=== PATIENT | female | born 1975 | race African-American/Black ===

== ENCOUNTER 2024-06-12 20:57 | Outpatient (OUT) | payer OTHER, SELFPAY | END 2024-06-12 20:58 | disposition home or self-care (01) | LOC: SLEEP 20:57 | PROVIDERS: PCP Family Medicine; Visit Provider Family Medicine | DX: G47.33 Obstructive sleep apnea (adult) (pediatric) (principal) | CPT/HCPCS: 95811 ==

== ENCOUNTER 2024-06-13 06:33 | Emergency (ER) | payer OTHER, SELFPAY ==
[2024-06-13 06:39] VITALS: BP 122/86; PULSE 74; TEMP 36.6; O2SAT 99; BMI 37.8
--- NOTE | 2024-06-13 06:49 | PC.NURSE ---
left side facial swelling that patient noticed when she woke up this morning. She had swelling of gums to left upper mouth yesterday, then had sleep study last night. She mentioned that she bumped her mouth and thinks that might be the cause. She states that she has also had some sinus issues and has been taking Sudafed. No other complaints, denies pain.
--- NOTE | 2024-06-13 07:26 | ED.DENTAL1 ---
HPI - Dental/Oral General Chief complaint: Dental/Oral Stated complaint: face swelling Time Seen by Provider: 06/13/24 07:04 Source: patient Mode of arrival: walk-in Limitations: no limitations History of Present Illness HPI Narrative: 48-year-old female presents to the emergency department for swelling to her left face. She notes that she has bad teeth in the left upper dentition and is overdue for having it looked at. She has not had difficulty breathing or swelling and has not had a fever. Symptoms present for a few days. Related Data Previous Rx's ?Medication ?Instructions ?Recorded fluconazole 150 mg tablet 150 mg PO ONCE #1 tab 06/13/24 penicillin V potassium 250 mg 250 mg PO QID 10 days #40 tabs 06/13/24 tablet Allergies Allergy/AdvReac Type Severity Reaction Status Date / Time metoclopramide (From Reglan) Allergy Severe Difficulty Verified 06/13/24 06:46 Breathing Sulfa (Sulfonamide Allergy Severe Difficulty Verified 06/13/24 06:46 Antibiotics) Breathing naproxen AdvReac Severe Unknown Verified 06/13/24 06:46 Review of Systems ROS Narrative A ten point review of systems is negative except as noted above. PFSH PFSH Social History Little interest or pleasure in doing things: not at all Feeling down, depressed, or hopeless: not at all Exam Narrative Exam Narrative: Nurses note and vital signs reviewed and patient is not hypoxic. General: The patient appears well and in no apparent distress. Patient is resting comfortably on cart. Skin: Warm, dry, no pallor noted. There is no rash noted. Head: Normocephalic, atraumatic Eye: Normal conjunctiva, no drainage Ears, Nose, Mouth, and Throat: oral mucosa is moist. Nares patent. Mild swelling present to the left side of her face near the left jaw. No swelling to the floor of her mouth and she is handling oral secretions well. Significant dental caries present in the left upper dentition with many teeth eroded down to the gumline. No bleeding or pus present. Cardiovascular: Regular Rate and Rhythm Respiratory: Patient is in no distress, no accessory muscle use, lungs are clear to auscultation, no wheezing, rales or rhonchi Back: non-tender GI: Soft and nontender Musculoskeletal: The patient has no evidence of calf tenderness, no pitting edema, symmetrical pulses noted bilaterally Neurological: A&O, normal speech Psychiatric: Cooperative Constitutional Vital Signs, click to edit/add: Last Vital Signs Temp 97.9 F 06/13/24 06:39 Pulse 74 06/13/24 06:39 Resp 16 06/13/24 06:39 BP 122/86 06/13/24 06:39 Pulse Ox 99 06/13/24 06:39 O2 Del Method Room Air 06/13/24 06:39 Course Vital Signs Vital signs: Vital Signs Temperature 97.9 F 06/13/24 06:39 Pulse Rate 74 06/13/24 06:39 Respiratory Rate 16 06/13/24 06:39 Blood Pressure 122/86 06/13/24 06:39 Pulse Oximetry 99 06/13/24 06:39 Oxygen Delivery Method Room Air 06/13/24 06:39 Temperature 97.9 F 06/13/24 06:39 Pulse Rate 74 06/13/24 06:39 Respiratory Rate 16 06/13/24 06:39 Blood Pressure 122/86 06/13/24 06:39 Pulse Oximetry 99 06/13/24 06:39 Oxygen Delivery Method Room Air 06/13/24 06:39 MDM - Dental/Oral MDM Narrative Medical decision making narrative: She is provided a prescription for penicillin and Diflucan. 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 She was also given dental referral list. Treatment diagnosis and follow-up were discussed with the patient. Differential Diagnosis Differential diagnosis: Likely gingival abscess, dental caries, toothache and dental abscess Discharge Plan Discharge Chief Complaint: Dental/Oral Clinical Impression: Dental caries Patient Disposition: Home, Self-Care Time of Disposition Decision: 07:24 Condition: Good Mode of Transportation: Private Vehicle Prescriptions / Home Meds: New penicillin V potassium 250 mg tablet 250 mg PO QID 10 Days Qty: 40 0RF fluconazole 150 mg tablet 150 mg PO ONCE Qty: 1 0RF Print Language: Maori Instructions: Toothache (ED) Additional Instructions: Follow-up with dentistry, list provided Referrals: Destin Simeon MD [Primary Care Provider] - 1 week
== END 2024-06-13 07:36 | disposition home or self-care (01) ==
PROVIDERS: Emergency Provider Emergency Medicine; PCP Family Medicine
DX: K02.9 Dental caries, unspecified (principal)
CPT/HCPCS: 99283

== ENCOUNTER 2024-09-05 19:46 | Outpatient (REF) | payer OTHER, SELFPAY ==
[2024-09-08 11:07] LABS: Age Gdln ACOG Testing Note (.); HPV Aptima Negative (Negative); IGP, Aptima HPV, rfx 16/18,45 Note (.)
== END 2024-09-05 19:47 | disposition home or self-care (01) ==
LOC: LAB 19:46
PROVIDERS: PCP Family Medicine; Visit Provider Obstetrics & Gynecology
DX: Z01.419 Encounter for gynecological examination (general) (routine) without abnormal findings (principal)
CPT/HCPCS: 87624; 88175

== ENCOUNTER 2025-01-22 01:16 | Emergency (ER) | payer OTHER, SELFPAY ==
--- OUTSIDE RECORDS SUMMARY | 2025-01-15 15:03 | XMS_ITS | Encounter Summary ---
Author Organization [facility] tem Address [id number] [address] [place] [address] Care Team Providers [employer] Name Role Phone Destin Hubbard MD Primary Care Provider [phone] Reason for Referral * Misc (Routine) - Pending Review Specialty Diagnoses / Procedures Referred By Contac t Referred To Contact Procedures Discharge Follow-Up Nikhil Woodall MD [address] [place] [address] Phone: tel: fax: Referral ID Status Reason Start Date Expiration Date V isits Requested Visits Authorized [id number] Pending Review 01/16/2025 01/16/2026 1 1 * Misc (Routine) - Pending Review Specialty Diagnoses / Procedures Referred By Jasbir keane Referred To Contact Diagnoses Weakness History of stroke 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 Procedures Follow-up with primary care provider Nikhil Woodall MD [address] [place] [address] Phone: tel: fax: Referral ID Status Reason Start Date Expiration Date V isits Requested Visits Authorized [id number] Pending Review 01/16/2025 01/16/2026 1 1 * Consultation (Routine) - Authorized Specialty Diagnoses / Procedures Referred By Jasbir keane Referred To Contact Rehabilitation Diagnoses Weakness History of stroke 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 Nikhil Woodall MD [address] [place] [address] Phone: tel: fax: [facility] [address] [place] [address] Phone: tel: fax: Referral ID Status Reason Start Date Expiration Date Visits Requested Visits Authorized [id number] Authorized Specialty Services Required 01/16/2025 07/19/2025 12 12 Reason for Visit * Reason Comments Stroke Alert * Auth/Cert (Routine) Specialty Diagnoses / Procedures Referred By Jasbir keane Referred To Contact Diagnoses Weakness Nikhil Woodall MD [address] [place] [address] Phone: tel: fax: Referral ID Status Reason Start Date Expiration Date Visits Re quested Visits Authorized [id number] 1 1 Encounter Details Date Type Department Care Team (Latest Contact Info) Description 01/15/2025 3:03 PM EDT - 01/16/2025 3:45 PM EDT Hospital Encounter [facility] [address] [place] [id number] Severiano Shah MD [address] [place] [address] Nikhil Woodall MD [address] [place], [place] [id number] 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 No 01/16/2025 AUDIT-C Answer Date Recorded Q1: How often do you have a drink containing alc ohol? 2-4 times a month 12/27/2024 Q2: How many drinks containi ng alcohol do you have on a typical day when you are drinking? 1 or 2 12/27/2024 Q3: How often do you have si x or more drinks on one occasion? Never 12/27/2024 PHQ-2 Answer Date Recorded Total Score 0 12/27/2024 PRAPARE - Transportation Answer Date Re corded In the past 12 months, has l ack of transportation kept you from medical appointments or from getting medications? No 12/29 In the past 12 months, has l ack of transportation kept you from meetings, work, or from getting things needed for daily living? No 01/16/2025 Housing Instability Answer Date Recorde d Are you worried or concerned that in the next two months you may not have stable housing that you own, rent or stay in as a part of a household? No 01/16/2025 Childcare Answer Date Recorded Childcare Unknown 02/08/2019 Employment Answer Date Recorded Employment Unknown 02/08/2019 Hunger Screening Answer Date Recorded Within the past 12 months we worried whether our food would run out before we got money to buy more. Never True 01/16/2025 Within the past 12 months th e food we bought just didn't last and we didn't have money to get more. Never True 01/16/2025 Purpose - Life Answer Date Recorded Purpose and direction in life Unknown Comments No Sex and Gender Information Value Date Recorded Sex Assigned at Not on file Legal Sex Female 11:27 AM EDT Gender Identity Not on file Sexual Orientation Not on file documented as of this encounter Last Filed Vital Signs Vital Sign Reading Time Taken Comments Blood Pressure 105/62 01/16/2025 12:13 PM EDT Pulse 75 01/16/2025 12:13 PM EDT Temperature 36.9 C (98.5 F) 01/16/2025 12:13 PM EDT Respiratory Rate 17 01/16/2025 12:13 PM EDT Oxygen Saturation 99% 01/16/2025 12:13 PM EDT Inhaled Oxygen Concentration - - Weight 104 kg (229 lb 4.8 oz) 01/15/2025 6:22 PM EDT Height 154.9 cm (5' 1 ) 01/15/2025 6:22 PM EDT Body Mass Index 43.33 01/15/2025 6:22 PM EDT documented in this encounter Functional Status * Question Answer Date of Assessment Author Functional Status Minimum assistance 01/15/2025 8:00 P M EDT Abdirashid Hernandez RN * Intimate Partner Violence Question Answer Date of Assessment Author Within the last year, have y ou been humiliated or emotionally abused in other ways by your partner or ex-partner? No 01/16/2025 12:00 AM Abdirashid Garcia RN Within the last year, have y ou been afraid of your partner or ex-partner? No 01/16/2025 12:00 AM ED T Abdirashid Hernandez RN Within the last year, have y ou been raped or forced to have any kind of sexual activity by your partner or ex-partner? No 01/16/2025 12:00 AM Abdirashid Garcia RN Within the last year, have y ou been kicked, hit, slapped, or otherwise physically hurt by your partner or ex-partner? No 01/16/2025 12:00 AM EDT Abdirashid Hernandez RN documented as of this encounter Mental Status * Question Answer Entry Date Author Overall Cognitive Status X 01/16/2025 2:08 PM EDT Fannie Nolasco CCC-MANAGER OF SOFTWARE documented in this encounter Discharge Summaries * Nikhil Woodall MD - 01/16/2025 2:30 PM EDT Images from the original note were not included. [facility] Medicine Discharge Summary Patient: Jamey Ceja Date of : 1975 Room: [facility] Encounter date: 01/16/25 DATE OF ADMISSION: 01/15/2025 DATE OF DISCHARGE:01/16/2025 DISCHARGE DIAGNOSES Principal Problem: Stroke-like symptoms Active Problems: TTP (thrombotic thrombocytopenic purpura) ([facility]) Weakness History of thrombectomy History of stroke Leukocytosis Hypomagnesemia Acute deep vein thrombosis (DVT) of femoral vein of right lower extremity ([facility]) CONSULTANTS Tele-Neurology PCP: DESTIN HUBBARD MD HOSPITAL COURSE SUMMARY Jamey Ceja is a 49 y.o. female who presents with complaints of left- sided facial droop and slurred speech last known well was 518 at 9:30 p.m. patient's family reports she had a recent stroke they are unsure if she is going to require more assistance at home or possible going to an assisted living at time of discharge due to requiring more help with her activities of daily living. Patient has been 100% compliant with medications including Eliquis. Last stroke was 12/26/2024 Is a known everyday smoker. Blood pressure normotensive in the ER NIH stroke score is a 6 secondaryto left arm falls right leg falls left leg falls articulation and mild dysarthria. Stroke alert wascontacted recommended admitting for MRI. Patient is not a TNK candidate secondary to being out of the time window. Results in the ER include white blood cell count 11.5 hemoglobin 10.4 hematocrit 32.1 platelets 218absolute neutrophils 9.3 INR normal PTT 25 electrolytes normal excluding 190 glucose calcium 8.3 GFR 85 phosphorus is 2.9 troponin initially done x1 negative TSH 0.[address] brain No acute intracranial abnormality, CT angiogram was completed with also no large vessel pathologies. MRI was completed, T1 phase could not be complete his secondary to claustrophobia howeverthere was no signs of ischemia or signs of CVA. Patient's neurological status returned to her baseline. Multiple family members are present in the room and did share concerns for mood and lack of motivation. Patient is insomnia, narcoleptic, unmotivated, bitter since her last CVA. Has lost some function since that time. She was evaluated by Physical therapy and MANAGER OF SOFTWARE without any significant concerns. Elected for outpatient physical therapy to be continued. No major cerebrovascular events was found. Most likely diagnosis during this admission was likely combination of depression with migraine headache with neuropathic symptoms. Code Status: Full Code Labs Recent Results (from the past 48 hours) Bedside Glucose *Place/Obtain serum glucose if >500 per glucometer. Collection Time: 01/15/25 3:06 PM Result Value Ref Range Bedside Glucose (POC) 174 (H) 65 - 99 mg/dL Troponin I, High Sensitivity Collection Time: 01/15/25 3:20 PM Narrative The following orders were created for panel order Troponin I, High Sensitivity. Procedure Abnormality Status --------- ------ Troponin I, High Sensiti...[[id number]] Normal Final result Troponin I, High Sensiti...[[id number]] Please view results for these tests on the individual orders. Basic Metabolic Panel Collection Time: 01/15/25 3:20 PM Result Value Ref Range SODIUM 135 134 - 146 mmol/L POTASSIUM 4.3 3.5 - 5.0 mmol/L CHLORIDE 101 98 - 109 mmol/L CARBON DIOXIDE 25 22 - 32 mmol/L ANION GAP 9 5 - 15 mmol/L BLOOD UREA NITROGEN 19 5 - 23 mg/dL CREATININE 0.85 0.40 - 1.00 mg/dL GLUCOSE 190 (H) 65 - 99 mg/dL CALCIUM 8.3 (L) 8.5 - 10.5 mg/dL EGFR Non-Race Dependent 85 >=60 ml/min/1.73sq.m Protime & INR Collection Time: 01/15/25 3:20 PM Result Value Ref Range PROTIME 12.2 9.8 - 13.2 sec INR 1.1 0.9 - 1.2 APTT Collection Time: 01/15/25 3:20 PM Result Value Ref Range APTT 25 (L) 26 - 37 sec CBC auto differential Collection Time: 01/15/25 3:20 PM Result Value Ref Range WBC 11.5 (H) 4 - 11 x10E9/L RBC Count 3.48 (L) 3.8 - 5.2 X10E12/L Hemoglobin 10.4 (L) 11.7 - 15.5 g/dL Hematocrit 32.1 (L) 35 - 47 % MCV 92 80 - 100 fL MCH 29.8 27 - 34 pg MCHC 32.3 32 - 36 g/dL RDW 20.0 (H) 11.5 - 15 % Platelet Count 218 150 - 450 X10E9/L MPV 7.4 7 - 12 fL Myelocyte 1 % % Bands Neutrophils 3 % Neutrophils Relatives 77 % Lymphocytes Relative 15 % Monocytes Relative 1 % Eosinophils Relative 1 % Atypical Lymphocytes Relative 2 % nRBC 1 Neutrophils Absolute (M) 9.3 (H) 1.5 - 6.6 10*3/uL Lymphocytes Absolute 1.9 1.0 - 3.5 10*3/uL Monocytes Absolute 0.1 0.0 - 0.9 10*3/uL Eosinophils Absolute 0.1 0.0 - 0.4 10*3/uL Hypochromia 1+ Polychromasia 1+ Dacryocytes 1+ Differential Type MANUAL DIFFERENTIAL Troponin I, High Sensitivity 0 Hour Collection Time: 01/15/25 3:20 PM Result Value Ref Range TROPONIN I, HIGH SENSITIVITY 9 <16 ng/L Thyroid profile includes TSH FT4 Collection Time: 01/15/25 3:20 PM Result Value Ref Range FREE T4 0.89 0.61 - 1.60 ng/dL TSH 0.46 (L) 0.49 - 4.67 uIU/mL Phosphorus Collection Time: 01/15/25 3:20 PM Result Value Ref Range PHOSPHORUS 2.9 2.4 - 4.9 mg/dL Bedside Glucose *Place/Obtain serum glucose if >500 per glucometer. Collection Time: 01/15/25 9:55 PM Result Value Ref Range Bedside Glucose (POC) 225 (H) 65 - 99 mg/dL Comprehensive metabolic panel Collection Time: 01/16/25 4:28 AM Result Value Ref Range SODIUM 137 134 - 146 mmol/L POTASSIUM 3.5 3.5 - 5.0 mmol/L CHLORIDE 102 98 - 109 mmol/L CARBON DIOXIDE 23 22 - 32 mmol/L ANION GAP 12 5 - 15 mmol/L BLOOD UREA NITROGEN 18 5 - 23 mg/dL CREATININE 0.93 0.40 - 1.00 mg/dL GLUCOSE 140 (H) 65 - 99 mg/dL CALCIUM 9.0 8.5 - 10.5 mg/dL TOTAL PROTEIN 5.7 (L) 6.0 - 8.0 g/dL ALBUMIN 3.2 3.2 - 5.3 g/dL ALKALINE PHOSPHATASE 65 39 - 130 U/L AST 17 <=41 U/L ALT 39 (H) <=31 U/L BILIRUBIN,TOTAL 0.6 0.3 - 1.2 mg/dL EGFR Non-Race Dependent 76 >=60 ml/min/1.73sq.m Magnesium Collection Time: 01/16/25 4:28 AM Result Value Ref Range MAGNESIUM 1.7 (L) 1.8 - 2.6 mg/dL CBC auto differential Collection Time: 01/16/25 4:28 AM Result Value Ref Range WBC 14.0 (H) 4 - 11 x10E9/L RBC Count 3.30 (L) 3.8 - 5.2 X10E12/L Hemoglobin 10.1 (L) 11.7 - 15.5 g/dL Hematocrit 30.8 (L) 35 - 47 % MCV 93 80 - 100 fL MCH 30.5 27 - 34 pg MCHC 32.7 32 - 36 g/dL RDW 20.2 (H) 11.5 - 15 % Platelet Count 204 150 - 450 X10E9/L MPV 7.9 7 - 12 fL Myelocyte 1 % % Bands Neutrophils 1 % Neutrophils Relatives 70 % Lymphocytes Relative 23 % Monocytes Relative 5 % nRBC 1 Neutrophils Absolute (M) 10.0 (H) 1.5 - 6.6 10*3/uL Lymphocytes Absolute 3.2 1.0 - 3.5 10*3/uL Monocytes Absolute 0.7 0.0 - 0.9 10*3/uL RBC Morphology Reviewed Differential Type MANUAL DIFFERENTIAL Lipid profile Collection Time: 01/16/25 4:28 AM Result Value Ref Range CHOLESTEROL 170 150 - 200 mg/dL TRIGLYCERIDE 97 27 - 150 mg/dL HDL CHOLESTEROL 71 >39 mg/dL LDL (CALC) 80 <130 mg/dL CHOLESTEROL:HDL 2.4 1.0 - 5.0 VERY LOW LIPOPROTEIN 19 0 - 30 mg/dL Hemoglobin A1c Collection Time: 01/16/25 4:28 AM Result Value Ref Range HEMOGLOBIN A1C 5.6 4.4 - 5.6 % EST. AVERAGE GLUCOSE 114 mg/dL Extra Tubes Collection Time: 01/16/25 4:28 AM Narrative The following orders were created for panel order Extra Tubes. Procedure Abnormality Status --------- ------ Light Blue Top[[id number]] Final result Please view results for these tests on the individual orders. Light Blue Top Collection Time: 01/16/25 4:28 AM Result Value Ref Range Extra Tube Auto Resulted Procalcitonin Collection Time: 01/16/25 4:28 AM Result Value Ref Range PROCALCITONIN 0.06 (H) <0.05 ng/mL Narrative <0.50 ng/mL - Low risk of severe sepsis and/or septic shock. <2.00 ng/mL - Recommend retesting within 6-24 hours. >2.00 ng/mL - High risk of sepsis and/or septic shock. Iron and TIBC Collection Time: 01/16/25 4:28 AM Result Value Ref Range IRON 84 50 - 170 ug/dL TRANSFERRIN 216 168 - 336 mg/dL IRON BINDING 302 250 - 425 ug/dL IRON SATURATION 28 15 - 50 % SATURATION Ferritin Collection Time: 01/16/25 4:28 AM Result Value Ref Range FERRITIN 90 11 - 307 ng/mL Urinalysis Collection Time: 01/16/25 11:35 AM Specimen: Urine Result Value Ref Range COLOR Yellow Yellow, Colorless TURBIDITY Clear Clear SPECIFIC GRAVITY 1.020 1.003 - 1.035 NITRITE Negative Negative PH,URINE 6.5 5.0 - 8.5 LEUKOCYTE ESTERASE Negative Negative PROTEIN Negative Negative KETONES (URINE) Negative Negative UROBILINOGEN 0.2 eu/dL 0.2 eu/dL, 1.0 eu/dL BILIRUBIN (URINE) Negative Negative BLOOD/HGB Negative Negative GLUCOSE (URINE) Negative Negative, 250 mg/dL, >1000 mg/dL Narrative Urine received without preservative. Delays in transport may affect results. Interpret with caution. A clinical correlation is recommended. , urine Collection Time: 01/16/25 11:35 AM Specimen: Urine Result Value Ref Range URINE Negative Negative Bedside Glucose *Place/Obtain serum glucose if >500 per glucometer. Collection Time: 01/16/25 12:19 PM Result Value Ref Range Bedside Glucose (POC) 155 (H) 65 - 99 mg/dL Radiology MR brain without contrast Result Date: 01/16/2025 Narrative: EXAM: MRI BRAIN WITHOUT CONTRAST CLINICAL HISTORY: CVA, rule out. TECHNIQUE: TECHNIQUE: Routine multiplanar multisequence MR imaging of the brain was performed without contrast. Please note, sagittal T1 postcontrast sequence was not obtained as the patient could not tolerate completion of the examination due to claustrophobia. COMPARISONS: MRI dated 12/27/2024 FINDINGS: There is no restricted diffusion. There are only a couple of faint tiny foci of FLAIR hyperintensity within the cerebral white matter, nonspecific though most commonly seen in the setting of chronic ischemic small vessel disease. The wilson- white matter differentiation is preserved. There is no intracranial mass effect. The ventricles are proportional to the overall brain volume without evidence for outflow obstruction. There is no shift of the midline structures and the basal cisterns are widely patent. There isno susceptibility to suggest the presence of intracranial blood degradation products. There is a small focus of nonaggressive polypoid mucosal thickening in a left ethmoid air cell. The paranasal sinuses are otherwise well aerated. The mastoids are clear. IMPRESSION: 1. Please note, a sagittal T1 postcontrast sequence was not obtained as the patient could not tolerate completion of the examination due to claustrophobia. 2. No evidence for acute intracranial abnormalities. 3. There are only a couple of tiny foci of FLAIR hyperintensity within the cerebral white matter. These are nonspecific, though most commonly seen in the setting of chronic ischemic small vessel disease. They can also be seen in the setting of chronic headaches. There is no evidence for an acute infarct or intracranial ma ss effect. Finalized by Leonard Quinn MD on 01/16/2025 10:[address] angiogram head Result Date: 01/15/2025 Narrative: EXAM:CT CTA HEAD INDICATION: Left-sided facial droop COMPARISON: 12/26/2024 TECHNIQUE/PROTOCOL: CT angiogram of the head was performed following intravenous administration of 100 cc Omnipaque 350 nonionic intravenous contrast. 3-D maximum intensity projection images generated and reviewedunder concurrent physician supervision. Automated exposure control was utilized. Arterial blood flow was measured to assist the stroke clinical team in the diagnosis of large vessel occlusion in patients undergoing screening for acute ischemic stroke using Rapid AI software when clinically indicated. FINDINGS: Intracranial Intracranial ICAs: Normal bilaterally. MCAs: Patent bilaterally with symmetric distal arborization. ACAs: Normal bilaterally. AComm: Normal P- Comms and deliverer food: deliverer food are patent bilaterally. Posterior communicating arteries are not well visualized. Vertebral arteries: Normal tothe confluence with the basilar artery. Basilar artery: Normal. IMPRESSION: No large vessel occlusion, critical stenosis, or sizable aneurysm. Finalized by Rad Morales on 01/15/2025 4:[address] angiogram carotid Result Date: 01/15/2025 Narrative: CT ANGIOGRAM OF THE NECK CLINICAL INFORMATION: stroke like symptoms. TECHNIQUE: CT angiogram performed following intravenous administration of nonionic intravenous contrast. Coronal and sagittal and 3-D volume rendered maximum intensity projection images generated and reviewed under concurrent physician supervision. Automated exposure control utilized. The [place] Symptomatic Carotid Endarterectomy Trial (NASCET) method for calculating the degree of stenosis was utilized for stenosis measurements. COMPARISON: 12/26/2024 FINDINGS: There is a standard aortic arch configuration.There is no significant stenosis at the arch origins of the vessels. The visualized portions of the subclavian arteries are unremarkable. The common carotid arteries are well opacified without evidence for significant stenosis. The right carotid bifurcation is unremarkable with a widely patent origin of the internal carotid artery. The left carotid bifurcation is unremarkable with a widely patentorigin of the internal carotid artery. The internal carotid arteries are symmetric and well opacified throughout their cervical courses. The vertebral arteries are symmetric. The vertebral arteries are well opacified throughout their cervical courses and join to form a normal diameter basilar artery. IMPRESSION: Stable normal CTA neck. There is no stenosis in the neck. All CT scans at this facility use dose modulation, iterative reconstruction, and/or weight based dosing when appropriate to reduce radiation dose to as low as reasonably achievable. Finalized by Leonard Quinn MD on 01/15/2025 4:[address] brain without contrast stroke alert Result Date: 01/15/2025 Narrative: STUDY: CT BRAIN WO CONT STROKE ALERT INDICATION: Stroke, follow up; assessment of stroke/hemorrhage:. TECHNIQUE: * CT head was performed without intravenous contrast using the standard protocol. Automated exposure control was utilized. * All CT scans at this facility use dose modulation,iterative reconstruction, and/or weight based dosing when appropriate to reduce radiation dose to as low as reasonably achievable. FINDINGS: No evidence of acute intracranial hemorrhage, territorial infarct, mass effect, midline shift, or extra-axial fluid collection. Ventricles, sulci and cistern are unremarkable. Brain volume is age appropriate. Partially empty sella. Orbits and globes appear unremarkable. Soft tissues are unremarkable. Opacification of the left anterior ethmoid air cell. Mastoid air cells are broadly clear. No evidence of aggressive osseous lesion. IMPRESSION: * No acute intracranial abnormality, by CT. MRI is more sensitive for evaluation of ischemia or subtle parenchymal abnormalities. * Partially empty sella. Finalized by Dillon Escobar on 01/15/2025 3:31 PM Vas venous duplex lwr single right Result Date: 01/04/2025 Narrative: Previous: Previous lower extremity venous duplex exam performed 12/29/2024: RIGHT: ACUTE femoral deep vein thrombosis (DVT). Right: Partially compressible common femoral with Isoechoic intraluminal content and spontaneous, phasic spectral Doppler signals. Remaining visualized deep venous segments are compressible with spontaneous phasic spectral Doppler waveforms. Superficial veins are compressible. Left: Common femoral vein is compressible with spontaneous phasic / spectral Doppler waveforms. Conclusions: RIGHT:Common femoral deep vein thrombosis (DVT), UNDETERMINED AGE.NO EVIDENCE of superficial vein thrombosis of the lower extremity.LEFT:NO EVIDENCE of deep vein thrombosis (DVT)of the common femoral vein. Comparison is made to previous lower extremity venous duplex examination dated December 29, 2024 (RIGHT: ACUTE femoral deep vein thrombosis (DVT)). The acute right common femoral DVT has evolved into a more chronic process. No new thrombotic material was identified. Recommendations: Any questions prior to finalization, please call the reading physician during normal businesshours at the phone number beside their name. Vas venous duplex lwr bilateral Result Date: 12/31/2024 Narrative: Right: Dilated, partially compressible common femoral with hypoechoic intraluminal content and spontaneous, phasic spectral Doppler signals. Remaining visualized deep venous segments are compressible with spontaneous phasic spectral Doppler waveforms. Superficial veins are compressible. Left: Lower extremity deep veins are compressible with spontaneous phasic spectral Doppler waveforms; superficial veins are compressible without intraluminal content. Conclusions: RIGHT:ACUTE femoral deep vein thrombosis (DVT). NO EVIDENCE of superficial vein thrombosis of the lower extremity. LEFT:NO EVIDENCE of deep or superficial vein thrombosis of the lower extremity. Recommendations: Any questions prior to finalization, please call the reading physician during normal business hours at the phone number beside their name. IR CICV non tunneled more than 5 years Result Date: 12/30/2024 Narrative: CENTRAL VENOUS CATHETER PLACEMENT WITH ULTRASOUND GUIDANCE DATE: 12/30/2024 2:36 PM INDICATION: Urgent plasmapheresis ATTENDING: Pedro Rivera MD SEDATION: 50 mcg of fentanyl was given for pain control. Lidocaine 1% was given for local anesthesia. RADIATION DOSE: Automatic radiation exposure lowering techniques were utilized. All elements of maximal sterile barrier techniques followed including: cap and mask and sterile gown and sterile gloves and a large sterile sheet and hand hygiene and 2% chlorhexidine for cutaneous antisepsis. The total fluoroscopic time used during the procedure was 0.4 min, a total of 1 fluoroscopic spot images were obtained and saved in PACS , and the r eference air kerma was 3.74 mGy. PROCEDURE: The procedure, risks, including technical failure, bleeding, infection, vessel injury, arrhythmia, loss of limb, and , and alternatives, were discussed with the patient and all questions were answered. Written informed consent obtained. Accompanying paperwork was verified for accuracy. Directed history and physical exam performed prior to the procedure. Medication reconciliation performed by nursing personnel. Procedure was performed using a cap,sterile gown, sterile gloves, a large sterile sheet, hand hygiene and 2% chlorhexidine for cutaneous antisepsis. The patient was positioned supine on the table and prepped and draped in usual sterilefashion. A critical pause was performed with assisting personnel just prior to the procedure with the patient's identity confirmed using 2 identifiers, confirming site and side. Ultrasound was used to demonstrate a patent right internal jugular vein and appropriate directional flow, with an image saved in the permanent medical record. 1% lidocaine with epinephrine was used for local anesthesia. Asmall skin incision was made with blunt dissection into the subcutaneous tissues. The vein was thenpunctured under real-time sonographic guidance. A wire was advanced in to the IVC. The tract was then upsized to accommodate a 15 cm trialysis catheter with tip terminating at the cavoatrial junction. Catheter was secured in place with suture. Catheter function was tested, and all lumens were foundto function well. Lumens of the catheter were flushed with anticoagulant. The patient tolerated theprocedure well with no immediate complication IMPRESSION: Successful image guided placement of a tri alysis catheter via the right internal jugular vein with the catheter tip terminating at the cavoatrial junction. The catheter is available for immediate use. Finalized by Pedro Rivera MD on 12/30/2024 2:37 PM Echo complete W/O contrast Result Date: 12/28/2024 Narrative: Left Ventricle: Left ventricle appears normal in size. Systolic function is normal with an ejection fraction of 55-60%. Left Atrium: Left atrium is normal in size. Agitated saline bubble study revealed no evidence of right to left interatrial shunting . Right Ventricle: Right ventricularsize appears normal. The right ventricular basal diameter is 31.0 mm. Systolic function is normal. Aortic Valve: The aortic valve is trileaflet. There is trace regurgitation. There is no evidence of aortic valve stenosis. Ultrasound abdomen limited Result Date: 12/28/2024 Narrative: US ABDOMEN LMTD HISTORY: Thrombocytopenia COMPARISON: None TECHNIQUE: Multiple real-timegrayscale images were obtained in transverse and sagittal projections. Color Doppler was used. FINDINGS: Diffusely increased hepatic echogenicity compatible with hepatocellular disease. Although nonspecific, this is most likely secondary to steatosis. Within these limits, no focal hepatic lesion demonstrated. No intrahepatic biliary dilatation. The common bile duct is not dilated and measures 0.5cm. Main portal vein is patent with appropriate direction of flow and peak velocity of 28.1 cm/s. The gallbladder is surgically absent. Visualized portions of the pancreatic head and body are unremarkable. Included images of the spleen demonstrate normal echotexture. The spleen is normal in size measuring 8.7 cm in length. IMPRESSION: * Hepatic steatosis. * Otherwise unremarkable limited abdominal ultrasound. Approved by Carlo Epps DO on 12/28/2024 7:32 AM Prince Mireles DO have personally reviewed the image(s) and agree with and/or edited the report Finalized by Prince Orozco DO on 12/28/2024 7:56 AM MR brain without contrast Result Date: 12/28/2024 Narrative: STUDY: MRI brain without contrast CLINICAL HISTORY: Stroke. Thrombectomy December 26, 2024 COMPARISON:May 21, 2013 Procedure: Multiplanar, multisequence imaging performed through the brain, without IV contrast. Findings: There are no intracranial masses, mass-effect, extra-axial fluidcollection, or hydrocephalus. Sensitivity for acute hemorrhage limited on MRI, but grossly no acutehemorrhage identified. Midline sagittal structures are negative including pituitary fossa, infundibulum, optic chiasm, corpus callosum, brainstem, fourth ventricle, cerebellum, and cranio-cervical junction. There are appropriate flow voids in large cerebral vessels on T2 weighted imaging. Punctate restricted diffusion within the right occipital lobe suggests a acute lacunar infarct axial image 31series 8. Similar lacunar infarct left insular cortex axial image 37 IMPRESSION: * Acute lacunar infarcts left insular cortex and right occipital lobe suggesting embolic phenomenon. No other acute findings. * Note is again made an empty sella morphology which can be physiologic but can also be seenwith idiopathic intracranial hypertension and best assessed in combination with other clinical dataWorkstation:[id number] Finalized by Juanpablo Scanlon MD on 12/28/2024 5:59 AM Neuro Invasiv Result Date: 12/27/2024 Narrative: Jamey Ceja is 49 y.o. who was transferred to [facility] with acute onsetleft hemispheric stroke symptoms. Noncontrast head CT scan was unrevealing for acute findings. On arrival NIH stroke scale score was 10. ASPECT score was 10. CT angiogram showed concern for distal left MCA M1 occlusion. Given the patient's profound symptoms and relative sparing of the cortical regions we felt that the patient may still benefit from mechanical thrombectomy. The risks, alternates and benefits of the procedure were discussed with the patient's family. Up to 5-8 percent risk of complication including but not limited to failure, arterial injury, stroke, intercerebral hemorrhage, co ntrast nephropathy, groin complication and/or was quoted. Consent was obtained. Procedure: Jamey Ceja was identified and brought to the neuro IR suite. Patient was placed supine on the angio table. Bilateral groins were shaved, prepped and the patient was draped in the usual sterile manner. Using modified Seldinger technique a 6 [place] sheath was advanced in the right common femoral artery. Through this sheath we now advanced a 5 [place] Seymour 2 catheter over an 035 wire into the left subclavian artery. Selective catheterization angiography of the left common carotid, left internal carotid and right common femoral arteries were performed. Angiographic runs from the left common carotid artery showed intracranial left MCA M1 occlusion in its distal course. At this stage, an exchange length wire was advanced in the left internal carotid artery. The diagnostic catheter andthe short groin sheath was exchanged for a 6 [place] 90 cm NeuronMax sheath which was advanced into the distal cervical segment of the left internal carotid artery. Through this sheath we now advanceda triaxial assembly of Dory 6 [place] mid size catheter over a velocity microcatheter and a microwire into the supraclinoid segment of the left internal carotid artery. While maintaining a broad J at the tip of the microwire, the microcatheter was advanced to the site of occlusion. At this stage the mid size catheter was advanced over the micro wire micro catheter into the distal leftMCA M1 segment at the site of occlusion. Microwire & microcatheter were retrieved. Pump aspiration was performed. Small clot was retrieved. Follow-up angiographic run from the guide sheath showedthat the guide now in the external carotid artery. At this point, NeuroMax was pulled down into theleft common carotid artery. Under roadmap, Dory 6 [place] was advanced over synchro microwire intothe distal cervical ICA. Follow-up angiographic run from the Madeline catheter showed recanalization of the left middle cerebral artery. With pump aspiration, the Madeline 6 [place] was retrieved and then we did angiographic mckinney from the guide sheath which showed severe vasospasm involving the mid cervical ICA and unfortunately we occlusion of the distal left MCA M1 segment. Now using same triaxial system composed of Dory 6 [place] mid size catheter over a velocity microcatheter and a syncro 014 microwire into the supraclinoid segment of the left internal carotid artery. While maintaining a broad J at the tip of the microwire, the microcatheter was advanced to the site of occlusion. Dory 6F catheter was advanced over the micro wire micro catheter into the distal left MCA M1 segment at the site of occlusion. Micro wire micro catheter were retrieved. Pump aspiration was performed. After the 2nd pass, angiographic runs now show complete recanalization of the left MCA and its distal branches. Recanalization is graded as TICI 3. Now Dory 6F was readvanced into the proximal cervical segment of the left ICA. 10 mg of verapamil was slowly infused. Follow-up angiographic run showed markedly improved flow through the left internal carotid artery. At this stage we decided to conclude the procedure. Sheath was removed. Groin was closed using Angio- Seal device. Findings: Left Common Carotid Artery Angiogram: The left common carotid artery angiogram shows normal opacification of the leftcommon carotid artery up to the level of its bifurcation. The left common carotid artery at its bifurcation shows mild atherosclerotic changes. The left external carotid artery is identified. The left external carotid artery fills well with normal supply to head and face. The left internal carotid artery fills well through its cervical, horizontal and ascending petrous, cavernous and supraclinoidsegments. In its supraclinoid course the left ophthalmic artery is identified. Abrupt truncation ofthe left MCA M1 segment in its distal segment noted. The left anterior cerebral artery and its distal branches fill well. In mid to late arterial phase terminal left DAVE division branches are fillingthe left MCA territory in a retrograde fashion. Left internal carotid artery angiogram prior to aspiration thrombectomy showed the above to better advantage. Left internal carotid artery angiogram post thrombectomy and intra-arterial verapamil infusion for ICA vasospasm now show that the left MCA M1 segment as completely recanalized. Distal left MCA division branches are filling well. No abrupt ve ssel cut off noted. No intracranial aneurysms noted. Additionally there is markedly improved flow through the left ICA. Right Common Femoral Artery Angiogram: The right common femoral artery angiogram shows normal opacification of the right common femoral artery and its branches with normal runoff to the distal extremity. Impression:Jamey Ceja underwent diagnostic cerebral angiography and aspiration thrombectomy for an acute left MCA M1 occlusion. At the end of the procedure successful TICI 3 recanalization was achieved. Of note, patient received 10 mg of intra-arterial verapamil for severe midcervical left ICA segment vasospasm. Groin puncture time was 1636. First pass was made at 1648 and recanalization was at 1705. Total number of passes were 2. SBP goal <[address] brain without contrast Result Date: 12/27/2024 Narrative: STUDY: CT HEAD WITHOUT CONTRAST CLINICAL HISTORY: Transient altered level of consciousness. COMPARISON: None. TECHNIQUE: CT head was performed without contrast utilizing axial reconstruction with images reviewed in bone and brain windows. Automated exposure control was utilized. FINDINGS: Large amount of motion artifact. No acute hemorrhage edema nor mass effect. Decreased attenuation in the left MCA distributions basal ganglia consistent with known areas of nonhemorrhagic ischemia. Ventricles and cisterns are stable. Chronic inflammation of the ethmoids. IMPRESSION: * Nonhemorrhagic ischemia left basal ganglia as best seen on recent CT perfusion. No significant mass effect or mid line shift at this point. All CT scans at this facility use dose modulation, iterative reconstruction, and/or weight based dosing when appropriate to reduce radiation dose to as low as reasonably achievable. Finalized by Mando Hicks MD on 12/27/2024 7:[address] brain without contrast Result Date: 12/26/2024 Narrative: CT BRAIN WO CONT CLINICAL HISTORY: Stroke COMPARISON: 12/26/2024 No contrast obtained. Contrast is present from recent contrast enhanced CTA's. FINDINGS: There may be some subtle decreased density identified primarily within the left basal ganglia with decreased differentiation of the lentiform nucleus. At this time the cortex is not affected and wilson-white differentiation of the cortexremains intact. No evidence of intracranial hemorrhage. The patient does have evidence of a large penumbra consistent with ischemia in the left MCA distribution on a recent perfusion scan. No mass effect or midline shift skull and paranasal sinuses unremarkable. IMPRESSION: * There may be some subtle decreased density identified primarily within the left basal ganglia with decreased differentiation of the lentiform nucleus. At this time the cortex is not affected and wilson-white differentiation of the cortex remains intact. * No evidence of intracranial hemorrhage. * The patient does have evidence of a large penumbra consistent with ischemia in the left MCA distribution on a recent perfusionscan * All CT scans at this facility use dose modulation, iterative reconstruction, and/or weight based dosing when appropriate to reduce radiation dose to as low as reasonably achievable Finalized by Hi Streeter MD on 12/26/2024 5:[address] cerebral perfusion analysis Result Date: 12/26/2024 Narrative: CT BRAIN PERFUSION IMAGING: HISTORY: strke TECHNIQUE: Axial CT brain perfusion was performed during intravenous administration of 40 mL Omnipaque 350. Postprocessing with RAPID and/or CallsFreeCallso Via software was used. Specifically, maps of cerebral blood flow, cerebral blood volume, mean transit time and Tmax were calculated by using the perfusion source data. COMPARISON: CT brain same date. Image quality: Sufficient Arterial input function GEMA selected: Proximal left MCA Venous outflow function GEMA: [place] of sinuses FINDINGS: CT Perfusion Characteristics: CBF<30% volume: 0 mL. Tmax>6.0s volume: 141 mL Mismatch volume: 141 mL Mismatch ratio: Infiltrate Tmax>4.0s volume: 185 Comment: Scattered foci of low density in the right frontal, left parietal and basal ganglia distribution. IMPRESSION: * Findings compatible with known left MCA disease with parameters suggesting large penumbra. Note: Perfusion-CT was required in this patient because it: - assesses brain perfusion, - allows to screen for brain ischemia even before morphological damage can be seen, - can confirm or rule out the presence of a large, hemispheric, ischemic stroke and/or look at the presence of at risk tissue. All CT scans at this facility use dose modulation, iterative reconstruction, and/or weight based dosing when appropriate to reduce radiation dose to as low as reasonably achievable. Work station:[id number] Finalized by Prince Orozco DO on 12/26/2024 4:42 PM X-ray chest 1 view stroke Result Date: 12/26/2024 Narrative: History: Mental status changes Procedure: Chest AP portable upright Comparison: 10/03/2013Findings: The heart and lungs show no acute findings, and the mediastinum and darin are grossly negative . No pneumothorax. Impression: No acute pulmonary process. Finalized by Esteban Schulz MD on 12/26/2024 2:[address] angiogram head Result Date: 12/26/2024 Narrative: CLINICAL INFORMATION: stroke alert TECHNIQUE: CT angiogram of the head was performed following intravenous administration of nonionic intravenous contrast. 3-D maximum intensity projectionimages generated and reviewed under concurrent physician supervision. Automated exposure control was utilized. Arterial blood flow was measured to assist the stroke clinical team in the diagnosis of large vessel occlusion in patients undergoing screening for acute ischemic stroke using Rapid AI software when clinically indicated. All CT scans at this facility use dose modulation, iterative reconstruction, and/or weight based dosing when appropriate to reduce radiation dose to as low as reasonably achievable. COMPARISON: No relevant prior studies available. FINDINGS: The internal carotid arteries are patent throughout their course in the carotid canal and cavernous segment. There is abrupt occlusion of the distal left M1 segment. The right middle cerebral artery is patent. The anterior cerebral arteries are patent bilaterally. The V4 segment of the vertebral arteries is patent, the posterior cerebral arteries are patent bilaterally without flow- limiting stenosis or occlusion. Dural venous sinuses are grossly patent. IMPRESSION: * Abrupt occlusion of the distal left M1 segment of the middle cerebral artery. The remainder of the major arterial vessels the head are patent. Neurointerventional consultation is recommended. The critical results of this examination were communicated directly with Dr. Celaya on 12/26/2024 at 2:47 PM Finalized by Pedro Rivera MD on 12/26/2024 2:[address] angiogram carotid Result Date: 12/26/2024 Narrative: CLINICAL INFORMATION: stroke alert TECHNIQUE: CT angiogram performed following intravenous administration of nonionic intravenous contrast. Coronal and sagittal and 3-D volume rendered maximum intensity projection images generated and reviewed under concurrent physician supervision. Automated exposure control utilized. The [place] Symptomatic Carotid Endarterectomy Trial (NASCET) method for calculating the degree of stenosis was utilized for stenosis measurements. All CT scansat this facility use dose modulation, iterative reconstruction, and/or weight based dosing when appropriate to reduce radiation dose to as low as reasonably achievable. COMPARISON: No relevant prior studies available. FINDINGS: Visualized lung apices are clear. The thyroid is unremarkable. The vessels are patent at their origins, the common carotid arteries are patent throughout their course in the neck, the carotid bulbs are patent bilaterally. The internal carotid arteries are patent throughout their course in the neck without flow-limiting stenosis or occlusion. The origin of the vertebralarteries is patent bilaterally, the vertebral arteries are patent throughout their course in the neck without flow-limiting stenosis or occlusion. Multiple nodules within the parotid glands bilaterally of undetermined clinical significance. IMPRESSION: * No major arterial flow-limiting stenosis or o cclusion within the neck. * Multiple nodules within the parotid glands bilaterally of undetermined clinical significance, findings can relate to intraparotid lymph nodes or other primary salivary gland tumors, recommend dedicated evaluation with ultrasound. Finalized by Franki Rivera MD on 12/26/2024 2:[address] brain without contrast stroke alert Result Date: 12/26/2024 Narrative: CT BRAIN WO CONT STROKE ALERT INDICATION: Stroke. TECHNIQUE: CT of the head without intravenous contrast. Reviewed in brain, bone, and soft tissue windows. COMPARISON: CT 07/03/2013. FINDINGS: No intracranial hemorrhage. No territorial loss of wilson-white differentiation. The ventricular system is normal in size and morphology. No extra-axial fluid collections or shift of midline structures. Patent basal cisterns. No depressed or displaced calvarial fracture. IMPRESSION: 1. No acute intracranial abnormality. 2. MRI would better assess for occult abnormalities such as acute ischemia. All CT scans at this facility use dose modulation, iterative reconstruction, and/or weight based dosing when appropriate to reduce radiation dose to as low as reasonably achievable. Finalized by Mike Cunningham MD on 12/26/2024 2:14 PM DISCHARGE INSTRUCTION Discharge disposition: Home with homecare Condition:Stable Activity: activity as tolerated Diet: Adult diet Regular Texture; Consistent Carb 255 grams (2000 kcal) OUTPATIENT FOLLOW UP: DESTIN HUBBARD MD within 7-14 days. Labs/Imaging/Pathology: OUTPATIENT PHYSICAL THERAPY Discharge Medications: Medication List START taking these medications Instructions Last Dose Given Next Dose Due buPROPion XL 150 mg 24 hr tablet Commonly known as: WELLBUTRIN XL Take 1 tablet (150 mg total) by mouth every morning. CONTINUE taking these medications Instructions Last Dose Given Next Dose Due * apixaban 5 mg tablet Commonly known as: ELIQUIS Take 1 tablet (5 mg total) by mouth in the morning and 1 tablet (5 mg total) before bedtime. * apixaban 5 mg tablet Commonly known as: ELIQUIS Take 1 tablet (5 mg total) by mouth in the morning and 1 tablet (5 mg total) before bedtime. aspirin 81 mg Take 1 tablet (81 mg total) by mouth in the morning. atorvastatin 40 mg tablet Commonly known as: LIPITOR Take 1 tablet (40 mg total) by mouth nightly. LORazepam 0.5 mg tablet Commonly known as: ATIVAN Take 1 tablet (0.5 mg total) by mouth in the morning and 1 tablet (0.5 mg total) before bedtime. nystatin powder Commonly known as: MYCOSTATIN Apply 1 Application topically in the morning and 1 Application before bedtime. omeprazole 40 mg capsule Commonly known as: PriLOSEC Take 1 capsule (40 mg total) by mouth in the morning. pantoprazole 20 mg EC tablet Commonly known as: PROTONIX Take 2 tablets (40 mg total) by mouth in the morning. predniSONE 20 mg tablet Commonly known as: DELTASONE Take 4 tablets (80 mg total) by mouth daily with breakfast. Continue taking prednisolone until you follow up with Hematology. Please follow up with them MARTINEZ to determine how long you should be prednisolone. This medication is not lifelong and should be tapered off. senna 8.6 mg tablet Commonly known as: SENOKOT Take 1 tablet (8.6 mg total) by mouth in the morning. vitamin B-12 1000 MCG tablet Generic drug: cyanocobalamin Take 1 tablet (1,000 mcg total) by mouth in the morning. * This list has 2 medication(s) that are the same as other medications prescribed for you. Read thedirections carefully, and ask your doctor or other care provider to review them with you. Where to Get Your Medications These medications were sent to [facility] [address] [place] [address] [address] [facility] [phone] [address] [facility] [address] buPROPion XL 150 mg 24 hr tablet >30 minutes were spent on discharging this patient. NIKHIL WOODALL MD 01/16/2025 2:48 PM [facility] 7[facility] (all facilities): Message rounding JERAMY in [place] or page through [facility]. 7PM-7AM ([facility], [facility]): Page Night JERAMY, [phone]. 7PM-7AM ([facility], [place], [place] and [facility] Rehab): Page on-call JERAMY, . documented in this encounter Discharge Instructions * Attachments The following attachments cannot be sent through Care Everywhere. * Weakness (Sinhala) * Stroke ??? Discharge instructions (Sinhala) * Bupropion, ADULT (Sinhala) documented in this encounter Medications at Time of Discharge apixaban (ELIQUIS) 5 mg tablet Take 1 tablet (5 mg total) by mouth in the morning and 1 tablet (5 mg total) before bedtime. 60 tablet 01/01/2025 apixaban (ELIQUIS) 5 mg tablet Take 1 tablet (5 mg total) by mouth in the morning and 1 tablet (5 mg total) before bedtime. 60 tablet 2 01/04/2025 aspirin 81 mg Take 1 tablet (81 mg total) by mouth in the morning. 90 tablet 6 01/05/2025 atorvastatin (LIPITOR) 40 mg tablet Take 1 tablet (40 mg total) by mouth nightly. 90 tablet 3 01/05/2025 buPROPion XL (WELLBUTRIN XL) 150 mg 24 hr tablet Take 1 tablet (150 mg total) by mouth every morning. 30 tablet 01/16/2025 cyanocobalamin (vitamin B-12) 1000 MCG tablet Take 1 tablet (1,000 mcg total) by mouth in the morning. LORazepam (ATIVAN) 0.5 mg tablet Take 1 tablet (0.5 mg total) by mouth in the morning and 1 tablet (0.5 mg total) before bedtime. nystatin (MYCOSTATIN) powder Apply 1 Application topically in the morning and 1 Application before bedtime. 12/25/2024 omeprazole (PriLOSEC) 40 mg capsule Take 1 capsule (40 mg total) by mouth in the morning. pantoprazole (PROTONIX) 20 mg EC tablet Take 2 tablets (40 mg total) by mouth in the morning. predniSONE (DELTASONE) 20 mg tabletIndication s:Thrombocytopen ia Take 4 tablets (80 mg total) by mouth daily with breakfast. Continue taking prednisolone until you follow up with Hematology. Please follow up with them MARTINEZ to determine how long you should be prednisolone. This medication is not lifelong and should be tapered off. 30 tablet 2 01/05/2025 senna (SENOKOT) 8.6 mg tablet Take 1 tablet (8.6 mg total) by mouth in the morning. documented as of this encounter H&P Notes * Nikhil Woodall MD - 01/16/2025 8:57 AM EDT Images from the original note were not included. [facility] INTERNAL MEDICINE [facility] - ACUTE [facility]ARE [address] [facility] [id number] Hospital Medicine History & Physical Patient: Jamey Ceja Date of : 1975 Room: [facility] PCP: DESTIN HUBBARD MD Admission date: 01/15/2025 3:03 PM Encounter date: 01/16/25 Hospital Day: 2 SUBJECTIVE Jamey Ceja is a 49 y.o. female who presents with complaints of left- sided facial droop and slurred speech last known well was 518 at 9:30 p.m. patient's family reports she had a recent stroke they are unsure if she is going to require more assistance at home or possible going to an assisted living at time of discharge due to requiring more help with her activities of daily living. Patient has been 100% compliant with medications including Eliquis. Last stroke was 12/26/2024 Is a known everyday smoker. Blood pressure normotensive in the ER NIH stroke score is a 6 secondaryto left arm falls right leg falls left leg falls articulation and mild dysarthria. Stroke alert wascontacted recommended admitting for MRI. Patient is not a TNK candidate secondary to being out of the time window. Results in the ER include white blood cell count 11.5 hemoglobin 10.4 hematocrit 32.1 platelets 218absolute neutrophils 9.3 INR normal PTT 25 electrolytes normal excluding 190 glucose calcium 8.3 GFR 85 phosphorus is 2.9 troponin initially done x1 negative TSH 0.[address] brain No acute intracranial abnormality, by CT. MRI is more sensitive for evaluation of ischemiaor subtle parenchymal abnormalities. Partially empty sella. CTA head No large vessel occlusion, critical stenosis, or sizable aneurysm. CTA neck Stable normal CTA neck. There is no stenosis in the neck. EKG sinus rhythm PVCs borderline short MS interval consider anterior infarct borderline T abnormalities in the inferior leads Patient to be admitted for stroke workup and possible placement Allergies: Metoclopramide hcl, Sulfa (sulfonamide antibiotics), and Naproxen Prior to Admission medications Medication Sig Start Date End Date Taking? Authorizing Provider apixaban (ELIQUIS) 5 mg tablet Take 1 tablet (5 mg total) by mouth in the morning and 1 tablet (5 mg total) before bedtime. 01/01/25 Yes Itiya Robbie, AGRICULTURAL RESEARCH ENGINEER-AMUSEMENT RIDE INSPECTOR apixaban (ELIQUIS) 5 mg tablet Take 1 tablet (5 mg total) by mouth in the morning and 1 tablet (5 mg total) before bedtime. 01/04/25 Yes Itiya Robbie, AGRICULTURAL RESEARCH ENGINEER-AMUSEMENT RIDE INSPECTOR aspirin 81 mg Take 1 tablet (81 mg total) by mouth in the morning. 01/05/25 Yes Pedro Blanchard MD atorvastatin (LIPITOR) 40 mg tablet Take 1 tablet (40 mg total) by mouth nightly. 01/05/25 Yes Pedro Blanchard MD cyanocobalamin (vitamin B-12) 1000 MCG tablet Take 1 tablet (1,000 mcg total) by mouth in the morning. Yes Not In System Ref Prov LORazepam (ATIVAN) 0.5 mg tablet Take 1 tablet (0.5 mg total) by mouth in the morning and 1 tablet (0.5 mg total) before bedtime. Yes Not In System Ref Prov nystatin (MYCOSTATIN) powder Apply 1 Application topically in the morning and 1 Application before bedtime. 12/25/24 Yes Not In System Ref Prov omeprazole (PriLOSEC) 40 mg capsule Take 1 capsule (40 mg total) by mouth in the morning. Yes Not In System Ref Prov pantoprazole (PROTONIX) 20 mg EC tablet Take 2 tablets (40 mg total) by mouth in the morning. Yes Not In System Ref Prov predniSONE (DELTASONE) 20 mg tablet Take 4 tablets (80 mg total) by mouth daily with breakfast. Continue taking prednisolone until you follow up with Hematology. Please follow up with them MARTINEZ to determine how long you should be prednisolone. This medication is not lifelong and should be tapered off. 01/05/25 Yes Pedro Blanchard MD senna (SENOKOT) 8.6 mg tablet Take 1 tablet (8.6 mg total) by mouth in the morning. 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 Past Surgical History: Patient has a past surgical history that includes Appendectomy; Cholecystectomy; Hysterectomy; section; Tonsillectomy; Oophorectomy; Colonoscopy (N/A, 03/13/2024); and Thrombectomy (N/A, 12/26/2024). Family History: Patient's family history includes Migraines in her mother; No Known Problems in her father. Social History: Patient reports that she has been smoking cigarettes. She has a 20 pack-year smoking history. She has never used smokeless tobacco. She reports current alcohol use. She reports that she does not use drugs. Review of Systems Review of Systems Constitutional: Negative for activity change, appetite change, chills, diaphoresis, fatigue and fever. HENT: Negative for tinnitus and trouble swallowing. Respiratory: Negative for cough, chest tightness, shortness of breath and wheezing. Cardiovascular: Negative for chest pain, palpitations and leg swelling. Gastrointestinal: Negative for abdominal pain, diarrhea, nausea and vomiting. Genitourinary: Negative for difficulty urinating. Musculoskeletal: Negative for gait problem. Skin: Negative for rash. Neurological: Positive for facial asymmetry, speech difficulty and weakness. Negative for dizziness, syncope, light-headedness, numbness and headaches. Psychiatric/Behavioral: Negative for sleep disturbance. OBJECTIVE BP 112/71 Pulse 80 Temp 36.9 ??C (98.4 ??F) (Oral) Resp 17 Ht 154.9 cm (5' 1 ) Wt 104 kg (229 lb 4.8 oz) SpO2 99% BMI 43.33 kg/m?? Temp: [36.6 ??C (97.8 ??F)-36.9 ??C (98.4 ??F)] 36.9 ??C (98.4 ??F) Pulse: [64-88] 80 Resp: [14-20] 17 BP: (112-137)/(71-95) 112/71 SpO2: [97 %-100 %] 99 % O2 Device: None (Room air) Intake/Output Summary (Last 24 hours) at 01/16/2025 1140 Last data filed at 01/16/2025 0917 Gross per 24 hour Intake 910 ml Output 350 ml Net 560 ml Physical Exam Physical Exam Vitals and nursing note reviewed. Constitutional: General: She is not in acute distress. HENT: Head: Normocephalic and atraumatic. Right Ear: External ear normal. Left Ear: External ear normal. Nose: Nose normal. Mouth/Throat: Mouth: Mucous membranes are moist. Pharynx: Oropharynx is clear. Eyes: Extraocular Movements: Extraocular movements intact. Conjunctiva/sclera: Conjunctivae normal. Pupils: Pupils are equal, round, and reactive to light. Neck: Vascular: No carotid bruit or JVD. Cardiovascular: Rate and Rhythm: Normal rate and regular rhythm. Pulses: Normal pulses. Pulmonary: Effort: Pulmonary effort is normal. Breath sounds: Normal breath sounds. Abdominal: General: Bowel sounds are normal. There is no distension. Palpations: Abdomen is soft. Tenderness: There is no abdominal tenderness. Musculoskeletal: Right lower leg: No edema. Left lower leg: No edema. Lymphadenopathy: Cervical: No cervical adenopathy. Skin: General: Skin is warm and dry. Capillary Refill: Capillary refill takes less than 2 seconds. Neurological: General: No focal deficit present. Mental Status: She is alert and oriented to person, place, and time. Motor: Weakness (Baseline generalized) present. Psychiatric: Mood and Affect: Mood normal. Behavior: Behavior normal. Thought Content: Thought content normal. Judgment: Judgment normal. Medications Scheduled: apixaban, 5 mg, oral, BID aspirin, 81 mg, oral, Daily atorvastatin, 40 mg, oral, Nightly famotidine, 20 mg, oral, Q12H insulin lispro, 2-8 Units, subcutaneous, Nightly Infusions: As Needed: acetaminophen alum-mag hydroxide-simeth dextrose dextrose 50 % in water (D50W) glucagon (human recombinant) magnesium sulfate magnesium sulfate ondansetron ODT potassium chloride OR potassium chloride OR potassium chloride IV (Adult) sennosides-docusate sodium sodium phosphate IV OR sodium phosphate IV - central line OR sod phos di, mono-K phos mono sodium chloride sodium chloride Allergies: Metoclopramide hcl, Sulfa (sulfonamide antibiotics), and Naproxen Labs Recent Results (from the past 24 hours) Bedside Glucose *Place/Obtain serum glucose if >500 per glucometer. Collection Time: 01/15/25 3:06 PM Result Value Ref Range Bedside Glucose (POC) 174 (H) 65 - 99 mg/dL Troponin I, High Sensitivity Collection Time: 01/15/25 3:20 PM Narrative The following orders were created for panel order Troponin I, High Sensitivity. Procedure Abnormality Status --------- ------ Troponin I, High Sensiti...[[id number]] Normal Final result Troponin I, High Sensiti...[[id number]] Please view results for these tests on the individual orders. Basic Metabolic Panel Collection Time: 01/15/25 3:20 PM Result Value Ref Range SODIUM 135 134 - 146 mmol/L POTASSIUM 4.3 3.5 - 5.0 mmol/L CHLORIDE 101 98 - 109 mmol/L CARBON DIOXIDE 25 22 - 32 mmol/L ANION GAP 9 5 - 15 mmol/L BLOOD UREA NITROGEN 19 5 - 23 mg/dL CREATININE 0.85 0.40 - 1.00 mg/dL GLUCOSE 190 (H) 65 - 99 mg/dL CALCIUM 8.3 (L) 8.5 - 10.5 mg/dL EGFR Non-Race Dependent 85 >=60 ml/min/1.73sq.m Protime & INR Collection Time: 01/15/25 3:20 PM Result Value Ref Range PROTIME 12.2 9.8 - 13.2 sec INR 1.1 0.9 - 1.2 APTT Collection Time: 01/15/25 3:20 PM Result Value Ref Range APTT 25 (L) 26 - 37 sec CBC auto differential Collection Time: 01/15/25 3:20 PM Result Value Ref Range WBC 11.5 (H) 4 - 11 x10E9/L RBC Count 3.48 (L) 3.8 - 5.2 X10E12/L Hemoglobin 10.4 (L) 11.7 - 15.5 g/dL Hematocrit 32.1 (L) 35 - 47 % MCV 92 80 - 100 fL MCH 29.8 27 - 34 pg MCHC 32.3 32 - 36 g/dL RDW 20.0 (H) 11.5 - 15 % Platelet Count 218 150 - 450 X10E9/L MPV 7.4 7 - 12 fL Myelocyte 1 % % Bands Neutrophils 3 % Neutrophils Relatives 77 % Lymphocytes Relative 15 % Monocytes Relative 1 % Eosinophils Relative 1 % Atypical Lymphocytes Relative 2 % nRBC 1 Neutrophils Absolute (M) 9.3 (H) 1.5 - 6.6 10*3/uL Lymphocytes Absolute 1.9 1.0 - 3.5 10*3/uL Monocytes Absolute 0.1 0.0 - 0.9 10*3/uL Eosinophils Absolute 0.1 0.0 - 0.4 10*3/uL Hypochromia 1+ Polychromasia 1+ Dacryocytes 1+ Differential Type MANUAL DIFFERENTIAL Troponin I, High Sensitivity 0 Hour Collection Time: 01/15/25 3:20 PM Result Value Ref Range TROPONIN I, HIGH SENSITIVITY 9 <16 ng/L Thyroid profile includes TSH FT4 Collection Time: 01/15/25 3:20 PM Result Value Ref Range FREE T4 0.89 0.61 - 1.60 ng/dL TSH 0.46 (L) 0.49 - 4.67 uIU/mL Phosphorus Collection Time: 01/15/25 3:20 PM Result Value Ref Range PHOSPHORUS 2.9 2.4 - 4.9 mg/dL Bedside Glucose *Place/Obtain serum glucose if >500 per glucometer. Collection Time: 01/15/25 9:55 PM Result Value Ref Range Bedside Glucose (POC) 225 (H) 65 - 99 mg/dL Comprehensive metabolic panel Collection Time: 01/16/25 4:28 AM Result Value Ref Range SODIUM 137 134 - 146 mmol/L POTASSIUM 3.5 3.5 - 5.0 mmol/L CHLORIDE 102 98 - 109 mmol/L CARBON DIOXIDE 23 22 - 32 mmol/L ANION GAP 12 5 - 15 mmol/L BLOOD UREA NITROGEN 18 5 - 23 mg/dL CREATININE 0.93 0.40 - 1.00 mg/dL GLUCOSE 140 (H) 65 - 99 mg/dL CALCIUM 9.0 8.5 - 10.5 mg/dL TOTAL PROTEIN 5.7 (L) 6.0 - 8.0 g/dL ALBUMIN 3.2 3.2 - 5.3 g/dL ALKALINE PHOSPHATASE 65 39 - 130 U/L AST 17 <=41 U/L ALT 39 (H) <=31 U/L BILIRUBIN,TOTAL 0.6 0.3 - 1.2 mg/dL EGFR Non-Race Dependent 76 >=60 ml/min/1.73sq.m Magnesium Collection Time: 01/16/25 4:28 AM Result Value Ref Range MAGNESIUM 1.7 (L) 1.8 - 2.6 mg/dL CBC auto differential Collection Time: 01/16/25 4:28 AM Result Value Ref Range WBC 14.0 (H) 4 - 11 x10E9/L RBC Count 3.30 (L) 3.8 - 5.2 X10E12/L Hemoglobin 10.1 (L) 11.7 - 15.5 g/dL Hematocrit 30.8 (L) 35 - 47 % MCV 93 80 - 100 fL MCH 30.5 27 - 34 pg MCHC 32.7 32 - 36 g/dL RDW 20.2 (H) 11.5 - 15 % Platelet Count 204 150 - 450 X10E9/L MPV 7.9 7 - 12 fL Myelocyte 1 % % Bands Neutrophils 1 % Neutrophils Relatives 70 % Lymphocytes Relative 23 % Monocytes Relative 5 % nRBC 1 Neutrophils Absolute (M) 10.0 (H) 1.5 - 6.6 10*3/uL Lymphocytes Absolute 3.2 1.0 - 3.5 10*3/uL Monocytes Absolute 0.7 0.0 - 0.9 10*3/uL RBC Morphology Reviewed Differential Type MANUAL DIFFERENTIAL Lipid profile Collection Time: 01/16/25 4:28 AM Result Value Ref Range CHOLESTEROL 170 150 - 200 mg/dL TRIGLYCERIDE 97 27 - 150 mg/dL HDL CHOLESTEROL 71 >39 mg/dL LDL (CALC) 80 <130 mg/dL CHOLESTEROL:HDL 2.4 1.0 - 5.0 VERY LOW LIPOPROTEIN 19 0 - 30 mg/dL Hemoglobin A1c Collection Time: 01/16/25 4:28 AM Result Value Ref Range HEMOGLOBIN A1C 5.6 4.4 - 5.6 % EST. AVERAGE GLUCOSE 114 mg/dL Extra Tubes Collection Time: 01/16/25 4:28 AM Narrative The following orders were created for panel order Extra Tubes. Procedure Abnormality Status --------- ------ Light Blue Top[[id number]] Final result Please view results for these tests on the individual orders. Light Blue Top Collection Time: 01/16/25 4:28 AM Result Value Ref Range Extra Tube Auto Resulted Procalcitonin Collection Time: 01/16/25 4:28 AM Result Value Ref Range PROCALCITONIN 0.06 (H) <0.05 ng/mL Narrative <0.50 ng/mL - Low risk of severe sepsis and/or septic shock. <2.00 ng/mL - Recommend retesting within 6-24 hours. >2.00 ng/mL - High risk of sepsis and/or septic shock. Radiology CT angiogram head Result Date: 01/15/2025 Narrative: EXAM:CT CTA HEAD INDICATION: Left-sided facial droop COMPARISON: 12/26/2024 TECHNIQUE/PROTOCOL: CT angiogram of the head was performed following intravenous administration of 100 cc Omnipaque 350 nonionic intravenous contrast. 3-D maximum intensity projection images generated and reviewedunder concurrent physician supervision. Automated exposure control was utilized. Arterial blood flow was measured to assist the stroke clinical team in the diagnosis of large vessel occlusion in patients undergoing screening for acute ischemic stroke using Rapid AI software when clinically indicated. FINDINGS: Intracranial Intracranial ICAs: Normal bilaterally. MCAs: Patent bilaterally with symmetric distal arborization. ACAs: Normal bilaterally. AComm: Normal P- Comms and deliverer food: deliverer food are patent bilaterally. Posterior communicating arteries are not well visualized. Vertebral arteries: Normal tothe confluence with the basilar artery. Basilar artery: Normal. IMPRESSION: No large vessel occlusion, critical stenosis, or sizable aneurysm. Finalized by Rad Morales on 01/15/2025 4:[address] angiogram carotid Result Date: 01/15/2025 Narrative: CT ANGIOGRAM OF THE NECK CLINICAL INFORMATION: stroke like symptoms. TECHNIQUE: CT angiogram performed following intravenous administration of nonionic intravenous contrast. Coronal and sagittal and 3-D volume rendered maximum intensity projection images generated and reviewed under concurrent physician supervision. Automated exposure control utilized. The [place] Symptomatic Carotid Endarterectomy Trial (NASCET) method for calculating the degree of stenosis was utilized for stenosis measurements. COMPARISON: 12/26/2024 FINDINGS: There is a standard aortic arch configuration.There is no significant stenosis at the arch origins of the vessels. The visualized portions of the subclavian arteries are unremarkable. The common carotid arteries are well opacified without evidence for significant stenosis. The right carotid bifurcation is unremarkable with a widely patent origin of the internal carotid artery. The left carotid bifurcation is unremarkable with a widely patentorigin of the internal carotid artery. The internal carotid arteries are symmetric and well opacified throughout their cervical courses. The vertebral arteries are symmetric. The vertebral arteries are well opacified throughout their cervical courses and join to form a normal diameter basilar artery. IMPRESSION: Stable normal CTA neck. There is no stenosis in the neck. All CT scans at this facility use dose modulation, iterative reconstruction, and/or weight based dosing when appropriate to reduce radiation dose to as low as reasonably achievable. Finalized by Leonard Quinn MD on 01/15/2025 4:[address] brain without contrast stroke alert Result Date: 01/15/2025 Narrative: STUDY: CT BRAIN WO CONT STROKE ALERT INDICATION: Stroke, follow up; assessment of stroke/hemorrhage:. TECHNIQUE: * CT head was performed without intravenous contrast using the standard protocol. Automated exposure control was utilized. * All CT scans at this facility use dose modulation,iterative reconstruction, and/or weight based dosing when appropriate to reduce radiation dose to as low as reasonably achievable. FINDINGS: No evidence of acute intracranial hemorrhage, territorial infarct, mass effect, midline shift, or extra-axial fluid collection. Ventricles, sulci and cistern are unremarkable. Brain volume is age appropriate. Partially empty sella. Orbits and globes appear unremarkable. Soft tissues are unremarkable. Opacification of the left anterior ethmoid air cell. Mastoid air cells are broadly clear. No evidence of aggressive osseous lesion. IMPRESSION: * No acute intracranial abnormality, by CT. MRI is more sensitive for evaluation of ischemia or subtle parenchymal abnormalities. * Partially empty sella. Finalized by Dillon Escobar on 01/15/2025 3:31 PM Vas venous duplex lwr single right Result Date: 01/04/2025 Narrative: Previous: Previous lower extremity venous duplex exam performed 12/29/2024: RIGHT: ACUTE femoral deep vein thrombosis (DVT). Right: Partially compressible common femoral with Isoechoic intraluminal content and spontaneous, phasic spectral Doppler signals. Remaining visualized deep venous segments are compressible with spontaneous phasic spectral Doppler waveforms. Superficial veins are compressible. Left: Common femoral vein is compressible with spontaneous phasic / spectral Doppler waveforms. Conclusions: RIGHT:Common femoral deep vein thrombosis (DVT), UNDETERMINED AGE.NO EVIDENCE of superficial vein thrombosis of the lower extremity.LEFT:NO EVIDENCE of deep vein thrombosis (DVT)of the common femoral vein. Comparison is made to previous lower extremity venous duplex examination dated December 29, 2024 (RIGHT: ACUTE femoral deep vein thrombosis (DVT)). The acute right common femoral DVT has evolved into a more chronic process. No new thrombotic material was identified. Recommendations: Any questions prior to finalization, please call the reading physician during normal businesshours at the phone number beside their name. Vas venous duplex lwr bilateral Result Date: 12/31/2024 Narrative: Right: Dilated, partially compressible common femoral with hypoechoic intraluminal content and spontaneous, phasic spectral Doppler signals. Remaining visualized deep venous segments are compressible with spontaneous phasic spectral Doppler waveforms. Superficial veins are compressible. Left: Lower extremity deep veins are compressible with spontaneous phasic spectral Doppler waveforms; superficial veins are compressible without intraluminal content. Conclusions: RIGHT:ACUTE femoral deep vein thrombosis (DVT). NO EVIDENCE of superficial vein thrombosis of the lower extremity. LEFT:NO EVIDENCE of deep or superficial vein thrombosis of the lower extremity. Recommendations: Any questions prior to finalization, please call the reading physician during normal business hours at the phone number beside their name. IR CICV non tunneled more than 5 years Result Date: 12/30/2024 Narrative: CENTRAL VENOUS CATHETER PLACEMENT WITH ULTRASOUND GUIDANCE DATE: 12/30/2024 2:36 PM INDICATION: Urgent plasmapheresis ATTENDING: Pedro Rivera MD SEDATION: 50 mcg of fentanyl was given for pain control. Lidocaine 1% was given for local anesthesia. RADIATION DOSE: Automatic radiation exposure lowering techniques were utilized. All elements of maximal sterile barrier techniques followed including: cap and mask and sterile gown and sterile gloves and a large sterile sheet and hand hygiene and 2% chlorhexidine for cutaneous antisepsis. The total fluoroscopic time used during the procedure was 0.4 min, a total of 1 fluoroscopic spot images were obtained and saved in PACS , and the r eference air kerma was 3.74 mGy. PROCEDURE: The procedure, risks, including technical failure, bleeding, infection, vessel injury, arrhythmia, loss of limb, and , and alternatives, were discussed with the patient and all questions were answered. Written informed consent obtained. Accompanying paperwork was verified for accuracy. Directed history and physical exam performed prior to the procedure. Medication reconciliation performed by nursing personnel. Procedure was performed using a cap,sterile gown, sterile gloves, a large sterile sheet, hand hygiene and 2% chlorhexidine for cutaneous antisepsis. The patient was positioned supine on the table and prepped and draped in usual sterilefashion. A critical pause was performed with assisting personnel just prior to the procedure with the patient's identity confirmed using 2 identifiers, confirming site and side. Ultrasound was used to demonstrate a patent right internal jugular vein and appropriate directional flow, with an image saved in the permanent medical record. 1% lidocaine with epinephrine was used for local anesthesia. Asmall skin incision was made with blunt dissection into the subcutaneous tissues. The vein was thenpunctured under real-time sonographic guidance. A wire was advanced in to the IVC. The tract was then upsized to accommodate a 15 cm trialysis catheter with tip terminating at the cavoatrial junction. Catheter was secured in place with suture. Catheter function was tested, and all lumens were foundto function well. Lumens of the catheter were flushed with anticoagulant. The patient tolerated theprocedure well with no immediate complication IMPRESSION: Successful image guided placement of a tri alysis catheter via the right internal jugular vein with the catheter tip terminating at the cavoatrial junction. The catheter is available for immediate use. Finalized by Pedro Rivera MD on 12/30/2024 2:37 PM Echo complete W/O contrast Result Date: 12/28/2024 Narrative: Left Ventricle: Left ventricle appears normal in size. Systolic function is normal with an ejection fraction of 55-60%. Left Atrium: Left atrium is normal in size. Agitated saline bubble study revealed no evidence of right to left interatrial shunting . Right Ventricle: Right ventricularsize appears normal. The right ventricular basal diameter is 31.0 mm. Systolic function is normal. Aortic Valve: The aortic valve is trileaflet. There is trace regurgitation. There is no evidence of aortic valve stenosis. Ultrasound abdomen limited Result Date: 12/28/2024 Narrative: US ABDOMEN LMTD HISTORY: Thrombocytopenia COMPARISON: None TECHNIQUE: Multiple real-timegrayscale images were obtained in transverse and sagittal projections. Color Doppler was used. FINDINGS: Diffusely increased hepatic echogenicity compatible with hepatocellular disease. Although nonspecific, this is most likely secondary to steatosis. Within these limits, no focal hepatic lesion demonstrated. No intrahepatic biliary dilatation. The common bile duct is not dilated and measures 0.5cm. Main portal vein is patent with appropriate direction of flow and peak velocity of 28.1 cm/s. The gallbladder is surgically absent. Visualized portions of the pancreatic head and body are unremarkable. Included images of the spleen demonstrate normal echotexture. The spleen is normal in size measuring 8.7 cm in length. IMPRESSION: * Hepatic steatosis. * Otherwise unremarkable limited abdominal ultrasound. Approved by Carlo Epps DO on 12/28/2024 7:32 AM Prince Mireles DO have personally reviewed the image(s) and agree with and/or edited the report Finalized by Prince Orozco DO on 12/28/2024 7:56 AM MR brain without contrast Result Date: 12/28/2024 Narrative: STUDY: MRI brain without contrast CLINICAL HISTORY: Stroke. Thrombectomy December 26, 2024 COMPARISON:May 21, 2013 Procedure: Multiplanar, multisequence imaging performed through the brain, without IV contrast. Findings: There are no intracranial masses, mass-effect, extra-axial fluidcollection, or hydrocephalus. Sensitivity for acute hemorrhage limited on MRI, but grossly no acutehemorrhage identified. Midline sagittal structures are negative including pituitary fossa, infundibulum, optic chiasm, corpus callosum, brainstem, fourth ventricle, cerebellum, and cranio-cervical junction. There are appropriate flow voids in large cerebral vessels on T2 weighted imaging. Punctate restricted diffusion within the right occipital lobe suggests a acute lacunar infarct axial image 31series 8. Similar lacunar infarct left insular cortex axial image 37 IMPRESSION: * Acute lacunar infarcts left insular cortex and right occipital lobe suggesting embolic phenomenon. No other acute findings. * Note is again made an empty sella morphology which can be physiologic but can also be seenwith idiopathic intracranial hypertension and best assessed in combination with other clinical dataWorkstation:[id number] Finalized by Juanpablo Scanlon MD on 12/28/2024 5:59 AM Neuro Invasiv Result Date: 12/27/2024 Narrative: Jamey Ceja is 49 y.o. who was transferred to [facility] with acute onsetleft hemispheric stroke symptoms. Noncontrast head CT scan was unrevealing for acute findings. On arrival NIH stroke scale score was 10. ASPECT score was 10. CT angiogram showed concern for distal left MCA M1 occlusion. Given the patient's profound symptoms and relative sparing of the cortical regions we felt that the patient may still benefit from mechanical thrombectomy. The risks, alternates and benefits of the procedure were discussed with the patient's family. Up to 5-8 percent risk of complication including but not limited to failure, arterial injury, stroke, intercerebral hemorrhage, co ntrast nephropathy, groin complication and/or was quoted. Consent was obtained. Procedure: Jamey Ceja was identified and brought to the neuro IR suite. Patient was placed supine on the angio table. Bilateral groins were shaved, prepped and the patient was draped in the usual sterile manner. Using modified Seldinger technique a 6 [place] sheath was advanced in the right common femoral artery. Through this sheath we now advanced a 5 [place] Seymour 2 catheter over an 035 wire into the left subclavian artery. Selective catheterization angiography of the left common carotid, left internal carotid and right common femoral arteries were performed. Angiographic runs from the left common carotid artery showed intracranial left MCA M1 occlusion in its distal course. At this stage, an exchange length wire was advanced in the left internal carotid artery. The diagnostic catheter andthe short groin sheath was exchanged for a 6 [place] 90 cm NeuronMax sheath which was advanced into the distal cervical segment of the left internal carotid artery. Through this sheath we now advanceda triaxial assembly of Dory 6 [place] mid size catheter over a velocity microcatheter and a microwire into the supraclinoid segment of the left internal carotid artery. While maintaining a broad J at the tip of the microwire, the microcatheter was advanced to the site of occlusion. At this stage the mid size catheter was advanced over the micro wire micro catheter into the distal leftMCA M1 segment at the site of occlusion. Microwire & microcatheter were retrieved. Pump aspiration was performed. Small clot was retrieved. Follow-up angiographic run from the guide sheath showedthat the guide now in the external carotid artery. At this point, NeuroMax was pulled down into theleft common carotid artery. Under roadmap, Dory 6 [place] was advanced over synchro microwire intothe distal cervical ICA. Follow-up angiographic run from the Madeline catheter showed recanalization of the left middle cerebral artery. With pump aspiration, the Madeline 6 [place] was retrieved and then we did angiographic mckinney from the guide sheath which showed severe vasospasm involving the mid cervical ICA and unfortunately we occlusion of the distal left MCA M1 segment. Now using same triaxial system composed of Dory 6 [place] mid size catheter over a velocity microcatheter and a syncro 014 microwire into the supraclinoid segment of the left internal carotid artery. While maintaining a broad J at the tip of the microwire, the microcatheter was advanced to the site of occlusion. Dory 6F catheter was advanced over the micro wire micro catheter into the distal left MCA M1 segment at the site of occlusion. Micro wire micro catheter were retrieved. Pump aspiration was performed. After the 2nd pass, angiographic runs now show complete recanalization of the left MCA and its distal branches. Recanalization is graded as TICI 3. Now Dory 6F was readvanced into the proximal cervical segment of the left ICA. 10 mg of verapamil was slowly infused. Follow-up angiographic run showed markedly improved flow through the left internal carotid artery. At this stage we decided to conclude the procedure. Sheath was removed. Groin was closed using Angio- Seal device. Findings: Left Common Carotid Artery Angiogram: The left common carotid artery angiogram shows normal opacification of the leftcommon carotid artery up to the level of its bifurcation. The left common carotid artery at its bifurcation shows mild atherosclerotic changes. The left external carotid artery is identified. The left external carotid artery fills well with normal supply to head and face. The left internal carotid artery fills well through its cervical, horizontal and ascending petrous, cavernous and supraclinoidsegments. In its supraclinoid course the left ophthalmic artery is identified. Abrupt truncation ofthe left MCA M1 segment in its distal segment noted. The left anterior cerebral artery and its distal branches fill well. In mid to late arterial phase terminal left DAVE division branches are fillingthe left MCA territory in a retrograde fashion. Left internal carotid artery angiogram prior to aspiration thrombectomy showed the above to better advantage. Left internal carotid artery angiogram post thrombectomy and intra-arterial verapamil infusion for ICA vasospasm now show that the left MCA M1 segment as completely recanalized. Distal left MCA division branches are filling well. No abrupt ve ssel cut off noted. No intracranial aneurysms noted. Additionally there is markedly improved flow through the left ICA. Right Common Femoral Artery Angiogram: The right common femoral artery angiogram shows normal opacification of the right common femoral artery and its branches with normal runoff to the distal extremity. Impression:Jamey Ceja underwent diagnostic cerebral angiography and aspiration thrombectomy for an acute left MCA M1 occlusion. At the end of the procedure successful TICI 3 recanalization was achieved. Of note, patient received 10 mg of intra-arterial verapamil for severe midcervical left ICA segment vasospasm. Groin puncture time was 1636. First pass was made at 1648 and recanalization was at 1705. Total number of passes were 2. SBP goal <[address] brain without contrast Result Date: 12/27/2024 Narrative: STUDY: CT HEAD WITHOUT CONTRAST CLINICAL HISTORY: Transient altered level of consciousness. COMPARISON: None. TECHNIQUE: CT head was performed without contrast utilizing axial reconstruction with images reviewed in bone and brain windows. Automated exposure control was utilized. FINDINGS: Large amount of motion artifact. No acute hemorrhage edema nor mass effect. Decreased attenuation in the left MCA distributions basal ganglia consistent with known areas of nonhemorrhagic ischemia. Ventricles and cisterns are stable. Chronic inflammation of the ethmoids. IMPRESSION: * Nonhemorrhagic ischemia left basal ganglia as best seen on recent CT perfusion. No significant mass effect or mid line shift at this point. All CT scans at this facility use dose modulation, iterative reconstruction, and/or weight based dosing when appropriate to reduce radiation dose to as low as reasonably achievable. Finalized by Mando Hicks MD on 12/27/2024 7:[address] brain without contrast Result Date: 12/26/2024 Narrative: CT BRAIN WO CONT CLINICAL HISTORY: Stroke COMPARISON: 12/26/2024 No contrast obtained. Contrast is present from recent contrast enhanced CTA's. FINDINGS: There may be some subtle decreased density identified primarily within the left basal ganglia with decreased differentiation of the lentiform nucleus. At this time the cortex is not affected and wilson-white differentiation of the cortexremains intact. No evidence of intracranial hemorrhage. The patient does have evidence of a large penumbra consistent with ischemia in the left MCA distribution on a recent perfusion scan. No mass effect or midline shift skull and paranasal sinuses unremarkable. IMPRESSION: * There may be some subtle decreased density identified primarily within the left basal ganglia with decreased differentiation of the lentiform nucleus. At this time the cortex is not affected and wilson-white differentiation of the cortex remains intact. * No evidence of intracranial hemorrhage. * The patient does have evidence of a large penumbra consistent with ischemia in the left MCA distribution on a recent perfusionscan * All CT scans at this facility use dose modulation, iterative reconstruction, and/or weight based dosing when appropriate to reduce radiation dose to as low as reasonably achievable Finalized by Hi Streeter MD on 12/26/2024 5:[address] cerebral perfusion analysis Result Date: 12/26/2024 Narrative: CT BRAIN PERFUSION IMAGING: HISTORY: strke TECHNIQUE: Axial CT brain perfusion was performed during intravenous administration of 40 mL Omnipaque 350. Postprocessing with RAPID and/or CallsFreeCallso Via software was used. Specifically, maps of cerebral blood flow, cerebral blood volume, mean transit time and Tmax were calculated by using the perfusion source data. COMPARISON: CT brain same date. Image quality: Sufficient Arterial input function GEMA selected: Proximal left MCA Venous outflow function GEMA: [place] of sinuses FINDINGS: CT Perfusion Characteristics: CBF<30% volume: 0 mL. Tmax>6.0s volume: 141 mL Mismatch volume: 141 mL Mismatch ratio: Infiltrate Tmax>4.0s volume: 185 Comment: Scattered foci of low density in the right frontal, left parietal and basal ganglia distribution. IMPRESSION: * Findings compatible with known left MCA disease with parameters suggesting large penumbra. Note: Perfusion-CT was required in this patient because it: - assesses brain perfusion, - allows to screen for brain ischemia even before morphological damage can be seen, - can confirm or rule out the presence of a large, hemispheric, ischemic stroke and/or look at the presence of at risk tissue. All CT scans at this facility use dose modulation, iterative reconstruction, and/or weight based dosing when appropriate to reduce radiation dose to as low as reasonably achievable. Work station:[id number] Finalized by Prince Orozco DO on 12/26/2024 4:42 PM X-ray chest 1 view stroke Result Date: 12/26/2024 Narrative: History: Mental status changes Procedure: Chest AP portable upright Comparison: 10/03/2013Findings: The heart and lungs show no acute findings, and the mediastinum and darin are grossly negative . No pneumothorax. Impression: No acute pulmonary process. Finalized by Esteban Schulz MD on 12/26/2024 2:[address] angiogram head Result Date: 12/26/2024 Narrative: CLINICAL INFORMATION: stroke alert TECHNIQUE: CT angiogram of the head was performed following intravenous administration of nonionic intravenous contrast. 3-D maximum intensity projectionimages generated and reviewed under concurrent physician supervision. Automated exposure control was utilized. Arterial blood flow was measured to assist the stroke clinical team in the diagnosis of large vessel occlusion in patients undergoing screening for acute ischemic stroke using Rapid AI software when clinically indicated. All CT scans at this facility use dose modulation, iterative reconstruction, and/or weight based dosing when appropriate to reduce radiation dose to as low as reasonably achievable. COMPARISON: No relevant prior studies available. FINDINGS: The internal carotid arteries are patent throughout their course in the carotid canal and cavernous segment. There is abrupt occlusion of the distal left M1 segment. The right middle cerebral artery is patent. The anterior cerebral arteries are patent bilaterally. The V4 segment of the vertebral arteries is patent, the posterior cerebral arteries are patent bilaterally without flow- limiting stenosis or occlusion. Dural venous sinuses are grossly patent. IMPRESSION: * Abrupt occlusion of the distal left M1 segment of the middle cerebral artery. The remainder of the major arterial vessels the head are patent. Neurointerventional consultation is recommended. The critical results of this examination were communicated directly with Dr. Celaya on 12/26/2024 at 2:47 PM Finalized by Pedro Rivera MD on 12/26/2024 2:[address] angiogram carotid Result Date: 12/26/2024 Narrative: CLINICAL INFORMATION: stroke alert TECHNIQUE: CT angiogram performed following intravenous administration of nonionic intravenous contrast. Coronal and sagittal and 3-D volume rendered maximum intensity projection images generated and reviewed under concurrent physician supervision. Automated exposure control utilized. The [place] Symptomatic Carotid Endarterectomy Trial (NASCET) method for calculating the degree of stenosis was utilized for stenosis measurements. All CT scansat this facility use dose modulation, iterative reconstruction, and/or weight based dosing when appropriate to reduce radiation dose to as low as reasonably achievable. COMPARISON: No relevant prior studies available. FINDINGS: Visualized lung apices are clear. The thyroid is unremarkable. The vessels are patent at their origins, the common carotid arteries are patent throughout their course in the neck, the carotid bulbs are patent bilaterally. The internal carotid arteries are patent throughout their course in the neck without flow-limiting stenosis or occlusion. The origin of the vertebralarteries is patent bilaterally, the vertebral arteries are patent throughout their course in the neck without flow-limiting stenosis or occlusion. Multiple nodules within the parotid glands bilaterally of undetermined clinical significance. IMPRESSION: * No major arterial flow-limiting stenosis or o cclusion within the neck. * Multiple nodules within the parotid glands bilaterally of undetermined clinical significance, findings can relate to intraparotid lymph nodes or other primary salivary gland tumors, recommend dedicated evaluation with ultrasound. Finalized by Franki Rivera MD on 12/26/2024 2:[address] brain without contrast stroke alert Result Date: 12/26/2024 Narrative: CT BRAIN WO CONT STROKE ALERT INDICATION: Stroke. TECHNIQUE: CT of the head without intravenous contrast. Reviewed in brain, bone, and soft tissue windows. COMPARISON: CT 07/03/2013. FINDINGS: No intracranial hemorrhage. No territorial loss of wilson-white differentiation. The ventricular system is normal in size and morphology. No extra-axial fluid collections or shift of midline structures. Patent basal cisterns. No depressed or displaced calvarial fracture. IMPRESSION: 1. No acute intracranial abnormality. 2. MRI would better assess for occult abnormalities such as acute ischemia. All CT scans at this facility use dose modulation, iterative reconstruction, and/or weight based dosing when appropriate to reduce radiation dose to as low as reasonably achievable. 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[facility]) Weakness History of thrombectomy History of stroke Leukocytosis Hypomagnesemia Acute deep vein thrombosis (DVT) of femoral vein of right lower extremity ([facility]) ASSESSMENT & PLAN Stroke-like symptoms left-sided facial droop and weakness History of recent stroke on December 26 for aphasia and right-sided weakness patient was given TNK at [facility] and was transferred to [facility] for mechanical thrombectomy -patient had thrombectomy Left MCA distal M1 occlusion s/p TNK and TICI3 recanalization (12/26/2024) -stroke team following. Okay for discharge as no new stroke. -MRI brain does not show any new acute stroke. -PT, OT, speech therapy to follow -had recent A1c 5.3 & lipids cholesterol 156 HDL 36 LDL 95 triglycerides 123 -had recent echo Left Ventricle: Left ventricle appears normal in size. Systolic function is normalwith an ejection fraction of 55-60%. Left Atrium: Left atrium is normal in size. Agitated saline bubble study revealed no evidence of right to left interatrial shunting . Right Ventricle: Right ventricular size appears normal. The right ventricular basal diameter is 31.0 mm. Systolic function is normal. Aortic Valve: The aortic valve is trileaflet. There is trace regurgitation. There is no evidence of aortic valve stenosis. -continue aspirin and statin Leukocytosis -check urinalysis and chest x-ray -add procalcitonin: Negative at 0.06 -white blood cell count trending up 14 today Hypomagnesemia -supplement and replace Femoral acute DVT (12/2024) -vascular seen on 01/01 discussed thrombectomy versus IVC filter -vascular recommend anticoagulation for 3-6 months for provoked DVT -venous duplex was to be repeated 01/04/2025 and follows with vascular Medicine outpatient -continue on Eliquis History of TTP (05/12) -seen Hematology while at [facility] -received plasmapheresis () for TTP while at [facility] in early December -+ last flare-up was 2013 where she was treated with 4 cycles of rituximab hematology seen while [facility] planning to start weekly rituximab x4 after plasmapheresis treatment was completed -hematology did clear patient to be on anticoagulation as long as platelet count is 40 and above -did not require an IVC filter placement at this time was on a heparin drip for a short time at [facility] until transitioned over to DOAC -add iron/tibc, ferritin -normal platelet count as of now Clinical concern for sepsis, no-not clinically evident at this time. Chart reviewed. Admission orders placed. Home medications reconciled. DVT/VTE prophylaxis: SCD and on DOAC. GI prophylaxis: continue home dose. PT/OT/ST to evaluate and treat. DC planning: Full code length of stay off MRI results as well as PT OT and speech therapy consults. This note is dictated with the use of M*Modal. Please note that this dictation was completed with computer voice recognition software. Quite often unanticipated grammatical, syntax, homophones, and other interpretive errors are inadvertently transcribed by the computer software. Please disregard these errors. Please excuse any errors that have escaped final proofreading. SMITHA Viramontes Physician Attestation: I have reviewed the above note authored by the Advance Practice Provider (JERAMY) including history, review of systems, physical examination, medical decision making and agree with the assessment & plan. I have personally performed a face to face diagnostic evaluation on this patient. I have reviewed all laboratory findings and imaging reports/films. I have independently evaluated the patient and repeated reina portions of the physical exam. I agree with the JERAMY plan as above, unless otherwise noted. NIKHIL WOODALL MD documented in this encounter ED Notes * Maria Luz Syed CNA - 01/15/2025 5:51 PM EDT Admit 214, up after 1810 * Wilfrid Carey RN - 01/15/2025 3:45 PM EDT Pt daughter requests to speak with RN regarding potential placement in assisted living or increase in assistance at home. Primary RN and provider informed of converstation. * Wilfrid Carey RN - 01/15/2025 3:13 PM EDT Pt family at report that pt woke up with left sided facial droop and slurred speech. Pt family reports that LKW was 01/14 at 2130 before going to bed. * Severiano Shah MD - 01/15/2025 3:05 PM EDTAssociated Order(s): ED NIHSS And Thrombolytic MD Screening Images from the original note were not included. [facility] - EMERGENCY Pt Name: Jamey Ceja Birthdate: 1975 Chief Complaint: Chief Complaint Patient presents with Stroke Alert History of Present Illness: Initial assessment performed by Dr. Wagner Shah at 3:02 PM. Patient presents to the ED today with complaints of stroke like symptoms. Pt's daughter states thatwhen she arrived home the pt woke up from sleep with left sided facial droop, speech difficulty, and bilateral leg weakness with a last known well of last night (01/14/2025) at 9:30 PM. Pt notes that they feel fuzzy. Pt notes that they have left arm weakness and bilateral leg weakness. Pt's daughter states that the pt had a stroke on 12/26/24 and are taking their prescribed Eliquis. Pt has various drug allergies. There are no other concerning symptoms at this time. 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 Past Surgical History: Past Surgical History: Procedure Laterality Date APPENDECTOMY SECTION x2 CHOLECYSTECTOMY COLONOSCOPY DIAGNOSTIC / SCREENING N/A 03/13/2024 Performed by Rad Mckeon DO at [facility] HYSTERECTOMY one ovary removed Neuro Invasive N/A 12/26/2024 Performed by Romero Daly MD at [facility]ATH [facility] OOPHORECTOMY 1 removed Stroke Thrombectomy N/A 12/26/2024 Performed by Romero Daly MD at [facility]ATH [facility]S TONSILLECTOMY Family History: Family History Problem Relation Age of Onset Migraines Mother No Known Problems Father Breast cancer Neg Hx Social History: Social History Socioeconomic History Marital status: Single Tobacco Use Smoking status: Every Day Current packs/day: 1.00 Average packs/day: 1 pack/day for 20.0 years (20.0 ttl pk-yrs) Types: Cigarettes Smokeless tobacco: Never Vaping Use Vaping status: Some Days Substances: Nicotine Substance and Sexual Activity Alcohol use: Yes Comment: occasional Drug use: Never Sexual activity: Defer Social Drivers of Health Financial Resource Strain: Low Risk (02/04/2024) Received from [facility] Overall Financial Resource Strain (CARDIA) Difficulty of Paying Living Expenses: Not very hard Food Insecurity: No Food Insecurity (01/16/2025) Hunger Screening Food Insecurity - Worry: Never True Food Insecurity - Inability: Never True Transportation Needs: No Transportation Needs (01/16/2025) PRAPARE - Transportation Lack of Transportation (Medical): No Lack of Transportation (Non-Medical): No Physical Activity: Insufficiently Active (02/04/2024) Received from [facility] Exercise Vital Sign Days of Exercise per Week: 3 days Minutes of Exercise per Session: 40 min Social Connections: Moderately Isolated (02/04/2024) Received from [facility] Social Connection and Isolation Panel [NHANES] Frequency of Communication with Friends and Family: More than three times a week Frequency of Social Gatherings with Friends and Family: Once a week Attends Jainism Services: More than 4 times per year Active Member of Clubs or Organizations: No Attends Club or Organization Meetings: Never Marital Status: Never Interpersonal Safety: Not At Risk (01/16/2025) Humiliation, Afraid, Rape, and Kick questionnaire Fear of Current or Ex-Partner: No Emotionally Abused: No Physically Abused: No Sexually Abused: No Housing Instability: Low Risk (01/16/2025) Housing Instability Housing Instability: No Review of Systems: Review of Systems Physical Exam: ED Triage Vitals [01/15/25 1503] Temp Heart Rate Resp BP SpO2 -- 67 20 126/86 100 % Temp src Heart Rate Source Patient Position BP Location FiO2 (%) -- Pulse Ox Sitting Left arm -- Vitals: 01/16/25 0045 01/16/25 0404 01/16/25 0747 01/16/25 1213 BP: 135/79 129/78 112/71 105/62 Temp: 36.7 ??C (98 ??F) 36.7 ??C (98 ??F) 36.9 ??C (98.4 ??F) 36.9 ??C (98.5 ??F) TempSrc: Oral Oral Oral Oral Pulse: 73 71 80 75 Resp: 16 18 17 17 SpO2: 99% 97% 99% 99% MAP (mmHg): 96 89 85 76 Height: Weight: 99 Physical Exam Vitals reviewed. Constitutional: Appearance: She is well-developed and well-groomed. HENT: Head: Normocephalic and atraumatic. Mouth/Throat: Lips: [place]. Eyes: Conjunctiva/sclera: Conjunctivae normal. Cardiovascular: Rate and Rhythm: Normal rate. Pulmonary: Effort: Pulmonary effort is normal. Breath sounds: Normal breath sounds. Abdominal: General: There is no distension. Palpations: Abdomen is soft. Musculoskeletal: General: No deformity. Cervical back: Normal range of motion and neck supple. Skin: General: Skin is warm and dry. Neurological: Mental Status: She is alert and oriented to person, place, and time. GCS: GCS eye subscore is 4. GCS verbal subscore is 5. GCS motor subscore is 6. Comments: Left arm drift, articulation mild dysarthria, bilateral leg drifting Procedure: ED NIHSS And Thrombolytic MD Screening Performed by: Severiano Shah MD Authorized by: Severiano Shah MD Time NIHSS was performed: 01/15/2025 3:02 PM LOC: 0 - Alert LOC Questions: 0 - Answers both correctly LOC Commands: 0 - Performs both tasks correctly Best Gaze: 0 - Normal horizontal movements Visual Jacobson: 0 - No visual field defect Facial Movements: 0 - Normal Motor Function Right Arm: 0 - No drift right arm holds for 10 seconds Motor Function Left Arm: 1 - Left arm falls before 10 seconds, does not touch bed Motor Function Right Le - Right leg falls to bed before 5 seconds Motor Function Left Le - Left leg falls to bed before 5 seconds Limb Ataxia: 0 - No limb ataxia Sensory: 0 - No sensory loss Language: 0 - Language normal Articulation: 1 - Articulation mild dysarthria Extinction or Inattention: 0 - Extinction or inattention absent Confirmed Time of Onset or Last Known Well: Date: 01/14/2025 Time: 21:30 EDT NIHSS stroke scale completed TOTAL NIHSS SCORE: 6 Do presenting disabilities interfere with lifestyle(i.e. work, hobbies, entertainment etc.?: Yes Stroke team initiated Absolute Contraindications: Onset greater than 4.5 hours - Patient not eligible for Thrombolytic. Decision for Thrombolytics: Thrombolytics will not be given based on the history and assessment of the patient. Re-evaluation: Nilam Mireles (scribe), documented on behalf and in the presence of Dr. Wagner Shah. 3:44 PM Nursing staff informed Dr. Shah that the pt's daughter had a conversation with her noting that the pt is not getting the 24/7 care she needs and they would be interested in assisted living. 4:35 PM Patient will be admitted. 4:[address] Lara updated patient. 5:11 PM Patient states that she is itchy from the contrast dye and needs benadryl. Medical Decision Making There is concern that the patient is having an acute ischemic stroke Last Known Well (LKW): 01/14/2025 at 9:30 PM NIH Score: 6 Case discussed with Neuro Interventionalist: Dr. Araujo Plan of Care: TNK given, admit to the hospital 4:36 PM Patient will be admitted Amount and/or Complexity of Data Reviewed Labs: ordered. Details: Labs notable for: aPTT 25 Glucose 190 Calcium 8.3 Bedside glucose 174 White Blood cells 11.5 RBC count 3.48 Hemoglobin 10.04 Hematocrit 32.1 RDW 20.0 Radiology: ordered and independent interpretation performed. Decision-making details documented in ED Course. Details: Imaging was independently viewed and is notable for no findings for acute intracranial abnormality,Stable normal CTA neck. No acute intracranial abnormality, by CT Imaging agreeable with official radiologist read. ECG/medicine tests: ordered and independent interpretation performed. Details: ECG notable for no ischemic changes. Discussion of management or test interpretation with external provider(s): 3:[address] Shah spoke with Dr. Araujo (Neuro Interventionalist) via phone regarding the plan of care for the pt. Dr. Araujo agrees that the pt is not a TNK candidate due to being out of the time window. Dr. Araujo recommends CTAs and will look at the images when they are back. 4:[address] Lara spoke with Deanne (hospitalist) and Dwayne via messaging about patient getting admitted. They accepted admission. Risk Prescription drug management. ED Course: Clinical Impressions as of 01/16/25 1226 Weakness . ED Disposition ED Disposition Observation Date/Time WedJanuary 15, 2025 4:40 PM Comment Diagnosis: Weakness [[id number]] Admitting Physician: NIKHIL WOODALL [[id number]] Attending Provider: NIKHIL WOODALL [[id number]] Medications Prescribed this Visit This print group is not available in inpatient encounters. Please contact a water reclamation systems operator. . Please note that portions of this note were completed with a voice recognition program. Efforts were made to edit the dictations but occasionally words are mis-transcribed. [facility] 01/15/25 1525 [facility] 01/15/25 1526 [facility] 01/15/25 1526 [facility] 01/15/25 1527 [facility] 01/15/25 1527 [facility] 01/15/25 1540 [facility] 01/15/25 1546 [facility] 01/15/25 1604 [facility] 01/15/25 1636 [facility] 01/15/25 1637 [facility] 01/15/25 1639 [facility] 01/15/25 1641 [facility] 01/15/25 1712 [facility] 01/15/25 1746 Severiano Shah MD 01/16/25 1226 documented in this encounter Miscellaneous Notes * PT/OT/MANAGER OF SOFTWARE - Fannie Nolasco [facility]-MANAGER OF SOFTWARE - 01/16/2025 2:08 PM EDT Speech Therapy Evaluation PHQ2 - Over the past 2 weeks, how often have you been bothered by the following problems? Little Interest or Pleasure in Doing Things: Nearly everyday Feeling Down, Depressed or Hopeless: More than half the days Score: 5 Score ranges from 0 to 6; patients with scores of 3 or more should be further evaluated. Pt with significant disinterest throughout session. Bedside Swallow/Feeding Evaluation Speech & Language Cognitive Evaluation Discharge Recommendations for Safe Patient Transition Home Recommendations: Home, 24 hour caregiver support for: Post Discharge Therapy Recommendations: Home Physical Therapy, Home Occupational Therapy, Outpatient Physical Therapy, Outpatient Occupational Therapy Recommendations Diet Level: Regular Liquid Level: Level 0 Thin Compensatory Strategies: Small sips/bites, One sip/bite at a time, Alternate liquids/solids Supervision/Positioning: Patient at 90 degress for all PO intake (including medication), Patient toremain upright 15 minutes after meals Medications: One at a time No Skilled ST: Swallow skills judged to be consistent with premorbid status Impressions Oral Dysphagia: Mild Pharyngeal Dysphagia Suspected: No Significant R sided weakness noted on evaluation. Plan No Need for skilled Speech Language Pathology Services to address deficits in feeding/swallowing due to a status decline resulting from weakness Prognosis IDischarge Recommendations for Safe Patient Transition Home Recommendations: Home, 24 hour caregiver support for: Post Discharge Therapy Recommendations: Home Physical Therapy, Home Occupational Therapy, Outpatient Physical Therapy, Outpatient Occupational Therapy Impressions Receptive Language: Within Functional Limits Expressive Language: Within Functional Limits Cognitive Linguistic: Mild-moderate, Consistent with premorbid status [facility] Mental Status Examination (UMS) is an assessment tool designed to be used for patients with mild cognitive impairment or dementia. It assesses skills such as orientation, memory, verbal reasoning, and problem solving. The SLUMS is scored out of 30 points, with normal range 27-30 for individuals with high school education or higher and 25-30 for individuals with less than high school education. Patient received a total score of 16/30, indicating neurocognitive deficit.Deficits noted in areas of memory. It was noted that pt was closing eyes during evaluation and required cues to participate in evaluation. Plan No Skilled ST: Consistent with premorbid status No Need for skilled Speech Language Pathology Services to address deficits in speech/language/cognition due to a status decline resulting from weakness Prognosis Prognosis/Potential: Fair Considerations: Carry over information, Cognition Assessment Bedside Swallow/Feeding Eval Speech & Language Cognitive Eval Baseline Assessment Prior BSSE/VFSS: Yes WFL Additional Testing Results: Computed Tomography, Magnetic resonance imaging Setting Prior to Admission: Home Associated Problems: Mental status changes Respiratory Status: Room Air History of Intubation: No Behavior/Cognition: Alert, Agitated, Uncooperative Dentition: Adequate Vision: Functional for self-feeding Patient Positioning: Upright in chair Baseline Vocal Quality: Normal Volitional Cough: Strong Volitional Swallow: Within Functional Limits Laryngectomy: No Ability to Control Secretions: Yes Room Service: Appropriate for room service Feeding Assistance: Able to feed self Current Diet Type: Level 0 Thin, Regular Appetite: Good Allergies Marked As Reviewed: Complete Oral/Motor Overall Oral/Motor Status: Exceptions to Within Functional Limits Labial Symmetry: Abnormal symmetry right Labial Strength: Reduced Labial Coordination: Reduced Lingual Symmetry: Abnormal symmetry right Lingual Strength: Reduced Lingual Coordination: Reduced Vocal Quality: Within Functional Limits Vocal Intensity: Within Functional Limits Apraxia: Oral Intelligibility: Intelligible Breath Support: Adequate for speech Dentition: Adequate Xerostomia: No Hearing: Within Functional Limits Consistencies Assessed: Yes Level 0 Thin Presentation: Spoon, Cup, Straw Oral: Within Functional Limits Pharyngeal: Within Functional Limits Level 4 Pureed Presentation: Spoon Oral: Within Functional Limits Pharyngeal: Within Functional Limits Level 6 Soft and Bite-Sized Presentation: Spoon Oral: Oral stasis/pocketing Pharyngeal: Within Functional Limits Regular Presentation: Spoon, Self feed Pharyngeal: Within Functional Limits Cranial Nerve Screening CN V (trigeminal): Within Functional Limits CN VII (facial): Weak lip closure CN X (vagus): Within Functional Limits CN XII (hypoglossal): Reduced tongue movements Pain Assessment Pain Assessment: No/denies pain Oral/Motor Overall Oral/Motor Status: Exceptions to Within Functional Limits Labial Symmetry: Abnormal symmetry right Labial Strength: Reduced Labial Coordination: Reduced Lingual Symmetry: Abnormal symmetry right Lingual Strength: Reduced Lingual Coordination: Reduced Vocal Quality: Within Functional Limits Vocal Intensity: Within Functional Limits Apraxia: Oral Intelligibility: Intelligible Breath Support: Adequate for speech Dentition: Adequate Xerostomia: No Hearing: Within Functional Limits Cranial Nerve Screening CN V (trigeminal): Within Functional Limits CN VII (facial): Weak lip closure CN X (vagus): Within Functional Limits CN XII (hypoglossal): Reduced tongue movements Auditory Comprehension Overall Auditory Comphension Status: Consistent with premorbid status Verbal Expression Overall Verbal Expression Status: Consistent with premorbid status High Level Language Overall High Level Language Status: Exceptions to Within Functional Limits Attention: Exceptions to WFL Sustained Attention: Moderate Memory: Exceptions to WFL Immediate Memory: Moderate Short-term Memory: Moderate Working Memory: Moderate Cognition Overall Cognitive Status: Exceptions to Within Functional Limits Arousal/Alertness: Delayed responses to stimuli Attention Span: Attends with cues to redirect Memory: Decreased immediate memory, Decreased short term memory Orientation Level: Oriented X4 Following Commands: Follows multistep commands with repetition Pain Assessment Pain Assessment: No/denies pain Plan Diagnosis Code Swallowing: R13.12 Dysphagia, oropharyngeal phase Cognition: R41.841 Cognitive communication deficit Speech Therapy Care Plan Speech Therapy Care Plan (Active) There are no active problems. Speech Therapy Care Plan (Resolved) There are no resolved problems. Principal Problem: Stroke-like symptoms Active Problems: TTP (thrombotic thrombocytopenic purpura) ([facility]) Weakness History of thrombectomy History of stroke Leukocytosis Hypomagnesemia Acute deep vein thrombosis (DVT) of femoral vein of right lower extremity ([facility]) Cosigned by Nikhil Woodall MD at 01/16/2025 2:52 PM EDT * PT/OT/MANAGER OF SOFTWARE - Nikhil Woodall MD - 01/16/2025 1:26 PM EDT Physical Therapy Evaluation Discharge Recommendations for Safe Patient Transition Home Recommendations: Home, 24 hour caregiver support for: (ADLs, IADLs, transportation) Post Discharge Therapy Recommendations: Home Physical Therapy, Home Occupational Therapy, Outpatient Physical Therapy, Outpatient Occupational Therapy (Patient preference, would help with depression to attend outpatient therapy.) Concrete Plant Laborer Support for-: Mobility Deficits, ADL Deficits 6 Clicks: Basic Mobility Turning from your back to your side while in a flat bed without using bed rails?: A little Moving from lying on your back to sitting on side of flat bed without using bed rails?: A little Moving to and from bed to a chair (including w/c)?: A little Standing up from a chair using your arms (e.g. w/c or bedside chair)?: A little To walk in hospital room?: A little Climbing 3-5 steps with a railing?: A lot Scoring 6 Clicks: Basic Mobility Raw Score: 17 [facility] G Code Modifier: CK Therapy Plan Need for skilled Physical Therapy to address deficits in functional mobility due to a status decline resulting from recent CVA with new onset stroke like symptoms. PT Treatment/Interventions: Functional transfer training, LE strengthening/ROM, Endurance training,Balance, Stair training, Gait training, Bed mobility, Functional activities, Neuromuscular reeducation PT Frequency: 4-5days/week PT Duration: 10 days Assessment Patient Assessment Therapy Problem List: Decreased ADL status, Decreased balance, Decreased endurance, Decreased high-level ADLs, Decreased mobility, Decreased LE strength, Abnormal posture Patient Response to Treatment: Tolerated evaluation without adverse reaction Mood/Affect: Flat (Depressed, angry, impulsive) Rehab Prognosis: Good, With continued PT status post acute discharge, With continued OT status postacute discharge, 24 hour supervision recommended Visit RN Communication: Yes Medical Record Reviewed: Yes PT Type of Visit: Evaluation Precautions Activity: early mobility pass; OK to eval per RN, Nan Equipment: RW, gait belt, BSC, telemetry Weight Bearing Status: FWB Telemetry/Business Trainer: Yes Oxygen Used: room air Other: Complaints of ill feelings with mobility. BP prior to mobility is 105/62 mmHg and post mobility is 131/98 mmHg. 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 Can you leave now? Pain Assessment Pain Assessment: No/denies pain (No complaints of pain initially. With attempts to reposition in bed complaints of sharp back pain but doesn't rate on VAS. No increased pain with mobility.) Home Living Type of Home: House Home Layout: Two level, Able to live on main level with bedroom/bathroom (BSC in upstairs bedroom; full bath on main floor only) Stairs to Enter: 5 Hand Rails: Left Stairs in Home: 12 Hand Rails in Home: Bilateral Bathroom Shower/Tub: Tub/shower unit Bathroom Toilet: Standard Bathroom Equipment: Shower chair, Hand-held shower, Commode, Grab bars around toilet Bathroom Accessibility: Accessible via walker Home Equipment: Rolling walker, 4 Wheeled walker Prior Function Lives With: (Daughter, Mom; Maybe 1 hour alone at a time.) Receives Help From: Family Level of Mobility: Needs assistance with ADLs or functional transfers or gait (Assist with all dressing and bathing. Ambulatory in home with RW. MIN A on stairs with use of rail. Mother assisting with all ADLs.) Homemaking Assistance: Needs assistance (Family does cooking, cleaning, laundry. Drove before stroke in November but not since. Mother provides transportation. Daughter gets the groceries.) ADL / IADL Hand Dominance: Right Other: Requires assist for upper body and lower body dressing and bathing. Family performing all IADLs and providing transportation. Hearing / Speech / Vision Hearing: Within Functional Limits Speech: Within Functional Limits Current Vision: No visual deficits Cognition Orientation Level: Oriented X4 Sensation Overall Sensation Status: (Intact to light pressure dermatomes L1-S1 bilaterally. Relates R. foot feels like it is asleep.) Bed Mobility Rolling: Stand by assist Supine to Sit: Stand by assist Sit to Supine: Stand by assist Other: Supine to sit and sit to supine from right side of bed, as well as supine to sit from left side of bed with use of hospital bed functions, SBA this date. Needs encouragement to mobilize. Transfers Sit to Stand: Contact guard assist Stand to Sit: Contact guard assist Bed to Chair: Contact guard assist Other: Transfers from bed to bedside commode as well as from bed to bedside chair with use of RW and CGA. Patient requires cues for safe hand placement and steadying assist but with poor safety awareness during transfer. Patient some what impulsive with flat affect. Gait Base of Support: Wide Pattern: Decreased migdalia, R Decreased foot clearance, L Decreased foot clearance Gait Assistance: Contact guard assist Assistive Device: Rolling walker Gait Distance: 16 Limiting Factors to Gait: Weakness Other: Patient ambulates 16ft with use of RW and CGA. Patient has slight trunk flexion posture, slow migdalia, decreased foot clearance bilaterally, all of which increases her risk for falls. Requiresassist to keep proximity to RW. Balance Sitting Balance: Static: Good Sitting Balance: Dynamic: Good Standing Balance: Static: Fair Standing Balance: Dynamic: Fair Posture Posture Evaluation: (Decreased lumbar lordosis, rounded shoulders.) RLE Assessment: (At least 3/5 myotomes L1-S1; poor ability to sustain resistance with MMT but functionally only requiring SBA/CGA.) LLE Assessment: (At least 3/5 myotomes L1-S1; poor ability to sustain resistance with MMT but functionally only requiring SBA/CGA.) Activity Tolerance Endurance: Tolerates <30 minutes activity with vital sign changes Plan Physical Therapy Care Plan Physical Therapy Care Plan (Active) Template: PT - Physical Therapy Problem: Activity Tolerance Dates: Start: 01/16/25 Disciplines: PT Goal: Tolerate 30 minutes of activity WITH rest breaks Dates: Start: 01/16/25 Expected End: 01/25/25 Description: Goal Description: to improve participation in ADLs and transfer training. Disciplines: PT Problem: Bed Mobility Dates: Start: 01/16/25 Disciplines: PT Goal: Patient will perform bed mobility with Supervision Dates: Start: 01/16/25 Expected End: 01/25/25 Description: Goal Description: SUP from HOB flat, no rail, as per home set-up. Disciplines: PT Problem: Gait Dates: Start: 01/16/25 Disciplines: PT Goal: Patient will perform gait with Stand By Assist Dates: Start: 01/16/25 Expected End: 01/25/25 Description: With__RW__,_60___feet Goal Description: to negotiate short functional distances within home set-up. Disciplines: PT Problem: Transfers Dates: Start: 01/16/25 Disciplines: PT Goal: Patient will perform transfers with Supervision Dates: Start: 01/16/25 Expected End: 01/25/25 Description: Goal Description: and use of RW do to improving LE strength for reduced caregiver burden at discharge. Disciplines: PT Physical Therapy Care Plan (Resolved) There are no resolved problems. Principal Problem: Stroke-like symptoms Active Problems: TTP (thrombotic thrombocytopenic purpura) ([facility]) Weakness History of thrombectomy History of stroke Leukocytosis Hypomagnesemia Acute deep vein thrombosis (DVT) of femoral vein of right lower extremity ([facility]) * Discharge Planning Note - Lauren Wilson RN - 01/16/2025 12:44 PM EDT Images from the original note were not included. Discharge Planning Assessment Jamey Ceja Admit Status: Observation Meet: Yes Readmission Risk: N/A. Date of Admission: 01/15/2025 GMLOS: Observation < 48 hours Target Discharge Date: 01/17/2025 Discharge Planning Assessment completed at bedside. Senior Architect/Design Manager identified self and role to the patient.Patient is agreeable to the assessment and discussion of a safe discharge plan. Initial Assessment Flowsheet Row Most Recent Value Patient Information Initial Pre-Hospitalization Assessment Completed? Completed Primary Caregiver Family [Family's mom states that patient is alone for part of the night time. Otherwise, it is she or her daughter that stay with her.] Discharge Planning Living Arrangements Alone [Mother and patient's daughter have been staying with her during waking hours.] Assistance Needed Pt is noted to have slight left sided residual weakness according to July Valverde RN.She is able to use walker and Nan states that patient is able to get up to BSC without assistance. Patient's mother states that patient has someone staying with her the majority of the time. Especially during waking hours. Her mother states that patient has had some personality change since the stroke and that she is mean at times and wants to sleep all the time. The patient stated that this is all depression to discuss her care. She staes she wants to go home, and then clarifies with to heaven . Patient has no identified plan to get to heaven or a time frame. July Valvered RN notified. Mother states patient has a walker, BSC, cane and all the equipment she needs at home. Mother transports patient to outpatient PT and OT at [facility] 2-3 x's per week. Mother states patient has no difficulty getting in and out of the car and she is able to navigate steps inside home. Primary care nurse states that herrera's daughter has expressed some frustration and feels her mother is exagerating some of her symptoms and is not wanting to do anything for herself, such as dressing herself. Senior Architect/Design Manager asked if she is cooking her own meals. Patient states that she is not because she may forget and leave the stove on. Senior Architect/Design Manager encouraged patient to atleast use microwave as she appears to not be forgetful that she is forgetful as above. Patient states that things will never be the same. She admits to some feelings of depression. Senior Architect/Design Manager explains that grief is normal after a stroke. However, she appears to be able to do more than she is completing for herself. She was encouraged to begin participating directly in her own self care. Senior Architect/Design Manager informs patient that we will notify Dr. Hubbard's office regarding her feelings that things will never be the same. At this time discharge is pending PT/OT recommendations. Mother and patient deny further equipment needs at home. Residence Accessibility Steps into home Number of Steps 3 Home Care Services No [Original plan in [place] was home with home health. It is unclear why the plan changed to Home with Outpatient therapy. Patient is uncertain why this discharge plan changed.] Community Agencies Currently Utilized Established Durable Medical Equipment Provider Established Durable Medical Equipment Provider Other Other Medical Services Company Type of Residence Private residence Who is the existing DME Provider? [employer] ([employer]) ([phone]) Established DME Comments Walker, bedside commode, shower chair Stressors Type of stressor Health issues Explain issues Health issues. Income Information Income Information Unemployed [Pt states she was employed prior to the stroke. Mother was informed that they may need to discuss patient's future financial plan with Department of Job and Family Services and/or Social Security.] IP Hunger/Food Insecurity Screening Within the past 12 months we worried whether our food would run out before we got money to buy more. Never True Within the past 12 months the food we bought just didn't last and we didn't have money to get more.Never True Hunger Screening Complete? Yes Pt. Eligible for Food / Voucher No If Eligible: Received Food Box Not Offered to Patient Warm Handoff Complete Caregiver/Family Member Caregiver/Family Member Mother was at bedside during assessment and she does provide participation in assessment. She and patient's daughter provide healthcare network consultant support on a daily basis with patient. Mostly during waking hours. However, patient is alert and oriented and is her own decision maker. Caregiver/Support System Limitations Caregiver/Support Systems Limitations (Check All That Apply) No Caregiver Needed Patient/Caregiver Goals Community Provider Referral Services Requested Patient expects to be discharged to: Home and resume OP therapy or Home Health Care verses SNF pendign PT/OT evaluation. Does the patient wish to have family/friend/caregiver involved in their discharge planning? No, thepatient does not wish to have family/friend/caregiver involved in their discharge planning Discharge Disposition Home with self care [Home and resume OP therapy or Home Health Care verses SNF pendign PT/OT evaluation.] Who is the existing DME Provider? [employer] ([employer]) ) Does the patient need discharge transportation arranged? No [Mother is able to drive patient to herappointments and home from hospital.] Patient choice offered Yes List Provided Yes CarePort List Provided Home Care Pharm[facility]: [facility] PCP: Dr. Destin Hubbard Consulting Providers this admission: Tele Stroke Patient will make her own follow up appointments: no Patient Goals: Goals Home and resume OP therapy or Home Health Care verses SNF pendign PT/OT evaluation. (pt-stated) Evaluation of progress towards goal: Patient states she prefers to return home. Tele Neuro cleared patient today and stated the patient is cleared for discharge. PT Recommends: Pending evaluation OT Recommends: Pending evaluation Home Health Care (HHC) [facility] to [facility] and filtered by insurance payor. Referrals to the following C was tasked to the Transition Center as requested by patient: [facility] Plan to prevent readmission: Supportive education provided to patient regarding participation in her self care and activities of daily living. Patient/Family do not endorse any questions at this time. Patient Discharge Plan: Home and resume OP therapy or Home Health Care (Pending acceptance) verses SNF pending PT/OT evaluation and recommendations. No equipment needs. Follow up appointments as below: Dr. Romero Daly (Stroke Clinic) scheduled for February 07, 2025 @ 133. Dr. Destin Hubbard (PCP-Senior Architect/Design Manager left message regarding concerns for patient post stroke depression/grief and to return call for follow up appointment). - Lauren Wilson RN 01/16/25 12:54 [address] Follow up with [address]. Hubbard confirmed as below. Patient Discharge Plan: Home and resume OP therapy or Home Health Care (Pending acceptance) verses SNF pending PT/OT evaluation and recommendations. No equipment needs. Follow up appointments as below: Dr. Romero Daly (Stroke Clinic) scheduled for February 07, 2025 @ 1330. Dr. Destin Hubbard (PCP-Senior Architect/Design Manager left message regarding concerns for patient post stroke depression/grief and to return call for follow up appointment). Appointment confirmed for February 02, 2025 @ 929. - Lauren Wilson RN 01/16/25 1:06 PM Patient only had 3 home health care companies on her CarePort list as below. Noted are the responses for acceptance. [facility] - Unable to accept as they do not accept insurance plan. [facility] - No unable to accept as patient is our of service area. [facility] - No response in CarePort. Patient will most likely be unable to have home health care r/t limited providers for payor source. Discharge Plan as below is reflective of limited home health care options. Patient Discharge Plan: Home and resume OP therapy verses SNF pending PT/OT evaluation and recommendations. No equipment needs. Home health care providers limited r/t patient payor source. Unable to get a company to accept. Follow up appointments as below: Dr. Romero Daly (Stroke Clinic) scheduled for February 07, 2025 @ [address]. Dr. Destin Hubbard (PCP-Senior Architect/Design Manager left message regarding concerns for patient post stroke depression/grief and to return call for follow up appointment). Appointment confirmed for February 02, 2025 @ 929. - Lauren Wilson RN 01/16/25 1:56 PM Patient was provided 2024 Stroke Support Group Calendar for possible post stroke depression. - Lauren Wilson RN 01/16/25 3:28 PM * Discharge Planning Note - Stephanie Espinal - 01/16/2025 12:20 PM EDT DISCHARGE PLANNING NOTE Referral sent to. [facility]- P# ; F# [facility] (P# ; F# ) [place] [address] * PT/OT/MANAGER OF SOFTWARE - SHIRLENE Ocampo - 01/16/2025 11:42 AM EDT Speech Therapy MANAGER OF SOFTWARE Type of Visit: Medical deferral Reasons for Medical Deferral: With other medical staff, Other (see comments) (With Televisit) First attempt 11:15, pt with Telehealth. Second attempt 11:42, pt still with telehealth at this time. Will attempt evaluation again as able. * PT/OT/MANAGER OF SOFTWARE - Casandra Shaver, PT - 01/16/2025 11:28 AM EDT Physical Therapy PT Type of Visit: (P) Medical deferral (Undergoing neuro televist. Not able to attempt at this time.) PT orders received. Chart reviewed. First attempt at 0940 and patient not appropriate do to lethargy and decreased responsiveness from ativan given for MRI. Second attempt patient undergoing teleneuro visit. Will re-attempt as appropriate. * PT/OT/MANAGER OF SOFTWARE - HERNAN Vásquez - 01/16/2025 11:10 AM EDT Occupational Therapy OT Type of Visit: Medical deferral (neuro televisit underway.) attempted to see patient times 2 trials, 1 time at 9:30- just returned from MRI was recently given Ativan and sleeping/difficult to arouse. 2nd attempt 11:04- tele visit underway. OT to continue to follow and complete as time permits. * Plan of Care - Kayce Valverde RN - 01/16/2025 8:02 AM EDT Problem: Knowledge Deficit Goal: Patient/patient health and safety representative demonstrates understanding of disease process, treatment plan,medications, and discharge instructions Description: INTERVENTIONS 1. Complete learning assessment and assess knowledge base 2. Provide teaching at level of understanding 3. Provide teaching via preferred learning method(s) Outcome: Progressing Note: Evaluation of progress towards goal: POC discussed with patient. Questions answered PRN. Problem: Discharge Planning Goal: Discharge to post-acute care, other facility, or home with appropriate resources Description: Patient's goal is: INTERVENTIONS 1. Conduct assessment to determine patient/family and health care team treatment goals, and need for post-acute services based on payer coverage, community resources, and patient preferences, and barriers to discharge 2. Coordinate with Social work, Care Navigation, and Utilization Review to arrange appropriate level of services according to patient's needs based on patient preference and payer coverage in collaboration with the physician and health care team 3. Address psychosocial, clinical, and financial barriers to discharge as identified in assessment in conjunction with the patient/family and health care team 4. Consult appropriate ancillary services (i.e.. PT/OT/ST, etc) as needed 5. Communicate with and update the patient/family, physician, and health care team regarding progress on the discharge plan 6. Identify discharge learning needs (meds, wound care, etc). 7. Arrange for needed discharge transportation as appropriate Outcome: Progressing Note: Evaluation of progress towards goal: Continue to assess for when appropriate. * Plan of Care - Abdirashid Hernandez RN - 01/16/2025 12:07 AM EDT Problem: Pain Goal: Patient goal is pain score less than 4, able to rest, and participant in treatment plan as appropriate Description: INTERVENTIONS: 1. Encourage patient or legal health and safety representative to report early pain and ask for pain medicine when needed 2. Assess pain using appropriate pain scale and include the scale used when documenting 3. Administer analgesics based on type and severity of pain and evaluate response within appropriate time frame 4. Implement non-pharmacological measures as appropriate and evaluate response 5. Consider cultural and social influences on pain and pain management 6. Notify LIP if interventions ineffective or patient reports new pain 7. Monitor vital signs including pulse ox, end-tidal CO2 based on pain intervention 8. Reassess pain per policy 9. Teach patient or legal health and safety representative interventions for comforting Outcome: Progressing Note: Evaluation of progress towards goal: Pt able to report pain according to 0/10 pain scale. Medicating patient for pain per orders. Problem: Safety Goal: Patient will be injury free during hospitalization Description: INTERVENTIONS: 1. Assess patient's risk for falls and implement fall prevention plan of care per policy 2. Provide and maintain a safe environment 3. Proper use of double Identifiers 4. Medication administration using the 5 rights 5. Hand hygiene 6. Specimens are labeled at the bedside 7. Instruct patient/ patient health and safety representative about use of safety devices 8. Include patient/ patient health and safety representative in decisions related to safety Outcome: Progressing Note: Evaluation of progress towards goal: Pt's risk for falls assessed and fall prevention implemented as needed, safe environment provided and maintained, hand hygiene completed. Problem: Infection Goal: Absence of infection during hospitalization Description: INTERVENTIONS 1. Assess and monitor for signs and symptoms of infection. 2. Monitor lab/diagnostic results. 3. Monitor all insertion sites i.e., indwelling lines, tubes and drains. 4. Monitor endotracheal (as able) and nasal secretions for changes in amount and color. 5. Administer medications as ordered. 6. Instruct and encourage patient and family to use good hand hygiene technique. 7. Identify and instruct patient/patient health and safety representative in use of appropriate isolation precautionsfor identified infection/symptoms. 8. Provide and discuss with patient/patient health and safety representative on educational MDRO sheet. 9. Encourage and monitor nutritional status daily and consult exchange mechanic if indicated. 10. Implement neutropenic guidelines as needed. Outcome: Progressing Note: Evaluation of progress towards goal: Patient VS WNL, remains afebrile for shift. Continue to monitor. Problem: Knowledge Deficit Goal: Patient/patient health and safety representative demonstrates understanding of disease process, treatment plan,medications, and discharge instructions Description: INTERVENTIONS 1. Complete learning assessment and assess knowledge base 2. Provide teaching at level of understanding 3. Provide teaching via preferred learning method(s) Outcome: Progressing Note: Evaluation of progress towards goal: POC discussed with patient. Questions answered PRN. Problem: Neurological Deficit Goal: Neurological status is stable or improving Description: Patient's goal is: INTERVENTIONS 1. Complete Neurological assessment as indicated/ordered 2. Initiate measures to prevent increased intracranial pressure 3. Monitor and assess patient's level of consciousness, motor function, sensory function, and levelof assistance needed for ADLs 4. Monitor and report changes from baseline 5. Maintain blood pressure and fluid volume within ordered parameters to optimize cerebral perfusion and minimize risk of hemorrhage 6. Monitor labs and diagnostic tests 7. Administer anti-seizure medications as ordered 8. Maintain airway, patient safety and administer oxygen as ordered 9. Monitor patient for seizure activity, document and report duration and description of seizure toLIP 10. If seizure occurs, turn patient to side and suction secretions as needed 11. Reorient patient post seizure 12. Seizure pads on all 4 side rails 13. Instruct patient/family to notify RN of any seizure activity 14. Instruct patient/family to call for assistance with activity based on assessment 15. Utilize bleeding precautions if thrombolytic given Outcome: Progressing Note: Evaluation of progress towards goal: Neuro status stable Problem: Potential for Compromised Skin Integrity Goal: Skin integrity is maintained or improved Description: Patient's goal is: INTERVENTIONS 1. Perform initial skin assessment on admission and as needed 2. Turn patient every 2 hours and PRN 3. Relieve pressure to bony prominences 4. Avoid shearing 5. Keep skin clean and dry 6. Alternate a full bath with partial baths for elderly 7. Apply lotion/moisturizer on skin 8. Monitor patient's hygiene practices 9. Float heels 10. Collaborate with interdisciplinary team and initiate plans and interventions as needed Outcome: Progressing Note: Evaluation of progress towards goal: Pt skin is clean and dry, skin assessed and monitored for new areas, shearing avoided. Goal: Patient's nutritional intake is adequate Description: Patient's goal is: INTERVENTIONS 1. Assess and monitor food intake and supplements, patient food preferences, nausea, vomiting, labs, oral cavity (gums, teeth, tongue, mucosa), proper denture fit, and cultural beliefs 2. Monitor for signs of hypoglycemia and hyperglycemia 3. Collaborate with interdisciplinary team and initiate plan and interventions as ordered 4. Monitor patient's weight 5. Assist patient with meals/food selection 6. Assist patient with eating 7. Allow adequate time for meals 8. Provide pleasant environment during mealtime 9. Increase social contact during mealtimes 10. Plan activities to conserve energy 11. Encourage/perform oral hygiene as appropriate 12. Encourage patient to take dietary supplement as ordered 13. Collaborate with clinical exchange mechanic 14. Include patient/ patient's health and safety representative in decisions related to nutrition Outcome: Progressing Note: Evaluation of progress towards goal: Patient understands the importance of proper nutrition to aid in healing. Problem: Moderate - High Risk Fall Score Description: Painting Fall Score of =/> 25 or indicated by [facility] Assessment Goal: Patient should be free from fall Description: Interventions: 1. [place] to environment 2. Hourly rounds addressing the 4 P's (Pain, Positioning, Possessions, Potty) 3. Clear area of hazards (spills, clutter, electrical cords, unnecessary equipment) 4. Place equipment (bed & TV controls, call light, phone, urinal) within reach 5. Encourage patient to wear glasses and hearing aides as appropriate 6. Maintain bed in lowest position 7. Lock wheels on bed/wheelchair 8. Provide adequate lighting, including night light 9. Assess need for additional bedding, food/fluids, pain med's prior to sleep/routinely 10. Provide gripper slippers or personal non-skid footwear 11. Teach patient and patient health and safety representative to maintain environment for safety and engage in all aspects of fall prevention program 12. Remind patient to call for help before getting out of bed 13. Initiate bed/chair/exit alarms supportive devices as appropriate, (chair wedge, no-skid floor mat, raised edge mattress, hip protectors) 14. Locate patient bed assignment for optimal visualization 15. Evaluate and identify Safe Patient Handling Equipment needs 16. Provide supervision when out of bed or chair 17. Utilize gait belt as needed to assist with ambulation 18. Place adaptive equipment (cane, walker) within reach 19. Request patient health and safety representative bring adaptive equipment/mobility aids from home or obtain and provide as needed 20. Consult pharmacy regarding effects of med's affecting mobility, cognition, and alternatives 21. Obtain physician order for PT if risk factors associated with mobility are present 22. Obtain physician order for OT as appropriate 23. Utilize diversional activities 24. Educate patient and patient health and safety representative how to maintain a safe environment during visitationtimes (notify nurse prior to leaving bedside) 25. Consider appropriateness of medical or non-coroner/medical examiner 26. Set up voiding schedule as appropriate (every 2 hours) Outcome: Progressing Note: Evaluation of progress towards goal: Pt remains free from falls or accidental injury during shift. Fall prevention measures in place. Hourly rounding per RN and maintained. documented in this encounter Plan of Treatment Upcoming Encounters Date Type Department Care Team (Late st Contact Info) Description 02/07/2025 1:30 PM EDT Office Visit [facility] Neurology, A Department of [facility] [address] [place] [phone] Romero Daly MD [address] [facility] [place] [phone] 02/12/2025 2:30 PM EDT Office Visit [facility] [place] [address] [place] [address] Marissa Daigle, DO [address] [facility] [address] [place] [phone] Scheduled Referrals Name Type Priority Associated Diagnoses Order Schedule [facility] - [place], [place] Outpatient Referral Routine Weakness History of stroke 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 Author Home and resume OP therapy or Home Health Care verses SNF pendign PT/OT evaluation. General Yes Lauren Wilson, FELICITAS Note: Evaluation of progress towards goal: Patient states she prefers to return home. Tele Neuro cleared patient today and stated the patient is cleared for discharge. documented as of this encounter Procedures Procedure Name Priority Date/Time Associated Diagnosis Comments BEDSIDE GLUCOSE Routine 01/16/2025 12:19 PM EDT , URINE Routine 01/16/2025 11:3 5 AM EDT URINALYSIS Routine 01/16/2025 11:35 AM EDT MR BRAIN WO CONT Routine 01/16/2025 9:38 AM EDT EXTRA TUBES BLUE TOP Routine 01/16/2025 4:28 AM EDT PROCALCITONIN Routine 01/16/2025 4:28 AM EDT EXTRA TUBES Routine 01/16/2025 4:28 AM EDT CBC WITH AUTO DIFFERENTIAL Routine 01/16/2025 4:28 AM EDT IRON AND TIBC Routine 01/16/2025 4:28 AM EDT MAGNESIUM Routine 01/16/2025 4:28 AM EDT HEMOGLOBIN A1C Routine 01/16/2025 4:28 AM EDT FERRITIN Routine 01/16/2025 4:28 AM EDT LIPID PROFILE Routine 01/16/2025 4:28 AM EDT COMPREHENSIVE METABOLIC PANEL Routine 01/16/2025 4:28 AM EDT BEDSIDE GLUCOSE Routine 01/15/2025 9:[address] CTA CAROTID STAT 01/15/2025 3:[address] CTA HEAD STAT 01/15/2025 3:35 PM EDT ECG 12-LEAD STAT 01/15/2025 3:[address] BRAIN WO CONT STROKE ALERT STAT 01/15/2025 3:21 PM EDT TROPONIN I, HIGH SENSITIVITY 0 HOUR STAT 01/15/2025 3:20 PM EDT TROPONIN I, HIGH SENSITIVITY 0 HOUR STAT 01/15/2025 3:20 PM EDT THYROID PROFILE INCLUDES TSH FT4 Routine 01/15/2025 3:20 PM EDT CBC WITH AUTO DIFFERENTIAL STAT 01/15/2025 3:20 PM EDT APTT STAT 01/15/2025 3:20 PM EDT PROTIME & INR STAT 01/15/2025 3:20 PM EDT PHOSPHORUS Routine 01/15/2025 3:20 PM EDT BASIC METABOLIC PANEL STAT 01/15/2025 3:20 PM EDT BEDSIDE GLUCOSE Routine 01/15/2025 3:06 PM EDT ED PHYSICIAN NIHSS AND THROMBOLYTIC DECISION Routine 01/15/2025 3:05 PM EDT documented in this encounter Results * (ABNORMAL) Bedside Glucose *Place/Obtain serum glucose if >500 per glucometer. (01/16/2025 12:19PM EDT) Bedside Glucose (POC) 155(H) 65 - 99 mg/dL 01/16/2025 12:22 PM EDT [facility] arterial/capilla ry 01/16/2025 12:19 PM EDT 01/16/2025 12:22 PM EDT us Nikhil Woodall MD POINT OF CARE TEST ORDERABLES Final Result Performing Organization Address City/[facility]/ZIP Co de Phone Number [facility] [address] [place] [address], [place] * , urine (01/16/2025 11:35 AM EDT) URINE Negative Negative 01/16/2025 12:30 PM EDT [facility] Urine 01/16/2025 11:3 5 AM EDT 01/16/2025 12:13 PM EDT us Deanne Valencia AGRICULTURAL RESEARCH ENGINEER-AMUSEMENT RIDE INSPECTOR URINE ORDERABLES Final Res ult Performing Organization Address City/[facility] Co de Phone Number [facility] [address] [place] [address], [place] * Urinalysis (01/16/2025 11:35 AM EDT) COLOR Yellow Yellow, Colorless 01/16/2025 12:25 PM EDT [facility] TURBIDITY Clear Clear 01/16/2025 12:25 PM EDT [facility] SPECIFIC GRAVITY 1.020 1.003 - 1.035 01/16 12:25 PM EDT [facility] NITRITE Negative Negative 01/16/2025 12:25 PM EDT [facility] PH,URINE 6.5 5.0 - 8.5 01/16/2025 12:25 PM EDT [facility] LEUKOCYTE ESTERASE Negative Negative 01/16/2025 12:25 PM EDT [facility] PROTEIN Negative Negative 01/16/2025 12:25 PM EDT [facility] KETONES (URINE) Negative Negative 12:25 PM EDT [facility] UROBILINOGEN 0.2 eu/dL 0.2 eu/dL, 1.0 eu/dL 01/16/2025 12:25 PM EDT [facility] BILIRUBIN (URINE) Negative Negative 01/16/2025 12:25 PM EDT [facility] BLOOD/HGB Negative Negative 01/16/2025 12:25 PM EDT [facility] GLUCOSE (URINE) Negative Negative, 250 mg/dL, >1000 mg/dL 01/16/2025 12:25 PM EDT [facility] Urine 01/16/2025 11:3 5 AM EDT 01/16/2025 12:13 PM EDT Narrative [facility] - 01/16/2025 12:25 PM EDT Urine received without preservative. Delays in transport may affect results. Interpret with caution. A clinical correlation is recommended. us Deanne Valencia AGRICULTURAL RESEARCH ENGINEER-AMUSEMENT RIDE INSPECTOR URINE ORDERABLES Final Res ult [facility] [address] [place] [address], [place] * MR brain without contrast (01/16/2025 9:38 AM EDT) Anatomical Region Laterality Modality Neuro, Head, Head and Neck, Neuro [place] N/A Magnetic Resonance 01/16/2025 10:3 5 AM EDT Narrative 01/16/2025 10:39 AM EDT EXAM: MRI BRAIN WITHOUT CONTRAST CLINICAL HISTORY: CVA, rule out. TECHNIQUE: TECHNIQUE: Routine multiplanar multisequence MR imaging of the brain was performed without contrast. Please note, sagittal T1 postcontrast sequence was not obtained as the patient could not tolerate completion of the examination due to claustrophobia. COMPARISONS: MRI dated 12/27/2024 FINDINGS: There is no restricted diffusion. There are only a couple of faint tiny foci of FLAIR hyperintensity within the cerebral white matter, nonspecific though most commonly seen in the setting of chronic ischemic small vessel disease. The wilson-white matter differentiation is preserved. There is no intracranial mass effect. The ventricles are proportional to the overall brain volume without evidence for outflow obstruction. There is no shift of the midline structures and the basal cisterns are widely patent. There is no susceptibility to suggest the presence of intracranial blood degradation products. There is a small focus of nonaggressive polypoid mucosal thickening in a left ethmoid air cell. The paranasal sinuses are otherwise well aerated. The mastoids are clear. IMPRESSION: 1. Please note, a sagittal T1 postcontrast sequence was not obtained as the patient could not tolerate completion of the examination due to claustrophobia. 2. No evidence for acute intracranial abnormalities. 3. There are only a couple of tiny foci of FLAIR hyperintensity within the cerebral white matter. These are nonspecific, though most commonly seen in the setting of chronic ischemic small vessel disease. They can also be seen in the setting of chronic headaches. There is no evidence for an acute infarct or intracranial mass effect. Finalized by Leonard Quinn MD on 01/16/2025 10:39 AM Procedure Note Leonard Quinn MD - 01/16/2025 EXAM: MRI BRAIN WITHOUT CONTRAST CLINICAL HISTORY: CVA, rule out. TECHNIQUE: TECHNIQUE: Routine multiplanar multisequence MR imaging of thebrain was performed without contrast. Please note, sagittal [id number] sequence was not obtained as the patient could not toleratecompletion of the examination due to claustrophobia. COMPARISONS: MRI dated 12/27/2024 FINDINGS: There is no restricted diffusion. There are only a couple of faint tinyfoci of FLAIR hyperintensity within the cerebral white matter, nonspecificthough most commonly seen in the setting of chronic ischemic small vesseldisease. The wilson-white matter differentiation is preserved. There is no intracranial mass effect. The ventricles are proportional to the overallbrain volume without evidence for outflow obstruction. There is no shiftof the midline structures and the basal cisterns are widely patent. Thereis no susceptibility to suggest the presence of intracranial blooddegradation products. There is a small focus of nonaggressive polypoid mucosalthickening in a left ethmoid air cell. The paranasal sinuses are otherwisewell aerated. The mastoids are clear. IMPRESSION: 1. Please note, a sagittal T1 postcontrast sequence was not obtained asthe patient could not tolerate completion of the examination due toclaustrophobia. 2. No evidence for acute intracranial abnormalities. 3. There are only a couple of tiny foci of FLAIR hyperintensity within thecerebral white matter. These are nonspecific, though most commonly seen inthe setting of chronic ischemic small vessel disease. They can also beseen in the setting of chronic headaches. There is no evidence for anacute infarct or intracranial mass effect. Finalized by Leonard Quinn MD on 01/16/2025 10:39 AM Nikhil Woodall MD IMG MRI ORDERABLES Final Resul t * Ferritin (01/16/2025 4:28 AM EDT) FERRITIN 90 11 - 307 ng/mL 01/16/2025 2:19 PM EDT [facility] Blood 01/16/2025 4:28 AM EDT 01/16/2025 5:01 AM EDT Deanne Valencia APRN-AMUSEMENT RIDE INSPECTOR LAB BLOOD ORDERABLES Final Result Performing Organization Address City/[facility]/ZIP Co de Phone Number [facility] [address] [place] [address], [place] [phone] * Iron and TIBC (01/16/2025 4:28 AM EDT) IRON 84 50 - 170 ug/dL 01/16/2025 2:07 PM EDT [facility] TRANSFERRIN 216 168 - 336 mg/dL 01/16/2025 2:07 PM EDT [facility] IRON BINDING 302 250 - 425 ug/dL 01/16/2025 2:07 PM EDT [facility] IRON SATURATION 28 15 - 50 % SATURATION 01/16/2025 2:07 PM EDT [facility] Blood 01/16/2025 4:28 AM EDT 01/16/2025 5:01 AM EDT Deanne Valencia APRN-AMUSEMENT RIDE INSPECTOR LAB BLOOD ORDERABLES Final Result [facility] [address] [place] [address], [place] [phone] * (ABNORMAL) Procalcitonin (01/16/2025 4:28 AM EDT) PROCALCITONIN 0.06(H) <0.05 ng/mL 01/16/2025 9:42 AM EDT [facility] Blood 01/16/2025 4:28 AM EDT 01/16/2025 5:01 AM EDT Narrative [facility] - 01/16/2025 9:42 AM EDT <0.50 ng/mL - Low risk of severe sepsis and/or septic shock. <2.00 ng/mL - Recommend retesting within 6-24 hours. >2.00 ng/mL - High risk of sepsis and/or septic shock. us Deanne Valencia APRN-AMUSEMENT RIDE INSPECTOR LAB BLOOD ORDERABLES Final Result Performing Organization Address [facility] Co de Phone Number [address] [place] [address], [place] * Light Blue Top (01/16/2025 4:28 AM EDT) Extra Tube Auto Resulted 01/16/2025 6:03 AM EDT [facility] Blood Venous blood / Unknown 01/16/2025 4:28 AM EDT 01/16/2025 5:05 AM EDT us Nikhil Woodall MD LAB BLOOD ORDERABLES Final Res ult Performing Organization Address City/[facility]/ZIP Co de Phone Number [address] [place] [address], [place] * (ABNORMAL) CBC auto differential (01/16/2025 4:28 AM EDT) WBC 14.0(H) 4 - 11 x10E9/L 01/16/2025 7:25 AM EDT [facility] RBC Count 3.30(L) 3.8 - 5.2 X10E12/L 01/16/2025 7:25 AM EDT [facility] Hemoglobin 10.1(L) 11.7 - 15.5 g/dL 01/16/2025 7:25 AM EDT [facility] Hematocrit 30.8(L) 35 - 47 % 01/16/2025 7:25 AM EDT [facility] MCV 93 80 - 100 fL 01/16/2025 7:25 AM EDT [facility] MCH 30.5 27 - 34 pg 01/16/2025 7:25 AM EDT [facility] MCHC 32.7 32 - 36 g/dL 01/16/2025 7:25 AM EDT [facility] RDW 20.2(H) 11.5 - 15 % 01/16/2025 7:25 AM EDT [facility] Platelet Count 204 150 - 450 X10E9/L 01/16/2025 7:25 AM EDT [facility] MPV 7.9 7 - 12 fL 01/16/2025 7:25 AM EDT [facility] Myelocyte 1 % 01/16/2025 7:25 AM EDT [facility] Comment:This is an appended report. These results have been appended to a previously preliminary verified report. % Bands Neutrophils 1 % 01/16/2025 7:25 AM EDT [facility] Comment:This is an appended report. These results have been appended to a previously preliminary verified report. Neutrophils Relatives 70 % 01/16/2025 7:25 AM EDT [facility] Comment:This is an appended report. These results have been appended to a previously preliminary verified report. Lymphocytes Relative 23 % 01/16/2025 7:25 AM EDT [facility] Comment:This is an appended report. These results have been appended to a previously preliminary verified report. Monocytes Relative 5 % 01/16/2025 7:25 AM EDT [facility] Comment:This is an appended report. These results have been appended to a previously preliminary verified report. nRBC 1 01/16/2025 7:25 AM EDT [facility] Comment:This is an appended report. These results have been appended to a previously preliminary verified report. Neutrophils Absolute (M) 10.0(H) 1.5 - 6.6 10*3/uL 01/16/2025 7:25 AM EDT [facility] Comment:This is an appended report. These results have been appended to a previously preliminary verified report. Lymphocytes Absolute 3.2 1.0 - 3.5 10*3/uL 01/16/2025 7:25 AM EDT [facility] Comment:This is an appended report. These results have been appended to a previously preliminary verified report. Monocytes Absolute 0.7 0.0 - 0.9 10*3/uL 01/16/2025 7:25 AM EDT [facility] Comment:This is an appended report. These results have been appended to a previously preliminary verified report. RBC Morphology Reviewed 01/16/2025 7:25 AM EDT [facility] Comment:This is an appended report. These results have been appended to a previously preliminary verified report. Differential Type MANUAL DIFFERENTIAL 01/16/2025 7:25 AM EDT [facility] Comment:This is an appended report. These results have been appended to a previously preliminary verified report. Blood 01/16/2025 4:28 AM EDT 01/16/2025 5:01 AM EDT us Nikhil Woodall MD LAB BLOOD ORDERABLES Final Res ult [facility] [address] [place] [address], * (ABNORMAL) Magnesium (01/16/2025 4:28 AM EDT) MAGNESIUM 1.7(L) 1.8 - 2.6 mg/dL 01/16/2025 5:25 AM EDT [facility] Blood 01/16/2025 4:28 AM EDT 01/16/2025 5:01 AM EDT us Nikhil Woodall MD LAB BLOOD ORDERABLES Final Res ult [facility] [address] [place] [address], [place] * (ABNORMAL) Comprehensive metabolic panel (01/16/2025 4:28 AM EDT) SODIUM 137 134 - 146 mmol/L 01/16/2025 5:25 AM EDT [facility] POTASSIUM 3.5 3.5 - 5.0 mmol/L 01/16/2025 5:25 AM EDT [facility] CHLORIDE 102 98 - 109 mmol/L 01/16/2025 5:25 AM EDT [facility] CARBON DIOXIDE 23 22 - 32 mmol/L 01/16/2025 5:25 AM EDT [facility] ANION GAP 12 5 - 15 mmol/L 01/16/2025 5:25 AM EDT [facility] BLOOD UREA NITROGEN 18 5 - 23 mg/dL 01/16/2025 5:25 AM EDT [facility] CREATININE 0.93 0.40 - 1.00 mg/dL 01/16/2025 5:25 AM EDT [facility] Comment:METHOD TRACEABLE TO IDMS STANDARD GLUCOSE 140(H) 65 - 99 mg/dL 01/16/2025 5:25 AM EDT [facility] CALCIUM 9.0 8.5 - 10.5 mg/dL 01/16/2025 5:25 AM EDT [facility] TOTAL PROTEIN 5.7(L) 6.0 - 8.0 g/dL 01/16/2025 5:25 AM EDT [facility] ALBUMIN 3.2 3.2 - 5.3 g/dL 01/16/2025 5:25 AM EDT [facility] ALKALINE PHOSPHATASE 65 39 - 130 U/L 01/16/2025 5:25 AM EDT [facility] AST 17 <=41 U/L 01/16/2025 5:25 AM EDT [facility] ALT 39(H) <=31 U/L 01/16/2025 5:25 AM EDT [facility] BILIRUBIN,TOTAL 0.6 0.3 - 1.2 mg/dL 01/16/2025 5:25 AM EDT [facility] EGFR Non-Race Dependent 76 >=60 ml/min/1.7 3sq.m 01/16/2025 5:25 AM EDT [facility] Comment: eGFR not reported due to non-numeric value for Creatinine. Reported eGFR is based on the CKD-EPI 2020 equation that does not use a race coefficient. Blood 01/16/2025 4:28 AM EDT 01/16/2025 5:01 AM EDT Nikhil Woodall MD LAB BLOOD ORDERABLES Final Res ult [facility] [address] [place] [address], * Hemoglobin A1c (01/16/2025 4:28 AM EDT) HEMOGLOBIN A1C 5.6 4.4 - 5.6 % 01/16/2025 11:25 AM EDT [facility] Comment: ADA Guidelines Result HgbA1c Normal : less than 5.7 % Prediabetes : 5.7 % to 6.4 % Diabetes : > 6.4 % Use with caution in patients with abnormal hemoglobin variants as the half-life of red blood cells and in vivo glycation rates are affected. EST. AVERAGE GLUCOSE 114 mg/dL 01/16/2025 11:25 AM EDT [facility] Blood Venous blood / Unknown 01/16/2025 4:28 AM EDT 01/16/2025 5:01 AM EDT Nikhil Woodall MD LAB BLOOD ORDERABLES Final Res ult Performing Organization Address City/[facility]/ZIP Co de Phone Number [facility] [address] [place] [address], * Lipid profile (01/16/2025 4:28 AM EDT) CHOLESTEROL 170 150 - 200 mg/dL 01/16/2025 10:47 AM EDT [facility] TRIGLYCERIDE 97 27 - 150 mg/dL 01/16/2025 10:47 AM EDT [facility] HDL CHOLESTEROL 71 >39 mg/dL 10:47 AM EDT [facility] Comment: HDL <40 mg/dL - High Risk HDL > or = 40mg/dL- Desirable HDL >60 mg/dL - Negative Risk LDL (CALC) 80 <130 mg/dL 01/16/2025 10:47 AM EDT [facility] Comment: LDL <100 mg/dL - Desirable LDL >160 mg/dL - High Risk CHOLESTEROL:HDL 2.4 1.0 - 5.0 10:47 AM EDT [facility] VERY LOW LIPOPROTEIN 19 0 - 30 mg/dL 01/16/2025 10:47 AM EDT [facility] Blood Venous blood / Unknown 01/16/2025 4:28 AM EDT 01/16/2025 5:01 AM EDT Nikhil Woodall MD LAB BLOOD ORDERABLES Final Res ult [facility] [address] [place] [address], * (ABNORMAL) Bedside Glucose *Place/Obtain serum glucose if >500 per glucometer. (01/15/2025 9:55 PM EDT) Bedside Glucose (POC) 225(H) 65 - 99 mg/dL 01/16/2025 8:30 AM EDT [facility] arterial/capilla ry 01/15/2025 9:55 PM EDT 01/16/2025 8:30 AM EDT us Nikhil Woodall MD POINT OF CARE TEST ORDERABLES Final Result [facility] [address] [place] [address], [place] * CT angiogram carotid (01/15/2025 3:35 PM EDT) Anatomical Region Laterality Modality Neuro, Neck, Vascular, Neuro Covera N/A Computed Tomography 01/15/2025 4:13 PM EDT Narrative 01/15/2025 4:[address] ANGIOGRAM OF THE NECK CLINICAL INFORMATION: stroke like symptoms. TECHNIQUE: CT angiogram performed following intravenous administration of nonionic intravenous contrast. Coronal and sagittal and 3-D volume rendered maximum intensity projection images generated and reviewed under concurrent physician supervision. Automated exposure control utilized. The [place] Symptomatic Carotid Endarterectomy Trial (NASCET) method for calculating the degree of stenosis was utilized for stenosis measurements. COMPARISON: 12/26/2024 FINDINGS: There is a standard aortic arch configuration. There is no significant stenosis at the arch origins of the vessels. The visualized portions of the subclavian arteries are unremarkable. The common carotid arteries are well opacified without evidence for significant stenosis. The right carotid bifurcation is unremarkable with a widely patent origin of the internal carotid artery. The left carotid bifurcation is unremarkable with a widely patent origin of the internal carotid artery. The internal carotid arteries are symmetric and well opacified throughout their cervical courses. The vertebral arteries are symmetric. The vertebral arteries are well opacified throughout their cervical courses and join to form a normal diameter basilar artery. IMPRESSION: Stable normal CTA neck. There is no stenosis in the neck. All CT scans at this facility use dose modulation, iterative reconstruction, and/or weight based dosing when appropriate to reduce radiation dose to as low as reasonably achievable. Finalized by Leonard Quinn MD on 01/15/2025 4:15 PM Procedure Note Leonard Quinn MD - 01/15/2025 CT ANGIOGRAM OF THE NECK CLINICAL INFORMATION: stroke like symptoms. TECHNIQUE: CT angiogram performed following intravenous administration ofnonionic intravenous contrast. Coronal and sagittal and 3-D volumerendered maximum intensity projection images generated and reviewed underconcurrent physician supervision. Automated exposure control utilized. The[place] Symptomatic Carotid Endarterectomy Trial (NASCET) method forcalculating the degree of stenosis was utilized for stenosismeasurements. COMPARISON: 12/26/2024 FINDINGS: There is a standard aortic arch configuration. There is no significantstenosis at the arch origins of the vessels. The visualized portions ofthe subclavian arteries are unremarkable. The common carotid arteries arewell opacified without evidence for significant stenosis. The rightcarotid bifurcation is unremarkable with a widely patent origin of the internalcarotid artery. The left carotid bifurcation is unremarkable with a widelypatent origin of the internal carotid artery. The internal carotidarteries are symmetric and well opacified throughout their cervicalcourses. The vertebral arteries are symmetric. The vertebral arteries are wellopacified throughout their cervical courses and join to form a normaldiameter basilar artery. IMPRESSION: Stable normal CTA neck. There is no stenosis in the neck. All CT scans at this facility use dose modulation, iterativereconstruction, and/or weight based dosing when appropriate to reduceradiation dose to as low as reasonably achievable. Finalized by Leonard Quinn MD on 01/15/2025 4:15 PM Severiano Shah MD IMG CT ORDERABLES Final Result * CT angiogram head (01/15/2025 3:35 PM EDT) Anatomical Region Laterality Modality Head, Neuro, Vascular, Head and Neck, Neuro Hayes ra N/A Computed Tomography 01/15/2025 4:12 PM EDT Narrative 01/15/2025 4:21 PM EDT EXAM:CT CTA HEAD INDICATION: Left-sided facial droop COMPARISON: 12/26/2024 TECHNIQUE/PROTOCOL: CT angiogram of the head was performed following intravenous administration of 100 cc Omnipaque 350 nonionic intravenous contrast. 3-D maximum intensity projection images generated and reviewed under concurrent physician supervision. Automated exposure control was utilized. Arterial blood flow was measured to assist the stroke clinical team in the diagnosis of large vessel occlusion in patients undergoing screening for acute ischemic stroke using Rapid AI software when clinically indicated. FINDINGS: Intracranial Intracranial ICAs: Normal bilaterally. MCAs: Patent bilaterally with symmetric distal arborization. ACAs: Normal bilaterally. AComm: Normal P-Comms and deliverer food: deliverer food are patent bilaterally. Posterior communicating arteries are not well visualized. Vertebral arteries: Normal to the confluence with the basilar artery. Basilar artery: Normal. IMPRESSION: No large vessel occlusion, critical stenosis, or sizable aneurysm. Finalized by Rad Morales on 01/15/2025 4:21 PM Procedure Note Rad Morales MD - 01/15/2025 EXAM:CT CTA HEAD INDICATION: Left-sided facial droop COMPARISON: 12/26/2024 TECHNIQUE/PROTOCOL: CT angiogram of the head was performed following intravenousadministration of 100 cc Omnipaque 350 nonionic intravenous contrast. 3-Dmaximum intensity projection images generated and reviewed underconcurrent physician supervision. Automated exposure control was utilized.Arterial blood flow was measured to assist the stroke clinical team in the diagnosis of largevessel occlusion in patients undergoing screening for acute ischemicstroke using Rapid AI software when clinically indicated. FINDINGS: Intracranial Intracranial ICAs: Normal bilaterally. MCAs: Patent bilaterally with symmetric distal arborization. ACAs: Normal bilaterally. AComm: Normal P-Comms and deliverer food: deliverer food are patent bilaterally. Posterior communicatingarteries are not well visualized. Vertebral arteries: Normal to the confluence with the basilar artery. Basilar artery: Normal. IMPRESSION: No large vessel occlusion, critical stenosis, or sizable aneurysm. Finalized by Rad Morales on 01/15/2025 4:21 PM us Severiano Shah MD IMG CT ORDERABLES Final Result * EKG 12 lead (01/15/2025 3:31 PM EDT) 01/15/2025 3:31 PM EDT us Severiano Shah MD ECG ORDERABLES Final Result TRACEMASTERVUE * CT brain without contrast stroke alert (01/15/2025 3:21 PM EDT) Anatomical Region Laterality Modality Neuro, Head, Head and Neck, Neuro Covera N/A Computed Tomography 01/15/2025 3:27 PM EDT Narrative 01/15/2025 3:31 PM EDT STUDY: CT BRAIN WO CONT STROKE ALERT INDICATION: Stroke, follow up; assessment of stroke/hemorrhage:. TECHNIQUE: * CT head was performed without intravenous contrast using the standard protocol. Automated exposure control was utilized. * All CT scans at this facility use dose modulation, iterative reconstruction, and/or weight based dosing when appropriate to reduce radiation dose to as low as reasonably achievable. FINDINGS: No evidence of acute intracranial hemorrhage, territorial infarct, mass effect, midline shift, or extra-axial fluid collection. Ventricles, sulci and cistern are unremarkable. Brain volume is age appropriate. Partially empty sella. Orbits and globes appear unremarkable. Soft tissues are unremarkable. Opacification of the left anterior ethmoid air cell. Mastoid air cells are broadly clear. No evidence of aggressive osseous lesion. IMPRESSION: * No acute intracranial abnormality, by CT. MRI is more sensitive for evaluation of ischemia or subtle parenchymal abnormalities. * Partially empty sella. Finalized by Dillon Escobar on 01/15/2025 3:31 PM Procedure Note Dillon Escobar MD - 01/15/2025 STUDY: CT BRAIN WO CONT STROKE ALERT INDICATION: Stroke, follow up; assessment of stroke/hemorrhage:. TECHNIQUE: * CT head was performed without intravenous contrast using the standardprotocol. Automated exposure control was utilized. * All CT scans at this facility use dose modulation, iterativereconstruction, and/or weight based dosing when appropriate to reduceradiation dose to as low as reasonably achievable. FINDINGS: No evidence of acute intracranial hemorrhage, territorial infarct, masseffect, midline shift, or extra-axial fluid collection. Ventricles, sulciand cistern are unremarkable. Brain volume is age appropriate. Partiallyempty sella. Orbits and globes appear unremarkable. Soft tissues are unremarkable. Opacification of the left anterior ethmoid air cell. Mastoid air cells arebroadly clear. No evidence of aggressive osseous lesion. IMPRESSION: * No acute intracranial abnormality, by CT. MRI is more sensitive forevaluation of ischemia or subtle parenchymal abnormalities. * Partially empty sella. Finalized by Dillon Escobar on 01/15/2025 3:31 PM Severiano Shah MD IMG CT ORDERABLES Final Result * Phosphorus (01/15/2025 3:20 PM EDT) PHOSPHORUS 2.9 2.4 - 4.9 mg/dL 01/15/2025 7:00 PM EDT [facility] Blood Venous blood / Unknown Venipuncture / Unknown 01/15/2025 3:20 PM EDT 01/15/2025 3:23 PM EDT Nikhil Woodall MD LAB BLOOD ORDERABLES Final Res ult Performing Organization Address City/[facility]/ZIP Co de Phone Number [address] [place] [address], [place] * (ABNORMAL) Thyroid profile includes TSH FT4 (01/15/2025 3:20 PM EDT) [facility] FREE T4 0.89 0.61 - 1.60 ng/dL 01/15/2025 7:18 PM EDT [facility] TSH 0.46(L) 0.49 - 4.67 uIU/mL 01/15/2025 7:18 PM EDT [facility] Blood Venous blood / Unknown Venipuncture / Unknown 01/15/2025 3:20 PM EDT 01/15/2025 3:23 PM EDT Nikhil Woodall MD LAB BLOOD ORDERABLES Final Res ult Performing Organization Address City/[facility]/ZIP Co de Phone Number [address] [place] [address], [place] * Troponin I, High Sensitivity 0 Hour (01/15/2025 3:20 PM EDT) Pathologist [facility] TROPONIN I, HIGH SENSITIVITY 9 <16 ng/L 01/15/2025 3:57 PM EDT [facility] Blood Venous blood / Unknown Venipuncture / Unknown 01/15/2025 3:20 PM EDT 01/15/2025 3:23 PM EDT us Severiano Shah MD LAB BLOOD ORDERABLES Final Res ult [facility] [address] [place] [address], [place] * (ABNORMAL) CBC auto differential (01/15/2025 3:20 PM EDT) [facility] WBC 11.5(H) 4 - 11 x10E9/L 01/15/2025 4:54 PM EDT [facility] RBC Count 3.48(L) 3.8 - 5.2 X10E12/L 01/15/2025 4:54 PM EDT [facility] Hemoglobin 10.4(L) 11.7 - 15.5 g/dL 01/15/2025 4:54 PM EDT [facility] Hematocrit 32.1(L) 35 - 47 % 01/15/2025 4:54 PM EDT [facility] MCV 92 80 - 100 fL 01/15/2025 4:54 PM EDT [facility] MCH 29.8 27 - 34 pg 01/15/2025 4:54 PM EDT [facility] MCHC 32.3 32 - 36 g/dL 01/15/2025 4:54 PM EDT [facility] RDW 20.0(H) 11.5 - 15 % 01/15/2025 4:54 PM EDT [facility] Platelet Count 218 150 - 450 X10E9/L 01/15/2025 4:54 PM EDT [facility] MPV 7.4 7 - 12 fL 01/15/2025 4:54 PM EDT [facility] Myelocyte 1 % 01/15/2025 4:54 PM EDT [facility] Comment:This is an appended report. These results have been appended to a previously preliminary verified report. % Bands Neutrophils 3 % 01/15/2025 4:54 PM EDT [facility] Comment:This is an appended report. These results have been appended to a previously preliminary verified report. Neutrophils Relatives 77 % 01/15/2025 4:54 PM EDT [facility] Comment:This is an appended report. These results have been appended to a previously preliminary verified report. Lymphocytes Relative 15 % 01/15/2025 4:54 PM EDT [facility] Comment:This is an appended report. These results have been appended to a previously preliminary verified report. Monocytes Relative 1 % 01/15/2025 4:54 PM EDT [facility] Comment:This is an appended report. These results have been appended to a previously preliminary verified report. Eosinophils Relative 1 % 01/15/2025 4:54 PM EDT [facility] Comment:This is an appended report. These results have been appended to a previously preliminary verified report. Atypical Lymphocytes Relative 2 % 01/15/2025 4:54 PM EDT [facility] Comment:This is an appended report. These results have been appended to a previously preliminary verified report. nRBC 1 01/15/2025 4:54 PM EDT [facility] Comment:This is an appended report. These results have been appended to a previously preliminary verified report. Neutrophils Absolute (M) 9.3(H) 1.5 - 6.6 10*3/uL 01/15/2025 4:54 PM EDT [facility] Comment:This is an appended report. These results have been appended to a previously preliminary verified report. Lymphocytes Absolute 1.9 1.0 - 3.5 10*3/uL 01/15/2025 4:54 PM EDT [facility] Comment:This is an appended report. These results have been appended to a previously preliminary verified report. Monocytes Absolute 0.1 0.0 - 0.9 10*3/uL 01/15/2025 4:54 PM EDT [facility] Comment:This is an appended report. These results have been appended to a previously preliminary verified report. Eosinophils Absolute 0.1 0.0 - 0.4 10*3/uL 01/15/2025 4:54 PM EDT [facility] Comment:This is an appended report. These results have been appended to a previously preliminary verified report. Hypochromia 1+ 01/15/2025 4:54 PM EDT [facility] Comment:This is an appended report. These results have been appended to a previously preliminary verified report. Polychromasia 1+ 01/15/2025 4:54 PM EDT [facility] Comment:This is an appended report. These results have been appended to a previously preliminary verified report. Dacryocytes 1+ 01/15/2025 4:54 PM EDT [facility] Comment:This is an appended report. These results have been appended to a previously preliminary verified report. Differential Type MANUAL DIFFERENTIAL 01/15/2025 4:54 PM EDT [facility] Comment:This is an appended report. These results have been appended to a previously preliminary verified report. Blood Venous blood / Unknown Venipuncture / Unknown 01/15/2025 3:20 PM EDT 01/15/2025 3:23 PM EDT us Severiano Shah MD LAB BLOOD ORDERABLES Final Res ult [facility] [address] [place] [address], [place] * (ABNORMAL) APTT (01/15/2025 3:20 PM EDT) APTT 25(L) 26 - 37 sec 01/15/2025 3:35 PM EDT [facility] Blood Venous blood / Unknown Venipuncture / Unknown 01/15/2025 3:20 PM EDT 01/15/2025 3:23 PM EDT us Severiano Shah MD LAB BLOOD ORDERABLES Final Res ult Performing Organization Address City/[facility]/ZIP Co de Phone Number [address] [place] [address], [place] * Protime & INR (01/15/2025 3:20 PM EDT) PROTIME 12.2 9.8 - 13.2 sec 01/15/2025 3:35 PM EDT [facility] INR 1.1 0.9 - 1.2 01/15/2025 3:35 PM EDT [facility] Blood Venous blood / Unknown Venipuncture / Unknown 01/15/2025 3:20 PM EDT 01/15/2025 3:23 PM EDT us Severiano Shah MD LAB BLOOD ORDERABLES Final Res ult Performing Organization Address [facility]/ZIP Co de Phone Number [address] [place] [address], [place] * (ABNORMAL) Basic Metabolic Panel (01/15/2025 3:20 PM EDT) SODIUM 135 134 - 146 mmol/L 01/15/2025 3:45 PM EDT [facility] POTASSIUM 4.3 3.5 - 5.0 mmol/L 01/15/2025 3:45 PM EDT [facility] CHLORIDE 101 98 - 109 mmol/L 01/15/2025 3:45 PM EDT [facility] CARBON DIOXIDE 25 22 - 32 mmol/L 01/15/2025 3:45 PM EDT [facility] ANION GAP 9 5 - 15 mmol/L 01/15/2025 3:45 PM EDT [facility] BLOOD UREA NITROGEN 19 5 - 23 mg/dL 01/15/2025 3:45 PM EDT [facility] CREATININE 0.85 0.40 - 1.00 mg/dL 01/15/2025 3:45 PM EDT [facility] Comment:METHOD TRACEABLE TO IDMS STANDARD GLUCOSE 190(H) 65 - 99 mg/dL 01/15/2025 3:45 PM EDT [facility] CALCIUM 8.3(L) 8.5 - 10.5 mg/dL 01/15/2025 3:45 PM EDT [facility] EGFR Non-Race Dependent 85 >=60 ml/min/1.7 3sq.m 01/15/2025 3:45 PM EDT [facility] Comment: eGFR not reported due to non-numeric value for Creatinine. Reported eGFR is based on the CKD-EPI 2020 equation that does not use a race coefficient. Blood Venous blood / Unknown Venipuncture / Unknown 01/15/2025 3:20 PM EDT 01/15/2025 3:23 PM EDT us Severiano Shah MD LAB BLOOD ORDERABLES Final Res ult [facility] [address] [place] [address] [place] [address], [place] * (ABNORMAL) Bedside Glucose *Place/Obtain serum glucose if >500 per glucometer. (01/15/2025 3:06 PM EDT) Bedside Glucose (POC) 174(H) 65 - 99 mg/dL 01/15/2025 3:07 PM EDT [facility] arterial/capilla ry 01/15/2025 3:06 PM EDT 01/15/2025 3:07 PM EDT us Severiano Shah MD POINT OF CARE TEST ORDERABLES Final Result [facility] [address] [place] [address] [place] [address], [place] * ED NIHSS And Thrombolytic MD Screening (01/15/2025 3:05 PM EDT) Severiano Lerner MD - 01/15/2025 3:05 PM EDT Severiano Shah MD 01/16/2025 12:26 PM ED NIHSS And Thrombolytic MD Screening Performed by: Severiano Shah MD Authorized by: Severiano Shah MD Time NIHSS was performed: 01/15/2025 3:02 PM LOC: 0 - Alert LOC Questions: 0 - Answers both correctly LOC Commands: 0 - Performs both tasks correctly Best Gaze: 0 - Normal horizontal movements Visual Jacobson: 0 - No visual field defect Facial Movements: 0 - Normal Motor Function Right Arm: 0 - No drift right arm holds for 10 seconds Motor Function Left Arm: 1 - Left arm falls before 10 seconds, does not touch bed Motor Function Right Le - Right leg falls to bed before 5 seconds Motor Function Left Le - Left leg falls to bed before 5 seconds Limb Ataxia: 0 - No limb ataxia Sensory: 0 - No sensory loss Language: 0 - Language normal Articulation: 1 - Articulation mild dysarthria Extinction or Inattention: 0 - Extinction or inattention absent Confirmed Time of Onset or Last Known Well: Date: 01/14/2025 Time: 21:30 EDT NIHSS stroke scale completed TOTAL NIHSS SCORE: 6 Do presenting disabilities interfere with lifestyle(i.e. work, hobbies, entertainment etc.?: Yes Stroke team initiated Absolute Contraindications: Onset greater than 4.5 hours - Patient not eligible for Thrombolytic. Decision for Thrombolytics: Thrombolytics will not be given based on the history and assessment of the patient. 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 History of thrombectomy History of stroke Transient ischemic attack (TIA), and cerebral infarction without residual deficits Leukocytosis Leukocytosis, unspecified Hypomagnesemia Disorders of magnesium metabolism Acute deep vein thrombosis (DVT) of femoral vein of right lower extremity (CMS-HCC) documented in this encounter Admitting Diagnoses Diagnosis Weakness Other malaise and fatigue documented in this encounter Administered Medications Inactive Administered Medications - up to 3 most recent administrations Medication Order MAR Action Action Date Dose Rate Site acetaminophen (TYLENOL) tablet 650 mg 650 mg, oral, Every 4 hours PRN, Temperature greater than 38.3 C, Starting on Wed01/15/25 at 1822, [Warning: Total Acetaminophen not to exceed more than 4 grams (4000 mg) in 24 hours] Given 01/16/2025 6:27 AM EDT 650 mg Given 01/16/2025 2:17 AM EDT 650 mg apixaban (ELIQUIS) tablet 5 mg 5 mg, oral, 2 times daily, First dose on Wed01/15/25 at 2100, Indication: Nonvalvular Atrial Fibrillation (NVAF) Given 01/16/2025 8:59 AM EDT 5 mg Given 01/15/2025 9:52 PM EDT 5 mg aspirin EC tablet 81 mg 81 mg, oral, Daily, First dose on Wed01/15/25 at 1830, Do not crush or chew. Given 01/16/2025 8:58 AM EDT 81 mg Given 01/15/2025 9:52 PM EDT 81 mg atorvastatin (LIPITOR) tablet 40 mg 40 mg, oral, Nightly, First dose on Wed01/15/25 at 2200, Look-alike/sound-alike medication - verify indication for use. Given 01/15/2025 9:52 PM EDT 40 m g diphenhydrAMINE (BENADRYL) injection 25 mg 25 mg, intravenous, Once, On Wed01/15/25 at 1715, For 1 dose, Look-alike/sound-alike medication - verify indication for use. Given 01/15/2025 5:15 PM EDT 25 m g famotidine (PEPCID) tablet 20 mg 20 mg, oral, Every 12 hours, First dose on Wed01/15/25 at 2100, Pharmacy to adjust dose per renal function Given 01/16/2025 8:59 AM EDT 20 mg Given 01/15/2025 9:52 PM EDT 20 mg ibuprofen (MOTRIN) tablet 600 mg 600 mg, oral, Once, On Wed01/15/25 at 1750, For 1 dose, Look-alike/sound-alike medication - verify indication for use. Take/Give with food or milk. Given 01/15/2025 5:52 PM EDT 600 mg insulin lispro (HumaLOG) injection 2-8 Units 2-8 Units, subcutaneous, Nightly, First dose on Wed01/15/25 at 2200, Bedtime hyperglycemia dosing. For blood glucose 201-250 mg/dL, give 2 units. For blood glucose 251-300 mg/dL, give 4 units. For blood glucose 301-350 mg/dL, give 6 units. For blood glucose 351-400 mg/dL, give 8 units. Give even if NPO or meals skipped. Do NOT give more often then every 4 hours when NPO. Notify prescriber if blood glucose greater than 400 mg/dL. Look-alike/sound-alike medication - verify indication for use. Prime with 2 units of insulin prior to administration. Prandial/supplemental Insulin. Pre-filled pens stable 28 days at room temperature. Insulin lispro should be administered within 15 minutes before or immediately after a meal. Given 01/15/2025 9:57 PM EDT 2 Units Right Arm iohexoL (OMNIPAQUE) 350 mg iodine/mL injection 100 mL 100 mL, intravenous, Once in imaging, contrast, Starting on Wed01/15/25 at 1522, For 1 dose, VESICANT (RED) Given 01/15/2025 3:26 PM EDT 100 mL LORazepam (ATIVAN) injection 1 mg 1 mg, intravenous, Once as needed, give prior to MRI, Starting on Wed01/16/25 at 0853, For 1 dose, Look-alike/sound-alike medication - verify indication for use;IV use requires increased monitoring of HR,BP,Respirations and Pulse Oximetry;For IV-dilute with equal volume PF sod chloride, Indication: Other, Indication: MRI Given 01/16/2025 8:58 AM EDT 1 mg magnesium sulfate IVPB 2000 mg/50 mL in iso-osmotic water (40 mg/mL premix) 2,000 mg, intravenous, at 25 mL/hr, Administer over 120 Minutes, As needed, Magnesium level 1.7 to 1.9 mg/dL, or Ionized Magnesium level 0.45 to 0.5 mmol/L., Starting on Wed01/15/25 at 1822, Recheck magnesium level 4 hours after infusion complete. With each magnesium result continue the replacement orders as needed. New Bag 01/16/2025 7:03 AM EDT 2,000 mg 25 mL/hr potassium chloride (K-TAB,KLOR-CON) CR tablet 30-50 mEq 30-50 mEq, oral, As needed, Potassium Supplementation, Starting on Wed01/15/25 at 1822, Progress to oral potassium replacement when patient tolerating oral intake. If dose administered, recheck potassium level 4 hours after last dose. For potassium level 3.4 to 3.8 mmol/L and GFR 30 mL/min or greater=30 mEq. For potassium level 3.1 to 3.3 mmol/L and GFR 30 mL/min or greater=40 mEq. For potassium level 3 mmol/L or less and GFR 30 mL/min or greater=50 mEq. Do not crush or chew. Given 01/16/2025 7:01 AM EDT 30 mEq potassium chloride (KAYCIEL) 20 mEq/15 mL solution 30-50 mEq 30-50 mEq, oral, As needed, Potassium Supplementation, Starting on Wed01/15/25 at 1822, Progress to oral potassium replacement when patient tolerating oral intake. If dose administered, recheck potassium level 4 hours after last dose. For potassium level 3.4 to 3.8 mmol/L and GFR 30 mL/min or greater=30 mEq. For potassium level 3.1 to 3.3 mmol/L and GFR 30 mL/min or greater=40 mEq. For potassium level 3 mmol/L or less and GFR 30 mL/min or greater=50 mEq. Must dilute before use - Mix in 3-8 ounces of water or juice before administration When administering in feeding tube, flush before and after per policy and monitor potassium levels potassium chloride IVPB 10 mEq/100 mL in water (0.1 mEq/mL premix) 10 mEq, intravenous, at 100 mL/hr, Administer over 60 Minutes, As needed, POTASSIUM REPLACEMENT, Starting on Wed01/15/25 at 1822, IV if unable to use oral/enteral with the current dosing strategies Potassium level 3 mmol/L or less administer Potassium Chloride 50 mEq Potassium level 3.1 to 3.3 mmol/L administer Potassium Chloride 40 mEq Potassium level 3.4 to 3.8 mmol/L administer Potassium Chloride 30 mEq Use central line when applicable. Recheck potassium level 1 hour after total IVPB infusion complete, With each potassium result continue the replacement orders as needed VESICANT (YELLOW) Infuse each 10 mEq over a minimum of 1 hour. sod phos di, mono-K phos mono (K-PHOS NEUTRAL) 250 mg tablet 2 tablet 2 tablet, oral, As needed, for phosphorus level 2.3 mg/dL or less., Starting on Wed01/15/25 at 1822, If dose administered, recheck phosphorus level 4 hours after last dose. Look-alike/sound-alike medication - verify indication for use. Give with a full glass of water. sodium chloride 0.9 % flush 10 mL 10 mL, intravenous, As needed, line care, Starting on Wed01/15/25 at 1522 Given 01/15/2025 6:31 PM EDT 10 mL Given 01/15/2025 3:27 PM EDT 10 mL sodium chloride 0.9 % infusion 25 mL/hr, intravenous, Continuous, Starting on Wed01/15/25 at 1510, For 1 day New Bag 01/15/2025 6:31 PM EDT 25 mL/hr 25 mL/hr sodium chloride 0.9 % radiology injection 80 mL, intravenous, Once in imaging, pre/post contrast, Starting on Wed01/15/25 at 1522, For 1 dose Given 01/15/2025 3:26 PM EDT 80 mL sodium phosphate 20 mmol in sodium chloride 0.9 % 100 mL IVPB 20 mmol, intravenous, at 26.7 mL/hr, Administer over 4 Hours, As needed, for phosphorus level 2.3 mg/dL or less., Starting on Wed01/15/25 at 1822, Administer over 4 hours via dedicated line (central line). If administered, recheck phosphorus level 4 hours after infusion complete. Infuse using central line access. sodium phosphate 20 mmol in sodium chloride 0.9 % 250 mL IVPB 20 mmol, intravenous, at 42.8 mL/hr, Administer over 6 Hours, As needed, for phosphorus level 2.3 mg/dL or less, Starting on Wed01/15/25 at 1822, Administer over 6 hours via dedicated line (peripheral line). If administered, recheck phosphorus level 4 hours after infusion complete. documented in this encounter Active and Recently Administered Medications Times are shown in EDT. Scheduled Medication Order 01/14/2025 01/15/2025 01/16/2025 apixaban (ELIQUIS) tablet 5 mg 5 mg, oral, 2 times daily, First dose on Wed01/15/25 at 2100, Indication: Nonvalvular Atrial Fibrillation (NVAF) 2151 (Given - Provider: Abdirashid Hernandez RN) 0859 (Given - Provider: Kayce Valverde, RN) aspirin EC tablet 81 mg 81 mg, oral, Daily, First dose on Wed01/15/25 at 1830, Do not crush or chew. 2151 (Given - Provider: Abdirashid Hernandez RN) 0858 (Given - Provider: Kayce Valverde, RN) atorvastatin (LIPITOR) tablet 40 mg 40 mg, oral, Nightly, First dose on Wed01/15/25 at 2200, Look-alike/sound-alike medication - verify indication for use. 2151 (Given - Provider: Abdirashid Hernandez RN) diphenhydrAMINE (BENADRYL) injection 25 mg (COMPLETED) 25 mg, intravenous, Once, On Wed01/15/25 at 1715, For 1 dose, Look-alike/sound-alike medication - verify indication for use. 1714 (Given - Provider: Ree Felipe) famotidine (PEPCID) tablet 20 mg 20 mg, oral, Every 12 hours, First dose on Wed01/15/25 at 2100, Pharmacy to adjust dose per renal function 2151 (Given - Provider: Abdirashid Hernandez RN) 0859 (Given - Provider: Kayce Valverde, FELICITAS) ibuprofen (MOTRIN) tablet 600 mg (COMPLETED) 600 mg, oral, Once, On Wed01/15/25 at 1750, For 1 dose, Look-alike/sound-alike medication - verify indication for use. Take/Give with food or milk. 1751 (Given - Provider: Ree Felipe) insulin lispro (HumaLOG) injection 2-8 Units 2-8 Units, subcutaneous, Nightly, First dose on Wed01/15/25 at 2200, Bedtime hyperglycemia dosing. For blood glucose 201-250 mg/dL, give 2 units. For blood glucose 251-300 mg/dL, give 4 units. For blood glucose 301-350 mg/dL, give 6 units. For blood glucose 351-400 mg/dL, give 8 units. Give even if NPO or meals skipped. Do NOT give more often then every 4 hours when NPO. Notify prescriber if blood glucose greater than 400 mg/dL. Look-alike/sound-alike medication - verify indication for use. Prime with 2 units of insulin prior to administration. Prandial/supplemental Insulin. Pre-filled pens stable 28 days at room temperature. Insulin lispro should be administered within 15 minutes before or immediately after a meal. 2157 (Given - Provider: Abdirashid Hernandez, FELICITAS) Continuous Medication Order 01/14/2025 01/15/2025 01/16/2025 sodium chloride 0.9 % infusion (CANCELED) 25 mL/hr, intravenous, Continuous, Starting on Wed01/15/25 at 1510, For 1 day 1831 (New Bag - Provider: Catrachita Diego RN) 0917 (Stop Bag - Provider: Kayce Valverde RN - Comment: [Order ends at this time. Document the following action when infusion is complete: Stop Bag]) PRN Medication Order 01/14/2025 01/15/2025 01/16/2025 acetaminophen (TYLENOL) tablet 650 mg 650 mg, oral, Every 4 hours PRN, Temperature greater than 38.3 C, Starting on Wed01/15/25 at 1822, [Warning: Total Acetaminophen not to exceed more than 4 grams (4000 mg) in 24 hours] 0217 (Given - Provid er: Abdirashid Hernandez RN)0627 (Given - Provider: Abdirashid Hernandez RN) alum-mag hydroxide-simeth (MAALOX) 200-200-20 mg/5 mL suspension 30 mL 30 mL, oral, 4 times daily after meals and at bedtime as needed, dyspepsia, Starting on Wed01/15/25 at 1822, Look-alike/sound-alike medication - verify indication for use. Shake well., Indications: dyspepsia dextrose (GLUTOSE) 40 % gel 15 g 15 g, oral, As needed, low blood sugar, blood glucose less than 70 mg/dL, Starting on Wed01/15/25 at 1822, If patient conscious and taking PO. If blood glucose is not greater than 70 mg/dL after initial treatment, repeat treatment. dextrose 50 % in water (D50W) 50% solution 25 mL 25 mL, intravenous, As needed, low blood sugar, blood glucose less than 70 mg/dL and unconscious or NPO with IV access, Starting on Wed01/15/25 at 1822, Push over 1-3 minutes STAT. If conscious and not NPO, immediately follow with meal tray or high protein (7 grams) snack if tray not available. If NPO, initiate 5% dextrose in water at 100 mL/hr and contact prescriber for additional orders. If blood glucose is not greater than 70 mg/dL after initial treatment, repeat treatment. VESICANT (RED) Warning: HYPERTONIC solution. glucagon HCL injection 1 mg 1 mg, intramuscular, As needed, low blood sugar, blood glucose less than 70 mg/dL and unconscious or NPO without IV access., Starting on Wed01/15/25 at 1822, If conscious and not NPO, immediately follow with meal tray or high protein (7Grams) snack if tray not available. If NPO, initiate IV 5% Dextrose/Water at 100 mL/hr and contact prescriber for additional orders. If blood glucose is not greater than 70 mg/dL after initial treatment, repeat treatment. iohexoL (OMNIPAQUE) 350 mg iodine/mL injection 100 mL (COMPLETED) 100 mL, intravenous, Once in imaging, contrast, Starting on Wed01/15/25 at 1522, For 1 dose, VESICANT (RED) 1526 (Given - Provider: Poonam Madrigal - Comment: [id number]) LORazepam (ATIVAN) injection 1 mg (COMPLETED) 1 mg, intravenous, Once as needed, give prior to MRI, Starting on Wed01/16/25 at 0853, For 1 dose, Look-alike/sound-alike medication - verify indication for use;IV use requires increased monitoring of HR,BP,Respirations and Pulse Oximetry;For IV-dilute with equal volume PF sod chloride, Indication: Other, Indication: MRI 0858 (Given - Provid er: Kayce Valverde RN) magnesium sulfate IVPB 2000 mg/50 mL in iso-osmotic water (40 mg/mL premix) 2,000 mg, intravenous, at 25 mL/hr, Administer over 120 Minutes, As needed, Magnesium level 1.7 to 1.9 mg/dL, or Ionized Magnesium level 0.45 to 0.5 mmol/L., Starting on Wed01/15/25 at 1822, Recheck magnesium level 4 hours after infusion complete. With each magnesium result continue the replacement orders as needed. 0703 (New Bag - Provider: Abdirashid Hernandez RN)0903 (Stop Bag - Provider: Kayce Valverde RN) magnesium sulfate IVPB 4000 mg/100 mL in iso-osmotic water (40 mg/mL premix) 4,000 mg, intravenous, at 25 mL/hr, Administer over 240 Minutes, As needed, Magnesium level 1.6 mg/dL or less, or Ionized Magnesium level 0.44 mmol/L or less, Starting on Wed01/15/25 at 1822, Recheck magnesium level 4 hours after infusion complete. With each magnesium result continue the replacement orders as needed. ondansetron ODT (ZOFRAN ODT) disintegrating tablet 4 mg 4 mg, buccal, Every 6 hours PRN, nausea, vomiting, Starting on Wed01/15/25 at 1822 potassium chloride (K-TAB,KLOR-CON) CR tablet 30-50 mEq(Linked Group 1) 30-50 mEq, oral, As needed, Potassium Supplementation, Starting on Wed01/15/25 at 1822, Progress to oral potassium replacement when patient tolerating oral intake. If dose administered, recheck potassium level 4 hours after last dose. For potassium level 3.4 to 3.8 mmol/L and GFR 30 mL/min or greater=30 mEq. For potassium level 3.1 to 3.3 mmol/L and GFR 30 mL/min or greater=40 mEq. For potassium level 3 mmol/L or less and GFR 30 mL/min or greater=50 mEq. Do not crush or chew. 0701 (Given - Provid er: Abdirashid Hernandez RN - Comment: K 3.5, 30mEq) potassium chloride (KAYCIEL) 20 mEq/15 mL solution 30-50 mEq(Linked Group 1) 30-50 mEq, oral, As needed, Potassium Supplementation, Starting on Wed01/15/25 at 1822, Progress to oral potassium replacement when patient tolerating oral intake. If dose administered, recheck potassium level 4 hours after last dose. For potassium level 3.4 to 3.8 mmol/L and GFR 30 mL/min or greater=30 mEq. For potassium level 3.1 to 3.3 mmol/L and GFR 30 mL/min or greater=40 mEq. For potassium level 3 mmol/L or less and GFR 30 mL/min or greater=50 mEq. Must dilute before use - Mix in 3-8 ounces of water or juice before administration When administering in feeding tube, flush before and after per policy and monitor potassium levels 0701 (See Alternativ e - Provider: Abdirashid Hernandez RN) potassium chloride IVPB 10 mEq/100 mL in water (0.1 mEq/mL premix)(Linked Group 1) 10 mEq, intravenous, at 100 mL/hr, Administer over 60 Minutes, As needed, POTASSIUM REPLACEMENT, Starting on Wed01/15/25 at 1822, IV if unable to use oral/enteral with the current dosing strategies Potassium level 3 mmol/L or less administer Potassium Chloride 50 mEq Potassium level 3.1 to 3.3 mmol/L administer Potassium Chloride 40 mEq Potassium level 3.4 to 3.8 mmol/L administer Potassium Chloride 30 mEq Use central line when applicable. Recheck potassium level 1 hour after total IVPB infusion complete, With each potassium result continue the replacement orders as needed VESICANT (YELLOW) Infuse each 10 mEq over a minimum of 1 hour. 0701 (See Alternativ e - Provider: Abdirashid Hernandez RN) sennosides-docusate sodium (SENOKOT-S) 8.6-50 mg 1 tablet 1 tablet, oral, Every 12 hours PRN, constipation, Starting on Wed01/15/25 at 1822 sod phos di, mono-K phos mono (K-PHOS NEUTRAL) 250 mg tablet 2 tablet(Linked Group 2) 2 tablet, oral, As needed, for phosphorus level 2.3 mg/dL or less., Starting on Wed01/15/25 at 1822, If dose administered, recheck phosphorus level 4 hours after last dose. Look-alike/sound-alike medication - verify indication for use. Give with a full glass of water. sodium chloride 0.9 % flush 10 mL 10 mL, intravenous, As needed, line care, Starting on Wed01/15/25 at 1522 1527 (Given - Provider: Poonam Novitski)1831 (Given - Provider: Catrachita Diego, FELICITAS) sodium chloride 0.9 % flush bag 25 mL, intravenous, at 100 mL/hr, Administer over 15 Minutes, As needed, line care, line care after IVPB administration, Starting on Wed01/15/25 at 1822 sodium chloride 0.9 % radiology injection (COMPLETED) 80 mL, intravenous, Once in imaging, pre/post contrast, Starting on Wed01/15/25 at 1522, For 1 dose 1526 (Given - Provider: Poonam Madrigal) sodium phosphate 20 mmol in sodium chloride 0.9 % 100 mL IVPB(Linked Group 2) 20 mmol, intravenous, at 26.7 mL/hr, Administer over 4 Hours, As needed, for phosphorus level 2.3 mg/dL or less., Starting on Wed01/15/25 at 1822, Administer over 4 hours via dedicated line (central line). If administered, recheck phosphorus level 4 hours after infusion complete. Infuse using central line access. sodium phosphate 20 mmol in sodium chloride 0.9 % 250 mL IVPB(Linked Group 2) 20 mmol, intravenous, at 42.8 mL/hr, Administer over 6 Hours, As needed, for phosphorus level 2.3 mg/dL or less, Starting on Wed01/15/25 at 1822, Administer over 6 hours via dedicated line (peripheral line). If administered, recheck phosphorus level 4 hours after infusion complete. Linked Groups Order Group 1: potassium chloride (K-TAB,KLOR-CON) CR tablet 30-50 mEqJump to med 30-50 mEq, oral, As needed, Potassium Supplementation, Starting on Wed01/15/25 at 1822, Progress to oral potassium replacement when patient tolerating oral intake. If dose administered, recheck potassium level 4 hours after last dose. For potassium level 3.4 to 3.8 mmol/L and GFR 30 mL/min or greater=30 mEq. For potassium level 3.1 to 3.3 mmol/L and GFR 30 mL/min or greater=40 mEq. For potassium level 3 mmol/L or less and GFR 30 mL/min or greater=50 mEq. Do not crush or chew. Or potassium chloride (KAYCIEL) 20 mEq/15 mL solution 30-50 mEqJump to med 30-50 mEq, oral, As needed, Potassium Supplementation, Starting on Wed01/15/25 at 1822, Progress to oral potassium replacement when patient tolerating oral intake. If dose administered, recheck potassium level 4 hours after last dose. For potassium level 3.4 to 3.8 mmol/L and GFR 30 mL/min or greater=30 mEq. For potassium level 3.1 to 3.3 mmol/L and GFR 30 mL/min or greater=40 mEq. For potassium level 3 mmol/L or less and GFR 30 mL/min or greater=50 mEq. Must dilute before use - Mix in 3-8 ounces of water or juice before administration When administering in feeding tube, flush before and after per policy and monitor potassium levels Or potassium chloride IVPB 10 mEq/100 mL in water (0.1 mEq/mL premix)Jump to med 10 mEq, intravenous, at 100 mL/hr, Administer over 60 Minutes, As needed, POTASSIUM REPLACEMENT, Starting on Wed01/15/25 at 1822, IV if unable to use oral/enteral with the current dosing strategies Potassium level 3 mmol/L or less administer Potassium Chloride 50 mEq Potassium level 3.1 to 3.3 mmol/L administer Potassium Chloride 40 mEq Potassium level 3.4 to 3.8 mmol/L administer Potassium Chloride 30 mEq Use central line when applicable. Recheck potassium level 1 hour after total IVPB infusion complete, With each potassium result continue the replacement orders as needed VESICANT (YELLOW) Infuse each 10 mEq over a minimum of 1 hour. Group 2: sodium phosphate 20 mmol in sodium chloride 0.9 % 250 mL IVPBJump to med 20 mmol, intravenous, at 42.8 mL/hr, Administer over 6 Hours, As needed, for phosphorus level 2.3 mg/dL or less, Starting on Wed01/15/25 at 1822, Administer over 6 hours via dedicated line (peripheral line). If administered, recheck phosphorus level 4 hours after infusion complete. Or sodium phosphate 20 mmol in sodium chloride 0.9 % 100 mL IVPBJump to med 20 mmol, intravenous, at 26.7 mL/hr, Administer over 4 Hours, As needed, for phosphorus level 2.3 mg/dL or less., Starting on Wed01/15/25 at 1822, Administer over 4 hours via dedicated line (central line). If administered, recheck phosphorus level 4 hours after infusion complete. Infuse using central line access. Or sod phos di, mono-K phos mono (K-PHOS NEUTRAL) 250 mg tablet 2 tabletJump to med 2 tablet, oral, As needed, for phosphorus level 2.3 mg/dL or less., Starting on Wed01/15/25 at 1822, If dose administered, recheck phosphorus level 4 hours after last dose. Look-alike/sound-alike medication - verify indication for use. Give with a full glass of water. documented in this encounter Additional Health Concerns Assessment Noted Time PHQ-9 Depression Total Score: 0 12/28/19 10:46 AM EDT documented as of this encounter Care Teams [employer] Relationship Specialty Start Date End Date Destin Hubbard MD [address] [place] [id number] PCP - General Family Medicine 12/26/24 documented as of this encounter
--- OUTSIDE RECORDS SUMMARY | 2025-01-15 15:03 | XMS_ITS ---
Author Organization [employer] Support Name Relationship Address Phone NATALYA, LINDEN NaturalSon Unknown Unavailable HOANG, LINDEN NaturalSon Unknown Unavailable HOANG, LINDEN NaturalSon Unknown Unavailable HOANG, SHABRIA NaturalDaughter Unknown Unavail able HOANG, LINDEN NaturalSon Unknown Unavailable HOANG, LINDEN NaturalSon Unknown Unavailable HOANG, SHABRIA NaturalDaughter Unknown + HOANG, SHABRIA NaturalDaughter Unknown + HOANG, SHABRIA NaturalDaughter Unknown + HOANG, LINDEN NaturalSon Unknown Unavailable HOANG, SHABRIA Unknown Unknown [place]availabl [place] [address] [phone] HOANG, SHABRIA NaturalDaughter Unknown + HOANG, LINDEN NaturalSon Unknown Unavailable HOANG, SHABRIA Unknown Unknown [place]availabl [place] [address] [phone] HOANG, LINDEN NaturalSon Unknown Unavailable HOANG, SHABRIA Unknown Unknown [place]availabl [place] [address] [phone] HOANG, LINDEN NaturalSon Unknown Unavailable HOANG, SHABRIA Unknown Unknown [place]availabl [place] [address] [phone] HOANG, LINDEN NaturalSon Unknown Unavailable HOANG, SHABRIA Unknown Unknown [place]availabl [place] [address] [phone] HOANG, LINDEN NaturalSon Unknown Unavailable HOANG, SHABRIA Unknown Unknown [place]availabl [place] [address] [phone] HOANG, SHABRIA NaturalDaughter Unknown + KEN HOANG NaturalDaughter Unknown + LINDEN HOANG NaturalSon Unknown Unavailable KEN HOANG Unknown Unknown [place]availabl [place] [address] [phone] NATALYA LINDEN NaturalSon Unknown Unavailable CELESTINE HOANGIA Unknown Unknown Unavailabl [place] [address] [phone] NATALYA LINDEN NaturalSon Unknown Unavailable CELESTINE HOANGIA Unknown Unknown Unavailabl [place] [address] [phone] NATALYA LINDEN NaturalSon Unknown Unavailable CELESTINE HOANGIA Unknown Unknown Unavailabl [place] [address] [phone] NATALYA LINDEN NaturalSon Unknown Unavailable CELESTINE HOANGIA Unknown Unknown [place]availabl [place] [address] [phone] LINDEN HOANG NaturalSon Unknown Unavailable KEN HOANG Unknown Unknown [place]availabl [place] [address] [phone] LINDEN HOANG NaturalSon Unknown Unavailable KEN HOANG Unknown Unknown [place]availabl [place] [address] [phone] KEN HOANG NaturalDaughter Unknown + Care Team Providers Care Child Development Instructor Name Role Phone MAURICIO HUBBARD Attending Unavailable MAURICIO HUBBARD Attending Unavailable MAURICIO HUBBARD Attending Unavailable MAURICIO HUBBARD Attending Unavailable MAURICIO HUBBARD Attending Unavailable MAURICIO HUBBARD Attending Unavailable THOMAS GOLDEN Attending Unavailable PATRICIA SARKAR Attending Unavailable MAURICIO HUBBARD Referring Unavailable MAURICIO HUBBARD Primary Care Unavailable MAURICIO HUBBARD Referring Unavailable MAURICIO HUBBARD Primary Care Unavailable MAURICIO HUBBARD Referring Unavailable MAURICIO HUBBARD Primary Care Unavailable GILBERTO PEOPLES Admitting Unavailable GILBERTO PEOPLES Attending Unavailable MAURICIO HUBBARD Primary Care Unavailable GILBERTO PEOPLES Attending Unavailable GILBERTO PEOPLES Referring Unavailable MAURICIO HUBBARD Primary Care Unavailable MELISSA GUPTA Attending Unavailable MAURICIO HUBBARD Primary Care Unavailable MELISSA GUPTA Attending Unavailable NADERER, MAURICIO Primary Care Unavailable NADERER, MAURICIO Referring Unavailable NADERER, MAURICIO Primary Care Unavailable NADERER, MAURICIO Referring Unavailable NADERER, MAURICIO Primary Care Unavailable NADERER, MAURICIO Referring Unavailable NADERER, MAURICIO Primary Care Unavailable NADERER, MAURICIO Referring Unavailable NADERER, MAURICIO Primary Care Unavailable NADERER, MAURICIO Referring Unavailable NADERER, MAURICIO Primary Care Unavailable NADERER, MAURICIO Primary Care Unavailable NADERER, MAURICIO Primary Care Unavailable ALONA JOSHUA Attending Unavailable PATO VILLATORO Admitting Unavailable PATO VILLATORO Attending Unavailable ALONA JOSHUA Referring Unavailable NADERER, MAURICIO Primary Care Unavailable OOSTRA, TU [place] Consulting Unavailable EDUARDO ALLAN Consulting Unavailable OOSTRARAFAELA Consulting Unavailable HEATHER MADERA Consulting Unavailable PEDRO KENDALL S Referring Unavailable NADERER, MAURICIO Primary Care Unavailable NADERER, MAURICIO Primary Care Unavailable NETWORK, [employer] Consulting Danielle WOODALLJENNACORRINE [place] Admitting Unavailable JOSE C JAYNAODALIS [place] Attending Unavailable PROVIDER, UNKNOWN Attending Unavailable PROVIDER, UNKNOWN Admitting Unavailable Purpose PROBLEMS DATE TYPE CONDITION / CODE ATTENDING STATUS [facility] 01/16/2025 Unknown Weakness / R53.1(ICD-10) JOSE CMORIS Reddy [facility] 01/16/2025 Unknown Personal history of transient ischemic attack (TIA), and cerebral infarction without residual deficits / Z86.73(ICD-10) [facility] 01/15/2025 Unknown Migraine with au ra, not intractable, without status migrainosus / G43.109(ICD-10) [facility] 01/15/2025 Unknown Migraine without aura, not intractable, without status migrainosus / G43.009(ICD-10) [facility] 01/01/2025 Unknown 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 / I63.312(ICD-10) PATO VILLATORO [facility] 12/26/2024 Unknown Thrombocytopenia , unspecified / D69.6(ICD-10) [facility] 12/26/2024 Unknown Unspecified abnormalities of gait and mobility / R26.9(ICD-10) ULIMSAyesha [facility] 12/26/2024 Unknown Cerebral infarct ion, unspecified / I63.9(ICD-10) ALONA JOSHUA [facility] 12/26/2024 Unknown Stroke Alert / FREETEXT(AOF) ALONA JOSHUA [facility] 08/15/2024 Unknown Pain in thoracic spine / M54.6(ICD-10) [facility] 08/15/2024 Unknown Back Pain / FREETEXT(AOF) [facility] 05/12/2024 Unknown Dorsalgia, unspe cified / M54.9(ICD-10) [facility] 05/12/2024 Unknown Other chronic pa in / G89.29(ICD-10) [facility] 05/12/2024 Unknown Cervicalgia / M54.2(ICD-10) [facility] 05/12/2024 Unknown Pleurodynia / R07.81(ICD-10) [facility] 05/12/2024 Unknown Pain in right sh oulder / M25.511(ICD-10) [facility] 03/13/2024 Unknown Encounter for sc reening for malignant neoplasm, site unspecified / Z12.9(ICD-10) GILBERTO PEOPLES [facility] 03/13/2024 Unknown screening / UNK(Unknown) JAIME PEOPLES [facility] 03/09/2024 Unknown Encounter for sc reening mammogram for malignant neoplasm of breast / Z12.31(ICD-10) [facility] 02/16/2024 Unknown Encounter for sc reening for malignant neoplasm of colon / Z12.11(ICD-10) PATRICIA SARKAR Active [facility] 02/16/2024 Unknown Colon Cancer Scr eening / FREETEXT(AOF) REAGAN SARKARSSFREDI Hodge Active [facility] PROCEDURES No Procedure Records Found VITAL SIGNS No Vital Signs Records Found RESULTS BEDSIDE GLUCOSE Collected: 01/16/2025 12:19 PM Status: COMPLETED Source: [facility] TYPE CODE TESTS RESULT OUT OF RANGE REFERENCE UNITS LAB BEDG BEDSIDE GLUCOSE ???BEDG 155 High 65-99 mg/dL Performed By: #### BEDG #### [facility] ([address] [address] VIR URINALYSIS Collected: 01/16/2025 11:35 AM Status: COMPLETED Source: [facility] Order Comment: Urine receive d without preservative. Delays in transport may affect results. Interpret with caution. A clinical correlation is recommended. TYPE CODE TESTS RESULT OUT OF RANGE REFERENCE UNITS LAB COLP COLOR Yellow Yellow, Colorless LAB TURB TURBIDITY Clear Clear LAB SPGR SPECIFIC GRAVITY 1.020 1.003-1.035 NA LAB NITR NITRITE Negative Negative LAB PHUR PH,URINE 6.5 5.0-8.5 NA LAB LEST LEUKOCYTE ESTERASE Negative Negative LAB PRU PROTEIN Negative Negative LAB KET KETONES (URINE) Negative Negative LAB UROB UROBILINOGEN 0.2 eu/dL 0.2 eu/ dL, 1.0 eu/dL LAB BILEU BILIRUBIN (URINE) Negative Negative LAB BLUR BLOOD/HGB Negative Negative LAB GLUR GLUCOSE (URINE) Negative Nega tive, 250 mg/dL, >1000 mg/dL Performed By: #### UA #### [facility] ([address] [address] VIR , URINE Collected: 11:35 AM Status: COMPLETED Source: [facility] TYPE CODE TESTS RESULT OUT OF RANGE REFERENCE UNITS LAB UPREG URINE Negative Negative Performed By: #### UPREG ### # [facility] ([address] [address] VIR MR BRAIN WO CONT Observed: 01/16/2025 9:14 AM Status: COMPLETED Source: [facility] MR BRAIN WO CONT EXAM: MRI BRAIN WITHOUT CONTRAST CLINICAL HISTORY: [...] Leonard Quinn MD on 01/16/2025 10:39 AM CBC WITH AUTO DIFFERENTIAL Collected: 0 01/16/2025 4:28 AM Status: COMPLETED Source: [facility] TYPE CODE TESTS RESULT OUT OF RANGE REFERENCE UNITS LAB WBC WBC 14.0 High 4-11 x10E9/L LAB RBC RBC COUNT 3.30 Low 3.8-5.2 X10E12/L LAB HGB HEMOGLOBIN 10.1 Low 11.7-15.5 g/dL LAB HCT HEMATOCRIT 30.8 Low 35-47 % LAB MCV MCV 93 80-100 fL LAB MCH MCH 30.5 27-34 pg LAB MCHC MCHC 32.7 32-36 g/dL LAB RDW RDW 20.2 High 11.5-15 % LAB PLTC PLATELET COUNT 204 150-450 X10E9/L LAB MPV MPV 7.9 7-12 fL LAB MYEL CELLAVISION MYELOCYTE RELATIVE PERCENT BY MANUAL COUNT 1 % Result Comment: This is an a ppended report. These results have been appended to a previously preliminary verified report. LAB BAND CELLAVISION % BAND NEUTROPHILS 1 % Result Comment: This is an a ppended report. These results have been appended to a previously preliminary verified report. LAB NEUTCV CELLAVISION NEUTROPHILS RELATIVE PERCENT BY MANUAL COUNT 70 % Result Comment: This is an a ppended report. These results have been appended to a previously preliminary verified report. LAB LYMPCV CELLAVISION LYMPHOCYTES RELATIVE PERCENT BY MANUAL COUNT 23 % Result Comment: This is an a ppended report. These results have been appended to a previously preliminary verified report. LAB MONOC CELLAVISION MONOCYTES RELATIVE PERCENT BY MANUAL COUNT 5 % Result Comment: This is an a ppended report. These results have been appended to a previously preliminary verified report. LAB NRBCV CELLAVISION NUCLEATED RED BLOOD CELLS IN BLOOD BY LIGHT MICROSCOPY 1 NA Result Comment: This is an a ppended report. These results have been appended to a previously preliminary verified report. LAB ANEUTCV CELLAVISION NEUTROPHILS ABSOLUTE COUNT BY MANUAL COUNT 10.0 High 1.5-6.6 10*3/uL Result Comment: This is an a ppended report. These results have been appended to a previously preliminary verified report. LAB ALYMPCV CELLAVISION LYMPHOCYTES ABSOLUTE COUNT (10*3/UL) BY MANUAL COUNT 3.2 1.0-3.5 10*3/uL Result Comment: This is an a ppended report. These results have been appended to a previously preliminary verified report. LAB AMONOC CELLAVISION MONOCYTES ABSOLUTE COUNT (10*3/UL) IN BLOOD BY MANUAL COUNT 0.7 0.0-0.9 10*3/uL Result Comment: This is an a ppended report. These results have been appended to a previously preliminary verified report. LAB RBCMOR CELLAVISION RBC MORPHOLOGY Reviewed Result Comment: This is an a ppended report. These results have been appended to a previously preliminary verified report. LAB DTYPE CELLAVISION DIFFERENTIAL TYPE MANUAL DIFFERENTIAL Result Comment: This is an a ppended report. These results have been appended to a previously preliminary verified report. Performed By: #### CBCA #### [address] [address] VIR MAGNESIUM Collected: 01/16/2025 4:28 AM S tatus: COMPLETED Source: [facility] TYPE CODE TESTS RESULT OUT OF RANGE REFERENCE UNITS LAB MG MAGNESIUM 1.7 Low 1.8-2.6 mg/dL Performed By: #### MG #### [address] [address] VIR COMPREHENSIVE METABOLIC PANEL Collected: 2024 4:28 AM Status: COMPLETED Source: [facility] TYPE CODE TESTS RESULT OUT OF RANGE REFERENCE UNITS LAB NA SODIUM 137 134-146 mmol/L LAB K POTASSIUM 3.5 3.5-5.0 mmol/L LAB CL CHLORIDE 102 98-109 mmol/L LAB CO2 CARBON DIOXIDE 23 22-32 mmol/L LAB AGAP ANION GAP 12 5-15 mmol/L LAB BUN BLOOD UREA NITROGEN 18 5-23 mg/dL LAB CRET CREATININE 0.93 0.40-1.00 mg/dL Result Comment: METHOD TRACE ABLE TO IDMS STANDARD LAB GLU GLUCOSE 140 High 65-99 mg/dL LAB CA CALCIUM 9.0 8.5-10.5 mg/dL LAB TP TOTAL PROTEIN 5.7 Low 6.0-8.0 g/dL LAB ALB ALBUMIN 3.2 3.2-5.3 g/dL LAB ALK ALKALINE PHOSPHATASE 65 39-130 U/L LAB AST AST 17 <=41 U/L LAB ALT ALT 39 High <=31 U/L LAB TBIL BILIRUBIN,TOTAL 0.6 0.3-1.2 mg/dL LAB EGFR EGFR (CKD-EPI) NON-RACE DEPENDENT 76 >=60 ml/min/1 .73sq.m Result Comment: eGFR not rep orted due to non-numeric value for Creatinine. Reported eGFR is based on the CKD-EPI 2020 equation that does not use a race coefficient. Performed By: #### CMP #### [facility] ([address] [address] VIR PROCALCITONIN Collected: 01/16/2025 4:28 AM Status: COMPLETED Source: [facility] Order Comment: <0.50 ng/mL - Low risk of severe sepsis and/or septic shock. <2.00 ng/mL - Recommend retesting within 6-24 hours. >2.00 ng/mL - High risk of sepsis and/or septic shock. TYPE CODE TESTS RESULT OUT OF RANGE REFERENCE UNITS LAB PCAL PROCALCITONIN 0.06 High <0.05 ng/mL Performed By: #### PCAL #### [facility] ([address] [address] VIR LIPID PROFILE Collected: 01/16/2025 4:28 AM Status: COMPLETED Source: [facility] TYPE CODE TESTS RESULT OUT OF RANGE REFERENCE UNITS LAB CHOL CHOLESTEROL 170 150-200 mg/dL LAB TRIG TRIGLYCERIDE 97 27-150 mg/dL LAB HDL HDL CHOLESTEROL 71 >39 mg/dL Result Comment: HDL <40 mg/d L - High Risk HDL > or = 40mg/dL- Desirable HDL >60 mg/dL - Negative Risk LAB LDL LDL (CALC) 80 <130 mg/dL Result Comment: LDL <100 mg/ dL - Desirable LDL >160 mg/dL - High Risk LAB CHDL CHOLESTEROL:HDL 2.4 1.0-5.0 NA LAB VLDL VERY LOW LIPOPROTEIN 19 0-30 mg/dL Performed By: #### LIPR #### [facility] ([facility]) [address] [place] [address] VIR HEMOGLOBIN A1C Collected: 01/16/2025 4:28 AM S tatus: COMPLETED Source: [facility] TYPE CODE TESTS RESULT OUT OF RANGE REFERENCE UNITS LAB HBA1C HEMOGLOBIN A1C 5.6 4.4-5.6 % Result Comment: ADA Guidelin es Result HgbA1c Normal : less than 5.7 % Prediabetes : 5.7 % to 6.4 % Diabetes : > 6.4 % Use with caution in patients with abnormal hemoglobin variants as the half-life of red blood cells and in vivo glycation rates are affected. LAB EAG EST. AVERAGE GLUCOSE 114 mg/dL Performed By: #### HA1C #### [facility] ([facility]) [address] [place] [address] VIR IRON AND TIBC Collected: 4:28 AM Status: COMPLETED Source: [facility] TYPE CODE TESTS RESULT OUT OF RANGE REFERENCE UNITS LAB FE IRON 84 50-170 ug/dL LAB TRF TRANSFERRIN 216 168-336 mg/dL LAB TIBC IRON BINDING 302 250-425 ug/dL LAB SAT IRON SATURATION 28 15-50 % SATURATION Performed By: #### FEPR #### [facility] ([facility]) [address] [place] [address] VIR FERRITIN Collected: 01/16/2025 4:28 AM S tatus: COMPLETED Source: [facility] TYPE CODE TESTS RESULT OUT OF RANGE REFERENCE UNITS LAB FERR FERRITIN 90 11-307 ng/mL Performed By: #### FERR #### [facility] ([facility]) [address] [place] [address] VIR BEDSIDE GLUCOSE Collected: 01/15/2025 9:55 PM Status: COMPLETED Source: [facility] TYPE CODE TESTS RESULT OUT OF RANGE REFERENCE UNITS LAB BEDG BEDSIDE GLUCOSE ???BEDG 225 High 65-99 mg/dL Performed By: #### BEDG #### [facility] ([address] [address] VIR CBC WITH AUTO DIFFERENTIAL Collected: 3:20 PM Status: COMPLETED Source: [facility] TYPE CODE TESTS RESULT OUT OF RANGE REFERENCE UNITS LAB WBC WBC 11.5 High 4-11 x10E9/L LAB RBC RBC COUNT 3.48 Low 3.8-5.2 X10E12/L LAB HGB HEMOGLOBIN 10.4 Low 11.7-15.5 g/dL LAB HCT HEMATOCRIT 32.1 Low 35-47 % LAB MCV MCV 92 80-100 fL LAB MCH MCH 29.8 27-34 pg LAB MCHC MCHC 32.3 32-36 g/dL LAB RDW RDW 20.0 High 11.5-15 % LAB PLTC PLATELET COUNT 218 150-450 X10E9/L LAB MPV MPV 7.4 7-12 fL LAB MYEL CELLAVISION MYELOCYTE RELATIVE PERCENT BY MANUAL COUNT 1 % Result Comment: This is an a ppended report. These results have been appended to a previously preliminary verified report. LAB BAND CELLAVISION % BAND NEUTROPHILS 3 % Result Comment: This is an a ppended report. These results have been appended to a previously preliminary verified report. LAB NEUTCV CELLAVISION NEUTROPHILS RELATIVE PERCENT BY MANUAL COUNT 77 % Result Comment: This is an a ppended report. These results have been appended to a previously preliminary verified report. LAB LYMPCV CELLAVISION LYMPHOCYTES RELATIVE PERCENT BY MANUAL COUNT 15 % Result Comment: This is an a ppended report. These results have been appended to a previously preliminary verified report. LAB MONOC CELLAVISION MONOCYTES RELATIVE PERCENT BY MANUAL COUNT 1 % Result Comment: This is an a ppended report. These results have been appended to a previously preliminary verified report. LAB EOSCV CELLAVISION EOSINOPHILS PERCENT BY MANUAL COUNT 1 % Result Comment: This is an a ppended report. These results have been appended to a previously preliminary verified report. LAB LREAC CELLAVISION ATYPICAL LYMPHOCYTES RELATIVE PERCENT BY MANUAL COUNT 2 % Result Comment: This is an a ppended report. These results have been appended to a previously preliminary verified report. LAB NRBCV CELLAVISION NUCLEATED RED BLOOD CELLS IN BLOOD BY LIGHT MICROSCOPY 1 NA Result Comment: This is an a ppended report. These results have been appended to a previously preliminary verified report. LAB ANEUTCV CELLAVISION NEUTROPHILS ABSOLUTE COUNT BY MANUAL COUNT 9.3 High 1.5-6.6 10*3/uL Result Comment: This is an a ppended report. These results have been appended to a previously preliminary verified report. LAB ALYMPCV CELLAVISION LYMPHOCYTES ABSOLUTE COUNT (10*3/UL) BY MANUAL COUNT 1.9 1.0-3.5 10*3/uL Result Comment: This is an a ppended report. These results have been appended to a previously preliminary verified report. LAB AMONOC CELLAVISION MONOCYTES ABSOLUTE COUNT (10*3/UL) IN BLOOD BY MANUAL COUNT 0.1 0.0-0.9 10*3/uL Result Comment: This is an a ppended report. These results have been appended to a previously preliminary verified report. LAB AEOSCV CELLAVISION EOSINOPHILS ABSOLUTE COUNT (10*3/UL) BY MANUAL COUNT 0.1 0.0-0.4 10*3/uL Result Comment: This is an a ppended report. These results have been appended to a previously preliminary verified report. LAB HYPO CELLAVISION HYPOCHROMIA IN BLOOD BY LIGHT MICROSCOPY 1+ Result Comment: This is an a ppended report. These results have been appended to a previously preliminary verified report. LAB POLY CELLAVISION POLYCHROMASIA IN BLOOD BY LIGHT MICROSCOPY 1+ Result Comment: This is an a ppended report. These results have been appended to a previously preliminary verified report. LAB TEAR CELLAVISION DACROCYTES IN BLOOD BY LIGHT MICROSCOPY 1+ Result Comment: This is an a ppended report. These results have been appended to a previously preliminary verified report. LAB DTYPE CELLAVISION DIFFERENTIAL TYPE MANUAL DIFFERENTIAL Result Comment: This is an a ppended report. These results have been appended to a previously preliminary verified report. Performed By: #### CBCA #### [place] [address] VIR PROTIME AND INR Collected: 01/15/2025 3:20 PM Status: COMPLETED Source: [facility] TYPE CODE TESTS RESULT OUT OF RANGE REFERENCE UNITS LAB PROX PROTIME 12.2 9.8-13.2 sec LAB INR INR 1.1 0.9-1.2 NA Performed By: #### PINR #### [address] [address] VIR APTT Collected: 01/15/2025 3:20 PM S tatus: COMPLETED Source: [facility] TYPE CODE TESTS RESULT OUT OF RANGE REFERENCE UNITS LAB PTT APTT 25 Low 26-37 sec Performed By: #### PTT #### [address] [address] VIR BASIC METABOLIC PANEL Collected: 01/15/2025 3:2 0 PM Status: COMPLETED Source: [facility] TYPE CODE TESTS RESULT OUT OF RANGE REFERENCE UNITS LAB NA SODIUM 135 134-146 mmol/L LAB K POTASSIUM 4.3 3.5-5.0 mmol/L LAB CL CHLORIDE 101 98-109 mmol/L LAB CO2 CARBON DIOXIDE 25 22-32 mmol/L LAB AGAP ANION GAP 9 5-15 mmol/L LAB BUN BLOOD UREA NITROGEN 19 5-23 mg/dL LAB CRET CREATININE 0.85 0.40-1.00 mg/dL Result Comment: METHOD TRACE ABLE TO IDMS STANDARD LAB GLU GLUCOSE 190 High 65-99 mg/dL LAB CA CALCIUM 8.3 Low 8.5-10.5 mg/dL LAB EGFR EGFR (CKD-EPI) NON-RACE DEPENDENT 85 >=60 ml/min/1. 73sq.m Result Comment: eGFR not rep orted due to non-numeric value for Creatinine. Reported eGFR is based on the CKD-EPI 2020 equation that does not use a race coefficient. Performed By: #### BMP #### [address] [address] VIR TROPONIN I, HIGH SENSITIVITY 0 HOUR Collected: 01/15/2025 3:20 PM Status: COMPLETED Source: [facility] TYPE CODE TESTS RESULT OUT OF RANGE REFERENCE UNITS LAB TNIHS TROPONIN I, HIGH SENSITIVITY 9 <16 ng/L Performed By: #### TNIHS0 ## ## [address] [address] VIR PHOSPHORUS Collected: 01/15/2025 3:20 PM S tatus: COMPLETED Source: [facility] TYPE CODE TESTS RESULT OUT OF RANGE REFERENCE UNITS LAB PHOS PHOSPHORUS 2.9 2.4-4.9 mg/dL Performed By: #### PHOS #### [address] [address] VIR THYROID PROFILE INCLUDES TSH FT4 Collected: 01/15/2025 3:20 PM Status: COMPLETED Source: [facility] TYPE CODE TESTS RESULT OUT OF RANGE REFERENCE UNITS LAB FT4 FREE T4 0.89 0.61-1.60 ng/dL LAB TSH TSH 0.46 Low 0.49-4.67 uIU/mL Performed By: #### THYR #### [facility] [address] [place] [address]A CAROTID Observed: 01/15/2025 3:13 PM Status: COMPLETED Source: [facility] CT CTA CAROTID CT ANGIOGRAM OF THE NECK CLINICAL INFORMATION: stroke like symptoms. TECHNIQUE: CT angiogram performed following intravenous administration of nonionic intravenous contrast. Coronal and sagittal and 3-D volume rendered maximum intensity projection images generated and reviewed under concurrent physician supervision. Automated exposure control utilized. The [place] Symptomatic Carotid Endarterectomy Trial (NASCET) method for [...] Quinn MD on 01/15/2025 4:[address]A HEAD Observed: 01/15/2025 3:13 PM Status: COMPLETED Source: [facility] CT CTA HEAD EXAM:CT CTA HEAD INDICATION: Left-sided facial droop [...] ACAs: Normal bilaterally. AComm: Normal P-Comms and integration software engineer: integration software engineer are patent bilaterally. Posterior communicating arteries are not well visualized. Vertebral arteries: Normal to the confluence with the basilar artery. Basilar artery: Normal. IMPRESSION: No large vessel occlusion, critical stenosis, or sizable aneurysm. Finalized by Gilberto Morales on 01/15/2025 4:[address] BRAIN WO CONT STROKE ALERT Observed: 01/15/2025 3:12 PM Status: COMPLETED Source: [facility] CT BRAIN WO CONT STROKE ALER T STUDY: CT BRAIN WO CONT STROKE ALERT [...] by Dillon Escobar on 01/15/2025 3:31 PM BEDSIDE GLUCOSE Collected: 01/15/2025 3:06 PM Status: COMPLETED Source: [facility] TYPE CODE TESTS RESULT OUT OF RANGE REFERENCE UNITS LAB BEDG BEDSIDE GLUCOSE ???BEDG 174 High 65-99 mg/dL Performed By: #### BEDG #### [facility] ([address] [place] [address] VIR FIBRINOGEN Collected: 01/05/2025 4:33 AM S tatus: COMPLETED Source: [facility] TYPE CODE TESTS RESULT OUT OF RANGE REFERENCE UNITS LAB FIBR FIBRINOGEN 194 190-480 mg/dL Performed By: #### FIBR #### [facility] (TT) [address] [place] [address] VIR CBC WITH AUTO DIFFERENTIAL Collected: 01/05/2025 4:33 AM Status: COMPLETED Source: [facility] TYPE CODE TESTS RESULT OUT OF RANGE REFERENCE UNITS LAB WBC WBC 14.6 High 4-11 x10E9/L LAB RBC RBC COUNT 3.16 Low 3.8-5.2 X10E12/ L LAB HGB HEMOGLOBIN 9.1 Low 11.7-15.5 g/dL LAB HCT HEMATOCRIT 27.9 Low 35-47 % LAB MCV MCV 88 80-100 fL LAB MCH MCH 28.7 27-34 pg LAB MCHC MCHC 32.5 32-36 g/dL LAB RDW RDW 16.6 High 11.5-15 % LAB PLTC PLATELET COUNT 177 150-450 X10E9/L LAB MPV MPV 8.0 7-12 fL LAB META CELLAVISION METAMYELOCYTES RELATIVE PERCENT BY MANUAL COUNT 1 % Result Comment: This is an a ppended report. These results have been appended to a previously preliminary verified report. LAB BAND CELLAVISION % BAND NEUTROPHILS 1 % Result Comment: This is an a ppended report. These results have been appended to a previously preliminary verified report. LAB NEUTCV CELLAVISION NEUTROPHILS RELATIVE PERCENT BY MANUAL COUNT 78 % Result Comment: This is an a ppended report. These results have been appended to a previously preliminary verified report. LAB LYMPCV CELLAVISION LYMPHOCYTES RELATIVE PERCENT BY MANUAL COUNT 15 % Result Comment: This is an a ppended report. These results have been appended to a previously preliminary verified report. LAB MONOC CELLAVISION MONOCYTES RELATIVE PERCENT BY MANUAL COUNT 6 % Result Comment: This is an a ppended report. These results have been appended to a previously preliminary verified report. LAB NRBCV CELLAVISION NUCLEATED RED BLOOD CELLS IN BLOOD BY LIGHT MICROSCOPY 3 NA Result Comment: This is an a ppended report. These results have been appended to a previously preliminary verified report. LAB ANEUTCV CELLAVISION NEUTROPHILS ABSOLUTE COUNT BY MANUAL COUNT 11.4 High 1.5-6.6 10*3/uL Result Comment: This is an a ppended report. These results have been appended to a previously preliminary verified report. LAB ALYMPCV CELLAVISION LYMPHOCYTES ABSOLUTE COUNT (10*3/UL) BY MANUAL COUNT 2.1 1.0-3.5 10*3/uL Result Comment: This is an a ppended report. These results have been appended to a previously preliminary verified report. LAB AMONOC CELLAVISION MONOCYTES ABSOLUTE COUNT (10*3/UL) IN BLOOD BY MANUAL COUNT 0.9 0.0-0.9 10*3/uL Result Comment: This is an a ppended report. These results have been appended to a previously preliminary verified report. LAB POLY CELLAVISION POLYCHROMASIA IN BLOOD BY LIGHT MICROSCOPY 1+ Result Comment: This is an a ppended report. These results have been appended to a previously preliminary verified report. LAB DTYPE CELLAVISION DIFFERENTIAL TYPE CELLAVISION DIFFERENTIAL Result Comment: This is an a ppended report. These results have been appended to a previously preliminary verified report. Performed By: #### CBCA #### [facility] ([facility]) [address] [place] [id number] VIR IONIZED CALCIUM Collected: 01/05/2025 4:33 AM Status: COMPLETED Source: [facility] TYPE CODE TESTS RESULT OUT OF RANGE REFERENCE UNITS LAB ICA IONIZED CALCIUM - ICAN 5.0 4.5-5.3 mg/dL Performed By: #### ICA #### [facility] ([facility]) [address] [place] [address] VIR COMPREHENSIVE METABOLIC PANEL Collected: 2024 4:33 AM Status: COMPLETED Source: [facility] TYPE CODE TESTS RESULT OUT OF RANGE REFERENCE UNITS LAB NA SODIUM 140 134-146 mmol/L LAB K POTASSIUM 4.2 3.5-5.0 mmol/L LAB CL CHLORIDE 102 98-109 mmol/L LAB CO2 CARBON DIOXIDE 33 High 22-32 mmol/L LAB AGAP ANION GAP 5 5-15 mmol/L LAB BUN BLOOD UREA NITROGEN 21 5-23 mg/dL LAB CRET CREATININE 0.83 0.40-1.00 mg/dL Result Comment: METHOD TRACE ABLE TO IDMS STANDARD LAB GLU GLUCOSE 118 High 65-99 mg/dL LAB CA CALCIUM 8.8 8.5-10.5 mg/dL LAB TP TOTAL PROTEIN 5.1 Low 6.0-8.0 g/dL LAB ALB ALBUMIN 3.2 3.2-5.3 g/dL LAB ALK ALKALINE PHOSPHATASE 50 39-130 U/L LAB AST AST 19 <=41 U/L LAB ALT ALT 29 <=31 U/L LAB TBIL BILIRUBIN,TOTAL 0.3 0.3-1.2 mg/dL LAB EGFR EGFR (CKD-EPI) NON-RACE DEPENDENT 87 >=60 ml/min/1 .73sq.m Result Comment: Reported eGF R is based on the CKD-EPI 2020 equation that does not use a race coefficient. Performed By: #### CMP #### [facility] ([facility]) [address] [place] [address] VIR COMPREHENSIVE METABOLIC PANEL Collected: 2024 5:22 AM Status: COMPLETED Source: [facility] TYPE CODE TESTS RESULT OUT OF RANGE REFERENCE UNITS LAB NA SODIUM 139 134-146 mmol/L LAB K POTASSIUM 4.0 3.5-5.0 mmol/L LAB CL CHLORIDE 103 98-109 mmol/L LAB CO2 CARBON DIOXIDE 31 22-32 mmol/L LAB AGAP ANION GAP 5 5-15 mmol/L LAB BUN BLOOD UREA NITROGEN 21 5-23 mg/dL LAB CRET CREATININE 0.97 0.40-1.00 mg/dL Result Comment: METHOD TRACE ABLE TO IDMS STANDARD LAB GLU GLUCOSE 92 65-99 mg/dL LAB CA CALCIUM 8.9 8.5-10.5 mg/dL LAB TP TOTAL PROTEIN 5.1 Low 6.0-8.0 g/dL LAB ALB ALBUMIN 3.3 3.2-5.3 g/dL LAB ALK ALKALINE PHOSPHATASE 49 39-130 U/L LAB AST AST 15 <=41 U/L LAB ALT ALT 19 <=31 U/L LAB TBIL BILIRUBIN,TOTAL 0.3 0.3-1.2 mg/dL LAB EGFR EGFR (CKD-EPI) NON-RACE DEPENDENT 73 >=60 ml/min/1 .73sq.m Result Comment: Reported eGF R is based on the CKD-EPI 2020 equation that does not use a race coefficient. Performed By: #### CMP #### [facility] ([facility]) [address] [place] [id number] VIR LDH Collected: 01/04/2025 5:22 AM S tatus: COMPLETED Source: [facility] TYPE CODE TESTS RESULT OUT OF RANGE REFERENCE UNITS LAB LDH LDH 173 100-235 U/L Performed By: #### LDH #### [facility] ([facility]) [address] [place] [phone] VIR FIBRINOGEN Collected: 01/04/2025 5:22 AM S tatus: COMPLETED Source: [facility] TYPE CODE TESTS RESULT OUT OF RANGE REFERENCE UNITS LAB FIBR FIBRINOGEN 205 190-480 mg/dL Performed By: #### FIBR #### [facility] ([facility]) [address] [place] [phone] VIR CBC WITH AUTO DIFFERENTIAL Collected: 01/04/2025 5:22 AM Status: COMPLETED Source: [facility] TYPE CODE TESTS RESULT OUT OF RANGE REFERENCE UNITS LAB WBC WBC 14.9 High 4-11 x10E9/L LAB RBC RBC COUNT 3.20 Low 3.8-5.2 X10E12/ L LAB HGB HEMOGLOBIN 9.3 Low 11.7-15.5 g/dL LAB HCT HEMATOCRIT 28.3 Low 35-47 % LAB MCV MCV 89 80-100 fL LAB MCH MCH 29.2 27-34 pg LAB MCHC MCHC 33.0 32-36 g/dL LAB RDW RDW 16.4 High 11.5-15 % LAB PLTC PLATELET COUNT 163 150-450 X10E9/L LAB MPV MPV 8.4 7-12 fL LAB META CELLAVISION METAMYELOCYTES RELATIVE PERCENT BY MANUAL COUNT 2 % Result Comment: This is an a ppended report. These results have been appended to a previously preliminary verified report. LAB BAND CELLAVISION % BAND NEUTROPHILS 2 % Result Comment: This is an a ppended report. These results have been appended to a previously preliminary verified report. LAB NEUTCV CELLAVISION NEUTROPHILS RELATIVE PERCENT BY MANUAL COUNT 77 % Result Comment: This is an a ppended report. These results have been appended to a previously preliminary verified report. LAB LYMPCV CELLAVISION LYMPHOCYTES RELATIVE PERCENT BY MANUAL COUNT 18 % Result Comment: This is an a ppended report. These results have been appended to a previously preliminary verified report. LAB MONOC CELLAVISION MONOCYTES RELATIVE PERCENT BY MANUAL COUNT 1 % Result Comment: This is an a ppended report. These results have been appended to a previously preliminary verified report. LAB NRBCV CELLAVISION NUCLEATED RED BLOOD CELLS IN BLOOD BY LIGHT MICROSCOPY 2 NA Result Comment: This is an a ppended report. These results have been appended to a previously preliminary verified report. LAB ANEUTCV CELLAVISION NEUTROPHILS ABSOLUTE COUNT BY MANUAL COUNT 11.8 10*3/uL Result Comment: This is an a ppended report. These results have been appended to a previously preliminary verified report. LAB ALYMPCV CELLAVISION LYMPHOCYTES ABSOLUTE COUNT (10*3/UL) BY MANUAL COUNT 2.7 10*3/uL Result Comment: This is an a ppended report. These results have been appended to a previously preliminary verified report. LAB AMONOC CELLAVISION MONOCYTES ABSOLUTE COUNT (10*3/UL) IN BLOOD BY MANUAL COUNT 0.1 10*3/uL Result Comment: This is an a ppended report. These results have been appended to a previously preliminary verified report. LAB POLY CELLAVISION POLYCHROMASIA IN BLOOD BY LIGHT MICROSCOPY 1+ Result Comment: This is an a ppended report. These results have been appended to a previously preliminary verified report. LAB FRAG CELLAVISION RBC FRAGMENTS 1+ Result Comment: This is an a ppended report. These results have been appended to a previously preliminary verified report. LAB DTYPE CELLAVISION DIFFERENTIAL TYPE MANUAL DIFFERENTIAL Result Comment: This is an a ppended report. These results have been appended to a previously preliminary verified report. Performed By: #### CBCA #### [facility] ([facility]) [address] [place] [address] VIR IONIZED CALCIUM Collected: 01/04/2025 5:22 AM Status: COMPLETED Source: [facility] TYPE CODE TESTS RESULT OUT OF RANGE REFERENCE UNITS LAB ICA IONIZED CALCIUM - ICAN 4.8 4.5-5.3 mg/dL Performed By: #### ICA #### [facility] ([facility]) [address] [place] [address] VIR HEPARIN ANTI XA, UNFRACTIONATED Collect ed: 01/03/2025 7:51 AM Status: COMPLETED Source: [facility] TYPE CODE TESTS RESULT OUT OF RANGE REFERENCE UNITS LAB UFHXA ANTI XA UFH 0.68 0.30-0.70 IU/mL Result Comment: Optimal time for testing is 6 hrs post dosage This test is specific for monitoring patients on UFH, and is not recommended for use with other Anti-Xa medications. Performed By: #### UFHXA ### # [facility] ([facility]) [facility] [place] [id number] VIR FIBRINOGEN Collected: 01/03/2025 6:27 AM S tatus: COMPLETED Source: [facility] TYPE CODE TESTS RESULT OUT OF RANGE REFERENCE UNITS LAB FIBR FIBRINOGEN 205 190-480 mg/dL Performed By: #### FIBR #### [facility] ([facility]) [facility] [place] [address] VIR CBC WITH AUTO DIFFERENTIAL Collected: 6:27 AM Status: COMPLETED Source: [facility] TYPE CODE TESTS RESULT OUT OF RANGE REFERENCE UNITS LAB WBC WBC 15.7 High 4-11 x10E9/L LAB RBC RBC COUNT 3.26 Low 3.8-5.2 X10E12/L LAB HGB HEMOGLOBIN 9.4 Low 11.7-15.5 g/dL LAB HCT HEMATOCRIT 28.5 Low 35-47 % LAB MCV MCV 88 80-100 fL LAB MCH MCH 28.9 27-34 pg LAB MCHC MCHC 33.0 32-36 g/dL LAB RDW RDW 16.1 High 11.5-15 % LAB PLTC PLATELET COUNT 142 Low 150-450 X10E9/L LAB MPV MPV 8.6 7-12 fL LAB MYEL CELLAVISION MYELOCYTE RELATIVE PERCENT BY MANUAL COUNT 2 % Result Comment: This is an a ppended report. These results have been appended to a previously preliminary verified report. LAB BAND CELLAVISION % BAND NEUTROPHILS 4 % Result Comment: This is an a ppended report. These results have been appended to a previously preliminary verified report. LAB NEUTCV CELLAVISION NEUTROPHILS RELATIVE PERCENT BY MANUAL COUNT 88 % Result Comment: This is an a ppended report. These results have been appended to a previously preliminary verified report. LAB LYMPCV CELLAVISION LYMPHOCYTES RELATIVE PERCENT BY MANUAL COUNT 2 % Result Comment: This is an a ppended report. These results have been appended to a previously preliminary verified report. LAB MONOC CELLAVISION MONOCYTES RELATIVE PERCENT BY MANUAL COUNT 4 % Result Comment: This is an a ppended report. These results have been appended to a previously preliminary verified report. LAB ANEUTCV CELLAVISION NEUTROPHILS ABSOLUTE COUNT BY MANUAL COUNT 14.5 10*3/uL Result Comment: This is an a ppended report. These results have been appended to a previously preliminary verified report. LAB ALYMPCV CELLAVISION LYMPHOCYTES ABSOLUTE COUNT (10*3/UL) BY MANUAL COUNT 0.3 10*3/uL Result Comment: This is an a ppended report. These results have been appended to a previously preliminary verified report. LAB AMONOC CELLAVISION MONOCYTES ABSOLUTE COUNT (10*3/UL) IN BLOOD BY MANUAL COUNT 0.6 10*3/uL Result Comment: This is an a ppended report. These results have been appended to a previously preliminary verified report. LAB POLY CELLAVISION POLYCHROMASIA IN BLOOD BY LIGHT MICROSCOPY 1+ Result Comment: This is an a ppended report. These results have been appended to a previously preliminary verified report. LAB DTYPE CELLAVISION DIFFERENTIAL TYPE MANUAL DIFFERENTIAL Result Comment: This is an a ppended report. These results have been appended to a previously preliminary verified report. Performed By: #### CBCA #### [facility] (TT) [address] [place] [address] VIR HEPARIN ANTI XA, UNFRACTIONATED Collect ed: 01/03/2025 6:27 AM Status: COMPLETED Source: [facility] TYPE CODE TESTS RESULT OUT OF RANGE REFERENCE UNITS LAB UFHXA ANTI XA UFH 0.93 High Alert 0.30-0.70 IU/mL Result Comment: Optimal time for testing is 6 hrs post dosage This test is specific for monitoring patients on UFH, and is not recommended for use with other Anti-Xa medications. Performed By: #### UFHXA ### # [facility] ([facility]) [address] [place] [address] VIR IONIZED CALCIUM Collected: 01/03/2025 6:27 AM Status: COMPLETED Source: [facility] TYPE CODE TESTS RESULT OUT OF RANGE REFERENCE UNITS LAB ICA IONIZED CALCIUM - ICAN 5.1 4.5-5.3 mg/dL Performed By: #### ICA #### [facility] ([facility]) [address] [place] [address] VIR COMPREHENSIVE METABOLIC PANEL Collected: 2024 6:27 AM Status: COMPLETED Source: [facility] TYPE CODE TESTS RESULT OUT OF RANGE REFERENCE UNITS LAB NA SODIUM 137 134-146 mmol/L LAB K POTASSIUM 4.2 3.5-5.0 mmol/L LAB CL CHLORIDE 104 98-109 mmol/L LAB CO2 CARBON DIOXIDE 30 22-32 mmol/L LAB AGAP ANION GAP 3 Low 5-15 mmol/L LAB BUN BLOOD UREA NITROGEN 20 5-23 mg/dL LAB CRET CREATININE 0.93 0.40-1.00 mg/dL Result Comment: METHOD TRACE ABLE TO IDMS STANDARD LAB GLU GLUCOSE 127 High 65-99 mg/dL LAB CA CALCIUM 9.0 8.5-10.5 mg/dL LAB TP TOTAL PROTEIN 5.2 Low 6.0-8.0 g/dL LAB ALB ALBUMIN 3.2 3.2-5.3 g/dL LAB ALK ALKALINE PHOSPHATASE 52 39-130 U/L LAB AST AST 14 <=41 U/L LAB ALT ALT 18 <=31 U/L LAB TBIL BILIRUBIN,TOTAL 0.3 0.3-1.2 mg/dL LAB EGFR EGFR (CKD-EPI) NON-RACE DEPENDENT 76 >=60 ml/min/1 .73sq.m Result Comment: Reported eGF R is based on the CKD-EPI 2020 equation that does not use a race coefficient. Performed By: #### CMP #### [facility] ([facility]) [address] [place] [address] VIR LDH Collected: 01/03/2025 6:27 AM S tatus: COMPLETED Source: [facility] TYPE CODE TESTS RESULT OUT OF RANGE REFERENCE UNITS LAB LDH LDH 153 100-235 U/L Performed By: #### LDH #### [facility] ([facility]) [address] [place] [address] [place] [address] VIR HEPARIN ANTI XA, UNFRACTIONATED Collect ed: 01/03/2025 12:19 AM Status: COMPLETED Source: [facility] TYPE CODE TESTS RESULT OUT OF RANGE REFERENCE UNITS LAB UFHXA ANTI XA UFH 0.64 0.30-0.70 IU/mL Result Comment: Optimal time for testing is 6 hrs post dosage This test is specific for monitoring patients on UFH, and is not recommended for use with other Anti-Xa medications. Performed By: #### UFHXA ### # [facility] ([facility]) [address] [place] [address] [address] [place] [address] VIR HEPARIN ANTI XA, UNFRACTIONATED Collect ed: 01/02/2025 8:44 PM Status: COMPLETED Source: [facility] TYPE [facility] TESTS RESULT OUT OF RANGE REFERENCE UNITS LAB UFHXA ANTI XA UFH 0.31 0.30-0.70 IU/mL Result Comment: Optimal time for testing is 6 hrs post dosage This test is specific for monitoring patients on UFH, and is not recommended for use with other Anti-Xa medications. Performed By: #### UFHXA ### # [facility] ([facility]) [address] [place] [address] [address] [place] [phone] VIR HEPARIN ANTI XA, UNFRACTIONATED Collect ed: 01/02/2025 6:00 PM Status: COMPLETED Source: [facility] TYPE CODE TESTS RESULT OUT OF RANGE REFERENCE UNITS LAB UFHXA ANTI XA UFH 0.05 Low 0.30-0.70 IU/mL Result Comment: Optimal time for testing is 6 hrs post dosage This test is specific for monitoring patients on UFH, and is not recommended for use with other Anti-Xa medications. Performed By: #### UFHXA ### # [facility] ([facility]) [address] [place] [address] [address] [place] [address] VIR HEPARIN ANTI XA, UNFRACTIONATED Collect ed: 01/02/2025 11:11 AM Status: COMPLETED Source: [facility] TYPE CODE TESTS RESULT OUT OF RANGE REFERENCE UNITS LAB UFHXA ANTI XA UFH 0.54 0.30-0.70 IU/mL Result Comment: Optimal time for testing is 6 hrs post dosage This test is specific for monitoring patients on UFH, and is not recommended for use with other Anti-Xa medications. Performed By: #### UFHXA ### # [facility] (TT) [address] [place] [address] VIR CBC WITH AUTO DIFFERENTIAL Collected: 01/02/2025 2:47 AM Status: COMPLETED Source: [facility] TYPE CODE TESTS RESULT OUT OF RANGE REFERENCE UNITS LAB WBC WBC 16.8 High 4-11 x10E9/L LAB RBC RBC COUNT 3.29 Low 3.8-5.2 X10E12/ L LAB HGB HEMOGLOBIN 9.5 Low 11.7-15.5 g/dL LAB HCT HEMATOCRIT 28.9 Low 35-47 % LAB MCV MCV 88 80-100 fL LAB MCH MCH 29.0 27-34 pg LAB MCHC MCHC 33.0 32-36 g/dL LAB RDW RDW 15.7 High 11.5-15 % LAB PLTC PLATELET COUNT 122 Low 150-450 X10E9/L LAB MPV MPV 9.2 7-12 fL LAB MYEL CELLAVISION MYELOCYTE RELATIVE PERCENT BY MANUAL COUNT 2 % Result Comment: This is an a ppended report. These results have been appended to a previously preliminary verified report. LAB META CELLAVISION METAMYELOCYTES RELATIVE PERCENT BY MANUAL COUNT 1 % Result Comment: This is an a ppended report. These results have been appended to a previously preliminary verified report. LAB BAND CELLAVISION % BAND NEUTROPHILS 1 % Result Comment: This is an a ppended report. These results have been appended to a previously preliminary verified report. LAB NEUTCV CELLAVISION NEUTROPHILS RELATIVE PERCENT BY MANUAL COUNT 68 % Result Comment: This is an a ppended report. These results have been appended to a previously preliminary verified report. LAB LYMPCV CELLAVISION LYMPHOCYTES RELATIVE PERCENT BY MANUAL COUNT 23 % Result Comment: This is an a ppended report. These results have been appended to a previously preliminary verified report. LAB MONOC CELLAVISION MONOCYTES RELATIVE PERCENT BY MANUAL COUNT 5 % Result Comment: This is an a ppended report. These results have been appended to a previously preliminary verified report. LAB ANEUTCV CELLAVISION NEUTROPHILS ABSOLUTE COUNT BY MANUAL COUNT 11.7 10*3/uL Result Comment: This is an a ppended report. These results have been appended to a previously preliminary verified report. LAB ALYMPCV CELLAVISION LYMPHOCYTES ABSOLUTE COUNT (10*3/UL) BY MANUAL COUNT 3.9 10*3/uL Result Comment: This is an a ppended report. These results have been appended to a previously preliminary verified report. LAB AMONOC CELLAVISION MONOCYTES ABSOLUTE COUNT (10*3/UL) IN BLOOD BY MANUAL COUNT 0.8 10*3/uL Result Comment: This is an a ppended report. These results have been appended to a previously preliminary verified report. LAB POLY CELLAVISION POLYCHROMASIA IN BLOOD BY LIGHT MICROSCOPY 1+ Result Comment: This is an a ppended report. These results have been appended to a previously preliminary verified report. LAB FRAG CELLAVISION RBC FRAGMENTS 1+ Result Comment: This is an a ppended report. These results have been appended to a previously preliminary verified report. LAB DTYPE CELLAVISION DIFFERENTIAL TYPE CELLAVISION DIFFERENTIAL Result Comment: This is an a ppended report. These results have been appended to a previously preliminary verified report. Performed By: #### CBCA #### [facility] ([facility]) [address] [place] [address] VIR FIBRINOGEN Collected: 01/02/2025 2:47 AM S tatus: COMPLETED Source: [facility] TYPE CODE TESTS RESULT OUT OF RANGE REFERENCE UNITS LAB FIBR FIBRINOGEN 189 Low 190-480 mg/dL Performed By: #### FIBR #### [facility] ([facility]) [address] [place] [address] VIR HEPARIN ANTI XA, UNFRACTIONATED Collect ed: 01/02/2025 2:47 AM Status: COMPLETED Source: [facility] TYPE CODE TESTS RESULT OUT OF RANGE REFERENCE UNITS LAB UFHXA ANTI XA UFH 0.87 High 0.30-0.70 IU/mL Result Comment: Optimal time for testing is 6 hrs post dosage This test is specific for monitoring patients on UFH, and is not recommended for use with other Anti-Xa medications. Performed By: #### UFHXA ### # [facility] ([facility]) [address] [place] [phone] VIR COMPREHENSIVE METABOLIC PANEL Collected: 2024 2:47 AM Status: COMPLETED Source: [facility] TYPE CODE TESTS RESULT OUT OF RANGE REFERENCE UNITS LAB NA SODIUM 139 134-146 mmol/L LAB K POTASSIUM 3.9 3.5-5.0 mmol/L LAB CL CHLORIDE 101 98-109 mmol/L LAB CO2 CARBON DIOXIDE 33 High 22-32 mmol/L LAB AGAP ANION GAP 5 5-15 mmol/L LAB BUN BLOOD UREA NITROGEN 18 5-23 mg/dL LAB CRET CREATININE 1.06 High 0.40-1.00 mg/dL Result Comment: METHOD TRACE ABLE TO IDMS STANDARD LAB GLU GLUCOSE 114 High 65-99 mg/dL LAB CA CALCIUM 9.0 8.5-10.5 mg/dL LAB TP TOTAL PROTEIN 5.3 Low 6.0-8.0 g/dL LAB ALB ALBUMIN 3.3 3.2-5.3 g/dL LAB ALK ALKALINE PHOSPHATASE 49 39-130 U/L LAB AST AST 19 <=41 U/L LAB ALT ALT 29 <=31 U/L LAB TBIL BILIRUBIN,TOTAL 0.3 0.3-1.2 mg/dL LAB EGFR EGFR (CKD-EPI) NON-RACE DEPENDENT 65 >=60 ml/min/1 .73sq.m Result Comment: Reported eGF R is based on the CKD-EPI 2020 equation that does not use a race coefficient. Performed By: #### CMP #### [facility] ([facility]) [address] [place] [id number] VIR LDH Collected: 01/02/2025 2:47 AM S tatus: COMPLETED Source: [facility] TYPE CODE TESTS RESULT OUT OF RANGE REFERENCE UNITS LAB LDH LDH 151 100-235 U/L Performed By: #### LDH #### [facility] ([facility]) [address] [place] [address] VIR IONIZED CALCIUM Collected: 01/02/2025 2:47 AM Status: COMPLETED Source: [facility] TYPE CODE TESTS RESULT OUT OF RANGE REFERENCE UNITS LAB ICA IONIZED CALCIUM - ICAN 4.9 4.5-5.3 mg/dL Performed By: #### ICA #### [facility] ([facility]) [address] [place] [address] VIR HEPARIN ANTI XA, UNFRACTIONATED Collect ed: 01/01/2025 8:42 PM Status: COMPLETED Source: [facility] TYPE CODE TESTS RESULT OUT OF RANGE REFERENCE UNITS LAB UFHXA ANTI XA UFH 0.69 0.30-0.70 IU/mL Result Comment: Optimal time for testing is 6 hrs post dosage This test is specific for monitoring patients on UFH, and is not recommended for use with other Anti-Xa medications. Performed By: #### UFHXA ### # [facility] ([facility]) [address] [place] [address] VIR PROTIME AND INR Collected: 01/01/2025 1:04 PM Status: COMPLETED Source: [facility] TYPE CODE TESTS RESULT OUT OF RANGE REFERENCE UNITS LAB PROX PROTIME 11.8 9.8-13.2 sec LAB INR INR 1.0 0.9-1.2 NA Performed By: #### PINR #### [facility] ([facility]) [address] [place] [id number] VIR APTT Collected: 01/01/2025 1:04 PM S tatus: COMPLETED Source: [facility] TYPE CODE TESTS RESULT OUT OF RANGE REFERENCE UNITS LAB PTT APTT 25 Low 26-37 sec Performed By: #### PTT #### [facility] ([facility]) [address] [place] [phone] VIR HEPARIN ANTI XA, UNFRACTIONATED Collect ed: 01/01/2025 1:04 PM Status: COMPLETED Source: [facility] TYPE CODE TESTS RESULT OUT OF RANGE REFERENCE UNITS LAB UFHXA ANTI XA UFH 0.04 Low 0.30-0.70 IU/mL Result Comment: Optimal time for testing is 6 hrs post dosage This test is specific for monitoring patients on UFH, and is not recommended for use with other Anti-Xa medications. Performed By: #### UFHXA ### # [facility] ([facility]) [address] [place] [address] VIR CBC WITH AUTO DIFFERENTIAL Collected: 01/01/2025 1:04 PM Status: COMPLETED Source: [facility] TYPE CODE TESTS RESULT OUT OF RANGE REFERENCE UNITS LAB WBC WBC 14.7 High 4-11 x10E9/L LAB RBC RBC COUNT 3.51 Low 3.8-5.2 X10E12/ L LAB HGB HEMOGLOBIN 10.0 Low 11.7-15.5 g/dL LAB HCT HEMATOCRIT 30.9 Low 35-47 % LAB MCV MCV 88 80-100 fL LAB MCH MCH 28.5 27-34 pg LAB MCHC MCHC 32.4 32-36 g/dL LAB RDW RDW 15.6 High 11.5-15 % LAB PLTC PLATELET COUNT 103 Low 150-450 X10E9/L LAB MPV MPV 8.9 7-12 fL LAB META CELLAVISION METAMYELOCYTES RELATIVE PERCENT BY MANUAL COUNT 1 % Result Comment: This is an a ppended report. These results have been appended to a previously preliminary verified report. LAB NEUTCV CELLAVISION NEUTROPHILS RELATIVE PERCENT BY MANUAL COUNT 71 % Result Comment: This is an a ppended report. These results have been appended to a previously preliminary verified report. LAB LYMPCV CELLAVISION LYMPHOCYTES RELATIVE PERCENT BY MANUAL COUNT 26 % Result Comment: This is an a ppended report. These results have been appended to a previously preliminary verified report. LAB MONOC CELLAVISION MONOCYTES RELATIVE PERCENT BY MANUAL COUNT 3 % Result Comment: This is an a ppended report. These results have been appended to a previously preliminary verified report. LAB NRBCV CELLAVISION NUCLEATED RED BLOOD CELLS IN BLOOD BY LIGHT MICROSCOPY 4 NA Result Comment: This is an a ppended report. These results have been appended to a previously preliminary verified report. LAB ANEUTCV CELLAVISION NEUTROPHILS ABSOLUTE COUNT BY MANUAL COUNT 10.4 10*3/uL Result Comment: This is an a ppended report. These results have been appended to a previously preliminary verified report. LAB ALYMPCV CELLAVISION LYMPHOCYTES ABSOLUTE COUNT (10*3/UL) BY MANUAL COUNT 3.7 10*3/uL Result Comment: This is an a ppended report. These results have been appended to a previously preliminary verified report. LAB AMONOC CELLAVISION MONOCYTES ABSOLUTE COUNT (10*3/UL) IN BLOOD BY MANUAL COUNT 0.4 10*3/uL Result Comment: This is an a ppended report. These results have been appended to a previously preliminary verified report. LAB HYPO CELLAVISION HYPOCHROMIA IN BLOOD BY LIGHT MICROSCOPY 1+ Result Comment: This is an a ppended report. These results have been appended to a previously preliminary verified report. LAB POLY CELLAVISION POLYCHROMASIA IN BLOOD BY LIGHT MICROSCOPY 1+ Result Comment: This is an a ppended report. These results have been appended to a previously preliminary verified report. LAB DTYPE CELLAVISION DIFFERENTIAL TYPE CELLAVISION DIFFERENTIAL Result Comment: This is an a ppended report. These results have been appended to a previously preliminary verified report. Performed By: #### CBCA #### [facility] ([facility]) [facility]. [address] [place] [phone] VIR IONIZED CALCIUM Collected: 01/01/2025 6:11 AM Status: COMPLETED Source: [facility] TYPE CODE TESTS RESULT OUT OF RANGE REFERENCE UNITS LAB ICA IONIZED CALCIUM - ICAN 5.0 4.5-5.3 mg/dL Performed By: #### ICA #### [facility] ([facility]) [facility]. [address] [address] VIR FIBRINOGEN Collected: 01/01/2025 6:11 AM S tatus: COMPLETED Source: [facility] TYPE CODE TESTS RESULT OUT OF RANGE REFERENCE UNITS LAB FIBR FIBRINOGEN 190 190-480 mg/dL Performed By: #### FIBR #### [facility] ([facility]) [address] [place] [phone] VIR CBC WITH AUTO DIFFERENTIAL Collected: 01/01/2025 6:11 AM Status: COMPLETED Source: [facility] TYPE CODE TESTS RESULT OUT OF RANGE REFERENCE UNITS LAB WBC WBC 15.6 High 4-11 x10E9/L LAB RBC RBC COUNT 3.50 Low 3.8-5.2 X10E12/ L LAB HGB HEMOGLOBIN 9.8 Low 11.7-15.5 g/dL LAB HCT HEMATOCRIT 30.6 Low 35-47 % LAB MCV MCV 87 80-100 fL LAB MCH MCH 28.0 27-34 pg LAB MCHC MCHC 32.0 32-36 g/dL LAB RDW RDW 15.6 High 11.5-15 % LAB PLTC PLATELET COUNT 93 Low 150-450 X10E9/L LAB MPV MPV 8.7 7-12 fL LAB MYEL CELLAVISION MYELOCYTE RELATIVE PERCENT BY MANUAL COUNT 2 % Result Comment: This is an a ppended report. These results have been appended to a previously preliminary verified report. LAB META CELLAVISION METAMYELOCYTES RELATIVE PERCENT BY MANUAL COUNT 1 % Result Comment: This is an a ppended report. These results have been appended to a previously preliminary verified report. LAB BAND CELLAVISION % BAND NEUTROPHILS 3 % Result Comment: This is an a ppended report. These results have been appended to a previously preliminary verified report. LAB NEUTCV CELLAVISION NEUTROPHILS RELATIVE PERCENT BY MANUAL COUNT 67 % Result Comment: This is an a ppended report. These results have been appended to a previously preliminary verified report. LAB LYMPCV CELLAVISION LYMPHOCYTES RELATIVE PERCENT BY MANUAL COUNT 19 % Result Comment: This is an a ppended report. These results have been appended to a previously preliminary verified report. LAB MONOC CELLAVISION MONOCYTES RELATIVE PERCENT BY MANUAL COUNT 8 % Result Comment: This is an a ppended report. These results have been appended to a previously preliminary verified report. LAB NRBCV CELLAVISION NUCLEATED RED BLOOD CELLS IN BLOOD BY LIGHT MICROSCOPY 1 NA Result Comment: This is an a ppended report. These results have been appended to a previously preliminary verified report. LAB ANEUTCV CELLAVISION NEUTROPHILS ABSOLUTE COUNT BY MANUAL COUNT 10.9 10*3/uL Result Comment: This is an a ppended report. These results have been appended to a previously preliminary verified report. LAB ALYMPCV CELLAVISION LYMPHOCYTES ABSOLUTE COUNT (10*3/UL) BY MANUAL COUNT 3.0 10*3/uL Result Comment: This is an a ppended report. These results have been appended to a previously preliminary verified report. LAB AMONOC CELLAVISION MONOCYTES ABSOLUTE COUNT (10*3/UL) IN BLOOD BY MANUAL COUNT 1.2 10*3/uL Result Comment: This is an a ppended report. These results have been appended to a previously preliminary verified report. LAB POLY CELLAVISION POLYCHROMASIA IN BLOOD BY LIGHT MICROSCOPY 1+ Result Comment: This is an a ppended report. These results have been appended to a previously preliminary verified report. LAB FRAG CELLAVISION RBC FRAGMENTS 1+ Result Comment: This is an a ppended report. These results have been appended to a previously preliminary verified report. LAB TEAR CELLAVISION DACROCYTES IN BLOOD BY LIGHT MICROSCOPY 1+ Result Comment: This is an a ppended report. These results have been appended to a previously preliminary verified report. LAB DTYPE CELLAVISION DIFFERENTIAL TYPE MANUAL DIFFERENTIAL Result Comment: This is an a ppended report. These results have been appended to a previously preliminary verified report. Performed By: #### CBCA #### [facility] ([facility]) [address] [place] [address] VIR COMPREHENSIVE METABOLIC PANEL Collected: 2024 6:11 AM Status: COMPLETED Source: [facility] TYPE CODE TESTS RESULT OUT OF RANGE REFERENCE UNITS LAB NA SODIUM 142 134-146 mmol/L LAB K POTASSIUM 4.0 3.5-5.0 mmol/L LAB CL CHLORIDE 105 98-109 mmol/L LAB CO2 CARBON DIOXIDE 32 22-32 mmol/L LAB AGAP ANION GAP 5 5-15 mmol/L LAB BUN BLOOD UREA NITROGEN 16 5-23 mg/dL LAB CRET CREATININE 0.91 0.40-1.00 mg/dL Result Comment: METHOD TRACE ABLE TO IDMS STANDARD LAB GLU GLUCOSE 62 Low 65-99 mg/dL LAB CA CALCIUM 9.0 8.5-10.5 mg/dL LAB TP TOTAL PROTEIN 5.4 Low 6.0-8.0 g/dL LAB ALB ALBUMIN 3.3 3.2-5.3 g/dL LAB ALK ALKALINE PHOSPHATASE 46 39-130 U/L LAB AST AST 15 <=41 U/L LAB ALT ALT 17 <=31 U/L LAB TBIL BILIRUBIN,TOTAL 0.3 0.3-1.2 mg/dL LAB EGFR EGFR (CKD-EPI) NON-RACE DEPENDENT 78 >=60 ml/min/1 .73sq.m Result Comment: Reported eGF R is based on the CKD-EPI 2020 equation that does not use a race coefficient. Performed By: #### CMP #### [facility] ([facility]) [address] [place] [id number] VIR LDH Collected: 01/01/2025 6:11 AM S tatus: COMPLETED Source: [facility] TYPE CODE TESTS RESULT OUT OF RANGE REFERENCE UNITS LAB LDH LDH 182 100-235 U/L Performed By: #### LDH #### [facility] ([facility]) [address] [place] [address] VIR HEPATITIS B CORE ANTIBODY, TOTAL Collected: 01/01/2025 6:11 AM Status: COMPLETED Source: [facility] TYPE CODE TESTS RESULT OUT OF RANGE REFERENCE UNITS LAB AHBC ANTI HBC Non-Reactive Non-Reactive Performed By: #### AHBC #### [facility] ([facility]) [address] [place] [phone] VIR HEPATITIS B SURFACE ANTIBODY QUANTITATION Collected: 01/01/2025 6:11 AM Status: COMPLETED Source: [facility] Order Comment: Vaccinated: > =10 mIU/mL, Positive (Immune) Unvaccinated: <10 mIU/mL, Negative (Not Immune) TYPE CODE TESTS RESULT OUT OF RANGE REFERENCE UNITS LAB AHBSQ ANTI HBS QUANT. >^500.0 mIU/mL Performed By: #### AHBSQ ### # [facility] ([facility]) [address] [place] [address] VIR HEPATITIS B SURFACE ANTIGEN Collected: 01/02/20 6:11 AM Status: COMPLETED Source: [facility] TYPE CODE TESTS RESULT OUT OF RANGE REFERENCE UNITS LAB HBAG HEPATITIS B SURF AG Non-Reactive Non-Reactive Performed By: #### HBAG #### [facility] ([facility]) [address] [place] [phone] VIR IONIZED CALCIUM Collected: 12/31/2024 6:30 AM Status: COMPLETED Source: [facility] TYPE CODE TESTS RESULT OUT OF RANGE REFERENCE UNITS LAB ICA IONIZED CALCIUM - ICAN 5.2 4.5-5.3 mg/dL Performed By: #### ICA #### [facility] ([facility]) [address] [place] [address] VIR FIBRINOGEN Collected: 12/31/2024 6:30 AM S tatus: COMPLETED Source: [facility] TYPE CODE TESTS RESULT OUT OF RANGE REFERENCE UNITS LAB FIBR FIBRINOGEN 246 190-480 mg/dL Performed By: #### FIBR #### [facility] ([facility]) [address] [place] [address] VIR COMPREHENSIVE METABOLIC PANEL Collected: 2024 6:30 AM Status: COMPLETED Source: [facility] TYPE CODE TESTS RESULT OUT OF RANGE REFERENCE UNITS LAB NA SODIUM 140 134-146 mmol/L LAB K POTASSIUM 4.3 3.5-5.0 mmol/L LAB CL CHLORIDE 105 98-109 mmol/L LAB CO2 CARBON DIOXIDE 27 22-32 mmol/L LAB AGAP ANION GAP 8 5-15 mmol/L LAB BUN BLOOD UREA NITROGEN 19 5-23 mg/dL LAB CRET CREATININE 1.06 High 0.40-1.00 mg/dL Result Comment: METHOD TRACE ABLE TO IDMS STANDARD LAB GLU GLUCOSE 114 High 65-99 mg/dL LAB CA CALCIUM 9.6 8.5-10.5 mg/dL LAB TP TOTAL PROTEIN 6.8 6.0-8.0 g/dL LAB ALB ALBUMIN 4.0 3.2-5.3 g/dL LAB ALK ALKALINE PHOSPHATASE 51 39-130 U/L LAB AST AST 16 <=41 U/L LAB ALT ALT 16 <=31 U/L LAB TBIL BILIRUBIN,TOTAL 0.4 0.3-1.2 mg/dL LAB EGFR EGFR (CKD-EPI) NON-RACE DEPENDENT 65 >=60 ml/min/1 .73sq.m Result Comment: Reported eGF R is based on the CKD-EPI 2020 equation that does not use a race coefficient. Performed By: #### CMP #### [facility] ([facility]) [address] [place] [address] [place] [phone] VIR CBC WITH AUTO DIFFERENTIAL Collected: 6:30 AM Status: COMPLETED Source: [facility] TYPE CODE TESTS RESULT OUT OF RANGE REFERENCE UNITS LAB WBC WBC 12.9 High 4-11 x10E9/L LAB RBC RBC COUNT 3.93 3.8-5.2 X10E12/L LAB HGB HEMOGLOBIN 11.0 Low 11.7-15.5 g/dL LAB HCT HEMATOCRIT 33.7 Low 35-47 % LAB MCV MCV 86 80-100 fL LAB MCH MCH 28.0 27-34 pg LAB MCHC MCHC 32.7 32-36 g/dL LAB RDW RDW 15.4 High 11.5-15 % LAB PLTC PLATELET COUNT 67 Low 150-450 X10E9/L LAB MPV MPV 8.7 7-12 fL LAB BAND CELLAVISION % BAND NEUTROPHILS 1 % Result Comment: This is an a ppended report. These results have been appended to a previously preliminary verified report. LAB NEUTCV CELLAVISION NEUTROPHILS RELATIVE PERCENT BY MANUAL COUNT 79 % Result Comment: This is an a ppended report. These results have been appended to a previously preliminary verified report. LAB LYMPCV CELLAVISION LYMPHOCYTES RELATIVE PERCENT BY MANUAL COUNT 15 % Result Comment: This is an a ppended report. These results have been appended to a previously preliminary verified report. LAB MONOC CELLAVISION MONOCYTES RELATIVE PERCENT BY MANUAL COUNT 5 % Result Comment: This is an a ppended report. These results have been appended to a previously preliminary verified report. LAB NRBCV CELLAVISION NUCLEATED RED BLOOD CELLS IN BLOOD BY LIGHT MICROSCOPY 1 NA Result Comment: This is an a ppended report. These results have been appended to a previously preliminary verified report. LAB ANEUTCV CELLAVISION NEUTROPHILS ABSOLUTE COUNT BY MANUAL COUNT 10.4 10*3/uL Result Comment: This is an a ppended report. These results have been appended to a previously preliminary verified report. LAB ALYMPCV CELLAVISION LYMPHOCYTES ABSOLUTE COUNT (10*3/UL) BY MANUAL COUNT 1.9 10*3/uL Result Comment: This is an a ppended report. These results have been appended to a previously preliminary verified report. LAB AMONOC CELLAVISION MONOCYTES ABSOLUTE COUNT (10*3/UL) IN BLOOD BY MANUAL COUNT 0.6 10*3/uL Result Comment: This is an a ppended report. These results have been appended to a previously preliminary verified report. LAB POLY CELLAVISION POLYCHROMASIA IN BLOOD BY LIGHT MICROSCOPY 1+ Result Comment: This is an a ppended report. These results have been appended to a previously preliminary verified report. LAB DTYPE CELLAVISION DIFFERENTIAL TYPE MANUAL DIFFERENTIAL Result Comment: This is an a ppended report. These results have been appended to a previously preliminary verified report. Performed By: #### CBCA #### [facility] ([facility]) [address] [place] [address] VIR CBC WITH AUTO DIFFERENTIAL Collected: 12/31/2024 12:4 8 AM Status: COMPLETED Source: [facility] TYPE CODE TESTS RESULT OUT OF RANGE REFERENCE UNITS LAB WBC WBC 10.4 4-11 x10E9/L LAB RBC RBC COUNT 3.55 Low 3.8-5.2 X10E12/ L LAB HGB HEMOGLOBIN 10.2 Low 11.7-15.5 g/dL LAB HCT HEMATOCRIT 30.3 Low 35-47 % LAB MCV MCV 85 80-100 fL LAB MCH MCH 28.7 27-34 pg LAB MCHC MCHC 33.7 32-36 g/dL LAB RDW RDW 15.5 High 11.5-15 % LAB PLTC PLATELET COUNT 52 Low 150-450 X10E9/L LAB MPV MPV 8.9 7-12 fL LAB META CELLAVISION METAMYELOCYTES RELATIVE PERCENT BY MANUAL COUNT 1 % Result Comment: This is an a ppended report. These results have been appended to a previously preliminary verified report. LAB BAND CELLAVISION % BAND NEUTROPHILS 4 % Result Comment: This is an a ppended report. These results have been appended to a previously preliminary verified report. LAB NEUTCV CELLAVISION NEUTROPHILS RELATIVE PERCENT BY MANUAL COUNT 74 % Result Comment: This is an a ppended report. These results have been appended to a previously preliminary verified report. LAB LYMPCV CELLAVISION LYMPHOCYTES RELATIVE PERCENT BY MANUAL COUNT 17 % Result Comment: This is an a ppended report. These results have been appended to a previously preliminary verified report. LAB MONOC CELLAVISION MONOCYTES RELATIVE PERCENT BY MANUAL COUNT 4 % Result Comment: This is an a ppended report. These results have been appended to a previously preliminary verified report. LAB ANEUTCV CELLAVISION NEUTROPHILS ABSOLUTE COUNT BY MANUAL COUNT 8.1 10*3/uL Result Comment: This is an a ppended report. These results have been appended to a previously preliminary verified report. LAB ALYMPCV CELLAVISION LYMPHOCYTES ABSOLUTE COUNT (10*3/UL) BY MANUAL COUNT 1.8 10*3/uL Result Comment: This is an a ppended report. These results have been appended to a previously preliminary verified report. LAB AMONOC CELLAVISION MONOCYTES ABSOLUTE COUNT (10*3/UL) IN BLOOD BY MANUAL COUNT 0.4 10*3/uL Result Comment: This is an a ppended report. These results have been appended to a previously preliminary verified report. LAB RBCMOR CELLAVISION RBC MORPHOLOGY Normal Result Comment: This is an a ppended report. These results have been appended to a previously preliminary verified report. LAB DTYPE CELLAVISION DIFFERENTIAL TYPE MANUAL DIFFERENTIAL Result Comment: This is an a ppended report. These results have been appended to a previously preliminary verified report. Performed By: #### CBCA #### [facility] ([facility]) [address] [place] [address] VIR TRANSFUSION REACTION Collected: 12/31/2024 12:4 4 AM Status: COMPLETED Source: [facility] TYPE CODE TESTS RESULT OUT OF RANGE REFERENCE UNITS LAB [id number] TRANSFUSION REACTION No hemolytic reaction noted Performed By: #### TRXN #### [facility] ([facility]) [address] [place] [address] VIR CBC WITH AUTO DIFFERENTIAL Collected: 0 12/30/2024 7:07 PM Status: COMPLETED Source: [facility] TYPE CODE TESTS RESULT OUT OF RANGE REFERENCE UNITS LAB WBC WBC 8.2 4-11 x10E9/L LAB RBC RBC COUNT 3.45 Low 3.8-5.2 X10E12/L LAB HGB HEMOGLOBIN 9.8 Low 11.7-15.5 g/dL LAB HCT HEMATOCRIT 30.1 Low 35-47 % LAB MCV MCV 87 80-100 fL LAB MCH MCH 28.4 27-34 pg LAB MCHC MCHC 32.4 32-36 g/dL LAB RDW RDW 15.5 High 11.5-15 % LAB PLTC PLATELET COUNT 54 Low 150-450 X10E9/L LAB MPV MPV 8.4 7-12 fL LAB NEUTCV CELLAVISION NEUTROPHILS RELATIVE PERCENT BY MANUAL COUNT 75 % Result Comment: This is an a ppended report. These results have been appended to a previously preliminary verified report. LAB LYMPCV CELLAVISION LYMPHOCYTES RELATIVE PERCENT BY MANUAL COUNT 21 % Result Comment: This is an a ppended report. These results have been appended to a previously preliminary verified report. LAB MONOC CELLAVISION MONOCYTES RELATIVE PERCENT BY MANUAL COUNT 4 % Result Comment: This is an a ppended report. These results have been appended to a previously preliminary verified report. LAB NRBCV CELLAVISION NUCLEATED RED BLOOD CELLS IN BLOOD BY LIGHT MICROSCOPY 1 NA Result Comment: This is an a ppended report. These results have been appended to a previously preliminary verified report. LAB ANEUTCV CELLAVISION NEUTROPHILS ABSOLUTE COUNT BY MANUAL COUNT 6.2 10*3/uL Result Comment: This is an a ppended report. These results have been appended to a previously preliminary verified report. LAB ALYMPCV CELLAVISION LYMPHOCYTES ABSOLUTE COUNT (10*3/UL) BY MANUAL COUNT 1.7 10*3/uL Result Comment: This is an a ppended report. These results have been appended to a previously preliminary verified report. LAB AMONOC CELLAVISION MONOCYTES ABSOLUTE COUNT (10*3/UL) IN BLOOD BY MANUAL COUNT 0.3 10*3/uL Result Comment: This is an a ppended report. These results have been appended to a previously preliminary verified report. LAB RBCMOR CELLAVISION RBC MORPHOLOGY Normal Result Comment: This is an a ppended report. These results have been appended to a previously preliminary verified report. LAB DTYPE CELLAVISION DIFFERENTIAL TYPE MANUAL DIFFERENTIAL Result Comment: This is an a ppended report. These results have been appended to a previously preliminary verified report. Performed By: #### CBCA #### [facility] ([facility]) [address] [place] [address] VIR IR CICV NON-TUNLD > 5YRS Observed: 12/30 2:28 PM Status: COMPLETED Source: [facility] IR CICV NON-TUNLD > 5YRS CENTRAL VENOUS CATHETER PLACEMENT WITH ULTRASOUND GUIDANCE [...] and saved in PACS , and the reference air kerma was 3.74 mGy. PROCEDURE: The [...] nursing personnel. Procedure was performed using a cap, sterile gown, sterile gloves, a large sterile sheet, hand hygiene and 2% chlorhexidine for cutaneous antisepsis. The patient was positioned supine on the table and prepped and draped in usual sterile fashion. A critical pause was performed with assisting personnel just prior to the procedure with the patient's identity confirmed using 2 identifiers, confirming site and side. Ultrasound was used to demonstrate a patent right internal jugular vein and appropriate directional flow, with an image saved in the permanent medical record. 1% lidocaine with epinephrine was used for local anesthesia. A small skin incision was made with blunt dissection into the subcutaneous tissues. The vein was then punctured under real-time sonographic guidance. A wire was advanced in to the IVC. The tract was then upsized to accommodate a 15 cm trialysis catheter with tip terminating at the cavoatrial junction. Catheter was secured in place with suture. Catheter function was tested, and all lumens were found to function well. Lumens of the catheter were flushed with anticoagulant. The patient tolerated the procedure well with no immediate complication IMPRESSION: Successful image guided placement of a trialysis catheter via the right internal jugular vein with the catheter tip terminating at the cavoatrial junction. The catheter is available for immediate use. Finalized by Pedro Rivera MD on 12/30/2024 2:37 PM TYPE AND SCREEN Collected: 12:03 PM Status: C Source: [facility] TYPE CODE TESTS RESULT OUT OF RANGE REFERENCE UNITS LAB ABO_INTEP ABO_INTEP O LAB RH_INTEP RH_INTEP Negative LAB ABSC_INTEP ANTIBODY SCREEN Negative Performed By: #### TSC #### [facility] ([facility]) [address] [place] [address] VIR FIBRINOGEN Collected: 12/30/2024 12:03 PM Status: COMPLETED Source: [facility] TYPE CODE TESTS RESULT OUT OF RANGE REFERENCE UNITS LAB FIBR FIBRINOGEN 231 190-480 mg/dL Performed By: #### FIBR #### [facility] ([facility]) [address] [place] [address] VIR IONIZED CALCIUM Collected: 12:03 PM Status: COMPLETED Source: [facility] CODE TESTS RESULT OUT OF RANGE REFERENCE UNITS LAB ICA IONIZED CALCIUM - ICAN 5.0 4.5-5.3 mg/dL Performed By: #### ICA #### [facility] ([facility]) [address] [place] [address] VIR CBC WITH AUTO DIFFERENTIAL Collected: 12/30/2024 6:42 AM Status: COMPLETED Source: [facility] TYPE CODE TESTS RESULT OUT OF RANGE REFERENCE UNITS LAB WBC WBC 11.1 High 4-11 x10E9/L LAB RBC RBC COUNT 3.29 Low 3.8-5.2 X10E12/ L LAB HGB HEMOGLOBIN 9.4 Low 11.7-15.5 g/dL LAB HCT HEMATOCRIT 28.2 Low 35-47 % LAB MCV MCV 86 80-100 fL LAB MCH MCH 28.5 27-34 pg LAB MCHC MCHC 33.2 32-36 g/dL LAB RDW RDW 15.1 High 11.5-15 % LAB PLTC PLATELET COUNT 39 Low 150-450 X10E9/L LAB MPV MPV 7.8 7-12 fL LAB MYEL CELLAVISION MYELOCYTE RELATIVE PERCENT BY MANUAL COUNT 1 % Result Comment: This is an a ppended report. These results have been appended to a previously preliminary verified report. LAB META CELLAVISION METAMYELOCYTES RELATIVE PERCENT BY MANUAL COUNT 2 % Result Comment: This is an a ppended report. These results have been appended to a previously preliminary verified report. LAB NEUTCV CELLAVISION NEUTROPHILS RELATIVE PERCENT BY MANUAL COUNT 64 % Result Comment: This is an a ppended report. These results have been appended to a previously preliminary verified report. LAB LYMPCV CELLAVISION LYMPHOCYTES RELATIVE PERCENT BY MANUAL COUNT 30 % Result Comment: This is an a ppended report. These results have been appended to a previously preliminary verified report. LAB MONOC CELLAVISION MONOCYTES RELATIVE PERCENT BY MANUAL COUNT 1 % Result Comment: This is an a ppended report. These results have been appended to a previously preliminary verified report. LAB EOSCV CELLAVISION EOSINOPHILS PERCENT BY MANUAL COUNT 2 % Result Comment: This is an a ppended report. These results have been appended to a previously preliminary verified report. LAB BASOCV CELLAVISION BASOPHILS RELATIVE PERCENT BY MANUAL COUNT 1 % Result Comment: This is an a ppended report. These results have been appended to a previously preliminary verified report. LAB NRBCV CELLAVISION NUCLEATED RED BLOOD CELLS IN BLOOD BY LIGHT MICROSCOPY 3 NA Result Comment: This is an a ppended report. These results have been appended to a previously preliminary verified report. LAB ANEUTCV CELLAVISION NEUTROPHILS ABSOLUTE COUNT BY MANUAL COUNT 7.1 10*3/uL Result Comment: This is an a ppended report. These results have been appended to a previously preliminary verified report. LAB ALYMPCV CELLAVISION LYMPHOCYTES ABSOLUTE COUNT (10*3/UL) BY MANUAL COUNT 3.3 10*3/uL Result Comment: This is an a ppended report. These results have been appended to a previously preliminary verified report. LAB AMONOC CELLAVISION MONOCYTES ABSOLUTE COUNT (10*3/UL) IN BLOOD BY MANUAL COUNT 0.1 10*3/uL Result Comment: This is an a ppended report. These results have been appended to a previously preliminary verified report. LAB AEOSCV CELLAVISION EOSINOPHILS ABSOLUTE COUNT (10*3/UL) BY MANUAL COUNT 0.2 10*3/uL Result Comment: This is an a ppended report. These results have been appended to a previously preliminary verified report. LAB ABASOCV CELLAVISION BASOPHILS ABSOLUTE COUNT (10*3/UL) BY MANUAL COUNT 0.1 10*3/uL Result Comment: This is an a ppended report. These results have been appended to a previously preliminary verified report. LAB FRAG CELLAVISION RBC FRAGMENTS 1+ Result Comment: This is an a ppended report. These results have been appended to a previously preliminary verified report. LAB DTYPE CELLAVISION DIFFERENTIAL TYPE CELLAVISION DIFFERENTIAL Result Comment: This is an a ppended report. These results have been appended to a previously preliminary verified report. Performed By: #### CBCA #### [facility] ([facility]) [address] [place] [address] VIR COMPREHENSIVE METABOLIC PANEL Collected: 2024 6:42 AM Status: COMPLETED Source: [facility] TYPE CODE TESTS RESULT OUT OF RANGE REFERENCE UNITS LAB NA SODIUM 140 134-146 mmol/L LAB K POTASSIUM 3.9 3.5-5.0 mmol/L LAB CL CHLORIDE 109 98-109 mmol/L LAB CO2 CARBON DIOXIDE 25 22-32 mmol/L LAB AGAP ANION GAP 6 5-15 mmol/L LAB BUN BLOOD UREA NITROGEN 19 5-23 mg/dL LAB CRET CREATININE 0.97 0.40-1.00 mg/dL Result Comment: METHOD TRACE ABLE TO IDMS STANDARD LAB GLU GLUCOSE 72 65-99 mg/dL LAB CA CALCIUM 8.9 8.5-10.5 mg/dL LAB TP TOTAL PROTEIN 6.7 6.0-8.0 g/dL LAB ALB ALBUMIN 3.3 3.2-5.3 g/dL LAB ALK ALKALINE PHOSPHATASE 48 39-130 U/L LAB AST AST 12 <=41 U/L LAB ALT ALT 14 <=31 U/L LAB TBIL BILIRUBIN,TOTAL 0.6 0.3-1.2 mg/dL LAB EGFR EGFR (CKD-EPI) NON-RACE DEPENDENT 73 >=60 ml/min/1 .73sq.m Result Comment: Reported eGF R is based on the CKD-EPI 2020 equation that does not use a race coefficient. Performed By: #### CMP #### [facility] ([facility]) [address] [place] [id number] VIR LDH Collected: 12/30/2024 6:42 AM S tatus: COMPLETED Source: [facility] TYPE CODE TESTS RESULT OUT OF RANGE REFERENCE UNITS LAB LDH LDH 248 High 100-235 U/L Performed By: #### LDH #### [facility] ([facility]) [address] [place] [address] VIR RETICULOCYTES Collected: 12/30/2024 6:42 AM S tatus: COMPLETED Source: [facility] TYPE CODE TESTS RESULT OUT OF RANGE REFERENCE UNITS LAB RETIC RETICULOCYTE COUNT 2.9 High 0.4-2.2 % Performed By: #### RETIC ### # [facility] ([facility]) [address] [place] [address] VIR CLINICAL PATHOLOGY Collected: 12:00 AM Status: COMPLETED Source: [facility] TYPE CODE TESTS RESULT OUT OF RANGE REFERENCE UNITS LAB [id number] Clinical Pathology Result Comment: [facility] [address] [place] [address] Clinical Pathology Report Patient Name:TEREZA DURAN:1975 (Age: 49)Gender:FTaken:12/30/2024Reported:01/01/2025Physician(s):Tatum Manzo M.D. ([phone])Copy To: Rec. #:[id number]: #[id number] Final Pathologic Diagnosis No serological evidence of a hemolytic transfusion reaction. The signs/symptoms are consistent with an allergic transfusion reaction. The patient developed periorbital and palate edema, along with a drop in BP, during infusion of the final plasma unit in a therapeutic plasmapheresis procedure for TTP. The final unit or any of the prior units transfused during the procedure may be responsible for the reaction. An allergic transfusion reaction can occur during or within 4 hours of cessation of transfusion. Unit numbers are available in the [facility] Laboratory Information System. Treatment with diphenhydramine and solumedrol resulted in dissipation of signs/symptoms within an hour. Reference[facility] Component Hemovigilance Module Surveillance Protocol v2.9 Report Electronically Signed Out 01/01/2025Apolinar Jones MD Interpretation performed at [facility], [address] [facility] [address], License number: [id number]. Clinical History Stroke. TRANSFUSION REACTION CONSULTATION DATA/OBSERVATIONS: Repeat ABO/Rh typing (pre-and post-transfusion): O negative Repeat ABO/Rh typing on donor specimen: B negative (Plasma) PB: Negative Visible hemolysis in patient sample: No Specimen(s) Received Transfusion Reaction Fee Codes(s): 11684 FUNGAL CULTURE, SKIN Observed: 3:00 PM Status: P Source: [facility] CULTURE RESULTS Culture in progress FUNGAL SMEAR No fungal elements seen On Direct Smear Performed By: #### SKC #### [facility] ([facility]) [address] [place] [address] VIR CBC WITH AUTO DIFFERENTIAL Collected: 0 12/29/2024 10:11 AM Status: COMPLETED Source: [facility] TYPE CODE TESTS RESULT OUT OF RANGE REFERENCE UNITS LAB WBC WBC 12.1 High 4-11 x10E9/L LAB RBC RBC COUNT 3.57 Low 3.8-5.2 X10E12/L LAB HGB HEMOGLOBIN 10.3 Low 11.7-15.5 g/dL LAB HCT HEMATOCRIT 31.0 Low 35-47 % LAB MCV MCV 87 80-100 fL LAB MCH MCH 28.9 27-34 pg LAB MCHC MCHC 33.2 32-36 g/dL LAB RDW RDW 14.9 11.5-15 % LAB PLTC PLATELET COUNT 39 Low 150-450 X10E9/L LAB MPV MPV 7.4 7-12 fL LAB NEUT NEUTROPHILS RELATIVE PERCENT BY AUTOMATED COUNT 71.4 % Result Comment: This is an a ppended report. These results have been appended to a previously preliminary verified report. LAB LYMP LYMPHOCYTES RELATIVE PERCENT BY AUTOMATED COUNT 24.7 % Result Comment: This is an a ppended report. These results have been appended to a previously preliminary verified report. LAB MONO MONOCYTES RELATIVE PERCENT BY AUTOMATED COUNT 3.4 % Result Comment: This is an a ppended report. These results have been appended to a previously preliminary verified report. LAB EOS EOSINOPHILS RELATIVE PERCENT BY AUTOMATED COUNT 0.3 % Result Comment: This is an a ppended report. These results have been appended to a previously preliminary verified report. LAB BASO BASOPHILS RELATIVE PERCENT BY AUTOMATED COUNT 0.2 % Result Comment: This is an a ppended report. These results have been appended to a previously preliminary verified report. LAB ANEUT NEUTROPHILS ABSOLUTE COUNT BY AUTOMATED COUNT 8.6 10*3/uL Result Comment: This is an a ppended report. These results have been appended to a previously preliminary verified report. LAB ALYMP LYMPHOCYTES ABSOLUTE COUNT (10*3/UL) BY AUTOMATED COUNT 3.0 10*3/uL Result Comment: This is an a ppended report. These results have been appended to a previously preliminary verified report. LAB AMONO MONOCYTES ABSOLUTE COUNT (10*3/UL) BY AUTOMATED COUNT 0.4 10*3/uL Result Comment: This is an a ppended report. These results have been appended to a previously preliminary verified report. LAB AEOS EOSINOPHILS ABSOLUTE COUNT (10*3/UL) BY AUTOMATED COUNT 0.0 10*3/uL Result Comment: This is an a ppended report. These results have been appended to a previously preliminary verified report. LAB ABASO BASOPHILS ABSOLUTE COUNT (10*3/UL) BY AUTOMATED COUNT 0.0 10*3/uL Result Comment: This is an a ppended report. These results have been appended to a previously preliminary verified report. LAB DTYPE CELLAVISION DIFFERENTIAL TYPE AUTOMATED DIFFERENTIAL Result Comment: This is an a ppended report. These results have been appended to a previously preliminary verified report. Performed By: #### CBCA #### [facility] ([facility]) [address] [place] [address] VIR CLINICAL PATHOLOGY BLOOD SME AR REVIEW Collected: 12/29/2024 10:11 AM Status: X Source: [facility] Order Comment: Please have p athology expedite read to re-evaluate for schistocytes TYPE CODE TESTS RESULT OUT OF RANGE REFERENCE UNITS LAB [facility] CLINICAL PATHOLOGY BLOOD SMEAR REVIEW STAFF CLINICAL PATHOLOGY BLOOD SMEAR REVIEW Cancelled LDH Collected: 10:10 AM Status: COMPLETED Source: [facility] TYPE CODE TESTS RESULT OUT OF RANGE REFERENCE UNITS LAB LDH LDH 282 High 100-235 U/L Performed By: #### LDH #### [facility] ([facility]) [address] [place] [address] VIR COMPREHENSIVE METABOLIC PANEL Collected : 12/29/2024 10:10 AM Status: COMPLETED Source: [facility] TYPE CODE TESTS RESULT OUT OF RANGE REFERENCE UNITS LAB NA SODIUM 140 134-146 mmol/L LAB K POTASSIUM 4.0 3.5-5.0 mmol/L LAB CL CHLORIDE 106 98-109 mmol/L LAB CO2 CARBON DIOXIDE 26 22-32 mmol/L LAB AGAP ANION GAP 8 5-15 mmol/L LAB BUN BLOOD UREA NITROGEN 17 5-23 mg/dL LAB CRET CREATININE 0.97 0.40-1.00 mg/dL Result Comment: METHOD TRACE ABLE TO IDMS STANDARD LAB GLU GLUCOSE 175 High 65-99 mg/dL LAB CA CALCIUM 9.3 8.5-10.5 mg/dL LAB TP TOTAL PROTEIN 6.0 6.0-8.0 g/dL LAB ALB ALBUMIN 4.0 3.2-5.3 g/dL LAB ALK ALKALINE PHOSPHATASE 57 39-130 U/L LAB AST AST 16 <=41 U/L LAB ALT ALT 15 <=31 U/L LAB TBIL BILIRUBIN,TOTAL 0.7 0.3-1.2 mg/dL LAB EGFR EGFR (CKD-EPI) NON-RACE DEPENDENT 73 >=60 ml/min/1 .73sq.m Result Comment: Reported eGF R is based on the CKD-EPI 2020 equation that does not use a race coefficient. Performed By: #### CMP #### [facility] ([facility]) [address] [place] [address] VIR HAPTOGLOBIN Collected: 12/29/2024 10:10 AM Status: COMPLETED Source: [facility] TYPE CODE TESTS RESULT OUT OF RANGE REFERENCE UNITS LAB HAPT HAPTOGLOBIN <^30 Low 32-228 mg/dL Performed By: #### HAPT #### [facility] ([facility]) [address] [facility] [address] [place] [address] VIR COMPREHENSIVE METABOLIC PANEL Collected : 12/28/2024 11:43 PM Status: COMPLETED Source: [facility] TYPE CODE TESTS RESULT OUT OF RANGE REFERENCE UNITS LAB NA SODIUM 138 134-146 mmol/L LAB K POTASSIUM 4.2 3.5-5.0 mmol/L LAB CL CHLORIDE 107 98-109 mmol/L LAB CO2 CARBON DIOXIDE 23 22-32 mmol/L LAB AGAP ANION GAP 8 5-15 mmol/L LAB BUN BLOOD UREA NITROGEN 14 5-23 mg/dL LAB CRET CREATININE 0.98 0.40-1.00 mg/dL Result Comment: METHOD TRACE ABLE TO IDMS STANDARD LAB GLU GLUCOSE 174 High 65-99 mg/dL LAB CA CALCIUM 9.2 8.5-10.5 mg/dL LAB TP TOTAL PROTEIN 6.2 6.0-8.0 g/dL LAB ALB ALBUMIN 4.0 3.2-5.3 g/dL LAB ALK ALKALINE PHOSPHATASE 64 39-130 U/L LAB AST AST 13 <=41 U/L LAB ALT ALT 12 <=31 U/L LAB TBIL BILIRUBIN,TOTAL 0.6 0.3-1.2 mg/dL LAB EGFR EGFR (CKD-EPI) NON-RACE DEPENDENT 72 >=60 ml/min/1 .73sq.m Result Comment: Reported eGF R is based on the CKD-EPI 2020 equation that does not use a race coefficient. Performed By: #### CMP #### [facility] ([facility]) [address] [place] [address] VIR LDH Collected: 11:43 PM Status: COMPLETED Source: [facility] TYPE CODE TESTS RESULT OUT OF RANGE REFERENCE UNITS LAB LDH LDH 293 High 100-235 U/L Performed By: #### LDH #### [facility] ([facility]) [address] [place] [address] VIR CBC WITH AUTO DIFFERENTIAL Collected: 0 12/28/2024 11:43 PM Status: COMPLETED Source: [facility] TYPE CODE TESTS RESULT OUT OF RANGE REFERENCE UNITS LAB WBC WBC 12.6 High 4-11 x10E9/L LAB RBC RBC COUNT 3.73 Low 3.8-5.2 X10E12/L LAB HGB HEMOGLOBIN 10.6 Low 11.7-15.5 g/dL LAB HCT HEMATOCRIT 32.2 Low 35-47 % LAB MCV MCV 86 80-100 fL LAB MCH MCH 28.5 27-34 pg LAB MCHC MCHC 33.0 32-36 g/dL LAB RDW RDW 15.0 11.5-15 % LAB PLTC PLATELET COUNT 28 Low Alert 150-450 X10E9/L Result Comment: I-R LAB MPV MPV 7.1 7-12 fL Result Comment: I-R LAB NEUT NEUTROPHILS RELATIVE PERCENT BY AUTOMATED COUNT 81.2 % LAB LYMP LYMPHOCYTES RELATIVE PERCENT BY AUTOMATED COUNT 12.6 % LAB MONO MONOCYTES RELATIVE PERCENT BY AUTOMATED COUNT 5.9 % LAB EOS EOSINOPHILS RELATIVE PERCENT BY AUTOMATED COUNT 0.0 % LAB BASO BASOPHILS RELATIVE PERCENT BY AUTOMATED COUNT 0.3 % LAB ANEUT NEUTROPHILS ABSOLUTE COUNT BY AUTOMATED COUNT 10.3 10*3/uL LAB ALYMP LYMPHOCYTES ABSOLUTE COUNT (10*3/UL) BY AUTOMATED COUNT 1.6 10*3/uL LAB AMONO MONOCYTES ABSOLUTE COUNT (10*3/UL) BY AUTOMATED COUNT 0.7 10*3/uL LAB AEOS EOSINOPHILS ABSOLUTE COUNT (10*3/UL) BY AUTOMATED COUNT 0.0 10*3/uL LAB ABASO BASOPHILS ABSOLUTE COUNT (10*3/UL) BY AUTOMATED COUNT 0.0 10*3/uL LAB FRAG CELLAVISION RBC FRAGMENTS 1+ LAB DTYPE CELLAVISION DIFFERENTIAL TYPE AUTOMATED DIFFERENTIAL Performed By: #### CBCA #### [facility] ([facility]) [address] [place] [address] [address] [place] [address] VIR RETICULOCYTES Collected: 12/28/2024 11:43 PM Status: COMPLETED Source: [facility] TYPE CODE TESTS RESULT OUT OF RANGE REFERENCE UNITS LAB RETIC RETICULOCYTE COUNT 2.5 High 0.4-2.2 % Performed By: #### RETIC ### # [facility] ([facility]) [address] [place] [address] [address] [place] [address] VIR CBC WITH AUTO DIFFERENTIAL Collected: 0 12/28/2024 3:59 PM Status: COMPLETED Source: [facility] TYPE CODE TESTS RESULT OUT OF RANGE REFERENCE UNITS LAB WBC WBC 11.0 4-11 x10E9/L LAB RBC RBC COUNT 3.90 3.8-5.2 X10E12/L LAB HGB HEMOGLOBIN 11.1 Low 11.7-15.5 g/dL LAB HCT HEMATOCRIT 33.3 Low 35-47 % LAB MCV MCV 85 80-100 fL LAB MCH MCH 28.5 27-34 pg LAB MCHC MCHC 33.4 32-36 g/dL LAB RDW RDW 14.9 11.5-15 % LAB PLTC PLATELET COUNT 33 Low 150-450 X10E9/L Result Comment: I-R LAB MPV MPV 6.8 Low 7-12 fL Result Comment: I-R LAB NEUT NEUTROPHILS RELATIVE PERCENT BY AUTOMATED COUNT 86.3 % Result Comment: This is an a ppended report. These results have been appended to a previously preliminary verified report. LAB LYMP LYMPHOCYTES RELATIVE PERCENT BY AUTOMATED COUNT 10.9 % Result Comment: This is an a ppended report. These results have been appended to a previously preliminary verified report. LAB MONO MONOCYTES RELATIVE PERCENT BY AUTOMATED COUNT 2.6 % Result Comment: This is an a ppended report. These results have been appended to a previously preliminary verified report. LAB EOS EOSINOPHILS RELATIVE PERCENT BY AUTOMATED COUNT 0.1 % Result Comment: This is an a ppended report. These results have been appended to a previously preliminary verified report. LAB BASO BASOPHILS RELATIVE PERCENT BY AUTOMATED COUNT 0.1 % Result Comment: This is an a ppended report. These results have been appended to a previously preliminary verified report. LAB ANEUT NEUTROPHILS ABSOLUTE COUNT BY AUTOMATED COUNT 9.5 10*3/uL Result Comment: This is an a ppended report. These results have been appended to a previously preliminary verified report. LAB ALYMP LYMPHOCYTES ABSOLUTE COUNT (10*3/UL) BY AUTOMATED COUNT 1.2 10*3/uL Result Comment: This is an a ppended report. These results have been appended to a previously preliminary verified report. LAB AMONO MONOCYTES ABSOLUTE COUNT (10*3/UL) BY AUTOMATED COUNT 0.3 10*3/uL Result Comment: This is an a ppended report. These results have been appended to a previously preliminary verified report. LAB AEOS EOSINOPHILS ABSOLUTE COUNT (10*3/UL) BY AUTOMATED COUNT 0.0 10*3/uL Result Comment: This is an a ppended report. These results have been appended to a previously preliminary verified report. LAB ABASO BASOPHILS ABSOLUTE COUNT (10*3/UL) BY AUTOMATED COUNT 0.0 10*3/uL Result Comment: This is an a ppended report. These results have been appended to a previously preliminary verified report. LAB DTYPE CELLAVISION DIFFERENTIAL TYPE AUTOMATED DIFFERENTIAL Result Comment: This is an a ppended report. These results have been appended to a previously preliminary verified report. Performed By: #### CBCA #### [facility] ([facility]) [address] [place] [address] VIR FIBRINOGEN Collected: 12/28/2024 9:21 AM S tatus: COMPLETED Source: [facility] TYPE CODE TESTS RESULT OUT OF RANGE REFERENCE UNITS LAB FIBR FIBRINOGEN 336 190-480 mg/dL Performed By: #### FIBR #### [facility] ([facility]) [facility] [address] [place] [address] VIR CBC WITH AUTO DIFFERENTIAL Collected: 0 12/28/2024 9:21 AM Status: COMPLETED Source: [facility] TYPE CODE TESTS RESULT OUT OF RANGE REFERENCE UNITS LAB WBC WBC 12.9 High 4-11 x10E9/L LAB RBC RBC COUNT 3.97 3.8-5.2 X10E12/L LAB HGB HEMOGLOBIN 11.2 Low 11.7-15.5 g/dL LAB HCT HEMATOCRIT 33.8 Low 35-47 % LAB MCV MCV 85 80-100 fL LAB MCH MCH 28.2 27-34 pg LAB MCHC MCHC 33.2 32-36 g/dL LAB RDW RDW 15.1 High 11.5-15 % LAB PLTC PLATELET COUNT 43 Low 150-450 X10E9/L Result Comment: I-R LAB MPV MPV 7.3 7-12 fL Result Comment: I-R LAB NEUT NEUTROPHILS RELATIVE PERCENT BY AUTOMATED COUNT 71.0 % LAB LYMP LYMPHOCYTES RELATIVE PERCENT BY AUTOMATED COUNT 19.6 % LAB MONO MONOCYTES RELATIVE PERCENT BY AUTOMATED COUNT 8.5 % LAB EOS EOSINOPHILS RELATIVE PERCENT BY AUTOMATED COUNT 0.4 % LAB BASO BASOPHILS RELATIVE PERCENT BY AUTOMATED COUNT 0.5 % LAB ANEUT NEUTROPHILS ABSOLUTE COUNT BY AUTOMATED COUNT 9.1 10*3/uL LAB ALYMP LYMPHOCYTES ABSOLUTE COUNT (10*3/UL) BY AUTOMATED COUNT 2.5 10*3/uL LAB AMONO MONOCYTES ABSOLUTE COUNT (10*3/UL) BY AUTOMATED COUNT 1.1 10*3/uL LAB AEOS EOSINOPHILS ABSOLUTE COUNT (10*3/UL) BY AUTOMATED COUNT 0.1 10*3/uL LAB ABASO BASOPHILS ABSOLUTE COUNT (10*3/UL) BY AUTOMATED COUNT 0.1 10*3/uL LAB DTYPE CELLAVISION DIFFERENTIAL TYPE AUTOMATED DIFFERENTIAL Performed By: #### CBCA #### [facility] ([facility]) [address] [place] [address] VIR US ABDOMEN LMTD Observed: 12/28/2024 6:02 AM Status: COMPLETED Source: [facility] US ABDOMEN LMTD US ABDOMEN LMTD HISTORY: Thrombocytopenia COMPARISON: None TECHNIQUE: Multiple real-time grayscale images were obtained in transverse and sagittal projections. Color Doppler was used. FINDINGS: Diffusely increased hepatic echogenicity compatible with hepatocellular disease. Although nonspecific, this is most likely secondary to steatosis. Within these limits, no focal hepatic lesion demonstrated. No intrahepatic biliary dilatation. The common bile duct is not dilated and measures 0.5 cm. Main portal vein is patent with appropriate [...] Prince Orozco DO on 12/28/2024 7:56 AM COMPREHENSIVE METABOLIC PANEL Collected: 2024 3:39 AM Status: COMPLETED Source: [facility] TYPE CODE TESTS RESULT OUT OF RANGE REFERENCE UNITS LAB NA SODIUM 138 134-146 mmol/L LAB K POTASSIUM 4.4 3.5-5.0 mmol/L LAB CL CHLORIDE 107 98-109 mmol/L LAB CO2 CARBON DIOXIDE 22 22-32 mmol/L LAB AGAP ANION GAP 9 5-15 mmol/L LAB BUN BLOOD UREA NITROGEN 14 5-23 mg/dL LAB CRET CREATININE 1.00 0.40-1.00 mg/dL Result Comment: METHOD TRACE ABLE TO IDMS STANDARD LAB GLU GLUCOSE 137 High 65-99 mg/dL LAB CA CALCIUM 9.3 8.5-10.5 mg/dL LAB TP TOTAL PROTEIN 6.1 6.0-8.0 g/dL LAB ALB ALBUMIN 3.8 3.2-5.3 g/dL LAB ALK ALKALINE PHOSPHATASE 65 39-130 U/L LAB AST AST 14 <=41 U/L LAB ALT ALT 11 <=31 U/L LAB TBIL BILIRUBIN,TOTAL 0.8 0.3-1.2 mg/dL LAB EGFR EGFR (CKD-EPI) NON-RACE DEPENDENT 70 >=60 ml/min/1 .73sq.m Result Comment: Reported eGF R is based on the CKD-EPI 2020 equation that does not use a race coefficient. Performed By: #### CMP #### [facility] ([facility]) [address] [place] [address] VIR CBC WITH AUTO DIFFERENTIAL Collected: 0 12/28/2024 3:39 AM Status: COMPLETED Source: [facility] TYPE CODE TESTS RESULT OUT OF RANGE REFERENCE UNITS LAB WBC WBC 12.0 High 4-11 x10E9/L LAB RBC RBC COUNT 3.90 3.8-5.2 X10E12/L LAB HGB HEMOGLOBIN 11.2 Low 11.7-15.5 g/dL LAB HCT HEMATOCRIT 33.8 Low 35-47 % LAB MCV MCV 87 80-100 fL LAB MCH MCH 28.8 27-34 pg LAB MCHC MCHC 33.2 32-36 g/dL LAB RDW RDW 15.3 High 11.5-15 % LAB PLTC PLATELET COUNT 32 Low 150-450 X10E9/L LAB MPV MPV 6.5 Low 7-12 fL LAB NEUT NEUTROPHILS RELATIVE PERCENT BY AUTOMATED COUNT 80.2 % LAB LYMP LYMPHOCYTES RELATIVE PERCENT BY AUTOMATED COUNT 12.6 % LAB MONO MONOCYTES RELATIVE PERCENT BY AUTOMATED COUNT 6.9 % LAB EOS EOSINOPHILS RELATIVE PERCENT BY AUTOMATED COUNT 0.1 % LAB BASO BASOPHILS RELATIVE PERCENT BY AUTOMATED COUNT 0.2 % LAB ANEUT NEUTROPHILS ABSOLUTE COUNT BY AUTOMATED COUNT 9.7 10*3/uL LAB ALYMP LYMPHOCYTES ABSOLUTE COUNT (10*3/UL) BY AUTOMATED COUNT 1.5 10*3/uL LAB AMONO MONOCYTES ABSOLUTE COUNT (10*3/UL) BY AUTOMATED COUNT 0.8 10*3/uL LAB AEOS EOSINOPHILS ABSOLUTE COUNT (10*3/UL) BY AUTOMATED COUNT 0.0 10*3/uL LAB ABASO BASOPHILS ABSOLUTE COUNT (10*3/UL) BY AUTOMATED COUNT 0.0 10*3/uL LAB DTYPE CELLAVISION DIFFERENTIAL TYPE AUTOMATED DIFFERENTIAL Performed By: #### CBCA #### [facility] ([facility]) [address] [place] [id number] VIR HIV 1 AND 2 AB/AG SCREEN (P2 4 AG) Collected: 12/28/2024 3:39 AM Status: COMPLETED Source: [facility] Order Comment: This informat ion has been disclosed to you from confidential records protected from disclosure by state law. You shall make no further disclosure of this information without the specific, written and informed release of the individual to whom it pertains, or as otherwise permitted by state law. A general authorization for the release of medical or other information is not sufficient for the purpose of the release of HIV test results or diagnoses. TYPE CODE TESTS RESULT OUT OF RANGE REFERENCE UNITS LAB HIV4 HIV 1 AND 2 AB/AG SCREEN Non-Reactive Non-Reactive Performed By: #### HIV4 #### [facility] ([facility]) [address] [place] [id number] VIR HEPATITIS PANEL, ACUTE Collected: 12/28/2024 3: 39 AM Status: COMPLETED Source: [facility] TYPE CODE TESTS RESULT OUT OF RANGE REFERENCE UNITS LAB HBAG HEPATITIS B SURF AG Non-Reactive Non-Reactive LAB HAVM HEPATITIS A IGM Non-Reactive Non-Reactive LAB HBCM HEPATITIS B CORE IGM Non-Reactive Non-Reactive LAB HCV ANTI HCV W/PCR REFLX Non-Reactive Non-Reactive Result Comment: If recent in fection suspected, recommend repeat testing (>2 months). Fdlezs-rw-yhrofp ratio is <1.0. Performed By: #### AHP #### [facility] ([facility]) [address] [place] [address] VIR LUDIN SCREEN W/ REFLEX Collected: 12/28/2024 3:39 AM Status: COMPLETED Source: [facility] Order Comment: Testing perfo rmed using multiplex flow immunoassay. Eleven difference antigens associated with systemic autoimmunie diseases (dsDNA, Sm, Sm/CARGO CHECKER, CARGO CHECKER, Chromatin, SSA, SSB, Diane-1, Sc170, Ribo P, Centromere B) are included in this sreening tests. TYPE CODE TESTS RESULT OUT OF RANGE REFERENCE UNITS LAB LUDIN LUDIN SCREEN W/REFLEX Negative Negative Performed By: #### LUDIN #### [facility] ([facility]) [address] [place] [address] VIR CBC WITH AUTO DIFFERENTIAL Collected: 0 12/28/2024 12:10 AM Status: COMPLETED Source: [facility] TYPE CODE TESTS RESULT OUT OF RANGE REFERENCE UNITS LAB WBC WBC 9.2 4-11 x10E9/L LAB RBC RBC COUNT 3.96 3.8-5.2 X10E12/L LAB HGB HEMOGLOBIN 11.3 Low 11.7-15.5 g/dL LAB HCT HEMATOCRIT 33.8 Low 35-47 % LAB MCV MCV 85 80-100 fL LAB MCH MCH 28.4 27-34 pg LAB MCHC MCHC 33.3 32-36 g/dL LAB RDW RDW 14.7 11.5-15 % LAB PLTC PLATELET COUNT 34 Low 150-450 X10E9/L LAB MPV MPV 6.6 Low 7-12 fL LAB NEUT NEUTROPHILS RELATIVE PERCENT BY AUTOMATED COUNT 86.0 % Result Comment: This is an a ppended report. These results have been appended to a previously preliminary verified report. LAB LYMP LYMPHOCYTES RELATIVE PERCENT BY AUTOMATED COUNT 10.6 % Result Comment: This is an a ppended report. These results have been appended to a previously preliminary verified report. LAB MONO MONOCYTES RELATIVE PERCENT BY AUTOMATED COUNT 2.8 % Result Comment: This is an a ppended report. These results have been appended to a previously preliminary verified report. LAB EOS EOSINOPHILS RELATIVE PERCENT BY AUTOMATED COUNT 0.1 % Result Comment: This is an a ppended report. These results have been appended to a previously preliminary verified report. LAB BASO BASOPHILS RELATIVE PERCENT BY AUTOMATED COUNT 0.5 % Result Comment: This is an a ppended report. These results have been appended to a previously preliminary verified report. LAB ANEUT NEUTROPHILS ABSOLUTE COUNT BY AUTOMATED COUNT 7.9 10*3/uL Result Comment: This is an a ppended report. These results have been appended to a previously preliminary verified report. LAB ALYMP LYMPHOCYTES ABSOLUTE COUNT (10*3/UL) BY AUTOMATED COUNT 1.0 10*3/uL Result Comment: This is an a ppended report. These results have been appended to a previously preliminary verified report. LAB AMONO MONOCYTES ABSOLUTE COUNT (10*3/UL) BY AUTOMATED COUNT 0.3 10*3/uL Result Comment: This is an a ppended report. These results have been appended to a previously preliminary verified report. LAB AEOS EOSINOPHILS ABSOLUTE COUNT (10*3/UL) BY AUTOMATED COUNT 0.0 10*3/uL Result Comment: This is an a ppended report. These results have been appended to a previously preliminary verified report. LAB ABASO BASOPHILS ABSOLUTE COUNT (10*3/UL) BY AUTOMATED COUNT 0.0 10*3/uL Result Comment: This is an a ppended report. These results have been appended to a previously preliminary verified report. LAB DTYPE CELLAVISION DIFFERENTIAL TYPE AUTOMATED DIFFERENTIAL Result Comment: This is an a ppended report. These results have been appended to a previously preliminary verified report. Performed By: #### CBCA #### [facility] ([facility]) [address] [place] [address] VIR MR BRAIN WO CONT Observed: 12/27/2024 11:05 PM Status: COMPLETED Source: [facility] MR BRAIN WO CONT STUDY: MRI brain without contrast CLINICAL HISTORY: Stroke. Thrombectomy December 26, 2024 COMPARISON:May 21, 2013 Procedure: Multiplanar, multisequence imaging performed through the brain, without IV contrast. Findings: There are no intracranial masses, mass-effect, extra-axial fluid collection, or hydrocephalus. Sensitivity for acute hemorrhage limited on MRI, but grossly no acute hemorrhage identified. Midline sagittal structures are negative including pituitary fossa, infundibulum, optic chiasm, corpus callosum, brainstem, fourth ventricle, cerebellum, and cranio-cervical junction. There are appropriate flow voids in large cerebral vessels on T2 weighted imaging. Punctate restricted diffusion within the right occipital lobe suggests a acute lacunar infarct axial image 31 series 8. Similar lacunar infarct left insular cortex axial image 37 IMPRESSION: * Acute lacunar infarcts left insular cortex and right occipital lobe suggesting embolic phenomenon. No other acute findings. * Note is again made an empty sella morphology which can be physiologic but can also be seen with idiopathic intracranial hypertension and best assessed in combination with other clinical data Finalized by Juanpablo Scanlon MD on 12/28/2024 5:59 AM CBC WITH AUTO DIFFERENTIAL Collected: 0 12/27/2024 3:46 PM Status: COMPLETED Source: [facility] TYPE CODE TESTS RESULT OUT OF RANGE REFERENCE UNITS LAB WBC WBC 7.1 4-11 x10E9/L LAB RBC RBC COUNT 4.17 3.8-5.2 X10E12/L LAB HGB HEMOGLOBIN 11.8 11.7-15.5 g/dL LAB HCT HEMATOCRIT 36.0 35-47 % LAB MCV MCV 86 80-100 fL LAB MCH MCH 28.3 27-34 pg LAB MCHC MCHC 32.8 32-36 g/dL LAB RDW RDW 15.0 11.5-15 % LAB PLTC PLATELET COUNT 34 Low 150-450 X10E9/L LAB MPV MPV 6.4 Low 7-12 fL LAB NEUT NEUTROPHILS RELATIVE PERCENT BY AUTOMATED COUNT 87.4 % Result Comment: This is an a ppended report. These results have been appended to a previously preliminary verified report. LAB LYMP LYMPHOCYTES RELATIVE PERCENT BY AUTOMATED COUNT 10.6 % Result Comment: This is an a ppended report. These results have been appended to a previously preliminary verified report. LAB MONO MONOCYTES RELATIVE PERCENT BY AUTOMATED COUNT 1.3 % Result Comment: This is an a ppended report. These results have been appended to a previously preliminary verified report. LAB EOS EOSINOPHILS RELATIVE PERCENT BY AUTOMATED COUNT 0.3 % Result Comment: This is an a ppended report. These results have been appended to a previously preliminary verified report. LAB BASO BASOPHILS RELATIVE PERCENT BY AUTOMATED COUNT 0.4 % Result Comment: This is an a ppended report. These results have been appended to a previously preliminary verified report. LAB ANEUT NEUTROPHILS ABSOLUTE COUNT BY AUTOMATED COUNT 6.2 10*3/uL Result Comment: This is an a ppended report. These results have been appended to a previously preliminary verified report. LAB ALYMP LYMPHOCYTES ABSOLUTE COUNT (10*3/UL) BY AUTOMATED COUNT 0.8 10*3/uL Result Comment: This is an a ppended report. These results have been appended to a previously preliminary verified report. LAB AMONO MONOCYTES ABSOLUTE COUNT (10*3/UL) BY AUTOMATED COUNT 0.1 10*3/uL Result Comment: This is an a ppended report. These results have been appended to a previously preliminary verified report. LAB AEOS EOSINOPHILS ABSOLUTE COUNT (10*3/UL) BY AUTOMATED COUNT 0.0 10*3/uL Result Comment: This is an a ppended report. These results have been appended to a previously preliminary verified report. LAB ABASO BASOPHILS ABSOLUTE COUNT (10*3/UL) BY AUTOMATED COUNT 0.0 10*3/uL Result Comment: This is an a ppended report. These results have been appended to a previously preliminary verified report. LAB DTYPE CELLAVISION DIFFERENTIAL TYPE AUTOMATED DIFFERENTIAL Result Comment: This is an a ppended report. These results have been appended to a previously preliminary verified report. Performed By: #### CBCA #### [facility] ([facility]) [address] [place] [address] VIR HEMOSIDERIN, RANDOM, URINE Collected: 0 12/27/2024 3:19 PM Status: COMPLETED Source: [facility] TYPE CODE TESTS RESULT OUT OF RANGE REFERENCE UNITS LAB HSDU HEMOSIDERIN, URINE Negative Negative Result Comment: ADDITIONAL INFORMATION This test was developed and its performance characteristics determined by [facility] in a manner consistent with CLIA requirements. This test has not been cleared or approved by the U.S. Food and Drug Administration. Test Performed by: [address] [address] Grain Unloader: Gladys Alcocer Ph.D.; CLIA# [id number] Performed By: #### UHSD1 ### # [facility] [place] ([facility]) [address] [place] [address] VIR POTASSIUM Collected: 12/27/2024 9:53 AM S tatus: COMPLETED Source: [facility] TYPE CODE TESTS RESULT OUT OF RANGE REFERENCE UNITS LAB K POTASSIUM 4.4 3.5-5.0 mmol/L Performed By: #### K #### [facility] ([facility]) [address] [place] [address] VIR UNLISTED LAB TEST Collected: 12/27/2024 9:53 AM Stat us: X Source: [facility] TYPE CODE TESTS RESULT OUT OF RANGE REFERENCE UNITS LAB LOOK(LOINC) UNLISTED LAB TEST LOOK UNLISTED LAB TEST Cancelled DIRECT UDAY Collected: 12/27/2024 9:53 AM Status: COMPLETED Source: [facility] TYPE CODE TESTS RESULT OUT OF RANGE REFERENCE UNITS LAB PB POLYSPECIFIC PB Negative Performed By: #### DATB #### [facility] ([facility]) [address] [place] [address] VIR VITAMIN B12 Collected: 12/27/2024 9:53 AM S tatus: COMPLETED Source: [facility] TYPE [facility] TESTS RESULT OUT OF RANGE REFERENCE UNITS LAB B12 VITAMIN B12 254 180-914 pg/mL Performed By: #### B12 #### [facility] ([facility]) [address] [place] [address] VIR FOLATE Collected: 12/27/2024 9:53 AM S tatus: COMPLETED Source: [facility] TYPE [facility] TESTS RESULT OUT OF RANGE REFERENCE UNITS LAB FOLI FOLIC ACID 11.6 >5.8 ng/mL Performed By: #### FOLI #### [facility] ([facility]) [address] [place] [address] VIR LDH Collected: 12/27/2024 9:53 AM S tatus: COMPLETED Source: [facility] TYPE CODE TESTS RESULT OUT OF RANGE REFERENCE UNITS LAB LDH LDH 302 High 100-235 U/L Performed By: #### LDH #### [facility] ([facility]) [address] [place] [address] VIR ARUP GENERIC ORDER #1 Collected: 12/27/2024 9:5 3 AM Status: COMPLETED Source: [facility] TYPE CODE TESTS RESULT OUT OF RANGE REFERENCE UNITS LAB ARPRES TEST RESULT SEE NOTE Result Comment: Test name R benito Flag Units RefIntvl Hemoglobin, Plasma 5.4 mg/dL 0.0-9.7 Performed By: [email or web address] [address] [place] [address] Auto Emissions Technician: Nacho Kapadia MD, PhD CLIA Number: [id number] Performed By: #### AGO #### [employer] ([facility]) [address] [place] [address] VIR [id number] ACTIVITY AND INHIBI TOR PROFILE Collected: 12/27/2024 9:53 AM Status: COMPLETED Source: [facility] TYPE CODE TESTS RESULT OUT OF RANGE REFERENCE UNITS LAB ADM13A [id number] ACTIVITY <5 Low >=70 % Result Comment: ADDITIONAL INFORMATION This test was developed and its performance characteristics determined by [facility] in a manner consistent with CLIA requirements. This test has not been cleared or approved by the U.S. Food and Drug Administration. LAB ADM13I [id number] ACTIVIT Y INTERPRETATION DNR LAB ADM13N [id number] ASSAY INTERPRETATION SEE COMMENTS Result Comment: Please see A DAMTS13 Profile Interpretation for summary of NRVCQZ45 Activity and [id number] Inhibitor Titer results. Test Performed by: [facility] [place] [address] Grain Unloader: Gladys Alcocer Ph.D.; CLIA# [id number] LAB ADM13C [id number] ASSAY CANCEL INTERPRETATION DNR Performed By: #### ADM13 ### # [facility] [place] ([facility]) [address] [place] [address] VIR [id number] INHIBITOR BETHESDA TITER Colle cted: 12/27/2024 9:53 AM Status: COMPLETED Source: [facility] TYPE CODE TESTS RESULT OUT OF RANGE REFERENCE UNITS LAB ADMBT [id number] INHIBITOR TITER 0.6 High <0.5 BU Result Comment: ADDITIONAL INFORMATION This test was developed and its performance characteristics determined by [facility] in a manner consistent with CLIA requirements. This test has not been cleared or approved by the U.S. Food and Drug Administration. Test Performed by: [place] [address] Grain Unloader: Gladys Alcocer Ph.D.; CLIA# [id number] Performed By: #### ADMBU ### # [facility] [place] ([facility]) [address] [place], [place] [address] VIR [id number] INHIBITOR SCREEN Collected: 12/27/2024 9:53 AM Status: COMPLETED Source: [facility] TYPE CODE TESTS RESULT OUT OF RANGE REFERENCE UNITS LAB ADMISR [id number] PROFILE INTERPRETATION SEE COMMENTS Result Comment: Severely red uced GMLWUV68 activity can be observed in congenital/hereditary or acquired, autoimmune thrombotic thrombocytopenia purpura (TTP), or occasionally in other conditions including hemolytic uremic syndrome (HUS), hematopoietic stem cell and solid organ transplantation, liver disease, sepsis, DIC, , or effects of certain medications (e.g., ticlopidine, clopidogrel, cyclosporin, mitomycin C, quinine, etc.). The BPJXIG86 inhibitor titering assay ([place] assay) confirms presence of an inhibitor. These results are consistent with congenital/hereditary TTP or acquired TTP with a neutralizing antibody. Recommend clinical correlation and consider future repeat testing to follow/verify these findings if clinically indicated. Non-specific substrate proteolysis by other plasma proteases or recent plasma transfusion or plasma exchange may falsely raise MUCZQY10 activity. Markedly elevated endogenous von Willebrand factor (VWF), hyperlipidemia, hyperbilirubinemia (greater than 6mg/dL) may falsely lower TWSTXF79 activity. Test Performed by: [place] [address] Grain Unloader: Gladys Alcocer Ph.D.; CLIA# [id number] LAB AADMAB [id number] CANCEL INTERPRETATION DNR Performed By: #### ADMIS ### # [facility] [place] ([facility]) [address] [place] [address] BRAIN WO CONT Observed: 12/27/2024 7:06 AM Status: COMPLETED Source: [facility] CT BRAIN WO CONT STUDY: CT HEAD WITHOUT CONTRAST CLINICAL HISTORY: [...] CT perfusion. No significant mass effect or midline shift at this point. All CT scans at this facility use dose modulation, iterative reconstruction, and/or weight based dosing when appropriate to reduce radiation dose to as low as reasonably achievable. Finalized by Mando Hicks MD on 12/27/2024 7:30 AM PLATELET COUNT Collected: 12/27/2024 6:03 AM S tatus: COMPLETED Source: [facility] TYPE CODE TESTS RESULT OUT OF RANGE REFERENCE UNITS LAB PLTC PLATELET COUNT 39 Low 150-450 X10E9/L Performed By: #### PLTCT ### # [facility] ([facility]) [address] [place] [address] VIR CBC WITH AUTO DIFFERENTIAL Collected: 0 12/27/2024 6:03 AM Status: COMPLETED Source: [facility] TYPE CODE TESTS RESULT OUT OF RANGE REFERENCE UNITS LAB WBC WBC 6.8 4-11 x10E9/L LAB RBC RBC COUNT 3.97 3.8-5.2 X10E12/L LAB HGB HEMOGLOBIN 11.2 Low 11.7-15.5 g/dL LAB HCT HEMATOCRIT 34.1 Low 35-47 % LAB MCV MCV 86 80-100 fL LAB MCH MCH 28.1 27-34 pg LAB MCHC MCHC 32.7 32-36 g/dL LAB RDW RDW 14.9 11.5-15 % LAB PLTC PLATELET COUNT 42 Low 150-450 X10E9/L LAB MPV MPV 6.9 Low 7-12 fL LAB NEUT NEUTROPHILS RELATIVE PERCENT BY AUTOMATED COUNT 61.7 % LAB LYMP LYMPHOCYTES RELATIVE PERCENT BY AUTOMATED COUNT 26.6 % LAB MONO MONOCYTES RELATIVE PERCENT BY AUTOMATED COUNT 8.4 % LAB EOS EOSINOPHILS RELATIVE PERCENT BY AUTOMATED COUNT 2.9 % LAB BASO BASOPHILS RELATIVE PERCENT BY AUTOMATED COUNT 0.4 % LAB ANEUT NEUTROPHILS ABSOLUTE COUNT BY AUTOMATED COUNT 4.2 10*3/uL LAB ALYMP LYMPHOCYTES ABSOLUTE COUNT (10*3/UL) BY AUTOMATED COUNT 1.8 10*3/uL LAB AMONO MONOCYTES ABSOLUTE COUNT (10*3/UL) BY AUTOMATED COUNT 0.6 10*3/uL LAB AEOS EOSINOPHILS ABSOLUTE COUNT (10*3/UL) BY AUTOMATED COUNT 0.2 10*3/uL LAB ABASO BASOPHILS ABSOLUTE COUNT (10*3/UL) BY AUTOMATED COUNT 0.0 10*3/uL LAB DTYPE CELLAVISION DIFFERENTIAL TYPE AUTOMATED DIFFERENTIAL Performed By: #### CBCA #### [facility] ([facility]) [address] [place] [address] VIR COMPREHENSIVE METABOLIC PANEL Collected: 2024 3:35 AM Status: COMPLETED Source: [facility] TYPE CODE TESTS RESULT OUT OF RANGE REFERENCE UNITS LAB NA SODIUM 138 134-146 mmol/L LAB K POTASSIUM 3.8 3.5-5.0 mmol/L LAB CL CHLORIDE 106 98-109 mmol/L LAB CO2 CARBON DIOXIDE 24 22-32 mmol/L LAB AGAP ANION GAP 8 5-15 mmol/L LAB BUN BLOOD UREA NITROGEN 12 5-23 mg/dL LAB CRET CREATININE 0.91 0.40-1.00 mg/dL Result Comment: METHOD TRACE ABLE TO IDMS STANDARD LAB GLU GLUCOSE 139 High 65-99 mg/dL LAB CA CALCIUM 8.9 8.5-10.5 mg/dL LAB TP TOTAL PROTEIN 5.7 Low 6.0-8.0 g/dL LAB ALB ALBUMIN 3.6 3.2-5.3 g/dL LAB ALK ALKALINE PHOSPHATASE 58 39-130 U/L LAB AST AST 18 <=41 U/L LAB ALT ALT 13 <=31 U/L LAB TBIL BILIRUBIN,TOTAL 0.7 0.3-1.2 mg/dL LAB EGFR EGFR (CKD-EPI) NON-RACE DEPENDENT 78 >=60 ml/min/1 .73sq.m Result Comment: Reported eGF R is based on the CKD-EPI 2020 equation that does not use a race coefficient. Performed By: #### CMP #### [facility] ([facility]) [address] [place] [address] VIR LIPID PROFILE Collected: 12/27/2024 3:35 AM Status: COMPLETED Source: [facility] Order Comment: fasting TYPE CODE TESTS RESULT OUT OF RANGE REFERENCE UNITS LAB CHOL CHOLESTEROL 156 150-200 mg/dL LAB TRIG TRIGLYCERIDE 123 27-150 mg/dL LAB HDL HDL CHOLESTEROL 36 Low >39 mg/dL Result Comment: HDL <40 mg/d L - High Risk HDL > or = 40mg/dL- Desirable HDL >60 mg/dL - Negative Risk LAB LDL LDL (CALC) 95 <130 mg/dL Result Comment: LDL <100 mg/ dL - Desirable LDL >160 mg/dL - High Risk LAB CHDL CHOLESTEROL:HDL 4.3 1.0-5.0 NA LAB VLDL VERY LOW LIPOPROTEIN 25 0-30 mg/dL Performed By: #### LIPR #### [facility] ([facility]) [address] [place] [address] VIR LDH Collected: 12/27/2024 3:35 AM S tatus: COMPLETED Source: [facility] TYPE CODE TESTS RESULT OUT OF RANGE REFERENCE UNITS LAB LDH LDH 353 High 100-235 U/L Result Comment: R-Specimen s lightly hemolyzed, results increased Performed By: #### LDH #### [facility] ([facility]) [address] [address] VIR RETICULOCYTES Collected: 12/26/2024 9:08 PM S tatus: COMPLETED Source: [facility] TYPE CODE TESTS RESULT OUT OF RANGE REFERENCE UNITS LAB RETIC RETICULOCYTE COUNT 2.0 0.4-2.2 % Performed By: #### RETIC ### # [facility] ([facility]) [facility] [address] [place] [address] VIR TYPE AND SCREEN Collected: 12/26/2024 9:08 PM Status : C Source: [facility] TYPE CODE TESTS RESULT OUT OF RANGE REFERENCE UNITS LAB ABO_INTEP ABO_INTEP O LAB RH_INTEP RH_INTEP Negative LAB ABSC_INTEP ANTIBODY SCREEN Negative Performed By: #### TSC #### [facility] ([facility]) [address] [place] [address] VIR HAPTOGLOBIN Collected: 12/26/2024 9:08 PM S tatus: COMPLETED Source: [facility] TYPE CODE TESTS RESULT OUT OF RANGE REFERENCE UNITS LAB HAPT HAPTOGLOBIN <^30 Low 32-228 mg/dL Performed By: #### HAPT #### [facility] ([facility]) [address] [place] [address] VIR CBC WITH AUTO DIFFERENTIAL Collected: 0 12/26/2024 9:08 PM Status: COMPLETED Source: [facility] TYPE CODE TESTS RESULT OUT OF RANGE REFERENCE UNITS LAB WBC WBC 6.8 4-11 x10E9/L LAB RBC RBC COUNT 4.20 3.8-5.2 X10E12/L LAB HGB HEMOGLOBIN 12.1 11.7-15.5 g/dL LAB HCT HEMATOCRIT 36.2 35-47 % LAB MCV MCV 86 80-100 fL LAB MCH MCH 28.7 27-34 pg LAB MCHC MCHC 33.3 32-36 g/dL LAB RDW RDW 15.0 11.5-15 % LAB PLTC PLATELET COUNT 27 Low Alert 150-450 X10E9/L Result Comment: I-R LAB MPV MPV 7.1 7-12 fL Result Comment: I-R LAB NEUT NEUTROPHILS RELATIVE PERCENT BY AUTOMATED COUNT 54.9 % LAB LYMP LYMPHOCYTES RELATIVE PERCENT BY AUTOMATED COUNT 35.3 % LAB MONO MONOCYTES RELATIVE PERCENT BY AUTOMATED COUNT 6.2 % LAB EOS EOSINOPHILS RELATIVE PERCENT BY AUTOMATED COUNT 2.6 % LAB BASO BASOPHILS RELATIVE PERCENT BY AUTOMATED COUNT 1.0 % LAB ANEUT NEUTROPHILS ABSOLUTE COUNT BY AUTOMATED COUNT 3.7 10*3/uL LAB ALYMP LYMPHOCYTES ABSOLUTE COUNT (10*3/UL) BY AUTOMATED COUNT 2.4 10*3/uL LAB AMONO MONOCYTES ABSOLUTE COUNT (10*3/UL) BY AUTOMATED COUNT 0.4 10*3/uL LAB AEOS EOSINOPHILS ABSOLUTE COUNT (10*3/UL) BY AUTOMATED COUNT 0.2 10*3/uL LAB ABASO BASOPHILS ABSOLUTE COUNT (10*3/UL) BY AUTOMATED COUNT 0.1 10*3/uL LAB DTYPE CELLAVISION DIFFERENTIAL TYPE AUTOMATED DIFFERENTIAL Performed By: #### CBCA #### [facility] ([facility]) [address] [place] [address] VIR PLATELET COUNT Collected: 12/26/2024 9:08 PM S tatus: COMPLETED Source: [facility] TYPE CODE TESTS RESULT OUT OF RANGE REFERENCE UNITS LAB PLTC PLATELET COUNT 14 Low Alert 150-450 X10E9/L Result Comment: I-R Performed By: #### PLTCT ### # [facility] ([facility]) [address] [place] [address] VIR CLINICAL PATHOLOGY BLOOD SME AR REVIEW Collected: 12/26/2024 9:08 PM Status: COMPLETED Source: [facility] TYPE CODE TESTS RESULT OUT OF RANGE REFERENCE UNITS LAB [id number] LAB AP CASE REPORT Result Comment: Clinical Pat hology Report Case: [id number] Authorizing Provider: SMITHA Kiran Collected: 12/26/20242107 Ordering Location: [facility] Received: 12/26/20242107 - GEN 8 ICU Pathologist: Tevin Garcia MD Specimen: Blood, Venous LAB APFNLDIA LAB AP FINAL DIAGNOSIS Result Comment: Peripheral s mear review: Patient with hereditary TTP, and now with: - Reactive neutrophilic leukocytosis, - Mild normocytic anemia with 2% schistocytes/helmet cells - Moderate thrombocytopenia with large young forms, see comment at 1420 EDT LAB [id number] LAB AP DIAGNOSIS COMMENT Result Comment: The CBC and smear review is significant for mild neutrophilic leukocytosis with normal morphology and no left shift, mild to moderate normocytic anemia with mild anisocytosis and 2% schistocytes/helmet cells, and moderate thrombocytopenia with large young forms and no clumps. The patient has hereditary TTP with slightly elevated ADAMST 13 inhibitor. The low haptoglobin and recently elevated LDH indicate hemolysis. However the negative urine hemosiderin militates against significant intravascular hemolysis. The case was discussed with Dr. Manzo on 12/27/2024. LAB [id number] LAB AP EMBEDDED IMAGES Performed By: #### STAFF ### # [facility] ([facility]) [address] [place] [address] VIR BEDSIDE GLUCOSE Collected: 12/26/2024 5:52 PM Status: COMPLETED Source: [facility] TYPE CODE TESTS RESULT OUT OF RANGE REFERENCE UNITS LAB BEDG BEDSIDE GLUCOSE ???BEDG 85 65-99 mg/dL Performed By: #### BEDG #### [facility] ([facility]) [address] [place] [address] CEREBRAL PERF ANALYSIS Observed: 11/29 4:00 PM Status: COMPLETED Source: [facility] CT CEREBRAL PERF ANALYSIS CT BRAIN PERFUSION IMAGING: HISTORY: strke TECHNIQUE: Axial CT brain perfusion was performed during intravenous administration of 40 mL Omnipaque 350. Postprocessing with [employer] and/or [employer] software was used. Specifically, maps of cerebral blood flow, cerebral blood volume, mean transit time and Tmax were calculated by using the perfusion source data. COMPARISON: CT brain same date. Image quality: Sufficient Arterial input function GEMA selected: Proximal left MCA Venous outflow function GEMA: Pomaria of sinuses FINDINGS: CT Perfusion Characteristics: CBF<30% [...] as low as reasonably achievable. Finalized by Prince Orozco DO on 12/26/2024 4:[address] BRAIN WO CONT Observed: 12/26/2024 4:00 PM Status: COMPLETED Source: [facility] CT BRAIN WO CONT CT BRAIN WO CONT CLINICAL HISTORY: Stroke COMPARISON: 12/26/2024 No contrast obtained. Contrast is present from recent contrast enhanced CTA's. FINDINGS: There may be some subtle decreased density identified primarily within the left basal ganglia with decreased differentiation of the lentiform nucleus. At this time the cortex is not affected and wilson-white differentiation of the cortex remains intact. No evidence of intracranial hemorrhage. The [...] left MCA distribution on a recent perfusion scan * All CT scans at this facility use dose modulation, iterative reconstruction, and/or weight based dosing when appropriate to reduce radiation dose to as low as reasonably achievable Finalized by Hi Streeter MD on 12/26/2024 5:09 PM PROTIME AND INR Collected: 12/26/2024 3:32 PM Status: COMPLETED Source: [facility] TYPE CODE TESTS RESULT OUT OF RANGE REFERENCE UNITS LAB PROX PROTIME 10.3 9.8-13.2 sec LAB INR INR 0.9 0.9-1.2 NA Performed By: #### PINR #### [facility] ([address] [address] VIR APTT Collected: 12/26/2024 3:32 PM S tatus: COMPLETED Source: [facility] TYPE CODE TESTS RESULT OUT OF RANGE REFERENCE UNITS LAB PTT APTT 29 26-37 sec Performed By: #### PTT #### [facility] ([address] [address] VIR BASIC METABOLIC PANEL Collected: 12/26/2024 3:3 2 PM Status: COMPLETED Source: [facility] TYPE CODE TESTS RESULT OUT OF RANGE REFERENCE UNITS LAB NA SODIUM 136 134-146 mmol/L LAB K POTASSIUM 3.9 3.5-5.0 mmol/L LAB CL CHLORIDE 104 98-109 mmol/L LAB CO2 CARBON DIOXIDE 26 22-32 mmol/L LAB AGAP ANION GAP 6 5-15 mmol/L LAB BUN BLOOD UREA NITROGEN 16 5-23 mg/dL LAB CRET CREATININE 1.01 High 0.40-1.00 mg/dL Result Comment: METHOD TRACE ABLE TO IDMS STANDARD LAB GLU GLUCOSE 99 65-99 mg/dL LAB CA CALCIUM 9.3 8.5-10.5 mg/dL LAB EGFR EGFR (CKD-EPI) NON-RACE DEPENDENT 69 >=60 ml/min/1. 73sq.m Result Comment: eGFR not rep orted due to non-numeric value for Creatinine. Reported eGFR is based on the CKD-EPI 2020 equation that does not use a race coefficient. Performed By: #### BMP #### [address] [place], [place] [address] CBC WITH AUTO DIFFERENTIAL Collected: 0 12/26/2024 3:32 PM Status: COMPLETED Source: [facility] TYPE CODE TESTS RESULT OUT OF RANGE REFERENCE UNITS LAB WBC WBC 7.5 4-11 x10E9/L LAB RBC RBC COUNT 4.31 3.8-5.2 X10E12/L LAB HGB HEMOGLOBIN 12.5 11.7-15.5 g/dL LAB HCT HEMATOCRIT 37.3 35-47 % LAB MCV MCV 86 80-100 fL LAB MCH MCH 28.9 27-34 pg LAB MCHC MCHC 33.5 32-36 g/dL LAB RDW RDW 15.2 High 11.5-15 % LAB PLTC PLATELET COUNT 32 Low 150-450 X10E9/L Result Comment: M-Platelet c ount reviewed LAB MPV MPV 6.9 Low 7-12 fL LAB NEUT NEUTROPHILS RELATIVE PERCENT BY AUTOMATED COUNT 56.3 % LAB LYMP LYMPHOCYTES RELATIVE PERCENT BY AUTOMATED COUNT 32.7 % LAB MONO MONOCYTES RELATIVE PERCENT BY AUTOMATED COUNT 7.3 % LAB EOS EOSINOPHILS RELATIVE PERCENT BY AUTOMATED COUNT 3.0 % LAB BASO BASOPHILS RELATIVE PERCENT BY AUTOMATED COUNT 0.7 % LAB ANEUT NEUTROPHILS ABSOLUTE COUNT BY AUTOMATED COUNT 4.2 10*3/uL LAB ALYMP LYMPHOCYTES ABSOLUTE COUNT (10*3/UL) BY AUTOMATED COUNT 2.5 10*3/uL LAB AMONO MONOCYTES ABSOLUTE COUNT (10*3/UL) BY AUTOMATED COUNT 0.6 10*3/uL LAB AEOS EOSINOPHILS ABSOLUTE COUNT (10*3/UL) BY AUTOMATED COUNT 0.2 10*3/uL LAB ABASO BASOPHILS ABSOLUTE COUNT (10*3/UL) BY AUTOMATED COUNT 0.0 10*3/uL LAB DTYPE CELLAVISION DIFFERENTIAL TYPE AUTOMATED DIFFERENTIAL Performed By: #### CBCA #### [facility] ([facility]) [address] [place] [address] VIR COMPREHENSIVE METABOLIC PANEL Collected: 2024 3:32 PM Status: COMPLETED Source: [facility] TYPE CODE TESTS RESULT OUT OF RANGE REFERENCE UNITS LAB NA SODIUM 138 134-146 mmol/L LAB K POTASSIUM 3.9 3.5-5.0 mmol/L LAB CL CHLORIDE 106 98-109 mmol/L LAB CO2 CARBON DIOXIDE 26 22-32 mmol/L LAB AGAP ANION GAP 6 5-15 mmol/L LAB BUN BLOOD UREA NITROGEN 15 5-23 mg/dL LAB CRET CREATININE 1.08 High 0.40-1.00 mg/dL Result Comment: METHOD TRACE ABLE TO IDMS STANDARD LAB GLU GLUCOSE 100 High 65-99 mg/dL LAB CA CALCIUM 9.5 8.5-10.5 mg/dL LAB TP TOTAL PROTEIN 6.9 6.0-8.0 g/dL LAB ALB ALBUMIN 4.0 3.2-5.3 g/dL LAB ALK ALKALINE PHOSPHATASE 83 39-130 U/L LAB AST AST 20 <=41 U/L LAB ALT ALT 17 <=31 U/L LAB TBIL BILIRUBIN,TOTAL 0.9 0.3-1.2 mg/dL LAB EGFR EGFR (CKD-EPI) NON-RACE DEPENDENT 64 >=60 ml/min/1 .73sq.m Result Comment: eGFR not rep orted due to non-numeric value for Creatinine. Reported eGFR is based on the CKD-EPI 2021 equation that does not use a race coefficient. Performed By: #### CMP #### [facility] ([address] [address] VIR TROPONIN I, HIGH SENSITIVITY 0 HOUR Collected: 12/26/2024 3:32 PM Status: COMPLETED Source: [facility] TYPE CODE TESTS RESULT OUT OF RANGE REFERENCE UNITS LAB TNIHS TROPONIN I, HIGH SENSITIVITY 373 High <16 ng/L Performed By: #### [email or web address] ## ## [facility] ([facility]) [address] [place] [address] VIR XR CHEST 1 VIEW STROKE Observed: 025 2:39 PM Status: COMPLETED Source: [facility] XR CHEST 1 VIEW STROKE History: Mental status changes Procedure: Chest AP portable upright Comparison: 10/03/2013 Findings: The heart and lungs show no acute findings, and the mediastinum and darin are grossly negative . No pneumothorax. Impression: No acute pulmonary process. Finalized by Esteban Schulz MD on 12/26/2024 2:[address] BRAIN WO CONT STROKE ALERT Observed: 12/26/2024 2:06 PM Status: COMPLETED Source: [facility] CT BRAIN WO CONT STROKE ALER T CT BRAIN WO CONT STROKE ALERT INDICATION: [...] Mike Cunningham MD on 12/26/2024 2:[address] CTA CAROTID Observed: 12/26/2024 2:06 PM Status: COMPLETED Source: [facility] CT CTA CAROTID CLINICAL INFORMATION: stroke alert TECHNIQUE: CT angiogram performed following intravenous administration of nonionic intravenous contrast. Coronal and sagittal and 3-D volume rendered maximum intensity projection images generated and reviewed under concurrent physician supervision. Automated exposure control utilized. The [place] Symptomatic Carotid Endarterectomy Trial (NASCET) method for calculating the degree of stenosis was utilized for stenosis measurements. All CT scans at this facility use [...] stenosis or occlusion. The origin of the vertebral arteries is patent bilaterally, the vertebral arteries are patent throughout their course in the neck without flow-limiting stenosis or occlusion. Multiple nodules within the parotid glands bilaterally of undetermined clinical significance. IMPRESSION: * No major arterial flow-limiting stenosis or occlusion within the neck. * Multiple nodules within the parotid glands bilaterally of undetermined clinical significance, findings can relate to intraparotid lymph nodes or other primary salivary gland tumors, recommend dedicated evaluation with ultrasound. Finalized by Pedro Rivera MD on 12/26/2024 2:[address] CTA HEAD Observed: 12/26/2024 2:06 PM Status: COMPLETED Source: [facility] CT CTA HEAD CLINICAL INFORMATION: stroke alert TECHNIQUE: CT angiogram of the head was performed following intravenous administration of nonionic intravenous contrast. 3-D maximum intensity projection [...] posterior cerebral arteries are patent bilaterally without flow-limiting stenosis or occlusion. Dural venous sinuses are [...] Pedro Rivera MD on 12/26/2024 2:51 PM XR SPINE THORACIC 3 VWS Observed: 2023 5:37 PM Status: COMPLETED Source: [facility] XR SPINE THORACIC 3 VWS CLINICAL INFORMATION: back pain TECHNIQUE: XR SPINE THORACIC 3 VWS 3 views thoracic spine were obtained. There is no thoracic malalignment or compression. Endplates appear intact. No fracture. Posterior elements unremarkable. IMPRESSION: No acute findings. Finalized by Nicolás Figueroa MD on 08/15/2024 5:43 PM XR SPINE CERVICAL 3 VWS OR LESS Observed: 05/12/2024 11:46 AM Status: COMPLETED Source: [facility] XR SPINE CERVICAL 3 VWS OR L ESS XR SPINE CERVICAL 3 VWS OR LESS Clinical history:Chronic neck pain Comparison: None. Findings: Multilevel degenerative disc disease with disco loss and endplate degenerative changes most pronounced at C4 C5, C5 C6 and C6 C7. No prevertebral soft tissue swelling. No vertebral body height loss. The dens is intact. Impression: Multilevel degenerative disc disease. No acute process. Finalized by Gilberto Flor MD on 05/15/2024 12:17 AM XR SPINE THORACIC 2 VWS Observed: 2023 11:46 AM Status: COMPLETED Source: [facility] XR SPINE THORACIC 2 VWS XR SPINE THORACIC 2 VWS Clinical history:Chronic back pain, unspecified back location, unspecified back pain laterality Comparison: None. Findings: Multilevel degenerative disc disease with disco loss and endplate degenerative changes. No acute process fracture dislocation. Impression: Multilevel degenerative disc disease. No evidence of acute osseous abnormality. Finalized by Gilberto Flor MD on 05/15/2024 12:17 AM XR SPINE LUMBAR 2 OR 3 VWS Observed: 05/12/2024 11:46 AM Status: COMPLETED Source: [facility] XR SPINE LUMBAR 2 OR 3 VWS XR SPINE LUMBAR 2 OR 3 VWS Clinical history:Chronic back pain, unspecified back location, unspecified back pain laterality Comparison: 06/12/2018 Findings: Transitional lumbosacral segment. There is multilevel degenerative disc disease with disc height loss and endplate degenerative changes most pronounced at L4-L5 and L5-S1. Impression: Lower lumbar degenerative disc disease without evidence of acute osseous abnormality. Finalized by Gilberto Flor MD on 05/15/2024 12:18 AM XR SHOULDER RT MIN 2 VWS Observed: 05/12 11:45 AM Status: COMPLETED Source: [facility] XR SHOULDER RT MIN 2 VWS CLINICAL INFORMATION: Chronic right shoulder pain TECHNIQUE: XR SHOULDER RT MIN 2 VWS 3 views the right shoulder were obtained. Mild AC joint degenerative changes noted. Is also mild glenohumeral degeneration. No acute fractures seen. No dislocation. IMPRESSION: Mild degenerative changes. Finalized by Nicolás Figueroa MD on 05/12/2024 3:49 PM XR RIBS BILAT W PA CHEST MIN 4 VW Observed: 05/12/2024 11:45 AM Status: COMPLETED Source: [facility] XR RIBS BILAT W PA CHEST MIN 4 VW XR RIBS BILAT W PA CHEST MIN 4 VW Clinical history:Rib pain chest pain Comparison: None. Findings: No focal opacity, effusion or pneumothorax. Cardiomediastinal silhouette is within normal limits. There is no evidence of contour deforming or displaced rib fracture identified. Evaluation is compromised by underpenetration related to body habitus. Impression: No definitive acute cardiopulmonary process or displaced rib fracture. Finalized by Gilberto Flor MD on 05/15/2024 12:16 AM MAMM SCREENING BILATERAL W CAD Observed: 03/09/2024 11:29 AM Status: COMPLETED Source: [facility] MAMM SCREENING BILATERAL W C AD EXAM: MAMM SCREENING BILATERAL W CAD, 03/09/2024 11:29 AM CLINICAL INDICATIONS: Screening, Encounter for screening mammogram for malignant neoplasm of breast COMPARISON: Baseline TECHNIQUE: Bilateral digital tomosynthesis MLO and CC views of the breasts were obtained, with creation of synthetic 2D views. Computer aided detection was utilized. FINDINGS: The breasts are almost entirely fatty. There are no suspicious masses, calcifications, or areas of architectural distortion. IMPRESSION: No mammographic evidence of malignancy. BI-RADS: BI-RADS 1 - Negative Recommendation: Routine screening mammogram in 1 year. Finalized by Van Sarmiento MD on 03/09/2024 12:22 PM 1 a MAMM 1 YR ALLERGIES DATE TYPE / CODE NAME / CODE REACTION SEVERITY SOURCE 06/16/2018 Drug Class/47990 1003(SNOMED CT) SULFA (SULFONAMIDE ANTIBIOTICS) Anaphylaxis High [facility] 06/16/2018 Drug Class~NON-C BORD/537576 003(SNOMED CT) SULFA (SULFONAMIDE ANTIBIOTICS) Anaphylaxis~Sob High [facility] 06/16/2018 Drug Class~NON-C BORD/694269 003(SNOMED CT) SULFA (SULFONAMIDE ANTIBIOTICS) [facility] 08/15/2013 DRUG INGREDI~NON -CBORD/4195 78425(SNOME D CT) NAPROXEN Rash Low [facility] 05/31/2013 DRUG INGREDI/419 874961(SNOM ED CT) METOCLOPRAMIDE HCL Anaphylaxis High [facility] 05/31/2013 DRUG INGREDI~NON -CBORD/4195 26273(SNOME D CT) METOCLOPRAMIDE HCL Anaphylaxis~Sob [facility] ENCOUNTERS ADMIT/DISCHARGE ACCOUNT NUMBER ADMITTING ENCOUNTER CLASS LOCATION SOURCE 01/15/2025/01/17/20 [id number] MORIS WOODALL Ambulatory Building:PF M_ACUTERoom : 216Bed: 01 [facility] 01/09/2025 [id number] Ambulatory Building:PF M_11HPCTREH B [facility] 12/26/2024/12/27/19 25 [id number] [facility] 12/26/2024/01/06/20 25 [id number] PATO VILLATORO Inpatient Encounter Building:PT H_G9ACUTERo om: O468Ymo: 01 [facility] 12/26/2024/12/27/19 25 [id number] Emergency Building:PF M_EDRoom: 10Bed: 10 [facility] 09/28/2024/09/28/19 25 [id number] Ambulatory Building:CW MFAMMED [facility] 09/05/2024/09/05/19 25 [id number] Ambulatory Building:NO MS BCP OB [facility] 08/28/2024/08/28/20 24 [id number] Ambulatory Building:[facility] 08/15/2024/08/15/20 24 [id number] Emergency Building: M_EDRoom: 8Bed: [address] [place] [address] 06/02/2024/06/02/20 24 [id number] Ambulatory Building:[facility] 05/12/2024/05/12/20 24 [id number] Ambulatory Building: M_XR [facility] 05/12/2024/05/12/20 24 [id number] Ambulatory Building: M_XR [facility] 05/12/2024/05/12/20 24 [id number] Ambulatory Building: M_XR [facility] 05/12/2024/05/12/20 24 [id number] Ambulatory Building: M_XR [facility] 05/12/2024/05/12/20 24 [id number] Ambulatory Building: M_XR [facility] 05/10/2024/05/10/20 24 [id number] Ambulatory Building:[facility] Medical [facility] 04/06/2024/04/06/20 24 [id number] Ambulatory Building:[facility] 03/14/2024/03/14/20 24 [id number] Inpatient Encounter Building: M_PERIOP [facility] 03/14/2024/03/14/20 24 [id number] Inpatient Encounter Building: M_PERIOP [facility] 03/13/2024/03/14/20 24 [id number] Inpatient Encounter Building: M_INTRAOP [facility] 03/13/2024/03/13/20 24 [id number] GILBERTO POEPLES Inpatient Encounter Building:PF M_PERIOPRoo m: POOLBed: [facility] 03/09/2024/03/09/20 24 [id number] Ambulatory Building: M_MAMM [facility] 03/07/2024/03/07/20 24 [id number] Ambulatory Building:PF M_PAT [facility] 02/16/2024/02/16/20 [id number] Ambulatory Buildin 080 [facility] 02/10/2024/02/10/20 [id number] Ambulatory Building:CW MFAMMED [facility] EPIC FUNCTIONAL STATUS No Functional Status Records Found EQUIPMENT No Equipment Records Found PAYERS ENCOUNTER GUARANTOR PAYER SUBSCRIBER SOURCE 01/15/2025 TEREZA BRUNO HALEYB: [facility] [place] [address]Pit: (HP) Primary Insurance:[facility] Number: [id number] Date:2023-12-29 TEREZA BRUNO HALEYB: [id number] [place] [address]Ttw: () [facility] 01/09/2025 TEREZA BRUNO HALEYB: [place] [address]Bqv: (HP) Primary Insurance:[facility] Number: [id number] Date:2023-12-29 TEREZA BRUNO ROGERDOB: [id number] [place] [address]Pej: () [facility] 12/26/2024 TEREZA ROGERDOB: [facility] [place] [address]Qkb: (HP) Primary Insurance:[place] MEDICAIDPolicy Number: [id number] Date:2023-12-29P.Karissa ABREU [id number] [place] [address]PG: TEREZA BAKERZUHAIRB: [id number] [facility] [address]Hja: (HP) [facility] 12/26/2024 TEREZA BAKERPARKERDOB: [facility] [place] [address]Nts: (HP) Primary Insurance:[facility] Number: [id number] Date:2023-12-29 TEREZA BRUNO ROGERDOB: [id number] [facility] [place] [address]Luk: (WP) [facility] 12/26/2024 TEREZA BRUNO ROGERDOB: [facility] [place] [address]Hcl: (HP) Primary Insurance:[facility] Number: [id number] Date:2023-12-29 TEREZA BRUNO ROGERDOB: [id number] [place] [address]Ajd: (WP) [facility] 09/28/2024 TEREZA ROGERDOB: [facility] [place] [address]Qht: (HP) Primary Insurance:[place] MEDICAIDPolicy Number: [id number] Date:2023-12-15 TEREZA ROGERDOB: [id number] [facility] [address] [facility] EPIC 09/05/2024 ISABELLAJASON OLIVIALEYDOB: [facility] [place], [place] [address]Juu: (HP) Primary Insurance:[place] MEDICAIDPolicy Number: [id number] Date:2023-12-15 TEREZA ROGERDOB: [id number] [facility] [place] [address] [facility] EPIC 08/28/2024 TEREZA DE LEONB: [facility] [place], [place] [address]Vuy: (HP) Primary Insurance:[place] MEDICAIDPolicy Number: [id number] Date:2023-12-15 TEREZA DURANDOB: [id number] [place] [address] [facility] 08/15/2024 TEREZA BRUNO LEMLEYDOB: [place] [address]Kor: (HP) Primary Insurance:[facility] Number: [id number] Date:2023-12-29 TEREZA DURANDOB: [id number] [place] [address]Rad: () [facility] 06/02/2024 TEREZA BAKERPARKERDOB: [place], [place] [address]Sqa: (HP) Primary Insurance:[place] MEDICAIDPolicy Number: [id number] Date:2023-12-15 TEREZA DURANDOB: [id number] [place] [address] [facility] 05/12/2024 TEREZA BAKERLEYDOB: [place] [address]Kqg: (HP) Primary Insurance:[facility] Number: [id number] Date:2023-12-29 TEREZA DURANDOB: [id number] [place], [place] [address]Djf: (HP) (WP) [facility] 05/12/2024 TEREZA DURANDOB: [place] [address]Hku: (HP) Primary Insurance:[facility] Number: [id number] Date:2023-12-29 TEREZA DURANDOB: [id number] [place] [address]Ypm: (HP) (WP) [facility] 05/12/2024 TEREZA DURANDOB: [place] [address]Xbv: (HP) Primary Insurance:[facility] Number: [id number] Date:2023-12-29 TEREZA DURANDOB: [id number] [place], [place] [address]Hnc: (HP) (WP) [facility] 05/12/2024 [facility] RUSK COUNTYAyesha DURANDOB: [place] [address]Mpi: (HP) Primary Insurance:[facility] Number: [id number] Date:2023-12-29 TEREZA DURANDOB: [id number] [place], [place] [address]Lto: (HP) (WP) [facility] 05/12/2024 TEREZA DURANDOB: [place] [address]Ttw: (HP) Primary Insurance:[facility] Number: [id number] Date:2023-12-29 TEREZA DURANDOB: [id number] [place] [address]Jze: (HP) (WP) [facility] 05/10/2024 TEREZA DURANDOB: [facility] [place] [address]Pfn: (HP) Primary Insurance:[place] MEDICAIDPolicy Number: [id number] Date:2023-12-15 TEREZA DURANDOB: [id number] [facility] [place] [address] [facility] 04/06/2024 TEREZA BAKERLEYDOB: [facility] [place] [address]Szm: (HP) Primary Insurance:[place] MEDICAIDPolicy Number: [id number] Date:2023-12-15 TEREZA DURANDOB: [id number] [facility] [place] [address] [facility] 03/14/2024 TEREZA BRUNO ROGERDOB: [facility] [place] [address]Xnm: (HP) Primary Insurance:[facility] Number: [id number] Date:2023-12-29 TEREZA DURANDOB: [id number] [facility] [place] [place] [address]Hwv: (HP) (WP) [facility] 03/14/2024 TEREZA BAKERPARKERDOB: [facility] [place] [address]Qwi: (HP) Primary Insurance:[facility] Number: [id number] Date:2023-12-29 TEREZA DURANDOB: [id number] [facility] [place] [address]Zov: (HP) (WP) [facility] 03/13/2024 TEREZA DURANDOB: [facility] [place] [address]Xhh: (HP) Primary Insurance:[facility] Number: [id number] Date:2023-12-29 TEREZA DURANDOB: [id number] [place] [address]Aph: (HP) (WP) [facility] 03/13/2024 TEREZA DURANDOB: [facility] [place] [address]Mkt: (HP) Primary Insurance:[facility] Number: [id number] Date:2023-12-29 TEREZA DURANDOB: [id number] [facility] [place] [place] [address]Ajq: (HP) (WP) [facility] 03/09/2024 TEREZA DURANDOB: [place] [address]Kmv: (HP) Primary Insurance:[facility] Number: [id number] Date:2023-12-29 TEREZA DURANDOB: [id number] [place] [address]Dwk: (HP) (WP) [facility] 03/07/2024 TEREZA DURANDOB: [place] [address]Cdy: (HP) Primary Insurance:[facility] Number: [id number] Date:2023-12-29 TEREZA DURANDOB: [id number] [place], [place] [address]Bjy: (HP) () [facility] 02/16/2024 TEREZA DURANDOB: [place] [address]Hbb: (HP) Primary Insurance:[place] MED[place] Number: [id number] Date:2023-12-29 TEREZA DURANDOB: [id number] [place], [place] [address]Ajf: (HP) () [facility] [facility] 02/10/2024 TEREZA DURANB: [place], [place] [address]Ibm: () Primary Insurance:[place] MEDICAIDPolic Number: [id number] Date:2023-12-15 TEREZA DURANDOB: [id number] [place] [address] [facility] EPIC SOCIAL HISTORY No Social History Records Found FAMILY HISTORY No Family History Records Found ADVANCE DIRECTIVES No Advanced Directives Records Found INFORMATION SOURCE DATE CREATED AUTHOR AUTHOR'S LASHON GIRARD 01/22/2025 [place]
[2025-01-22 01:19] VITALS: BP 135/98; PULSE 61; TEMP 36.3; O2SAT 100
--- OUTSIDE RECORDS SUMMARY | 2025-01-22 01:22 | XMS_ITS | Encounter Summary ---
Author Organization [facility] tem Address [id number] [address] [place] [address] Care Team Providers Care Pasting Inspector Name Role Phone Destin Simeon MD Primary Care Provider [phone] Reason for Visit * Reason Onset Date Comments Consult 12/30/2024 Encounter Details Date Type Department Care Team (Late st Contact Info) Description 12/30/2024 Telephone [facility] [address] [place] [phone] Gaviota Alejandre Consult Social History Tobacco Use Types Packs/Day Years Used Date Smoking Tobacco: Every Day Cigarettes 1 20 Smokeless Tobacco: Never Alcohol Use Standard Drinks/Week Comments Yes 0 (1 standard drink = 0.6 oz pur e alcohol) occasional C Utilities Answer Date Recorded In the past 12 months has [employer], gas, oil, or water [employer] threatened to shut off services in your home? No 12/27/2024 AUDIT-C Answer Date Recorded Q1: How often [...] medical appointments or from getting medications? No 11/30 In the past 12 months, has l ack of transportation kept you from meetings, work, or from getting things needed for daily living? No 12/27/2024 Housing Instability Answer Date Recorde d Are you worried or concerned that in the next two months you may not have stable housing that you own, rent or stay in as a part of a household? No 12/27/2024 Childcare Answer Date Recorded Childcare Unknown 02/08/2019 Employment Answer Date Recorded Employment Unknown 02/08/2019 Hunger Screening Answer Date Recorded Within the past 12 months we worried whether our food would run out before we got money to buy more. Never True 12/29/2024 Within the past 12 months th e food we bought just didn't last and we didn't have money to get more. Never True 12/29/2024 Purpose - Life Answer Date Recorded Purpose and direction in life Unknown Comments No Sex and Gender Information Value Date Recorded Sex Assigned at Not on file Legal Sex Female 11:27 AM EDT Gender Identity Not on file Sexual Orientation Not on file documented as of this encounter Miscellaneous Notes * Telephone Encounter - Gaviota Alejandre - 12/30/2024 12:04 PM EDT Contract: [facility] Rm [id number] Re IJ placement * Telephone Encounter - Gaviota Alejandre - 12/30/2024 12:04 PM EDT Contract: [facility] Called Dr Rivera and connected call documented in this encounter Plan of Treatment Upcoming Encounters Date Type Department Care Team (Late st Contact Info) Description 02/07/2025 1:30 PM EDT Office Visit [facility] Department of [facility] [address] [place] [phone] Romero Daly MD [address] [place] [phone] 02/12/2025 2:30 PM EDT Office Visit [facility] [place] [address] [place] [address] Marissa Daigle, DO [address] [facility] [address] [place] [address] documented as of this encounter Visit Diagnoses Not on filedocumented in this encounter Additional Health Concerns Assessment Noted Time PHQ-9 Depression Total Score: 0 12/28/19 10:46 AM EDT documented as of this encounter Care Teams Pasting Inspector Relationship Specialty Start Date End Date Destin Simeon MD [address] [place] [address] PCP - General Family Medicine 12/26/24 documented as of this encounter
--- OUTSIDE RECORDS SUMMARY | 2025-01-22 01:22 | XMS_ITS | Encounter Summary ---
Author Organization [facility] tem Address [id number] [address] [place] [address] Care Team Providers Care Wholesale Parts Salesperson Name Role Phone Destin Simeon MD Primary Care Provider [phone] Encounter Details Date Type Department Care Team (Late st Contact Info) Description 01/08/2025 Telephone [facility] [address] [place] [address] Ava Luo Social History Tobacco Use Types Packs/Day Years Used Date Smoking Tobacco: Every Day Cigarettes 1 20 Smokeless Tobacco: Never Alcohol Use Standard Drinks/Week Comments Yes 0 (1 standard drink = 0.6 oz pur e alcohol) occasional [facility] Utilities Answer Date Recorded In the past 12 months has [employer], gas, oil, or water [employer] threatened to shut off services in your [...] encounter Miscellaneous Notes * Telephone Encounter - Ava Luo - 01/08/2025 4:23 PM EDT Pt son calling in to schedule HDF/U with Dr. Garcia- I see an appt scheduled already with Dr. Daigle. I dont see in any notes any specific f/u so I am wondering if he needs to be scheduled with both [facility]. Please advise * Telephone Encounter - Ava Luo - 01/08/2025 4:23 PM EDT Called over to discharge nurse in [facility] spoke with Cameron about patients questions and he said Courtney will call back to advise if pt needs to be scheduled with both providers. Thank you. documented in this encounter Plan of Treatment Upcoming Encounters Date Type Department Care Team (Late st Contact Info) Description 02/07/2025 1:30 PM EDT Office Visit [facility] [place] [facility] [address] [place] [phone] Romero Daly MD [address], [address] [place] [phone] 02/12/2025 2:30 PM EDT Office Visit [facility] [place] [address] [place] [address] Marissa Daigle, DO [address] [facility] [address] [place] [phone] documented as of this encounter Visit Diagnoses Not on filedocumented in this encounter Additional Health Concerns Assessment Noted Time PHQ-9 Depression Total Score: 0 12/28/19 10:46 AM EDT documented as of this encounter Care Teams Wholesale Parts Salesperson Relationship Specialty Start Date End Date Destin Simeon MD [address] [place] [address] PCP - General Family Medicine 12/26/24 documented as of this encounter
--- OUTSIDE RECORDS SUMMARY | 2025-01-22 01:22 | XMS_ITS | Encounter Summary ---
Author Organization [facility] tem Address [id number] [address] [place] [address] Care Team Providers Care Hospital Food Service Worker Name Role Phone Destin Simeon MD Primary Care Provider [phone] Encounter Details Date Type Department Care Team (Latest Contact Info) Description 01/15/2025 Travel Social History Tobacco Use Types Packs/Day Years Used Date Smoking Tobacco: Every Day Cigarettes 1 20 Smokeless Tobacco: Never Alcohol Use Standard Drinks/Week Comments Yes 0 (1 standard drink = 0.6 oz pur e alcohol) occasional [facility] Utilities Answer Date Recorded In the past 12 months has e electric, gas, oil, or water company [...] on file documented as of this encounter Functional Status documented as of this encounter Plan of Treatment Upcoming Encounters Date Type Department Care Team (Late st Contact Info) Description 02/07/2025 1:30 PM EDT Office Visit [facility] Department of [facility] [address] [facility] [address] [place] [phone] Romero Daly MD [address] [facility] [address] [place] [phone] 02/12/2025 2:30 PM EDT Office Visit [facility] [place] [address] [place] [address] Marissa Daigle, DO [address] [facility] [address] [place] [address] documented as of this encounter Visit Diagnoses Not on filedocumented in this encounter Additional Health Concerns Assessment Noted Time PHQ-9 Depression Total Score: 0 12/28/19 25 10:46 AM EDT documented as of this encounter Care Teams Hospital Food Service Worker Relationship Specialty Start Date End Date Destin Simeon MD [address] [place] [address] PCP - General Family Medicine 12/26/24 documented as of this encounter
--- OUTSIDE RECORDS SUMMARY | 2025-01-22 01:23 | XMS_ITS | Clinical Summary ---
Author Organization [facility] Address [address] [place], [place] [id number] Care Team Providers Care Integrated Circuit Fabricator Name Role Phone Unavailable Primary Care Provider Unavailabl e Allergies Active Allergy Reactions Criticality Noted Date Comments Naproxen Other: See Comments 08/15/2013 TTP reaction Metoclopramide Hcl Shortness of Breath 08/15/20 13 Medications DIPHENHYDRAMINE HCL (BENADRYL ORAL)Indication s:With treatment 2-3 times a week. Take 100 mg by mouth. Indications: With treatment 2-3 times a week. Active LEVETIRACETAM (KEPPRA ORAL) Take 80 mg by mouth once daily. Active PREDNISONE ORAL Take 80 mg by mouth once daily. Active HYDROCODONE/CLOTILDE TAMINOPHEN (VICODIN ORAL) Take by mouth as needed. Active POTASSIUM/MAGNE SIUM (MAGNESIUM-POTA SSIUM ORAL)Indication s:With treatment. Take by mouth as needed. Indications: With treatment. Active Active Problems Problem Noted Date Diagnosed Date Thrombotic thrombocytopenic purpura (TTP) 2012 Resolved Problems Problem Noted Date Diagnosed Date Resolved Date History of TTP (thrombotic t hrombocytopenic purpura) 08/15/2013 08/15/2013 Social History Tobacco Use Types Packs/Day Years Used Date Smoking Tobacco: Every Day Smokeless Tobacco: Never Alcohol Use Standard Drinks/Week Comments Not Asked 0 (1 standard drink = 0.6 oz pur e alcohol) Comments No Sex and Gender Information Value Date Recorded Sex Assigned at Not on file Legal Sex Female 12:11 PM EST Gender Identity Not on file Sexual Orientation Not on file Last Filed Vital Signs Vital Sign Reading Time Taken Comments Blood Pressure 129/97 08/15/2013 9:23 AM EST Pulse 81 08/15/2013 9:23 AM EST Temperature 36.6 C (97.8 F) 08/15/2013 9:23 AM EST Respiratory Rate 20 08/15/2013 9:23 AM EST Oxygen Saturation - - Inhaled Oxygen Concentration - - Weight 104.2 kg (229 lb 11.5 oz) 08/15/2013 9:23 AM EST Height 157.4 cm (5' 1.97 ) 08/15/2013 9:23 AM ES T Body Mass Index 42.06 08/15/2013 9:23 AM EST Plan of Treatment Health Maintenance Due Date Last Done Comments Anxiety Screening 1995 Depression Screening 1995 HIV Screening 1995 Hepatitis C Screening 1995 DTaP,Tdap,Td Vaccine (1 - Tdap) 1996 Hepatitis B Vaccine (1 of 3 - 19+ 3-dose series) 09/18 Cervical Cancer Screening [address] Colonography 2022 Cologuard (FIT-DNA) 2022 Colonoscopy 2022 Colorectal Cancer Screening 2022 Diabetes Screening 2022 08/15/2013 Fecal Occult Blood 2022 Lipid Screening 2022 Sigmoidoscopy 2022 Covid-19 Vaccine ( - season) 2024 Influenza Vaccine (Season Ended) 2025 Procedures Procedure Name Priority Date/Time Associated Diagnosis Comments COMPREHENSIVE METABOLIC PANEL Routine 08/15/2013 12:09 PM EST Thrombotic thrombocytopenic purpura (TTP) from Last 3 Months or Most Recently Relevant to Health Maintenance Results * (ABNORMAL) COMP METABOLIC PANEL (08/15/2013 12:09 PM EST) Protein, Total 6.6 6.0 - 8.4 g/dL [facility] Albumin 4.1 3.5 - 5.0 g/dL [facility] Calcium 9.4 8.5 - 10.5 mg/dL [facility] Bilirubin, Total 0.3 0.0 - 1.5 mg/dL [facility] Alkaline Phosphatase 51 40 - 150 U/L [facility] AST 46(H) 7 - 40 U/L [facility] Glucose 102(H) 65 - 100 mg/dL [facility] BUN 13 8 - 25 mg/dL [facility] Creatinine 0.67(L) 0.70 - 1.40 mg/dL [facility] Sodium 134 132 - 148 mmol/L [facility] Potassium 4.7 3.5 - 5.0 mmol/L [facility] Comment: This specimen is hemolyzed. Hemolysis artifactually increases a potassium, magnesium, iron, folate, LD, and phosphorus result significantly above the true value. This result should NOT be used as a sole criterion for clinical decisions and potassium values above 6.0 will not be called as critical values. Chloride 103 98 - 110 mmol/L [facility] CO2 22(L) 23 - 32 mmol/L [facility] Anion Gap 9 0 - 15 mmol/L [facility] ALT 27 0 - 45 U/L [facility] eGFR- >60 [facility] eGFR-All Other Races >60 . [facility] Comment: eGFR (Estimated GFR) Units of measure: mL/min/1.73 meters squared eGFR is derived from the reexpressed MDRD Study equation using the following parameters: serum creatinine, age, gender and race. The creatinine assay has been calibrated to be traceable to IDMS. An eGFR <60 mL/min/1.73m2 for >3 months is consistent with chronic kidney disease. Refer to KDOQI guidelines for clinical interpretation. Blood specimen (specimen) BLOOD SPECIMEN / Unknown 08/15/2013 12:09 PM EST 08/15/2013 12:14 PM EST Sigifredo Ren MD LABORATORY Final Result [facility] [address] [place] [address] from Last 3 Months or Most Recently Relevant to Health Maintenance Insurance [employer]
--- OUTSIDE RECORDS SUMMARY | 2025-01-22 01:23 | XMS_ITS | Clinical Summary ---
Author Organization [facility] Address [address] [place] [address] Care Team Providers Care Supply Specialist Name Role Phone Destin Simeon MD Primary Care Provider [phone] Destin Simeon MD Unavailable Allergies Active Allergy Reactions Criticality Noted Date Comments Metoclopramide Anaphylaxis,Shortnes s of breath High 05/31/2013 Naproxen Other,Rash Low 08/15/2013 TTP reaction Sulfa Antibiotics Anaphylaxis High 06/16/2018 Medications cyclobenzaprine (Flexeril) 10 MG tabletIndications :Spasm of right trapezius muscle Take 1 tablet (10 mg) by mouth in the morning and 1 tablet (10 mg) in the evening and 1 tablet (10 mg) before bedtime. 60 tablet 2 024 Active celecoxib (CeleBREX) 200 MG capsuleIndication s:Degeneration of intervertebral disc of lumbar region with discogenic back pain and lower extremity pain Take 1 capsule (200 mg) by mouth 2 (two) times a day as needed for mild pain or moderate pain Take with food 60 capsule 2 024 Active Additional Information Patient not taking.Reported on 01/17/2025 metFORMIN XR (Glucophage-XR) 500 MG 24 hr tabletIndications :Insulin resistance Take 1 tablet (500 mg) by mouth in the evening. Take with meals Do not crush, chew, or split. 30 tablet 11 025 2025 Active Blood Glucose Monitoring Suppl (Blood Glucose Monitor System) w/Device kitIndications:Pr ediabetes 1 each Daily 1 kit 025 Active Glucose Blood (Blood Glucose Test Strips 333) stripIndications: Prediabetes 1 each by In Vitro route Daily 50 strip 11 025 Active phentermine (Adipex-P) 37.5 MG tabletIndications :Class 2 severe obesity due to excess calories with serious comorbidity and body mass index (BMI) of 39.0 to 39.9 in adult ([facility]) Take 1 tablet (37.5 mg) by mouth in the morning. Take before meals. 30 tablet 025 Active omeprazole (PriLOSEC) [address] capsuleIndication s:Gastroesophagea l reflux disease without esophagitis Take 1 capsule (40 mg) by mouth in the morning. Take before meals. Do not crush or chew.. 30 capsule 025 Active Lancets Micro Thin 33G miscIndications:P rediabetes 1 each Daily 50 each 11 025 Active nystatin (Mycostatin) 215688 UNIT/GM powderIndications :Dermatitis APPLY 1 APPLICATION TOPICALLY TWICE DAILY 60 g 025 Active buPROPion XL (Wellbutrin XL) 150 MG 24 hr tablet Take 150 mg by mouth in the morning. 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 Gastroesophageal reflux disease without esophagi tis 06/02/2024 Assessment & Plan (09/28/2024 3:30 PM EST): Symptoms controlled with omeprazole and continue. Assessment & Plan (08/28/2024 2:06 PM EST): Symptoms controlled with omeprazole and continue. Assessment & Plan (06/02/2024 11:46 AM EDT): Severe symptoms and start omeprazole. DDD (degenerative disc disease), lumbar 09/16/20 24 Assessment & Plan (09/28/2024 3:31 PM EST): Pain improved with celebrex and continue. Use tylenol #3 PRN. Assessment & Plan (08/28/2024 2:05 PM EST): Pain worse and start celebrex daily. Use tylenol #3 PRN. Assessment & Plan (06/02/2024 11:46 AM EDT): X-ray with OA and start mobic PRN. Use flexeril PRN. Increase activity. Use ultram for severe pain. If no improvement will need PT and possible referral for injections. DDD (degenerative disc disease), cervical 2023 Assessment & Plan (09/28/2024 3:31 PM EST): Pain improved with celebrex and continue. Use tylenol #3 PRN. Assessment & Plan (08/28/2024 2:05 PM EST): Pain worse and start celebrex daily. Use tylenol #3 PRN. Assessment & Plan (06/02/2024 11:46 AM EDT): X-ray with OA and start mobic PRN. Use flexeril PRN. Increase activity. Use ultram for severe pain. If no improvement will need PT and possible referral for injections. Assessment & Plan (05/10/2024 10:23 AM EDT): Pain unchanged and check x-ray. Use flexeril PRN. Menopausal syndrome (hot flashes) 04/06/2024 Assessment & Plan (04/06/2024 3:10 PM EDT): Frequent hot flashes and try effexor. Drug-induced constipation 04/06/2024 Assessment & Plan (04/06/2024 3:10 PM EDT): Developed constipation and add fiber supplement. Use miralax PRN. Primary osteoarthritis, right shoulder Assessment & Plan (05/10/2024 10:23 AM EDT): Pain unchanged and check x-ray. Use flexeril PRN. Assessment & Plan (04/06/2024 3:10 PM EDT): Decreased ROM and pain. Check x-ray. Start ROM exercises. Use flexeril PRN. Encounter for long-term current use of medicatio n 02/22/2024 Prediabetes 02/10/2024 Assessment & Plan (09/28/2024 3:30 PM EST): At times feels like low BS and monitor PRN. Continue metformin. Assessment & Plan (05/10/2024 10:24 AM EDT): Stressed need to eat regularly and not skip meals. Start ozempic. Assessment & Plan (02/10/2024 2:43 PM EDT): Reviewed labs and discussed prediabetes. Stick to ADA diet and limit carbs. LUIZ (obstructive sleep apnea) 02/10/2024 Assessment & Plan (02/10/2024 2:43 PM EDT): Needs new machine and last study around 2007. Refer for titration study. Class 2 severe obesity due t o excess calories with serious comorbidity and body mass index (BMI) of 37.0 to 37.9 in adult 02/10/2024 Assessment & Plan (09/28/2024 3:31 PM EST): Patient overweight and difficult time losing weight. Discussed proper diet and regular aerobic exercise. Recommend Weight Watchers and need to limit calories and smaller portions. Need to increase activity and regular aerobic exercise several days a week for 30 minutes at a time. Interested in adipex and warned of potential cardiac side effects. Resume adipex. OARRS reviewed. Continue medications as prescribed. Assessment & Plan (08/28/2024 2:05 PM EST): Patient overweight and difficult time losing weight. Discussed proper diet and regular aerobic exercise. Recommend Weight Watchers and need to limit calories and smaller portions. Need to increase activity and regular aerobic exercise several days a week for 30 minutes at a time. Interested in adipex and warned of potential cardiac side effects. Script written for first month and will need to recheck weight in 1 month. OARRS reviewed. Continue medications as prescribed. Assessment & Plan (04/06/2024 3:10 PM EDT): Patient doing well with adipex and lost 11 pounds in first month. Tolerating well with only mild dry mouth. Continue with dietary changes and less calories. Need to limit snacking and smaller portions. Continue healthier choices. Need regular aerobic exercise 30 minutes at a time 5-6 days a week. Refill for second month. OARRS reviewed. Continue meds as prescribed. If develop new or worsening symptoms contact office. Assessment & Plan (02/10/2024 2:42 PM EDT): Patient overweight and difficult time losing weight. Discussed proper diet and regular aerobic exercise. Recommend Weight Watchers and need to limit calories and smaller portions. Need to increase activity and regular aerobic exercise several days a week for 30 minutes at a time. Interested in adipex and warned of potential cardiac side effects. Script written for first month and will need to recheck weight in 1 month. OARRS reviewed. Continue medications as prescribed. Annual physical exam 01/20/2024 Resolved Problems Problem Noted Date Diagnosed Date Resolved Date Abscess of right axilla 05/10/2024 10/0 11/2023 Assessment & Plan (05/10/2024 10:23 AM EDT): Painful abscess and start doxy. Continue warm compresses to help open and drain. Tinea corporis 05/10/2024 06/02/2024 Assessment & Plan (05/10/2024 10:24 AM EDT): Rash not responding to OTC topical and treat with oral lamasil. Spasm of right trapezius muscle 02/10/2024 04/06/2024 Assessment & Plan (02/10/2024 2:43 PM EDT): Frequent spasms and use flexeril PRN. Use heat and massage PRN. Skin candidiasis 02/10/2024 04/06/2024 Assessment & Plan (02/10/2024 2:43 PM EDT): Continued rash and treat with oral diflucan. Encounters Date Type Department Care Team Description 01/18/2025 Clinisync Result Encounter [facility] External Department Unsolicited Provider, Generic External Data 01/17/2025 Patient Outreach [facility] [address] [place] [address] Unique Vogt, SENIOR IT BUSINESS ANALYST 01/16/2025 Telephone [facility] [address] [place] [phone] Destin Simeon MD 01/11/2025 Clinisync Result Encounter [facility] External Department Unsolicited Provider, Generic External Data 01/09/2025 Patient Outreach [facility] [address] [place] [address] Cecilia Schumacher, SENIOR IT BUSINESS ANALYST 12/24/2024 Refill [facility] [address] [place] [phone] Destin Simeon MD Dermatitis 12/03/2024 Refill [facility] [address] [place] [address] Destin Simeon MD Prediabetes 12/03/2024 Refill [facility] [address] [place] [address] Destin Simeon MD Gastroesophageal reflux disease without esophagitis 11/27/2024 Refill [facility] [address] [place] [address] Destin Simeon MD Dermatitis 11/17/2024 Refill [facility] [address] [place] [address] Destin Simeon MD Class 2 severe obesity due to excess calories with serious comorbidity and body mass index (BMI) of 39.0 to 39.9 in adult ([facility]) from Last 3 Months Social History Tobacco Use Types Packs/Day Years Used Date Smoking Tobacco: Every Day Cigarettes Smokeless Tobacco: Never Social Connection and Isolat ion Panel [NHANES] Answer Date Recorded In a typical week, how many times do you talk on the phone with family, friends, or neighbors? More than three times a week 02/04/2024 How often do you get togethe r with friends or relatives? Once a week 02/04/2024 How often do you attend chur ch or bahai services? More than 4 times per year 02/04/2024 Do you belong to any clubs o r organizations such as jehovah's witness groups, unions, fraternal or athletic groups, or school groups? No 02/04/2024 How often do you attend meet ings of the clubs or organizations you belong to? Never 02/04/2024 Are you , , di vorced, , never , or living with a partner? Never 02/04/2024 AUDIT-C Answer Date Recorded Q1: How often do you have a drink containing alc ohol? 2-4 times a month 02/04/2024 Q2: How many drinks containi ng alcohol do you have on a typical day when you are drinking? 1 or 2 02/04/2024 Q3: How often do you have si x or more drinks on one occasion? Never 02/04/2024 Overall Financial Resource Strain (CARDIA) Answe r Date Recorded How hard is it for you to pa y for the very basics like food, housing, medical care, and heating? Not very hard 02/04/2024 Exercise Vital Sign Answer Date Recorde d On average, how many days pe r week do you engage in moderate to strenuous exercise (like a brisk walk)? 3 days 02/04/2024 On average, how many minutes do you engage in exercise at this level? 40 min 02/04/2024 Hunger Vital Sign Answer Date Recorded Within the past 12 months, y ou worried that your food would run out before you got the money to buy more. Never true 02/04/20 24 Within the past 12 months, t he food you bought just didn't last and you didn't have money to get more. Never true 02/04/2024 PRAPARE - Transportation Answer Date Re corded In the past 12 months, has l ack of transportation kept you from medical appointments or from getting medications? No 02/2024 In the past 12 months, has l ack of transportation kept you from meetings, work, or from getting things needed for daily living? No 02/04/2024 Housing Stability Vital Sign Answer Liam e Recorded In the last 12 months, was t here a time when you were not able to pay the mortgage or rent on time? Yes 02/04/2024 Number of Times Moved in the Last Year Not on fi le 02/04/2024 Homeless in the Last Year Not on file 2023 Comments No Sex and Gender Information Value Date Recorded Sex Assigned at Female 01/18/2024 11:28 AM EDT Legal Sex Female 10:14 PM EDT Gender Identity Female 01/18/2024 11:28 AM EDT Sexual Orientation Straight 01/18/2024 11 :28 AM EDT Last Filed Vital Signs Vital Sign Reading Time Taken Comments Blood Pressure 110/60 09/28/2024 3:07 PM EST Pulse 72 09/28/2024 3:07 PM EST Temperature 36.2 C (97.1 F) 09/28/2024 3:07 PM EST Respiratory Rate 22 09/28/2024 3:07 PM EST Oxygen Saturation 99% 09/28/2024 3:07 PM EST Inhaled Oxygen Concentration - - Weight 93.9 kg (207 lb) 09/28/2024 3:07 PM EST Height 157.5 cm (5' 2 ) 09/28/2024 3:07 PM EST Body Mass Index 37.86 09/28/2024 3:07 PM EST Plan of Treatment Upcoming Encounters Date Type Department Care Team (Late st Contact Info) Description 02/02/2025 9:30 AM EDT Office Visit [facility] [address] [place] [address] Destin Simeon MD [address] [place] [address] 09/11/2025 3:00 PM EST Office Visit [facility] [address] [place] [phone] Blayne Rangel, DO [address] [place] [address] Health Maintenance Due Date Last Done Comments CT Colonography 1977 FIT-DNA 1977 FIT 1977 FOBT 1977 Sigmoidoscopy 1977 Mammogram 03/09/2025 03/09/2024, 02/27, 03/09/2024 Influenza Vaccine (Season Ended) 2025 Colonoscopy 03/13/2034 03/13/2024, 02/27, 03/13/2024 Colorectal Cancer Screening 03/13/2034 Cervical Cancer Screening Discontinued Pap Smear Discontinued 09/05/2024 HPV/Cotest Discontinued Procedures Procedure Name Priority Date/Time Associated Diagnosis Comments [facility] CMP (CMP) (FOR REMOTE [facility] USE) Routine 01/18/2025 8:07 AM EDT ALL CBC WITH AUTO DIFF Routine 8:07 AM EDT ALL MISCELLANEOUS TEST Routine 12:50 PM EDT VITAMIN B12 Routine 01/11/2025 12:50 PM EDT HMHP HAPTOGLOBIN Routine 01/11/2025 12:5 0 PM EDT [facility] FERRITIN Routine 01/11/2025 12:50 PM EDT METRO IRON AND TIBC Routine 01/11/2025 1 2:50 PM EDT MHPT DIFFERENTIAL Routine 01/11/2025 12: 50 PM EDT ALL C REACTIVE PROTEIN Routine 12:50 PM EDT ALL LDH Routine 01/11/2025 12:50 PM EDT METRO BILIRUBIN, DIRECT Routine 01/11/2025 12:50 PM EDT [facility] CMP (CMP) (FOR REMOTE [facility] USE) Routine 01/11/2025 12:50 PM EDT ALL SED RATE Routine 01/11/2025 12:50 PM EDT RETICULOCYTE PCT AUTO Routine 01/11/2025 12:50 PM EDT ALL CBC WITH AUTO DIFF Routine 12:50 PM EDT PAP SMEAR Routine 09/05/2024 12:00 AM EST BI MAMMOGRAM SCREENING TOMOSYNTHESIS BILATERAL 03/09/2024 12:23 PM EDT from Last 3 Months or Most Recently Relevant to Health Maintenance Results * (ABNORMAL) [facility] CMP (CMP) (FOR REMOTE [facility] USE) (01/18/2025 8:07 AM EDT) Only the most recent of2 resultswithin the time period is included. SODIUM 141 136 - 145 mmol/L TBH POTASSIUM 4.2 3.5 - 5.1 mmol/L TBH CHLORIDE 103 98 - 107 mmol/L TBH CARBON DIOXIDE 27.9 21.0 - 32.0 mmol/L TBH ANION GAP 14.3 TBH GLUCOSE 163(H) 74 - 106 mg/dL TBH BLOOD UREA NITROGEN 16.0 7.0 - 18.0 mg/dL TBH CREATININE 0.90 0.55 - 1.02 mg/dL TBH TBH EGFR-AF QATARI >60 >=60 mL/min/1. 73m 2 TBH TBH EGFR-NON AF QATARI >60 >=60 mL/min/1. 73m 2 TBH BUN CREATININE RATIO 17.8 TBH CALCIUM 9.0 8.5 - 10.1 mg/dL TBH BILIRUBIN TOTAL 0.4 0.2 - 1.0 mg/dL TBH ASPARTATE AMINO TRANSFERASE 12(L) 15 - 37 U/L TBH ALANINE AMINOTRANSFERASE 40 14 - 59 U/L TBH ALKALINE PHOSPHATASE 81 46 - 116 U/L TBH TOTAL PROTEIN 5.8(L) 6.4 - 8.2 g/dL TBH ALBUMIN LEVEL 3.0(L) 3.4 - 5.0 g/dL TBH GLOBULIN 2.8 g/dL TBH ALBUMIN GLOBULIN RATIO 1.1 TBH 01/18/2025 8:07 AM EDT 01/18/2025 8:10 AM EDT Narrative CLINISYNC - 01/18/2025 8:30 AM EDT us Generic External Data Provider CLINISYNC F inal Result [facility] * (ABNORMAL) ALL CBC WITH AUTO DIFF (01/18/2025 8:07 AM EDT) Only the most recent of2 resultswithin the time period is included. TBH WBC 12.5(H) 4.0 - 11.0 10 3/uL TBH TBH RBC 3.55(L) 4.20 - 5.40 10 6/uL TBH TBH HGB 10.7(L) 12.0 - 16.0 g/dL TBH TBH HCT 34.0(L) 36.0 - 48.0 % TBH TBH MCV 95.8 81.0 - 99.0 fL TBH TBH MCH 30.1 26.7 - 34.0 pg TBH TBH MCHC 31.5 29.9 - 35.2 g/dL TBH TBH RDW 18.6(H) 11.0 - 15.0 % TBH TBH PLT 159 150 - 450 10 3/uL TBH TBH MPV 9.2(L) 9.5 - 13.5 fL TBH NEUTROPHILS PERCENT AUTO 69.5 43.0 - 75.0 % TBH LYMPHOCYTES PERCENT AUTO 21.6 20.5 - 60.0 % TBH MONOCYTES PERCENT AUTO 4.9 1.7 - 12.0 % TBH TBH EO % 1.2 0.9 - 7.0 % TBH BASOPHILS PERCENT AUTO 0.2 0.2 - 2.0 % TBH IMMATURE GRANULOCYTES PCT AUTO 2.6(H) 0.0 - 0.5 % TBH NEUTROPHILS ABSOLUTE AUTO 8.7(H) 1.4 - 6.5 10 3/uL TBH LYMPHOCYTES ABSOLUTE AUTO 2.7 1.2 - 3.8 10 3/uL TBH MONOCYTES ABSOLUTE AUTO 0.6 0.3 - 0.8 10 3/uL TBH TBH EO # 0.2 0.0 - 0.7 10 3/uL TBH BASOPHILS ABSOLUTE AUTO 0.0 0.0 - 0.1 10 3/uL TBH IMMATURE GRANULOCYTES ABS AUTO 0.33(H) 0.00 - 0.03 10 3/uL TBH 01/18/2025 8:07 AM EDT 01/18/2025 8:10 AM EDT Narrative CLINISYNC - 01/18/2025 8:12 AM EDT Generic External Data Provider CLINISYNC F inal Result Performing Organization Address City/[facility]/ZIP Co de Phone Number [facility] * VITAMIN B12 (01/11/2025 12:50 PM EDT) VITAMIN B12 642 232 - 1245 pg/mL TBH Comment: Performed at: [facility] [address] [id number] Arts Manager: Nicolás Chan PhD, Phone: [phone] 01/11/2025 12:5 0 PM EDT 01/11/2025 12:59 PM EDT Narrative CLINISYNC - 01/12/2025 4:08 AM EDT Generic External Data Provider LAB BLOOD ORDERAB LES Final Result [facility] * (ABNORMAL) RETICULOCYTE PCT AUTO (01/11/2025 12:50 PM EDT) RETICULOCYTE PCT AUTO 5.46(H) 0.60 - 3.10 % TBH 01/11/2025 12:5 0 PM EDT 01/11/2025 12:59 PM EDT Narrative CLINISYNC - 01/11/2025 1:21 PM EDT Generic External Data Provider LAB BLOOD ORDERAB LES Final Result Performing Organization Address City/[facility]/ZIP Co de Phone Number [facility] * (ABNORMAL) MHPT DIFFERENTIAL (01/11/2025 12:50 PM EDT) SEGMENTED NEUTROPHILS % MANUAL 88.0(H) 43.0 - 75.0 TBH BAND NEUTROPHILS % 1.0 0 - 5 % TBH LYMPHOCYTES PERCENT MANUAL 8.0(L) 20.5 - 60.0 % TBH MONOCYTES PERCENT MANUAL 3.0 1.7 - 12.0 % TBH EOSINOPHILS PERCENT MANUAL 0.0(L) 0.9 - 7.0 % TBH BASOPHILS PERCENT MANUAL 0.0(L) 0.2 - 2.0 % TBH SEGMENTED NEUT ABSOLUTE MANUAL 13.55(H) 1.4 - 6.5 10 3/uL TBH BAND NEUTROPHILS ABSOLUTE 0.2 0.0 - 0.3 10 3/uL TBH LYMPHOCYTES ABSOLUTE MANUAL 1.23 1.20 - 3.80 10 3/uL TBH MONOCYTES ABSOLUTE MANUAL 0.46 0.30 - 0.80 10 3/uL TBH EOSINOPHILS ABSOLUTE MANUAL 0.00 0.00 - 0.70 10 3/uL TBH BASOPHILS ABS MANUAL 0.00 0.00 - 0.10 10 3/uL TBH POLYCHROMASIA 1+ TBH ANISOCYTOSIS 1+ TBH 01/11/2025 12:5 0 PM EDT 01/11/2025 12:59 PM EDT Narrative CLINISYNC - 01/11/2025 1:42 PM EDT Generic External Data Provider CLINISYNC F inal Result [facility] * METRO IRON AND TIBC (01/11/2025 12:50 PM EDT) TBH IRON 87.0 50.0 - 170.0 ug/dL TBH TBH TOTAL IRON BINDING CAPACITY 295.0 250.0 - 450.0 ug/dL TBH TBH PERCENT IRON SATURATION 29.5 % TBH 01/11/2025 12:5 0 PM EDT 01/11/2025 12:59 PM EDT Narrative CLINISYNC - 01/11/2025 2:19 PM EDT Generic External Data Provider CLINISYNC F inal Result Performing Organization Address City/[facility]/ZIP Co de Phone Number [facility] * METRO BILIRUBIN, DIRECT (01/11/2025 12:50 PM EDT) BILIRUBIN DIRECT 0.1 0.0 - 0.2 mg/dL TBH 01/11/2025 12:5 0 PM EDT 01/11/2025 12:59 PM EDT Narrative CLINISYNC - 01/11/2025 1:35 PM EDT Generic External Data Provider CLINISYNC F inal Result Performing Organization Address [facility] Co de Phone Number [facility] * HMHP HAPTOGLOBIN (01/11/2025 12:50 PM EDT) HAPTOGLOBIN 61 42 - 296 mg/dL TBH Comment: Performed at: - [address] [id number] Arts Manager: Nicolás Chan PhD, Phone: [phone] 01/11/2025 12:5 0 PM EDT 01/11/2025 12:59 PM EDT Narrative CLINISYNC - 01/12/2025 4:08 AM EDT Generic External Data Provider CLINISYPA F inal Result Performing Organization Address City/[facility]/ZIP Co de Phone Number [facility] * [facility] FERRITIN (01/11/2025 12:50 PM EDT) FERRITIN 186.0 8.0 - 252.0 ng/mL TBH 01/11/2025 12:5 0 PM EDT 01/11/2025 12:59 PM EDT Narrative CLINISYNC - 01/11/2025 2:29 PM EDT Generic External Data Provider CLINISYNC F inal Result Performing Organization Address City/[facility]/ZIP Co de Phone Number [facility] * ALL SED RATE (01/11/2025 12:50 PM EDT) [facility] SED RATE 11 <=20 mm/hr [facility] 01/11/2025 12:5 0 PM EDT 01/11/2025 12:59 PM EDT Narrative CLINISYNC - 01/11/2025 1:31 PM EDT Generic External Data Provider CLINISYNC F inal Result Performing Organization Address [facility] Co de Phone Number [facility] * ALL MISCELLANEOUS TEST (01/11/2025 12:50 PM EDT) [facility] MISCELLANEOUS TEST COMMENT . [facility] Comment: Test Ordered: [id number] Activity [id number] Activity 36.1 [L ] % Reference Range: >66.8 This test was developed and its performance characteristics determined by [employer]. It has not been cleared or approved by the Food and Drug Administration. Comment Comment Reference Range: . Severe deficiency of OEYRYU08 (less than 10% activity) is a relatively specific finding in patients with a clinical diagnosis of either hereditary or acquired thrombotic thrombocytopenic purpura (TTP). Normal to moderately reduced HDMEQW22 activity results do not exclude a diagnosis of TTP. Conditions that could have DCRVUN45 activity greater than 10% include hemolytic uremic syndrome (HUS), atypical hemolytic uremic syndrome (aHUS), and other thrombotic microangiopathies associated with hematopoietic stem cell and solid organ transplantation, liver disease, DIC, sepsis, , or effects of certain medications (eg, clopidogrel, cyclosporine, mitomycin C, quinine). Performed at: [address] [id number] Arts Manager: Xavier Read MD, Phone: [phone] Performed at: [address] [id number] Arts Manager: Nicolás Chan PhD, Phone: [phone] 01/11/2025 12:5 0 PM EDT 01/11/2025 12:59 PM EDT Narrative CLINISYNC - 01/14/2025 8:12 AM EDT [id number] Activity Generic External Data Provider CLINISYNC F inal Result Performing Organization Address [facility] Co de Phone Number [facility] * ALL LDH (01/11/2025 12:50 PM EDT) LACTATE DEHYDROGENASE 228 81 - 234 U/L TB 01/11/2025 12:5 0 PM EDT 01/11/2025 12:59 PM EDT Narrative CLINISYNC - 01/11/2025 1:35 PM EDT Generic External Data Provider CLINISYNC F inal Result Performing Organization Address [facility] de Phone Number [facility] * ALL C REACTIVE PROTEIN (01/11/2025 12:50 PM EDT) C REACTIVE PROTEIN <0.50 <=0.50 mg/dL TB 01/11/2025 12:5 0 PM EDT 01/11/2025 12:59 PM EDT Narrative CLINISYNC - 01/11/2025 1:35 PM EDT Generic External Data Provider CLINISYNC F inal Result Performing Organization Address [facility] Co de Phone Number [facility] * Pap Smear (09/05/2024 12:00 AM EST) Swab Cervical swab / Unknown [facility] Nurse LAB CYTOLOGY ORDERABLES Final Result Performing Organization Address [facility]/State/ZIP Co de Phone Number EXTERNAL LAB * Bilateral screening mammogram with tomosynthesis (03/09/2024 12:23 PM EDT) Anatomical Region Laterality Modality Breast Bilateral Mammography 03/09/2024 12:2 3 PM EDT Narrative 03/09/2024 12:22 PM EDT THIS EXAM WAS PERFORMED AT [facility] EXAM: MAMM SCREENING BILATERAL W CAD, 03/09/2024 [...] 12:22 PM 1 a MAMM 1 YR Procedure Note Radiology, Radiologist, MD - 03/09/2024 THIS EXAM WAS PERFORMED AT [facility] EXAM: MAMM SCREENING BILATERAL W CAD, 03/09/2024 11:29 AM CLINICAL INDICATIONS: Screening, Encounter for screening mammogram formalignant neoplasm of breast COMPARISON: Baseline TECHNIQUE: Bilateral digital tomosynthesis MLO and CC views of the breasts wereobtained, with creation of synthetic 2D views. Computer aided detectionwas utilized. FINDINGS: The breasts are almost entirely fatty. There are no suspicious masses, calcifications, or areas of architecturaldistortion. IMPRESSION: No mammographic evidence of malignancy. BI-RADS: BI-RADS 1 - Negative Recommendation: Routine screening mammogram in 1 year. Finalized by Van Sarmiento MD on 03/09/2024 12:22 PM 1 a MAMM 1 YR Destin Simeon MD IMG BI PROCEDURES Final Result from Last 3 Months or Most Recently Relevant to Health Maintenance Insurance [employer] Care Teams Supply Specialist Relationship Specialty Start Date End Date Destin Simeon MD [address] [place] [address] PCP - General Family Medicine 01/20/24 Destin Simeon MD [address] [place] [address] PCP - [facility] 08/30/24
--- OUTSIDE RECORDS SUMMARY | 2025-01-22 01:23 | XMS_ITS | Encounter Summary ---
Author Organization [facility] Address [address] [place] [address] Care Team Providers Care Collections Curator Name Role Phone Destin Simeon MD Primary Care Provider [phone] Destin Simeon MD Unavailable Encounter Details Date Type Department Care Team (Late st Contact Info) Description 05/15/2024 [facility] [address] [place] [phone] Destin Simeon MD [address] [place] [phone] Social History Tobacco Use Types Packs/Day Years [...] often do you attend chur ch or evangelical services? More than 4 times per year 02/04/2024 Do you belong to any clubs o r organizations such as druze groups, unions, fraternal or athletic groups, or [...] Last Year Not on file 2023 Comments Unknown Sex and Gender Information Value Date Recorded Sex Assigned at Female 01/18/2024 11:28 AM EDT Legal Sex Female 10:14 PM EDT Gender Identity Female 01/18/2024 11:28 AM EDT Sexual Orientation Straight 01/18/2024 11 :28 AM EDT documented as of this encounter Plan of Treatment Upcoming Encounters Date Type Department Care Team (Late st Contact Info) Description 02/02/2025 9:30 AM EDT Office Visit [facility] [address] [place] [address] Destin Simeon MD [address] [place] [phone] 09/11/2025 3:00 PM EST Office Visit [facility] [address] [place] [phone] Blayne Rangel, DO [address] [place] [address] documented as of this encounter Procedures Procedure Name Priority Date/Time Associated Diagnosis Comments XR THORACIC SPINE 2 VIEWS Routine 05/15/2024 2:00 PM EDT documented in this encounter Results * XR thoracic spine 2 views (05/15/2024 2:00 PM EDT) Anatomical Region Laterality Modality Spine, T-spine Radiographic Pily ging Destin Simeon MD IMG XR PROCEDURES Final Result documented in this encounter Visit Diagnoses Not on filedocumented in this encounter Care Teams Collections Curator Relationship Specialty Start Date End Date Destin Simeon MD [address] [place] [phone] PCP - General Family Medicine 01/20/24 Destin Simeon MD [address] [place] [phone] PCP - [facility] 08/30/24 documented as of this encounter
--- OUTSIDE RECORDS SUMMARY | 2025-01-22 01:23 | XMS_ITS | Encounter Summary ---
Author Organization [facility] Address [address] [place] [address] Care Team Providers Care Digital Account Coordinator Name Role Phone Destin Simeon MD Primary Care Provider [phone] Destin Simeon MD Unavailable Encounter Details Date Type Department Care Team (Late st Contact Info) Description 2024 Orders Only [facility] [address] [place] [address] Yvrose Gutierrez LPN [address] [place] [address] Social History Tobacco Use Types Packs/Day Years [...] often do you attend chur ch or spiritism services? More than 4 times per year 02/04/2024 Do you belong to any clubs o r organizations such as baptism groups, unions, fraternal or athletic groups, or [...] [facility] [address] [place] [address] Destin Simeon MD [address] [place] [phone] 09/11/2025 3:00 PM EST Office Visit [facility] [address] [place] [phone] Blayne Rangel DO [address] [place], [place] [id number] documented as of this encounter Procedures Procedure Name Priority Date/Time Associated Diagnosis Comments PAP SMEAR Routine 09/05/2024 12:00 AM EST documented in this encounter Results * Pap Smear (09/05/2024 12:00 AM EST) Swab Cervical swab / Unknown us [facility] Nurse LAB CYTOLOGY ORDERABLES Final Result EXTERNAL LAB documented in this encounter Visit Diagnoses Not on filedocumented in this encounter Care Teams Digital Account Coordinator Relationship Specialty Start Date End Date Destin Simeon MD [address] [place] [phone] PCP - General Family Medicine 01/20/24 Destin Simeon MD [address] [place] [phone] PCP - [facility] 08/30/24 documented as of this encounter
--- OUTSIDE RECORDS SUMMARY | 2025-01-22 01:23 | XMS_ITS | Clinical Summary ---
Author Organization [employer] Address [id number] [address] [place] [address] Care Team Providers Care Softball Coach Name Role Phone Destin Simeon MD Primary Care Provider Allergies Active Allergy Reactions Criticality Noted Date Comments Metoclopramide Hcl Anaphylaxis,Shortnes s Of Breath High 05/31/2013 Naproxen Rash Low 08/15/2013 TTP reaction Sulfa (Sulfonamide Antibiotics) Anaphylaxis,Shortness Of Breath High 06/16/2018 Medications omeprazole (PriLOSEC) 40 mg capsule Take 1 capsule (40 mg total) by mouth in the morning. Active nystatin (MYCOSTATIN) powder Apply 1 Application topically in the morning and 1 Application before bedtime. 12/26/19 25 Active apixaban (ELIQUIS) 5 mg tablet Take 1 tablet (5 mg total) by mouth in the morning and 1 tablet (5 mg total) before bedtime. 60 tablet 01/02/20 25 Active apixaban (ELIQUIS) 5 mg tablet Take 1 tablet (5 mg total) by mouth in the morning and 1 tablet (5 mg total) before bedtime. 60 tablet 2 01/05/20 25 Active aspirin 81 mg Take 1 tablet (81 mg total) by mouth in the morning. 90 tablet 6 01/06/20 25 Active predniSONE (DELTASONE) 20 mg tabletIndicat ions:Thromboc ytopenia Take 4 tablets (80 mg total) by mouth daily with breakfast. Continue taking prednisolone until you follow up with Hematology. Please follow up with them MARTINEZ to determine how long you should be prednisolone. This medication is not lifelong and should be tapered off. 30 tablet 2 01/06/20 25 Active atorvastatin (LIPITOR) 40 mg tablet Take 1 tablet (40 mg total) by mouth nightly. 90 tablet 3 01/06/20 25 Active cyanocobalami n (vitamin B-12) 1000 MCG tablet Take 1 tablet (1,000 mcg total) by mouth in the morning. Active pantoprazole (PROTONIX) 20 mg EC tablet Take 2 tablets (40 mg total) by mouth in the morning. Active LORazepam (ATIVAN) 0.5 mg tablet Take 1 tablet (0.5 mg total) by mouth in the morning and 1 tablet (0.5 mg total) before bedtime. Active senna (SENOKOT) 8.6 mg tablet Take 1 tablet (8.6 mg total) by mouth in the morning. Active buPROPion XL (WELLBUTRIN XL) 150 mg 24 hr tablet Take 1 tablet (150 mg total) by mouth every morning. 30 tablet 01/17/20 25 Active loratadine (CLARITIN) 10 mg tablet Take 1 tablet (10 mg total) by mouth in the morning. 30 tablet 12/09/19 24 025 Discontinued cyclobenzapri ne (FLEXERIL) 10 mg tablet Take 1 tablet (10 mg total) by mouth 2 (two) times a day as needed. 02/10/20 24 025 Discontinued clotrimazole (LOTRIMIN) 1 % cream Apply 1 Application topically in the morning and 1 Application before bedtime. 01/19/20 24 025 Discontinued fluticasone propionate (FLONASE) 50 mcg/actuation nasal spray Administer 2 sprays into each nostril as needed. 01/19/20 24 025 Discontinued meloxicam (MOBIC) 7.5 mg tablet Take 1 tablet (7.5 mg total) by mouth in the morning. 025 Discontinued metFORMIN (FORTAMET) 500 MG (OSM) 24 hr tablet Take 1 tablet (500 mg total) by mouth daily with breakfast. 025 Discontinued metFORMIN XR (GLUCOPHAGE XR) 500 mg 24 hr tablet Take 1 tablet (500 mg total) by mouth daily with dinner. 025 Discontinued(T herapy completed) phentermine (ADIPEX-P) 37.5 mg tablet Take 1 tablet (37.5 mg total) by mouth every morning before breakfast. 025 Discontinued(T herapy completed) Active Problems Problem Noted Date Diagnosed Date History of thrombectomy 01/16/2025 Overview (01/16/2025): 12/26/2024 History of stroke 01/16/2025 Overview (01/16/2025): History of recent stroke on December 26 for aphasia and right-sided weakness patient was given TNK at [facility] and was transferred to [place] for mechanical thrombectomy Leukocytosis 01/16/2025 Hypomagnesemia 01/16/2025 Acute deep vein thrombosis ( DVT) of femoral vein of right lower extremity 01/16/2025 Overview (01/16/2025): Dx 01/01/25 Stroke-like symptoms 01/16/2025 Weakness 01/15/2025 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) 12/27/2024 Encounters Date Type Department Care Team Description 01/15/2025 3:03 PM EDT - 01/16/2025 3:45 PM EDT Hospital Encounter [facility] - Acute Care [address] [place] [phone] Severiano Shah MD Asif, Muhamid M, MD 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 (Primary Dx); Weakness; History of stroke; Migraine without aura and without status migrainosus, not intractable Discharge Disposition: Home 01/15/2025 Travel 01/09/2025 Travel 01/08/2025 Telephone [facility] [address] [place] [address] Ava Luo 12/30/2024 Telephone [facility] [address] [place] [address] Gaviota Alejandre Consult 12/30/2024 Telephone [facility] [address] [place] [address] Cally Brock L orders 12/30/2024 Telephone [facility] [address] [place] [address] Cally Brock L orders 12/30/2024 Telephone [facility] [address] [place] [phone] Gaviota Alejandre Consult 12/26/2024 5:35 PM EDT - 12/26/2024 6:35 PM EDT Surgery [facility] - Cardiac Cath [address] [place] [phone] Romero Daly MD Neuro Invasive 12/26/2024 4:25 PM EDT Anesthesia Event [facility] - Cardiac Cath [address] [place] [address] Spencer Hennessy MD Gardiner, Jodi-Ann A, RAILWAY SIGNAL ELECTRICIAN-COMMUNICATIONS DEPARTMENT CHAIR 12/26/2024 3:37 PM EDT - 01/05/2025 5:40 PM EDT Hospital Encounter [facility] - GEN [address] [place] [address] Naresh Pérez MD TTP (thrombotic thrombocytopenic purpura) ([facility]) (Primary Dx); Thrombocytopenia; Gait difficulty; Cerebrovascular accident (CVA) due to thrombosis of left middle cerebral artery ([facility]) Discharge Disposition: Home 12/26/2024 2:09 PM EDT - 12/26/2024 3:15 PM EDT Emergency [facility] - Emergency [address] [place] [address] Glenys Jackson MD Cerebrovascular accident (CVA), unspecified mechanism ([facility]) (Primary Dx) Discharge Disposition: [facility] 12/26/2024 Telephone [facility] [address] [place] [phone] Babs Dietrich TTP LOW PLATELET COUNT 12/26/2024 Travel from Last 3 Months Immunizations Immunization Administration Dates Next Due COVID-19, mRNA, LNP-S, PF, 100mcg/0.5mL Dose ,12/18/2020 Family History Medical History Relation Name Comments No Known Problems Father Migraines Mother Breast cancer Neg Hx Relation Name Status Comments Father Mother Social History Tobacco Use Types Packs/Day Years Used Date Smoking Tobacco: Every Day Cigarettes 1 20 Smokeless Tobacco: Never Tobacco Cessation:Ready to Q uit: Not Asked; Counseling Given: Not Answered Alcohol Use Standard Drinks/Week Comments Yes 0 [...] Mass Index 43.33 01/15/2025 6:22 PM EDT Plan of Treatment Upcoming Encounters Date Type Department Care Team (Late st Contact Info) Description 02/07/2025 1:30 PM EDT Office Visit [facility], A Department of [facility] [address] [place] [phone] Romero Daly MD [address] [facility] [address] [place] [address] 02/12/2025 2:30 PM EDT Office Visit [facility] [place] [address] Marissa Daigle, DO [address] [place] [address] Health Maintenance Due Date Last Done Comments Tobacco Counseling 1977 Adult BMI Follow Up Plan 1995 DTaP,Tdap and Td Vaccines (1 - Tdap) 1996 COVID-19 Vaccine (3 - Modern a risk series) 02/13/2021 01/16/2021, 12/18/2020 Influenza Vaccine 04/30/2025 Depression Screening 12/27/2025 12/27/2024 Adult BMI Screening 01/15/2026 01/15/2025 Tobacco Screening 01/15/2026 01/15/2025 Pap Smear Discontinued 09/05/2024 Goals Goal Patient Goal Type Associated Problems Recent Progress Patient-Stated? Author Home and resume OP therapy or Home Health Care verses SNF pendign PT/OT evaluation. General Yes Lauren Wilson, RN Note: Evaluation of progress towards goal: Patient states she prefers to return home. Tele Neuro cleared patient today and stated the patient is cleared for discharge. Medical Devices Not on file Procedures Procedure Name Priority Date/Time Associated Diagnosis Comments BEDSIDE GLUCOSE Routine 01/16/2025 12:19 PM EDT , URINE Routine 01/16/2025 11:3 5 AM EDT URINALYSIS Routine 01/16/2025 11:35 AM EDT MR BRAIN WO CONT Routine 01/16/2025 9:38 AM EDT EXTRA TUBES BLUE TOP Routine 01/16/2025 4:28 AM EDT FERRITIN Routine 01/16/2025 4:28 AM EDT IRON AND TIBC Routine 01/16/2025 4:28 AM EDT PROCALCITONIN Routine 01/16/2025 4:28 AM EDT EXTRA TUBES Routine 01/16/2025 4:28 AM EDT HEMOGLOBIN A1C Routine 01/16/2025 4:28 AM EDT LIPID PROFILE Routine 01/16/2025 4:28 AM EDT CBC WITH AUTO DIFFERENTIAL Routine 01/16/2025 4:28 AM EDT MAGNESIUM Routine 01/16/2025 4:28 AM EDT COMPREHENSIVE METABOLIC PANEL Routine 01/16/2025 4:28 AM EDT BEDSIDE GLUCOSE Routine 01/15/2025 9:[address] CTA CAROTID STAT 01/15/2025 3:[address] CTA HEAD STAT 01/15/2025 3:35 PM EDT ECG 12-LEAD STAT 01/15/2025 3:[address] BRAIN WO CONT STROKE ALERT STAT 01/15/2025 3:21 PM EDT PHOSPHORUS Routine 01/15/2025 3:20 PM EDT THYROID PROFILE INCLUDES TSH FT4 Routine 01/15/2025 3:20 PM EDT TROPONIN I, HIGH SENSITIVITY 0 HOUR STAT 01/15/2025 3:20 PM EDT CBC WITH AUTO DIFFERENTIAL STAT 01/15/2025 3:20 PM EDT APTT STAT 01/15/2025 3:20 PM EDT PROTIME & INR STAT 01/15/2025 3:20 PM EDT BASIC METABOLIC PANEL STAT 01/15/2025 3:20 PM EDT TROPONIN I, HIGH SENSITIVITY 0 HOUR STAT 01/15/2025 3:20 PM EDT BEDSIDE GLUCOSE Routine 01/15/2025 3:06 PM EDT ED PHYSICIAN NIHSS AND THROMBOLYTIC DECISION Routine 01/15/2025 3:05 PM EDT FRESH FROZEN PLASMA SETUP Routine 01/06/2025 7:12 AM EDT FRESH FROZEN PLASMA SETUP Routine 01/05/2025 3:00 PM EDT CBC WITH AUTO DIFFERENTIAL Routine 01/05/2025 4:33 AM EDT IONIZED CALCIUM Routine 01/05/2025 4:33 AM EDT FIBRINOGEN Routine 01/05/2025 4:33 AM EDT COMPREHENSIVE METABOLIC PANEL Routine 01/05/2025 4:33 AM EDT FRESH FROZEN PLASMA SETUP Routine 01/04/2025 3:00 PM EDT FRESH FROZEN PLASMA SETUP Routine 01/04/2025 3:00 PM EDT VASC VENOUS DUPLEX LOWER RIGHT Routine 01/04/2025 2:13 PM EDT LDH Routine 01/04/2025 5:22 AM EDT CBC WITH AUTO DIFFERENTIAL Routine 01/04/2025 5:22 AM EDT IONIZED CALCIUM Routine 01/04/2025 5:22 AM EDT FIBRINOGEN Routine 01/04/2025 5:22 AM EDT COMPREHENSIVE METABOLIC PANEL Routine 01/04/2025 5:22 AM EDT FRESH FROZEN PLASMA SETUP Routine 01/03/2025 9:00 PM EDT HEPARIN ANTI XA, UNFRACTIONATED STAT 01/03/2025 7:51 AM EDT HEPARIN ANTI XA, UNFRACTIONATED Routine 01/03/2025 6:27 AM EDT LDH Routine 01/03/2025 6:27 AM EDT CBC WITH AUTO DIFFERENTIAL Routine 01/03/2025 6:27 AM EDT IONIZED CALCIUM Routine 01/03/2025 6:27 AM EDT FIBRINOGEN Routine 01/03/2025 6:27 AM EDT COMPREHENSIVE METABOLIC PANEL Routine 01/03/2025 6:27 AM EDT HEPARIN ANTI XA, UNFRACTIONATED Routine 01/03/2025 12:19 AM EDT FRESH FROZEN PLASMA SETUP Routine 01/02/2025 9:01 PM EDT FRESH FROZEN PLASMA SETUP Routine 01/02/2025 9:01 PM EDT FRESH FROZEN PLASMA SETUP Routine 01/02/2025 9:01 PM EDT HEPARIN ANTI XA, UNFRACTIONATED Routine 01/02/2025 8:44 PM EDT HEPARIN ANTI XA, UNFRACTIONATED Routine 01/02/2025 6:00 PM EDT HEPARIN ANTI XA, UNFRACTIONATED Routine 01/02/2025 11:11 AM EDT LDH Routine 01/02/2025 2:47 AM EDT CBC WITH AUTO DIFFERENTIAL Routine 01/02/2025 2:47 AM EDT IONIZED CALCIUM Routine 01/02/2025 2:47 AM EDT FIBRINOGEN Routine 01/02/2025 2:47 AM EDT COMPREHENSIVE METABOLIC PANEL Routine 01/02/2025 2:47 AM EDT HEPARIN ANTI XA, UNFRACTIONATED Routine 01/02/2025 2:47 AM EDT FRESH FROZEN PLASMA SETUP Routine 01/01/2025 9:00 PM EDT FRESH FROZEN PLASMA SETUP Routine 01/01/2025 9:00 PM EDT FRESH FROZEN PLASMA SETUP Routine 01/01/2025 9:00 PM EDT FRESH FROZEN PLASMA SETUP Routine 01/01/2025 9:00 PM EDT HEPARIN ANTI XA, UNFRACTIONATED Routine 01/01/2025 8:42 PM EDT HEPARIN ANTI XA, UNFRACTIONATED Routine 01/01/2025 1:04 PM EDT PROTIME & INR Routine 01/01/2025 1:04 PM EDT APTT Routine 01/01/2025 1:04 PM EDT CBC WITH AUTO DIFFERENTIAL Routine 01/01/2025 1:04 PM EDT HEPATITIS B SURFACE ANTIGEN Add-On 01/01/2025 6:11 AM EDT HEPATITIS B SURFACE ANTIBODY QUANTITATION Add-On 01/01/2025 6:11 AM EDT HEPATITIS B CORE ANTIBODY, TOTAL Add-On 01/01/2025 6:11 AM EDT LDH Add-On 01/01/2025 6:11 AM EDT IONIZED CALCIUM Routine 01/01/2025 6:11 AM EDT FIBRINOGEN Routine 01/01/2025 6:11 AM EDT COMPREHENSIVE METABOLIC PANEL Routine 01/01/2025 6:11 AM EDT CBC WITH AUTO DIFFERENTIAL Routine 01/01/2025 6:11 AM EDT FRESH FROZEN PLASMA SETUP Routine 12/31/2024 9:00 PM EDT FRESH FROZEN PLASMA SETUP Routine 12/31/2024 9:00 PM EDT IONIZED CALCIUM Routine 12/31/2024 6:30 AM EDT FIBRINOGEN Routine 12/31/2024 6:30 AM EDT COMPREHENSIVE METABOLIC PANEL Routine 12/31/2024 6:30 AM EDT CBC WITH AUTO DIFFERENTIAL Routine 12/31/2024 6:30 AM EDT CBC WITH AUTO DIFFERENTIAL Routine 12/31/2024 12:48 AM EDT TRANSFUSION REACTION Routine 12/31/2024 12:44 AM EDT CBC WITH AUTO DIFFERENTIAL Routine 12/30/2024 7:07 PM EDT IR CICV NON-TUNLD > 5YRS Routine 12/30/2024 2:29 PM EDT TYPE AND SCREEN Routine 12/30/2024 12:03 PM EDT IONIZED CALCIUM Routine 12/30/2024 12:03 PM EDT FIBRINOGEN Routine 12/30/2024 12:03 PM EDT VASC VENOUS DUPLEX LOWER BILATERAL Routine 12/30/2024 10:18 AM EDT RETICULOCYTES Add-On 12/30/2024 6:42 AM EDT LDH Routine 12/30/2024 6:42 AM EDT COMPREHENSIVE METABOLIC PANEL Routine 12/30/2024 6:42 AM EDT CBC WITH AUTO DIFFERENTIAL Routine 12/30/2024 6:42 AM EDT CLINICAL PATHOLOGY REVIEW Routine 12/30/2024 12:00 AM EDT FUNGAL CULTURE, SKIN Routine 12/29/2024 3:00 PM EDT CBC WITH AUTO DIFFERENTIAL Routine 12/29/2024 10:11 AM EDT HAPTOGLOBIN Routine 12/29/2024 10:10 AM EDT LDH Routine 12/29/2024 10:10 AM EDT COMPREHENSIVE METABOLIC PANEL Routine 12/29/2024 10:10 AM EDT RETICULOCYTES Add-On 12/28/2024 11:43 PM EDT LDH STAT Add-on 12/28/2024 11:43 PM EDT COMPREHENSIVE METABOLIC PANEL STAT Add-on 12/28/2024 11:43 PM EDT CBC WITH AUTO DIFFERENTIAL Routine 12/28/2024 11:43 PM EDT CBC WITH AUTO DIFFERENTIAL Routine 12/28/2024 3:59 PM EDT ECHO COMPLETE WO CONTRAST Routine 12/28/2024 1:06 PM EDT CBC WITH AUTO DIFFERENTIAL Routine 12/28/2024 9:21 AM EDT FIBRINOGEN Routine 12/28/2024 9:21 AM EDT US ABDOMEN LMTD Routine 12/28/2024 7:18 AM EDT LUDIN SCREEN W/ REFLEX Add-On 12/28/2024 3:39 AM EDT HIV 1&2 AB/AG SCREEN (P24 AG) Add-On 12/28/2024 3:39 AM EDT HEPATITIS PANEL, ACUTE Add-On 3:39 AM EDT CBC WITH AUTO DIFFERENTIAL Routine 12/28/2024 3:39 AM EDT COMPREHENSIVE METABOLIC PANEL Routine 12/28/2024 3:39 AM EDT CBC WITH AUTO DIFFERENTIAL Routine 12/28/2024 12:10 AM EDT MR BRAIN WO CONT Routine 12/27/2024 11:2 5 PM EDT CBC WITH AUTO DIFFERENTIAL STAT 12/27/2024 3:46 PM EDT HEMOSIDERIN, RANDOM, URINE Routine 12/27/2024 3:19 PM EDT DIRECT UDAY Routine 12/27/2024 9:53 AM EDT [id number] INHIBITOR SCREEN Routine 12/27/2024 9:53 AM EDT [id number] INHIBITOR BETHESDA TITER Routine 12/27/2024 9:53 AM EDT LDH Add-On 12/27/2024 9:53 AM EDT FOLATE Add-On 12/27/2024 9:53 AM EDT VITAMIN B12 Add-On 12/27/2024 9:53 AM EDT ARUP GENERIC ORDER #1 Routine 12/27/2024 9:53 AM EDT [id number] ACTIVITY AND INHIBITOR PROFILE Routine 12/27/2024 9:53 AM EDT POTASSIUM Routine 12/27/2024 9:53 AM EDT PLATELETS SETUP Routine 12/27/2024 9:[address] BRAIN WO CONT STAT 12/27/2024 7:21 AM EDT CBC WITH AUTO DIFFERENTIAL STAT Add-on 12/27/2024 6:03 AM EDT PLATELET COUNT Routine 12/27/2024 6:03 AM EDT LDH Add-On 12/27/2024 3:35 AM EDT COMPREHENSIVE METABOLIC PANEL Routine 12/27/2024 3:35 AM EDT LIPID PROFILE Routine 12/27/2024 3:35 AM EDT TRANSFUSE PLATELETS Routine 12/27/2024 1 2:22 AM EDT TYPE AND SCREEN Routine 12/26/2024 9:08 PM EDT PLATELET COUNT Add-On 12/26/2024 9:08 PM EDT CBC WITH AUTO DIFFERENTIAL Add-On 12/26/2024 9:08 PM EDT CLINICAL PATHOLOGY BLOOD SMEAR REVIEW Routine 12/26/2024 9:08 PM EDT RETICULOCYTES Routine 12/26/2024 9:08 PM EDT HAPTOGLOBIN Routine 12/26/2024 9:08 PM EDT HEMOGLOBIN A1C Routine 12/26/2024 9:08 PM EDT BEDSIDE GLUCOSE Routine 12/26/2024 5:52 PM EDT NEURO INVASIVE Routine 12/26/2024 5:24 PM EDT NEURO INVASIVE Routine 12/26/2024 5:[address] CEREBRAL PERF ANALYSIS STAT 12/26/2024 4:[address] BRAIN WO CONT STAT 12/26/2024 4:08 PM EDT COMPREHENSIVE METABOLIC PANEL Add-On 12/26/2024 3:32 PM EDT TROPONIN I, HIGH SENSITIVITY 0 HOUR STAT 12/26/2024 3:32 PM EDT CBC WITH AUTO DIFFERENTIAL STAT 12/26/2024 3:32 PM EDT APTT STAT 12/26/2024 3:32 PM EDT PROTIME & INR STAT 12/26/2024 3:32 PM EDT BASIC METABOLIC PANEL STAT 12/26/2024 3:32 PM EDT TROPONIN I, HIGH SENSITIVITY 0 HOUR STAT 12/26/2024 3:32 PM EDT XR CHEST 1 VIEW STROKE STAT 2:40 PM EDT ECG 12-LEAD STAT 12/26/2024 2:[address] CTA CAROTID STAT 12/26/2024 2:[address] CTA HEAD STAT 12/26/2024 2:[address] BRAIN WO CONT STROKE ALERT STAT 12/26/2024 2:11 PM EDT from Last 3 Months Results * (ABNORMAL) Bedside Glucose *Place/Obtain serum glucose if >500 per glucometer. (01/16/2025 12:19PM EDT) Only the most recent of4 resultswithin the time period is included. Bedside Glucose (POC) 155(H) 65 - 99 mg/dL 01/16/2025 12:22 PM EDT [facility] arterial/capilla ry 01/16/2025 12:19 PM EDT 01/16/2025 12:22 PM EDT us Nikhil Rice MD POINT OF CARE TEST ORDERABLES Final Result Performing Organization Address City/[facility]/ZIP Co de Phone Number [address] [place] [address], [place] * , urine (01/16/2025 11:35 AM EDT) URINE Negative Negative 01/16/2025 12:30 PM EDT [facility] Urine 01/16/2025 11:3 5 AM EDT 01/16/2025 12:13 PM EDT us Deanne Valencia RAILWAY SIGNAL ELECTRICIAN-DIRECTOR MEDICAL AFFAIRS URINE ORDERABLES Final Res ult Performing Organization Address [facility] Co de Phone Number [address] [place] [address], [place] * Urinalysis (01/16/2025 11:35 AM EDT) COLOR Yellow Yellow, Colorless 01/16/2025 12:25 PM EDT [facility] TURBIDITY Clear Clear 01/16/2025 12:25 PM EDT [facility] SPECIFIC GRAVITY 1.020 1.003 - 1.035 01/16 12:25 PM EDT [facility] NITRITE Negative Negative 01/16/2025 12:25 PM EDT [facility] PH,URINE 6.5 5.0 - 8.5 01/16/2025 12:25 PM EDT [facility] LEUKOCYTE ESTERASE Negative Negative 01/16/2025 12:25 PM EDT [facility] PROTEIN Negative Negative 01/16/2025 12:25 PM EDT [facility] KETONES (URINE) Negative Negative 12:25 PM EDT [facility] UROBILINOGEN 0.2 eu/dL 0.2 eu/dL, 1.0 eu/dL 01/16/2025 12:25 PM EDT [facility] BILIRUBIN (URINE) Negative Negative 01/16/2025 12:25 PM EDT [facility] BLOOD/HGB Negative Negative 01/16/2025 12:25 PM EDT [facility] GLUCOSE (URINE) Negative Negative, 250 mg/dL, >1000 mg/dL 01/16/2025 12:25 PM EDT [facility] Urine 01/16/2025 11:3 5 AM EDT 01/16/2025 12:13 PM EDT Narrative [facility] - 01/16/2025 12:25 PM EDT Urine received without preservative. Delays in transport may affect results. Interpret with caution. A clinical correlation is recommended. us Deanne Valencia RAILWAY SIGNAL ELECTRICIAN-DIRECTOR MEDICAL AFFAIRS URINE ORDERABLES Final Res ult Performing Organization Address City/State/[facility] Co de Phone Number [facility] [address] [place] [address], [place] * MR brain without contrast (01/16/2025 9:38 AM EDT) Only the most recent of2 resultswithin the time period is included. Anatomical Region Laterality Modality Neuro, Head, Head [...] was performed without contrast. Please note, sagittal [id number] sequence was not obtained as the patient [...] Quinn MD on 01/16/2025 10:39 AM Nikhil Rice MD IMG MRI ORDERABLES Final Resul t * Light Blue Top (01/16/2025 4:28 AM EDT) Extra Tube Auto Resulted 01/16/2025 6:03 AM EDT [facility] Blood Venous blood / Unknown 01/16/2025 4:28 AM EDT 01/16/2025 5:05 AM EDT Nikhil Rice MD LAB BLOOD ORDERABLES Final Res ult Performing Organization Address City/[facility] Co de Phone Number [facility] [address] [place] [address], [place] * (ABNORMAL) Procalcitonin (01/16/2025 4:28 AM EDT) PROCALCITONIN 0.06(H) <0.05 ng/mL 01/16/2025 9:42 AM EDT [facility] Blood 01/16/2025 4:28 AM EDT 01/16/2025 5:01 AM EDT Narrative [facility] - 01/16/2025 9:42 AM EDT <0.50 ng/mL - Low risk of severe sepsis and/or septic shock. <2.00 ng/mL - Recommend retesting within 6-24 hours. >2.00 ng/mL - High risk of sepsis and/or septic shock. Deanne Valencia APRN-DIRECTOR MEDICAL AFFAIRS LAB BLOOD ORDERABLES Final Result [facility] [address] [place] [address], [place] * (ABNORMAL) CBC auto differential (01/16/2025 4:28 AM EDT) Only the most recent of22 resultswithin the time period is included. WBC 14.0(H) 4 - 11 x10E9/L 01/16/2025 7:25 AM EDT [facility] RBC Count 3.30(L) 3.8 - 5.2 X10E12/L 01/16/2025 7:25 AM EDT [facility] Hemoglobin 10.1(L) 11.7 - 15.5 g/dL 01/16/2025 7:25 AM EDT [facility] Hematocrit 30.8(L) 35 - 47 % 01/16/2025 7:25 AM EDT [facility] MCV 93 80 - 100 fL 01/16/2025 7:25 AM EDT [facility] MCH 30.5 27 - 34 pg 01/16/2025 7:25 AM EDT [facility] MCHC 32.7 32 - 36 g/dL 01/16/2025 7:25 AM EDT [facility] RDW 20.2(H) 11.5 - 15 % 01/16/2025 7:25 AM EDT [facility] Platelet Count 204 150 - 450 X10E9/L 01/16/2025 7:25 AM EDT [facility] MPV 7.9 7 - 12 fL 01/16/2025 7:25 AM EDT [facility] Myelocyte 1 % 01/16/2025 7:25 AM EDT [facility] Comment:This is an appended report. These results have been appended to a previously preliminary verified report. % Bands Neutrophils 1 % 01/16/2025 7:25 AM EDT [facility] Comment:This is an appended report. These results have been appended to a previously preliminary verified report. Neutrophils Relatives 70 % 01/16/2025 7:25 AM EDT [facility] Comment:This is an appended report. These results have been appended to a previously preliminary verified report. Lymphocytes Relative 23 % 01/16/2025 7:25 AM EDT [facility] Comment:This is an appended report. These results have been appended to a previously preliminary verified report. Monocytes Relative 5 % 01/16/2025 7:25 AM EDT [facility] Comment:This is an appended report. These results have been appended to a previously preliminary verified report. nRBC 1 01/16/2025 7:25 AM EDT [facility] Comment:This is an appended report. These results have been appended to a previously preliminary verified report. Neutrophils Absolute (M) 10.0(H) 1.5 - 6.6 10*3/uL 01/16/2025 7:25 AM EDT [facility] Comment:This is an appended report. These results have been appended to a previously preliminary verified report. Lymphocytes Absolute 3.2 1.0 - 3.5 10*3/uL 01/16/2025 7:25 AM EDT [facility] Comment:This is an appended report. These results have been appended to a previously preliminary verified report. Monocytes Absolute 0.7 0.0 - 0.9 10*3/uL 01/16/2025 7:25 AM EDT [facility] [facility] Comment:This is an appended report. These results have been appended to a previously preliminary verified report. RBC Morphology Reviewed 01/16/2025 7:25 AM EDT [facility] Comment:This is an appended report. These results have been appended to a previously preliminary verified report. Differential Type MANUAL DIFFERENTIAL 01/16/2025 7:[address] [facility] Comment:This is an appended report. These results have been appended to a previously preliminary verified report. Blood 01/16/2025 4:28 AM EDT 01/16/2025 5:01 AM EDT us Nikhil Rice MD LAB BLOOD ORDERABLES Final Res ult [address] [place] [address], [place] * Iron and TIBC (01/16/2025 4:28 AM EDT) IRON 84 50 - 170 ug/dL 01/16/2025 2:07 PM EDT [facility] TRANSFERRIN 216 168 - 336 mg/dL 01/16/2025 2:07 PM EDT [facility] IRON BINDING 302 250 - 425 ug/dL 01/16/2025 2:07 PM EDT [facility] IRON SATURATION 28 15 - 50 % SATURATION 01/16/2025 2:07 PM EDT [facility] Blood 01/16/2025 4:28 AM EDT 01/16/2025 5:01 AM EDT us Deanne BONE LAB BLOOD ORDERABLES Final Result Performing Organization Address City/[facility]/ZIP Co de Phone Number [facility] [address] [place] [address], [place] [phone] * (ABNORMAL) Magnesium (01/16/2025 4:28 AM EDT) MAGNESIUM 1.7(L) 1.8 - 2.6 mg/dL 01/16/2025 5:25 AM EDT [facility] Blood 01/16/2025 4:28 AM EDT 01/16/2025 5:01 AM EDT us Nikhil Rice MD LAB BLOOD ORDERABLES Final Res ult [facility] [address] [place] [address] [place] [address], [place] * Hemoglobin A1c (01/16/2025 4:28 AM EDT) Only the most recent of2 resultswithin the time period is included. HEMOGLOBIN A1C 5.6 4.4 - 5.6 % 01/16/2025 11:25 AM EDT [facility] Comment: ADA Guidelines Result HgbA1c Normal : less than 5.7 % Prediabetes : 5.7 % to 6.4 % Diabetes : > 6.4 % Use with caution in patients with abnormal hemoglobin variants as the half-life of red blood cells and in vivo glycation rates are affected. EST. AVERAGE GLUCOSE 114 mg/dL 01/16/2025 11:25 AM EDT [facility] Blood Venous blood / Unknown 01/16/2025 4:28 AM EDT 01/16/2025 5:01 AM EDT Nikhil Rice MD LAB BLOOD ORDERABLES Final Res ult [facility] [address] [place] [address], * Ferritin (01/16/2025 4:28 AM EDT) [facility] FERRITIN 90 11 - 307 ng/mL 01/16/2025 2:19 PM EDT [facility] Blood 01/16/2025 4:28 AM EDT 01/16/2025 5:01 AM EDT Deanne BONE LAB BLOOD ORDERABLES Final Result [facility] [address] [place] [address], * Lipid profile (01/16/2025 4:28 AM EDT) Only the most recent of2 resultswithin the time period is included. Pathologist [facility] CHOLESTEROL 170 150 - 200 mg/dL 01/16/2025 10:47 AM EDT [facility] TRIGLYCERIDE 97 27 - 150 mg/dL 01/16/2025 10:47 AM EDT [facility] HDL CHOLESTEROL 71 >39 mg/dL 10:47 AM EDT [facility] Comment: HDL <40 mg/dL - High Risk HDL > or = 40mg/dL- Desirable HDL >60 mg/dL - Negative Risk LDL (CALC) 80 <130 mg/dL 01/16/2025 10:47 AM EDT [facility] Comment: LDL <100 mg/dL - Desirable LDL >160 mg/dL - High Risk CHOLESTEROL:HDL 2.4 1.0 - 5.0 10:47 AM EDT [facility] VERY LOW LIPOPROTEIN 19 0 - 30 mg/dL 01/16/2025 10:47 AM EDT [facility] Blood Venous blood / Unknown 01/16/2025 4:28 AM EDT 01/16/2025 5:01 AM EDT us Nikhil Rice MD LAB BLOOD ORDERABLES Final Res ult [facility] [address] [place] [address], [place] [phone] * (ABNORMAL) Comprehensive metabolic panel (01/16/2025 4:28 AM EDT) Only the most recent of13 resultswithin the time period is included. SODIUM 137 134 - 146 mmol/L 01/16/2025 5:25 AM EDT [facility] POTASSIUM 3.5 3.5 - 5.0 mmol/L 01/16/2025 5:25 AM EDT [facility] CHLORIDE 102 98 - 109 mmol/L 01/16/2025 5:25 AM EDT [facility] CARBON DIOXIDE 23 22 - 32 mmol/L 01/16/2025 5:25 AM EDT [facility] ANION GAP 12 5 - 15 mmol/L 01/16/2025 5:25 AM EDT [facility] BLOOD UREA NITROGEN 18 5 - 23 mg/dL 01/16/2025 5:25 AM EDT [facility] CREATININE 0.93 0.40 - 1.00 mg/dL 01/16/2025 5:25 AM EDT [facility] Comment:METHOD TRACEABLE TO IDOH STANDARD GLUCOSE 140(H) 65 - 99 mg/dL 01/16/2025 5:25 AM EDT [facility] CALCIUM 9.0 8.5 - 10.5 mg/dL 01/16/2025 5:25 AM EDT [facility] TOTAL PROTEIN 5.7(L) 6.0 - 8.0 g/dL 01/16/2025 5:25 AM EDT [facility] ALBUMIN 3.2 3.2 - 5.3 g/dL 01/16/2025 5:25 AM EDT [facility] ALKALINE PHOSPHATASE 65 39 - 130 U/L 01/16/2025 5:25 AM EDT [facility] AST 17 <=41 U/L 01/16/2025 5:25 AM EDT [facility] ALT 39(H) <=31 U/L 01/16/2025 5:25 AM EDT [facility] BILIRUBIN,TOTAL 0.6 0.3 - 1.2 mg/dL 01/16/2025 5:25 AM EDT [facility] EGFR Non-Race Dependent 76 >=60 ml/min/1.7 3sq.m 01/16/2025 5:25 AM EDT [facility] Comment: eGFR not reported due to non-numeric value for Creatinine. Reported eGFR is based on the CKD-EPI 2020 equation that does not use a race coefficient. Blood 01/16/2025 4:28 AM EDT 01/16/2025 5:01 AM EDT us Nikhil Rice MD LAB BLOOD ORDERABLES Final Res ult [facility] [address] [place] [address], [place] * CT angiogram carotid (01/15/2025 3:35 PM EDT) Only the most recent of2 resultswithin the time period is included. Anatomical Region Laterality Modality Neuro, Neck, Vascular, [...] supervision. Automated exposure control utilized. The [place] Symptomatic Carotid Endarterectomy Trial (NASCET) method for [...] physician supervision. Automated exposure control utilized. The[place] Symptomatic Carotid Endarterectomy Trial (NASCET) method forcalculating [...] CT angiogram head (01/15/2025 3:35 PM EDT) Only the most recent of2 resultswithin the time period is included. Anatomical Region Laterality Modality Head, Neuro, Vascular, Head and Neck, Neuro [place] ra N/A Computed Tomography 01/15/2025 4:12 PM [...] ACAs: Normal bilaterally. AComm: Normal P-Comms and typewriter operator automatic: typewriter operator automatic are patent bilaterally. Posterior communicating arteries are [...] ACAs: Normal bilaterally. AComm: Normal P-Comms and typewriter operator automatic: typewriter operator automatic are patent bilaterally. Posterior communicatingarteries are not well visualized. Vertebral arteries: Normal to the confluence with the basilar artery. Basilar artery: Normal. IMPRESSION: No large vessel occlusion, critical stenosis, or sizable aneurysm. Finalized by Rad Morales on 01/15/2025 4:21 PM us Severiano Shah MD IMG CT ORDERABLES Final Result * EKG 12 lead (01/15/2025 3:31 PM EDT) Only the most recent of2 resultswithin the time period is included. 01/15/2025 3:31 PM EDT us Severiano Shah MD ECG ORDERABLES Final Result TRACEMASTERVUE * CT brain without contrast stroke alert (01/15/2025 3:21 PM EDT) Only the most recent of2 resultswithin the time period is included. Anatomical Region Laterality Modality Neuro, Head, Head [...] by Dillon Escobar on 01/15/2025 3:31 PM us Severiano Shah MD IMG CT ORDERABLES Final Result * Troponin I, High Sensitivity 0 Hour (01/15/2025 3:20 PM EDT) Only the most recent of2 resultswithin the time period is included. TROPONIN I, HIGH SENSITIVITY 9 <16 ng/L 01/15/2025 3:57 PM EDT [facility] Blood Venous blood / Unknown Venipuncture / Unknown 01/15/2025 3:20 PM EDT 01/15/2025 3:23 PM EDT us Severiano Shah MD LAB BLOOD ORDERABLES Final Res ult Performing Organization Address City/[facility]/ZIP Co de Phone Number [address] [place] [address], [place] * (ABNORMAL) Thyroid profile includes TSH FT4 (01/15/2025 3:20 PM EDT) FREE T4 0.89 0.61 - 1.60 ng/dL 01/15/2025 7:18 PM EDT [facility] TSH 0.46(L) 0.49 - 4.67 uIU/mL 01/15/2025 7:18 PM EDT [facility] Blood Venous blood / Unknown Venipuncture / Unknown 01/15/2025 3:20 PM EDT 01/15/2025 3:23 PM EDT us Nikhil Rice MD LAB BLOOD ORDERABLES Final Res ult Performing Organization Address City/[facility]/ZIP Co de Phone Number [address] [place] [address], [place] * (ABNORMAL) APTT (01/15/2025 3:20 PM EDT) Only the most recent of3 resultswithin the time period is included. APTT 25(L) 26 - 37 sec 01/15/2025 3:35 PM EDT [facility] Blood Venous blood / Unknown Venipuncture / Unknown 01/15/2025 3:20 PM EDT 01/15/2025 3:23 PM EDT us Severiano Shah MD LAB BLOOD ORDERABLES Final Res ult Performing Organization Address City/[facility] Co de Phone Number [address] [place] [address], [place] * Protime & INR (01/15/2025 3:20 PM EDT) Only the most recent of3 resultswithin the time period is included. PROTIME 12.2 9.8 - 13.2 sec 01/15/2025 3:35 PM EDT [facility] INR 1.1 0.9 - 1.2 01/15/2025 3:35 PM EDT [facility] Blood Venous blood / Unknown Venipuncture / Unknown 01/15/2025 3:20 PM EDT 01/15/2025 3:23 PM EDT us Severiano Shah MD LAB BLOOD ORDERABLES Final Res ult Performing Organization Address City/[facility]/ZIP Co de Phone Number [address] [place] [address], [place] * Phosphorus (01/15/2025 3:20 PM EDT) PHOSPHORUS 2.9 2.4 - 4.9 mg/dL 01/15/2025 7:00 PM EDT [facility] Blood Venous blood / Unknown Venipuncture / Unknown 01/15/2025 3:20 PM EDT 01/15/2025 3:23 PM EDT us Nikhil Rice MD LAB BLOOD ORDERABLES Final Res ult [facility] [address] [place] [address], * (ABNORMAL) Basic Metabolic Panel (01/15/2025 3:20 PM EDT) Only the most recent of2 resultswithin the time period is included. SODIUM 135 134 - 146 mmol/L 01/15/2025 3:45 PM EDT [facility] POTASSIUM 4.3 3.5 - 5.0 mmol/L 01/15/2025 3:45 PM EDT [facility] CHLORIDE 101 98 - 109 mmol/L 01/15/2025 3:45 PM EDT [facility] CARBON DIOXIDE 25 22 - 32 mmol/L 01/15/2025 3:45 PM EDT [facility] ANION GAP 9 5 - 15 mmol/L 01/15/2025 3:45 PM EDT [facility] BLOOD UREA NITROGEN 19 5 - 23 mg/dL 01/15/2025 3:45 PM EDT [facility] CREATININE 0.85 0.40 - 1.00 mg/dL 01/15/2025 3:45 PM EDT [facility] Comment:METHOD TRACEABLE TO IDMS STANDARD GLUCOSE 190(H) 65 - 99 mg/dL 01/15/2025 3:45 PM EDT [facility] CALCIUM 8.3(L) 8.5 - 10.5 mg/dL 01/15/2025 3:45 PM EDT [facility] EGFR Non-Race Dependent 85 >=60 ml/min/1.7 3sq.m 01/15/2025 3:45 PM EDT [facility] Comment: eGFR not reported due to non-numeric value for Creatinine. Reported eGFR is based on the CKD-EPI 2020 equation that does not use a race coefficient. Blood Venous blood / Unknown Venipuncture / Unknown 01/15/2025 3:20 PM EDT 01/15/2025 3:23 PM EDT us Severiano Shah MD LAB BLOOD ORDERABLES Final Res ult [facility] [address] [place] [address], * ED NIHSS And Thrombolytic Screening (01/15/2025 3:05 PM EDT) Narrative Severiano Shah MD - 01/15/2025 3:05 PM EDT Severiano Shah MD 01/16/2025 12:26 PM ED NIHSS And Thrombolytic Screening Performed by: Severiano Shah MD Authorized [...] the history and assessment of the patient. us Severiano Shha MD PROCEDURE/MINOR SURGICAL ORDER ROJELIO Final Result * FFP setup: (01/06/2025 7:12 AM EDT) Only the most recent of14 resultswithin the time period is included. Pathologist [facility] Blood component type [id number] BLOOD BANK - [place] Unit number [id number] BL OOD BANK - [place] Unit ABO O BLOOD BANK - [place] Unit RH POS BLOOD BANK - [place] Status of unit TRANSFUSED BLOO D BANK - [place] Expiration Date [id number] BLOOD BANK - [place] BB Type Barcode 5100 BLOOD BANK - [place] Blood component type [id number] BLOOD BANK - [place] Unit number [id number] BL OOD BANK - [place] Unit ABO O BLOOD BANK - [place] Unit RH POS BLOOD BANK - [place] Status of unit TRANSFUSED BLOO D BANK - [place] Expiration Date [id number] BLOOD BANK - [place] BB Type Barcode 5100 BLOOD BANK - [place] Blood component type [id number] BLOOD BANK - [place] Unit number [id number] BL OOD BANK - [place] Unit ABO O BLOOD BANK - [place] Unit RH POS BLOOD BANK - [place] Status of unit /RELEASED BLOOD BANK - [place] Expiration Date [id number] BLOOD BANK - [place] BB Type Barcode 5100 BLOOD BANK - [place] Blood component type [id number] BLOOD BANK - [place] Unit number [id number] BL OOD BANK - [place] Unit ABO O BLOOD BANK - [place] Unit RH POS BLOOD BANK - [place] Status of unit TRANSFUSED BLOO D BANK - [place] Expiration Date [id number] BLOOD BANK - [place] BB Type Barcode 5100 BLOOD BANK - [place] Blood component type [id number] BLOOD BANK - [place] Unit number [id number] BL OOD BANK - [place] Unit ABO O BLOOD BANK - [place] Unit RH POS BLOOD BANK - [place] Status of unit TRANSFUSED BLOO D BANK - [place] Expiration Date [id number] BLOOD BANK - [place] BB Type Barcode 5100 BLOOD BANK - [place] Blood component type [id number] BLOOD BANK - [place] Unit number [id number] BL OOD BANK - [place] Unit ABO O BLOOD BANK - [place] Unit RH POS BLOOD BANK - [place] Status of unit TRANSFUSED BLOO D BANK - [place] Expiration Date [id number] BLOOD BANK - [place] BB Type Barcode 5100 BLOOD BANK - [place] Blood component type [id number] BLOOD BANK - [place] Unit number [id number] BL OOD BANK - [place] Unit ABO O BLOOD BANK - [place] Unit RH NEG BLOOD BANK - [place] Status of unit TRANSFUSED BLOO D BANK - [place] Expiration Date [id number] BLOOD BANK - [place] BB Type Barcode 9500 BLOOD BANK - [place] Blood component type [id number] BLOOD BANK - [place] Unit number [id number] BL OOD BANK - [place] Unit ABO A BLOOD BANK - [place] Unit RH POS BLOOD BANK - [place] Status of unit TRANSFUSED BLOO D BANK - [place] Expiration Date BLOOD BANK - [place] BB Type Barcode 6200 BLOOD BANK - [place] Blood component type [id number] BLOOD BANK - [place] Unit number [id number] BL OOD BANK - [place] Unit ABO A BLOOD BANK - [place] Unit RH POS BLOOD BANK - [place] Status of unit TRANSFUSED BLOO D BANK - [place] Expiration Date [id number] BLOOD BANK - [place] BB Type Barcode 6200 BLOOD BANK - [place] 01/06/2025 7:12 AM EDT Tatum Manzo MD BLOOD BANK PRODUCT ORDERABLES E dited Result - Final BLOOD BANK - [place] * Fibrinogen (01/05/2025 4:33 AM EDT) Only the most recent of8 resultswithin the time period is included. FIBRINOGEN 194 190 - 480 mg/dL 01/05/2025 5:09 AM EDT [facility] Blood Venous blood / Unknown 01/05/2025 4:33 AM EDT 01/05/2025 4:55 AM EDT Randy Johns MD LAB BLOOD ORDERABLES Final R esult [facility] [address] [place] [address], [place] [phone] * Ionized calcium (01/05/2025 4:33 AM EDT) Only the most recent of7 resultswithin the time period is included. IONIZED CALCIUM - ICAN 5.0 4.5 - 5.3 mg/dL 01/05/2025 5:10 AM EDT [facility] Blood Venous blood / Unknown 01/05/2025 4:33 AM EDT 01/05/2025 4:56 AM EDT us Randy Johns MD LAB BLOOD ORDERABLES Final R esult [facility] [address] [place] [address], [place] [phone] * Vas venous duplex lwr single right (01/04/2025 2:13 PM EDT) Anatomical Region Laterality Modality Vascular Right Ultrasound 01/04/2025 2:14 PM EDT Narrative 01/04/2025 5:57 PM EDT Previous: Previous lower extremity venous duplex exam [...] lower extremity.LEFT:NO EVIDENCE of deep vein thrombosis (DVT) of the common femoral vein. Comparison is made [...] at the phone number beside their name. Procedure Note Bj Patrick MD - 01/04/2025 Previous: Previous lower extremity venous duplex exam performed 12/29/2024:RIGHT: ACUTE femoral deep vein thrombosis (DVT). Right: Partially compressible common femoral with Isoechoic intraluminalcontent and spontaneous, phasic spectral Doppler signals. Remainingvisualized deep venous segments are compressible with spontaneous phasicspectral Doppler waveforms. Superficial veins are compressible. Left: Common femoral vein is compressible with spontaneous phasic /spectral Doppler waveforms. Conclusions: RIGHT:Common femoral deep vein thrombosis (DVT), UNDETERMINEDAGE.NO EVIDENCE of superficial vein thrombosis of the lowerextremity.LEFT:NO EVIDENCE of deep vein thrombosis (DVT) of the commonfemoral vein. Comparison is made to previous lower extremity venous duplex examination dated December 29, 2024 (RIGHT: ACUTEfemoral deep vein thrombosis (DVT)). The acute right common femoral DVThas evolved into a more chronic process. No new thrombotic material wasidentified. Recommendations: Any questions prior to finalization, please call thereading physician during normal business hours at the phone number besidetheir name. Gregorio Avalos APRNPROVIDENCE BE[facility] CV VASCULAR ORDERABLES Sabi l Result * LDH (01/04/2025 5:22 AM EDT) Only the most recent of9 resultswithin the time period is included. Pathologist [facility] LDH 173 100 - 235 U/L 01/04/2025 6:13 AM EDT [facility] Blood Venous blood / Unknown 01/04/2025 5:22 AM EDT 01/04/2025 5:36 AM EDT Morris Wallace APRNPROVID[facility] LAB BLOOD ORDERABLES Sabi l Result [facility] [address] [place] [address], [place] [phone] * Anti XA unfractionated heparin (01/03/2025 7:51 AM EDT) Only the most recent of9 resultswithin the time period is included. ANTI XA UFH 0.68 0.30 - 0.70 IU/mL 01/03/2025 8:24 AM EDT [facility] Comment: Optimal time for testing is 6 hrs post dosage This test is specific for monitoring patients on UFH, and is not recommended for use with other Anti-Xa medications. Blood Venous blood / Unknown 01/03/2025 7:51 AM EDT 01/03/2025 8:10 AM EDT Naresh Pérez MD LAB BLOOD ORDERABLES Final Result [facility] [address] [place] [address], * Hepatitis B core antibody, total (01/01/2025 6:11 AM EDT) ANTI HBC Non-Reacti ve Non-Reacti ve 01/01/2025 12:17 PM EDT [facility] Blood Venous blood / Unknown 01/01/2025 6:11 AM EDT 01/01/2025 6:24 AM EDT Tatum Manzo MD LAB BLOOD ORDERABLES Final Resu lt Performing Organization Address City/[facility]/ZIP Co de Phone Number [facility] [address] [place] [address], * Hepatitis B Surface Antibody Quantitation (01/01/2025 6:11 AM EDT) ANTI HBS QUANT. >500.0 mIU/mL 01/01/2025 1:28 PM EDT [facility] Blood Venous blood / Unknown 01/01/2025 6:11 AM EDT 01/01/2025 6:24 AM EDT Narrative [facility] - 01/01/2025 1:28 PM EDT Vaccinated: >=10 mIU/mL, Positive (Immune) Unvaccinated: <10 mIU/mL, Negative (Not Immune) Tatum Manzo MD LAB BLOOD ORDERABLES Final Resu lt Performing Organization Address City/[facility] Co de Phone Number [facility] [address] [place] [address], * Hepatitis B surface antigen (01/01/2025 6:11 AM EDT) HEPATITIS B SURF AG Non-Reacti ve Non-Reacti ve 01/01/2025 2:38 PM EDT [facility] Blood Venous blood / Unknown 01/01/2025 6:11 AM EDT 01/01/2025 6:24 AM EDT Morris Wallace [employer] [facility] LAB BLOOD ORDERABLES Sabi l Result Performing Organization Address [facility] Co de Phone Number [facility] [address] [place] [address], * Transfusion reaction evaluation (12/31/2024 12:44 AM EDT) Transfusion Reaction No hemolytic reaction noted 01/18/2025 11:05 PM EDT [facility] Blood Venous blood / Unknown 12/31/2024 12:44 AM EDT 12/31/2024 1:41 AM EDT Tatum Manzo MD BLOOD BANK TEST ORDERABLES Sabi l Result Performing Organization Address City/[facility] Co de Phone Number [facility] Sarita [facility] [address] [place] [address], [place] * IR CICV non tunneled more than 5 years (12/30/2024 2:29 PM EDT) Anatomical Region Laterality Modality IR N/A X-Ray Angiograph y 12/30/2024 2:32 PM EDT Narrative 12/30/2024 2:37 PM EDT CENTRAL VENOUS CATHETER PLACEMENT WITH ULTRASOUND GUIDANCE [...] Pedro Rivera MD on 12/30/2024 2:37 PM Procedure Note Pedro Rivera MD - 12/30/2024 CENTRAL VENOUS CATHETER PLACEMENT WITH ULTRASOUND GUIDANCE DATE: 12/30/2024 2:36 PM INDICATION: Urgent plasmapheresis ATTENDING: Pedro Rivera MD SEDATION: 50 mcg of fentanyl was given for pain control. Lidocaine 1% wasgiven for local anesthesia. RADIATION DOSE: Automatic radiation exposure lowering techniques wereutilized. All elements of maximal sterile barrier techniques followedincluding: cap and mask and sterile gown and sterile gloves and a largesterile sheet and hand hygiene and 2% chlorhexidine for cutaneousantisepsis. The total fluoroscopic time used during the procedure was 0.4 min, a total of 1fluoroscopic spot images were obtained and saved in PACS , and thereference air kerma was 3.74 mGy. PROCEDURE: The procedure, risks, including technical failure, bleeding, infection,vessel injury, arrhythmia, loss of limb, and , and alternatives, werediscussed with the patient and all questions were answered. Writteninformed consent obtained. Accompanying paperwork was verified foraccuracy. Directed history and physical exam performed prior to the procedure. Medicationreconciliation performed by nursing personnel. Procedure was performed using a cap, sterile gown, sterile gloves, a largesterile sheet, hand hygiene and 2% chlorhexidine for cutaneous antisepsis.The patient was positioned supine on the table and prepped and draped inusual sterile fashion. A critical pause was performed with assisting personnel just prior to the procedure with the patient's identityconfirmed using 2 identifiers, confirming site and side. Ultrasound was used to demonstrate a patent right internal jugular veinand appropriate directional flow, with an image saved in the permanentmedical record. 1% lidocaine with epinephrine was used for localanesthesia. A small skin incision was made with blunt dissection into thesubcutaneous tissues. The vein was then punctured under real-time sonographic guidance.A wire was advanced in to the IVC. The tract was then upsized toaccommodate a 15 cm trialysis catheter with tip terminating at thecavoatrial junction. Catheter was secured in place with suture. Catheterfunction was tested, and all lumens were found to function well. Lumens of the catheterwere flushed with anticoagulant. The patient tolerated the procedure wellwith no immediate complication IMPRESSION: Successful image guided placement of a trialysis catheter via the rightinternal jugular vein with the catheter tip terminating at the cavoatrialjunction. The catheter is available for immediate use. Finalized by Pedro Rivera MD on 12/30/2024 2:37 PM Pedro Blanchard MD IMG IR ORDERABLES Final Res ult * Type and screen(includes indirect uday) (12/30/2024 12:03 PM EDT) Only the most recent of2 resultswithin the time period is included. ABO O 12/30/2024 12:44 PM EDT [facility] RH Negative 12/30/2024 12:44 PM EDT [facility] Antibody Screen Negative 12/30/2024 12:44 PM EDT [facility] Blood Venous blood / Unknown 12/30/2024 12:03 PM EDT 12/30/2024 12:03 PM EDT Tatum Manzo MD BLOOD BANK TEST ORDERABLES Edit ed Result - Final [facility] [address] [place] [address], [facility] [address] [place] [address], [place] * Vas venous duplex lwr bilateral (12/30/2024 10:18 AM EDT) Anatomical Region Laterality Modality Vascular Bilateral Ultrasound 12/30/2024 10:1 8 AM EDT Narrative 12/31/2024 7:58 PM EDT Right: Dilated, partially compressible common femoral with [...] at the phone number beside their name. Procedure Note Abhinav Santiago MD - 12/31/2024 Right: Dilated, partially compressible common femoral with hypoechoicintraluminal content and spontaneous, phasic spectral Doppler signals.Remaining visualized deep venous segments are compressible withspontaneous phasic spectral Doppler waveforms. Superficial veins are compressible. Left: Lower extremity deep veins are compressible with spontaneous phasicspectral Doppler waveforms; superficial veins are compressible withoutintraluminal content. Conclusions: RIGHT:ACUTE femoral deep vein thrombosis (DVT). NO EVIDENCEof superficial vein thrombosis of the lower extremity. LEFT:NO EVIDENCEof deep or superficial vein thrombosis of the lower extremity. Recommendations: Any questions prior to finalization, please call thereading physician during normal business hours at the phone number besidetheir name. Ellen Hawkins MD CV VASCULAR ORDERABLES Final Re sult * (ABNORMAL) Reticulocytes (12/30/2024 6:42 AM EDT) Only the most recent of3 resultswithin the time period is included. Reticulocyte Count 2.9(H) 0.4 - 2.2 % 12/30/2024 9:25 AM EDT [facility] Blood Venous blood / Unknown 12/30/2024 6:42 AM EDT 12/30/2024 6:42 AM EDT Tatum Manzo MD LAB BLOOD ORDERABLES Final Resu lt [facility] [address] [place] [address], [place] [phone] * Clinical Pathology Review (12/30/2024 12:00 AM EDT) Other 12/30/2024 01/01/2025 8:2 9 AM EDT Narrative [facility] - 01/01/2025 1:31 PM EDT [facility] [address] [place] [address] Clinical Pathology Report Patient Name:TEREZA DURAN:1975 (Age: 49)Gender:FTaken:12/30/2024Reported:01/01/2025Physician(s):Tatum Manzo M.D. ([phone])Copy To: Rec. #:[id number]: #[id number] Final Pathologic Diagnosis No serological evidence of [...] dissipation of signs/symptoms within an hour. [facility] Hemovigilance Module Surveillance Protocol v2.9 Report Electronically Signed Out 01/01/2025Apolinar Jones MD Interpretation performed at [facility], [address] [place] [address], License number: [id number]. Clinical History Stroke. TRANSFUSION REACTION CONSULTATION DATA/OBSERVATIONS: Repeat ABO/Rh typing (pre-and post-transfusion): O negative Repeat ABO/Rh typing on donor specimen: B negative (Plasma) PB: Negative Visible hemolysis in patient sample: No Specimen(s) Received Transfusion Reaction Fee Codes(s): 40304 us Tatum Manzo MD PATHOLOGY/CYTOLOGY ORDERABLES F inal Result [facility] * (ABNORMAL) Haptoglobin (12/29/2024 10:10 AM EDT) Only the most recent of2 resultswithin the time period is included. HAPTOGLOBIN <30(L) 32 - 228 mg/dL 12/29/2024 12:01 PM EDT [facility] Blood Venous blood / Unknown 12/29/2024 10:10 AM EDT 12/29/2024 10:11 AM EDT us Morris Wallace RAILWAY SIGNAL ELECTRICIAN-DIRECTOR MEDICAL AFFAIRS LAB BLOOD ORDERABLES Sabi l Result [facility] [address] [place] [address], [place] [phone] * Echo complete W/O contrast (12/28/2024 1:06 PM EDT) [facility] LVOT stroke volume 63.38 ml XCELERA FS 40 28 - 44 % XCELERA LVIDd 4.50 4.72 - 6.55 cm XCELERA LVIDs 2.70 2.78 - 4.21 cm XCELERA IVS 1.00 0.6 - 1.1 cm XCELERA PW 1.00 0.6 - 1.1 cm XCELERA LVOT diameter 2.10 cm XCELERA TDI 9.90 cm/s XCELERA MV TDI E' (medial) 5.87 cm/s XCELERA E/A ratio 1.02 XCELERA E wave deceleration time 156.00 msec XCELERA MV Peak E Diamond 101.00 cm/s XCELERA MV Peak A Diamond 99.40 cm/s XCELERA LA size 4.20 cm XCELERA Aortic root 2.90 cm XCELERA RV diastolic dimension (basal) 31.0 mm XCELERA TAPSE 2.54 cm XCELERA AV peak diamond 126.00 cm/s XCELERA LVOT peak diamond 0.82 m/s XCELERA AV VTI 31.00 cm XCELERA LVOT peak VTI 18.30 cm XCELERA AV mean gradient 4.00 mmHg XCELERA AV peak gradient 6.35 mmHg XCELERA AV valve area 2.04 XCELERA Valve area - Index 1.0 XCELERA MV pressure 1/2 time 46.00 ms XCELERA MV valve area p 1/2 method 4.78 cm2 XCELERA PV peak gradient 2.57 mmHg XCELERA LV ESV A2C 44.70 mL XCELERA LV ESV A4C 39.50 mL XCELERA LV RWT 2D 44.44 XCELERA AV Velocity Ratio 0.59 XCELERA Left Ventricle Mass 153.24040 [id number] 1 g XCELERA Interventricular Septum Diastolic Thickness by 2D 10 cm XCELERA RA area 16.9 cm2 XCELERA ZLVIDS -1.87 XCELERA ZLVIDD -2.11 XCELERA Energy loss index 12.87 XCELERA Anatomical Region Laterality Modality Chest N/A Ultrasound Narrative 12/28/2024 1:43 PM EDT Left Ventricle: Left ventricle appears normal in [...] is no evidence of aortic valve stenosis. Left Ventricle Left ventricle appears normal in size. There is mild increased wall thickness/hypertrophy. Systolic function is normal with an ejection fraction of 55-60%. No segmental wall motion abnormalities. Lateral E' is 9.90 cm/s. Medial E' is 5.87 cm/s. Right Ventricle Right ventricular size appears normal. The right ventricular basal diameter is 31.0 mm. Systolic function is normal. Left Atrium Left atrium is normal in size. Agitated saline bubble study revealed no evidence of right to left interatrial shunting . Right Atrium Right atrium is normal in size. The right atrial area is 16.9 cm2. IVC/SVC IVC appears normal. There is normal collapse with deep inspiration. Mitral Valve Mitral valve structure is normal. There is trace regurgitation. There is no evidence of mitral valve stenosis. Tricuspid Valve Tricuspid valve appears to be normal. There is trace regurgitation. There is no evidence of tricuspid valve stenosis. Aortic Valve The aortic valve is trileaflet. There is trace regurgitation. There is no evidence of aortic valve stenosis. Pulmonic Valve Pulmonic valve structure is grossly normal. There is no regurgitation or stenosis. The peak gradient is 2.57 mmHg. Ascending Aorta The aortic root is normal in size. Pericardium There is no pericardial effusion. Study Details A complete echo was performed using complete 2D, color flow Doppler and spectral Doppler. During the study the apical, parasternal, subcostal and suprasternal views were captured. Overall the study quality was good. Wall Scoring Baseline Score Index: 1.00 The left ventricular wall motion is normal. us Pedro Blanchard MD CV ECHO ORDERABLES Final Re sult * Ultrasound abdomen limited (12/28/2024 7:18 AM EDT) Anatomical Region Laterality Modality Body, Abdomen Ultrasound 12/28/2024 7:32 AM EDT Narrative 12/28/2024 7:56 AM EDT US ABDOMEN LMTD HISTORY: Thrombocytopenia COMPARISON: None [...] Prince Orozco DO on 12/28/2024 7:56 AM Procedure Note Prince Orozco DO - 12/28/2024 US ABDOMEN LMTD HISTORY: Thrombocytopenia COMPARISON: None TECHNIQUE: Multiple real-time grayscale images were obtained in transverseand sagittal projections. Color Doppler was used. FINDINGS: Diffusely increased hepatic echogenicity compatible with hepatocellulardisease. Although nonspecific, this is most likely secondary tosteatosis. Within these limits, no focal hepatic lesion demonstrated. No intrahepatic biliary dilatation. The common bile duct is not dilatedand measures 0.5 cm. Main portal vein is patent with appropriate direction of flow and peakvelocity of 28.1 cm/s. The gallbladder is surgically absent. Visualized portions of the pancreatic head and body are unremarkable. Included images of the spleen demonstrate normal echotexture. The spleenis normal in size measuring 8.7 cm in length. IMPRESSION: * Hepatic steatosis. * Otherwise unremarkable limited abdominal ultrasound. Approved by Carlo Epps DO on 12/28/2024 7:32 AM Prince Mireles DO have personally reviewed the image(s) and agree withand/or edited the report Finalized by Prince Orozco DO on 12/28/2024 7:56 AM Morris Wallace APRN-DIRECTOR MEDICAL AFFAIRS [facility] US ORDERABLES Final R esult * HIV 1&2 AB/AG Screen (P24 AG) (12/28/2024 3:39 AM EDT) HIV 1 AND 2 AB/AG SCREEN Non-Reacti ve Non-Reacti ve 12/28/2024 12:19 PM EDT [facility] Blood Venous blood / Unknown 12/28/2024 3:39 AM EDT 12/28/2024 3:39 AM EDT Narrative [facility] - 12/28/2024 12:19 PM EDT This information has been disclosed to you from confidential [...] release of HIV test results or diagnoses. Morris Wallace APRN-DIRECTOR MEDICAL AFFAIRS LAB BLOOD ORDERABLES Sabi l Result [facility] [address] [place] [address], * Hepatitis panel, acute (12/28/2024 3:39 AM EDT) HEPATITIS B SURF AG Non-Reacti ve Non-Reacti ve 12/28/2024 3:19 PM EDT [facility] HEPATITIS A IGM Non-Reacti ve Non-Reacti ve 12/28/2024 3:19 PM EDT [facility] HEPATITIS B CORE IGM Non-Reacti ve Non-Reacti ve 12/28/2024 3:19 PM EDT [facility] ANTI HCV W/PCR REFLX Non-Reacti ve Non-Reacti ve 12/28/2024 3:19 PM EDT [facility] Comment: If recent infection suspected, recommend repeat testing (>2 months). Hveecv-hh-wpmjxf ratio is <1.0. Blood Venous blood / Unknown 12/28/2024 3:39 AM EDT 12/28/2024 3:39 AM EDT Morris Wallace RAILWAY SIGNAL ELECTRICIAN-DIRECTOR MEDICAL AFFAIRS LAB BLOOD ORDERABLES Sabi l Result [facility] [address] [place] [address], * LUDIN Screen w/ Reflex (12/28/2024 3:39 AM EDT) LUDIN SCREEN W/REFLEX Negative Negative 12/28/2024 9:22 PM EDT [facility] Blood Venous blood / Unknown 12/28/2024 3:39 AM EDT 12/28/2024 3:39 AM EDT Narrative [facility] - 12/28/2024 9:22 PM EDT Testing performed using multiplex flow immunoassay. Eleven difference antigens associated with systemic autoimmunie diseases (dsDNA, Sm, Sm/PROJECT ASST, PROJECT ASST, Chromatin, SSA, SSB, Diane-1, Sc170, Ribo P, Centromere B) are included in this sreening tests. Pedro Blanchard MD LAB BLOOD ORDERABLES Final Result [facility] [address] [place] [address], [place] [phone] * Hemosiderin, random urine (12/27/2024 3:19 PM EDT) HEMOSIDERIN, URINE Negative Negative 2024 10:30 AM EDT [facility] Comment: ADDITIONAL INFORMATION This test was developed and its performance characteristics determined by [facility] in a manner consistent with CLIA requirements. This test has not been cleared or approved by the U.S. Food and Drug Administration. Test Performed by: [place] [address] [employer] Rehandler: Gladys Alcocer Ph.D.; CLIA# [id number] Urine Urine specimen collection, clean catch / Unknown 12/27/2024 3:19 PM EDT 12/27/2024 3:46 PM EDT Morris Wallace APRN-DIRECTOR MEDICAL AFFAIRS URINE ORDERABLES Final Re sult Performing Organization Address City/[facility]/ZIP Co de Phone Number [address] * (ABNORMAL) [id number] Inhibitor Yeaddiss Titer (12/27/2024 9:53 AM EDT) [id number] INHIBITOR TITER 0.6(H) <0.5 BU 12/29/2024 9:31 PM EDT [facility] Comment: ADDITIONAL INFORMATION This test was developed and its performance characteristics determined by [facility] in a manner consistent with CLIA requirements. This test has not been cleared or approved by the U.S. Food and Drug Administration. Test Performed by: [place] [address] [employer]ig[employer] Rehandler: Gladys Alcocer Ph.D.; CLIA# [id number] Blood Venous blood / Unknown 12/27/2024 9:53 AM EDT 12/27/2024 9:53 AM EDT Morris Wallace APRN-DIRECTOR MEDICAL AFFAIRS LAB ORDERABLES Final Res ult Performing Organization Address [facility]/State/ZIP Co de Phone Number [facility] [address] [place] [address], [place] * [id number] Inhibitor Screen (12/27/2024 9:53 AM EDT) [id number] PROFILE INTERPRETATION SEE COMMENTS 12/29/2024 9:31 PM EDT [facility] [employer] Comment: Severely reduced ZBPDVP89 activity can be observed in congenital/hereditary or acquired, autoimmune thrombotic thrombocytopenia purpura (TTP), or occasionally in other conditions including hemolytic uremic syndrome (HUS), hematopoietic stem cell and solid organ transplantation, liver disease, sepsis, DIC, , or effects of certain medications (e.g., ticlopidine, clopidogrel, cyclosporin, mitomycin C, quinine, etc.). The DMZMGB85 inhibitor titering assay (Yeaddiss assay) confirms presence of an inhibitor. These results are consistent with congenital/hereditary TTP or acquired TTP with a neutralizing antibody. Recommend clinical correlation and consider future repeat testing to follow/verify these findings if clinically indicated. Non-specific substrate proteolysis by other plasma proteases or recent plasma transfusion or plasma exchange may falsely raise RKXSLJ35 activity. Markedly elevated endogenous von Willebrand factor (VWF), hyperlipidemia, hyperbilirubinemia (greater than 6mg/dL) may falsely lower NZEVZX90 activity. Test Performed by: [facility] [address] [place] [address] [employer]ig[employer] Tobacco Rehandler: Gladys Alcocer Ph.D.; CLIA# [id number] CANCEL INTERPRETATION DNR 12/29/2024 9:31 PM EDT [facility] [employer] Blood Venous blood / Unknown 12/27/2024 9:53 AM EDT 12/27/2024 9:53 AM EDT Morris Wallace APRN-DIRECTOR MEDICAL AFFAIRS LAB ORDERABLES Final Res ult Performing Organization Address City/[facility]/ZIP Co de Phone Number [facility] [address] [place] [address], [place] * (ABNORMAL) [id number] Activity and Inhibitor Profile (12/27/2024 9:53 AM EDT) [id number] ACTIVITY <5(L) >=70 % 025 9:26 PM EDT [facility] Comment: ADDITIONAL INFORMATION This test was developed and its performance characteristics determined by [facility] in a manner consistent with CLIA requirements. This test has not been cleared or approved by the U.S. Food and Drug Administration. [id number] ACTIVITY INTERPRETATION DNR 12/29/2024 9:26 PM EDT [facility] XZSICQ19 ASSAY INTERPRETATION SEE COMMENTS 12/29/2024 9:26 PM EDT [facility] Comment: Please see [id number] Profile Interpretation for summary of QNNHZG43 Activity and MOSLMO67 Inhibitor Titer results. Test Performed by: [facility] [address] [place] [address] [employer]ig[employer] Rehandler: Gladys Alcocer Ph.D.; CLIA# [id number] ASSAY CANCEL INTERPRETATION DNR 12/29/2024 9:26 PM EDT [facility] Blood Venous blood / Unknown 12/27/2024 9:53 AM EDT 12/27/2024 9:53 AM EDT Morris Wallace APRN-DIRECTOR MEDICAL AFFAIRS LAB BLOOD ORDERABLES Sabi l Result [facility] [address] [place] [address], [place] * PRUP Generic Order (12/27/2024 9:53 AM EDT) TEST RESULT SEE NOTE 12/29/2024 8:32 PM EDT [facility] [employer] Comment: Test name Result Flag Units RefIntvl Hemoglobin, Plasma 5.4 mg/dL 0.0-9.7 Performed By: [employer] [address] [place] [address] C Developer: Nacho Kapadia MD, PhD CLIA Number: [id number] Blood 12/27/2024 9:53 AM EDT 12/27/2024 9:53 AM EDT Naresh Pérez MD LAB BLOOD ORDERABLES Final Result Performing Organization Address [facility]/ZIP Co de Phone Number [employer] [address] [place] [address], [place] * Direct Uday (12/27/2024 9:53 AM EDT) Polyspecific PB Negative 12/28/19 1:29 PM EDT [facility] Blood Venous blood / Unknown 12/27/2024 9:53 AM EDT 12/27/2024 9:53 AM EDT Morris BONE BLOOD BANK TEST ORDERABLE S Final Result Performing Organization Address [facility] Co de Phone Number [facility] [address] [place] [address], [facility] [address] [place] [address], [place] * Potassium (12/27/2024 9:53 AM EDT) [facility] POTASSIUM 4.4 3.5 - 5.0 mmol/L 12/27/2024 10:46 AM EDT [facility] Blood Venous blood / Unknown 12/27/2024 9:53 AM EDT 12/27/2024 9:53 AM EDT Sam Mendoza MD LAB BLOOD ORDERABLES Final Re sult Performing Organization Address City/[facility]/ZIP Co de Phone Number [facility] [address] [place] [address], * Folate (12/27/2024 9:53 AM EDT) FOLIC ACID 11.6 >5.8 ng/mL 12/27/2024 2:05 PM EDT [facility] Blood Venous blood / Unknown 12/27/2024 9:53 AM EDT 12/27/2024 9:53 AM EDT Morris Wallace RAILWAY SIGNAL ELECTRICIAN-DIRECTOR MEDICAL AFFAIRS LAB BLOOD ORDERABLES Sabi l Result [facility] [address] [place] [address], * Vitamin B12 (12/27/2024 9:53 AM EDT) VITAMIN B12 254 180 - 914 pg/mL 12/27/2024 2:04 PM EDT [facility] Blood Venous blood / Unknown 12/27/2024 9:53 AM EDT 12/27/2024 9:53 AM EDT Morris Wallace RAILWAY SIGNAL ELECTRICIAN-DIRECTOR MEDICAL AFFAIRS LAB BLOOD ORDERABLES Sabi l Result [facility] [address] [place] [address], * Platelet set-up: Number of Units: 1 (12/27/2024 9:00 AM EDT) Blood component type [id number] BLOOD BANK - [place] Unit number [id number] BL OOD BANK - [place] Unit ABO O BLOOD BANK - [place] Unit RH NEG BLOOD BANK - [place] Status of unit TRANSFUSED BLOO D BANK - [place] Expiration Date [id number] BLOOD BANK - [place] BB Type Barcode 9500 BLOOD BANK - [place] Blood Venous blood / Unknown 12/27/2024 9:00 AM EDT us Blanka Lopez MD BLOOD BANK PRODUCT ORDERABLES E dited Result - Final BLOOD BANK - [place] * CT brain without contrast (12/27/2024 7:21 AM EDT) Only the most recent of2 resultswithin the time period is included. Anatomical Region Laterality Modality Neuro, Head, Head and Neck, Neuro Covera N/A Computed Tomography 12/27/2024 7:23 AM EDT Narrative 12/27/2024 7:30 AM EDT STUDY: CT HEAD WITHOUT CONTRAST CLINICAL HISTORY: [...] Mando Hicks MD on 12/27/2024 7:30 AM Procedure Note Mando Hicks MD - 12/27/2024 STUDY: CT HEAD WITHOUT CONTRAST CLINICAL HISTORY: Transient altered level of consciousness. COMPARISON: None. TECHNIQUE: CT head was performed without contrast utilizing axialreconstruction with images reviewed in bone and brain windows. Automatedexposure control was utilized. FINDINGS: Large amount of motion artifact. No acute hemorrhage edema nor masseffect. Decreased attenuation in the left MCA distributions basal gangliaconsistent with known areas of nonhemorrhagic ischemia. Ventricles andcisterns are stable. Chronic inflammation of the ethmoids. IMPRESSION: * Nonhemorrhagic ischemia left basal ganglia as best seen on recent CTperfusion. No significant mass effect or midline shift at this point. All CT scans at this facility use dose modulation, iterativereconstruction, and/or weight based dosing when appropriate to reduceradiation dose to as low as reasonably achievable. Finalized by Mando Hicks MD on 12/27/2024 7:30 AM us Sam Mendoza MD IMG CT ORDERABLES Final Resul t * (ABNORMAL) Platelet count (12/27/2024 6:03 AM EDT) Only the most recent of2 resultswithin the time period is included. Platelet Count 39(L) 150 - 450 X10E9/L 12/27/2024 7:42 AM EDT [facility] Blood Venous blood / Unknown 12/27/2024 6:03 AM EDT 12/27/2024 6:03 AM EDT us Sam Mendoza MD LAB BLOOD ORDERABLES Final Re sult [facility] [address] [place] [address], [place] [phone] * Transfuse platelets: (12/27/2024 3:45 AM EDT) us Blanka Lopez MD BLOOD TRANSFUSION ORDERABLES Fi nal Result * Clinical Pathology Blood Smear Review Clinical (12/26/2024 9:08 PM EDT) Case Report Clinical Pathology Report Case: [id number] Authorizing Provider: SMITHA Kiran Collected: 12/26/20242107 Ordering Location: [facility] Received: 12/26/2024 2108 - GEN 8 ICU Pathologist: Tevin Garcia MD Specimen: Blood, Venous 01/01/2025 2:20 PM EDT [facility] Final Diagnosis Peripheral smear review: Patient with hereditary TTP, and now with: - Reactive neutrophilic leukocytosis, - Mild normocytic anemia with 2% schistocytes/helmet cells - Moderate thrombocytopenia with large young forms, see comment 01/01/2025 2:20 PM EDT [facility] at 1420 EDT Comment The CBC and smear review is significant [...] was discussed with Dr. Manzo on 12/27/2024. 01/01/2025 2:20 PM EDT [facility] Embedded Images 01/01/2025 2:20 PM EDT [facility] Blood Venous blood / Unknown 12/26/2024 9:08 PM EDT 12/26/2024 9:08 PM EDT Mariann Ortiz RAILWAY SIGNAL ELECTRICIAN-[facility] LAB BLOOD ORDERABLES Final Result [facility] [address] [place] [address], [place] [phone] * NEURO INVASIVE, STROKE THROMBECTOMY (12/26/2024 5:24 PM EDT) Anatomical Region Laterality Modality X-Ray Angiograph y Narrative 12/27/2024 2:30 PM EDT Tereza Duran is 49 y.o. who was transferred to [facility] with acute onset left hemispheric stroke symptoms. Noncontrast head CT scan [...] to failure, arterial injury, stroke, intercerebral hemorrhage, contrast nephropathy, groin complication and/or was quoted. Consent was obtained. Procedure: Tereza Duran was identified and brought to the neuro IR suite. Patient was placed supine on the angio table. Bilateral groins were shaved, prepped and the patient was draped in the usual sterile manner. Using modified Seldinger technique a 6 Latvian sheath was advanced in the right common femoral artery. Through this sheath we now advanced a 5 Latvian Seymour 2 catheter over an 035 wire [...] left internal carotid artery. The diagnostic catheter and the short groin sheath was exchanged for a 6 Latvian 90 cm NeuronMax sheath which was advanced into the distal cervical segment of the left internal carotid artery. Through this sheath we now advanced a triaxial assembly of Dory 6 Latvian mid size catheter over a velocity microcatheter [...] Follow-up angiographic run from the guide sheath showed that the guide now in the external carotid artery. At this point, NeuroMax was pulled down into the left common carotid artery. Under roadmap, Dory 6 Latvian was advanced over synchro microwire into the distal cervical ICA. Follow-up angiographic run from the Madeline catheter showed recanalization of the left middle cerebral artery. With pump aspiration, the Madeline 6 Latvian was retrieved and then we did angiographic mckinney from the guide sheath which showed severe vasospasm involving the mid cervical ICA and unfortunately we occlusion of the distal left MCA M1 segment. Now using same triaxial system composed of Dory 6 Latvian mid size catheter over a velocity microcatheter [...] Sheath was removed. Groin was closed using Angio-Seal device. Findings: Left Common Carotid Artery Angiogram: The left common carotid artery angiogram shows normal opacification of the left common carotid artery up to the level of its bifurcation. The left common carotid artery at its bifurcation shows mild atherosclerotic changes. The left external carotid artery is identified. The left external carotid artery fills well with normal supply to head and face. The left internal carotid artery fills well through its cervical, horizontal and ascending petrous, cavernous and supraclinoid segments. In its supraclinoid course the left ophthalmic artery is identified. Abrupt truncation of the left MCA M1 segment in its distal segment noted. The left anterior cerebral artery and its distal branches fill well. In mid to late arterial phase terminal left DAVE division branches are filling the left MCA territory in a retrograde fashion. Left internal carotid artery angiogram prior to aspiration thrombectomy showed the above to better advantage. Left internal carotid artery angiogram post thrombectomy and intra-arterial verapamil infusion for ICA vasospasm now show that the left MCA M1 segment as completely recanalized. Distal left MCA division branches are filling well. No abrupt vessel cut off noted. No intracranial aneurysms noted. Additionally there is markedly improved flow through the left ICA. Right Common Femoral Artery Angiogram: The right common femoral artery angiogram shows normal opacification of the right common femoral artery and its branches with normal runoff to the distal extremity. Impression:Tereza Duran underwent diagnostic cerebral angiography and aspiration thrombectomy [...] passes were 2. SBP goal <160 mmHg. us Romero Daly MD INV NEURO ORDERABLES Final Resul t * CT cerebral perfusion analysis (12/26/2024 4:09 PM EDT) Anatomical Region Laterality Modality Neuro, Vascular, Head and Neck, Head N/A Computed Tomography 12/26/2024 4:37 PM EDT Narrative 12/26/2024 4:[address] BRAIN PERFUSION IMAGING: HISTORY: strke TECHNIQUE: Axial CT brain perfusion was performed during intravenous administration of 40 mL Omnipaque 350. Postprocessing with RAPID and/or Gullivearth software was used. Specifically, maps of cerebral blood flow, cerebral blood volume, mean transit time and Tmax were calculated by using the perfusion source data. COMPARISON: CT brain same date. Image quality: Sufficient Arterial input function GEMA selected: Proximal left MCA Venous outflow function GEMA: Hernando of sinuses FINDINGS: CT Perfusion Characteristics: CBF<30% [...] Prince Orozco DO on 12/26/2024 4:42 PM Procedure Note Prince Orozco DO - 12/26/2024 CT BRAIN PERFUSION IMAGING: HISTORY: strke TECHNIQUE: Axial CT brain perfusion was performed during intravenousadministration of 40 mL Omnipaque 350. Postprocessing with [employer] and/wuaki.tv software was used. Specifically, maps of cerebral blood flow,cerebral blood volume, mean transit time and Tmax were calculated by usingthe perfusion source data. COMPARISON: CT brain same date. Image quality: Sufficient Arterial input function GEMA selected: Proximal left MCA Venous outflow function GEMA: Hernando of sinuses FINDINGS: CT Perfusion Characteristics: CBF<30% volume: 0 mL. Tmax>6.0s volume: 141 mL Mismatch volume: 141 mL Mismatch ratio: Infiltrate Tmax>4.0s volume: 185 Comment: Scattered foci of low density in the right frontal, leftparietal and basal ganglia distribution. IMPRESSION: * Findings compatible with known left MCA disease with parameterssuggesting large penumbra. Note: Perfusion-CT was required in this patient because it: - assesses brain perfusion, - allows to screen for brain ischemia even before morphological damage canbe seen, - can confirm or rule out the presence of a large, hemispheric, ischemicstroke and/or look at the presence of at risk tissue. All CT scans at this facility use dose modulation, iterativereconstruction, and/or weight based dosing when appropriate to reduceradiation dose to as low as reasonably achievable. Finalized by Prince Orozco DO on 12/26/2024 4:42 PM us Delon Gary MD IMG CT ORDERABLES Final Result * X-ray chest 1 view stroke (12/26/2024 2:40 PM EDT) Anatomical Region Laterality Modality Body, Chest N/A Computed Radiogr aphy 12/26/2024 2:41 PM EDT Narrative 12/26/2024 2:53 PM EDT History: Mental status changes Procedure: Chest AP portable upright Comparison: 10/03/2013 Findings: The heart and lungs show no acute findings, and the mediastinum and darin are grossly negative . No pneumothorax. Impression: No acute pulmonary process. Finalized by Esteban Schulz MD on 12/26/2024 2:53 PM Procedure Note Esteban Schulz MD - 12/26/2024 History: Mental status changes Procedure: Chest AP portable upright Comparison: 10/03/2013 Findings: The heart and lungs show no acute findings, and the mediastinumand darin are grossly negative . No pneumothorax. Impression: No acute pulmonary process. Finalized by Esteban Schulz MD on 12/26/2024 2:53 PM Glenys Jackson MD IMG DIAGNOSTIC IMAGING ORDERA BLES Final Result from Last 3 Months Insurance [employer] MEDICA[employer] Advance Directives * Full Code (Latest Code Status on File) Date Activated Date Inactivated Comments 01/15/2025 5:05 PM 01/16/2025 5:49 PM * Full Code Date Activated Date Inactivated Comments 12/26/2024 9:33 PM 01/05/2025 7:45 PM Care Teams Softball Coach Relationship Specialty Start Date End Date Destin Simeon MD [address] [place] [address] PCP - General Family Medicine 12/26/24
--- OUTSIDE RECORDS SUMMARY | 2025-01-22 01:23 | XMS_ITS | Encounter Summary ---
Author Organization [facility] Address [address] [place] [address] Care Team Providers Care Web Content Manager Name Role Phone Destin Simeon MD Primary Care Provider [phone] Destin Simeon MD Unavailable Encounter Details Date Type Department Care Team (Late st Contact Info) Description 05/12/2024 External Result Encounter [facility] [address] [place] [phone] Destin Simeon MD [address] [place] [address] Social History Tobacco Use Types Packs/Day Years [...] often do you attend chur ch or mandaen services? More than 4 times per year 02/04/2024 Do you belong to any clubs o r organizations such as temple groups, unions, fraternal or athletic groups, or [...] [facility] [address] [place] [address] Destin Simeon MD [address] [place] [address] 09/11/2025 3:00 PM EST Office Visit [facility] [address] [facility] [place] [phone] Blayne Rangel, DO [address] [place], [place] [id number] documented as of this encounter Procedures Procedure Name Priority Date/Time Associated Diagnosis Comments XR LUMBAR SPINE 2-3 VIEWS 05/15/2024 12:19 AM EDT XR THORACIC SPINE 2 VIEWS 05/15/2024 12:19 AM EDT XR CERVICAL SPINE 2-3 VIEWS 05/15/2024 12:18 AM EDT XR RIBS 3 VIEWS BILATERAL WITH CHEST POSTEROANTERIOR 05/15/2024 12:17 AM EDT XR SHOULDER 2+ VIEWS RIGHT 05/12/2024 3:50 PM EDT documented in this encounter Results * XR lumbar spine 2 or 3 views (05/15/2024 12:19 AM EDT) Anatomical Region Laterality Modality Spine, L-spine Radiographic Pily ging 05/15/2024 12:1 9 AM EDT Narrative 05/15/2024 12:18 AM EDT THIS EXAM WAS PERFORMED AT [facility] XR SPINE LUMBAR 2 OR 3 VWS Clinical history:Chronic back pain, unspecified back location, unspecified back pain laterality Comparison: 06/12/2018 Findings: Transitional lumbosacral segment. There is multilevel degenerative disc disease with disc height loss and endplate degenerative changes most pronounced at L4-L5 and L5-S1. Impression: Lower lumbar degenerative disc disease without evidence of acute osseous abnormality. Finalized by Rad Flor MD on 05/15/2024 12:18 AM Procedure Note Radiology RadiologistMD - 05/15/2024 THIS EXAM WAS PERFORMED AT [facility] XR SPINE LUMBAR 2 OR 3 VWS Clinical history:Chronic back pain, unspecified back location, unspecifiedback pain laterality Comparison: 06/12/2018 Findings: Transitional lumbosacral segment. There is multilevel degenerative discdisease with disc height loss and endplate degenerative changes mostpronounced at L4-L5 and L5-S1. Impression: Lower lumbar degenerative disc disease without evidence of acute osseousabnormality. Finalized by Rad Flor MD on 05/15/2024 12:18 AM Destin Simeon MD IMG XR PROCEDURES Final Result * XR thoracic spine 2 views (05/15/2024 12:19 AM EDT) Anatomical Region Laterality Modality Spine, T-spine Radiographic Pily ging 05/15/2024 12:1 9 AM EDT Narrative 05/15/2024 12:17 AM EDT THIS EXAM WAS PERFORMED AT [facility] XR SPINE THORACIC 2 VWS Clinical history:Chronic back pain, unspecified back location, unspecified back pain laterality Comparison: None. Findings: Multilevel degenerative disc disease with disco loss and endplate degenerative changes. No acute process fracture dislocation. Impression: Multilevel degenerative disc disease. No evidence of acute osseous abnormality. Finalized by Rad Flor MD on 05/15/2024 12:17 AM Procedure Note Radiology RadiologistMD - 05/15/2024 THIS EXAM WAS PERFORMED AT [facility] XR SPINE THORACIC 2 VWS Clinical history:Chronic back pain, unspecified back location, unspecifiedback pain laterality Comparison: None. Findings: Multilevel degenerative disc disease with disco loss and endplatedegenerative changes. No acute process fracture dislocation. Impression: Multilevel degenerative disc disease. No evidence of acute osseousabnormality. Finalized by Rad Flor MD on 05/15/2024 12:17 AM Destin Simeon MD IMG XR PROCEDURES Final Result * XR cervical spine 2 or 3 views (05/15/2024 12:18 AM EDT) Anatomical Region Laterality Modality Spine, C-spine Radiographic Pily ging 05/15/2024 12:1 8 AM EDT Narrative 05/15/2024 12:17 AM EDT THIS EXAM WAS PERFORMED AT [facility] XR SPINE CERVICAL 3 VWS OR LESS Clinical history:Chronic neck pain Comparison: None. Findings: Multilevel degenerative disc disease with disco loss and endplate degenerative changes most pronounced at C4 C5, C5 C6 and C6 C7. No prevertebral soft tissue swelling. No vertebral body height loss. The dens is intact. Impression: Multilevel degenerative disc disease. No acute process. Finalized by Rad Flor MD on 05/15/2024 12:17 AM Procedure Note Radiology, Radiologist, MD - 05/15/2024 [facility] X[facility] SPINE CERVICAL 3 VWS OR LESS Clinical history:Chronic neck pain Comparison: None. Findings: Multilevel degenerative disc disease with disco loss and endplatedegenerative changes most pronounced at C4 C5, C5 C6 and C6 C7. Noprevertebral soft tissue swelling. No vertebral body height loss. Thedens is intact. Impression: Multilevel degenerative disc disease. No acute process. Finalized by Rad Flor MD on 05/15/2024 12:17 AM Destin Simeon MD IM XR PROCEDURES Final Result * XR ribs 3 views bilateral w chest posteroanterior (05/15/2024 12:17 AM EDT) Anatomical Region Laterality Modality Rib, Abdomen Bilateral Radiographic Pily ging 05/15/2024 12:1 7 AM EDT Narrative 05/15/2024 12:16 AM EDT THIS EXAM WAS PERFORMED AT [facility] XR RIBS BILAT W PA CHEST MIN 4 VW Clinical history:Rib pain chest pain Comparison: None. Findings: No focal opacity, effusion or pneumothorax. Cardiomediastinal silhouette is within normal limits. There is no evidence of contour deforming or displaced rib fracture identified. Evaluation is compromised by underpenetration related to body habitus. Impression: No definitive acute cardiopulmonary process or displaced rib fracture. Finalized by Rad Flor MD on 05/15/2024 12:16 AM Procedure Note Radiology, Radiologist, - 05/15/2024 THIS EXAM WAS PERFORMED AT [facility] XR RIBS BILAT W PA CHEST MIN 4 VW Clinical history:Rib pain chest pain Comparison: None. Findings: No focal opacity, effusion or pneumothorax. Cardiomediastinal silhouetteis within normal limits. There is no evidence of contour deforming ordisplaced rib fracture identified. Evaluation is compromised byunderpenetration related to body habitus. Impression: No definitive acute cardiopulmonary process or displaced rib fracture. Finalized by Rad Flor MD on 05/15/2024 12:16 AM Destin Simeon MD IMG XR PROCEDURES Final Result * XR shoulder 2+ views right (05/12/2024 3:50 PM EDT) Anatomical Region Laterality Modality Upper Extremities, Shoulder Right Radi ographic Imaging 05/12/2024 3:50 PM EDT Narrative 05/12/2024 3:49 PM EDT THIS EXAM WAS PERFORMED AT [facility] CLINICAL INFORMATION: Chronic right shoulder pain TECHNIQUE: XR SHOULDER RT MIN 2 VWS 3 views the right shoulder were obtained. Mild AC joint degenerative changes noted. Is also mild glenohumeral degeneration. No acute fractures seen. No dislocation. IMPRESSION: Mild degenerative changes. Finalized by Nicolás Figueroa MD on 05/12/2024 3:49 PM Procedure Note Radiology, Radiologist, - 05/12/2024 THIS EXAM WAS PERFORMED AT [facility] CLINICAL INFORMATION: Chronic right shoulder pain TECHNIQUE: XR SHOULDER RT MIN 2 VWS 3 views the right shoulder were obtained. Mild AC joint degenerativechanges noted. Is also mild glenohumeral degeneration. No acutefractures seen. No dislocation. IMPRESSION: Mild degenerative changes. Finalized by Nicolás Figueroa MD on 05/12/2024 3:49 PM Destin Simeon MD IMG XR PROCEDURES Final Result documented in this encounter Visit Diagnoses Not on filedocumented in this encounter Care Teams Web Content Manager Relationship Specialty Start Date End Date Destin Simeon MD [address] [place] [phone] PCP - General Family Medicine 01/20/24 Destin Simeon MD [address] [place] [address] PCP - [facility] 08/30/24 documented as of this encounter
--- OUTSIDE RECORDS SUMMARY | 2025-01-22 01:23 | XMS_ITS | Encounter Summary ---
Author Organization [facility] Address [address] [place] [address] Care Team Providers Care Precision Millwright Name Role Phone Destin Simeon MD Primary Care Provider [phone] Destin Simeon MD Unavailable Encounter Details Date Type Department Care Team (Late st Contact Info) Description 02/22/2024 Orders Only [facility] [address] [place] [address] Destin Simeon MD [address] [place] [address] Social History Tobacco Use Types Packs/Day Years [...] often do you attend chur ch or muslim services? More than 4 times per year 02/04/2024 Do you belong to any clubs o r organizations such as worship groups, unions, fraternal or athletic groups, or [...] [facility] [address] [place] [address] Destin Simeon MD [address] [place] [phone] 09/11/2025 3:00 PM EST Office Visit [facility] [address] [place] [phone] Blayne Rangel, DO [address] [place], [place] [phone] documented as of this encounter Visit Diagnoses Not on filedocumented in this encounter Care Teams Precision Millwright Relationship Specialty Start Date End Date Destin Simeon MD [address] [place] [phone] PCP - General Family Medicine 01/20/24 Destin Simeon MD [address] [place] [phone] PCP - [facility] 08/30/24 documented as of this encounter
--- OUTSIDE RECORDS SUMMARY | 2025-01-22 01:23 | XMS_ITS | Encounter Summary ---
Author Organization [facility] Address [address] [place] [address] Care Team Providers Care Film Booker Name Role Phone Destin Simeon MD Primary Care Provider [phone] Destin Simeon MD Unavailable Encounter Details Date Type Department Care Team (Late st Contact Info) Description 01/09/2025 Patient Outreach [facility] [address] [place] [address] Cecilia Schumacher LPN Social History Tobacco Use Types Packs/Day Years [...] 02/04/2024 How often do you attend chur or cheondoism services? More than 4 times per year 02/04/2024 Do you belong to any clubs o r organizations such as christian groups, unions, fraternal or athletic groups, or [...] AM EDT documented as of this encounter Progress Notes * Cecilia Schumacher LPN - 01/09/2025 9:26 AM EDT Flowsheet Row Patient Outreach from 01/09/2025 in [facility] with Cecilia Schumacher LPN Hospital Information ED, Hospital or Long-Term Facility Discharge? Hospital Patient has been contacted within two business days of discharge No Have two attempts been made to contact the patient within two business days of being discharged? 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
--- OUTSIDE RECORDS SUMMARY | 2025-01-22 01:23 | XMS_ITS ---
Author Organization [facility] Address [address] [place] [address] Care Team Providers Care Tree Pruner Name Role Phone Destin Simeon MD Primary Care Provider [phone] Destin Simeon MD Unavailable Inpatient Discharge Transitional Care Management (TCM) Status:Closed (Closed) Start date:01/16/2025 Enrollment date:01/17/2025 Enrollment reason:Identified using hospital discharge data End date:01/17/2025 Close reason:Moved to 30 Day Monitoring Program Overview Patient discharged from [facility] on 01/16. Please contact for hospital HI and schedule follow-up appointment within 7-14 days. Continued Care and Services Coordination
--- OUTSIDE RECORDS SUMMARY | 2025-01-22 01:23 | XMS_ITS ---
Author Organization [facility] Address [address] [place] [address] Care Team Providers Care Personnel Technician Name Role Phone Destin Simeon MD Primary Care Provider [phone] Destin Simeon MD Unavailable Inpatient Discharge Transitional Care Management (TCM) Status:Closed (Closed) Start date:01/05/2025 Enrollment date:01/08/2025 Enrollment reason:Identified using hospital discharge data End date:01/09/2025 Close reason:Unable to reach patient Overview Patient discharged from [facility] on 01/05. Please contact for hospital HI and schedule follow-up appointment within 7-14 days. Continued Care and Services Coordination
--- OUTSIDE RECORDS SUMMARY | 2025-01-22 01:23 | XMS_ITS | Encounter Summary ---
Author Organization [facility] Address [address] [place] [address] Care Team Providers Care Leveler Name Role Phone Destin Simeon MD Primary Care Provider Destin Simeon MD Unavailable Encounter Details Date Type Department Care Team (Late st Contact Info) Description 01/16/2025 Telephone [facility] [address] [place] [address] Destin Simeon MD [address] [place] [address] Social History Tobacco Use Types Packs/Day Years [...] often do you attend chur ch or baptism services? More than 4 times per year 02/04/2024 Do you belong to any clubs o r organizations such as denominational groups, unions, fraternal or athletic groups, or [...] AM EDT documented as of this encounter Miscellaneous Notes * Telephone Encounter - Mikayla Hairston - 01/16/2025 1:05 PM EDT Doyle a nursing career development engineer at [facility] called to notify you about the patient. Nurse stated that she wanted to give you a heads up before that appointment that it sounds like the patientmight be having some post stroke like depression or grieving. Patient has stated that her life willnot be the same and apparently trying to get her family to do most things for her that she is completely able to do. an documented in this encounter Plan of Treatment Upcoming Encounters Date Type Department Care Team (Late st Contact Info) Description 02/02/2025 9:30 AM EDT Office Visit [facility] [address] [place] [address] Destin Simeon MD [address] [place] [address] 09/11/2025 3:00 PM EST Office Visit [facility] [address] [place] [phone] Blayne Rangel, DO [address] [place] [place] [address] documented as of this encounter Visit Diagnoses Not on filedocumented in this encounter Care Teams Leveler Relationship Specialty Start Date End Date Destin Simeon MD [address] [place] [phone] PCP - General Family Medicine 01/20/24 Destin Simeon MD [address] [place] [address] PCP - [facility] 08/30/24 documented as of this encounter
--- OUTSIDE RECORDS SUMMARY | 2025-01-22 01:23 | XMS_ITS | Encounter Summary ---
Author Organization [facility] Address [address] [place] [address] Care Team Providers Care Manager Freelance Name Role Phone Destin Simeon MD Primary Care Provider [phone] Destin Simeon MD Unavailable Encounter Details Date Type Department Care Team (Late st Contact Info) Description 01/17/2025 Patient Outreach [facility] [address] [place] [phone] Unique Vogt LPN Social History Tobacco Use Types Packs/Day [...] How often do you attend chur or judaism services? More than 4 times per year 02/04/2024 Do you belong to any clubs o r organizations such as scientologist groups, unions, fraternal or athletic groups, or [...] as of this encounter Progress Notes * Unique Vogt LPN - 01/17/2025 12:15 PM EDT This Nurse called patient to complete [facility]osp [facility]. She requested that I call her daughter, Nolan, instead. Called and LVM on Nolan's cell to call back [phone]. * Unique Vogt LPN - 01/17/2025 12:15 PM EDT Images from the original note were not included. Pt was adm to [facility] on 01/15 for stoke like symptom, and was DC on 01/16. Symptoms included left-sided facial droop, slurred speech, and EMERSON. Per DC summary, CT of brain, angiogram, and MRIwere showed no signs of CVA. She have a prev stroke on 12/26. Family has noticed patient being more sad since last stroke. 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 Pt was DC with Wellbutrin 150mg once a day and Outpatient PT. This nurse spoke with patient's daughter, Nolan, and completed Hosp [facility]. She reported that patient lives with her and isat home alone when she is at work. Daughter has noticed patient to be depressed since last stroke. She has started Wellbutrin this AM. This nurse offered and explained CCM 30 day with SW. Nolan wasagreeable for this nurse to set that up. She was unable to go over meds at this time but I did add Wellbutrin to current med list. I kindly reminded daughter of HFU appt with Dr. Simeon on 02/02. Nolan understood and declined any needs at this time. Flowsheet Row Patient Outreach from 01/17/2025 in [facility] with Unique Vogt LPN Hospital Information ED, Hospital or Custodial Facility Discharge? Hospital Patient has been contacted within two business days of discharge Yes Diagnosis Stroke like symptoms, Migraine, Depression Discharge Date 01/16/25 Discharged To: Home Setting Discharge Hospital [facility] Engagement Call Start Time 1219 Admission Date 01/15/25 Medications Discharge medications reviewed and reconciled from hospital? No [Daughter was unable to go over medications as this time.] Is the patient having any side effects they believe may be caused by any medication additions or changes? No Does the patient have all medications ordered at discharge? Yes Nursing Interventions No intervention needed Prescription Comments New: Wllbutrin 150mg po every AM Is the patient taking all medications as directed (includes completed medication regime)? Yes Nursing Interventions Nurse provided patient education Appointments Does the patient have a primary care provider? Yes [Dr. Simeon on 02/02 at 9:30am] Nursing Interventions Verified appointment date/time/provider Self Management Does patient have home health? no Patient Teaching Does the patient have access to their discharge instructions? Yes Nursing Interventions Reviewed instructions with patient What is the patient's perception of their health status since discharge? Improving Is the patient/caregiver able to teach back the hierarchy of who to call/visit for symptoms/problems? PCP, Specialist, Home Health nurse, Urgent Care, ED, 911 Yes Wrap Up Wrap Up Additional Comments DI: CT brain, CT angiogram, CXR, MRI, ECHO, ABD US, VAS VENOUS DUPLEX BILAT,BW Call End Time 1222 * MARCELO Jack - 01/17/2025 12:15 PM EDT Noted. 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
--- OUTSIDE RECORDS SUMMARY | 2025-01-22 01:23 | XMS_ITS | Encounter Summary ---
Author Organization [facility] Address [address] [place] [address] Care Team Providers Care Consumer Insight Manager Name Role Phone Destin Simeon MD Primary Care Provider [phone] Destin Simeon MD Unavailable Encounter Details Date Type Department Care Team (Late st Contact Info) Description 01/18/2025 Clinisync Result Encounter [facility] External Department Unsolicited Provider, Generic External Data Social History Tobacco Use Types Packs/Day Years [...] week 02/04/2024 How often do you attend [facility] or confucianist services? More than 4 times per year [...] Office Visit [facility] [address] [place] [address] Destin Simeon MD [address] [place] [address] 09/11/2025 3:00 PM EST Office Visit [facility] [address] [place] [address] Blayne Rangel, DO [address] [place] [address] documented as of this encounter Procedures Procedure Name Priority Date/Time Associated Diagnosis Comments CCF CMP (CMP) (FOR REMOTE [facility] USE) Routine 01/18/2025 8:07 AM EDT ALL CBC WITH AUTO DIFF Routine 01/18/2025 8:07 AM EDT documented in this encounter Results * (ABNORMAL) CCF CMP (CMP) (FOR REMOTE [facility] USE) (01/18/2025 8:07 AM EDT) SODIUM 141 136 - 145 mmol/L TBH POTASSIUM 4.2 3.5 - 5.1 mmol/L TBH CHLORIDE 103 98 - 107 mmol/L TBH CARBON DIOXIDE 27.9 21.0 - 32.0 mmol/L TBH ANION GAP 14.3 TBH GLUCOSE 163(H) 74 - 106 mg/dL TBH BLOOD UREA NITROGEN 16.0 7.0 - 18.0 mg/dL TBH CREATININE 0.90 0.55 - 1.02 mg/dL TBH TBH EGFR-AF [place]IAN >60 >=60 mL/min/1. 73m 2 TBH TBH EGFR-NON AF [place]ONG[place]IAN >60 >=60 mL/min/1. 73m 2 TBH BUN [...] External Data Provider CLINISYNC F inal Result CLINISYNC [facility] * (ABNORMAL) ALL CBC WITH AUTO DIFF (01/18/2025 8:07 AM EDT) TB WBC 12.5(H) 4.0 - 11.0 10 3/uL [...] Narrative CLINISYNC - 01/18/2025 8:12 AM EDT us Generic External Data Provider CLINISYNC F inal Result Performing Organization Address City/State/[facility] Co de Phone Number CLINISYNC TB documented in this encounter Visit Diagnoses Not on filedocumented in this encounter Care Teams Consumer Insight Manager Relationship Specialty Start Date End Date Destin Simeon MD [address] [place] [address] PCP - General Family Medicine 01/20/24 Destin Simeon MD [address] [place] [address] PCP - [facility] 08/30/24 documented as of this encounter
--- OUTSIDE RECORDS SUMMARY | 2025-01-22 01:23 | XMS_ITS | Encounter Summary ---
Author Organization [facility] Address [address] [place] [address] Care Team Providers Care Culinary Artist Name Role Phone Destin Simeon MD Primary Care Provider [phone] Destin Simeon MD Unavailable Encounter Details Date Type Department Care Team (Late st Contact Info) Description 01/11/2025 Clinisync Result Encounter [facility] External Department [...] week 02/04/2024 How often do you attend [facility] or sikhism services? More than 4 times per year 02/04/2024 Do you belong to any clubs o r organizations such as jainism groups, unions, fraternal or athletic groups, or [...] Office Visit [facility] [address] [place] [address] Destin Simeon MD [address] [place] [address] 09/11/2025 3:00 PM EST Office Visit [facility] [address] [place] [address] Blayne Rangel, DO [address] [place] [address] documented as of this encounter Procedures Procedure Name Priority Date/Time Associated Diagnosis Comments VITAMIN B12 Routine 01/11/2025 12:50 PM EDT RETICULOCYTE PCT AUTO Routine 01/11/2025 12:50 PM EDT MHPT DIFFERENTIAL Routine 01/11/2025 12: 50 PM EDT METRO IRON AND TIBC Routine 01/11/2025 1 2:50 PM EDT METRO BILIRUBIN, DIRECT Routine 01/11/2025 12:50 PM EDT HMHP HAPTOGLOBIN Routine 01/11/2025 12:5 0 PM EDT CCF FERRITIN Routine 01/11/2025 12:50 PM EDT CCF CMP (CMP) (FOR REMOTE [facility] USE) Routine 01/11/2025 12:50 PM EDT ALL SED RATE Routine 01/11/2025 12:50 PM EDT ALL MISCELLANEOUS TEST Routine 12:50 PM EDT ALL LDH Routine 01/11/2025 12:50 PM EDT ALL CBC WITH AUTO DIFF Routine 12:50 PM EDT ALL C REACTIVE PROTEIN Routine 12:50 PM EDT documented in this encounter Results * ALL MISCELLANEOUS TEST (01/11/2025 12:50 PM EDT) Pathologist [facility] MISCELLANEOUS TEST COMMENT . [facility] Comment: Test Ordered: [id number] Activity AYSZCG40 Activity 36.1 [L ] % Reference Range: >66.8 This test was developed and its performance characteristics determined by [employer]. It has not been cleared or approved by the Food and Drug Administration. Comment Comment Reference Range: . Severe deficiency of BNMZVK18 (less than 10% activity) is a relatively specific finding in patients with a clinical diagnosis of either hereditary or acquired thrombotic thrombocytopenic purpura (TTP). Normal to moderately reduced AKSXPY06 activity results do not exclude a diagnosis of TTP. Conditions that could have PEQRVR71 activity greater than 10% include hemolytic uremic syndrome (HUS), atypical hemolytic uremic syndrome (aHUS), and other thrombotic microangiopathies associated with hematopoietic stem cell and solid organ transplantation, liver disease, DIC, sepsis, , or effects of certain medications (eg, clopidogrel, cyclosporine, mitomycin C, quinine). Performed at: [address] [id number] Quill Skinner: Xavier Read MD, Phone: [phone] Performed at: [address] [id number] Quill Skinner: Nicolás Chan PhD, Phone: [phone] 01/11/2025 12:5 0 PM EDT 01/11/2025 12:59 PM EDT Narrative CLINISYNC - 01/14/2025 8:12 AM EDT [id number] Activity us Generic External Data Provider CLINISYNC F inal Result CLINISYALIDA [facility] * VITAMIN B12 (01/11/2025 12:50 PM EDT) Pathologist [facility] VITAMIN B12 642 232 - 1245 pg/mL [facility] Comment: Performed at: [address] [id number] Quill Skinner: Nicolás Chan PhD, Phone: [phone] 01/11/2025 12:5 0 PM EDT 01/11/2025 12:59 PM EDT Narrative CLINISYNC - 01/12/2025 4:08 AM EDT Generic External Data Provider LAB BLOOD ORDERAB LES Final Result Performing Organization Address [facility] Co de Phone Number [facility] * HMHP HAPTOGLOBIN (01/11/2025 12:50 PM EDT) HAPTOGLOBIN 61 42 - 296 mg/dL [facility] Comment: Performed at: [address] [id number] Quill Skinner: Nicolás Chan PhD, Phone: [phone] 01/11/2025 12:5 0 PM EDT 01/11/2025 12:59 PM EDT Narrative CLINISYNC - 01/12/2025 4:08 AM EDT Generic External Data Provider CLINISYNC F inal Result Performing Organization Address [facility] de Phone Number CLINARTHURSC TB * CCF FERRITIN (01/11/2025 12:50 PM EDT) FERRITIN 186.0 8.0 - 252.0 ng/mL [facility]H 01/11/2025 12:5 0 PM EDT 01/11/2025 12:59 PM EDT Narrative CLINISYNC - 01/11/2025 2:29 PM EDT Generic External Data Provider CLINISYNC F inal Result Performing Organization Address [facility] de Phone Number CLINARTHURSC TB * METRO IRON AND TIBC (01/11/2025 12:50 PM EDT) TBH IRON 87.0 50.0 - 170.0 ug/dL TBH TBH TOTAL IRON BINDING CAPACITY 295.0 250.0 - 450.0 ug/dL TBH TBH PERCENT IRON SATURATION 29.5 % TBH 01/11/2025 12:5 0 PM EDT 01/11/2025 12:59 PM EDT Narrative CLINISYNC - 01/11/2025 2:19 PM EDT Generic External Data Provider CLINISYNC F inal Result Performing Organization Address City/[facility] Co de Phone Number CLINISYNC TB * (ABNORMAL) MHPT DIFFERENTIAL (01/11/2025 12:50 PM [...] CLINISYNC F inal Result Performing Organization Address City/[facility]/ZIP Co de Phone Number CLINISYNC TB * ALL C REACTIVE PROTEIN (01/11/2025 12:50 PM EDT) C REACTIVE PROTEIN <0.50 <=0.50 mg/dL TBH 01/11/2025 12:5 0 PM EDT 01/11/2025 12:59 PM EDT Narrative CLINISYNC - 01/11/2025 1:35 PM EDT Generic External Data Provider CLINISYNC F inal Result Performing Organization Address City/[facility]/ZIP Co de Phone Number CLINISYNC TB * ALL LDH (01/11/2025 12:50 PM EDT) LACTATE DEHYDROGENASE 228 81 - 234 U/L TBH 01/11/2025 12:5 0 PM EDT 01/11/2025 12:59 PM EDT Narrative CLINISYNC - 01/11/2025 1:35 PM EDT Generic External Data Provider CLINISYNC F inal Result Performing Organization Address [facility] de Phone Number CLINISYNC TB * METRO BILIRUBIN, DIRECT (01/11/2025 12:50 PM EDT) BILIRUBIN DIRECT 0.1 0.0 - 0.2 mg/dL TBH 01/11/2025 12:5 0 PM EDT 01/11/2025 12:59 PM EDT Narrative CLINISYNC - 01/11/2025 1:35 PM EDT Generic External Data Provider CLINISYNC F inal Result Performing Organization Address [facility] Co de Phone Number CLINISYNC TBH * (ABNORMAL) CCF CMP (CMP) (FOR REMOTE [facility] USE) (01/11/2025 12:50 PM EDT) SODIUM 138 136 - 145 mmol/L TBH POTASSIUM 4.3 3.5 - 5.1 mmol/L TBH CHLORIDE 103 98 - 107 mmol/L TBH CARBON DIOXIDE 27.6 21.0 - 32.0 mmol/L TBH ANION GAP 11.7 TBH GLUCOSE 196(H) 74 - 106 mg/dL TBH BLOOD UREA NITROGEN 25.0(H) 7.0 - 18.0 mg/dL TBH CREATININE 1.21(H) 0.55 - 1.02 mg/dL TBH TBH EGFR-AF [place] 58(L) >=60 mL/min/1. 73m 2 TBH TBH EGFR-NON AF [place] 48(L) >=60 mL/min/1. 73m 2 TBH BUN CREATININE RATIO 20.7 TBH CALCIUM 8.9 8.5 - 10.1 mg/dL TBH BILIRUBIN TOTAL 0.3 0.2 - 1.0 mg/dL TBH ASPARTATE AMINO TRANSFERASE 20 15 - 37 U/L TBH ALANINE AMINOTRANSFERASE 66(H) 14 - 59 U/L TBH ALKALINE PHOSPHATASE 91 46 - 116 U/L TBH TOTAL PROTEIN 6.1(L) 6.4 - 8.2 g/dL TBH ALBUMIN LEVEL 3.1(L) 3.4 - 5.0 g/dL TBH GLOBULIN 3.0 g/dL TBH ALBUMIN GLOBULIN RATIO 1.0 TBH 01/11/2025 12:5 0 PM EDT 01/11/2025 12:59 PM EDT Narrative CLINISYNC - 01/11/2025 1:34 PM EDT Generic External Data Provider [facility]NC F [facility]al [facility] * ALL SED RATE (01/11/2025 12:50 PM EDT) [facility] SED RATE 11 <=20 mm/hr TB 01/11/2025 12:5 0 PM EDT 01/11/2025 12:59 PM EDT Narrative CLINISYNC - 01/11/2025 1:31 PM EDT Generic External Data Provider [facility]NC F inal [facility] * (ABNORMAL) RETICULOCYTE PCT AUTO (01/11/2025 12:50 PM EDT) RETICULOCYTE PCT AUTO 5.46(H) 0.60 - 3.10 % TBH 01/11/2025 12:5 0 PM EDT 01/11/2025 12:59 PM EDT Narrative CLINISYNC - 01/11/2025 1:21 PM EDT Generic External Data Provider LAB BLOOD ORDERAB LES Final Result Performing Organization Address City/[facility] Co de Phone Number CLINARTHURNC TB * (ABNORMAL) ALL CBC WITH AUTO DIFF (01/11/2025 12:50 PM EDT) TBH WBC 15.4(H) 4.0 - 11.0 10 3/uL TBH TBH RBC 3.50(L) 4.20 - 5.40 10 6/uL TBH TBH HGB 10.3(L) 12.0 - 16.0 g/dL TBH TBH HCT 32.9(L) 36.0 - 48.0 % TBH TBH MCV 94.0 81.0 - 99.0 fL TBH TBH MCH 29.4 26.7 - 34.0 pg TBH TBH MCHC 31.3 29.9 - 35.2 g/dL TBH TBH RDW 18.4(H) 11.0 - 15.0 % TBH TBH PLT 247 150 - 450 10 3/uL TBH TBH MPV 9.6 9.5 - 13.5 fL TBH 01/11/2025 12:5 0 PM EDT 01/11/2025 12:59 PM EDT Narrative CLINISYNC - 01/11/2025 1:42 PM EDT Generic External Data Provider CLINISYNC F inal Result Performing Organization Address City/[facility] Co de Phone Number [facility] documented in this encounter Visit Diagnoses Not on filedocumented in this encounter Care Teams Culinary Artist Relationship Specialty Start Date End Date Destin Simeon MD [address] [place] [phone] PCP - General Family Medicine 01/20/24 Destin Simeon MD [address] [place] [address] PCP - [facility] 08/30/24 documented as of this encounter
--- OUTSIDE RECORDS SUMMARY | 2025-01-22 01:23 | XMS_ITS | Encounter Summary ---
Author Organization [facility] Address [address] [place] [address] Care Team Providers Care Chocolate Packer Name Role Phone Destin Simeon MD Primary Care Provider [phone] Destin Simeon MD Unavailable Reason for Visit * Reason Comments Med Refill Encounter Details Date Type Department Care Team (Late st Contact Info) Description 11/27[facility]2024 [facility] [address] [place] [address] Destin Simeon MD [address] [place] [address] Dermatitis Social History Tobacco Use Types Packs/Day Years [...] often do you attend chur ch or hindu services? More than 4 times per year 02/04/2024 Do you belong to any clubs o r organizations such as moravian groups, unions, fraternal or athletic groups, or [...] encounter Miscellaneous Notes * Telephone Encounter - ANIRUDH TEIXEIRA - 11/27/2024 2:54 PM EDT MEDICATION SENT TO [facility] documented in this encounter Plan of Treatment Upcoming Encounters Date Type Department Care Team (Late st Contact Info) Description 02/02/2025 9:30 AM EDT Office Visit [facility] [address] [place] [address] Destin Simeon MD [address] [place] [address] 09/11/2025 3:00 PM EST Office Visit [facility] [address] [place] [phone] Blayne Rangel DO [address] [place] [address] documented as of this encounter Visit Diagnoses Diagnosis Dermatitis Contact dermatitis and other eczema, due to unspecified cause documented in this encounter Care Teams Chocolate Packer Relationship Specialty Start Date End Date Destin Simeon MD [address] [place] [address] PCP - General Family Medicine 01/20/24 Destin Simeon MD [address] [place] [address] PCP - [facility] 08/30/24 documented as of this encounter
--- OUTSIDE RECORDS SUMMARY | 2025-01-22 01:23 | XMS_ITS | Encounter Summary ---
Author Organization [facility] Address [address] [place] [address] Care Team Providers Care Oriental Rug Stretcher Name Role Phone Destin Simeon MD Primary Care Provider Destin Simeon MD Unavailable Encounter Details Date Type Department Care Team (Late st Contact Info) Description 03/09/2024 External Result Encounter [facility] [address] [place] [address] Destin Simeon MD [address] [place] [address] Social History Tobacco Use Types Packs/Day Years [...] often do you attend chur ch or congregational services? More than 4 times per year 02/04/2024 Do you belong to any clubs o r organizations such as religion groups, unions, fraternal or athletic groups, or [...] [facility] [address] [place] [address] Destin Simeon MD [address] [place] [address] 09/11/2025 3:00 PM EST Office Visit [facility] [address] [place] [address] Blayne Rangel, DO [address] [place], [place] [phone] documented as of this encounter Procedures Procedure Name Priority Date/Time Associated Diagnosis Comments BI MAMMOGRAM SCREENING TOMOSYNTHESIS BILATERAL 03/09/2024 12:23 PM EDT documented in this encounter Results * Bilateral screening mammogram with tomosynthesis (03/09/2024 12:23 PM EDT) Anatomical Region Laterality Modality Breast Bilateral Mammography 03/09/2024 12:2 3 PM EDT Narrative 03/09/2024 12:22 PM EDT THIS EXAM WAS PERFORMED AT [facility] EXAM: MAMM SCREENING BILATERAL W CAD, 03/09/2024 [...] MAMM 1 YR Procedure Note Radiology, Radiologist, - 03/09/2024 THIS EXAM WAS PERFORMED AT [facility] EXAM: MAMM SCREENING BILATERAL W CAD, 03/09/2024 [...] Simeon MD IMG BI PROCEDURES Final Result documented in this encounter Visit Diagnoses Not on filedocumented in this encounter Care Teams Oriental Rug Stretcher Relationship Specialty Start Date End Date Destin Simeon MD [address] [place] [address] PCP - General Family Medicine 01/20/24 Destin Simeon MD [address] [place] [address] PCP - [facility] 08/30/24 documented as of this encounter
--- OUTSIDE RECORDS SUMMARY | 2025-01-22 01:23 | XMS_ITS ---
Author Organization [facility] Address [address] [place] [address] Care Team Providers Care Manager Development Name Role Phone Destin Simeon MD Primary Care Provider [phone] Destin Simeon MD Unavailable 30 Day Monitoring Program Status:Enrolled (Active) Start date:01/17/2025 Enrollment date:01/17/2025 Enrollment reason:Identified from transitional care managment Case Team Name Relationship Phone Ami Mccormack COMMUNITY MIDWIFE(Responsible Staff) Social Wor ker [phone] Continued Care and Services Coordination
[2025-01-22 01:40] VITALS: O2SAT 100
--- NOTE | 2025-01-22 01:44 | ECG_ITS ---
[facility] Test Date: 2025-01-22 Pat Name: TEREZA DURAN Department: Room: - Gender: Female Turret Punch Operator: : [id number] Requested By: [id number] Order Number: [id number] Reading MD: JACOB LOBATO M.D. Measurements Intervals [place] Rate: 65 P: 43 DE: 116 QRS: 20 QRSD: 70 T: 270 QT: 372 QTc: 383 Interpretive Statements 1100 Sinus rhythm 2210 Short DE interval 4068 Nonspecific Twave abnormality 8102 Low QRS voltage in chest leads 9150 abnormal ECG No previous ECG available for comparison Electronically Signed On 01-22-2025 7:54:16 EDT by JACOB LOBATO M.D.
[2025-01-22 02:08] LABS: Basophils Percent Auto 0.1 % (0.2-2.0); Eosinophils Percent Auto 0.2 % (0.9-7.0); Hematocrit 38.5 % (36.0-48.0); Hemoglobin 12.2 g/dL (12.0-16.0); Immature Granulocytes Abs Auto 0.27 10^3/uL (0.00-0.03); Immature Granulocytes Pct Auto 2.2 % (0.0-0.5); Lymphocytes Absolute Auto 1.2 10^3/uL (1.2-3.8); Lymphocytes Percent Auto 9.7 % (20.5-60.0); Mean Corpuscular HGB Conc 31.7 g/dL (29.9-35.2); Mean Corpuscular Hemoglobin 29.7 pg (26.7-34.0); Mean Corpuscular Volume 93.7 fL (81.0-99.0); Mean Platelet Volume 10.1 fL (9.5-13.5); Monocytes Absolute Auto 0.8 10^3/uL (0.3-0.8); Monocytes Percent Auto 6.7 % (1.7-12.0); Neutrophils Absolute Auto 10.1 10^3/uL (1.4-6.5); Neutrophils Percent Auto 81.1 % (43.0-75.0); Platelet Count 186 10^3/uL (150-450); Red Blood Count 4.11 10^6/uL (4.20-5.40); Red Cell Distribution Width 17.7 % (11.0-15.0); White Blood Count 12.5 10^3/uL (4.0-11.0)
[2025-01-22 02:31] LABS: Anion Gap 12.8; BUN Creatinine Ratio 24.1; Calcium 9.2 mg/dL (8.5-10.1); Carbon Dioxide 28.7 mmol/L (21.0-32.0); Chloride 101 mmol/L (98-107); Estimated GFR (African America >60 (>=60 mL/min/1.73m^2); Estimated GFR (Non-African Ame >60 (>=60 mL/min/1.73m^2); Glucose 135 mg/dL (74-106); Potassium 4.5 mmol/L (3.5-5.1); Sodium 138 mmol/L (136-145); Troponin I High Sensitivity 15.2 pg/mL (4.0-51.3)
[2025-01-22] MEDS: LORAZEPAM 2 MG/ML VIAL 1 MG IV (02:40)
[2025-01-22] MEDS: ALBUTEROL SULFATE 2.5 MG/3 ML VIAL NEB IH (02:46)
[2025-01-22 02:48] VITALS: PULSE 66; O2SAT 99
--- NOTE | 2025-01-22 06:02 | ED.GENADUL1 ---
HPI HPI - General Adult General Chief complaint: Altered Mental Status Stated complaint: SOB Time Seen by Provider: 01/22/25 01:17 Source: patient Mode of arrival: walk-in Limitations: no limitations History of Present Illness HPI narrative: 49-year-old female to the emergency department chief complaint of feeling like her throat is closing. Patient reports she was having a normal evening when she began to experience a sensation like her throat was closing. She reports that she felt panicked. She feels like she is short of breath and cannot get oxygen. She denies any chest pain. No rash. No new exposures. Daughter reports that her voice is not changed. Daughter reports recent complex medical history with an admission and transfer from [facility] to [facility] for suspected stroke. Related Data Home Medications ?Medication ?Instructions ?Recorded ?Confirmed apixaban 5 mg tablet (Eliquis) mg 01/22/25 aspirin 81 mg tablet,delayed mg 01/22/25 release atorvastatin 40 mg tablet mg 01/22/25 bupropion HCl 150 mg 24 hr tablet, mg PO 01/22/25 extended release cyanocobalamin (vitamin B-12) mcg 01/22/25 1,000 mcg tablet lorazepam 0.5 mg tablet mg 01/22/25 nystatin 100,000 unit/gram topical topical 01/22/25 powder omeprazole 40 mg capsule,delayed mg 01/22/25 release pantoprazole 40 mg tablet,delayed mg PO 01/22/25 release prednisone 20 mg tablet mg 01/22/25 sennosides 8.6 mg-docusate sodium PO 01/22/25 50 mg tablet (Senexon-S) Allergies Allergy/AdvReac Type Severity Reaction Status Date / Time metoclopramide (From Reglan) Allergy Severe Difficulty Verified 01/22/25 01:24 Breathing Sulfa (Sulfonamide Allergy Severe Difficulty Verified 01/22/25 01:24 Antibiotics) Breathing naproxen AdvReac Severe Unknown Verified 01/22/25 01:24 Opioid HPI Opioid Management Most Recent Opioid Data: Last OCT Pain Assessment 01/18/25, 08:12 Review of Systems ROS Status of ROS 10 or more systems reviewed and unremarkable except as noted in history and below PFSH PFSH Social History Little interest or pleasure in doing things: not at all Feeling down, depressed, or hopeless: not at all Exam Narrative Exam Narrative: VITALS: I have reviewed the triage vital signs. GENERAL: Anxious adult female in no distress NEURO: Alert and oriented. Moves all extremities. Face is symmetric and expressive. EYES: PERRL. No scleral icterus or conjunctival injection. No discharge. HENT: Normocephalic, atraumatic. Hearing is grossly intact. Nares grossly patent and without discharge. Mucous membranes moist. Uvula midline. No unilateral peritonsillar swelling. No pooling of secretions. No dysphonia. NECK: No JVD. Patient moves neck without restriction. No mass appreciated. Tenderness. No palpable lymph nodes. CARDIO: Rhythm regular. Normal rate. No murmur, rub, or gallop. Pulses equal bilaterally in the upper and lower extremity. No lower extremity edema. PULM: Lungs clear to auscultation in all [place]. No wheezes, rales, or rhonchi. No conversational dyspnea. No splinting, stridor, or accessory muscle use. GI/: Abdomen is soft and non-tender. Normoactive bowel sounds. EXTREMITIES: Symmetric muscle bulk. No joint swelling. No clubbing, cyanosis, or deformity. SKIN: Warm and dry. Normal turgor. No rash or lesions appreciated. PSYCH: Anxious, odd affect Constitutional Vital Signs, click to edit/add: Last Vital Signs Temp 97.3 F L 01/22/25 01:19 Pulse 66 01/22/25 02:48 Resp 18 01/22/25 02:48 BP 135/98 H 01/22/25 01:19 Pulse Ox 99 01/22/25 02:48 O2 Del Method Room Air 01/22/25 02:48 Course Vital Signs Vital signs: Vital Signs Temperature 97.3 F L 01/22/25 01:19 Pulse Rate 61 01/22/25 01:19 Respiratory Rate 16 01/22/25 01:19 Blood Pressure 135/98 H 01/22/25 01:19 Pulse Oximetry 100 01/22/25 01:19 Oxygen Delivery Method Room Air 01/22/25 01:19 Temperature 97.3 F L 01/22/25 01:19 Pulse Rate 66 01/22/25 02:48 Respiratory Rate 18 01/22/25 02:48 Blood Pressure 135/98 H 01/22/25 01:19 Pulse Oximetry 99 01/22/25 02:48 Oxygen Delivery Method Room Air 01/22/25 02:48 Medical Decision Making [facility] Narrative Medical decision making narrative: 49-year-old female to the emergency department chief complaint of sensation that her throat is closing. Vital stable, the patient is afebrile. She is in no respiratory distress. No signs of upper airway compromise. Patient is very anxious. Will obtain a CT scan neck, basic labs, chest x-ray. Patient had tach when she was taken to CT scanner. She was given 1 mg of IV Ativan. She improved much after this. Lab work is unremarkable. Troponin and BNP are normal. EKG is without any evidence of ischemia, arrhythmia or abnormal QTc. CT scan of the neck is without any acute findings. I did review her discharge summary from [facility] on 01/16. There was no evidence of stroke in her workup. Her symptoms were noted to possibly be depression related. Patient had no events during her ED stay. Reported she felt improved. Care signed out to Dr. Moon with results of imaging pending. Working diagnosis: Anxiety Globus sensation Medical Records Medical records reviewed: Yes I reviewed the patient's medical records Lab Data Lab results reviewed: Yes I reviewed the patient's lab results Labs: Lab Results 01/22/25 Range/Units 02:00 WBC 12.5 H (4.0-11.0) 10^3/uL RBC 4.11 L (4.20-5.40) 10^6/uL Hgb 12.2 (12.0-16.0) g/dL Hct 38.5 (36.0-48.0) % MCV 93.7 (81.0-99.0) fL MCH 29.7 (26.7-34.0) pg MCHC 31.7 (29.9-35.2) g/dL RDW 17.7 H (11.0-15.0) % Plt Count 186 (150-450) 10^3/uL MPV 10.1 (9.5-13.5) fL Neut % (Auto) 81.1 H (43.0-75.0) % Lymph % (Auto) 9.7 L (20.5-60.0) % [place] % (Auto) 6.7 (1.7-12.0) % Eos % (Auto) 0.2 L (0.9-7.0) % Baso % (Auto) 0.1 L (0.2-2.0) % Neut # (Auto) 10.1 H (1.4-6.5) 10^3/uL Lymph # (Auto) 1.2 (1.2-3.8) 10^3/uL [place] # (Auto) 0.8 (0.3-0.8) 10^3/uL Eos # (Auto) 0.0 (0.0-0.7) 10^3/uL Baso # (Auto) 0.0 (0.0-0.1) 10^3/uL Abs Immat Gran (auto) 0.27 H (0.00-0.03) 10^3/uL Imm/Tot Granulo (auto) 2.2 H (0.0-0.5) % Sodium 138 (136-145) mmol/L Potassium 4.5 (3.5-5.1) mmol/L Chloride 101 (98-107) mmol/L Carbon Dioxide 28.7 (21.0-32.0) mmol/L Anion Gap 12.8 BUN 21.0 H (7.0-18.0) mg/dL Creatinine 0.87 (0.55-1.02) mg/dL Est GFR ( Amer) >60 (>=60 mL/min/1.73m^2) Est GFR (Non-Af Amer) >60 (>=60 mL/min/1.73m^2) BUN/Creatinine Ratio 24.1 Glucose 135 H (74-106) mg/dL Calcium 9.2 (8.5-10.1) mg/dL Troponin I High Sens 15.2 (4.0-51.3) pg/mL NT-Pro-B Natriuret Pep 71.0 (<=450.0) pg/mL Imaging Data CT neck: Attestation: I have reviewed the pertinent imaging results. Radiologist's impression: See separate PACS document ECG Data Attestation: I personally reviewed and interpreted this ECG as follows: (Normal sinus rhythm at a rate of 65. No STEMI. Normal QTc at 383.) Discharge Plan Discharge Patient Disposition: Still a Patient
--- NOTE | 2025-01-22 09:58 | ED.GENADUL1 ---
HPI HPI - General Adult General Chief complaint: Altered Mental Status Stated complaint: SOB Time Seen by Provider: 01/22/25 01:17 Source: patient Mode of arrival: walk-in Limitations: no limitations History of Present Illness HPI narrative: 49-year-old female presents to the emergency department was initially seen by Dr. Streeter and signed out to me after discussing the case with him thoroughly. Please see his full history and physical exam. Related Data Home Medications ?Medication ?Instructions ?Recorded ?Confirmed apixaban 5 mg tablet (Eliquis) 5 mg PO Q12H 01/22/25 01/22/25 aspirin 81 mg tablet,delayed 81 mg PO DAILY 01/22/25 01/22/25 release atorvastatin 40 mg tablet 40 mg PO .QHS 01/22/25 01/22/25 bupropion HCl 150 mg 24 hr tablet, 150 mg PO DAILY 01/22/25 01/22/25 extended release cyanocobalamin (vitamin B-12) 1,000 mcg PO DAILY 01/22/25 01/22/25 1,000 mcg tablet lorazepam 0.5 mg tablet 0.5 mg PO Q12H PRN anxiety 01/22/25 01/22/25 nystatin 100,000 unit/gram topical 1 applic topical BID 01/22/25 01/22/25 powder pantoprazole 40 mg tablet,delayed 40 mg PO DAILY 01/22/25 01/22/25 release sennosides 8.6 mg-docusate sodium 1 tab-cap PO BID PRN constipation 01/22/25 01/22/25 50 mg tablet (Senexon-S) Allergies Allergy/AdvReac Type Severity Reaction Status Date / Time metoclopramide (From Reglan) Allergy Severe Difficulty Verified 01/22/25 01:24 Breathing Sulfa (Sulfonamide Allergy Severe Difficulty Verified 01/22/25 01:24 Antibiotics) Breathing naproxen AdvReac Severe Unknown Verified 01/22/25 01:24 Opioid HPI Opioid Management Most Recent Opioid Data: Last MAR Pain Assessment 01/18/25, 08:12 PFSH PFSH Social History Little interest or pleasure in doing things: not at all Feeling down, depressed, or hopeless: not at all Exam Constitutional Vital Signs, click to edit/add: Last Vital Signs Temp 97.3 F L 01/22/25 01:19 Pulse 66 01/22/25 02:48 Resp 18 01/22/25 02:48 BP 135/98 H 01/22/25 01:19 Pulse Ox 99 01/22/25 02:48 O2 Del Method Room Air 01/22/25 02:48 Course Vital Signs Vital signs: Vital Signs Temperature 97.3 F L 01/22/25 01:19 Pulse Rate 61 01/22/25 01:19 Respiratory Rate 16 01/22/25 01:19 Blood Pressure 135/98 H 01/22/25 01:19 Pulse Oximetry 100 01/22/25 01:19 Oxygen Delivery Method Room Air 01/22/25 01:19 Temperature 97.3 F L 01/22/25 01:19 Pulse Rate 66 01/22/25 02:48 Respiratory Rate 18 01/22/25 02:48 Blood Pressure 135/98 H 01/22/25 01:19 Pulse Oximetry 99 01/22/25 02:48 Oxygen Delivery Method Room Air 01/22/25 02:48 Medical Decision Making MDM Narrative Medical decision making narrative: The patient was initially seen by Dr. Streeter. CT of the neck was read as negative by the radiologist. We were awaiting the radiologist reading on her chest x-ray that was performed at 2:39 AM. At 10 AM the patient requested to be discharged and we are still waiting for the x-ray report. She was discharged. Differential Diagnosis Differential Diagnosis: Allergic reaction, pharyngeal mass Lab Data Lab results reviewed: Yes I reviewed the patient's lab results Labs: Lab Results 01/22/25 Range/Units 02:00 WBC 12.5 H (4.0-11.0) 10^3/uL RBC 4.11 L (4.20-5.40) 10^6/uL Hgb 12.2 (12.0-16.0) g/dL Hct 38.5 (36.0-48.0) % MCV 93.7 (81.0-99.0) fL MCH 29.7 (26.7-34.0) pg MCHC 31.7 (29.9-35.2) g/dL RDW 17.7 H (11.0-15.0) % Plt Count 186 (150-450) 10^3/uL MPV 10.1 (9.5-13.5) fL Neut % (Auto) 81.1 H (43.0-75.0) % Lymph % (Auto) 9.7 L (20.5-60.0) % [place] % (Auto) 6.7 (1.7-12.0) % Eos % (Auto) 0.2 L (0.9-7.0) % Baso % (Auto) 0.1 L (0.2-2.0) % Neut # (Auto) 10.1 H (1.4-6.5) 10^3/uL Lymph # (Auto) 1.2 (1.2-3.8) 10^3/uL [place] # (Auto) 0.8 (0.3-0.8) 10^3/uL Eos # (Auto) 0.0 (0.0-0.7) 10^3/uL Baso # (Auto) 0.0 (0.0-0.1) 10^3/uL Abs Immat Gran (auto) 0.27 H (0.00-0.03) 10^3/uL Imm/Tot Granulo (auto) 2.2 H (0.0-0.5) % Sodium 138 (136-145) mmol/L Potassium 4.5 (3.5-5.1) mmol/L Chloride 101 (98-107) mmol/L Carbon Dioxide 28.7 (21.0-32.0) mmol/L Anion Gap 12.8 BUN 21.0 H (7.0-18.0) mg/dL Creatinine 0.87 (0.55-1.02) mg/dL Est GFR ( Amer) >60 (>=60 mL/min/1.73m^2) Est GFR (Non-Af Amer) >60 (>=60 mL/min/1.73m^2) BUN/Creatinine Ratio 24.1 Glucose 135 H (74-106) mg/dL Calcium 9.2 (8.5-10.1) mg/dL Troponin I High Sens 15.2 (4.0-51.3) pg/mL NT-Pro-B Natriuret Pep 71.0 (<=450.0) pg/mL Imaging Data CT neck: Radiologist's impression: No acute abnormality in the neck Discharge Plan Discharge Chief Complaint: Altered Mental Status Clinical Impression: Dyspnea Patient Disposition: Home, Self-Care Time of Disposition Decision: 09:57 Condition: Good Mode of Transportation: Private Vehicle Prescriptions / Home Meds: No Action atorvastatin 40 mg tablet 40 mg PO .QHS sennosides-docusate sodium [Senexon-S] 8.6-50 mg tablet 1 tab-cap PO BID PRN (Reason: constipation) cyanocobalamin (vitamin B-12) 1,000 mcg tablet 1,000 mcg PO DAILY aspirin 81 mg tablet,delayed release (DR/EC) 81 mg PO DAILY lorazepam 0.5 mg tablet 0.5 mg PO Q12H PRN (Reason: anxiety) pantoprazole 40 mg tablet,delayed release (DR/EC) 40 mg PO DAILY nystatin 100,000 unit/gram powder 1 applic TOPICAL BID bupropion HCl 150 mg tablet extended release 24 hr 150 mg PO DAILY Eliquis 5 mg tablet 5 mg PO Q12H Print Language: Irish Instructions: Dyspnea (ED) Referrals: Destin Simeon MD [Primary Care Provider, Family Practice] - 1 week
== END 2025-01-22 10:16 | disposition home or self-care (01) ==
PROVIDERS: Student in an Organized Health Care Education/Training Program; Emergency Provider Emergency Medicine; PCP Family Medicine
DX: R06.00 Dyspnea, unspecified (principal)
CPT/HCPCS: 36415; 70491; 71045; 80048; 83880; 84484; 85025; 93005; 94640; 96374; 99285; J2060; Q9967

== ENCOUNTER 2025-01-25 07:26 | Outpatient (RCR) | payer OTHER, SELFPAY ==
[2025-01-11] MEDS: 0.9 % SODIUM CHLORIDE 250 ML 10 ML IV (13:00)
[2025-01-11 13:02] VITALS: BP 108/71; PULSE 86; TEMP 36.6; O2SAT 95
[2025-01-11 13:11] LABS: Hematocrit 32.9 % (36.0-48.0); Hemoglobin 10.3 g/dL (12.0-16.0); Mean Corpuscular HGB Conc 31.3 g/dL (29.9-35.2); Mean Corpuscular Hemoglobin 29.4 pg (26.7-34.0); Mean Platelet Volume 9.6 fL (9.5-13.5); Platelet Count 247 10^3/uL (150-450); Red Cell Distribution Width 18.4 % (11.0-15.0); White Blood Count 15.4 10^3/uL (4.0-11.0)
[2025-01-11 13:14] LABS: Reticulocyte Pct Auto 5.46 % (0.60-3.10)
[2025-01-11 13:25] LABS: Alanine Aminotransferase 66 U/L (14-59); Albumin Level 3.1 g/dL (3.4-5.0); Alkaline Phosphatase 91 U/L (46-116); Anion Gap 11.7; Aspartate Amino Transferase 20 U/L (15-37); BUN Creatinine Ratio 20.7; Bilirubin Total 0.3 mg/dL (0.2-1.0); Calcium 8.9 mg/dL (8.5-10.1); Carbon Dioxide 27.6 mmol/L (21.0-32.0); Chloride 103 mmol/L (98-107); Estimated GFR (African America 58 (>=60 mL/min/1.73m^2); Estimated GFR (Non-African Ame 48 (>=60 mL/min/1.73m^2); Glucose 196 mg/dL (74-106); Potassium 4.3 mmol/L (3.5-5.1); Sodium 138 mmol/L (136-145); Total Protein 6.1 g/dL (6.4-8.2)
[2025-01-11 13:26] LABS: Bilirubin Direct 0.1 mg/dL (0.0-0.2); Lactate Dehydrogenase 228 U/L (81-234)
[2025-01-11 13:31] LABS: Erythrocyte Sedimentation Rate 11 mm/hr (<=20)
[2025-01-11 13:35] LABS: C Reactive Protein <0.50 mg/dL (<=0.50)
[2025-01-11 13:41] LABS: Band Neutrophils Absolute 0.2 10^3/uL (0.0-0.3); Lymphocytes Absolute Manual 1.23 10^3/uL (1.20-3.80); Monocytes Absolute Manual 0.46 10^3/uL (0.30-0.80); Segmented Neut Absolute Manual 13.55 10^3/uL (1.4-6.5)
[2025-01-11 13:42] LABS: Anisocytosis 1+; Polychromasia 1+
[2025-01-11] MEDS: ACETAMINOPHEN 500 MG TABLET 1000 MG PO (13:48)
[2025-01-11] MEDS: SODIUM CHLORIDE 0.9% IV ×3 (13:48→14:34)
[2025-01-11] MEDS: DIPHENHYDRAMINE HCL IV (13:48)
--- NOTE | 2025-01-11 14:07 | PC.NURSE ---
1345 pre meds given, eats 100% of meal. offers no complaints
[2025-01-11] MEDS: METHYLPREDNISOLONE SOD SUCC IV (14:13)
[2025-01-11 14:14] LABS: Percent Iron Saturation 29.5 %
[2025-01-11] MEDS: RITUXIMAB IV (14:34)
--- NOTE | 2025-01-11 14:45 | PC.NURSE ---
Rituxan initiated as ordered. reclined in chair. eyes shut. mother and Aunt at bedside
[2025-01-11 14:51] VITALS: BP 113/70; PULSE 76; TEMP 36.2; O2SAT 93
--- NOTE | 2025-01-11 15:28 | PC.NURSE ---
1515 titrated up to 44 mg/ hr or 100mg/hr. tolerating well. iv site clear reclined in recliner. resting eyes closed
[2025-01-11 15:29] VITALS: BP 112/75; PULSE 95; TEMP 36.4; O2SAT 95
[2025-01-11] MEDS: DIPHENHYDRAMINE HCL 25 MG CAPSULE PO (15:45)
--- NOTE | 2025-01-11 15:45 | PC.NURSE ---
1535 complains of face itching, sl diaphoretic.no other itching. lungs clear, no wheezing denies tongue itching or swelling. stopped rituxan. NS restarted at kvo 1540 Dr. Zhang notified. Orders recieved, 1545 Medicated with benadryl 25 IVP.
[2025-01-11 16:10] VITALS: BP 118/85; PULSE 89; TEMP 36.3; O2SAT 95
--- NOTE | 2025-01-11 16:12 | PC.NURSE ---
denies any itching. no complaints offered. resumed rituxan at 50 mg/hr.
--- NOTE | 2025-01-11 16:38 | PC.NURSE ---
1630 no s/s of reactionn increased to 100mg/hr (44ml/hr)
--- NOTE | 2025-01-11 17:04 | PC.NURSE ---
1645 tolerating treatment well, rate increased to 66 ml hr. resting quietly at this time
--- NOTE | 2025-01-11 17:11 | PC.NURSE ---
1700 tolerating infusion, increased rate to 88 ml/hr or 200mg/hr.
[2025-01-11 17:52] VITALS: BP 123/81; PULSE 78; TEMP 36.6; O2SAT 96
[2025-01-11 18:49] VITALS: BP 121/76; PULSE 80; TEMP 36.6; O2SAT 98
--- NOTE | 2025-01-11 18:51 | PC.NURSE ---
tolerated infusion with no further s/s of reaction since 2nd dose of benadryl. IV dc'd catheter intact. Released ambulatory with walker accompanied by family
[2025-01-12 04:08] LABS: Haptoglobin 61 mg/dL (42-296); Vitamin B12 642 pg/mL (232-1245)
[2025-01-18 07:53] VITALS: BP 121/79; PULSE 84; TEMP 36.2; O2SAT 97
[2025-01-18 08:12] LABS: Basophils Percent Auto 0.2 % (0.2-2.0); Eosinophils Absolute Auto 0.2 10^3/uL (0.0-0.7); Eosinophils Percent Auto 1.2 % (0.9-7.0); Hemoglobin 10.7 g/dL (12.0-16.0); Immature Granulocytes Abs Auto 0.33 10^3/uL (0.00-0.03); Immature Granulocytes Pct Auto 2.6 % (0.0-0.5); Lymphocytes Absolute Auto 2.7 10^3/uL (1.2-3.8); Lymphocytes Percent Auto 21.6 % (20.5-60.0); Mean Corpuscular HGB Conc 31.5 g/dL (29.9-35.2); Mean Corpuscular Hemoglobin 30.1 pg (26.7-34.0); Mean Corpuscular Volume 95.8 fL (81.0-99.0); Mean Platelet Volume 9.2 fL (9.5-13.5); Monocytes Absolute Auto 0.6 10^3/uL (0.3-0.8); Monocytes Percent Auto 4.9 % (1.7-12.0); Neutrophils Absolute Auto 8.7 10^3/uL (1.4-6.5); Neutrophils Percent Auto 69.5 % (43.0-75.0); Platelet Count 159 10^3/uL (150-450); Red Blood Count 3.55 10^6/uL (4.20-5.40); Red Cell Distribution Width 18.6 % (11.0-15.0); White Blood Count 12.5 10^3/uL (4.0-11.0)
[2025-01-18] MEDS: ACETAMINOPHEN 500 MG TABLET 1000 MG PO (08:12)
[2025-01-18] MEDS: 0.9 % SODIUM CHLORIDE 250 ML 10 ML IV (08:13)
[2025-01-18] MEDS: SODIUM CHLORIDE 0.9% IV ×3 (08:20→09:12)
[2025-01-18] MEDS: DIPHENHYDRAMINE HCL IV (08:20)
--- NOTE | 2025-01-18 08:25 | PC.NURSE ---
0820 states her foot is itching, I explained to her I had only administered tylenol, no hives or redddness noted on feet. iv benadryl initiated
[2025-01-18 08:30] LABS: Alanine Aminotransferase 40 U/L (14-59); Albumin Globulin Ratio 1.1; Alkaline Phosphatase 81 U/L (46-116); Anion Gap 14.3; Aspartate Amino Transferase 12 U/L (15-37); BUN Creatinine Ratio 17.8; Bilirubin Total 0.4 mg/dL (0.2-1.0); Carbon Dioxide 27.9 mmol/L (21.0-32.0); Chloride 103 mmol/L (98-107); Estimated GFR (African America >60 (>=60 mL/min/1.73m^2); Estimated GFR (Non-African Ame >60 (>=60 mL/min/1.73m^2); Globulin 2.8 g/dL; Glucose 163 mg/dL (74-106); Potassium 4.2 mmol/L (3.5-5.1); Sodium 141 mmol/L (136-145); Total Protein 5.8 g/dL (6.4-8.2)
[2025-01-18] MEDS: METHYLPREDNISOLONE SOD SUCC IV (08:46)
[2025-01-18] MEDS: ONDANSETRON PF 4 MG/2 ML VIAL IV (09:11)
--- NOTE | 2025-01-18 09:11 | PC.NURSE ---
complains of nausea, medicated with zofran 4 mg ivp. Ambulated to bathroom, tolerated well.
[2025-01-18] MEDS: RITUXIMAB IV (09:12)
--- NOTE | 2025-01-18 09:25 | PC.NURSE ---
iv rituxan initiated at 50 mg/hr. patient instructed on s/s of reaction verbalized understanding. mother at bedside
--- NOTE | 2025-01-18 09:43 | PC.NURSE ---
meal ordered. rest quietly eyes shut respirations with ease. iv site clean dry and intact
[2025-01-18] MEDS: DIPHENHYDRAMINE HCL 50 MG/ML VIAL 25 MG IVP (10:15)
--- NOTE | 2025-01-18 10:31 | PC.NURSE ---
1015 complains of abdomen and chest itching, stopped rituxan. no reddness or hives noted. no tongue itching, lungs clear etc. Medicated with benadryl 25 mg IV.
--- NOTE | 2025-01-18 10:41 | PC.NURSE ---
waited 30 mins after iv benadryl, no further itching or s/s of reaction. IV rituxan restarted at 5 mg per hr and titrated as ordered
[2025-01-18 10:45] VITALS: BP 123/74; PULSE 74; TEMP 36.3; O2SAT 95
--- NOTE | 2025-01-18 10:46 | PC.NURSE ---
tolerating infusion with no further s/s of reaction. Titrated as ordered
--- NOTE | 2025-01-18 11:31 | PC.NURSE ---
Tolerating infusion without any s/s of reaction.
--- NOTE | 2025-01-18 12:03 | PC.NURSE ---
ambulates to bathroom, voids returns to chair.
[2025-01-18 12:55] VITALS: BP 115/77; PULSE 71; TEMP 36.1; O2SAT 95
--- NOTE | 2025-01-18 12:56 | PC.NURSE ---
awake, alert oriented no s/s of reaction. Mom at chairside. IV site clear, infusing well.
[2025-01-18 13:25] VITALS: BP 113/73; PULSE 71; TEMP 36.3; O2SAT 96
[2025-01-25 07:50] VITALS: BP 119/80; PULSE 82; TEMP 36.6; O2SAT 98
[2025-01-25] MEDS: ACETAMINOPHEN 500 MG TABLET 1000 MG PO (08:12)
[2025-01-25] MEDS: METHYLPREDNISOLONE SOD SUCC IV (08:14)
[2025-01-25] MEDS: SODIUM CHLORIDE 0.9% IV ×3 (08:14→09:00)
[2025-01-25] MEDS: 0.9 % SODIUM CHLORIDE 250 ML 10 ML IV (08:17)
[2025-01-25] MEDS: DIPHENHYDRAMINE HCL IV (08:39)
[2025-01-25] MEDS: RITUXIMAB IV (09:00)
--- NOTE | 2025-01-25 09:06 | PC.NURSE ---
0900: Pre-meds completed, Rituxan initiated as ordered. Pt. resting quietly with eyes closed. Resps. even and non-labored. Mom remains at chair side.
--- NOTE | 2025-01-25 09:39 | PC.NURSE ---
0930: IV Rituxan infusion titrated to 100mg/hr at this time. Pt. cont. sleeping without s&s of distress. IV site without s&s of infiltration.
--- NOTE | 2025-01-25 10:21 | PC.NURSE ---
1005: Rituxan increased to 150mg/hr. Pt. cont. sleeping without s&s of distress. IV remains without s&s of infiltration.
--- NOTE | 2025-01-25 11:51 | PC.NURSE ---
1150: Pt. awake watching TV. Denies c/o. Lunch tray ordered.
--- NOTE | 2025-01-25 12:33 | PC.NURSE ---
1220: Pt. tolerating infusion without s&s of adverse reaction. Medication titrated per protocol. Assisted up to bathroom to void.
[2025-01-25 12:50] VITALS: BP 134/80; PULSE 72; TEMP 36.6; O2SAT 97
== END 2025-01-27 23:59 | disposition home or self-care (01) ==
LOC: HEMC 07:26
PROVIDERS: PCP Family Medicine; Visit Provider Internal Medicine Hematology & Oncology
DX: Z51.12 Encounter for antineoplastic immunotherapy (principal); M31.19 Other thrombotic microangiopathy; R22.43 Localized swelling, mass and lump, lower limb, bilateral; Z79.01 Long term (current) use of anticoagulants; Z79.82 Long term (current) use of aspirin; Z86.2 Personal history of diseases of the blood and blood-forming organs and certain disorders involving the immune mechanism; D50.9 Iron deficiency anemia, unspecified; G40.909 Epilepsy, unspecified, not intractable, without status epilepticus; Z86.73 Personal history of transient ischemic attack (TIA), and cerebral infarction without residual deficits; I82.411 Acute embolism and thrombosis of right femoral vein
CPT/HCPCS: 36415; 80053; 82248; 82607; 82728; 83010; 83540; 83550; 83615; 85007; 85025; 85027; 85045; 85397; 85652; 86140; 96367; 96375; 96376; 96413; 96415; G0463; J1200; J2405; J2919; J9312

== ENCOUNTER 2025-01-27 13:00 | Emergency (ER) | payer OTHER, SELFPAY ==
[2025-01-27] VITALS (7 sets, daily range): BP systolic 103–113; BP diastolic 77–83; PULSE 67–83; TEMP 36.8; O2SAT 95–100; BMI 41.2
--- NOTE | 2025-01-27 13:09 | ECG_ITS ---
The [facility] Test Date: 2025-01-27 Pat Name: TEREZA DURAN Department: Room: - Gender: Female Health And Wellness Coach: : 1975 Requested By: [id number] Order Number: [id number] Reading MD: JACOB LOBATO M.D. Measurements Intervals [place] Rate: 71 P: 53 [place]: 124 QRS: 67 QRSD: 76 T: -8 QT: 342 QTc: 364 Interpretive Statements 1100 Sinus rhythm 1470 with occasional supraventricular premature complexes 4068 Nonspecific [place] abnormality 8102 Low QRS voltage in chest leads 9140 abnormal rhythm ECG Compared to ECG 01/22/2025 01:54:04 Short [place] interval no longer present Electronically Signed On 01-28-2025 7:13:21 EDT by JACOB LOBATO M.D.
--- NOTE | 2025-01-27 13:09 | XR_ITS ---
The [address] [address] Patient Name: TEREZA DURAN MRN: [id number] date: 1975 Sex: F Assigned Patient Location: ER Current Patient Location: ER Accession/Order Number: [id number] Exam Date: 01/27/2025 13:54 Report Date: 01/27/2025 13:58 At the request of: MENDOZA COOPER MD Procedure: XR chest 1V Plain film chest Single view HISTORY: Chest pain COMPARISON: 01/22/2025 FINDINGS: SUPPORT DEVICES: None POSTSURGICAL CHANGES: None HEART: Within normal limits PULMONARY ODESSA: Within normal limits MEDIASTINUM: Unremarkable LUNGS AND PLEURA: No acute lung process, pleural effusion or pneumothorax identified. BONY STRUCTURES: Intact ADDITIONAL FINDINGS None XR/XR chest 1V IMPRESSION: No acute process. Impression dictated by: Marlon Valverde M.D. 01/27/2025 1:58 PM Dictation Location: [place] [address] Electronically authenticated by: [id number] Y Date: 01/27/2025 13:58
--- OUTSIDE RECORDS SUMMARY | 2025-01-27 13:09 | XMS_ITS | CCD ---
Author Organization [facility] Care Team Providers Care Head Of Mathematics Name Role Phone COURTNEY CANAS Attending Unavailable DESTIN HUBBARD Referring Unavailable STEVIE, DESTIN Primary Care Unavailable Stevie KLINE, Destin Primary Care Provider [phone] DESTIN HUBBARD Attending Unavailable STEVIE, DESTIN Attending Unavailable STEVIE, DESTIN Attending Unavailable DESTIN HUBBARD Attending Unavailable LUCRECIAEREFito, DESTIN Attending Unavailable NADEREFito, DESTIN Attending Unavailable BLAYNE RANGEL Attending Unavailable Destin Hubbard MD Primary Care Provider [phone] Destin Hubbard MD Unavailable Destin Hubbard MD Primary Care Provider PROVIDER, UNKNOWN Attending Unavailable PROVIDER, UNKNOWN Admitting Unavailable Destin Hubbard MD Primary Care Provider [phone] DESTIN HUBBARD Primary Care Unavailable ALONA JOSHUA Attending Unavailable DESTIN HUBBARD Primary Care Unavailable [facility], [facility] Consulting MORIS Grimaldo Admitting Unavailable MORIS RICE Attending Unavailable VANESSA BLANCHARD Referring Unavailable DESTIN HUBBARD Primary Care Unavailable DESTIN HUBBARD Primary Care Unavailable DESTIN HUBBARD Referring Unavailable STEVIE, DESTIN Primary Care Unavailable DESTIN HUBBARD Referring Unavailable DESTIN HUBBARD Primary Care Unavailable GILBERTO PEOPLES Admitting Unavailable GILBERTO PEOPLES Attending Unavailable DESTIN HUBBARD Primary Care Unavailable DESTIN HUBBARD Referring Unavailable STEVIE, DESTIN Primary Care Unavailable STEVIE, DESTIN Referring Unavailable STEVIE, DESTIN Primary Care Unavailable MELISSA GUPTA Attending Unavailable DESTIN HUBBARD Primary Care Unavailable GILBERTO PEOPLES Attending Unavailable GILBERTO PEOPLES Referring Unavailable DESTIN HUBBARD Primary Care Unavailable PATO VILLATORO A Admitting Unavailable KAITY VILLATOROUHAMMAD A Attending Unavailable ALONA JOSHUA Referring Unavailable DESTIN HUBBARD Primary Care Unavailable TU CHRISTIANSEN Consulting Unavailable EDUARDO ALLAN Consulting Unavailable RAFAELA CHRISTIANSEN Consulting Unavailable HEATHER GARCIA Consulting Unavailable Allergies Allergy Classification Reported Allergen(s) Allergy Type Date of Onset Reaction(s) Facility (1 source) Metoclopramide Drug Allergy 4 Anaphylaxis [facility] (14 sources) Sulfonamides (Antibiotic); Translations: [SULFA (SULFONAMIDE ANTIBIOTICS)] Allergy to substance 8 Anaphylaxis, Shortness Of Breath [facility] (13 sources) Metoclopramide; Translations: [METOCLOPRAMIDE HCL] Drug Allergy 3 Anaphylaxis, Shortness Of Breath [facility] (20 sources) Naproxen; Translations: [NAPROXEN] Drug Allergy 3 Other, Rash [facility] (20 sources) Metoclopramide Drug Allergy 3 Anaphylaxis, Shortness of breath [facility] (20 sources) Sulfonamides (Antibiotic) Drug Allergy 8 Anaphylaxis [facility] Medications Current Medications Medication Drug Class(es) Dates Sig (Normalized) Sig (Original) Blood Glucose Monitoring Suppl (Blood Glucose Monitor System) w/Device kit (5 sources) Start: 09-28-2024 Blood Glucose Monitoring Suppl (Blood Glucose Monitor System) w/Device kit Indications: Prediabetes 1 each Daily 1 kit 09/28/2024 Active 24 hr buPROPion hydrochloride 150 mg extended release oral tablet (3 sources) Aminoketone Start: 01-16-2025 take 1 tablet by mouth every twenty-four hours in the morning buPROPion XL (Wellbutrin XL) 150 MG 24 hr tablet Take 150 mg by mouth in the morning. 01/16/2025 Active Start: 01-16-2025 take 1 tablet by elyse th once daily in the morning buPROPion XL (WELLBUTRIN XL) 150 mg 24 hr tablet Take 1 tablet (150 mg total) by mouth every morning. 30 tablet 01/16/2025 Active celecoxib 200 mg oral capsule (13 sources) Nonsteroidal Anti-inflammatory Drug Start: 08-28-2024 take 1 capsule by mouth twice daily as needed for pain celecoxib (CeleBREX) 200 MG capsule Indications: Degeneration of intervertebral disc of lumbar region with discogenic back pain and lower extremity pain Take 1 capsule (200 mg) by mouth 2 (two) times a day as needed for mild pain or moderate pain Take with food 60 capsule 2 08/28/2024 Active cyclobenzaprine hydrochloride 10 mg oral tablet (20 sources) Muscle Relaxant Start: 02-10-2024 take 1 tablet by mouth in the morning, then take 1 tablet by mouth in the evening, then take 1 tablet by mouth at bedtime cyclobenzaprine (Flexeril) 10 MG tablet Indications: Spasm of right trapezius muscle Take 1 tablet (10 mg) by mouth in the morning and 1 tablet (10 mg) in the evening and 1 tablet (10 mg) before bedtime. 60 tablet 2 04/17/2024 Active doxycycline hyclate 100 mg oral tablet (2 sources) Tetracycline-class Drug Start: 05-10-2024 End: 05-20-2024 doxycycline (Vibra-Tabs) 100 MG tablet Indications: Abscess of right axilla Take 1 tablet (100 mg) by mouth in the morning and 1 tablet (100 mg) before bedtime. Do all this for 10 days. Take with a full glass of water and do not lie down for at least 30 minutes after.. 20 tablet 05/10/2024 05/20/2024 Active fluconazole 200 mg oral tablet (1 source) Azole Antifungal Start: 02-10-2024 End: 02-24-2024 take 1 tablet by mouth in the morning fluconazole (DIFLUCAN) 200 mg tablet Take 1 tablet (200 mg total) by mouth in the morning. 02/10/2024 02/24/2024 Active Ketotifen (1 source) Histamine-1 Receptor Inhibitor Start: 01-19-2024 take 1 drop(s) into the eye(s) every twelve hours Ketotifen Fumarate Active 1 DROPS EYE-BOTH Every 12 hours January 19, 2024 12:00am 24 hr metFORMIN hydrochloride 500 mg extended release oral tablet (15 sources) Biguanide Start: 09-05-2024 End: 09-05-2025 take 1 tablet by mouth every twenty-four hours at mealtime metFORMIN XR (Glucophage-XR) 500 MG 24 hr tablet Indications: Insulin resistance Take 1 tablet (500 mg) by mouth in the evening. Take with meals Do not crush, chew, or split. 30 tablet 11 09/05/2024 09/05/2025 Active End: 01-15-2025 take 1 tablet by mouth once daily at dinner metFORMIN XR (GLUCOPHAGE XR) 500 mg 24 hr tablet Take 1 tablet (500 mg total) by mouth daily with dinner. 01/15/2025 Discontinued (Therapy completed) metroNIDAZOLE 500 mg oral tablet (1 source) Nitroimidazole Antimicrobial Start: 09-07-2024 End: 09-14-2024 take 1 tablet by mouth in the morning metroNIDAZOLE (Flagyl) 500 MG tablet Indications: Vaginitis due to Trichomonas Take 1 tablet (500 mg) by mouth in the morning and 1 tablet (500 mg) before bedtime. Do all this for 7 days. Do not drink alcohol while taking this medication. 14 tablet 09/07/2024 09/14/2024 Active nystatin 100 unt/mg topical powder (20 sources) Polyene Antifungal Start: 12-25-2024 nystatin (Mycostatin) 947420 UNIT/GM powder Indications: Dermatitis APPLY 1 APPLICATION TOPICALLY TWICE DAILY 60 g 12/25/2024 Active Start: 12-25-2024 nystatin (MYCO STATIN) powder Apply 1 Application topically in the morning and 1 Application before bedtime. 12/25/2024 Active Start: 07-26-2024 nystatin (Myco statin) 788503 UNIT/GM powder Indications: Dermatitis Apply topically 2 (two) times a day 60 g 3 07/26/2024 Active Start: 12-09-2023 End: 03-07-2024 nystatin (MYCOSTATIN) powder Apply 1 Application topically in the morning and 1 Application at noon and 1 Application in the evening and 1 Application before bedtime. 15 g 12/09/2023 03/07/2024 Discontinued omeprazole 40 mg delayed release oral capsule (20 sources) Proton Pump Inhibitor Start: 06-02-2024 take 1 capsule by mouth before mealtime omeprazole (PriLOSEC) [address] capsule Indications: Gastroesophageal reflux disease without esophagitis Take 1 capsule (40 mg) by mouth in the morning. Take before meals. Do not crush or chew.. 30 capsule 12/04/2024 Active pantoprazole 20 mg delayed release oral tablet (2 sources) Proton Pump Inhibitor take 2 tablets by mouth in the morning pantoprazole (PROTONIX) 20 mg EC tablet Take 2 tablets (40 mg total) by mouth in the morning. Active phentermine hydrochloride 37.5 mg oral tablet (20 sources) Sympathomimetic Amine Anorectic Start: 11-20-2024 take 39-39.9 tablets by mouth before mealtime phentermine (Adipex-P) 37.5 MG tablet Indications: Class 2 severe obesity due to excess calories with serious comorbidity and body mass index (BMI) of 39.0 to 39.9 in adult (CMS/HCC) Take 1 tablet (37.5 mg) by mouth in the morning. Take before meals. 30 tablet 11/20/2024 Active Start: 08-28-2024 End: 11-15-2024 take 39-39.9 tablets by mouth before mealtime phentermine (Adipex-P) 37.5 MG tablet Indications: Class 2 severe obesity due to excess calories with serious comorbidity and body mass index (BMI) of 39.0 to 39.9 in adult (CMS/HCC) Take 1 tablet (37.5 mg) by mouth in the morning. Take before meals. 30 tablet 10/16/2024 11/15/2024 Active Start: 02-10-2024 End: 01-15-2025 take 1 tablet by mouth before mealtime phentermine (Adipex-P) 37.5 MG tablet Indications: Morbid obesity due to excess calories (CMS/HCC) Take 1 tablet (37.5 mg) by mouth in the morning. Take before meals. 30 tablet 04/17/2024 05/10/2024 Discontinued predniSONE 20 mg oral tablet (3 sources) Start: 01-05-2025 take 4 tablets by mouth once daily at breakfast predniSONE (DELTASONE) 20 mg tablet Indications: Thrombocytopenia Take 4 tablets (80 mg total) by mouth daily with breakfast. Continue taking prednisolone until you follow up with Hematology. Please follow up with them MARTINEZ to determine how long you should be prednisolone. This medication is not lifelong and should be tapered off. 30 tablet 2 01/05/2025 Active pregabalin 75 mg oral capsule (4 sources) Start: 05-16-2024 End: 06-02-2024 take 1 capsule by mouth in the morning pregabalin (Lyrica) 75 MG capsule Indications: DDD (degenerative disc disease), cervical Take 1 capsule (75 mg) by mouth in the morning and 1 capsule (75 mg) before bedtime. 60 capsule 2 05/16/2024 06/02/2024 Discontinued sennosides, long-term 8.6 mg oral tablet (2 sources) take 1 tablet by mouth in the morning senna (SENOKOT) 8.6 mg tablet Take 1 tablet (8.6 mg total) by mouth in the morning. Active sod sulf-pot chloride-mag sulf 1.479-0.188- 0.225 gram tablet (2 sources) Start: 02-16-2024 sod sulf-pot chloride-mag sulf 1.479-0.188- 0.225 gram tablet Indications: Encounter for screening colonoscopy Please see instructional sheet given by physicians office. 24 tablet 02/16/2024 Active terbinafine 250 mg oral tablet (3 sources) Allylamine Antifungal Start: 07-26-2024 End: 08-09-2024 take 1 tablet by mouth once daily terbinafine (LamISIL) 250 MG tablet Indications: Tinea corporis Take 1 tablet (250 mg) by mouth Daily for 14 days 14 tablet 07/26/2024 08/09/2024 Active Start: 05-10-2024 End: 05-24-2024 take 1 tablet by mouth once daily terbinafine (LamISIL) 250 MG tablet Indications: Tinea corporis Take 1 tablet (250 mg) by mouth Daily for 14 days 14 tablet 05/10/2024 05/24/2024 Active traMADol hydrochloride 50 mg oral tablet (5 sources) Opioid Agonist Start: 05-31-2024 End: 06-07-2024 take 1 tablet by mouth three times daily as needed for pain traMADol (Ultram) 50 MG tablet Indications: DDD (degenerative disc disease), cervical Take 1 tablet (50 mg) by mouth 3 (three) times a day as needed for severe pain for up to 7 days 21 tablet 05/31/2024 06/07/2024 Active Start: 05-29-2024 End: 05-31-2024 take 1 tablet by mouth four times daily as needed for pain traMADol (Ultram) 50 MG tablet Indications: DDD (degenerative disc disease), cervical Take 1 tablet (50 mg) by mouth 4 (four) times a day as needed for severe pain for up to 7 days 28 tablet 05/29/2024 05/31/2024 Discontinued 24 hr venlafaxine 37.5 mg extended release oral capsule (3 sources) Serotonin and Norepinephrine Reuptake Inhibitor Start: 04-06-2024 End: 05-10-2024 take 1 capsule by mouth once daily venlafaxine XR (Effexor XR) 37.5 MG 24 hr capsule Indications: Menopausal syndrome (hot flashes) Take 1 capsule (37.5 mg) by mouth Daily Do not crush or chew. 30 capsule 3 04/06/2024 05/10/2024 Discontinued vitamin b12 1 mg oral tablet (2 sources) Vitamin B12 take 1 tablet by mouth in the morning cyanocobalamin (vitamin B-12) 1000 MCG tablet Take 1 tablet (1,000 mcg total) by mouth in the morning. Active Completed/Discontinued Medications Medication Drug Class(es) Dates Sig (Normalized) Sig (Original) acetaminophen 325 mg oral tablet (1 source) Start: 01-15-2025 End: 01-16-2025 take 1 tablet by mouth every four hours as needed 650 mg, oral, Every 4 hours PRN, Temperature greater than 38.3 C, Starting on Wed01/15/25 at 1822, [Warning: Total Acetaminophen not to exceed more than 4 grams (4000 mg) in 24 hours] acetaminophen 300 mg / codeine phosphate 30 mg oral tablet (4 sources) Opioid Agonist Start: 08-28-2024 End: 09-05-2024 take 1 tablet by mouth four times daily as needed for pain acetaminophen-codei ne (Tylenol w/ Codeine #3) 300-30 MG tablet Indications: Degeneration of intervertebral disc of lumbar region with discogenic back pain and lower extremity pain Take 1 tablet by mouth 4 (four) times a day as needed for severe pain or moderate pain for up to 5 days 20 tablet 08/28/2024 09/05/2024 Discontinued aluminum hydroxide 40 mg/ml / magnesium hydroxide 40 mg/ml / simethicone 4 mg/ml oral suspension (1 source) Start: 01-15-2025 End: 01-16-2025 apixaban 5 mg oral tablet (7 sources) Factor Xa Inhibitor Start: 01-01-2025 End: 01-16-2025 take 5 mg by mouth twice daily 5 mg, oral, 2 times daily, First dose on Wed01/15/25 at 2100, Indication: Nonvalvular Atrial Fibrillation (NVAF) aspirin 81 mg delayed release oral tablet (4 sources) Platelet Aggregation Inhibitor, Nonsteroidal Anti-inflammatory Drug Start: 01-05-2025 End: 01-16-2025 take 81 mg by mouth once daily 81 mg, oral, Daily, First dose on Wed01/15/25 at 1830, Do not crush or chew. atorvastatin 40 mg oral tablet (4 sources) HMG-CoA Reductase Inhibitor Start: 01-05-2025 End: 01-16-2025 take 40 mg by mouth once daily 40 mg, oral, Nightly, First dose on Wed01/15/25 at 2200, Look-alike/sound-al nyasia medication - verify indication for use. clotrimazole 10 mg/ml topical cream (3 sources) Azole Antifungal Start: 01-19-2024 clotrimazole (LOTRIMIN) 1 % cream Apply 1 Application topically in the morning and 1 Application before bedtime. 01/19/2024 Suspended COVID-19 vacc,mRNA(PF) (MODERNA) injection 0.5 mL (2 sources) Start: 12-18-2020 End: 02-16-2024 COVID-19 vacc,mRNA(PF) (MODERNA) injection 0.5 mL Start: 12-18-2020 COVID-19 vacc, mRNA(PF) (MODERNA) injection 0.5 mL diphenhydrAMINE (1 source) Histamine-1 Receptor Antagonist Start: 01-15-2025 End: 01-15-2025 25 mg, intravenous, Once, On Wed01/15/25 at 1715, For 1 dose, Look-alike/sound-alike medication - verify indication for use. docusate sodium 50 mg / sennosides, long-term 8.6 mg oral tablet (1 source) Start: 01-15-2025 End: 01-16-2025 take 1 tablet by mouth every twelve hours as needed for constipation famotidine 20 mg oral tablet (1 source) Histamine-2 Receptor Antagonist Start: 01-15-2025 End: 01-16-2025 take 20 mg by mouth every twelve hours 20 mg, oral, Every 12 hours, First dose on Wed01/15/25 at 2100, Pharmacy to adjust dose per renal function fluticasone propionate 0.05 mg/actuat metered dose nasal spray (3 sources) Corticosteroid Start: 01-19-2024 fluticasone propionate (FLONASE) 50 mcg/actuation nasal spray Administer 2 sprays into each nostril as needed. 01/19/2024 Suspended Start: 01-19-2024 take 2 spray(s) nasa l route once daily Fluticasone Propionate (Flonase Allergy Relief) 50 mcg/actuation spray,suspension Active 2 SPRAY INTRANASAL Daily January 19, 2024 12:00am administer 2 spray into each nostril glucagon (rdna) 1 mg injecti on (1 source) Antihypoglycemic Agent Start: 01-15-2025 End: 01-16-2025 50 ml glucose 500 mg/ml pref illed syringe (2 sources) Start: 01-15-2025 End: 01-16-2025 Start: 01-15-2025 End: 01-16-2025 ibuprofen 600 mg oral tablet (1 source) Nonsteroidal Anti-inflammatory Drug Start: 01-15-2025 End: 01-15-2025 600 mg, oral, Once, On Wed01/15/25 at 1750, For 1 dose, Look-alike/sound-alike medication - verify indication for use. Take/Give with food or milk. 3 ml insulin lispro 100 unt/ml pen injector (1 source) Insulin Analog Start: 01-15-2025 End: 01-16-2025 inject 400 mg by subcutaneous injection once daily, then inject 2 [IU] by subcutaneous injection 15 minutes after mealtime 2-8 Units, subcutaneous, Nightly, First dose on [...] minutes before or immediately after a meal. iohexoL (OMNIPAQUE) 350 mg iodine/mL injection 100 mL (1 source) Start: 01-15-2025 End: 01-15-2025 100 mL, intravenous, Once in imaging, contrast, Starting on Wed01/15/25 at 1522, For 1 dose, VESICANT (RED) loratadine 10 mg oral tablet (5 sources) Start: 12-09-2023 take 1 tablet by mouth in the morning loratadine (CLARITIN) 10 mg tablet Take 1 tablet (10 mg total) by mouth in the morning. 30 tablet 12/09/2023 Suspended 1 ml LORazepam 2 mg/ml injection (3 sources) Benzodiazepine Start: 01-16-2025 End: 01-16-2025 take 1 mg intravenously once as needed 1 mg, intravenous, Once as needed, give prior to MRI, Starting on Wed01/16/25 at 0853, For 1 dose, Look-alike/sound-alike medication - verify indication for use;IV use requires increased monitoring of HR,BP,Respirations and Pulse Oximetry;For IV-dilute with equal volume PF sod chloride, Indication: Other, Indication: MRI take 1 tablet by elyse th in the morning, then take 1 tablet by mouth at bedtime LORazepam (ATIVAN) 0.5 mg tablet Take 1 tablet (0.5 mg total) by mouth in the morning and 1 tablet (0.5 mg total) before bedtime. Active 50 ml magnesium sulfate 40 mg/ml injection (2 sources) Start: 01-15-2025 End: 01-16-2025 2,000 mg, intravenous, at 25 mL/hr, Administer over 120 Minutes, As needed, Magnesium level 1.7 to 1.9 mg/dL, or Ionized Magnesium level 0.45 to 0.5 mmol/L., Starting on Wed01/15/25 at 1822, Recheck magnesium level 4 hours after infusion complete. With each magnesium result continue the replacement orders as needed. Start: 01-15-2025 End: 01-16-2025 meloxicam 15 mg oral tablet (9 sources) Nonsteroidal Anti-inflammatory Drug Start: 06-02-2024 End: 09-05-2024 take 1 tablet by mouth once daily at mealtime meloxicam (Mobic) 15 MG tablet Indications: DDD (degenerative disc disease), cervical Take 1 tablet (15 mg) by mouth Daily Take with food 30 tablet 3 06/02/2024 09/05/2024 Discontinued take 1 tablet by mouth in the mo rning meloxicam (MOBIC) 7.5 mg tablet Take 1 tablet (7.5 mg total) by mouth in the morning. Suspended ondansetron 4 mg disintegrating oral tablet (1 source) Serotonin-3 Receptor Antagonist Start: 01-15-2025 End: 01-16-2025 take 1 tablet by mouth (buccal) every six hours as needed for nausea and vomiting Potassium Chloride (1 source) Start: 01-15-2025 End: 01-16-2025 potassium chloride (K-TAB,KLOR-CON ) CR tablet 30-50 mEq 1000 ml sodium chloride 9 mg/ml injection (4 sources) Start: 01-15-2025 End: 01-16-2025 Start: 01-15-2025 End: 01-15-2025 80 mL, intravenous, Once in imaging, pre/post contrast, Starting on Wed01/15/25 at 1522, For 1 dose Start: 01-15-2025 End: 01-16-2025 10 mL, intravenous, As neede d, line care, Starting on Wed01/15/25 at 1522 Start: 01-15-2025 End: 01-16-2025 take 25 mL intravenously every hour 25 mL/hr, intravenous, Continuous, Starting on Wed01/15/25 at 1510, For 1 day sodium phosphate 20 mmol in sodium chloride 0.9 % 250 mL IVPB (1 source) Start: 01-15-2025 End: 01-16-2025 sodium phosphate 20 mmol in sodium chloride 0.9 % 250 mL IVPB Problems Active Problems Problem Classification Problem Date Documented Da te Episodic/Chronic Acute cerebrovascular disease (8 sources) Cerebrovascular accident; Translations: [Cerebral infarction, unspecified] Onset: 5 12-27-2024 Chronic Acute cerebrovascular disease (1 source) Acute cerebrovascular disease Onset: Allergic reactions (1 source) Inflammatory dermatosis; Translations: [Dermatitis, unspecified] 07-26-2024 Episodic Coagulation and hemorrhagic disorders (1 source) Thrombocytopenia, unspecified; Translations: [Thrombocytopenia, unspecified] Onset: Chronic Diseases of white blood cells (2 sources) Leukocytosis; Translations: [Elevated white blood cell count, unspecified] Onset: 5 01-16-2025 Chronic Esophageal disorders (20 sources) Gastroesophageal reflux disease without esophagitis; Translations: [Gastro-esophageal reflux disease without esophagitis] Onset: 4 06-02-2024 Chronic Headache; including migraine (6 sources) Migraine with aura; Translations: [Migraine without aura, not refractory ] Onset: 5 01-16-2025 Chronic Immunizations and screening for infectious disease (4 sources) Exposure to sexually transmissible disorder; Translations: [Contact with and (suspected) exposure to infections with a predominantly sexual mode of transmission] 09-05-2024 Episodic Malaise and fatigue (6 sources) Asthenia; Translations: [Weakness] Onset: 5 01-16-2025 Episodic Menopausal disorders (20 sources) Menopausal flushing; Translations: [Menopausal and female climacteric states] Onset: 4 04-06-2024 Chronic Osteoarthritis (19 sources) Osteoarthritis of joint of right shoulder region; Translations: [Primary osteoarthritis, right shoulder] Onset: 4 05-15-2024 Chronic Other circulatory disease (3 sources) Thrombotic thrombocytopenic purpura; Translations: [TTP (thrombotic thrombocytopenic purpura)] Onset: 5 01-01-2025 Chronic Other circulatory disease (5 sources) History of cerebrovascular accident; Translations: [Personal history of transient ischemic attack (TIA), and cerebral infarction without residual deficits] Onset: 5 01-16-2025 Episodic Other circulatory disease (1 source) Personal history of transient ischemic attack (TIA), and cerebral infarction without residual deficits; Translations: [Personal history of transient ischemic attack (TIA), and cerebral infarction without residual deficits] Onset: 5 Episodic Other connective tissue disease (2 sources) Neurological symptom; Translations: [Unspecified symptoms and signs involving the nervous system] Onset: 5 01-16-2025 Episodic Other female genital disorders (2 sources) Vaginal discharge; Translations: [Other specified noninflammatory disorders of vagina] 09-05-2024 Episodic Other nervous system disorders (1 source) Other chronic pain; Translations: [Other chronic pain] Onset: 4 Chronic Other nervous system disorders (1 source) Unspecified abnormalities of gait and mobility; Translations: [Unspecified abnormalities of gait and mobility] Onset: 5 Episodic Other nutritional; endocrine; and metabolic disorders (18 sources) Severe obesity; Translations: [Class 2 severe obesity due to excess calories with serious comorbidity and body mass index (BMI) of 39.0 to 39.9 in adult ([facility])] Onset: 4 08-28-2024 Chronic Other nutritional; endocrine; and metabolic disorders (2 sources) Insulin resistance; Translations: [Insulin resistance] 09-05-2024 Chronic Other nutritional; endocrine; and metabolic disorders (2 sources) Hypomagnesemia; Translations: [Hypomagnesemia] Onset: 5 01-16-2025 Chronic Other upper respiratory disease (1 source) Allergy to pollen; Translations: [Allergic rhinitis due to pollen] 01-19-2024 Chronic Other upper respiratory disease (1 source) Seasonal allergic rhinitis; Translations: [Other seasonal allergic rhinitis] 01-19-2024 Chronic Other upper respiratory disease (1 source) Allergic rhinitis due to pollen; Translations: [Allergic rhinitis, cause unspecified] 01-19-2024 Chronic Phlebitis; thrombophlebitis and thromboembolism (2 sources) Acute deep venous thrombosis of right femoral vein; Translations: [Acute embolism and thrombosis of right femoral vein] Onset: 5 01-16-2025 Episodic Residual codes; unclassified (20 sources) Obstructive sleep apnea syndrome; Translations: [Obstructive sleep apnea (adult) (pediatric)] Onset: 4 02-10-2024 Chronic Residual codes; unclassified (2 sources) Other specified postprocedural states; Translations: [Other postprocedural status] Onset: 5 01-16-2025 Episodic Spondylosis; intervertebral disc disorders; other back problems (20 sources) Degeneration of cervical intervertebral disc; Translations: [Other cervical disc degeneration, unspecified cervical region] Onset: 4 05-30-2024 Chronic Unclassified (1 source) Colon Cancer Screening Onset: 4 Unclassified (1 source) EMS Onset: 5 Unclassified (1 source) Other thrombotic microangiopathy; Translations: [Other thrombotic microangiopathy] Onset: 5 Past or Other Problems Problem Classification Problem Date Documented Da te Episodic/Chronic Diabetes mellitus without complication (20 sources) Prediabetes; Translations: [Prediabetes] Onset: 02-10-2024 02-10-2024 Episodic Mood disorders (5 sources) Mood disorders Onset: 12-27-2024 12-27-2024 Mycoses (20 sources) Candidiasis of skin; Translations: [Candidiasis of skin and nail] Onset: 02-10-2024 Resolved: 06-02-2024 01-19-2024 Episodic Other aftercare (19 sources) Long-term current use of drug therapy; Translations: [Other cost coordinator (current) drug therapy] Onset: 02-22-2024 02-22-2024 Episodic Other aftercare (3 sources) Patient encounter status; Translations: [Other half-way (current) drug therapy] Onset: 02-22-2024 02-22-2024 Episodic Other gastrointestinal disorders (20 sources) Drug-induced constipation; Translations: [Drug induced constipation] Onset: 04-06-2024 04-06-2024 Episodic Other hematologic conditions (19 sources) History of immune thrombocytopenia; Translations: [Personal history of diseases of the blood and blood-forming organs and certain disorders involving the immune mechanism] Onset: 06-02-2024 06-02-2024 Episodic Other lower respiratory disease (1 source) Pleurodynia; Translations: [Pleurodynia] Onset: 05-12-2024 Episodic Other non-traumatic joint disorders (5 sources) Chronic pain of right upper limb; Translations: [Pain in right shoulder] Onset: 04-06-2024 04-06-2024 Episodic Other non-traumatic joint disorders (1 source) Pain in right shoulder; Translations: [Pain in right shoulder] Onset: 05-12-2024 Episodic Other nutritional; endocrine; and metabolic disorders (11 sources) Morbid obesity; Translations: [Morbid (severe) obesity due to excess calories] Onset: 02-10-2024 Resolved: 06-02-2024 02-10-2024 Chronic Other screening for suspected conditions (not mental disorders or infectious disease) (7 sources) Encounter for screening for malignant neoplasm of colon; Translations: [Patient encounter status] Onset: 02-16-2024 09-05-2024 Episodic Skin and subcutaneous tissue infections (20 sources) Abscess of right axilla; Translations: [Cutaneous abscess of right axilla] Onset: 05-10-2024 Resolved: 06-02-2024 05-10-2024 Episodic Spondylosis; intervertebral disc disorders; other back problems (20 sources) Muscle spasm of cervical muscle of neck; Translations: [Muscle spasm of back] Onset: 02-10-2024 Resolved: 04-06-2024 04-06-2024 Episodic Results Test Name Value Interpretation Reference Range Facility ALL CBC WITH AUTO DIFFon BASOPHILS ABSOLUTE AUTO 0 [facility] Basophils/100 WBC (Bld) 0.2 % 0.2 - 2.0 % [facility] Eosinophils/100 WBC (Bld) 1.2 % 0.9 - 7.0 % [facility] Erythrocyte distribution width (RBC) [Ratio] 18.6 % High 11.0 - 15.0 % [facility] Hematocrit (Bld) [Volume fraction] 34 % Low 36.0 - 48.0 % [facility] Hemoglobin (Bld) [Mass/Vol] 10.7 g/dL Low 12.0 - 16.0 g/dL [facility] IMMATURE GRANULOCYTES ABS AUTO 0.[address] [facility] Immature granulocytes/100 WBC (Bld) 2.6 % High 0.0 - 0.5 % [facility] Interpretation and review of laboratory results Abnormal [facility] LYMPHOCYTES ABSOLUTE AUTO 2.7 [facility] Lymphocytes/100 WBC (Bld) 21.6 % 20.5 - 60.0 % [facility] MCH (RBC) [Entitic mass] 30.1 pg 26.7 - 34.[address] [facility] MCHC (RBC) [Mass/Vol] 31.5 g/dL 29.9 - 35.2 g/dL [facility] MCV (RBC) [Entitic vol] 95.8 fL 81.0 - 99.[address] [facility] MONOCYTES ABSOLUTE AUTO 0.6 [facility] Monocytes/100 WBC (Bld) 4.9 % 1.7 - 12.0 % [facility] NEUTROPHILS ABSOLUTE AUTO 8.[address] [facility] Neutrophils/100 WBC (Bld) 69.5 % 43.0 - 75.0 % [facility] Platelet mean volume (Bld) [Entitic vol] 9.2 fL Low 9.5 - 13.[address] [facility] TBH EO # 0.2 [facility]H PLT 159 [facility] RBC 3.55 Low [facility] WBC 12.[address] [facility] BEDSIDE GLUCOSEon 01-16-2025 Glucose [Mass/Vol] 155 mg/dL High 65-99 [facility] Comment on above: Performed By: #### B EDG ####[facility] ([address] [address] VIR Bedside Glucose *Place/Obtai n serum glucose if >500 per glucometer.on 01-16-2025 Glucose [Mass/Vol] 155 mg/dL High 65 - 99 mg/dL [facility] Interpretation and review of laboratory results Abnormal [facility] Glucose [Mass/Vol] 225 mg/dL High 65 - 99 mg/dL [facility] Interpretation and review of laboratory results Abnormal [facility] CBC WITH AUTO DIFFERENTIALon 01-16-2025 Band form neutrophils/100 WBC (Bld) 1 % Normal [facility] Comment on above: Result Comment: This is an appended report. These results have been appended to a previously preliminary verified report. Performed By: #### C BCA ####[facility] ([address] [address] VIR CELLAVISION DIFFERENTIAL TYPE MANUAL DIFFERENTIAL Normal [facility] Comment on above: Result Comment: This is an appended report. These results have been appended to a previously preliminary verified report. Performed By: #### C BCA ####[facility] ([address] [address] VIR CELLAVISION LYMPHOCYTES ABSOLUTE COUNT (10*3/UL) BY MANUAL COUNT 3.2 10*3/uL Normal 1.0-3.5 [facility] Comment on above: Result Comment: This is an appended report. These results have been appended to a previously preliminary verified report. Performed By: #### C BCA ####[facility] ([address] [address] VIR CELLAVISION LYMPHOCYTES RELATIVE PERCENT BY MANUAL COUNT 23 % Normal [facility] Comment on above: Result Comment: This is an appended report. These results have been appended to a previously preliminary verified report. Performed By: #### C BCA ####[facility] ([facility])[address] [place] [address] VIR CELLAVISION MONOCYTES ABSOLUTE COUNT (10*3/UL) IN BLOOD BY MANUAL COUNT 0.7 10*3/uL Normal 0.0-0.9 [facility] Comment on above: Result Comment: This is an appended report. These results have been appended to a previously preliminary verified report. Performed By: #### C BCA ####[facility] ([address] [address] VIR CELLAVISION MONOCYTES RELATIVE PERCENT BY MANUAL COUNT 5 % Normal [facility] Comment on above: Result Comment: This is an appended report. These results have been appended to a previously preliminary verified report. Performed By: #### C BCA ####[facility] ([address] [address] VIR CELLAVISION MYELOCYTE RELATIVE PERCENT BY MANUAL COUNT 1 % Normal [facility] Comment on above: Result Comment: This is an appended report. These results have been appended to a previously preliminary verified report. Performed By: #### C BCA ####[facility] ([address] [address] VIR CELLAVISION NEUTROPHILS ABSOLUTE COUNT BY MANUAL COUNT 10.0 10*3/uL High 1.5-6.6 [facility] Comment on above: Result Comment: This is an appended report. These results have been appended to a previously preliminary verified report. Performed By: #### C BCA ####[facility] ([facility])[address] [place] [address].[place] [address] VIR CELLAVISION NEUTROPHILS RELATIVE PERCENT BY MANUAL COUNT 70 % Normal [facility] Comment on above: Result Comment: This is an appended report. These results have been appended to a previously preliminary verified report. Performed By: #### C BCA ####[facility] ([address] [place] [address] VIR CELLAVISION NUCLEATED RED BLOOD CELLS IN BLOOD BY LIGHT MICROSCOPY 1 Normal [facility] Comment on above: Result Comment: This is an appended report. These results have been appended to a previously preliminary verified report. Performed By: #### C BCA ####[facility] ([address] [address] VIR CELLAVISION RBC MORPHOLOGY Reviewed Normal [facility] Comment on above: Result Comment: This is an appended report. These results have been appended to a previously preliminary verified report. Performed By: #### C BCA ####[facility] ([address] [address] VIR Erythrocyte distribution width (RBC) [Ratio] 20.2 % High 11.5-15 [facility] Comment on above: Performed By: #### C BCA ####[facility] ([address] [address] VIR Hematocrit (Bld) [Volume fraction] 30.8 % Low 35-47 [facility] Comment on above: Performed By: #### C BCA ####[facility] ([address] [address] VIR Hemoglobin (Bld) [Mass/Vol] 10.1 g/dL Low 11.7-15.5 [facility] Comment on above: Performed By: #### C BCA ####[facility] ([address] [address] VIR MCH (RBC) [Entitic mass] 30.5 pg Normal 27-34 [facility] Comment on above: Performed By: #### C BCA ####[facility] ([address] [place] [address] VIR MCHC (RBC) [Mass/Vol] 32.7 g/dL Normal 32-36 [facility] Comment on above: Performed By: #### C BCA ####[facility] ([address] [address] VIR MCV (RBC) [Entitic vol] 93 fL Normal 80-100 [facility] Comment on above: Performed By: #### C BCA ####[facility] ([address] [address] VIR Platelet mean volume (Bld) [Entitic vol] 7.9 fL Normal 7-12 [facility] Comment on above: Performed By: #### C BCA ####[facility] ([address] [address] VIR Platelets (Bld) [#/Vol] 204 10*3/uL Normal 150-450 [facility] Comment on above: Performed By: #### C BCA ####[facility] ([address] [address] VIR RBC COUNT 3.30 X10E12/L Low 3.8-5.2 [facility] Comment on above: Performed By: #### C BCA ####[facility] ([address] [address] VIR WBC (Bld) [#/Vol] 14.0 10*3/uL High 4-11 [facility] Comment on above: Performed By: #### C BCA ####[facility] ([address] [address] VIR CBC auto differentialon 12-29 0-2025 Band form neutrophils/100 WBC (Bld) 1 % [facility] Comment on above: This is an appended report. These results have been appended to a previously preliminary verified report. Differential cell count method Nom (Bld) MANUAL DIFFERENTIAL [facility] Comment on above: This is an appended report. These results have been appended to a previously preliminary verified report. Erythrocyte distribution width (RBC) [Ratio] 20.2 % High 11.5 - 15 % [facility] Hematocrit (Bld) [Volume fraction] 30.8 % Low 35 - 47 % [facility] Hemoglobin (Bld) [Mass/Vol] 10.1 g/dL Low 11.7 - 15.5 g/dL [facility] Interpretation and review of laboratory results Abnormal [facility] Lymphocytes (Bld) [#/Vol] 3.2 10*3/uL 1.0 - 3.5 10*3/uL [facility] Comment on above: This is an appended report. These results have been appended to a previously preliminary verified report. MCH (RBC) [Entitic mass] 30.5 pg 27 - 34 pg [facility] MCHC (RBC) [Mass/Vol] 32.7 g/dL 32 - 36 g/dL [facility] MCV (RBC) [Entitic vol] 93 fL 80 - 100 fL [facility] Monocytes (Bld) [#/Vol] 0.7 10*3/uL 0.0 - 0.9 10*3/uL [facility] Comment on above: This is an appended report. These results have been appended to a previously preliminary verified report. Monocytes/100 WBC (Bld) 5 % [facility] Comment on above: This is an appended report. These results have been appended to a previously preliminary verified report. Myelocytes/100 WBC (Bld) 1 % [facility] Comment on above: This is an appended report. These results have been appended to a previously preliminary verified report. Neutrophils (Bld) [#/Vol] 10 10*3/uL High 1.5 - 6.6 10*3/uL [facility] Comment on above: This is an appended report. These results have been appended to a previously preliminary verified report. Neutrophils/100 WBC (Bld) 70 % [facility] Comment on above: This is an appended report. These results have been appended to a previously preliminary verified report. nRBC 1 [facility] Comment on above: This is an appended report. These results have been appended to a previously preliminary verified report. Platelet mean volume (Bld) [Entitic vol] 7.9 fL 7 - 12 fL [facility] Platelets (Bld) [#/Vol] 204 10*3/uL [facility] RBC (Bld) [#/Vol] 3.3 10*6/uL Low [facility] RBC (Bld) [#/Vol] Reviewed [place] Comment on above: This is an appended report. These results have been appended to a previously preliminary verified report. Variant lymphocytes/100 WBC (Bld) 23 % [facility] Comment on above: This is an appended report. These results have been appended to a previously preliminary verified report. WBC LM Ql (Sput) 14 High [facility] COMPREHENSIVE METABOLIC PANE Luan 01-16-2025 Albumin [Mass/Vol] 3.2 g/dL Normal 3.2-5.3 [facility] Comment on above: Performed By: #### C MP ####[address] [address] VIR ALP [Catalytic activity/Vol] 65 U/L Normal 39-130 [facility] Comment on above: Performed By: #### C MP ####[facility] ([address] [address] VIR ALT [Catalytic activity/Vol] 39 U/L High <=31 [facility] Comment on above: Performed By: #### C MP ####[facility] ([address] [address] VIR Anion gap [Moles/Vol] 12 mmol/L Normal 5-15 [facility] Comment on above: Performed By: #### C MP ####[facility] ([address] [place] [address] VIR AST [Catalytic activity/Vol] 17 U/L Normal <=41 [facility] Comment on above: Performed By: #### C MP ####[facility] ([address] [place] [address] VIR Bilirubin [Mass/Vol] 0.6 mg/dL Normal 0.3-1.2 [facility] Comment on above: Performed By: #### C MP ####[facility] ([address] [place] [address] VIR Calcium [Mass/Vol] 9.0 mg/dL Normal 8.5-10.5 [facility] Comment on above: Performed By: #### C MP ####[facility] ([address] [place] [address] VIR Chloride [Moles/Vol] 102 mmol/L Normal 98-109 [facility] Comment on above: Performed By: #### C MP ####[facility] ([address] [place] [address] VIR CO2 [Moles/Vol] 23 mmol/L Normal 22-32 [facility] Comment on above: Performed By: #### C MP ####[facility] ([address] [place] [address] VIR Creatinine [Mass/Vol] 0.93 mg/dL Normal 0.40-1.00 [facility] Comment on above: Result Comment: METH OD TRACEABLE TO IDMS STANDARD Performed By: #### C MP ####[facility] ([address] [place] [address] VIR GFR/1.73 sq M.predicted among non-blacks MDRD (S/P/Bld) [Vol rate/Area] 76 mL/min/{1.73_m2} Normal >=60 [facility] Comment on above: Result Comment: eGFR not reported due to non-numeric value for Creatinine. Reported eGFR is based on the CKD-EPI 2020 equation that does not use a race coefficient. Performed By: #### C MP ####[facility] ([facility])[address] [place] [address].[place] [address] VIR Glucose [Mass/Vol] 140 mg/dL High 65-99 [facility] Comment on above: Performed By: #### C MP ####[facility] ([address] [place] [address] VIR Potassium [Moles/Vol] 3.5 mmol/L Normal 3.5-5.0 [facility] Comment on above: Performed By: #### C MP ####[facility] ([address] [place] [address] VIR Protein [Mass/Vol] 5.7 g/dL Low 6.0-8.0 [facility] Comment on above: Performed By: #### C MP ####[facility] ([address] [place] [address] VIR Sodium [Moles/Vol] 137 mmol/L Normal 134-146 [facility] Comment on above: Performed By: #### C MP ####[facility] ([address] [place] [address] VIR Urea nitrogen [Mass/Vol] 18 mg/dL Normal 5-23 [facility] Comment on above: Performed By: #### C MP ####[facility] ([address] [place] [address] VIR Comprehensive metabolic pane luan 01-16-2025 Albumin [Mass/Vol] 3.2 g/dL 3.2 - 5.3 g/dL [facility] ALP [Catalytic activity/Vol] 65 U/L 39 - 130 U/L [facility] ALT No additional P-5'-P [Catalytic activity/Vol] 39 U/L High NINF - 31 U/L [facility] Anion gap [Moles/Vol] 12 mmol/L 5 - 15 mmol/L [facility] AST [Catalytic activity/Vol] 17 U/L NINF - 41 U/L [facility] Bilirubin [Mass/Vol] 0.6 mg/dL 0.3 - 1 .2 mg/dL [facility] Calcium [Mass/Vol] 9 mg/dL 8.5 - 10. 5 mg/dL [facility] Chloride [Moles/Vol] 102 mmol/L 98 - 10 9 mmol/L [facility] CO2 [Moles/Vol] 23 mmol/L 22 - 32 mmol/L [facility] Creatinine [Mass/Vol] 0.93 mg/dL 0.40 - 1.00 mg/dL [facility] Comment on above: METHOD TRACEABLE TO IDAR STANDARD EGFR Non-Race Dependent 76 - PINF [facility] Comment on above: eGFR not reported du e to non-numeric value for Creatinine. Reported eGFR is based on the CKD-EPI 2020 equation that does not use a race coefficient. Glucose [Mass/Vol] 140 mg/dL High 65 - 99 mg/dL [facility] Potassium [Moles/Vol] 3.5 mmol/L 3.5 - 5.0 mmol/L [facility] Protein [Mass/Vol] 5.7 g/dL Low 6.0 - 8.0 g/dL [facility] Sodium [Moles/Vol] 137 mmol/L 134 - 146 mmol/L [facility] Urea nitrogen [Mass/Vol] 18 mg/dL 5 - 23 mg/dL [facility] FERRITINon 01-16-2025 Ferritin [Mass/Vol] 90 ng/mL Normal 11-307 [facility] Comment on above: Performed By: #### F ERR ####[facility] ([facility])[address] [address] VIR Ferritinon 01-16-2025 Ferritin [Mass/Vol] 90 ng/mL 11 - 307 ng/mL [facility] Interpretation and review of laboratory results Normal [facility] HEMOGLOBIN A1Con 01-16-2025 Glucose [Mass/Vol] 114 mg/dL Normal [facility] Comment on above: Performed By: #### H A1C ####[facility] ([facility])[address], [place] [address] VIR HbA1c (Bld) [Mass fraction] 5.6 % Normal 4.4-5.6 [facility] Comment on above: Result Comment: ADA Guidelines Result HgbA1c Normal : less than 5.7 % Prediabetes : 5.7 % to 6.4 % Diabetes : > 6.4 % Use with caution in patients with abnormal hemoglobin variants as the half-life of red blood cells and in vivo glycation rates are affected. Performed By: #### H A1C ####[facility] ([facility])[address] [address] VIR Hemoglobin A1con 01-16-2025 Average glucose Estimated from glycated hemoglobin (Bld) [Mass/Vol] 114 mg/dL [facility] HbA1c (Bld) [Mass fraction] 5.6 % 4.4 - 5.6 % [facility] Comment on above: ADA Guidelines Result HgbA1c Normal : less than 5.7 % Prediabetes : 5.7 % to 6.4 % Diabetes : > 6.4 % Use with caution in patients with abnormal hemoglobin variants as the half-life of red blood cells and in vivo glycation rates are affected. [facility] IRON AND TIBCon 01-16-2025 Iron [Mass/Vol] 84 ug/dL Normal 50-170 [facility] Comment on above: Performed By: #### F EPR ####[facility] ([facility])[address] [place] [address], [place] [address] VIR IRON BINDING 302 ug/dL Normal 250-425 [facility] Comment on above: Performed By: #### F EPR ####[facility] ([facility])[address] [place] [address], [place] [address] VIR IRON SATURATION 28 % SATURATION Normal 15-50 [facility] Comment on above: Performed By: #### F EPR ####[facility] ([facility])[address], [place] [address] VIR Transferrin [Mass/Vol] 216 mg/dL Normal 168-336 [facility] Comment on above: Performed By: #### F EPR ####[facility] ([facility])[address], [place] [address] VIR Iron and TIBCon 01-16-2025 Interpretation and review of laboratory results Normal [facility] Iron [Mass/Vol] 84 ug/dL 50 - 170 ug/dL [facility] Iron binding capacity [Mass/Vol] 302 ug/dL 250 - 425 ug/dL [facility] Iron saturation [Mass fraction] 28 [facility] Transferrin [Mass or moles/Vol] 216 mg/dL 168 - 336 mg/dL [facility] LIPID PROFILEon 01-16-2025 Cholesterol [Mass/Vol] 170 mg/dL Normal 150-200 [facility] Comment on above: Performed By: #### L IPR ####[facility] ([facility])[address], [place] [address] VIR Cholesterol in HDL [Mass/Vol] 71 mg/dL Normal >39 [facility] Comment on above: Result Comment: HDL <40 mg/dL - High Risk HDL > or = 40mg/dL- Desirable HDL >60 mg/dL - Negative Risk Performed By: #### L IPR ####[facility] ([facility])[address], [place] [address] VIR Cholesterol in LDL [Mass/Vol] 80 mg/dL Normal <130 [facility] Comment on above: Result Comment: LDL <100 mg/dL - Desirable LDL >160 mg/dL - High Risk Performed By: #### L IPR ####[facility] ([facility])[address], [place] [address] VIR CHOLESTEROL:HDL 2.4 Normal 1.0-5.0 [facility] Comment on above: Performed By: #### L IPR ####[facility] ([facility])[address] [address] VIR Triglyceride [Mass/Vol] 97 mg/dL Normal 27-150 [facility] Comment on above: Performed By: #### L IPR ####[facility] ([facility])[address] [address] VIR VERY LOW LIPOPROTEIN 19 mg/dL Normal 0-30 [facility] Comment on above: Performed By: #### L IPR ####[facility] ([facility])[address] [address] VIR Light Blue Topon 01-16-2025 Extra Tube Auto Resulted [facility] Lipid profileon 01-16-2025 Cholesterol [Mass/Vol] 170 mg/dL 150 - 200 mg/dL [facility] Cholesterol in HDL [Mass/Vol] 71 mg/dL 39 - PINF mg/dL [facility] Comment on above: HDL <40 mg/dL - High Risk HDL > or = 40mg/dL- Desirable HDL >60 mg/dL - Negative Risk Cholesterol in HDL [Mass/Vol] 2.4 mg/dL 1.0 - 5.0 [facility] Cholesterol in LDL [Mass/Vol] 80 mg/dL NINF - 130 mg/dL [facility] Comment on above: LDL <100 mg/dL - Carl irable LDL >160 mg/dL - High Risk Cholesterol in VLDL [Mass/Vol] 19 mg/dL 0 - 30 mg/dL [facility] Interpretation and review of laboratory results Normal [facility] Triglyceride [Mass/Vol] 97 mg/dL 27 - 150 mg/dL [facility] MAGNESIUMon 01-16-2025 Magnesium [Mass/Vol] 1.7 mg/dL Low 1.8-2.6 [facility] Comment on above: Performed By: #### M G ####[facility] ([facility])[address] [place] [place] [address] VIR MR BRAIN WO CONTon MR BRAIN WO CONT MR BRAIN WO CONT EXAM: MRI BRAIN [...] Leonard Quinn MD on 01/16/2025 10:39 AM [facility] MR Brain WO contraston 01-16 EXAM: MRI BRAIN WITH OUT CONTRAST CLINICAL HISTORY: CVA, rule out. TECHNIQUE: [...] Leonard Quinn MD on 01/16/2025 10:39 [facility] Quinn MD - 01/16/2025 EXAM: MRI [...] Leonard Quinn MD on 01/16/2025 10:39 AM [facility] Radiology Study observation (narrative) [facility] Magnesiumon 01-16-2025 Magnesium [Mass/Vol] 1.7 mg/dL Low 1.8 - 2 .6 mg/dL [facility] No Panel Informationon 01-16 Interpretation and review of laboratory results Abnormal [facility] , URINEon Beta HCG ( test) Ql (U) Negative Normal Negative [facility] Comment on above: Performed By: #### U PREG ####[facility] [place] [address] VIR PROCALCITONINon 01-16-2025 PROCALCITONIN 0.06 ng/mL High <0.05 [facility] Comment on above: Order Comment: <0.50 ng/mL - Low risk of severe sepsis and/or septic shock.<2.00 ng/mL - Recommend retesting within 6-24 hours.>2.00 ng/mL - High risk of sepsis and/or septic shock. Performed By: #### P FRANKIE ####[facility] [place] [address] VIR , urineOrdered By: Emi Wilhelm on 01-16-2025 HCG ( test) Ql (U) Negative Negative [facility] Interpretation and review of laboratory results Normal [facility] Procalcitoninon 01-16-2025 Interpretation and review of laboratory results Abnormal [facility] Procalcitonin IA [Mass/Vol] 0.06 ng/mL High NINF - 0.05 ng/mL [facility] <0.50 ng/mL - Low ri sk of severe sepsis and/or septic shock. <2.00 ng/mL - Recommend retesting within 6-24 hours. >2.00 ng/mL - High risk of sepsis and/or septic shock. [facility] URINALYSISon 01-16-2025 Bilirubin Ql (U) Negative Normal Negative [facility] Comment on above: Order Comment: Urine received without preservative. Delays in transport may affect results. Interpret with caution. A clinical correlation is recommended. Performed By: #### U A ####[facility] ([address] [address] VIR BLOOD/HGB Negative Normal Negative [facility] Comment on above: Order Comment: Urine received without preservative. Delays in transport may affect results. Interpret with caution. A clinical correlation is recommended. Performed By: #### U A ####[address] [address] VIR Color (U) Yellow Normal Yellow, Colorless [facility] Comment on above: Order Comment: Urine received without preservative. Delays in transport may affect results. Interpret with caution. A clinical correlation is recommended. Performed By: #### U A ####[address] [address] VIR Glucose Ql (U) Negative Normal Negative, 250 mg/dL, >1000 mg/dL [facility] Comment on above: Order Comment: Urine received without preservative. Delays in transport may affect results. Interpret with caution. A clinical correlation is recommended. Performed By: #### U A ####[address] [address] VIR Ketones Ql (U) Negative Normal Negative [facility] Comment on above: Order Comment: Urine received without preservative. Delays in transport may affect results. Interpret with caution. A clinical correlation is recommended. Performed By: #### U A ####[facility] ([address] [address] VIR Leukocyte esterase Test strip Ql (U) Negative Normal Negative [facility] Comment on above: Order Comment: Urine received without preservative. Delays in transport may affect results. Interpret with caution. A clinical correlation is recommended. Performed By: #### U A ####[facility] ([address] [address] VIR Nitrite Ql (U) Negative Normal Negative [facility] Comment on above: Order Comment: Urine received without preservative. Delays in transport may affect results. Interpret with caution. A clinical correlation is recommended. Performed By: #### U A ####[address] [address] VIR PH,URINE 6.5 Normal 5.0-8.5 [facility] Comment on above: Order Comment: Urine received without preservative. Delays in transport may affect results. Interpret with caution. A clinical correlation is recommended. Performed By: #### U A ####[address] [address] VIR Protein Ql (U) Negative Normal Negative [facility] Comment on above: Order Comment: Urine received without preservative. Delays in transport may affect results. Interpret with caution. A clinical correlation is recommended. Performed By: #### U A ####[facility] ([address] [address] VIR Specific gravity (U) [Rel density] 1.020 Normal 1.003-1.035 [facility] Comment on above: Order Comment: Urine received without preservative. Delays in transport may affect results. Interpret with caution. A clinical correlation is recommended. Performed By: #### U A ####[facility] ([address] [address] VIR TURBIDITY Clear Normal Clear [facility] Comment on above: Order Comment: Urine received without preservative. Delays in transport may affect results. Interpret with caution. A clinical correlation is recommended. Performed By: #### U A ####[facility] ([address] [place] [address] VIR UROBILINOGEN 0.2 eu/dL Normal 0.2 eu/dL, 1.0 eu/dL [facility] Comment on above: Order Comment: Urine received without preservative. Delays in transport may affect results. Interpret with caution. A clinical correlation is recommended. Performed By: #### U A ####[facility] ([address] [place] [address] VIR Urinalysison 01-16-2025 Bilirubin Ql (U) Negative Negative [facility] Color (U) Yellow Yellow, Colorless [facility] Glucose (U) [Mass/Vol] Negative Negative, 250 mg/dL, >1000 mg/dL [facility] Hemoglobin Auto test strip Ql (U) Negative Negative [facility] Interpretation and review of laboratory results Normal [facility] Ketones (U) [Mass/Vol] Negative Negative [facility] Leukocyte esterase Auto test strip Ql (U) Negative Negative [facility] Nitrite Auto test strip Ql (U) Negative Negative [facility] pH (U) 6.5 [pH] 5.0 - 8.5 [facility] Protein (U) [Mass/Vol] Negative Negative [facility] Specific gravity Refractometry automated (U) [Rel density] 1.02 1.003 - 1.035 [facility] Turbidity Ql (U) Clear Clear [facility] Urobilinogen Qn (U) [id number] {Moody'U}/dL 0.2 eu/dL, 1.0 eu/dL [facility] Urine received witho ut preservative. Delays in transport may affect results. Interpret with caution. A clinical correlation is recommended. [facility] APTTon 01-15-2025 aPTT Coag (PPP) [Time] 25 s Low [facility] Interpretation and review of laboratory results Abnormal [facility] aPTT Coag (Bld) [Time] 25 s Low 26-37 [facility] Comment on above: Performed By: #### P TT ####[facility] ([address] [place] [address] VIR BASIC METABOLIC PANELon 05- Anion gap [Moles/Vol] 9 mmol/L Normal 5-15 [facility] Comment on above: Performed By: #### B MP ####[facility] ([address] [address] VIR Calcium [Mass/Vol] 8.3 mg/dL Low 8.5-10.5 [facility] Comment on above: Performed By: #### B MP ####[address] [address] VIR Chloride [Moles/Vol] 101 mmol/L Normal 98-109 [facility] Comment on above: Performed By: #### B MP ####[facility] ([address] [address] VIR CO2 [Moles/Vol] 25 mmol/L Normal 22-32 [facility] Comment on above: Performed By: #### B MP ####[facility] ([address] [place] [address] VIR Creatinine [Mass/Vol] 0.85 mg/dL Normal 0.40-1.00 [facility] Comment on above: Result Comment: METH OD TRACEABLE TO IDMS STANDARD Performed By: #### B MP ####[facility] ([address] [address] VIR GFR/1.73 sq M.predicted among non-blacks MDRD (S/P/Bld) [Vol rate/Area] 85 mL/min/{1.73_m2} Normal >=60 [facility] Comment on above: Result Comment: eGFR not reported due to non-numeric value for Creatinine. Reported eGFR is based on the CKD-EPI 2020 equation that does not use a race coefficient. Performed By: #### B MP ####[facility] ([address] [place] [address] VIR Glucose [Mass/Vol] 190 mg/dL High 65-99 [facility] Comment on above: Performed By: #### B MP ####[facility] ([address] [place] [address] VIR Potassium [Moles/Vol] 4.3 mmol/L Normal 3.5-5.0 [facility] Comment on above: Performed By: #### B MP ####[facility] ([address] [place] [address] VIR Sodium [Moles/Vol] 135 mmol/L Normal 134-146 [facility] Comment on above: Performed By: #### B MP ####[facility] ([address] [place] [address] VIR Urea nitrogen [Mass/Vol] 19 mg/dL Normal 5-23 [facility] Comment on above: Performed By: #### B MP ####[facility] ([address] [place] [address] VIR BEDSIDE GLUCOSEon 01-15-2025 Glucose [Mass/Vol] 225 mg/dL High 65-99 [facility] Comment on above: Performed By: #### B EDG ####[facility] ([address] [place] [address] VIR Glucose [Mass/Vol] 174 mg/dL High 65-99 [facility] Comment on above: Performed By: #### B EDG ####[facility] ([address] [place] [address] VIR Basic Metabolic Panelon 12-28 Anion gap [Moles/Vol] 9 mmol/L 5 - 15 mmol/L [facility] Calcium [Mass/Vol] 8.3 mg/dL Low 8.5 - 10. 5 mg/dL [facility] Chloride [Moles/Vol] 101 mmol/L 98 - 10 9 mmol/L [facility] CO2 [Moles/Vol] 25 mmol/L 22 - 32 mmol/L [facility] Creatinine [Mass/Vol] 0.85 mg/dL 0.40 - 1.00 mg/dL [facility] Comment on above: METHOD TRACEABLE TO IDAR STANDARD EGFR Non-Race Dependent 85 - PINF [facility] Comment on above: eGFR not reported du e to non-numeric value for Creatinine. Reported eGFR is based on the CKD-EPI 2020 equation that does not use a race coefficient. Glucose [Mass/Vol] 190 mg/dL High 65 - 99 mg/dL [facility] Interpretation and review of laboratory results Abnormal [facility] Potassium [Moles/Vol] 4.3 mmol/L 3.5 - 5.0 mmol/L [facility] Sodium [Moles/Vol] 135 mmol/L 134 - 146 mmol/L [facility] Urea nitrogen [Mass/Vol] 19 mg/dL 5 - 23 mg/dL [facility] Bedside Glucose *Place/Obtai n serum glucose if >500 per glucometer.on 01-15-2025 Glucose [Mass/Vol] 174 mg/dL High 65 - 99 mg/dL [facility] Interpretation and review of laboratory results Abnormal [facility] CBC WITH AUTO DIFFERENTIALon 01-15-2025 Band form neutrophils/100 WBC (Bld) 3 % Normal [facility] Comment on above: Result Comment: This is an appended report. These results have been appended to a previously preliminary verified report. Performed By: #### C BCA ####[facility] ([address] [place] [address] VIR CELLAVISION ATYPICAL LYMPHOCYTES RELATIVE PERCENT BY MANUAL COUNT 2 % Normal [facility] Comment on above: Result Comment: This is an appended report. These results have been appended to a previously preliminary verified report. Performed By: #### C BCA ####[facility] ([facility])[address] [place] [address] VIR CELLAVISION DACROCYTES IN BLOOD BY LIGHT MICROSCOPY 1+ Normal [facility] Comment on above: Result Comment: This is an appended report. These results have been appended to a previously preliminary verified report. Performed By: #### C BCA ####[facility] ([facility])[address] [place] [address] VIR CELLAVISION DIFFERENTIAL TYPE MANUAL DIFFERENTIAL Normal [facility] Comment on above: Result Comment: This is an appended report. These results have been appended to a previously preliminary verified report. Performed By: #### C BCA ####[facility] ([address] [address] VIR CELLAVISION EOSINOPHILS ABSOLUTE COUNT (10*3/UL) BY MANUAL COUNT 0.1 10*3/uL Normal 0.0-0.4 [facility] Comment on above: Result Comment: This is an appended report. These results have been appended to a previously preliminary verified report. Performed By: #### C BCA ####[facility] ([facility])[address] [place] [address] VIR CELLAVISION EOSINOPHILS PERCENT BY MANUAL COUNT 1 % Normal [facility] Comment on above: Result Comment: This is an appended report. These results have been appended to a previously preliminary verified report. Performed By: #### C BCA ####[facility] ([facility])[address] [place] [address] VIR CELLAVISION HYPOCHROMIA IN BLOOD BY LIGHT MICROSCOPY 1+ Normal [facility] Comment on above: Result Comment: This is an appended report. These results have been appended to a previously preliminary verified report. Performed By: #### C BCA ####[facility] ([address] [address] VIR CELLAVISION LYMPHOCYTES ABSOLUTE COUNT (10*3/UL) BY MANUAL COUNT 1.9 10*3/uL Normal 1.0-3.5 [facility] Comment on above: Result Comment: This is an appended report. These results have been appended to a previously preliminary verified report. Performed By: #### C BCA ####[facility] ([address] [address] VIR CELLAVISION LYMPHOCYTES RELATIVE PERCENT BY MANUAL COUNT 15 % Normal [facility] Comment on above: Result Comment: This is an appended report. These results have been appended to a previously preliminary verified report. Performed By: #### C BCA ####[facility] ([address] [address] VIR CELLAVISION MONOCYTES ABSOLUTE COUNT (10*3/UL) IN BLOOD BY MANUAL COUNT 0.1 10*3/uL Normal 0.0-0.9 [facility] Comment on above: Result Comment: This is an appended report. These results have been appended to a previously preliminary verified report. Performed By: #### C BCA ####[facility] ([address] [address] VIR CELLAVISION MONOCYTES RELATIVE PERCENT BY MANUAL COUNT 1 % Normal [facility] Comment on above: Result Comment: This is an appended report. These results have been appended to a previously preliminary verified report. Performed By: #### C BCA ####[facility] ([address] [address] VIR CELLAVISION MYELOCYTE RELATIVE PERCENT BY MANUAL COUNT 1 % Normal [facility] Comment on above: Result Comment: This is an appended report. These results have been appended to a previously preliminary verified report. Performed By: #### C BCA ####[facility] ([address] [address] VIR CELLAVISION NEUTROPHILS ABSOLUTE COUNT BY MANUAL COUNT 9.3 10*3/uL High 1.5-6.6 [facility] Comment on above: Result Comment: This is an appended report. These results have been appended to a previously preliminary verified report. Performed By: #### C BCA ####[facility] ([address] [address] VIR CELLAVISION NEUTROPHILS RELATIVE PERCENT BY MANUAL COUNT 77 % Normal [facility] Comment on above: Result Comment: This is an appended report. These results have been appended to a previously preliminary verified report. Performed By: #### C BCA ####[facility] ([address] [address] VIR CELLAVISION NUCLEATED RED BLOOD CELLS IN BLOOD BY LIGHT MICROSCOPY 1 Normal [facility] Comment on above: Result Comment: This is an appended report. These results have been appended to a previously preliminary verified report. Performed By: #### C BCA ####[facility] ([address] [address] VIR CELLAVISION POLYCHROMASIA IN BLOOD BY LIGHT MICROSCOPY 1+ Normal [facility] Comment on above: Result Comment: This is an appended report. These results have been appended to a previously preliminary verified report. Performed By: #### C BCA ####[facility] ([address] [address] VIR Erythrocyte distribution width (RBC) [Ratio] 20.0 % High 11.5-15 [facility] Comment on above: Performed By: #### C BCA ####[facility] ([address] [address] VIR Hematocrit (Bld) [Volume fraction] 32.1 % Low 35-47 [facility] Comment on above: Performed By: #### C BCA ####[facility] ([address] [address] VIR Hemoglobin (Bld) [Mass/Vol] 10.4 g/dL Low 11.7-15.5 [facility] Comment on above: Performed By: #### C BCA ####[facility] ([address] [address] VIR MCH (RBC) [Entitic mass] 29.8 pg Normal 27-34 [facility] Comment on above: Performed By: #### C BCA ####[facility] ([address] [address] VIR MCHC (RBC) [Mass/Vol] 32.3 g/dL Normal 32-36 [facility] Comment on above: Performed By: #### C BCA ####[facility] ([address] [address] VIR MCV (RBC) [Entitic vol] 92 fL Normal 80-100 [facility] Comment on above: Performed By: #### C BCA ####[facility] ([address] [address] VIR Platelet mean volume (Bld) [Entitic vol] 7.4 fL Normal 7-12 [facility] Comment on above: Performed By: #### C BCA ####[facility] ([address] [address] VIR Platelets (Bld) [#/Vol] 218 10*3/uL Normal 150-450 [facility] Comment on above: Performed By: #### C BCA ####[facility] ([address] [address] VIR RBC COUNT 3.48 X10E12/L Low 3.8-5.2 [facility] Comment on above: Performed By: #### C BCA ####[facility] ([address] [place] [address] VIR WBC (Bld) [#/Vol] 11.5 10*3/uL High 4-11 [facility] Comment on above: Performed By: #### C BCA ####[facility] ([facility])[address] [place] [address] VIR CBC auto differentialon 12-28 Band form neutrophils/100 WBC (Bld) 3 % [facility] Comment on above: This is an appended report. These results have been appended to a previously preliminary verified report. Dacrocytes LM Ql (Bld) 1+ [facility] Comment on above: This is an appended report. These results have been appended to a previously preliminary verified report. Differential cell count method Nom (Bld) MANUAL DIFFERENTIAL [facility] Comment on above: This is an appended report. These results have been appended to a previously preliminary verified report. Eosinophils (Bld) [#/Vol] 0.1 10*3/uL 0.0 - 0.4 10*3/uL [facility] Comment on above: This is an appended report. These results have been appended to a previously preliminary verified report. Eosinophils/100 WBC (Bld) 1 % [facility] Comment on above: This is an appended report. These results have been appended to a previously preliminary verified report. Erythrocyte distribution width (RBC) [Ratio] 20 % High 11.5 - 15 % [facility] Hematocrit (Bld) [Volume fraction] 32.1 % Low 35 - 47 % [facility] Hemoglobin (Bld) [Mass/Vol] 10.4 g/dL Low 11.7 - 15.5 g/dL [facility] Hypochromia Ql (Bld) 1+ [facility] Comment on above: This is an appended report. These results have been appended to a previously preliminary verified report. Interpretation and review of laboratory results Abnormal [facility] Lymphocytes (Bld) [#/Vol] 1.9 10*3/uL 1.0 - 3.5 10*3/uL [facility] Comment on above: This is an appended report. These results have been appended to a previously preliminary verified report. MCH (RBC) [Entitic mass] 29.8 pg 27 - 34 pg [facility] MCHC (RBC) [Mass/Vol] 32.3 g/dL 32 - 36 g/dL [facility] MCV (RBC) [Entitic vol] 92 fL 80 - 100 fL [facility] Monocytes (Bld) [#/Vol] 0.1 10*3/uL 0.0 - 0.9 10*3/uL [facility] Comment on above: This is an appended report. These results have been appended to a previously preliminary verified report. Monocytes/100 WBC (Bld) 1 % [facility] Comment on above: This is an appended report. These results have been appended to a previously preliminary verified report. Myelocytes/100 WBC (Bld) 1 % [facility] Comment on above: This is an appended report. These results have been appended to a previously preliminary verified report. Neutrophils (Bld) [#/Vol] 9.3 10*3/uL High 1.5 - 6.6 10*3/uL [facility] Comment on above: This is an appended report. These results have been appended to a previously preliminary verified report. Neutrophils/100 WBC (Bld) 77 % [facility] Comment on above: This is an appended report. These results have been appended to a previously preliminary verified report. nRBC 1 [facility] Comment on above: This is an appended report. These results have been appended to a previously preliminary verified report. Platelet mean volume (Bld) [Entitic vol] 7.4 fL 7 - 12 fL [facility] Platelets (Bld) [#/Vol] 218 10*3/uL [facility] Polychromasia LM Ql (Bld) 1+ [facility] Comment on above: This is an appended report. These results have been appended to a previously preliminary verified report. RBC (Bld) [#/Vol] 3.48 10*6/uL Low [facility] Variant lymphocytes/100 WBC (Bld) 15 % [facility] Comment on above: This is an appended report. These results have been appended to a previously preliminary verified report. Variant lymphocytes/100 WBC (Bld) 2 % [facility] Comment on above: This is an appended report. These results have been appended to a previously preliminary verified report. WBC LM Ql (Sput) 11.5 High [facility] CT BRAIN WO CONT STROKE ALER Ton 01-15-2025 CT BRAIN WO CONT STROKE ALERT CT BRAIN WO CONT STROKE ALERT STUDY: CT BRAIN WO CONT STROKE ALERT [...] by Dillon Escobar on 01/15/2025 3:31 PM Normal [facility] CT CTA CAROTIDon 01-15-[address] CT[address] CAROTID [address] ANGIOGRAM OF THE NECK CLINICAL INFORMATION: stroke like symptoms. TECHNIQUE: CT angiogram performed following intravenous administration of nonionic intravenous contrast. Coronal and sagittal and 3-D volume rendered maximum intensity projection images generated and reviewed under concurrent physician supervision. Automated exposure control utilized. The [place] Symptomatic Carotid Endarterectomy Trial (NASCET) method for [...] Leonard Quinn MD on 01/15/2025 4:15 PM Normal [facility] CT CTA HEADon 01-15-[address] CTA HEAD EXAM:CT CTA HEAD INDICATION: [...] ACAs: Normal bilaterally. AComm: Normal P-Comms and seasonal delivery driver: seasonal delivery driver are patent bilaterally. Posterior communicating arteries are not well visualized. Vertebral arteries: Normal to the confluence with the basilar artery. Basilar artery: Normal. IMPRESSION: No large vessel occlusion, critical stenosis, or sizable aneurysm. Finalized by Gilberto Morales on 01/15/2025 4:21 PM Normal [facility] CT Headon 01-15-2025 STUDY: CT BRAIN WO C ONT STROKE ALERT INDICATION: Stroke, follow up; assessment [...] by Dillon Escobar on 01/15/2025 3:31 PM Dillon Perez MD - 01/15/2025 STUDY: CT BRAIN WO [...] by Dillon Escobar on 01/15/2025 3:31 PM [facility]narrative[facility] HeadOrdered By: Dillon Escobar on 01-15-2025 [facility] Work Phone: CTA Carotid artery W contras t Darryl 01-15-2025 CT ANGIOGRAM OF THE NECK CLINICAL INFORMATION: stroke like symptoms. TECHNIQUE: CT angiogram performed following intravenous administration of nonionic intravenous contrast. Coronal and sagittal and 3-D volume rendered maximum intensity projection images generated and reviewed under concurrent physician supervision. Automated exposure control utilized. The [place] Symptomatic Carotid Endarterectomy Trial (NASCET) method for [...] Leonard Quinn MD on 01/15/2025 4:15 PM [employer] Leonard Quinn MD - 01/15/2025 CT ANGIOGRAM OF THE NECK CLINICAL INFORMATION: stroke like symptoms. TECHNIQUE: CT angiogram performed following intravenous administration of nonionic intravenous contrast. Coronal and sagittal and 3-D volume rendered maximum intensity projection images generated and reviewed under concurrent physician supervision. Automated exposure control utilized. The [place] Symptomatic Carotid Endarterectomy Trial (NASCET) method for [...] Leonard Quinn MD on 01/15/2025 4:15 PM [facility] Radiology Study observation (narrative) [facility]A Carotid artery W contras t IVOrdered By: Leonard Quinn on 01-15-2025 [employer] Work Phone: CTA Head Arteries W contrast Darryl 01-15-2025 EXAM:CT CTA HEAD INDICATION: Left-sided facial droop [...] ACAs: Normal bilaterally. AComm: Normal P-Comms and seasonal delivery driver: seasonal delivery driver are patent bilaterally. Posterior communicating arteries are not well visualized. Vertebral arteries: Normal to the confluence with the basilar artery. Basilar artery: Normal. IMPRESSION: No large vessel occlusion, critical stenosis, or sizable aneurysm. Finalized by Gilberto Morales on 01/15/2025 4:21 PM [facility] Gilberto Morales MD - 01/15/2025 EXAM:CT CTA HEAD [...] ACAs: Normal bilaterally. AComm: Normal P-Comms and seasonal delivery driver: seasonal delivery driver are patent bilaterally. Posterior communicating arteries are not well visualized. Vertebral arteries: Normal to the confluence with the basilar artery. Basilar artery: Normal. IMPRESSION: No large vessel occlusion, critical stenosis, or sizable aneurysm. Finalized by Gilberto Morales on 01/15/2025 4:21 PM [facility] Study observation (narrative) [facility] CTA Head Arteries W contrast IVOrdered By: Gilberto Morales on 01-15-2025 [employer] Work Phone: ED NIHSS And Thrombolytic MD Screeningon 01-15-2025 Severiano Shah MD 01/16/2025 12:26 PM ED [...] the history and assessment of the patient. [employer] EKG 12 leadOrdered By: Simba Riggs on 01-15-2025 [facility] No Panel Informationon 01-15 [facility] PHOSPHORUSon 01-15-2025 Phosphate [Mass/Vol] 2.9 mg/dL Normal 2.4-4.9 [facility] Comment on above: Performed By: #### P HOS ####[facility] ([address] [place] [address] VIR PROTIME AND INRon 01-15-2025 INR 1.1 Normal 0.9-1.2 [facility] Comment on above: Performed By: #### P INR ####[facility] ([address] [place] [address] VIR PT Coag (PPP) [Time] 12.2 s Normal 9.8-13.2 [facility] Comment on above: Performed By: #### P INR ####[facility] ([address] [address] VIR Phosphoruson 01-15-2025 Interpretation and review of laboratory results Normal [facility] Phosphate [Mass/Vol] 2.9 mg/dL 2.4 - 4 .9 mg/dL [facility] Protime & INRon 01-15-2025 INR Coag (Platelet poor plasma or blood) [Relative time] 1.1 0.9 - 1.2 [facility] Interpretation and review of laboratory results Normal [facility] PT Coag (PPP) [Time] 12.2 s [facility] THYROID PROFILE INCLUDES TSH FT4on 01-15-2025 Free T4 [Mass/Vol] 0.89 ng/dL Normal 0.61-1.60 [facility] Comment on above: Performed By: #### T HYR ####[facility] ([address] [place] [address] VIR TSH 0.46 uIU/mL Low 0.49-4.67 [facility] Comment on above: Performed By: #### T HYR ####[facility] ([address] [place] [address] VIR TROPONIN I, HIGH SENSITIVITY 0 HOURon 01-15-2025 TROPONIN I, HIGH SENSITIVITY 9 ng/L Normal <16 [facility] Comment on above: Performed By: #### T NIHS0 ####[facility] ([facility])[address] [place] [address] VIR Thyroid profile includes TSH FT4on 01-15-2025 Free T4 [Mass/Vol] 0.89 ng/dL 0.61 - 1. 60 ng/dL [facility] Interpretation and review of laboratory results Abnormal [facility] TSH Qn 0.46 m[IU]/L Low [facility] Troponin I, High Sensitivity 0 Houron 01-15-2025 Interpretation and review of laboratory results Normal [facility] Troponin I.cardiac High sensitivity method [Mass/Vol] 9 ng/L NINF - 16 ng/L [facility] ALL CBC WITH AUTO DIFFon Erythrocyte distribution width (RBC) [Ratio] 18.4 % High 11.0 - 15.0 % [facility] Hematocrit (Bld) [Volume fraction] 32.9 % Low 36.0 - 48.0 % [facility] Hemoglobin (Bld) [Mass/Vol] 10.3 g/dL Low 12.0 - 16.0 g/dL [facility] Interpretation and review of laboratory results Abnormal [facility] MCH (RBC) [Entitic mass] 29.4 pg 26.7 - 34.[address] [facility] MCHC (RBC) [Mass/Vol] 31.3 g/dL 29.9 - 35.2 g/dL [facility] MCV (RBC) [Entitic vol] 94 fL 81.0 - 99.[address] [facility] Platelet mean volume (Bld) [Entitic vol] 9.6 fL 9.5 - 13.[address] [facility] TBH PLT [address] [facility] TB RBC 3.[address] [facility] TB WBC 15.[address] [facility] CBC WITH AUTO DIFFERENTIALon 01-05-2025 Band form neutrophils/100 WBC (Bld) 1 % Normal [facility] Comment on above: Result Comment: This is an appended report. These results have been appended to a previously preliminary verified report. Performed By: #### C BCA #### [facility] ([facility]) [address] [place] [address] VIR CELLAVISION DIFFERENTIAL TYPE CELLAVISION DIFFERENTIAL Normal [facility] Comment on above: Result Comment: This is an appended report. These results have been appended to a previously preliminary verified report. Performed By: #### C BCA #### [facility] ([facility]) [address] [place] [address] VIR CELLAVISION LYMPHOCYTES ABSOLUTE COUNT (10*3/UL) BY MANUAL COUNT 2.1 10*3/uL Normal 1.0-3.5 [facility] Comment on above: Result Comment: This is an appended report. These results have been appended to a previously preliminary verified report. Performed By: #### C BCA #### [facility] ([facility]) [address] [place] [address] VIR CELLAVISION LYMPHOCYTES RELATIVE PERCENT BY MANUAL COUNT 15 % Normal [facility] Comment on above: Result Comment: This is an appended report. These results have been appended to a previously preliminary verified report. Performed By: #### C BCA #### [facility] ([facility]) [address] [place] [address] VIR CELLAVISION METAMYELOCYTES RELATIVE PERCENT BY MANUAL COUNT 1 % Normal [facility] Comment on above: Result Comment: This is an appended report. These results have been appended to a previously preliminary verified report. Performed By: #### C BCA #### [facility] ([facility]) [address] [place] [address] VIR CELLAVISION MONOCYTES ABSOLUTE COUNT (10*3/UL) IN BLOOD BY MANUAL COUNT 0.9 10*3/uL Normal 0.0-0.9 [facility] Comment on above: Result Comment: This is an appended report. These results have been appended to a previously preliminary verified report. Performed By: #### C BCA #### [facility] ([facility]) [address] [place] [address] VIR CELLAVISION MONOCYTES RELATIVE PERCENT BY MANUAL COUNT 6 % Normal [facility] Comment on above: Result Comment: This is an appended report. These results have been appended to a previously preliminary verified report. Performed By: #### C BCA #### [facility] ([facility]) [address] [place] [address] VIR CELLAVISION NEUTROPHILS ABSOLUTE COUNT BY MANUAL COUNT 11.4 10*3/uL High 1.5-6.6 [facility] Comment on above: Result Comment: This is an appended report. These results have been appended to a previously preliminary verified report. Performed By: #### C BCA #### [facility] ([facility]) [address] [place] [address] VIR CELLAVISION NEUTROPHILS RELATIVE PERCENT BY MANUAL COUNT 78 % Normal [facility] Comment on above: Result Comment: This is an appended report. These results have been appended to a previously preliminary verified report. Performed By: #### C BCA #### [facility] ([facility]) [address] [place] [address] VIR CELLAVISION NUCLEATED RED BLOOD CELLS IN BLOOD BY LIGHT MICROSCOPY 3 Normal [facility] Comment on above: Result Comment: This is an appended report. These results have been appended to a previously preliminary verified report. Performed By: #### C BCA #### [facility] ([facility]) [address] [place] [address] VIR CELLAVISION POLYCHROMASIA IN BLOOD BY LIGHT MICROSCOPY 1+ Normal [facility] Comment on above: Result Comment: This is an appended report. These results have been appended to a previously preliminary verified report. Performed By: #### C BCA #### [facility] ([facility]) [address] [place] [address] VIR Erythrocyte distribution width (RBC) [Ratio] 16.6 % High 11.5-15 [facility] Comment on above: Performed By: #### C BCA #### [facility] ([facility]) [address] [place] [address] VIR Hematocrit (Bld) [Volume fraction] 27.9 % Low 35-47 [facility] Comment on above: Performed By: #### C BCA #### [facility] ([facility]) [address] [place] [address] VIR Hemoglobin (Bld) [Mass/Vol] 9.1 g/dL Low 11.7-15.5 [facility] Comment on above: Performed By: #### C BCA #### [facility] ([facility]) [address] [place] [address] VIR MCH (RBC) [Entitic mass] 28.7 pg Normal 27-34 [facility] Comment on above: Performed By: #### C BCA #### [facility] ([facility]) [address] [place] [address] VIR MCHC (RBC) [Mass/Vol] 32.5 g/dL Normal 32-36 [facility] Comment on above: Performed By: #### C BCA #### [facility] ([facility]) [address] [place] [address] VIR MCV (RBC) [Entitic vol] 88 fL Normal 80-100 [facility] Comment on above: Performed By: #### C BCA #### [facility] ([facility]) [address] [place] [address] VIR Platelet mean volume (Bld) [Entitic vol] 8.0 fL Normal 7-12 [facility] Comment on above: Performed By: #### C BCA #### [facility] ([facility]) [address] [place] [address] VIR Platelets (Bld) [#/Vol] 177 10*3/uL Normal 150-450 [facility] Comment on above: Performed By: #### C BCA #### [facility] ([facility]) [address] [place] [address] VIR RBC COUNT 3.16 X10E12/L Low 3.8-5.2 [facility] Comment on above: Performed By: #### C BCA #### [facility] ([facility]) [address] [place] [address] VIR WBC (Bld) [#/Vol] 14.6 10*3/uL High 4-11 [facility] Comment on above: Performed By: #### C BCA #### [facility] ([facility]) [address] [place] [address] VIR COMPREHENSIVE METABOLIC PANE Luan 01-05-2025 Albumin [Mass/Vol] 3.2 g/dL Normal 3.2-5.3 [facility] Comment on above: Performed By: #### C MP ####[facility] ([facility])[address], [place] [address] VIR ALP [Catalytic activity/Vol] 50 U/L Normal 39-130 [facility] Comment on above: Performed By: #### C MP ####[facility] ([facility])[address], [place] [address] VIR ALT [Catalytic activity/Vol] 29 U/L Normal <=31 [facility] Comment on above: Performed By: #### C MP ####[facility] ([facility])[address], [place] [address] VIR Anion gap [Moles/Vol] 5 mmol/L Normal 5-15 [facility] Comment on above: Performed By: #### C MP ####[facility] ([facility])[address], [place] [address] VIR AST [Catalytic activity/Vol] 19 U/L Normal <=41 [facility] Comment on above: Performed By: #### C MP ####[facility] ([facility])[address], [place] [address] VIR Bilirubin [Mass/Vol] 0.3 mg/dL Normal 0.3-1.2 [facility] Comment on above: Performed By: #### C MP ####[facility] ([facility])[address], [place] [address] VIR Calcium [Mass/Vol] 8.8 mg/dL Normal 8.5-10.5 [facility] Comment on above: Performed By: #### C MP ####[facility] ([facility])[address], [place] [address] VIR Chloride [Moles/Vol] 102 mmol/L Normal 98-109 [facility] Comment on above: Performed By: #### C MP ####[facility] ([facility])[address], [place] [address] VIR CO2 [Moles/Vol] 33 mmol/L High 22-32 [facility] Comment on above: Performed By: #### C MP ####[facility] ([facility])[address], [place] [address] VIR Creatinine [Mass/Vol] 0.83 mg/dL Normal 0.40-1.00 [facility] Comment on above: Result Comment: METH OD TRACEABLE TO IDMS STANDARD Performed By: #### C MP ####[facility] ([facility])[address], [place] [address] VIR GFR/1.73 sq M.predicted among non-blacks MDRD (S/P/Bld) [Vol rate/Area] 87 mL/min/{1.73_m2} Normal >=60 [facility] Comment on above: Result Comment: Repo rted eGFR is based on the CKD-EPI 2020 equation that does not use a race coefficient. Performed By: #### C MP ####[facility] ([facility])[address], [place] [address] VIR Glucose [Mass/Vol] 118 mg/dL High 65-99 [facility] Comment on above: Performed By: #### C MP ####[facility] ([facility])[address], [place] [address] VIR Potassium [Moles/Vol] 4.2 mmol/L Normal 3.5-5.0 [facility] Comment on above: Performed By: #### C MP ####[facility] ([facility])[address], [place] [address] VIR Protein [Mass/Vol] 5.1 g/dL Low 6.0-8.0 [facility] Comment on above: Performed By: #### C MP ####[facility] ([facility])[address] [facility] [address] [address] VIR Sodium [Moles/Vol] 140 mmol/L Normal 134-146 [facility] Comment on above: Performed By: #### C MP ####[facility] ([facility])[address] [facility] [address], [place] [address] VIR Urea nitrogen [Mass/Vol] 21 mg/dL Normal 5-23 [facility] Comment on above: Performed By: #### C MP ####[facility] ([facility])[address] [facility] [address], [place] [address] VIR FIBRINOGENon 01-05-2025 FIBRINOGEN 194 mg/dL Normal 190-480 [facility] Comment on above: Performed By: #### C BCA #### [facility] ([facility]) [address] [place] [address] VIR IONIZED CALCIUMon 01-05-2025 IONIZED CALCIUM - ICAN 5.0 mg/dL Normal 4.5-5.3 [facility] Comment on above: Performed By: #### I CA ####[facility] ([facility])[address] [facility] [address], [place] [address] VIR CBC WITH AUTO DIFFERENTIALon 01-04-2025 Band form neutrophils/100 WBC (Bld) 2 % Normal [facility] Comment on above: Result Comment: This is an appended report. These results have been appended to a previously preliminary verified report. Performed By: #### C BCA #### [facility] ([facility]) [address] [place] [address] VIR CELLAVISION DIFFERENTIAL TYPE MANUAL DIFFERENTIAL Normal [facility] Comment on above: Result Comment: This is an appended report. These results have been appended to a previously preliminary verified report. Performed By: #### C BCA #### [facility] ([facility]) [address] [place] [address] VIR CELLAVISION LYMPHOCYTES ABSOLUTE COUNT (10*3/UL) BY MANUAL COUNT 2.7 10*3/uL Normal [facility] Comment on above: Result Comment: This is an appended report. These results have been appended to a previously preliminary verified report. Performed By: #### C BCA #### [facility] ([facility]) [address] [place] [address] VIR CELLAVISION LYMPHOCYTES RELATIVE PERCENT BY MANUAL COUNT 18 % Normal [facility] Comment on above: Result Comment: This is an appended report. These results have been appended to a previously preliminary verified report. Performed By: #### C BCA #### [facility] ([facility]) [address] [place] [address] VIR CELLAVISION METAMYELOCYTES RELATIVE PERCENT BY MANUAL COUNT 2 % Normal [facility] Comment on above: Result Comment: This is an appended report. These results have been appended to a previously preliminary verified report. Performed By: #### C BCA #### [facility] ([facility]) [address] [place] [address] VIR CELLAVISION MONOCYTES ABSOLUTE COUNT (10*3/UL) IN BLOOD BY MANUAL COUNT 0.1 10*3/uL Normal [facility] Comment on above: Result Comment: This is an appended report. These results have been appended to a previously preliminary verified report. Performed By: #### C BCA #### [facility] ([facility]) [address] [place] [address] VIR CELLAVISION MONOCYTES RELATIVE PERCENT BY MANUAL COUNT 1 % Normal [facility] Comment on above: Result Comment: This is an appended report. These results have been appended to a previously preliminary verified report. Performed By: #### C BCA #### [facility] ([facility]) [address] [place] [address] VIR CELLAVISION NEUTROPHILS ABSOLUTE COUNT BY MANUAL COUNT 11.8 10*3/uL Normal [facility] Comment on above: Result Comment: This is an appended report. These results have been appended to a previously preliminary verified report. Performed By: #### C BCA #### [facility] ([facility]) [address] [place] [address] VIR CELLAVISION NEUTROPHILS RELATIVE PERCENT BY MANUAL COUNT 77 % Normal [facility] Comment on above: Result Comment: This is an appended report. These results have been appended to a previously preliminary verified report. Performed By: #### C BCA #### [facility] LABORATORY ([facility]) [address] [place] [address] VIR CELLAVISION NUCLEATED RED BLOOD CELLS IN BLOOD BY LIGHT MICROSCOPY 2 Normal [facility] Comment on above: Result Comment: This is an appended report. These results have been appended to a previously preliminary verified report. Performed By: #### C BCA #### [facility] ([facility]) [address] [place] [address] VIR CELLAVISION POLYCHROMASIA IN BLOOD BY LIGHT MICROSCOPY 1+ Normal [facility] Comment on above: Result Comment: This is an appended report. These results have been appended to a previously preliminary verified report. Performed By: #### C BCA #### [facility] ([facility]) [address] [place] [address] VIR CELLAVISION RBC FRAGMENTS 1+ Normal [facility] Comment on above: Result Comment: This is an appended report. These results have been appended to a previously preliminary verified report. Performed By: #### C BCA #### [facility] ([facility]) [address] [place] [address] VIR Erythrocyte distribution width (RBC) [Ratio] 16.4 % High 11.5-15 [facility] Comment on above: Performed By: #### C BCA #### [facility] ([facility]) [address] [place] [address] VIR Hematocrit (Bld) [Volume fraction] 28.3 % Low 35-47 [facility] Comment on above: Performed By: #### C BCA #### [facility] ([facility]) [address] [place] [address] VIR Hemoglobin (Bld) [Mass/Vol] 9.3 g/dL Low 11.7-15.5 [facility] Comment on above: Performed By: #### C BCA #### [facility] ([facility]) [address] [place] [address] VIR MCH (RBC) [Entitic mass] 29.2 pg Normal 27-34 [facility] Comment on above: Performed By: #### C BCA #### [facility] ([facility]) [address] [place] [address] VIR MCHC (RBC) [Mass/Vol] 33.0 g/dL Normal 32-36 [facility] Comment on above: Performed By: #### C BCA #### [facility] ([facility]) [address] [place] [address] VIR MCV (RBC) [Entitic vol] 89 fL Normal 80-100 [facility] Comment on above: Performed By: #### C BCA #### [facility] ([facility]) [address] [place] [address] VIR Platelet mean volume (Bld) [Entitic vol] 8.4 fL Normal 7-12 [facility] Comment on above: Performed By: #### C BCA #### [facility] ([facility]) [address] [place] [address] VIR Platelets (Bld) [#/Vol] 163 10*3/uL Normal 150-450 [facility] Comment on above: Performed By: #### C BCA #### [facility] ([facility]) [address] [place] [address] VIR RBC COUNT 3.20 X10E12/L Low 3.8-5.2 [facility] Comment on above: Performed By: #### C BCA #### [facility] ([facility]) [address] [place] [address] VIR WBC (Bld) [#/Vol] 14.9 10*3/uL High 4-11 [facility] Comment on above: Performed By: #### C BCA #### [facility] ([facility]) [address] [place] [address] VIR COMPREHENSIVE METABOLIC PANE Luan 01-04-2025 Albumin [Mass/Vol] 3.3 g/dL Normal 3.2-5.3 [facility] Comment on above: Performed By: #### C BCA #### [facility] ([facility]) [address] [place] [address] VIR ALP [Catalytic activity/Vol] 49 U/L Normal 39-130 [facility] Comment on above: Performed By: #### C BCA #### [facility] ([facility]) [address] [place] [address] VIR ALT [Catalytic activity/Vol] 19 U/L Normal <=31 [facility] Comment on above: Performed By: #### C BCA #### [facility] ([facility]) [address] [place] [address] VIR Anion gap [Moles/Vol] 5 mmol/L Normal 5-15 [facility] Comment on above: Performed By: #### C BCA #### [facility] ([facility]) [address] [place] [address] VIR AST [Catalytic activity/Vol] 15 U/L Normal <=41 [facility] Comment on above: Performed By: #### C BCA #### [facility] ([facility]) [address] [place] [address] VIR Bilirubin [Mass/Vol] 0.3 mg/dL Normal 0.3-1.2 [facility] Comment on above: Performed By: #### C BCA #### [facility] ([facility]) [address] [place] [address] VIR Calcium [Mass/Vol] 8.9 mg/dL Normal 8.5-10.5 [facility] Comment on above: Performed By: #### C BCA #### [facility] ([facility]) [address] [place] [address] VIR Chloride [Moles/Vol] 103 mmol/L Normal 98-109 [facility] Comment on above: Performed By: #### C BCA #### [facility] ([facility]) [address] [place] [address] VIR CO2 [Moles/Vol] 31 mmol/L Normal 22-32 [facility] Comment on above: Performed By: #### C BCA #### [facility] ([facility]) [address] [place] [address] VIR Creatinine [Mass/Vol] 0.97 mg/dL Normal 0.40-1.00 [facility] Comment on above: Result Comment: METH OD TRACEABLE TO IDMS STANDARD Performed By: #### C BCA #### [facility] ([facility]) [address] [place] [address] VIR GFR/1.73 sq M.predicted among non-blacks MDRD (S/P/Bld) [Vol rate/Area] 73 mL/min/{1.73_m2} Normal >=60 [facility] Comment on above: Result Comment: Repo rted eGFR is based on the CKD-EPI 2020 equation that does not use a race coefficient. Performed By: #### C BCA #### [facility] ([facility]) [address] [place] [address] VIR Glucose [Mass/Vol] 92 mg/dL Normal 65-99 [facility] Comment on above: Performed By: #### C BCA #### [facility] ([facility]) [address] [place] [address] VIR Potassium [Moles/Vol] 4.0 mmol/L Normal 3.5-5.0 [facility] Comment on above: Performed By: #### C BCA #### [facility] ([facility]) [address] [place] [address] VIR Protein [Mass/Vol] 5.1 g/dL Low 6.0-8.0 [facility] Comment on above: Performed By: #### C BCA #### [facility] ([facility]) [address] [place] [address] VIR Sodium [Moles/Vol] 139 mmol/L Normal 134-146 [facility] Comment on above: Performed By: #### C BCA #### [facility] ([facility]) [address] [place] [address] VIR Urea nitrogen [Mass/Vol] 21 mg/dL Normal 5-23 [facility] Comment on above: Performed By: #### C BCA #### [facility] ([facility]) [address] [place] [address] VIR FIBRINOGENon 01-04-2025 FIBRINOGEN 205 mg/dL Normal 190-480 [facility] Comment on above: Performed By: #### C BCA #### [facility] ([facility]) [address] [place] [address] VIR IONIZED CALCIUMon 01-04-2025 IONIZED CALCIUM - ICAN 4.8 mg/dL Normal 4.5-5.3 [facility] Comment on above: Performed By: #### C BCA #### [facility] ([facility]) [address] [place] [address] VIR LDHon 01-04-2025 LDH 173 U/L Normal 100-235 [facility] Comment on above: Performed By: #### C BCA #### [facility] ([facility]) [address] [place] [address] VIR CBC WITH AUTO DIFFERENTIALon 01-03-2025 Band form neutrophils/100 WBC (Bld) 4 % Normal [facility] Comment on above: Result Comment: This is an appended report. These results have been appended to a previously preliminary verified report. Performed By: #### L IPR #### [facility] ([facility]) [address] [place] [address] VIR CELLAVISION DIFFERENTIAL TYPE MANUAL DIFFERENTIAL Normal [facility] Comment on above: Result Comment: This is an appended report. These results have been appended to a previously preliminary verified report. Performed By: #### L IPR #### [facility] ([facility]) [address] [place] [address] VIR CELLAVISION LYMPHOCYTES ABSOLUTE COUNT (10*3/UL) BY MANUAL COUNT 0.3 10*3/uL Normal [facility] Comment on above: Result Comment: This is an appended report. These results have been appended to a previously preliminary verified report. Performed By: #### L IPR #### [facility] ([facility]) [address] [place] [address] VIR CELLAVISION LYMPHOCYTES RELATIVE PERCENT BY MANUAL COUNT 2 % Normal [facility] Comment on above: Result Comment: This is an appended report. These results have been appended to a previously preliminary verified report. Performed By: #### L IPR #### [facility] ([facility]) [address] [place] [address] VIR CELLAVISION MONOCYTES ABSOLUTE COUNT (10*3/UL) IN BLOOD BY MANUAL COUNT 0.6 10*3/uL Normal [facility] Comment on above: Result Comment: This is an appended report. These results have been appended to a previously preliminary verified report. Performed By: #### L IPR #### [facility] ([facility]) [address] [place] [address] VIR CELLAVISION MONOCYTES RELATIVE PERCENT BY MANUAL COUNT 4 % Normal [facility] Comment on above: Result Comment: This is an appended report. These results have been appended to a previously preliminary verified report. Performed By: #### L IPR #### [facility] ([facility]) [address] [place] [address] VIR CELLAVISION MYELOCYTE RELATIVE PERCENT BY MANUAL COUNT 2 % Normal [facility] Comment on above: Result Comment: This is an appended report. These results have been appended to a previously preliminary verified report. Performed By: #### L IPR #### [facility] ([facility]) [address] [place] [address] VIR CELLAVISION NEUTROPHILS ABSOLUTE COUNT BY MANUAL COUNT 14.5 10*3/uL Normal [facility] Comment on above: Result Comment: This is an appended report. These results have been appended to a previously preliminary verified report. Performed By: #### L IPR #### [facility] ([facility]) [address] [place] [address] VIR CELLAVISION NEUTROPHILS RELATIVE PERCENT BY MANUAL COUNT 88 % Normal [facility] Comment on above: Result Comment: This is an appended report. These results have been appended to a previously preliminary verified report. Performed By: #### L IPR #### [facility] ([facility]) [address] [place] [address] VIR CELLAVISION POLYCHROMASIA IN BLOOD BY LIGHT MICROSCOPY 1+ Normal [facility] Comment on above: Result Comment: This is an appended report. These results have been appended to a previously preliminary verified report. Performed By: #### L IPR #### [facility] ([facility]) [address] [place] [address] VIR Erythrocyte distribution width (RBC) [Ratio] 16.1 % High 11.5-15 [facility] Comment on above: Performed By: #### L IPR #### [facility] ([facility]) [address] [place] [address] VIR Hematocrit (Bld) [Volume fraction] 28.5 % Low 35-47 [facility] Comment on above: Performed By: #### L IPR #### [facility] ([facility]) [address] [place] [address] VIR Hemoglobin (Bld) [Mass/Vol] 9.4 g/dL Low 11.7-15.5 [facility] Comment on above: Performed By: #### L IPR #### [facility] ([facility]) [address] [place] [address] VIR MCH (RBC) [Entitic mass] 28.9 pg Normal 27-34 [facility] Comment on above: Performed By: #### L IPR #### [facility] ([facility]) [address] [place] [address] VIR MCHC (RBC) [Mass/Vol] 33.0 g/dL Normal 32-36 [facility] Comment on above: Performed By: #### L IPR #### [facility] ([facility]) [address] [place] [address] VIR MCV (RBC) [Entitic vol] 88 fL Normal 80-100 [facility] Comment on above: Performed By: #### L IPR #### [facility] ([facility]) [address] [place] [address] VIR Platelet mean volume (Bld) [Entitic vol] 8.6 fL Normal 7-12 [facility] Comment on above: Performed By: #### L IPR #### [facility] ([facility]) [address] [place] [address] VIR Platelets (Bld) [#/Vol] 142 10*3/uL Low 150-450 [facility] Comment on above: Performed By: #### L IPR #### [facility] ([facility]) [address] [place] [address] VIR RBC COUNT 3.26 X10E12/L Low 3.8-5.2 [facility] Comment on above: Performed By: #### L IPR #### [facility] ([facility]) [address] [place] [address] VIR WBC (Bld) [#/Vol] 15.7 10*3/uL High 4-11 [facility] Comment on above: Performed By: #### L IPR #### [facility] ([facility]) [address] [place] [address] VIR COMPREHENSIVE METABOLIC PANE Luan 01-03-2025 Albumin [Mass/Vol] 3.2 g/dL Normal 3.2-5.3 [facility] Comment on above: Performed By: #### C BCA #### [facility] ([facility]) [address] [place] [address] VIR ALP [Catalytic activity/Vol] 52 U/L Normal 39-130 [facility] Comment on above: Performed By: #### C BCA #### [facility] ([facility]) [address] [place] [address] VIR ALT [Catalytic activity/Vol] 18 U/L Normal <=31 [facility] Comment on above: Performed By: #### C BCA #### [facility] ([facility]) [address] [place] [address] VIR Anion gap [Moles/Vol] 3 mmol/L Low 5-15 [facility] Comment on above: Performed By: #### C BCA #### [facility] ([facility]) [address] [place] [address] VIR AST [Catalytic activity/Vol] 14 U/L Normal <=41 [facility] Comment on above: Performed By: #### C BCA #### [facility] ([facility]) [address] [place] [address] VIR Bilirubin [Mass/Vol] 0.3 mg/dL Normal 0.3-1.2 [facility] Comment on above: Performed By: #### C BCA #### [facility] ([facility]) [address] [place] [address] VIR Calcium [Mass/Vol] 9.0 mg/dL Normal 8.5-10.5 [facility] Comment on above: Performed By: #### C BCA #### [facility] ([facility]) [address] [place] [address] VIR Chloride [Moles/Vol] 104 mmol/L Normal 98-109 [facility] Comment on above: Performed By: #### C BCA #### [facility] ([facility]) [address] [place] [address] VIR CO2 [Moles/Vol] 30 mmol/L Normal 22-32 [facility] Comment on above: Performed By: #### C BCA #### [facility] ([facility]) [address] [place] [address] VIR Creatinine [Mass/Vol] 0.93 mg/dL Normal 0.40-1.00 [facility] Comment on above: Result Comment: METH OD TRACEABLE TO IDMS STANDARD Performed By: #### C BCA #### [facility] ([facility]) [address] [place] [address] VIR GFR/1.73 sq M.predicted among non-blacks MDRD (S/P/Bld) [Vol rate/Area] 76 mL/min/{1.73_m2} Normal >=60 [facility] Comment on above: Result Comment: Repo rted eGFR is based on the CKD-EPI 2020 equation that does not use a race coefficient. Performed By: #### C BCA #### [facility] ([facility]) [address] [place] [address] VIR Glucose [Mass/Vol] 127 mg/dL High 65-99 [facility] Comment on above: Performed By: #### C BCA #### [facility] ([facility]) [address] [place] [address] VIR Potassium [Moles/Vol] 4.2 mmol/L Normal 3.5-5.0 [facility] Comment on above: Performed By: #### C BCA #### [facility] ([facility]) [address] [place] [address] VIR Protein [Mass/Vol] 5.2 g/dL Low 6.0-8.0 [facility] Comment on above: Performed By: #### C BCA #### [facility] ([facility]) [address] [place] [address] VIR Sodium [Moles/Vol] 137 mmol/L Normal 134-146 [facility] Comment on above: Performed By: #### C BCA #### [facility] ([facility]) [address] [place] [address] VIR Urea nitrogen [Mass/Vol] 20 mg/dL Normal 5-23 [facility] Comment on above: Performed By: #### C BCA #### [facility] ([facility]) [address] [place] [address] VIR FIBRINOGENon 01-03-2025 FIBRINOGEN 205 mg/dL Normal 190-480 [facility] Comment on above: Performed By: #### L IPR #### [facility] ([facility]) [address] [place] [address] VIR HEPARIN ANTI XA, UNFRACTIONA TEDon 01-03-2025 ANTI XA UFH 0.68 IU/mL Normal 0.30-0.70 [facility] Comment on above: Result Comment: Opti mal time for testing is 6 hrs post dosage This test is specific for monitoring patients on UFH, and is not recommended for use with other Anti-Xa medications. Performed By: #### C BCA #### [facility] ([facility]) [address] [place] [address] VIR ANTI XA UFH 0.93 IU/mL Critically high 0.30-0.[address] [facility] Comment on above: Result Comment: Opti mal time for testing is 6 hrs post dosage This test is specific for monitoring patients on UFH, and is not recommended for use with other Anti-Xa medications. Performed By: #### L IPR #### [facility] ([facility]) [address] [place] [address] VIR ANTI XA UFH 0.64 IU/mL Normal 0.30-0.70 [facility] Comment on above: Result Comment: Opti mal time for testing is 6 hrs post dosage This test is specific for monitoring patients on UFH, and is not recommended for use with other Anti-Xa medications. Performed By: #### L IPR #### [facility] ([facility]) [address] [place] [address] VIR IONIZED CALCIUMon 01-03-2025 IONIZED CALCIUM - ICAN 5.1 mg/dL Normal 4.5-5.3 [facility] Comment on above: Performed By: #### L IPR #### [facility] ([facility]) [address] [place] [address] VIR LDHon 01-03-2025 LDH 153 U/L Normal 100-235 [facility] Comment on above: Performed By: #### C BCA #### [facility] ([facility]) [address] [place] [address] VIR CBC WITH AUTO DIFFERENTIALon 01-02-2025 Band form neutrophils/100 WBC (Bld) 1 % Normal [facility] Comment on above: Result Comment: This is an appended report. These results have been appended to a previously preliminary verified report. Performed By: #### C MP #### [facility] ([facility]) [address] [place] [address] VIR CELLAVISION DIFFERENTIAL TYPE CELLAVISION DIFFERENTIAL Normal [facility] Comment on above: Result Comment: This is an appended report. These results have been appended to a previously preliminary verified report. Performed By: #### C MP #### [facility] ([facility]) [address] [place] [address] VIR CELLAVISION LYMPHOCYTES ABSOLUTE COUNT (10*3/UL) BY MANUAL COUNT 3.9 10*3/uL Normal [facility] Comment on above: Result Comment: This is an appended report. These results have been appended to a previously preliminary verified report. Performed By: #### C MP #### [facility] ([facility]) [address] [place] [address] VIR CELLAVISION LYMPHOCYTES RELATIVE PERCENT BY MANUAL COUNT 23 % Normal [facility] Comment on above: Result Comment: This is an appended report. These results have been appended to a previously preliminary verified report. Performed By: #### C MP #### [facility] ([facility]) [address] [place] [address] VIR CELLAVISION METAMYELOCYTES RELATIVE PERCENT BY MANUAL COUNT 1 % Normal [facility] Comment on above: Result Comment: This is an appended report. These results have been appended to a previously preliminary verified report. Performed By: #### C MP #### [facility] ([facility]) [address] [place] [address] VIR CELLAVISION MONOCYTES ABSOLUTE COUNT (10*3/UL) IN BLOOD BY MANUAL COUNT 0.8 10*3/uL Normal [facility] Comment on above: Result Comment: This is an appended report. These results have been appended to a previously preliminary verified report. Performed By: #### C MP #### [facility] ([facility]) [address] [place] [address] VIR CELLAVISION MONOCYTES RELATIVE PERCENT BY MANUAL COUNT 5 % Normal [facility] Comment on above: Result Comment: This is an appended report. These results have been appended to a previously preliminary verified report. Performed By: #### C MP #### [facility] ([facility]) [address] [address] [place] [address] VIR CELLAVISION MYELOCYTE RELATIVE PERCENT BY MANUAL COUNT 2 % Normal [facility] Comment on above: Result Comment: This is an appended report. These results have been appended to a previously preliminary verified report. Performed By: #### C MP #### [facility] ([facility]) [address] [place] [address] VIR CELLAVISION NEUTROPHILS ABSOLUTE COUNT BY MANUAL COUNT 11.7 10*3/uL Normal [facility] Comment on above: Result Comment: This is an appended report. These results have been appended to a previously preliminary verified report. Performed By: #### C MP #### [facility] ([facility]) [address] [place] [address] VIR CELLAVISION NEUTROPHILS RELATIVE PERCENT BY MANUAL COUNT 68 % Normal [facility] Comment on above: Result Comment: This is an appended report. These results have been appended to a previously preliminary verified report. Performed By: #### C MP #### [facility] ([facility]) [address] [place] [address] VIR CELLAVISION POLYCHROMASIA IN BLOOD BY LIGHT MICROSCOPY 1+ Normal [facility] Comment on above: Result Comment: This is an appended report. These results have been appended to a previously preliminary verified report. Performed By: #### C MP #### [facility] ([facility]) [address] [place] [address] VIR CELLAVISION RBC FRAGMENTS 1+ Normal [facility] Comment on above: Result Comment: This is an appended report. These results have been appended to a previously preliminary verified report. Performed By: #### C MP #### [facility] ([facility]) [address] [place] [address] VIR Erythrocyte distribution width (RBC) [Ratio] 15.7 % High 11.5-15 [facility] Comment on above: Performed By: #### C MP #### [facility] ([facility]) [address] [place] [address] VIR Hematocrit (Bld) [Volume fraction] 28.9 % Low 35-47 [facility] Comment on above: Performed By: #### C MP #### [facility] ([facility]) [address] [place] [address] VIR Hemoglobin (Bld) [Mass/Vol] 9.5 g/dL Low 11.7-15.5 [facility] Comment on above: Performed By: #### C MP #### [facility] ([facility]) [address] [place] [address] VIR MCH (RBC) [Entitic mass] 29.0 pg Normal 27-34 [facility] Comment on above: Performed By: #### C MP #### [facility] ([facility]) [address] [place] [address] VIR MCHC (RBC) [Mass/Vol] 33.0 g/dL Normal 32-36 [facility] Comment on above: Performed By: #### C MP #### [facility] ([facility]) [address] [place] [address] VIR MCV (RBC) [Entitic vol] 88 fL Normal 80-100 [facility] Comment on above: Performed By: #### C MP #### [facility] ([facility]) [address] [place] [address] VIR Platelet mean volume (Bld) [Entitic vol] 9.2 fL Normal 7-12 [facility] Comment on above: Performed By: #### C MP #### [facility] ([facility]) [address] [place] [address] VIR Platelets (Bld) [#/Vol] 122 10*3/uL Low 150-450 [facility] Comment on above: Performed By: #### C MP #### [facility] ([facility]) [address] [place] [address] VIR RBC COUNT 3.29 X10E12/L Low 3.8-5.2 [facility] Comment on above: Performed By: #### C MP #### [facility] ([facility]) [address] [place] [address] VIR WBC (Bld) [#/Vol] 16.8 10*3/uL High 4-11 [facility] Comment on above: Performed By: #### C MP #### [facility] ([facility]) [address] [place] [address] VIR COMPREHENSIVE METABOLIC PANE Luan 01-02-2025 Albumin [Mass/Vol] 3.3 g/dL Normal 3.2-5.3 [facility] Comment on above: Performed By: #### C MP #### [facility] ([facility]) [address] [place] [address] VIR ALP [Catalytic activity/Vol] 49 U/L Normal 39-130 [facility] Comment on above: Performed By: #### C MP #### [facility] ([facility]) [address] [place] [address] VIR ALT [Catalytic activity/Vol] 29 U/L Normal <=31 [facility] Comment on above: Performed By: #### C MP #### [facility] ([facility]) [address] [place] [address] VIR Anion gap [Moles/Vol] 5 mmol/L Normal 5-15 [facility] Comment on above: Performed By: #### C MP #### [facility] ([facility]) [address] [place] [address] VIR AST [Catalytic activity/Vol] 19 U/L Normal <=41 [facility] Comment on above: Performed By: #### C MP #### [facility] ([facility]) [address] [place] [address] VIR Bilirubin [Mass/Vol] 0.3 mg/dL Normal 0.3-1.2 [facility] Comment on above: Performed By: #### C MP #### [facility] ([facility]) [address] [place] [address] VIR Calcium [Mass/Vol] 9.0 mg/dL Normal 8.5-10.5 [facility] Comment on above: Performed By: #### C MP #### [facility] ([facility]) [address] [place] [address] VIR Chloride [Moles/Vol] 101 mmol/L Normal 98-109 [facility] Comment on above: Performed By: #### C MP #### [facility] ([facility]) [address] [place] [address] VIR CO2 [Moles/Vol] 33 mmol/L High 22-32 [facility] Comment on above: Performed By: #### C MP #### [facility] ([facility]) [address] [place] [address] VIR Creatinine [Mass/Vol] 1.06 mg/dL High 0.40-1.00 [facility] Comment on above: Result Comment: METH OD TRACEABLE TO IDMS STANDARD Performed By: #### C MP #### [facility] ([facility]) [address] [place] [address] VIR GFR/1.73 sq M.predicted among non-blacks MDRD (S/P/Bld) [Vol rate/Area] 65 mL/min/{1.73_m2} Normal >=60 [facility] Comment on above: Result Comment: Repo rted eGFR is based on the CKD-EPI 2020 equation that does not use a race coefficient. Performed By: #### C MP #### [facility] ([facility]) [address] [place] [address] VIR Glucose [Mass/Vol] 114 mg/dL High 65-99 [facility] Comment on above: Performed By: #### C MP #### [facility] ([facility]) [address] [place] [address] VIR Potassium [Moles/Vol] 3.9 mmol/L Normal 3.5-5.0 [facility] Comment on above: Performed By: #### C MP #### [facility] ([facility]) [address] [place] [address] VIR Protein [Mass/Vol] 5.3 g/dL Low 6.0-8.0 [facility] Comment on above: Performed By: #### C MP #### [facility] ([facility]) [address] [place] [address] VIR Sodium [Moles/Vol] 139 mmol/L Normal 134-146 [facility] Comment on above: Performed By: #### C MP #### [facility] ([facility]) [address] [place] [address] VIR Urea nitrogen [Mass/Vol] 18 mg/dL Normal 5-23 [facility] Comment on above: Performed By: #### C MP #### [facility] ([facility]) [address] [place] [address] VIR FIBRINOGENon 01-02-2025 FIBRINOGEN 189 mg/dL Low 190-480 [facility] Comment on above: Performed By: #### C MP #### [facility] ([facility]) [address] [place] [address] VIR HEPARIN ANTI XA, UNFRACTIONA TEDon 01-02-2025 ANTI XA UFH 0.31 IU/mL Normal 0.30-0.70 [facility] Comment on above: Result Comment: Opti mal time for testing is 6 hrs post dosage This test is specific for monitoring patients on UFH, and is not recommended for use with other Anti-Xa medications. Performed By: #### L IPR #### [facility] ([facility]) [address] [place] [address] VIR ANTI XA UFH 0.05 IU/mL Low 0.30-0.70 [facility] Comment on above: Result Comment: Opti mal time for testing is 6 hrs post dosage This test is specific for monitoring patients on UFH, and is not recommended for use with other Anti-Xa medications. Performed By: #### L IPR #### [facility] ([facility]) [address] [place] [address] VIR ANTI XA UFH 0.54 IU/mL Normal 0.30-0.70 [facility] Comment on above: Result Comment: Opti mal time for testing is 6 hrs post dosage This test is specific for monitoring patients on UFH, and is not recommended for use with other Anti-Xa medications. Performed By: #### L IPR #### [facility] ([facility]) [address] [place] [address] VIR ANTI XA UFH 0.87 IU/mL High 0.30-0.70 [facility] Comment on above: Result Comment: Opti mal time for testing is 6 hrs post dosage This test is specific for monitoring patients on UFH, and is not recommended for use with other Anti-Xa medications. Performed By: #### C MP #### [facility] ([facility]) [address] [place] [address] VIR IONIZED CALCIUMon 01-02-2025 IONIZED CALCIUM - ICAN 4.9 mg/dL Normal 4.5-5.3 [facility] Comment on above: Performed By: #### L IPR #### [facility] ([facility]) [address] [place] [address] VIR LDHon 01-02-2025 LDH 151 U/L Normal 100-235 [facility] Comment on above: Performed By: #### L IPR #### [facility] ([facility]) [address] [place] [address] VIR APTTon 01-01-2025 aPTT Coag (Bld) [Time] 25 s Low 26-37 [facility] Comment on above: Performed By: #### C MP #### [facility] ([facility]) [address] [place] [address] VIR CBC WITH AUTO DIFFERENTIALon 05-05-2025 CELLAVISION DIFFERENTIAL TYPE CELLAVISION DIFFERENTIAL Normal [facility] Comment on above: Result Comment: This is an appended report. These results have been appended to a previously preliminary verified report. Performed By: #### C MP #### [facility] ([facility]) [address] [place] [address] VIR CELLAVISION HYPOCHROMIA IN BLOOD BY LIGHT MICROSCOPY 1+ Normal [facility] Comment on above: Result Comment: This is an appended report. These results have been appended to a previously preliminary verified report. Performed By: #### C MP #### [facility] ([facility]) [address] [place] [address] VIR CELLAVISION LYMPHOCYTES ABSOLUTE COUNT (10*3/UL) BY MANUAL COUNT 3.7 10*3/uL Normal [facility] Comment on above: Result Comment: This is an appended report. These results have been appended to a previously preliminary verified report. Performed By: #### C MP #### [facility] ([facility]) [address] [place] [address] VIR CELLAVISION LYMPHOCYTES RELATIVE PERCENT BY MANUAL COUNT 26 % Normal [facility] Comment on above: Result Comment: This is an appended report. These results have been appended to a previously preliminary verified report. Performed By: #### C MP #### [facility] ([facility]) [address] [place] [address] VIR CELLAVISION METAMYELOCYTES RELATIVE PERCENT BY MANUAL COUNT 1 % Normal [facility] Comment on above: Result Comment: This is an appended report. These results have been appended to a previously preliminary verified report. Performed By: #### C MP #### [facility] ([facility]) [address] [place] [address] VIR CELLAVISION MONOCYTES ABSOLUTE COUNT (10*3/UL) IN BLOOD BY MANUAL COUNT 0.4 10*3/uL Normal [facility] Comment on above: Result Comment: This is an appended report. These results have been appended to a previously preliminary verified report. Performed By: #### C MP #### [facility] ([facility]) [address] [place] [address] VIR CELLAVISION MONOCYTES RELATIVE PERCENT BY MANUAL COUNT 3 % Normal [facility] Comment on above: Result Comment: This is an appended report. These results have been appended to a previously preliminary verified report. Performed By: #### C MP #### [facility] ([facility]) [address] [place] [address] VIR CELLAVISION NEUTROPHILS ABSOLUTE COUNT BY MANUAL COUNT 10.4 10*3/uL Normal [facility] Comment on above: Result Comment: This is an appended report. These results have been appended to a previously preliminary verified report. Performed By: #### C MP #### [facility] ([facility]) [address] [place] [address] VIR CELLAVISION NEUTROPHILS RELATIVE PERCENT BY MANUAL COUNT 71 % Normal [facility] Comment on above: Result Comment: This is an appended report. These results have been appended to a previously preliminary verified report. Performed By: #### C MP #### [facility] ([facility]) [address] [place] [address] VIR CELLAVISION NUCLEATED RED BLOOD CELLS IN BLOOD BY LIGHT MICROSCOPY 4 Normal [facility] Comment on above: Result Comment: This is an appended report. These results have been appended to a previously preliminary verified report. Performed By: #### C MP #### [facility] ([facility]) [address] [place] [address] VIR CELLAVISION POLYCHROMASIA IN BLOOD BY LIGHT MICROSCOPY 1+ Normal [facility] Comment on above: Result Comment: This is an appended report. These results have been appended to a previously preliminary verified report. Performed By: #### C MP #### [facility] ([facility]) [address] [place] [address] VIR Erythrocyte distribution width (RBC) [Ratio] 15.6 % High 11.5-15 [facility] Comment on above: Performed By: #### C MP #### [facility] ([facility]) [address] [place] [address] VIR Hematocrit (Bld) [Volume fraction] 30.9 % Low 35-47 [facility] Comment on above: Performed By: #### C MP #### [facility] ([facility]) [address] [place] [address] VIR Hemoglobin (Bld) [Mass/Vol] 10.0 g/dL Low 11.7-15.5 [facility] Comment on above: Performed By: #### C MP #### [facility] ([facility]) [address] [place] [address] VIR MCH (RBC) [Entitic mass] 28.5 pg Normal 27-34 [facility] Comment on above: Performed By: #### C MP #### [facility] ([facility]) [address] [place] [address] VIR MCHC (RBC) [Mass/Vol] 32.4 g/dL Normal 32-36 [facility] Comment on above: Performed By: #### C MP #### [facility] ([facility]) [address] [place] [address] VIR MCV (RBC) [Entitic vol] 88 fL Normal 80-100 [facility] Comment on above: Performed By: #### C MP #### [facility] ([facility]) [address] [place] [address] VIR Platelet mean volume (Bld) [Entitic vol] 8.9 fL Normal 7-12 [facility] Comment on above: Performed By: #### C MP #### [facility] ([facility]) [address] [place] [address] VIR Platelets (Bld) [#/Vol] 103 10*3/uL Low 150-450 [facility] Comment on above: Performed By: #### C MP #### [facility] ([facility]) [address] [place] [address] VIR RBC COUNT 3.51 X10E12/L Low 3.8-5.2 [facility] Comment on above: Performed By: #### C MP #### [facility] ([facility]) [address] [place] [address] VIR WBC (Bld) [#/Vol] 14.7 10*3/uL High 4-11 [facility] Comment on above: Performed By: #### C MP #### [facility] ([facility]) [address] [place] [address] VIR Band form neutrophils/100 WBC (Bld) 3 % Normal [facility] Comment on above: Result Comment: This is an appended report. These results have been appended to a previously preliminary verified report. Performed By: #### H APT #### [facility] ([facility]) [address] [place] [address] VIR CELLAVISION DACROCYTES IN BLOOD BY LIGHT MICROSCOPY 1+ Normal [facility] Comment on above: Result Comment: This is an appended report. These results have been appended to a previously preliminary verified report. Performed By: #### H APT #### [facility] ([facility]) [address] [place] [address] VIR CELLAVISION DIFFERENTIAL TYPE MANUAL DIFFERENTIAL Normal [facility] Comment on above: Result Comment: This is an appended report. These results have been appended to a previously preliminary verified report. Performed By: #### H APT #### [facility] ([facility]) [address] [place] [address] VIR CELLAVISION LYMPHOCYTES ABSOLUTE COUNT (10*3/UL) BY MANUAL COUNT 3.0 10*3/uL Normal [facility] Comment on above: Result Comment: This is an appended report. These results have been appended to a previously preliminary verified report. Performed By: #### H APT #### [facility] ([facility]) [address] [place] [address] VIR CELLAVISION LYMPHOCYTES RELATIVE PERCENT BY MANUAL COUNT 19 % Normal [facility] Comment on above: Result Comment: This is an appended report. These results have been appended to a previously preliminary verified report. Performed By: #### H APT #### [facility] ([facility]) [address] [place] [address] VIR CELLAVISION METAMYELOCYTES RELATIVE PERCENT BY MANUAL COUNT 1 % Normal [facility] Comment on above: Result Comment: This is an appended report. These results have been appended to a previously preliminary verified report. Performed By: #### H APT #### [facility] ([facility]) [address] [place] [address] VIR CELLAVISION MONOCYTES ABSOLUTE COUNT (10*3/UL) IN BLOOD BY MANUAL COUNT 1.2 10*3/uL Normal [facility] Comment on above: Result Comment: This is an appended report. These results have been appended to a previously preliminary verified report. Performed By: #### H APT #### [facility] ([facility]) [address] [place] [address] VIR CELLAVISION MONOCYTES RELATIVE PERCENT BY MANUAL COUNT 8 % Normal [facility] Comment on above: Result Comment: This is an appended report. These results have been appended to a previously preliminary verified report. Performed By: #### H APT #### [facility] ([facility]) [address] [place] [address] VIR CELLAVISION MYELOCYTE RELATIVE PERCENT BY MANUAL COUNT 2 % Normal [facility] Comment on above: Result Comment: This is an appended report. These results have been appended to a previously preliminary verified report. Performed By: #### H APT #### [facility] ([facility]) [address] [place] [address] VIR CELLAVISION NEUTROPHILS ABSOLUTE COUNT BY MANUAL COUNT 10.9 10*3/uL Normal [facility] Comment on above: Result Comment: This is an appended report. These results have been appended to a previously preliminary verified report. Performed By: #### H APT #### [facility] ([facility]) [address] [place] [address] VIR CELLAVISION NEUTROPHILS RELATIVE PERCENT BY MANUAL COUNT 67 % Normal [facility] Comment on above: Result Comment: This is an appended report. These results have been appended to a previously preliminary verified report. Performed By: #### H APT #### [facility] ([facility]) [address] [place] [address] VIR CELLAVISION NUCLEATED RED BLOOD CELLS IN BLOOD BY LIGHT MICROSCOPY 1 Normal [facility] Comment on above: Result Comment: This is an appended report. These results have been appended to a previously preliminary verified report. Performed By: #### H APT #### [facility] ([facility]) [address] [place] [address] VIR CELLAVISION POLYCHROMASIA IN BLOOD BY LIGHT MICROSCOPY 1+ Normal [facility] Comment on above: Result Comment: This is an appended report. These results have been appended to a previously preliminary verified report. Performed By: #### H APT #### [facility] ([facility]) [address] [place] [address] VIR CELLAVISION RBC FRAGMENTS 1+ Normal [facility] Comment on above: Result Comment: This is an appended report. These results have been appended to a previously preliminary verified report. Performed By: #### H APT #### [facility] ([facility]) [address] [place] [address] VIR Erythrocyte distribution width (RBC) [Ratio] 15.6 % High 11.5-15 [facility] Comment on above: Performed By: #### H APT #### [facility] ([facility]) [address] [place] [address] VIR Hematocrit (Bld) [Volume fraction] 30.6 % Low 35-47 [facility] Comment on above: Performed By: #### H APT #### [facility] ([facility]) [address] [place] [address] VIR Hemoglobin (Bld) [Mass/Vol] 9.8 g/dL Low 11.7-15.5 [facility] Comment on above: Performed By: #### H APT #### [facility] [facility] ([facility]) [address] [place] [address] VIR MCH (RBC) [Entitic mass] 28.0 pg Normal 27-34 [facility] Comment on above: Performed By: #### H APT #### [facility] ([facility]) [address] [place] [address] VIR MCHC (RBC) [Mass/Vol] 32.0 g/dL Normal 32-36 [facility] Comment on above: Performed By: #### H APT #### [facility] ([facility]) [address] [place] [address] VIR MCV (RBC) [Entitic vol] 87 fL Normal 80-100 [facility] Comment on above: Performed By: #### H APT #### [facility] ([facility]) [address] [place] [address] VIR Platelet mean volume (Bld) [Entitic vol] 8.7 fL Normal 7-12 [facility] Comment on above: Performed By: #### H APT #### [facility] ([facility]) [address] [place] [address] VIR Platelets (Bld) [#/Vol] 93 10*3/uL Low 150-450 [facility] Comment on above: Performed By: #### H APT #### [facility] ([facility]) [address] [place] [address] VIR RBC COUNT 3.50 X10E12/L Low 3.8-5.2 [facility] Comment on above: Performed By: #### H APT #### [facility] ([facility]) [address] [place] [address] VIR WBC (Bld) [#/Vol] 15.6 10*3/uL High 4-11 [facility] Comment on above: Performed By: #### H APT #### [facility] ([facility]) [address] [place] [address] VIR COMPREHENSIVE METABOLIC PANE Luan 01-01-2025 Albumin [Mass/Vol] 3.3 g/dL Normal 3.2-5.3 [facility] Comment on above: Performed By: #### H APT #### [facility] ([facility]) [address] [place] [address] VIR ALP [Catalytic activity/Vol] 46 U/L Normal 39-130 [facility] Comment on above: Performed By: #### H APT #### [facility] ([facility]) [address] [place] [address] VIR ALT [Catalytic activity/Vol] 17 U/L Normal <=31 [facility] Comment on above: Performed By: #### H APT #### [facility] ([facility]) [address] [place] [address] VIR Anion gap [Moles/Vol] 5 mmol/L Normal 5-15 [facility] Comment on above: Performed By: #### H APT #### [facility] ([facility]) [address] [place] [address] VIR AST [Catalytic activity/Vol] 15 U/L Normal <=41 [facility] Comment on above: Performed By: #### H APT #### [facility] ([facility]) [address] [place] [address] VIR Bilirubin [Mass/Vol] 0.3 mg/dL Normal 0.3-1.2 [facility] Comment on above: Performed By: #### H APT #### [facility] ([facility]) [address] [place] [address] VIR Calcium [Mass/Vol] 9.0 mg/dL Normal 8.5-10.5 [facility] Comment on above: Performed By: #### H APT #### [facility] ([facility]) [address] [place] [address] VIR Chloride [Moles/Vol] 105 mmol/L Normal 98-109 [facility] Comment on above: Performed By: #### H APT #### [facility] ([facility]) [address] [place] [address] VIR CO2 [Moles/Vol] 32 mmol/L Normal 22-32 [facility] Comment on above: Performed By: #### H APT #### [facility] ([facility]) [address] [place] [address] VIR Creatinine [Mass/Vol] 0.91 mg/dL Normal 0.40-1.00 [facility] Comment on above: Result Comment: METH OD TRACEABLE TO IDMS STANDARD Performed By: #### H APT #### [facility] ([facility]) [address] [place] [address] VIR GFR/1.73 sq M.predicted among non-blacks MDRD (S/P/Bld) [Vol rate/Area] 78 mL/min/{1.73_m2} Normal >=60 [facility] Comment on above: Result Comment: Repo rted eGFR is based on the CKD-EPI 2020 equation that does not use a race coefficient. Performed By: #### H APT #### [facility] ([facility]) [address] [place] [address] VIR Glucose [Mass/Vol] 62 mg/dL Low 65-99 [facility] Comment on above: Performed By: #### H APT #### [facility] ([facility]) [address] [place] [address] VIR Potassium [Moles/Vol] 4.0 mmol/L Normal 3.5-5.0 [facility] Comment on above: Performed By: #### H APT #### [facility] ([facility]) [address] [place] [address] VIR Protein [Mass/Vol] 5.4 g/dL Low 6.0-8.0 [facility] Comment on above: Performed By: #### H APT #### [facility] ([facility]) [address] [place] [address] VIR Sodium [Moles/Vol] 142 mmol/L Normal 134-146 [facility] Comment on above: Performed By: #### H APT #### [facility] ([facility]) [address] [place] [address] VIR Urea nitrogen [Mass/Vol] 16 mg/dL Normal 5-23 [facility] Comment on above: Performed By: #### H APT #### [facility] ([facility]) [address] [place] [address] VIR FIBRINOGENon 01-01-2025 FIBRINOGEN 190 mg/dL Normal 190-480 [facility] Comment on above: Performed By: #### H APT #### [facility] ([facility]) [address] [place] [address] VIR HEPARIN ANTI XA, UNFRACTIONA TEDon 01-01-2025 ANTI XA UFH 0.69 IU/mL Normal 0.30-0.70 [facility] Comment on above: Result Comment: Opti mal time for testing is 6 hrs post dosage This test is specific for monitoring patients on UFH, and is not recommended for use with other Anti-Xa medications. Performed By: #### C MP #### [facility] ([facility]) [address] [place] [address] VIR ANTI XA UFH 0.04 IU/mL Low 0.30-0.70 [facility] Comment on above: Result Comment: Opti mal time for testing is 6 hrs post dosage This test is specific for monitoring patients on UFH, and is not recommended for use with other Anti-Xa medications. Performed By: #### C MP #### [facility] ([facility]) [address] [address] VIR HEPATITIS B CORE ANTIBODY, T OTALon 01-01-2025 ANTI HBC Non-Reactive Normal Non-Reactive [facility] Comment on above: Performed By: #### H APT #### [facility] ([facility]) [address] [place] [address] VIR HEPATITIS B SURFACE ANTIBODY QUANTITATIONon 01-01-2025 ANTI HBS QUANT. >^500.0 Normal [facility] Comment on above: Order Comment: Vacci nated: >=10 mIU/mL, Positive (Immune)Unvaccinated: <10 mIU/mL, Negative (Not Immune) Performed By: #### H APT #### [facility] ([facility]) [address] [address] VIR HEPATITIS B SURFACE ANTIGENo n 01-01-2025 HEPATITIS B SURF AG Non-Reactive Normal Non-Reactive [facility] Comment on above: Performed By: #### C MP #### [facility] ([facility]) [address] [address] VIR IONIZED CALCIUMon 01-01-2025 IONIZED CALCIUM - ICAN 5.0 mg/dL Normal 4.5-5.3 [facility] Comment on above: Performed By: #### H APT #### [facility] ([facility]) [address] [address] VIR LDHon 01-01-2025 LDH 182 U/L Normal 100-235 [facility] Comment on above: Performed By: #### H APT #### [facility] ([facility]) [address] [address] VIR PROTIME AND INRon 01-01-2025 INR 1.0 Normal 0.9-1.2 [facility] Comment on above: Performed By: #### C MP #### [facility] ([facility]) [address] [place] [address] VIR PT Coag (PPP) [Time] 11.8 s Normal 9.8-13.2 [facility] Comment on above: Performed By: #### C MP #### [facility] ([facility]) [address] [place] [address] VIR CBC WITH AUTO DIFFERENTIALon 12-31-2024 Band form neutrophils/100 WBC (Bld) 1 % Normal [facility] Comment on above: Result Comment: This is an appended report. These results have been appended to a previously preliminary verified report. Performed By: #### H APT #### [facility] ([facility]) [address] [place] [address] VIR CELLAVISION DIFFERENTIAL TYPE MANUAL DIFFERENTIAL Normal [facility] Comment on above: Result Comment: This is an appended report. These results have been appended to a previously preliminary verified report. Performed By: #### H APT #### [facility] ([facility]) [address] [place] [address] VIR CELLAVISION LYMPHOCYTES ABSOLUTE COUNT (10*3/UL) BY MANUAL COUNT 1.9 10*3/uL Normal [facility] Comment on above: Result Comment: This is an appended report. These results have been appended to a previously preliminary verified report. Performed By: #### H APT #### [facility] ([facility]) [address] [place] [address] VIR CELLAVISION LYMPHOCYTES RELATIVE PERCENT BY MANUAL COUNT 15 % Normal [facility] Comment on above: Result Comment: This is an appended report. These results have been appended to a previously preliminary verified report. Performed By: #### H APT #### [facility] ([facility]) [address] [place] [address] VIR CELLAVISION MONOCYTES ABSOLUTE COUNT (10*3/UL) IN BLOOD BY MANUAL COUNT 0.6 10*3/uL Normal [facility] Comment on above: Result Comment: This is an appended report. These results have been appended to a previously preliminary verified report. Performed By: #### H APT #### [facility] ([facility]) [address] [place] [address] VIR CELLAVISION MONOCYTES RELATIVE PERCENT BY MANUAL COUNT 5 % Normal [facility] Comment on above: Result Comment: This is an appended report. These results have been appended to a previously preliminary verified report. Performed By: #### H APT #### [facility] ([facility]) [address] [place] [address] VIR CELLAVISION NEUTROPHILS ABSOLUTE COUNT BY MANUAL COUNT 10.4 10*3/uL Normal [facility] Comment on above: Result Comment: This is an appended report. These results have been appended to a previously preliminary verified report. Performed By: #### H APT #### [facility] ([facility]) [address] [place] [address] VIR CELLAVISION NEUTROPHILS RELATIVE PERCENT BY MANUAL COUNT 79 % Normal [facility] Comment on above: Result Comment: This is an appended report. These results have been appended to a previously preliminary verified report. Performed By: #### H APT #### [facility] ([facility]) [address] [place] [address] VIR CELLAVISION NUCLEATED RED BLOOD CELLS IN BLOOD BY LIGHT MICROSCOPY 1 Normal [facility] Comment on above: Result Comment: This is an appended report. These results have been appended to a previously preliminary verified report. Performed By: #### H APT #### [facility] ([facility]) [address] [place] [address] VIR CELLAVISION POLYCHROMASIA IN BLOOD BY LIGHT MICROSCOPY 1+ Normal [facility] Comment on above: Result Comment: This is an appended report. These results have been appended to a previously preliminary verified report. Performed By: #### H APT #### [facility] ([facility]) [address] [place] [address] VIR Erythrocyte distribution width (RBC) [Ratio] 15.4 % High 11.5-15 [facility] Comment on above: Performed By: #### H APT #### [facility] ([facility]) [address] [place] [address] VIR Hematocrit (Bld) [Volume fraction] 33.7 % Low 35-47 [facility] Comment on above: Performed By: #### H APT #### [facility] ([facility]) [address] [place] [address] VIR Hemoglobin (Bld) [Mass/Vol] 11.0 g/dL Low 11.7-15.5 [facility] Comment on above: Performed By: #### H APT #### [facility] ([facility]) [address] [place] [address] VIR MCH (RBC) [Entitic mass] 28.0 pg Normal 27-34 [facility] Comment on above: Performed By: #### H APT #### [facility] ([facility]) [address] [place] [address] VIR MCHC (RBC) [Mass/Vol] 32.7 g/dL Normal 32-36 [facility] Comment on above: Performed By: #### H APT #### [facility] ([facility]) [address] [place] [address] VIR MCV (RBC) [Entitic vol] 86 fL Normal 80-100 [facility] Comment on above: Performed By: #### H APT #### [facility] ([facility]) [address] [place] [address] VIR Platelet mean volume (Bld) [Entitic vol] 8.7 fL Normal 7-12 [facility] Comment on above: Performed By: #### H APT #### [facility] ([facility]) [address] [place] [address] VIR Platelets (Bld) [#/Vol] 67 10*3/uL Low 150-450 [facility] Comment on above: Performed By: #### H APT #### [facility] ([facility]) [address] [place] [address] VIR RBC COUNT 3.93 X10E12/L Normal 3.8-5.2 [facility] Comment on above: Performed By: #### H APT #### [facility] ([facility]) [address] [place] [address] VIR WBC (Bld) [#/Vol] 12.9 10*3/uL High 4-11 [facility] Comment on above: Performed By: #### H APT #### [facility] ([facility]) [address] [place] [address] VIR Band form neutrophils/100 WBC (Bld) 4 % Normal [facility] Comment on above: Result Comment: This is an appended report. These results have been appended to a previously preliminary verified report. Performed By: #### T SC #### [facility] ([facility]) [address] [place] [address] VIR CELLAVISION DIFFERENTIAL TYPE MANUAL DIFFERENTIAL Normal [facility] Comment on above: Result Comment: This is an appended report. These results have been appended to a previously preliminary verified report. Performed By: #### T SC #### [facility] ([facility]) [address] [place] [address] VIR CELLAVISION LYMPHOCYTES ABSOLUTE COUNT (10*3/UL) BY MANUAL COUNT 1.8 10*3/uL Normal [facility] Comment on above: Result Comment: This is an appended report. These results have been appended to a previously preliminary verified report. Performed By: #### T SC #### [facility] ([facility]) [address] [place] [address] VIR CELLAVISION LYMPHOCYTES RELATIVE PERCENT BY MANUAL COUNT 17 % Normal [facility] Comment on above: Result Comment: This is an appended report. These results have been appended to a previously preliminary verified report. Performed By: #### T SC #### [facility] ([facility]) [address] [place] [address] VIR CELLAVISION METAMYELOCYTES RELATIVE PERCENT BY MANUAL COUNT 1 % Normal [facility] Comment on above: Result Comment: This is an appended report. These results have been appended to a previously preliminary verified report. Performed By: #### T SC #### [facility] ([facility]) [address] [place] [address] VIR CELLAVISION MONOCYTES ABSOLUTE COUNT (10*3/UL) IN BLOOD BY MANUAL COUNT 0.4 10*3/uL Normal [facility] Comment on above: Result Comment: This is an appended report. These results have been appended to a previously preliminary verified report. Performed By: #### T SC #### [facility] ([facility]) [address] [place] [address] VIR CELLAVISION MONOCYTES RELATIVE PERCENT BY MANUAL COUNT 4 % Normal [facility] Comment on above: Result Comment: This is an appended report. These results have been appended to a previously preliminary verified report. Performed By: #### T SC #### [facility] ([facility]) [address] [place] [address] VIR CELLAVISION NEUTROPHILS ABSOLUTE COUNT BY MANUAL COUNT 8.1 10*3/uL Normal [facility] Comment on above: Result Comment: This is an appended report. These results have been appended to a previously preliminary verified report. Performed By: #### T SC #### [facility] ([facility]) [address] [place] [address] VIR CELLAVISION NEUTROPHILS RELATIVE PERCENT BY MANUAL COUNT 74 % Normal [facility] Comment on above: Result Comment: This is an appended report. These results have been appended to a previously preliminary verified report. Performed By: #### T SC #### [facility] ([facility]) [address] [place] [address] VIR CELLAVISION RBC MORPHOLOGY Normal Normal [facility] Comment on above: Result Comment: This is an appended report. These results have been appended to a previously preliminary verified report. Performed By: #### T SC #### [facility] ([facility]) [address] [place] [address] VIR Erythrocyte distribution width (RBC) [Ratio] 15.5 % High 11.5-15 [facility] Comment on above: Performed By: #### T SC #### [facility] ([facility]) [address] [place] [address] VIR Hematocrit (Bld) [Volume fraction] 30.3 % Low 35-47 [facility] Comment on above: Performed By: #### T SC #### [facility] ([facility]) [address] [place] [address] VIR Hemoglobin (Bld) [Mass/Vol] 10.2 g/dL Low 11.7-15.5 [facility] Comment on above: Performed By: #### T SC #### [facility] ([facility]) [address] [place] [address] VIR MCH (RBC) [Entitic mass] 28.7 pg Normal 27-34 [facility] Comment on above: Performed By: #### T SC #### [facility] ([facility]) [address] [place] [address] VIR MCHC (RBC) [Mass/Vol] 33.7 g/dL Normal 32-36 [facility] Comment on above: Performed By: #### T SC #### [facility] ([facility]) [address] [place] [address] VIR MCV (RBC) [Entitic vol] 85 fL Normal 80-100 [facility] Comment on above: Performed By: #### T SC #### [facility] ([facility]) [address] [place] [address] VIR Platelet mean volume (Bld) [Entitic vol] 8.9 fL Normal 7-12 [facility] Comment on above: Performed By: #### T SC #### [facility] ([facility]) [address] [place] [address] VIR Platelets (Bld) [#/Vol] 52 10*3/uL Low 150-450 [facility] Comment on above: Performed By: #### T SC #### [facility] ([facility]) [address] [place] [address] VIR RBC COUNT 3.55 X10E12/L Low 3.8-5.2 [facility] Comment on above: Performed By: #### T SC #### [facility] ([facility]) [address] [place] [address] VIR WBC (Bld) [#/Vol] 10.4 10*3/uL Normal 4-11 [facility] Comment on above: Performed By: #### T SC #### [facility] ([facility]) [address] [place] [address] VIR COMPREHENSIVE METABOLIC PANE [facility] 12-31-2024 Albumin [Mass/Vol] 4.0 g/dL Normal 3.2-5.3 [facility] Comment on above: Performed By: #### H APT #### [facility] ([facility]) [address] [place] [address] VIR ALP [Catalytic activity/Vol] 51 U/L Normal 39-130 [facility] Comment on above: Performed By: #### H APT #### [facility] ([facility]) [address] [place] [address] VIR ALT [Catalytic activity/Vol] 16 U/L Normal <=31 [facility] Comment on above: Performed By: #### H APT #### [facility] ([facility]) [address] [place] [address] VIR Anion gap [Moles/Vol] 8 mmol/L Normal 5-15 [facility] Comment on above: Performed By: #### H APT #### [facility] ([facility]) [address] [place] [address] VIR AST [Catalytic activity/Vol] 16 U/L Normal <=41 [facility] Comment on above: Performed By: #### H APT #### [facility] ([facility]) [address] [place] [address] VIR Bilirubin [Mass/Vol] 0.4 mg/dL Normal 0.3-1.2 [facility] Comment on above: Performed By: #### H APT #### [facility] ([facility]) [address] [place] [address] VIR Calcium [Mass/Vol] 9.6 mg/dL Normal 8.5-10.5 [facility] Comment on above: Performed By: #### H APT #### [facility] ([facility]) [address] [place] [address] VIR Chloride [Moles/Vol] 105 mmol/L Normal 98-109 [facility] Comment on above: Performed By: #### H APT #### [facility] ([facility]) [address] [place] [address] VIR CO2 [Moles/Vol] 27 mmol/L Normal 22-32 [facility] Comment on above: Performed By: #### H APT #### [facility] ([facility]) [address] [place] [address] VIR Creatinine [Mass/Vol] 1.06 mg/dL High 0.40-1.00 [facility] Comment on above: Result Comment: METH OD TRACEABLE TO IDMS STANDARD Performed By: #### H APT #### [facility] ([facility]) [address] [place] [address] VIR GFR/1.73 sq M.predicted among non-blacks MDRD (S/P/Bld) [Vol rate/Area] 65 mL/min/{1.73_m2} Normal >=60 [facility] Comment on above: Result Comment: Repo rted eGFR is based on the CKD-EPI 2020 equation that does not use a race coefficient. Performed By: #### H APT #### [facility] ([facility]) [address] [place] [address] VIR Glucose [Mass/Vol] 114 mg/dL High 65-99 [facility] Comment on above: Performed By: #### H APT #### [facility] ([facility]) [address] [place] [address] VIR Potassium [Moles/Vol] 4.3 mmol/L Normal 3.5-5.0 [facility] Comment on above: Performed By: #### H APT #### [facility] ([facility]) [address] [place] [address] VIR Protein [Mass/Vol] 6.8 g/dL Normal 6.0-8.0 [facility] Comment on above: Performed By: #### H APT #### [facility] ([facility]) [address] [place] [address] VIR Sodium [Moles/Vol] 140 mmol/L Normal 134-146 [facility] Comment on above: Performed By: #### H APT #### [facility] ([facility]) [address] [place] [address] VIR Urea nitrogen [Mass/Vol] 19 mg/dL Normal 5-23 [facility] Comment on above: Performed By: #### H APT #### [facility] ([facility]) [address] [place] [address] VIR FIBRINOGENon 12-31-2024 FIBRINOGEN 246 mg/dL Normal 190-480 [facility] Comment on above: Performed By: #### T SC #### [facility] ([facility]) [address] [place] [address] VIR IONIZED CALCIUMon 12-31-2024 IONIZED CALCIUM - ICAN 5.2 mg/dL Normal 4.5-5.3 [facility] Comment on above: Performed By: #### T SC #### [facility] ([facility]) [address] [place] [address] VIR TRANSFUSION REACTIONon 12-31 TRANSFUSION REACTION No hemolytic reacti on noted Normal [facility] Comment on above: Performed By: #### T RXN ####[facility] BB - [place] (PTH)[address] [place] [address] VIR CBC WITH AUTO DIFFERENTIALon 12-30-2024 CELLAVISION DIFFERENTIAL TYPE MANUAL DIFFERENTIAL Normal [facility] Comment on above: Result Comment: This is an appended report. These results have been appended to a previously preliminary verified report. Performed By: #### T SC #### [facility] ([facility]) [address] [place] [address] VIR CELLAVISION LYMPHOCYTES ABSOLUTE COUNT (10*3/UL) BY MANUAL COUNT 1.7 10*3/uL Normal [facility] Comment on above: Result Comment: This is an appended report. These results have been appended to a previously preliminary verified report. Performed By: #### T SC #### [facility] ([facility]) [address] [facility] [place] [address] VIR CELLAVISION LYMPHOCYTES RELATIVE PERCENT BY MANUAL COUNT 21 % Normal [facility] Comment on above: Result Comment: This is an appended report. These results have been appended to a previously preliminary verified report. Performed By: #### T SC #### [facility] ([facility]) [address] [place] [address] VIR CELLAVISION MONOCYTES ABSOLUTE COUNT (10*3/UL) IN BLOOD BY MANUAL COUNT 0.3 10*3/uL Normal [facility] Comment on above: Result Comment: This is an appended report. These results have been appended to a previously preliminary verified report. Performed By: #### T SC #### [facility] ([facility]) [address] [place] [address] VIR CELLAVISION MONOCYTES RELATIVE PERCENT BY MANUAL COUNT 4 % Normal [facility] Comment on above: Result Comment: This is an appended report. These results have been appended to a previously preliminary verified report. Performed By: #### T SC #### [facility] ([facility]) [address] [place] [address] VIR CELLAVISION NEUTROPHILS ABSOLUTE COUNT BY MANUAL COUNT 6.2 10*3/uL Normal [facility] Comment on above: Result Comment: This is an appended report. These results have been appended to a previously preliminary verified report. Performed By: #### T SC #### [facility] ([facility]) [address] [place] [address] VIR CELLAVISION NEUTROPHILS RELATIVE PERCENT BY MANUAL COUNT 75 % Normal [facility] Comment on above: Result Comment: This is an appended report. These results have been appended to a previously preliminary verified report. Performed By: #### T SC #### [facility] ([facility]) [address] [place] [address] VIR CELLAVISION NUCLEATED RED BLOOD CELLS IN BLOOD BY LIGHT MICROSCOPY 1 Normal [facility] Comment on above: Result Comment: This is an appended report. These results have been appended to a previously preliminary verified report. Performed By: #### T SC #### [facility] ([facility]) [address] [place] [address] VIR CELLAVISION RBC MORPHOLOGY Normal Normal [facility] Comment on above: Result Comment: This is an appended report. These results have been appended to a previously preliminary verified report. Performed By: #### T SC #### [facility] ([facility]) [address] [place] [address] VIR Erythrocyte distribution width (RBC) [Ratio] 15.5 % High 11.5-15 [facility] Comment on above: Performed By: #### T SC #### [facility] ([facility]) [address] [place] [address] VIR Hematocrit (Bld) [Volume fraction] 30.1 % Low 35-47 [facility] Comment on above: Performed By: #### T SC #### [facility] ([facility]) [address] [place] [address] VIR Hemoglobin (Bld) [Mass/Vol] 9.8 g/dL Low 11.7-15.5 [facility] Comment on above: Performed By: #### T SC #### [facility] ([facility]) [address] [place] [address] VIR MCH (RBC) [Entitic mass] 28.4 pg Normal 27-34 [facility] Comment on above: Performed By: #### T SC #### [facility] ([facility]) [address] [place] [address] VIR MCHC (RBC) [Mass/Vol] 32.4 g/dL Normal 32-36 [facility] Comment on above: Performed By: #### T SC #### [facility] ([facility]) [address] [place] [address] VIR MCV (RBC) [Entitic vol] 87 fL Normal 80-100 [facility] Comment on above: Performed By: #### T SC #### [facility] ([facility]) [address] [place] [address] VIR Platelet mean volume (Bld) [Entitic vol] 8.4 fL Normal 7-12 [facility] Comment on above: Performed By: #### T SC #### [facility] ([facility]) [address] [place] [address] VIR Platelets (Bld) [#/Vol] 54 10*3/uL Low 150-450 [facility] Comment on above: Performed By: #### T SC #### [facility] ([facility]) [address] [place] [address] VIR RBC COUNT 3.45 X10E12/L Low 3.8-5.2 [facility] Comment on above: Performed By: #### T SC #### [facility] ([facility]) [address] [place] [address] VIR WBC (Bld) [#/Vol] 8.2 10*3/uL Normal 4-11 [facility] Comment on above: Performed By: #### T SC #### [facility] ([facility]) [address] [place] [address] VIR CELLAVISION BASOPHILS ABSOLUTE COUNT (10*3/UL) BY MANUAL COUNT 0.1 10*3/uL Normal [facility] Comment on above: Result Comment: This is an appended report. These results have been appended to a previously preliminary verified report. Performed By: #### R ETIC #### [facility] ([facility]) [address] [place] [address] VIR CELLAVISION BASOPHILS RELATIVE PERCENT BY MANUAL COUNT 1 % Normal [facility] Comment on above: Result Comment: This is an appended report. These results have been appended to a previously preliminary verified report. Performed By: #### R ETIC #### [facility] ([facility]) [address] [place] [address] VIR CELLAVISION DIFFERENTIAL TYPE CELLAVISION DIFFERENTIAL Normal [facility] Comment on above: Result Comment: This is an appended report. These results have been appended to a previously preliminary verified report. Performed By: #### R ETIC #### [facility] ([facility]) [address] [place] [address] VIR CELLAVISION EOSINOPHILS ABSOLUTE COUNT (10*3/UL) BY MANUAL COUNT 0.2 10*3/uL Normal [facility] Comment on above: Result Comment: This is an appended report. These results have been appended to a previously preliminary verified report. Performed By: #### R ETIC #### [facility] ([facility]) [address] [place] [address] VIR CELLAVISION EOSINOPHILS PERCENT BY MANUAL COUNT 2 % Normal [facility] Comment on above: Result Comment: This is an appended report. These results have been appended to a previously preliminary verified report. Performed By: #### R ETIC #### [facility] ([facility]) [address] [place] [address] VIR CELLAVISION LYMPHOCYTES ABSOLUTE COUNT (10*3/UL) BY MANUAL COUNT 3.3 10*3/uL Normal [facility] Comment on above: Result Comment: This is an appended report. These results have been appended to a previously preliminary verified report. Performed By: #### R ETIC #### [facility] ([facility]) [address] [place] [address] VIR CELLAVISION LYMPHOCYTES RELATIVE PERCENT BY MANUAL COUNT 30 % Normal [facility] Comment on above: Result Comment: This is an appended report. These results have been appended to a previously preliminary verified report. Performed By: #### R ETIC #### [facility] ([facility]) [address] [place] [address] VIR CELLAVISION METAMYELOCYTES RELATIVE PERCENT BY MANUAL COUNT 2 % Normal [facility] Comment on above: Result Comment: This is an appended report. These results have been appended to a previously preliminary verified report. Performed By: #### R ETIC #### [facility] ([facility]) [address] [place] [address] VIR CELLAVISION MONOCYTES ABSOLUTE COUNT (10*3/UL) IN BLOOD BY MANUAL COUNT 0.1 10*3/uL Normal [facility] Comment on above: Result Comment: This is an appended report. These results have been appended to a previously preliminary verified report. Performed By: #### R ETIC #### [facility] ([facility]) [address] [place] [address] VIR CELLAVISION MONOCYTES RELATIVE PERCENT BY MANUAL COUNT 1 % Normal [facility] Comment on above: Result Comment: This is an appended report. These results have been appended to a previously preliminary verified report. Performed By: #### R ETIC #### [facility] ([facility]) [address] [place] [address] VIR CELLAVISION MYELOCYTE RELATIVE PERCENT BY MANUAL COUNT 1 % Normal [facility] Comment on above: Result Comment: This is an appended report. These results have been appended to a previously preliminary verified report. Performed By: #### R ETIC #### [facility] ([facility]) [address] [place] [address] VIR CELLAVISION NEUTROPHILS ABSOLUTE COUNT BY MANUAL COUNT 7.1 10*3/uL Normal [facility] Comment on above: Result Comment: This is an appended report. These results have been appended to a previously preliminary verified report. Performed By: #### R ETIC #### [facility] ([facility]) [address] [place] [address] VIR CELLAVISION NEUTROPHILS RELATIVE PERCENT BY MANUAL COUNT 64 % Normal [facility] Comment on above: Result Comment: This is an appended report. These results have been appended to a previously preliminary verified report. Performed By: #### R ETIC #### [facility] ([facility]) [address] [place] [address] VIR CELLAVISION NUCLEATED RED BLOOD CELLS IN BLOOD BY LIGHT MICROSCOPY 3 Normal [facility] Comment on above: Result Comment: This is an appended report. These results have been appended to a previously preliminary verified report. Performed By: #### R ETIC #### [facility] ([facility]) [address] [place] [address] VIR CELLAVISION RBC FRAGMENTS 1+ Normal [facility] Comment on above: Result Comment: This is an appended report. These results have been appended to a previously preliminary verified report. Performed By: #### R ETIC #### [facility] ([facility]) [address] [place] [address] VIR Erythrocyte distribution width (RBC) [Ratio] 15.1 % High 11.5-15 [facility] Comment on above: Performed By: #### R ETIC #### [facility] ([facility]) [address] [place] [address] VIR Hematocrit (Bld) [Volume fraction] 28.2 % Low 35-47 [facility] Comment on above: Performed By: #### R ETIC #### [facility] ([facility]) [address] [place] [address] VIR Hemoglobin (Bld) [Mass/Vol] 9.4 g/dL Low 11.7-15.5 [facility] Comment on above: Performed By: #### R ETIC #### [facility] ([facility]) [address] [place] [address] VIR MCH (RBC) [Entitic mass] 28.5 pg Normal 27-34 [facility] Comment on above: Performed By: #### R ETIC #### [facility] ([facility]) [address] [place] [address] VIR MCHC (RBC) [Mass/Vol] 33.2 g/dL Normal 32-36 [facility] Comment on above: Performed By: #### R ETIC #### [facility] ([facility]) [address] [place] [address] VIR MCV (RBC) [Entitic vol] 86 fL Normal 80-100 [facility] Comment on above: Performed By: #### R ETIC #### [facility] ([facility]) [address] [place] [address] VIR Platelet mean volume (Bld) [Entitic vol] 7.8 fL Normal 7-12 [facility] Comment on above: Performed By: #### R ETIC #### [facility] ([facility]) [address] [place] [address] VIR Platelets (Bld) [#/Vol] 39 10*3/uL Low 150-450 [facility] Comment on above: Performed By: #### R ETIC #### [facility] ([facility]) [address] [place] [address] VIR RBC COUNT 3.29 X10E12/L Low 3.8-5.2 [facility] Comment on above: Performed By: #### R ETIC #### [facility] ([facility]) [address] [place] [address] VIR WBC (Bld) [#/Vol] 11.1 10*3/uL High 4-11 [facility] Comment on above: Performed By: #### R ETIC #### [facility] ([facility]) [address] [place] [address] VIR COMPREHENSIVE METABOLIC PANE Luan 12-30-2024 Albumin [Mass/Vol] 3.3 g/dL Normal 3.2-5.3 [facility] Comment on above: Performed By: #### R ETIC #### [facility] ([facility]) [address] [place] [address] VIR ALP [Catalytic activity/Vol] 48 U/L Normal 39-130 [facility] Comment on above: Performed By: #### R ETIC #### [facility] ([facility]) [address] [place] [address] VIR ALT [Catalytic activity/Vol] 14 U/L Normal <=31 [facility] Comment on above: Performed By: #### R ETIC #### [facility] ([facility]) [address] [place] [address] VIR Anion gap [Moles/Vol] 6 mmol/L Normal 5-15 [facility] Comment on above: Performed By: #### R ETIC #### [facility] ([facility]) [address] [place] [address] VIR AST [Catalytic activity/Vol] 12 U/L Normal <=41 [facility] Comment on above: Performed By: #### R ETIC #### [facility] ([facility]) [address] [place] [address] VIR Bilirubin [Mass/Vol] 0.6 mg/dL Normal 0.3-1.2 [facility] Comment on above: Performed By: #### R ETIC #### [facility] ([facility]) [address] [place] [address] VIR Calcium [Mass/Vol] 8.9 mg/dL Normal 8.5-10.5 [facility] Comment on above: Performed By: #### R ETIC #### [facility] ([facility]) [address] [place] [address] VIR Chloride [Moles/Vol] 109 mmol/L Normal 98-109 [facility] Comment on above: Performed By: #### R ETIC #### [facility] ([facility]) [address] [place] [address] VIR CO2 [Moles/Vol] 25 mmol/L Normal 22-32 [facility] Comment on above: Performed By: #### R ETIC #### [facility] ([facility]) [address] [place] [address] VIR Creatinine [Mass/Vol] 0.97 mg/dL Normal 0.40-1.00 [facility] Comment on above: Result Comment: METH OD TRACEABLE TO IDMS STANDARD Performed By: #### R ETIC #### [facility] ([facility]) [address] [place] [address] VIR GFR/1.73 sq M.predicted among non-blacks MDRD (S/P/Bld) [Vol rate/Area] 73 mL/min/{1.73_m2} Normal >=60 [facility] Comment on above: Result Comment: Repo rted eGFR is based on the CKD-EPI 2020 equation that does not use a race coefficient. Performed By: #### R ETIC #### [facility] ([facility]) [address] [place] [address] VIR Glucose [Mass/Vol] 72 mg/dL Normal 65-99 [facility] Comment on above: Performed By: #### R ETIC #### [facility] ([facility]) [address] [place] [address] VIR Potassium [Moles/Vol] 3.9 mmol/L Normal 3.5-5.0 [facility] Comment on above: Performed By: #### R ETIC #### [facility] ([facility]) [address] [place] [address] VIR Protein [Mass/Vol] 6.7 g/dL Normal 6.0-8.0 [facility] Comment on above: Performed By: #### R ETIC #### [facility] ([facility]) [address] [place] [address] VIR Sodium [Moles/Vol] 140 mmol/L Normal 134-146 [facility] Comment on above: Performed By: #### R ETIC #### [facility] ([facility]) [address] [place] [address] VIR Urea nitrogen [Mass/Vol] 19 mg/dL Normal 5-23 [facility] Comment on above: Performed By: #### R ETIC #### [facility] ([facility]) [address] [place] [address] VIR Clinical Pathologyon 025 Clinical Pathology Normal [facility] Comment on above: Result Comment: [facility] [address] [place] [address] Clinical Pathology Report Patient Name:TEREZA CEJA:1975 (Age: 49)Gender:FTaken:12/30/2024Reported:01/01/2025Physician(s):Tatum Manzo M.D. ([phone])Copy To: Rec. #:[id number]: #[id number] Final Pathologic Diagnosis No serological evidence of [...] dissipation of signs/symptoms within an hour. Reference: [facility] [employer]ig[employer]ance Component Hemovigilance Module Surveillance Protocol v2.9 Report Electronically Signed Out /01/01/2025Apolinar Jones MD Interpretation performed at [facility], [address] [place] [id number], License number: [id number]. Clinical History Stroke. TRANSFUSION REACTION CONSULTATION DATA/OBSERVATIONS: Repeat ABO/Rh typing (pre-and post-transfusion): O negative Repeat ABO/Rh typing on donor specimen: B negative (Plasma) PB: Negative Visible hemolysis in patient sample: No Specimen(s) Received Transfusion Reaction Fee Codes(s): 83610 FIBRINOGENon 12-30-2024 FIBRINOGEN 231 mg/dL Normal 190-480 [facility] Comment on above: Performed By: #### T SC #### [facility] ([facility]) [address] [place] [address] VIR IONIZED CALCIUMon 12-30-2024 IONIZED CALCIUM - ICAN 5.0 mg/dL Normal 4.5-5.3 [facility] Comment on above: Performed By: #### T SC #### [facility] ([facility]) [address] [place] [address] VIR IR CICV NON-TUNLD > 5YRSon 0 12-30-2024 IR CICV NON-TUNLD > 5YRS IR CICV NON-TUNLD > 5YRS CENTRAL VENOUS CATHETER PLACEMENT WITH ULTRASOUND GUIDANCE DATE: 12/30/2024 2:36 PM INDICATION: Urgent plasmapheresis ATTENDING: Vanessa Rivera MD SEDATION: 50 mcg of fentanyl [...] is available for immediate use. Finalized by Vanessa Rivera MD on 12/30/2024 2:37 [facility] L[facility] U/L High 100-235 [facility] Comment on above: Performed By: #### T SC #### [facility] ([facility]) [address] [place] [address] VIR RETICULOCYTESon 12-30-2024 RETICULOCYTE COUNT 2.9 % High 0.4-2.2 [facility] Comment on above: Performed By: #### T SC #### [facility] ([facility]) [address] [place] [address] VIR TYPE AND SCREENon 12-30-2024 ABO_INTEP O Normal [facility] Comment on above: Performed By: #### T SC #### [facility] ([facility]) [address] [place] [address] VIR RH_INTEP Negative Normal [facility] Comment on above: Performed By: #### T SC #### [facility] ([facility]) [address] [place] [address] VIR CBC WITH AUTO DIFFERENTIALon 12-29-2024 BASOPHILS ABSOLUTE COUNT (10*3/UL) BY AUTOMATED COUNT 0.0 10*3/uL Normal [facility] Comment on above: Result Comment: This is an appended report. These results have been appended to a previously preliminary verified report. Performed By: #### C MP #### [facility] ([address] [address] VIR BASOPHILS RELATIVE PERCENT BY AUTOMATED COUNT 0.2 % Normal [facility] Comment on above: Result Comment: This is an appended report. These results have been appended to a previously preliminary verified report. Performed By: #### C MP #### [facility] ([facility]) [address] [place] [address] VIR CELLAVISION DIFFERENTIAL TYPE AUTOMATED DIFFERENTIAL Normal [facility] Comment on above: Result Comment: This is an appended report. These results have been appended to a previously preliminary verified report. Performed By: #### C MP #### [facility] ([facility]) [address] [place] [address]. [place] [address] VIR Eosinophils (Bld) [#/Vol] 0.0 10*3/uL Normal [facility] Comment on above: Result Comment: This is an appended report. These results have been appended to a previously preliminary verified report. Performed By: #### C MP #### [facility] ([facility]) [address] [place] [address]. [place] [address] VIR EOSINOPHILS RELATIVE PERCENT BY AUTOMATED COUNT 0.3 % Normal [facility] Comment on above: Result Comment: This is an appended report. These results have been appended to a previously preliminary verified report. Performed By: #### C MP #### [facility] ([address] [place] [address] VIR Erythrocyte distribution width (RBC) [Ratio] 14.9 % Normal 11.5-15 [facility] Comment on above: Performed By: #### C MP #### [facility] ([address] [place] [address] VIR Hematocrit (Bld) [Volume fraction] 31.0 % Low 35-47 [facility] Comment on above: Performed By: #### C MP #### [facility] ([address] [place] [address] VIR Hemoglobin (Bld) [Mass/Vol] 10.3 g/dL Low 11.7-15.5 [facility] Comment on above: Performed By: #### C MP #### [facility] ([address] [place] [address] VIR LYMPHOCYTES ABSOLUTE COUNT (10*3/UL) BY AUTOMATED COUNT 3.0 10*3/uL Normal [facility] Comment on above: Result Comment: This is an appended report. These results have been appended to a previously preliminary verified report. Performed By: #### C MP #### [facility] ([facility]) [address] [place] [address]. [place] [address] VIR LYMPHOCYTES RELATIVE PERCENT BY AUTOMATED COUNT 24.7 % Normal [facility] Comment on above: Result Comment: This is an appended report. These results have been appended to a previously preliminary verified report. Performed By: #### C MP #### [facility] ([address] [place] [address] VIR MCH (RBC) [Entitic mass] 28.9 pg Normal 27-34 [facility] Comment on above: Performed By: #### C MP #### [facility] ([address] [address] VIR MCHC (RBC) [Mass/Vol] 33.2 g/dL Normal 32-36 [facility] Comment on above: Performed By: #### C MP #### [facility] ([address] [place] [address] VIR MCV (RBC) [Entitic vol] 87 fL Normal 80-100 [facility] Comment on above: Performed By: #### C MP #### [facility] ([address] [place] [address] VIR MONOCYTES ABSOLUTE COUNT (10*3/UL) BY AUTOMATED COUNT 0.4 10*3/uL Normal [facility] Comment on above: Result Comment: This is an appended report. These results have been appended to a previously preliminary verified report. Performed By: #### C MP #### [facility] ([address] [address] VIR MONOCYTES RELATIVE PERCENT BY AUTOMATED COUNT 3.4 % Normal [facility] Comment on above: Result Comment: This is an appended report. These results have been appended to a previously preliminary verified report. Performed By: #### C MP #### [facility] ([address] [place] [address] VIR NEUTROPHILS ABSOLUTE COUNT BY AUTOMATED COUNT 8.6 10*3/uL Normal [facility] Comment on above: Result Comment: This is an appended report. These results have been appended to a previously preliminary verified report. Performed By: #### C MP #### [facility] ([address] [address] VIR NEUTROPHILS RELATIVE PERCENT BY AUTOMATED COUNT 71.4 % Normal [facility] Comment on above: Result Comment: This is an appended report. These results have been appended to a previously preliminary verified report. Performed By: #### C MP #### [facility] ([address] [address] VIR Platelet mean volume (Bld) [Entitic vol] 7.4 fL Normal 7-12 [facility] Comment on above: Performed By: #### C MP #### [facility] ([address] [address] VIR Platelets (Bld) [#/Vol] 39 10*3/uL Low 150-450 [facility] Comment on above: Performed By: #### C MP #### [facility] ([address] [address] VIR RBC COUNT 3.57 X10E12/L Low 3.8-5.2 [facility] Comment on above: Performed By: #### C MP #### [facility] ([address] [place] [address] VIR WBC (Bld) [#/Vol] 12.1 10*3/uL High 4-11 [facility] Comment on above: Performed By: #### C MP #### [facility] ([address] [address] VIR CLINICAL PATHOLOGY BLOOD SME AR REVIEWon 12-29-2024 CLINICAL PATHOLOGY BLOOD SMEAR REVIEW STAFF CLINICAL PATHOLOGY BLOOD SMEAR REVIEW Cancelled Normal [facility] Comment on above: Order Comment: Jadon julien have pathology expedite read to re- evaluate for schistocytes COMPREHENSIVE METABOLIC PANE Luan 12-29-2024 Albumin [Mass/Vol] 4.0 g/dL Normal 3.2-5.3 [facility] Comment on above: Performed By: #### R ETIC #### [facility] ([facility]) [address] [place] [address] VIR ALP [Catalytic activity/Vol] 57 U/L Normal 39-130 [facility] Comment on above: Performed By: #### R ETIC #### [facility] ([facility]) [address] [place] [address] VIR ALT [Catalytic activity/Vol] 15 U/L Normal <=31 [facility] Comment on above: Performed By: #### R ETIC #### [facility] ([facility]) [address] [place] [address] VIR Anion gap [Moles/Vol] 8 mmol/L Normal 5-15 [facility] Comment on above: Performed By: #### R ETIC #### [facility] ([facility]) [address] [place] [address] VIR AST [Catalytic activity/Vol] 16 U/L Normal <=41 [facility] Comment on above: Performed By: #### R ETIC #### [facility] ([facility]) [address] [place] [address] VIR Bilirubin [Mass/Vol] 0.7 mg/dL Normal 0.3-1.2 [facility] Comment on above: Performed By: #### R ETIC #### [facility] ([facility]) [address] [place] [address] VIR Calcium [Mass/Vol] 9.3 mg/dL Normal 8.5-10.5 [facility] Comment on above: Performed By: #### R ETIC #### [facility] ([facility]) [address] [place] [address] VIR Chloride [Moles/Vol] 106 mmol/L Normal 98-109 [facility] Comment on above: Performed By: #### R ETIC #### [facility] ([facility]) [address] [place] [address] VIR CO2 [Moles/Vol] 26 mmol/L Normal 22-32 [facility] Comment on above: Performed By: #### R ETIC #### [facility] ([facility]) [address] [place] [address] VIR Creatinine [Mass/Vol] 0.97 mg/dL Normal 0.40-1.00 [facility] Comment on above: Result Comment: METH OD TRACEABLE TO IDMS STANDARD Performed By: #### R ETIC #### [facility] ([facility]) [address] [place] [address] VIR GFR/1.73 sq M.predicted among non-blacks MDRD (S/P/Bld) [Vol rate/Area] 73 mL/min/{1.73_m2} Normal >=60 [facility] Comment on above: Result Comment: Repo rted eGFR is based on the CKD-EPI 2020 equation that does not use a race coefficient. Performed By: #### R ETIC #### [facility] ([facility]) [address] [place] [address] VIR Glucose [Mass/Vol] 175 mg/dL High 65-99 [facility] Comment on above: Performed By: #### R ETIC #### [facility] ([facility]) [address] [place] [address] VIR Potassium [Moles/Vol] 4.0 mmol/L Normal 3.5-5.0 [facility] Comment on above: Performed By: #### R ETIC #### [facility] ([facility]) [address] [place] [address] VIR Protein [Mass/Vol] 6.0 g/dL Normal 6.0-8.0 [facility] Comment on above: Performed By: #### R ETIC #### [facility] ([facility]) [address] [place] [address] VIR Sodium [Moles/Vol] 140 mmol/L Normal 134-146 [facility] Comment on above: Performed By: #### R ETIC #### [facility] ([facility]) [address] [place] [address] VIR Urea nitrogen [Mass/Vol] 17 mg/dL Normal 5-23 [facility] Comment on above: Performed By: #### R ETIC #### [facility] ([facility]) [address] [place] [address] VIR FUNGAL CULTURE, SKINon 12-29 FUNGAL CULTURE, SKIN CULTURE RESULTS NO FUNGUS ISOLATED AFTER 4 WEEKS FUNGAL SMEAR No fungal elements seen On Direct Smear Normal [facility] Comment on above: Performed By: #### R ETIC #### [facility] ([facility]) [address] [place] [address] VIR HAPTOGLOBINon 12-29-2024 HAPTOGLOBIN <^30 Low 32-228 [facility] Comment on above: Performed By: #### R ETIC #### [facility] ([facility]) [address] [place] [address] VIR LDHon 12-29-2024 LDH 282 U/L High 100-235 [facility] Comment on above: Performed By: #### R ETIC #### [facility] ([facility]) [address] [place] [address] VIR LUDIN SCREEN W/ REFLEXon 12-28 LUDIN SCREEN W/REFLEX Negative Normal Negative [facility] Comment on above: Order Comment: Testi ng performed using multiplex flow immunoassay. Eleven difference antigens associated with systemic autoimmunie diseases (dsDNA, Sm, Sm/SENIOR FINANCIAL REPORTING ANALYST, SENIOR FINANCIAL REPORTING ANALYST, Chromatin, SSA, SSB, Diane-1, Sc170, Ribo P, Centromere B) are included in this sreening tests. Performed By: #### C #### [facility] ([address] [place] [address] VIR CBC WITH AUTO DIFFERENTIALon 12-28-2024 BASOPHILS ABSOLUTE COUNT (10*3/UL) BY AUTOMATED COUNT 0.0 10*3/uL Normal [facility] Comment on above: Performed By: #### C MP #### [facility] ([address] [place] [address] VIR BASOPHILS RELATIVE PERCENT BY AUTOMATED COUNT 0.3 % Normal [facility] Comment on above: Performed By: #### C MP #### [facility] ([address] [address] VIR CELLAVISION DIFFERENTIAL TYPE AUTOMATED DIFFERENTIAL Normal [facility] Comment on above: Performed By: #### C MP #### [facility] ([address] [address] VIR CELLAVISION RBC FRAGMENTS 1+ Normal [facility] Comment on above: Performed By: #### C MP #### [facility] ([address] [place] [address] VIR Eosinophils (Bld) [#/Vol] 0.0 10*3/uL Normal [facility] Comment on above: Performed By: #### C MP #### [facility] ([address] [place] [address] VIR EOSINOPHILS RELATIVE PERCENT BY AUTOMATED COUNT 0.0 % Normal [facility] Comment on above: Performed By: #### C MP #### [facility] ([address] [place] [address] VIR Erythrocyte distribution width (RBC) [Ratio] 15.0 % Normal 11.5-15 [facility] Comment on above: Performed By: #### C MP #### [facility] ([address] [address] VIR Hematocrit (Bld) [Volume fraction] 32.2 % Low 35-47 [facility] Comment on above: Performed By: #### C MP #### [facility] ([address] [place] [address] VIR Hemoglobin (Bld) [Mass/Vol] 10.6 g/dL Low 11.7-15.5 [facility] Comment on above: Performed By: #### C MP #### [facility] ([address] [place] [address] VIR LYMPHOCYTES ABSOLUTE COUNT (10*3/UL) BY AUTOMATED COUNT 1.6 10*3/uL Normal [facility] Comment on above: Performed By: #### C MP #### [facility] ([address] [place] [address] VIR LYMPHOCYTES RELATIVE PERCENT BY AUTOMATED COUNT 12.6 % Normal [facility] Comment on above: Performed By: #### C MP #### [facility] ([address] [place] [address] VIR MCH (RBC) [Entitic mass] 28.5 pg Normal 27-34 [facility] Comment on above: Performed By: #### C MP #### [facility] ([address] [place] [address] VIR MCHC (RBC) [Mass/Vol] 33.0 g/dL Normal 32-36 [facility] Comment on above: Performed By: #### C MP #### [facility] ([address] [place] [address] VIR MCV (RBC) [Entitic vol] 86 fL Normal 80-100 [facility] Comment on above: Performed By: #### C MP #### [facility] ([address] [place] [address] VIR MONOCYTES ABSOLUTE COUNT (10*3/UL) BY AUTOMATED COUNT 0.7 10*3/uL Normal [facility] Comment on above: Performed By: #### C MP #### [facility] ([address] [address] VIR MONOCYTES RELATIVE PERCENT BY AUTOMATED COUNT 5.9 % Normal [facility] Comment on above: Performed By: #### C MP #### [facility] ([address] [place] [address] VIR NEUTROPHILS ABSOLUTE COUNT BY AUTOMATED COUNT 10.3 10*3/uL Normal [facility] Comment on above: Performed By: #### C MP #### [facility] ([address] [address] VIR NEUTROPHILS RELATIVE PERCENT BY AUTOMATED COUNT 81.2 % Normal [facility] Comment on above: Performed By: #### C MP #### [facility] ([address] [address] VIR Platelet mean volume (Bld) [Entitic vol] 7.1 fL Normal 7-12 [facility] Comment on above: Result Comment: I-R Performed By: #### C MP #### [facility] ([address] [address] VIR Platelets (Bld) [#/Vol] 28 10*3/uL Critically low 150-450 [facility] Comment on above: Result Comment: I-R Performed By: #### C MP #### [facility] ([address] [address] VIR RBC COUNT 3.73 X10E12/L Low 3.8-5.2 [facility] Comment on above: Performed By: #### C MP #### [facility] ([address] [place] [address] VIR WBC (Bld) [#/Vol] 12.6 10*3/uL High 4-11 [facility] Comment on above: Performed By: #### C MP #### [facility] ([address] [place] [address] VIR BASOPHILS ABSOLUTE COUNT (10*3/UL) BY AUTOMATED COUNT 0.0 10*3/uL Normal [facility] Comment on above: Result Comment: This is an appended report. These results have been appended to a previously preliminary verified report. Performed By: #### C MP #### [facility] ([facility]) [address] [place] [address] VIR BASOPHILS RELATIVE PERCENT BY AUTOMATED COUNT 0.1 % Normal [facility] Comment on above: Result Comment: This is an appended report. These results have been appended to a previously preliminary verified report. Performed By: #### C MP #### [facility] ([address] [address] VIR CELLAVISION DIFFERENTIAL TYPE AUTOMATED DIFFERENTIAL Normal [facility] Comment on above: Result Comment: This is an appended report. These results have been appended to a previously preliminary verified report. Performed By: #### C MP #### [facility] ([address] [address] VIR Eosinophils (Bld) [#/Vol] 0.0 10*3/uL Normal [facility] Comment on above: Result Comment: This is an appended report. These results have been appended to a previously preliminary verified report. Performed By: #### C MP #### [facility] ([address] [address] VIR EOSINOPHILS RELATIVE PERCENT BY AUTOMATED COUNT 0.1 % Normal [facility] Comment on above: Result Comment: This is an appended report. These results have been appended to a previously preliminary verified report. Performed By: #### C MP #### [facility] ([address] [address] VIR Erythrocyte distribution width (RBC) [Ratio] 14.9 % Normal 11.5-15 [facility] Comment on above: Performed By: #### C MP #### [facility] ([address] [address] VIR Hematocrit (Bld) [Volume fraction] 33.3 % Low 35-47 [facility] Comment on above: Performed By: #### C MP #### [facility] ([address] [address] VIR Hemoglobin (Bld) [Mass/Vol] 11.1 g/dL Low 11.7-15.5 [facility] Comment on above: Performed By: #### C MP #### [facility] ([address] [address] VIR LYMPHOCYTES ABSOLUTE COUNT (10*3/UL) BY AUTOMATED COUNT 1.2 10*3/uL Normal [facility] Comment on above: Result Comment: This is an appended report. These results have been appended to a previously preliminary verified report. Performed By: #### C MP #### [facility] ([address] [address] VIR LYMPHOCYTES RELATIVE PERCENT BY AUTOMATED COUNT 10.9 % Normal [facility] Comment on above: Result Comment: This is an appended report. These results have been appended to a previously preliminary verified report. Performed By: #### C MP #### [facility] ([address] [address] VIR MCH (RBC) [Entitic mass] 28.5 pg Normal 27-34 [facility] Comment on above: Performed By: #### C MP #### [facility] ([address] [address] VIR MCHC (RBC) [Mass/Vol] 33.4 g/dL Normal 32-36 [facility] Comment on above: Performed By: #### C MP #### [facility] ([address] [place] [address] VIR MCV (RBC) [Entitic vol] 85 fL Normal 80-100 [facility] Comment on above: Performed By: #### C MP #### [facility] ([address] [place] [address] VIR MONOCYTES ABSOLUTE COUNT (10*3/UL) BY AUTOMATED COUNT 0.3 10*3/uL Normal [facility] Comment on above: Result Comment: This is an appended report. These results have been appended to a previously preliminary verified report. Performed By: #### C MP #### [address] [address] VIR MONOCYTES RELATIVE PERCENT BY AUTOMATED COUNT 2.6 % Normal [facility] Comment on above: Result Comment: This is an appended report. These results have been appended to a previously preliminary verified report. Performed By: #### C MP #### [facility] ([address] [address] VIR NEUTROPHILS ABSOLUTE COUNT BY AUTOMATED COUNT 9.5 10*3/uL Normal [facility] Comment on above: Result Comment: This is an appended report. These results have been appended to a previously preliminary verified report. Performed By: #### C MP #### [facility] ([address] [address] VIR NEUTROPHILS RELATIVE PERCENT BY AUTOMATED COUNT 86.3 % Normal [facility] Comment on above: Result Comment: This is an appended report. These results have been appended to a previously preliminary verified report. Performed By: #### C MP #### [facility] ([address] [address] VIR Platelet mean volume (Bld) [Entitic vol] 6.8 fL Low 7-12 [facility] Comment on above: Result Comment: I-R Performed By: #### C MP #### [facility] ([address] [place] [address] VIR Platelets (Bld) [#/Vol] 33 10*3/uL Low 150-450 [facility] Comment on above: Result Comment: I-R Performed By: #### C MP #### [facility] ([facility]) [address] [place] [address] [place] [address] VIR RBC COUNT 3.90 X10E12/L Normal 3.8-5.2 [facility] Comment on above: Performed By: #### C MP #### [facility] ([address] [place] [address] VIR WBC (Bld) [#/Vol] 11.0 10*3/uL Normal 4-11 [facility] Comment on above: Performed By: #### C MP #### [facility] ([address] [place] [address] VIR BASOPHILS ABSOLUTE COUNT (10*3/UL) BY AUTOMATED COUNT 0.1 10*3/uL Normal [facility] Comment on above: Performed By: #### B EDG #### [facility] ([facility]) [address] [place] [address] VIR BASOPHILS RELATIVE PERCENT BY AUTOMATED COUNT 0.5 % Normal [facility] Comment on above: Performed By: #### B EDG #### [facility] ([facility]) [address] [place] [address] VIR CELLAVISION DIFFERENTIAL TYPE AUTOMATED DIFFERENTIAL Normal [facility] Comment on above: Performed By: #### B EDG #### [facility] ([facility]) [address] [place] [address] VIR Eosinophils (Bld) [#/Vol] 0.1 10*3/uL Normal [facility] Comment on above: Performed By: #### B EDG #### [facility] ([facility]) [address] [place] [address] VIR EOSINOPHILS RELATIVE PERCENT BY AUTOMATED COUNT 0.4 % Normal [facility] Comment on above: Performed By: #### B EDG #### [facility] ([facility]) [address] [place] [address] VIR Erythrocyte distribution width (RBC) [Ratio] 15.1 % High 11.5-15 [facility] Comment on above: Performed By: #### B EDG #### [facility] ([facility]) [address] [place] [address] VIR Hematocrit (Bld) [Volume fraction] 33.8 % Low 35-47 [facility] Comment on above: Performed By: #### B EDG #### [facility] ([facility]) [address] [place] [address] VIR Hemoglobin (Bld) [Mass/Vol] 11.2 g/dL Low 11.7-15.5 [facility] Comment on above: Performed By: #### B EDG #### [facility] ([facility]) [address] [place] [address] VIR LYMPHOCYTES ABSOLUTE COUNT (10*3/UL) BY AUTOMATED COUNT 2.5 10*3/uL Normal [facility] Comment on above: Performed By: #### B EDG #### [facility] ([facility]) [address] [place] [address] VIR LYMPHOCYTES RELATIVE PERCENT BY AUTOMATED COUNT 19.6 % Normal [facility] Comment on above: Performed By: #### B EDG #### [facility] ([facility]) [address] [place] [address] VIR MCH (RBC) [Entitic mass] 28.2 pg Normal 27-34 [facility] Comment on above: Performed By: #### B EDG #### [facility] ([facility]) [address] [place] [address] VIR MCHC (RBC) [Mass/Vol] 33.2 g/dL Normal 32-36 [facility] Comment on above: Performed By: #### B EDG #### [facility] ([facility]) [address] [place] [address] VIR MCV (RBC) [Entitic vol] 85 fL Normal 80-100 [facility] Comment on above: Performed By: #### B EDG #### [facility] ([facility]) [address] [place] [address] VIR MONOCYTES ABSOLUTE COUNT (10*3/UL) BY AUTOMATED COUNT 1.1 10*3/uL Normal [facility] Comment on above: Performed By: #### B EDG #### [facility] ([facility]) [address] [place] [address] VIR MONOCYTES RELATIVE PERCENT BY AUTOMATED COUNT 8.5 % Normal [facility] Comment on above: Performed By: #### B EDG #### [facility] ([facility]) [address] [place] [address] VIR NEUTROPHILS ABSOLUTE COUNT BY AUTOMATED COUNT 9.1 10*3/uL Normal [facility] Comment on above: Performed By: #### B EDG #### [facility] ([facility]) [address] [place] [address] VIR NEUTROPHILS RELATIVE PERCENT BY AUTOMATED COUNT 71.0 % Normal [facility] Comment on above: Performed By: #### B EDG #### [facility] ([facility]) [address] [place] [address] VIR Platelet mean volume (Bld) [Entitic vol] 7.3 fL Normal 7-12 [facility] Comment on above: Result Comment: I-R Performed By: #### B EDG #### [facility] ([facility]) [address] [place] [address] VIR Platelets (Bld) [#/Vol] 43 10*3/uL Low 150-450 [facility] Comment on above: Result Comment: I-R Performed By: #### B EDG #### [facility] ([facility]) [address] [place] [place] [address] VIR RBC COUNT 3.97 X10E12/L Normal 3.8-5.2 [facility] Comment on above: Performed By: #### B EDG #### [facility] ([facility]) [address] [place] [address] VIR WBC (Bld) [#/Vol] 12.9 10*3/uL High 4-11 [facility] Comment on above: Performed By: #### B EDG #### [facility] ([facility]) [address] [place] [address] VIR BASOPHILS ABSOLUTE COUNT (10*3/UL) BY AUTOMATED COUNT 0.0 10*3/uL [facility] Comment on above: Performed By: #### B EDG #### [facility] ([facility]) [address] [place] [address] VIR BASOPHILS RELATIVE PERCENT BY AUTOMATED COUNT 0.2 % [facility] Comment on above: Performed By: #### B EDG #### [facility] ([facility]) [address] [place] [address] VIR CELLAVISION DIFFERENTIAL TYPE AUTOMATED DIFFERENTIAL Normal [facility] Comment on above: Performed By: #### B EDG #### [facility] ([facility]) [address] [place] [address] VIR Eosinophils (Bld) [#/Vol] 0.0 10*3/uL Normal [facility] Comment on above: Performed By: #### B EDG #### [facility] ([facility]) [address] [place] [address] VIR EOSINOPHILS RELATIVE PERCENT BY AUTOMATED COUNT 0.1 % [facility] Comment on above: Performed By: #### B EDG #### [facility] ([facility]) [address] [place] [address] VIR Erythrocyte distribution width (RBC) [Ratio] 15.3 % High 11.5-15 [facility] Comment on above: Performed By: #### B EDG #### [facility] ([facility]) [address] [place] [address] VIR Hematocrit (Bld) [Volume fraction] 33.8 % Low 35-47 [facility] Comment on above: Performed By: #### B EDG #### [facility] ([facility]) [address] [place] [address] VIR Hemoglobin (Bld) [Mass/Vol] 11.2 g/dL Low 11.7-15.5 [facility] Comment on above: Performed By: #### B EDG #### [facility] ([facility]) [address] [place] [address] VIR LYMPHOCYTES ABSOLUTE COUNT (10*3/UL) BY AUTOMATED COUNT 1.5 10*3/uL Normal [facility] Comment on above: Performed By: #### B EDG #### [facility] ([facility]) [address] [place] [address] VIR LYMPHOCYTES RELATIVE PERCENT BY AUTOMATED COUNT 12.6 % Normal [facility] Comment on above: Performed By: #### B EDG #### [facility] ([facility]) [address] [place] [address] VIR MCH (RBC) [Entitic mass] 28.8 pg Normal 27-34 [facility] Comment on above: Performed By: #### B EDG #### [facility] ([facility]) [address] [place] [address] VIR MCHC (RBC) [Mass/Vol] 33.2 g/dL Normal 32-36 [facility] Comment on above: Performed By: #### B EDG #### [facility] ([facility]) [address] [place] [address] VIR MCV (RBC) [Entitic vol] 87 fL Normal 80-100 [facility] Comment on above: Performed By: #### B EDG #### [facility] ([facility]) [address] [place] [address] VIR MONOCYTES ABSOLUTE COUNT (10*3/UL) BY AUTOMATED COUNT 0.8 10*3/uL Normal [facility] Comment on above: Performed By: #### B EDG #### [facility] ([facility]) [address] [facility] [place] [place] [address] VIR MONOCYTES RELATIVE PERCENT BY AUTOMATED COUNT 6.9 % Normal [facility] Comment on above: Performed By: #### B EDG #### [facility] ([facility]) [address] [facility] [place] [address] VIR NEUTROPHILS ABSOLUTE COUNT BY AUTOMATED COUNT 9.7 10*3/uL Normal [facility] Comment on above: Performed By: #### B EDG #### [facility] ([facility]) [address] [facility] [place] [address] VIR NEUTROPHILS RELATIVE PERCENT BY AUTOMATED COUNT 80.2 % Normal [facility] Comment on above: Performed By: #### B EDG #### [facility] ([facility]) [address] [facility] [place] [address] VIR Platelet mean volume (Bld) [Entitic vol] 6.5 fL Low 7-12 [facility] Comment on above: Performed By: #### B EDG #### [facility] ([facility]) [address] [place] [address] VIR Platelets (Bld) [#/Vol] 32 10*3/uL Low 150-450 [facility] Comment on above: Performed By: #### B EDG #### [facility] ([facility]) [address] [place] [address] VIR RBC COUNT 3.90 X10E12/L Normal 3.8-5.2 [facility] Comment on above: Performed By: #### B EDG #### [facility] ([facility]) [address] [place] [address] VIR WBC (Bld) [#/Vol] 12.0 10*3/uL High 4-11 [facility] Comment on above: Performed By: #### B EDG #### [facility] ([facility]) [address] [place] [address] VIR BASOPHILS ABSOLUTE COUNT (10*3/UL) BY AUTOMATED COUNT 0.0 10*3/uL Normal [facility] Comment on above: Result Comment: This is an appended report. These results have been appended to a previously preliminary verified report. Performed By: #### B EDG #### [facility] ([facility]) [address] [place] [address] VIR BASOPHILS RELATIVE PERCENT BY AUTOMATED COUNT 0.5 % [facility] Comment on above: Result Comment: This is an appended report. These results have been appended to a previously preliminary verified report. Performed By: #### B EDG #### [facility] ([facility]) [address] [place] [address] VIR CELLAVISION DIFFERENTIAL TYPE AUTOMATED DIFFERENTIAL Normal [facility] Comment on above: Result Comment: This is an appended report. These results have been appended to a previously preliminary verified report. Performed By: #### B EDG #### [facility] ([facility]) [address] [place] [address] VIR Eosinophils (Bld) [#/Vol] 0.0 10*3/uL Normal [facility] Comment on above: Result Comment: This is an appended report. These results have been appended to a previously preliminary verified report. Performed By: #### B EDG #### [facility] ([facility]) [address] [place] [address] VIR EOSINOPHILS RELATIVE PERCENT BY AUTOMATED COUNT 0.1 % Normal [facility] Comment on above: Result Comment: This is an appended report. These results have been appended to a previously preliminary verified report. Performed By: #### B EDG #### [facility] ([facility]) [address] [place] [address] VIR Erythrocyte distribution width (RBC) [Ratio] 14.7 % Normal 11.5-15 [facility] Comment on above: Performed By: #### B EDG #### [facility] ([facility]) [address] [place] [address] VIR Hematocrit (Bld) [Volume fraction] 33.8 % Low 35-47 [facility] Comment on above: Performed By: #### B EDG #### [facility] ([facility]) [address] [place] [address] VIR Hemoglobin (Bld) [Mass/Vol] 11.3 g/dL Low 11.7-15.5 [facility] Comment on above: Performed By: #### B EDG #### [facility] ([facility]) [address] [place] [address] VIR LYMPHOCYTES ABSOLUTE COUNT (10*3/UL) BY AUTOMATED COUNT 1.0 10*3/uL Normal [facility] Comment on above: Result Comment: This is an appended report. These results have been appended to a previously preliminary verified report. Performed By: #### B EDG #### [facility] ([facility]) [address] [place] [address] VIR LYMPHOCYTES RELATIVE PERCENT BY AUTOMATED COUNT 10.6 % Normal [facility] Comment on above: Result Comment: This is an appended report. These results have been appended to a previously preliminary verified report. Performed By: #### B EDG #### [facility] ([facility]) [address] [place] [address] VIR MCH (RBC) [Entitic mass] 28.4 pg Normal 27-34 [facility] Comment on above: Performed By: #### B EDG #### [facility] ([facility]) [address] [place] [address] VIR MCHC (RBC) [Mass/Vol] 33.3 g/dL Normal 32-36 [facility] Comment on above: Performed By: #### B EDG #### [facility] ([facility]) [address] [place] [address] VIR MCV (RBC) [Entitic vol] 85 fL Normal 80-100 [facility] Comment on above: Performed By: #### B EDG #### [facility] ([facility]) [address] [place] [address] VIR MONOCYTES ABSOLUTE COUNT (10*3/UL) BY AUTOMATED COUNT 0.3 10*3/uL Normal [facility] Comment on above: Result Comment: This is an appended report. These results have been appended to a previously preliminary verified report. Performed By: #### B EDG #### [facility] ([facility]) [address] [place] [address] VIR MONOCYTES RELATIVE PERCENT BY AUTOMATED COUNT 2.8 % Normal [facility] Comment on above: Result Comment: This is an appended report. These results have been appended to a previously preliminary verified report. Performed By: #### B EDG #### [facility] ([facility]) [address] [place] [address] VIR NEUTROPHILS ABSOLUTE COUNT BY AUTOMATED COUNT 7.9 10*3/uL Normal [facility] Comment on above: Result Comment: This is an appended report. These results have been appended to a previously preliminary verified report. Performed By: #### B EDG #### [facility] ([facility]) [address] [place] [address] VIR NEUTROPHILS RELATIVE PERCENT BY AUTOMATED COUNT 86.0 % Normal [facility] Comment on above: Result Comment: This is an appended report. These results have been appended to a previously preliminary verified report. Performed By: #### B EDG #### [facility] ([facility]) [address] [place] [address] VIR Platelet mean volume (Bld) [Entitic vol] 6.6 fL Low 7-12 [facility] Comment on above: Performed By: #### B EDG #### [facility] ([facility]) [address] [place] [address] VIR Platelets (Bld) [#/Vol] 34 10*3/uL Low 150-450 [facility] Comment on above: Performed By: #### B EDG #### [facility] ([facility]) [address] [place] [address] VIR RBC COUNT 3.96 X10E12/L Normal 3.8-5.2 [facility] Comment on above: Performed By: #### B EDG #### [facility] ([facility]) [address] [place] [address] VIR WBC (Bld) [#/Vol] 9.2 10*3/uL Normal 4-11 [facility] Comment on above: Performed By: #### B EDG #### [facility] ([facility]) [address] [place] [address] VIR COMPREHENSIVE METABOLIC PANE [facility] 12-28-2024 Albumin [Mass/Vol] 4.0 g/dL Normal 3.2-5.3 [facility] Comment on above: Performed By: #### C MP #### [facility] ([address] [address] VIR ALP [Catalytic activity/Vol] 64 U/L Normal 39-130 [facility] Comment on above: Performed By: #### C MP #### [facility] ([address] [address] VIR ALT [Catalytic activity/Vol] 12 U/L Normal <=31 [facility] Comment on above: Performed By: #### C MP #### [facility] ([address] [address] VIR Anion gap [Moles/Vol] 8 mmol/L Normal 5-15 [facility] Comment on above: Performed By: #### C MP #### [facility] ([address] [place] [address] VIR AST [Catalytic activity/Vol] 13 U/L Normal <=41 [facility] Comment on above: Performed By: #### C MP #### [facility] ([facility]) [address] [place], [place] [address] [place] [address] VIR Bilirubin [Mass/Vol] 0.6 mg/dL Normal 0.3-1.2 [facility] Comment on above: Performed By: #### C MP #### [facility] ([facility]) [address] [place], [place] [address] [place] [place] [address] VIR Calcium [Mass/Vol] 9.2 mg/dL Normal 8.5-10.5 [facility] Comment on above: Performed By: #### C MP #### [facility] ([address] [place] [address] VIR Chloride [Moles/Vol] 107 mmol/L Normal 98-109 [facility] Comment on above: Performed By: #### C MP #### [facility] ([address] [place] [address] VIR CO2 [Moles/Vol] 23 mmol/L Normal 22-32 [facility] Comment on above: Performed By: #### C MP #### [facility] ([address] [place] [address] VIR Creatinine [Mass/Vol] 0.98 mg/dL Normal 0.40-1.00 [facility] Comment on above: Result Comment: METH OD TRACEABLE TO IDMS STANDARD Performed By: #### C MP #### [facility] ([address] [place] [address] VIR GFR/1.73 sq M.predicted among non-blacks MDRD (S/P/Bld) [Vol rate/Area] 72 mL/min/{1.73_m2} Normal >=60 [facility] Comment on above: Result Comment: Repo rted eGFR is based on the CKD-EPI 2021 equation that does not use a race coefficient. Performed By: #### C MP #### [facility] ([facility]) [address] [place] [address] [place] [address] VIR Glucose [Mass/Vol] 174 mg/dL High 65-99 [facility] Comment on above: Performed By: #### C MP #### [facility] ([address] [place] [address] VIR Potassium [Moles/Vol] 4.2 mmol/L Normal 3.5-5.0 [facility] Comment on above: Performed By: #### C MP #### [facility] ([address] [place] [address] VIR Protein [Mass/Vol] 6.2 g/dL Normal 6.0-8.0 [facility] Comment on above: Performed By: #### C MP #### [facility] ([address] [place] [address] VIR Sodium [Moles/Vol] 138 mmol/L Normal 134-146 [facility] Comment on above: Performed By: #### C MP #### [facility] ([address] [place] [address] VIR Urea nitrogen [Mass/Vol] 14 mg/dL Normal 5-23 [facility] Comment on above: Performed By: #### C MP #### [facility] ([address] [place] [address] VIR Albumin [Mass/Vol] 3.8 g/dL Normal 3.2-5.3 [facility] Comment on above: Performed By: #### B EDG #### [facility] ([facility]) [address] [place] [address] VIR ALP [Catalytic activity/Vol] 65 U/L Normal 39-130 [facility] Comment on above: Performed By: #### B EDG #### [place] [facility] ([facility]) [address] [place] [address] VIR ALT [Catalytic activity/Vol] 11 U/L Normal <=31 [facility] Comment on above: Performed By: #### B EDG #### [facility] ([facility]) [address] [facility] [place] [address] VIR Anion gap [Moles/Vol] 9 mmol/L Normal 5-15 [facility] Comment on above: Performed By: #### B EDG #### [facility] ([facility]) [address] [place] [address] VIR AST [Catalytic activity/Vol] 14 U/L Normal <=41 [facility] Comment on above: Performed By: #### B EDG #### [facility] ([facility]) [address] [place] [address] VIR Bilirubin [Mass/Vol] 0.8 mg/dL Normal 0.3-1.2 [facility] Comment on above: Performed By: #### B EDG #### [facility] ([facility]) [address] [place] [address] VIR Calcium [Mass/Vol] 9.3 mg/dL Normal 8.5-10.5 [facility] Comment on above: Performed By: #### B EDG #### [facility] ([facility]) [address] [place] [address] VIR Chloride [Moles/Vol] 107 mmol/L Normal 98-109 [facility] Comment on above: Performed By: #### B EDG #### [facility] ([facility]) [address] [place] [address] VIR CO2 [Moles/Vol] 22 mmol/L Normal 22-32 [facility] Comment on above: Performed By: #### B EDG #### [facility] ([facility]) [address] [place] [address] VIR Creatinine [Mass/Vol] 1.00 mg/dL Normal 0.40-1.00 [facility] Comment on above: Result Comment: METH OD TRACEABLE TO IDMS STANDARD Performed By: #### B EDG #### [facility] ([facility]) [address] [place] [address] VIR GFR/1.73 sq M.predicted among non-blacks MDRD (S/P/Bld) [Vol rate/Area] 70 mL/min/{1.73_m2} Normal >=60 [facility] Comment on above: Result Comment: Repo rted eGFR is based on the CKD-EPI 2020 equation that does not use a race coefficient. Performed By: #### B EDG #### [facility] ([facility]) [address] [place] [address] VIR Glucose [Mass/Vol] 137 mg/dL High 65-99 [facility] Comment on above: Performed By: #### B EDG #### [facility] ([facility]) [address] [place] [address] VIR Potassium [Moles/Vol] 4.4 mmol/L Normal 3.5-5.0 [facility] Comment on above: Performed By: #### B EDG #### [facility] ([facility]) [address] [place] [address] VIR Protein [Mass/Vol] 6.1 g/dL Normal 6.0-8.0 [facility] Comment on above: Performed By: #### B EDG #### [facility] ([facility]) [address] [place] [address] VIR Sodium [Moles/Vol] 138 mmol/L Normal 134-146 [facility] Comment on above: Performed By: #### B EDG #### [facility] ([facility]) [address] [place] [address] VIR Urea nitrogen [Mass/Vol] 14 mg/dL Normal 5-23 [facility] Comment on above: Performed By: #### B EDG #### [facility] ([facility]) [address] [place] [place] [address] VIR FIBRINOGENon 12-28-2024 FIBRINOGEN 336 mg/dL Normal 190-480 [facility] Comment on above: Performed By: #### B EDG #### [facility] ([facility]) [address] [place] [address] VIR HEPATITIS PANEL, ACUTEon ANTI HCV W/PCR REFLX Non-Reactive Normal Non-Reactive [facility] Comment on above: Result Comment: If r ecent infection suspected, recommend repeat testing (>2 months). Vpyfmt-dr-[id number] ratio is <1.0. Performed By: #### C MP #### [facility] ([facility]) [address] [place] [address] VIR HEPATITIS A IGM Non-Reactive Normal Non-Reactive [facility] Comment on above: Performed By: #### C MP #### [facility] ([facility]) [address] [place] [address] VIR HEPATITIS B CORE IGM Non-Reactive Normal Non-Reactive [facility] Comment on above: Performed By: #### C MP #### [facility] ([facility]) [address] [place] [address] VIR HEPATITIS B SURF AG Non-Reactive Normal Non-Reactive [facility] Comment on above: Performed By: #### C MP #### [facility] ([facility]) [address] [place] [address] VIR HIV 1 AND 2 AB/AG SCREEN (P2 4 AG)on 12-28-2024 HIV 1 AND 2 AB/AG SCREEN Non-Reactive Normal Non-Reactive [facility] Comment on above: Order Comment: This information has been disclosed to you [...] release of HIV test results or diagnoses. Performed By: #### B EDG #### [facility] ([facility]) [address] [place] [address] VIR LDHon 12-28-2024 LDH 293 U/L High 100-235 [facility] Comment on above: Performed By: #### C MP #### [facility]) [address] [place] [address] [place] [address] VIR MR BRAIN WO CONTon MR BRAIN WO CONT MR BRAIN WO CONT STUDY: MRI brain [...] Juanpablo Scanlon MD on 12/28/2024 5:59 AM Normal [facility] RETICULOCYTESon 12-28-2024 RETICULOCYTE COUNT 2.5 % High 0.4-2.2 [facility] Comment on above: Performed By: #### C MP #### [facility]) [address] [place] [address] [place] [address] VIR US ABDOMEN LMTDon 12-28-2024 US ABDOMEN LMTD US ABDOMEN LMTD US ABDOMEN LMTD HISTORY: [...] Prince Orozco DO on 12/28/2024 7:56 AM Normal [facility] [id number] ACTIVITY AND INHIBI TOR PROFILEon 12-27-2024 [id number] ACTIVITY <5 Low >=70 [facility] Comment on above: Result Comment: ADDITIONAL INFORMATION This test was developed and its performance characteristics determined by [facility] in a manner consistent with CLIA requirements. This test has not been cleared or approved by the U.S. Food and Drug Administration. Performed By: #### R ETIC #### [facility] ([facility]) [address] [place] [address] VIR [id number] ACTIVITY INTERPRETATION DNR Normal [facility] Comment on above: Performed By: #### R ETIC #### [facility] ([facility]) [address] [place] [address] VIR [id number] ASSAY CANCEL INTERPRETATION DNR Normal [facility] Comment on above: Performed By: #### R ETIC #### [facility] ([facility]) [address] [place] [address] VIR [id number] ASSAY INTERPRETATION SEE COMMENTS Normal [facility] Comment on above: Result Comment: Kobe mancera see [id number] Profile Interpretation for summary of [id number] Activity and [id number] Inhibitor Titer results. Test Performed by: [facility] [place] [address] Vest Front Presser: Gladys Alcocer Ph.D.; CLIA# [id number] Performed By: #### R ETIC #### [facility] ([facility]) [address] [place] [address] VIR [id number] INHIBITOR BETHESDA TITERon 12-27-2024 [id number] INHIBITOR TITER 0.6 BU High <0.5 [facility] Comment on above: Result Comment: ADDITIONAL INFORMATION This test was developed and its performance characteristics determined by [facility] in a manner consistent with CLIA requirements. This test has not been cleared or approved by the U.S. Food and Drug Administration. Test Performed by: [facility] [place] [address] Vest Front Presser: Gladys Alcocer Ph.D.; CLIA# [id number] Performed By: #### R ETIC #### [facility] ([facility]) [address] [place] [address] VIR [id number] INHIBITOR SCREENon 12-27-2024 [id number] CANCEL INTERPRETATION DNR Normal [facility] Comment on above: Performed By: #### R ETIC #### [facility] ([facility]) [address] [place] [address] VIR [id number] PROFILE INTERPRETATION SEE COMMENTS Normal [facility] Comment on above: Result Comment: Nesha chery reduced RWWZSD31 activity can be observed in congenital/hereditary or acquired, autoimmune thrombotic thrombocytopenia purpura (TTP), or occasionally in other conditions including hemolytic uremic syndrome (HUS), hematopoietic stem cell and solid organ transplantation, liver disease, sepsis, DIC, , or effects of certain medications (e.g., ticlopidine, clopidogrel, cyclosporin, mitomycin C, quinine, etc.). The [id number] inhibitor titering assay ([place] assay) confirms presence of an inhibitor. These results are consistent with congenital/hereditary TTP or acquired TTP with a neutralizing antibody. Recommend clinical correlation and consider future repeat testing to follow/verify these findings if clinically indicated. Non-specific substrate proteolysis by other plasma proteases or recent plasma transfusion or plasma exchange may falsely raise [id number] activity. Markedly elevated endogenous von Willebrand factor (VWF), hyperlipidemia, hyperbilirubinemia (greater than 6mg/dL) may falsely lower KLOMDL82 activity. Test Performed by: [facility] [place] [address] Vest Front Presser: Gladys Alcocer Ph.D.; CLIA# [id number] Performed By: #### R ETIC #### [facility] ([facility]) [address] [place] [address] VIR Jigsaw GENERIC TEST RESULT SEE NOTE Normal [facility] Comment on above: Result Comment: Test name Result Flag Units RefIntvl Hemoglobin, Plasma 5.4 mg/dL 0.0-9.7 Performed By: [facility] [address] [place] [address] Accounts Payable Or Receivable Clerk: Nacho Kapadia MD, PhD CLIA Number: [id number] Performed By: #### R ETIC #### [facility] ([facility]) [address] [place] [address] VIR CBC WITH AUTO DIFFERENTIALon 12-27-2024 BASOPHILS ABSOLUTE COUNT (10*3/UL) BY AUTOMATED COUNT 0.0 10*3/uL Normal [facility] Comment on above: Result Comment: This is an appended report. These results have been appended to a previously preliminary verified report. Performed By: #### B EDG #### [facility] ([facility]) [address] [place] [address] VIR BASOPHILS RELATIVE PERCENT BY AUTOMATED COUNT 0.4 % Normal [facility] Comment on above: Result Comment: This is an appended report. These results have been appended to a previously preliminary verified report. Performed By: #### B EDG #### [facility] ([facility]) [address] [place] [address] VIR CELLAVISION DIFFERENTIAL TYPE AUTOMATED DIFFERENTIAL Normal [facility] Comment on above: Result Comment: This is an appended report. These results have been appended to a previously preliminary verified report. Performed By: #### B EDG #### [facility] ([facility]) [address] [place] [address] VIR Eosinophils (Bld) [#/Vol] 0.0 10*3/uL Normal [facility] Comment on above: Result Comment: This is an appended report. These results have been appended to a previously preliminary verified report. Performed By: #### B EDG #### [facility] ([facility]) [address] [place] [address] VIR EOSINOPHILS RELATIVE PERCENT BY AUTOMATED COUNT 0.3 % Normal [facility] Comment on above: Result Comment: This is an appended report. These results have been appended to a previously preliminary verified report. Performed By: #### B EDG #### [facility] ([facility]) [address] [place] [address] VIR Erythrocyte distribution width (RBC) [Ratio] 15.0 % Normal 11.5-15 [facility] Comment on above: Performed By: #### B EDG #### [facility] ([facility]) [address] [place] [address] VIR Hematocrit (Bld) [Volume fraction] 36.0 % Normal 35-47 [facility] Comment on above: Performed By: #### B EDG #### [facility] ([facility]) [address] [place] [address] VIR Hemoglobin (Bld) [Mass/Vol] 11.8 g/dL Normal 11.7-15.5 [facility] Comment on above: Performed By: #### B EDG #### [facility] ([facility]) [address] [place] [address] VIR LYMPHOCYTES ABSOLUTE COUNT (10*3/UL) BY AUTOMATED COUNT 0.8 10*3/uL Normal [facility] Comment on above: Result Comment: This is an appended report. These results have been appended to a previously preliminary verified report. Performed By: #### B EDG #### [facility] ([facility]) [address] [place] [address] VIR LYMPHOCYTES RELATIVE PERCENT BY AUTOMATED COUNT 10.6 % Normal [facility] Comment on above: Result Comment: This is an appended report. These results have been appended to a previously preliminary verified report. Performed By: #### B EDG #### [facility] ([facility]) [address] [place] [address] VIR MCH (RBC) [Entitic mass] 28.3 pg Normal 27-34 [facility] Comment on above: Performed By: #### B EDG #### [facility] ([facility]) [address] [place] [address] VIR MCHC (RBC) [Mass/Vol] 32.8 g/dL Normal 32-36 [facility] Comment on above: Performed By: #### B EDG #### [facility] ([facility]) [address] [place] [address] VIR MCV (RBC) [Entitic vol] 86 fL Normal 80-100 [facility] Comment on above: Performed By: #### B EDG #### [facility] ([facility]) [address] [place] [address] VIR MONOCYTES ABSOLUTE COUNT (10*3/UL) BY AUTOMATED COUNT 0.1 10*3/uL Normal [facility] Comment on above: Result Comment: This is an appended report. These results have been appended to a previously preliminary verified report. Performed By: #### B EDG #### [facility] ([facility]) [address] [place] [address] VIR MONOCYTES RELATIVE PERCENT BY AUTOMATED COUNT 1.3 % Normal [facility] Comment on above: Result Comment: This is an appended report. These results have been appended to a previously preliminary verified report. Performed By: #### B EDG #### [facility] ([facility]) [address] [place] [address] VIR NEUTROPHILS ABSOLUTE COUNT BY AUTOMATED COUNT 6.2 10*3/uL Normal [facility] Comment on above: Result Comment: This is an appended report. These results have been appended to a previously preliminary verified report. Performed By: #### B EDG #### [facility] ([facility]) [address] [place] [address] VIR NEUTROPHILS RELATIVE PERCENT BY AUTOMATED COUNT 87.4 % Normal [facility] Comment on above: Result Comment: This is an appended report. These results have been appended to a previously preliminary verified report. Performed By: #### B EDG #### [facility] ([facility]) [address] [place] [address] VIR Platelet mean volume (Bld) [Entitic vol] 6.4 fL Low 7-12 [facility] Comment on above: Performed By: #### B EDG #### [facility] ([facility]) [address] [place] [address] VIR Platelets (Bld) [#/Vol] 34 10*3/uL Low 150-450 [facility] Comment on above: Performed By: #### B EDG #### [facility] ([facility]) [address] [place] [address] VIR RBC COUNT 4.17 X10E12/L Normal 3.8-5.2 [facility] Comment on above: Performed By: #### B EDG #### [facility] ([facility]) [address] [place] [address] VIR WBC (Bld) [#/Vol] 7.1 10*3/uL Normal 4-11 [facility] Comment on above: Performed By: #### B EDG #### [facility] ([facility]) [address] [place] [address] VIR BASOPHILS ABSOLUTE COUNT (10*3/UL) BY AUTOMATED COUNT 0.0 10*3/uL Normal [facility] Comment on above: Performed By: #### C BCA ####[facility] ([facility])[address], [place] [address] VIR BASOPHILS RELATIVE PERCENT BY AUTOMATED COUNT 0.4 % Normal [facility] Comment on above: Performed By: #### C BCA ####[facility] ([facility])[address], [place] [address] VIR CELLAVISION DIFFERENTIAL TYPE AUTOMATED DIFFERENTIAL Normal [facility] Comment on above: Performed By: #### C BCA ####[facility] ([facility])[address], [place] [address] VIR Eosinophils (Bld) [#/Vol] 0.2 10*3/uL Normal [facility] Comment on above: Performed By: #### C BCA ####[facility] ([facility])[address], [place] [address] VIR EOSINOPHILS RELATIVE PERCENT BY AUTOMATED COUNT 2.9 % Normal [facility] Comment on above: Performed By: #### C BCA ####[facility] ([facility])[address], [place] [address] VIR Erythrocyte distribution width (RBC) [Ratio] 14.9 % Normal 11.5-15 [facility] Comment on above: Performed By: #### C BCA ####[facility] ([facility])[address], [place] [address] VIR Hematocrit (Bld) [Volume fraction] 34.1 % Low 35-47 [facility] Comment on above: Performed By: #### C BCA ####[facility] ([facility])[address], [place] [address] VIR Hemoglobin (Bld) [Mass/Vol] 11.2 g/dL Low 11.7-15.5 [facility] Comment on above: Performed By: #### C BCA ####[facility] ([facility])[address], [place] [address] VIR LYMPHOCYTES ABSOLUTE COUNT (10*3/UL) BY AUTOMATED COUNT 1.8 10*3/uL Normal [facility] Comment on above: Performed By: #### C BCA ####[facility] ([facility])[address], [place] [address] VIR LYMPHOCYTES RELATIVE PERCENT BY AUTOMATED COUNT 26.6 % Normal [facility] Comment on above: Performed By: #### C BCA ####[facility] ([facility])[address], [place] [address] VIR MCH (RBC) [Entitic mass] 28.1 pg Normal 27-34 [facility] Comment on above: Performed By: #### C BCA ####[facility] ([facility])[address], [place] [address] VIR MCHC (RBC) [Mass/Vol] 32.7 g/dL Normal 32-36 [facility] Comment on above: Performed By: #### C BCA ####[facility] ([facility])[address], [place] [address] VIR MCV (RBC) [Entitic vol] 86 fL Normal 80-100 [facility] Comment on above: Performed By: #### C BCA ####[facility] ([facility])[address], [place] [address] VIR MONOCYTES ABSOLUTE COUNT (10*3/UL) BY AUTOMATED COUNT 0.6 10*3/uL Normal [facility] Comment on above: Performed By: #### C BCA ####[facility] ([facility])[address], [place] [address] VIR MONOCYTES RELATIVE PERCENT BY AUTOMATED COUNT 8.4 % Normal [facility] Comment on above: Performed By: #### C BCA ####[facility] ([facility])[address], [place] [address] VIR NEUTROPHILS ABSOLUTE COUNT BY AUTOMATED COUNT 4.2 10*3/uL Normal [facility] Comment on above: Performed By: #### C BCA ####[facility] ([facility])[address], [place] [address] VIR NEUTROPHILS RELATIVE PERCENT BY AUTOMATED COUNT 61.7 % Normal [facility] Comment on above: Performed By: #### C BCA ####[facility] ([facility])[address], [place] [address] VIR Platelet mean volume (Bld) [Entitic vol] 6.9 fL Low 7-12 [facility] Comment on above: Performed By: #### C BCA ####[facility] ([facility])[address], [place] [address] VIR Platelets (Bld) [#/Vol] 42 10*3/uL Low 150-450 [facility] Comment on above: Performed By: #### C BCA ####[facility] ([facility])[address], [place] [address] VIR RBC COUNT 3.97 X10E12/L Normal 3.8-5.2 [facility] Comment on above: Performed By: #### C BCA ####[facility] ([facility])[address], [place] [address] VIR WBC (Bld) [#/Vol] 6.8 10*3/uL Normal 4-11 [facility] Comment on above: Performed By: #### C BCA ####[facility] ([facility])[address], [place] [address] VIR COMPREHENSIVE METABOLIC PANE Luan 12-27-2024 Albumin [Mass/Vol] 3.6 g/dL Normal 3.2-5.3 [facility] Comment on above: Performed By: #### C MP #### [facility] ([facility]) [address] [place] [address] VIR ALP [Catalytic activity/Vol] 58 U/L Normal 39-130 [facility] Comment on above: Performed By: #### C MP #### [facility] ([facility]) [address] [place] [address] VIR ALT [Catalytic activity/Vol] 13 U/L Normal <=31 [facility] Comment on above: Performed By: #### C MP #### [facility] ([facility]) [address] [place] [address] VIR Anion gap [Moles/Vol] 8 mmol/L Normal 5-15 [facility] Comment on above: Performed By: #### C MP #### [facility] ([facility]) [address] [place] [address] VIR AST [Catalytic activity/Vol] 18 U/L Normal <=41 [facility] Comment on above: Performed By: #### C MP #### [facility] ([facility]) [address] [place] [address] VIR Bilirubin [Mass/Vol] 0.7 mg/dL Normal 0.3-1.2 [facility] Comment on above: Performed By: #### C MP #### [facility] ([facility]) [address] [place] [address] VIR Calcium [Mass/Vol] 8.9 mg/dL Normal 8.5-10.5 [facility] Comment on above: Performed By: #### C MP #### [facility] ([facility]) [address] [place] [address] VIR Chloride [Moles/Vol] 106 mmol/L Normal 98-109 [facility] Comment on above: Performed By: #### C MP #### [facility] ([facility]) [address] [place] [address] VIR CO2 [Moles/Vol] 24 mmol/L Normal 22-32 [facility] Comment on above: Performed By: #### C MP #### [facility] ([facility]) [address] [place] [address] VIR Creatinine [Mass/Vol] 0.91 mg/dL Normal 0.40-1.00 [facility] Comment on above: Result Comment: METH OD TRACEABLE TO IDMS STANDARD Performed By: #### C MP #### [facility] ([facility]) [address] [place] [address] VIR GFR/1.73 sq M.predicted among non-blacks MDRD (S/P/Bld) [Vol rate/Area] 78 mL/min/{1.73_m2} Normal >=60 [facility] Comment on above: Result Comment: Repo rted eGFR is based on the CKD-EPI 2020 equation that does not use a race coefficient. Performed By: #### C MP #### [facility] ([facility]) [address] [place] [address] VIR Glucose [Mass/Vol] 139 mg/dL High 65-99 [facility] Comment on above: Performed By: #### C MP #### [facility] ([facility]) [address] [place] [address] VIR Potassium [Moles/Vol] 3.8 mmol/L Normal 3.5-5.0 [facility] Comment on above: Performed By: #### C MP #### [facility] ([facility]) [address] [place] [address] VIR Protein [Mass/Vol] 5.7 g/dL Low 6.0-8.0 [facility] Comment on above: Performed By: #### C MP #### [facility] ([facility]) [address] [place] [address] VIR Sodium [Moles/Vol] 138 mmol/L Normal 134-146 [facility] Comment on above: Performed By: #### C MP #### [facility] ([facility]) [address] [place] [address] VIR Urea nitrogen [Mass/Vol] 12 mg/dL Normal 5-23 [facility] Comment on above: Performed By: #### C MP #### [facility] ([facility]) [address] [place] [address] BRAIN WO CONTon CT BRAIN WO CONT CT BRAIN WO CONT STUDY: CT HEAD [...] Mando Hicks MD on 12/27/2024 7:30 AM Normal [facility] DIRECT COOMBSon 12-27-2024 POLYSPECIFIC PB Negative Normal [facility] Comment on above: Performed By: #### D ATB ####[facility] ([facility])[address] [place] [address] VIR FOLATEon 12-27-2024 FOLIC ACID 11.6 ng/mL Normal >5.8 [facility] Comment on above: Performed By: #### F MIGUEL ####[facility] ([facility])[address] [address] VIR HEMOSIDERIN, RANDOM, URINEon 12-27-2024 HEMOSIDERIN, URINE Negative Normal Negative [facility] Comment on above: Result Comment: ADDITIONAL INFORMATION This test was developed and its performance characteristics determined by [facility] in a manner consistent with CLIA requirements. This test has not been cleared or approved by the U.S. Food and Drug Administration. Test Performed by: [facility] [place] [address] Vest Front Presser: Gladys Alcocer Ph.D.; CLIA# [id number] Performed By: #### C MP #### [facility] ([facility]) [address] [place] [address]. [place] [address] VIR LDHon 12-27-2024 LDH 302 U/L High 100-235 [facility] Comment on above: Performed By: #### B EDG #### [facility] ([facility]) [address] [place] [address] VIR LDH 353 U/L High 100-235 [facility] Comment on above: Result Comment: R-Sp ecimen slightly hemolyzed, results increased Performed By: #### L DH ####[facility] ([facility])[address] [address] VIR LIPID PROFILEon 12-27-2024 Cholesterol [Mass/Vol] 156 mg/dL Normal 150-200 [facility] Comment on above: Order Comment: fasti ng Performed By: #### L IPR #### [facility] ([facility]) [address] [place] [address] VIR Cholesterol in HDL [Mass/Vol] 36 mg/dL Low >39 [facility] Comment on above: Order Comment: fasti ng Result Comment: HDL <40 mg/dL - High Risk HDL > or = 40mg/dL- Desirable HDL >60 mg/dL - Negative Risk Performed By: #### L IPR #### [facility] ([facility]) [address] [place] [address] VIR Cholesterol in LDL [Mass/Vol] 95 mg/dL Normal <130 [facility] Comment on above: Order Comment: fasti ng Result Comment: LDL <100 mg/dL - Desirable LDL >160 mg/dL - High Risk Performed By: #### L IPR #### [facility] ([facility]) [address] [place] [address] VIR CHOLESTEROL:HDL 4.3 Normal 1.0-5.0 [facility] Comment on above: Order Comment: fasti ng Performed By: #### L IPR #### [facility] ([facility]) [address] [place] [address] VIR Triglyceride [Mass/Vol] 123 mg/dL Normal 27-150 [facility] Comment on above: Order Comment: fasti ng Performed By: #### L IPR #### [facility] ([facility]) [address] [place] [address] VIR VERY LOW LIPOPROTEIN 25 mg/dL Normal 0-30 [facility] Comment on above: Order Comment: fasti ng Performed By: #### L IPR #### [facility] ([facility]) [address] [place] [address] VIR PLATELET COUNTon 12-27-2024 Platelets (Bld) [#/Vol] 39 10*3/uL Low 150-450 [facility] Comment on above: Performed By: #### P LTCT ####[facility] ([facility])[address] [address] VIR POTASSIUMon 12-27-2024 Potassium [Moles/Vol] 4.4 mmol/L Normal 3.5-5.0 [facility] Comment on above: Performed By: #### K ####[facility] LABORATORY ([facility])[address], [place] [address] VIR UNLISTED LAB TESTon 12-28-19 25 UNLISTED LAB TEST LOOK UNLISTED LAB TE ST Cancelled Normal [facility] VITAMIN B12on 12-27-2024 Cobalamin (Vitamin B12) [Mass/Vol] 254 pg/mL Normal 180-914 [facility] Comment on above: Performed By: #### B 12 ####[facility] ([facility])[address], [place] [address] VIR APTTon 12-26-2024 aPTT Coag (Bld) [Time] 29 s Normal 26-37 [facility] Comment on above: Performed By: #### P TT ####[facility] ([address] [place] [address] VIR BASIC METABOLIC PANELon 11-29 Anion gap [Moles/Vol] 6 mmol/L Normal 5-15 [facility] Comment on above: Performed By: #### B MP ####[facility] ([address] [place] [address] VIR Performed By: #### C MP #### [facility] ([address] [place] [address] VIR Calcium [Mass/Vol] 9.3 mg/dL Normal 8.5-10.5 [facility] Comment on above: Performed By: #### B MP ####[facility] ([address] [place] [address] VIR Chloride [Moles/Vol] 104 mmol/L Normal 98-109 [facility] Comment on above: Performed By: #### B MP ####[facility] ([address] [place] [address] VIR CO2 [Moles/Vol] 26 mmol/L Normal 22-32 [facility] Comment on above: Performed By: #### B MP ####[facility] ([address] [place] [address] VIR Performed By: #### C MP #### [facility] ([address] [place] [address] VIR Creatinine [Mass/Vol] 1.01 mg/dL High 0.40-1.00 [facility] Comment on above: Result Comment: METH OD TRACEABLE TO IDMS STANDARD Performed By: #### B MP ####[facility] ([address] [place] [address] VIR GFR/1.73 sq M.predicted among non-blacks MDRD (S/P/Bld) [Vol rate/Area] 69 mL/min/{1.73_m2} Normal >=60 [facility] Comment on above: Result Comment: eGFR not reported due to non-numeric value for Creatinine. Reported eGFR is based on the CKD-EPI 2020 equation that does not use a race coefficient. Performed By: #### B MP ####[facility] ([address] [place] [address] VIR Glucose [Mass/Vol] 99 mg/dL Normal 65-99 [facility] Comment on above: Performed By: #### B MP ####[facility] ([address] [place] [address] VIR Potassium [Moles/Vol] 3.9 mmol/L Normal 3.5-5.0 [facility] Comment on above: Performed By: #### B MP ####[facility] ([address] [place] [address] VIR Performed By: #### C MP #### [facility] ([address] [place] [address] VIR Sodium [Moles/Vol] 136 mmol/L Normal 134-146 [facility] Comment on above: Performed By: #### B MP ####[facility] ([address] [place] [address] VIR Urea nitrogen [Mass/Vol] 16 mg/dL Normal 5-23 [facility] Comment on above: Performed By: #### B MP ####[facility] ([facility])[address] [place] [address] VIR BEDSIDE GLUCOSEon 12-26-2024 Glucose [Mass/Vol] 85 mg/dL Normal 65-99 [facility] Comment on above: Performed By: #### B EDG #### [facility] ([facility]) [address] [place] [address] VIR CBC WITH AUTO DIFFERENTIALon 12-26-2024 BASOPHILS ABSOLUTE COUNT (10*3/UL) BY AUTOMATED COUNT 0.1 10*3/uL Normal [facility] Comment on above: Performed By: #### C BCA #### [facility] ([facility]) [address] [place] [address] VIR BASOPHILS RELATIVE PERCENT BY AUTOMATED COUNT 1.0 % Normal [facility] Comment on above: Performed By: #### C BCA #### [facility] ([facility]) [address] [place] [address] VIR CELLAVISION DIFFERENTIAL TYPE AUTOMATED DIFFERENTIAL Normal [facility] Comment on above: Performed By: #### C BCA #### [facility] ([facility]) [address] [place] [address] VIR Eosinophils (Bld) [#/Vol] 0.2 10*3/uL Normal [facility] Comment on above: Performed By: #### C BCA #### [facility] ([facility]) [address] [place] [address] VIR EOSINOPHILS RELATIVE PERCENT BY AUTOMATED COUNT 2.6 % Normal [facility] Comment on above: Performed By: #### C BCA #### [facility] ([facility]) [address] [place] [address] VIR Erythrocyte distribution width (RBC) [Ratio] 15.0 % Normal 11.5-15 [facility] Comment on above: Performed By: #### C BCA #### [facility] ([facility]) [address] [place] [address] VIR Hematocrit (Bld) [Volume fraction] 36.2 % Normal 35-47 [facility] Comment on above: Performed By: #### C BCA #### [facility] ([facility]) [address] [facility] [address] [place] [address] VIR Hemoglobin (Bld) [Mass/Vol] 12.1 g/dL Normal 11.7-15.5 [facility] Comment on above: Performed By: #### C BCA #### [facility] ([facility]) [address] [facility] [address] [place] [address] VIR LYMPHOCYTES ABSOLUTE COUNT (10*3/UL) BY AUTOMATED COUNT 2.4 10*3/uL Normal [facility] Comment on above: Performed By: #### C BCA #### [facility] ([facility]) [address] [facility] [address] [place] [address] VIR LYMPHOCYTES RELATIVE PERCENT BY AUTOMATED COUNT 35.3 % Normal [facility] Comment on above: Performed By: #### C BCA #### [facility] ([facility]) [address] [facility] [address] [place] [address] VIR MCH (RBC) [Entitic mass] 28.7 pg Normal 27-34 [facility] Comment on above: Performed By: #### C BCA #### [facility] ([facility]) [address] [facility] [address] [place] [address] VIR MCHC (RBC) [Mass/Vol] 33.3 g/dL Normal 32-36 [facility] Comment on above: Performed By: #### C BCA #### [facility] ([facility]) [address] [place] [address] VIR MCV (RBC) [Entitic vol] 86 fL Normal 80-100 [facility] Comment on above: Performed By: #### C BCA #### [facility] ([facility]) [address] [place] [address] VIR MONOCYTES ABSOLUTE COUNT (10*3/UL) BY AUTOMATED COUNT 0.4 10*3/uL Normal [facility] Comment on above: Performed By: #### C BCA #### [facility] ([facility]) [address] [place] [address] VIR MONOCYTES RELATIVE PERCENT BY AUTOMATED COUNT 6.2 % Normal [facility] Comment on above: Performed By: #### C BCA #### [facility] ([facility]) [address] [place] [address] VIR NEUTROPHILS ABSOLUTE COUNT BY AUTOMATED COUNT 3.7 10*3/uL Normal [facility] Comment on above: Performed By: #### C BCA #### [facility] ([facility]) [address] [place] [address] VIR NEUTROPHILS RELATIVE PERCENT BY AUTOMATED COUNT 54.9 % Normal [facility] Comment on above: Performed By: #### C BCA #### [facility] ([facility]) [address] [place] [address] VIR Platelet mean volume (Bld) [Entitic vol] 7.1 fL Normal 7-12 [facility] Comment on above: Result Comment: I-R Performed By: #### C BCA #### [facility] ([facility]) [address] [place] [address] VIR Platelets (Bld) [#/Vol] 27 10*3/uL Critically low 150-450 [facility] Comment on above: Result Comment: I-R Performed By: #### C BCA #### [facility] ([facility]) [address] [place] [address] VIR RBC COUNT 4.20 X10E12/L Normal 3.8-5.2 [facility] Comment on above: Performed By: #### C BCA #### [facility] ([facility]) [address] [place] [address] VIR WBC (Bld) [#/Vol] 6.8 10*3/uL Normal 4-11 [facility] Comment on above: Performed By: #### C BCA #### [facility] ([facility]) [address] [place] [address] VIR BASOPHILS ABSOLUTE COUNT (10*3/UL) BY AUTOMATED COUNT 0.0 10*3/uL Normal [facility] Comment on above: Performed By: #### C BCA ####[facility] ([facility])[address] [place] [address] VIR BASOPHILS RELATIVE PERCENT BY AUTOMATED COUNT 0.7 % Normal [facility] Comment on above: Performed By: #### C BCA ####[facility] ([address] [address] VIR CELLAVISION DIFFERENTIAL TYPE AUTOMATED DIFFERENTIAL Normal [facility] Comment on above: Performed By: #### C BCA ####[facility] ([address] [address] VIR Eosinophils (Bld) [#/Vol] 0.2 10*3/uL Normal [facility] Comment on above: Performed By: #### C BCA ####[facility] ([address] [address] VIR EOSINOPHILS RELATIVE PERCENT BY AUTOMATED COUNT 3.0 % Normal [facility] Comment on above: Performed By: #### C BCA ####[facility] ([address] [address] VIR Erythrocyte distribution width (RBC) [Ratio] 15.2 % High 11.5-15 [facility] Comment on above: Performed By: #### C BCA ####[facility] ([facility])[address] [place] [address] VIR Hematocrit (Bld) [Volume fraction] 37.3 % Normal 35-47 [facility] Comment on above: Performed By: #### C BCA ####[facility] ([address] [address] VIR Hemoglobin (Bld) [Mass/Vol] 12.5 g/dL Normal 11.7-15.5 [facility] Comment on above: Performed By: #### C BCA ####[facility] ([address] [address] VIR LYMPHOCYTES ABSOLUTE COUNT (10*3/UL) BY AUTOMATED COUNT 2.5 10*3/uL Normal [facility] Comment on above: Performed By: #### C BCA ####[facility] ([address] [address] VIR LYMPHOCYTES RELATIVE PERCENT BY AUTOMATED COUNT 32.7 % Normal [facility] Comment on above: Performed By: #### C BCA ####[facility] ([address] [address] VIR MCH (RBC) [Entitic mass] 28.9 pg Normal 27-34 [facility] Comment on above: Performed By: #### C BCA ####[facility] ([address] [address] VIR MCHC (RBC) [Mass/Vol] 33.5 g/dL Normal 32-36 [facility] Comment on above: Performed By: #### C BCA ####[facility] ([address] [address] VIR MCV (RBC) [Entitic vol] 86 fL Normal 80-100 [facility] Comment on above: Performed By: #### C BCA ####[facility] ([address] [address] VIR MONOCYTES ABSOLUTE COUNT (10*3/UL) BY AUTOMATED COUNT 0.6 10*3/uL Normal [facility] Comment on above: Performed By: #### C BCA ####[facility] ([address] [place] [address] VIR MONOCYTES RELATIVE PERCENT BY AUTOMATED COUNT 7.3 % Normal [facility] Comment on above: Performed By: #### C BCA ####[facility] ([address] [place] [address] VIR NEUTROPHILS ABSOLUTE COUNT BY AUTOMATED COUNT 4.2 10*3/uL Normal [facility] Comment on above: Performed By: #### C BCA ####[facility] ([address] [place] [address] VIR NEUTROPHILS RELATIVE PERCENT BY AUTOMATED COUNT 56.3 % Normal [facility] Comment on above: Performed By: #### C BCA ####[facility] ([address] [place] [address] VIR Platelet mean volume (Bld) [Entitic vol] 6.9 fL Low 7-12 [facility] Comment on above: Performed By: #### C BCA ####[facility] ([address] [address] VIR Platelets (Bld) [#/Vol] 32 10*3/uL Low 150-450 [facility] Comment on above: Result Comment: M-Pl atelet count reviewed Performed By: #### C BCA ####[facility] ([address] [place] [address] VIR RBC COUNT 4.31 X10E12/L Normal 3.8-5.2 [facility] Comment on above: Performed By: #### C BCA ####[facility] ([address] [place] [address] VIR WBC (Bld) [#/Vol] 7.5 10*3/uL Normal 4-11 [facility] Comment on above: Performed By: #### C BCA ####[facility] ([facility])[address] [place] [address] VIR COMPREHENSIVE METABOLIC PANE Luan 12-26-2024 Albumin [Mass/Vol] 4.0 g/dL Normal 3.2-5.3 [facility] Comment on above: Performed By: #### C MP #### [facility] ([facility]) [address] [place] [address] VIR ALP [Catalytic activity/Vol] 83 U/L Normal 39-130 [facility] Comment on above: Performed By: #### C MP #### [facility] ([place] [address] [place] [address] VIR ALT [Catalytic activity/Vol] 17 U/L Normal <=31 [facility] Comment on above: Performed By: #### C MP #### [facility] ([place] [address] [place] [address] VIR AST [Catalytic activity/Vol] 20 U/L Normal <=41 [facility] Comment on above: Performed By: #### C MP #### [facility] ([place] [address] [place] [address] VIR Bilirubin [Mass/Vol] 0.9 mg/dL Normal 0.3-1.2 [facility] Comment on above: Performed By: #### C MP #### [facility] ([place] [address] [place] [address] VIR Calcium [Mass/Vol] 9.5 mg/dL Normal 8.5-10.5 [facility] Comment on above: Performed By: #### C MP #### [facility] ([place] [address] [place] [address] VIR Chloride [Moles/Vol] 106 mmol/L Normal 98-109 [facility] Comment on above: Performed By: #### C MP #### [facility] ([place] [address] [place] [address] VIR Creatinine [Mass/Vol] 1.08 mg/dL High 0.40-1.00 [facility] Comment on above: Result Comment: METH OD TRACEABLE TO IDMS STANDARD Performed By: #### C MP #### [facility] ([address] [address] VIR GFR/1.73 sq M.predicted among non-blacks MDRD (S/P/Bld) [Vol rate/Area] 64 mL/min/{1.73_m2} Normal >=60 [facility] Comment on above: Result Comment: eGFR not reported due to non-numeric value for Creatinine. Reported eGFR is based on the CKD-EPI 2020 equation that does not use a race coefficient. Performed By: #### C MP #### [facility] ([address] [address] VIR Glucose [Mass/Vol] 100 mg/dL High 65-99 [facility] Comment on above: Performed By: #### C MP #### [facility] ([address] [address] VIR Protein [Mass/Vol] 6.9 g/dL Normal 6.0-8.0 [facility] Comment on above: Performed By: #### C MP #### [facility] ([address] [address] VIR Sodium [Moles/Vol] 138 mmol/L Normal 134-146 [facility] Comment on above: Performed By: #### C MP #### [facility] ([address] [address] VIR Urea nitrogen [Mass/Vol] 15 mg/dL Normal 5-23 [facility] Comment on above: Performed By: #### C MP #### [facility] ([address] [place] [address] BRAIN WO CONTon 5 CT BRAIN WO CONT CT BRAIN WO CONT CT BRAIN WO [...] Hi Streeter MD on 12/26/2024 5:09 PM Normal [facility] CT BRAIN WO CONT STROKE ALER Ton 12-26-2024 CT BRAIN WO CONT STROKE ALERT CT BRAIN WO CONT STROKE ALERT CT BRAIN WO CONT STROKE ALERT INDICATION: [...] Mike Cunningham MD on 12/26/2024 2:14 PM Normal [facility] CT CEREBRAL PERF ANALYSISon 12-26-[address] CEREBRAL PERF ANALYSIS CT BRAIN PERFUSION IMAGING: HISTORY: strke TECHNIQUE: Axial CT brain perfusion was performed during intravenous administration of 40 mL Omnipaque 350. Postprocessing with RAPID and/or Xcelianto Via software was used. Specifically, maps of cerebral blood flow, cerebral blood volume, mean transit time and Tmax were calculated by using the perfusion source data. COMPARISON: CT brain same date. Image quality: Sufficient Arterial input function GEMA selected: Proximal left MCA Venous outflow function GEMA: [place] of sinuses FINDINGS: CT Perfusion Characteristics: CBF<30% [...] Prince Orozco DO on 12/26/2024 4:42 PM [facility] CT CTA CAROTIDon 12-26-[address] CTA CAROTID CLINICAL INFORMATION: stroke alert TECHNIQUE: CT angiogram performed following intravenous administration of nonionic intravenous contrast. Coronal and sagittal and 3-D volume rendered maximum intensity projection images generated and reviewed under concurrent physician supervision. Automated exposure control utilized. The [place] Symptomatic Carotid Endarterectomy Trial (NASCET) method for [...] recommend dedicated evaluation with ultrasound. Finalized by Vanessa Rivera MD on 12/26/2024 2:43 PM Normal [facility] CT CTA HEADon 12-26-[address] CTA HEAD CLINICAL INFORMATION: stroke alert [...] on 12/26/2024 at 2:47 PM Finalized by Vanessa Rivera MD on 12/26/2024 2:51 PM Normal [facility] HAPTOGLOBINon 12-26-2024 HAPTOGLOBIN <^30 Low 32-228 [facility] Comment on above: Performed By: #### H APT #### [facility] ([facility]) [address] [place] [address] VIR PLATELET COUNTon 12-26-2024 Platelets (Bld) [#/Vol] 14 10*3/uL Critically low 150-450 [facility] Comment on above: Result Comment: I-R Performed By: #### P LTCT ####[facility] ([facility])[address], [place] [address] VIR PROTIME AND INRon 12-26-2024 INR 0.9 Normal 0.9-1.2 [facility] Comment on above: Performed By: #### P INR ####[facility] ([facility])[address] [place] [address] VIR PT Coag (PPP) [Time] 10.3 s Normal 9.8-13.2 [facility] Comment on above: Performed By: #### P INR ####[facility] ([facility])[address] [facility] [address] [place] [address] VIR RETICULOCYTESon 12-26-2024 RETICULOCYTE COUNT 2.0 % Normal 0.4-2.2 [facility] Comment on above: Performed By: #### R ETIC #### [facility] ([facility]) [address] [place] [address] VIR TROPONIN I, HIGH SENSITIVITY 0 HOURon 12-26-2024 TROPONIN I, HIGH SENSITIVITY 373 ng/L High <16 [facility] Comment on above: Performed By: #### T NIHS0 ####[facility] ([facility])[address] [facility] [address] [place] [address] VIR TYPE AND SCREENon 12-26-2024 ABO_INTEP O Normal [facility] Comment on above: Performed By: #### T SC #### [facility] ([facility]) [address] [facility] [place] [address] VIR RH_INTEP Negative Normal [facility] Comment on above: Performed By: #### T SC #### [facility] ([facility]) [address] [place] [address] VIR IGP,APTIMA HPV,AGE GDLNon AGE GDLN ACOG TESTING Note . [facility] Comment on above: TESTS RESULT FLAG UN ITS REF RANGE LAB Clinician Provided Cytology Information Source.............Cervix;Endocervix No. of containers..01 ThinPrep Vial Age Algo ACOG Cristina... FLAG LEGEND: L-Low Normal,H-High Normal,LL-Alert Low,HH-Alert High <-Panic Low,>-Panic High,A-Abnormal,AA-Critical Abnormal Performed at: 01 =[address] [id number] Charlotte Wu MD, HPV APTIMA Negative Negative [facility] Comment on above: This nucleic acid am plification test detects fourteen high- risk HPV types (16,18,31,33,35,39,45,51,52,56,58,59,66,68) without differentiation. Performed at: =[address] [id number] Vest Front Presser: Charlotte Wu MD, Phone: [phone] Performed at: [address] [id number] [place] Front Presser: Charlotte Wu MD, Phone: [phone] IGP, APTIMA HPV, RFX 16/18,[address] [facility] Comment on above: TESTS RESULT FLAG UN ITS REF RANGE LAB DIAGNOSIS: 02 NEGATIVE FOR INTRAEPITHELIAL LESION OR MALIGNANCY. Specimen adequacy: 02 Satisfactory for evaluation. No endocervical component is identified. Performed by: 02 Remi Matt Glass Handler (ASCP) . 02 Note: Note 02 The Pap smear is a screening test designed to aid in the detection of premalignant and malignant conditions of the uterine cervix. It is not a diagnostic procedure and should not be used as the sole means of detecting cervical cancer. Both false-positive and false-negative reports do occur. Test Methodology: Note 02 This liquid based ThinPrep(R) pap test was screened with the use of an image guided system. HPV Genotype Reflex Note 02 Criteria not met, HPV Genotype not performed. FLAG LEGEND: L-Low Normal,H-High Normal,LL-Alert Low,HH-Alert High <-Panic Low,>-Panic High,A-Abnormal,AA-Critical Abnormal Performed at: [address] [place] [address] Charlotte Wu MD, BRUSH-SPATULA CERVIX ENDOCERVIX CLINISYNC [facility] RECURRENT VAGINITIS (HTRX)on 09-06-[address] [facility] ATOPOBIUM VAGINAE Not detected [facility] BVAB 2,3 (BACTERIAL VAGINOSIS ASSOCIATED BACTERIA 2, 3); MOBILUNCUS SPP 0 [facility] BVAB 2,3 (BACTERIAL VAGINOSIS ASSOCIATED BACTERIA 2, 3); MOBILUNCUS SPP Not detected [facility] ZULEYMA ALBICANS, PARAPSILOSIS, TROPICALIS 0 [facility] ZULEYMA ALBICANS, PARAPSILOSIS, TROPICALIS Not detected [facility] ZULEYMA GLABRATA 0 [facility] ZULEYMA GLABRATA Not detected [facility] ZULEYMA KRUSEI 0 [facility] ZULEYMA KRUSEI Not [facility] 0 [facility] CHLAMYDIA TRACHOMATIS Not detected [facility] GARDNERELLA VAGINALIS 0 [facility] GARDNERELLA VAGINALIS Not detected [facility] HERPES SIMPLEX VIRUS [address] [facility] HERPES SIMPLEX VIRUS [address] [facility] HERPES SIMPLEX VIRUS [address] [facility] HERPES SIMPLEX VIRUS [address] [facility] Interpretation and review of laboratory results Abnormal [facility] MEGASPHAERA (TYPES 1, 2) 0 [facility] MEGASPHAERA (TYPES 1, 2) Not detected [facility] MYCOPLASMA GENITALIUM 0 [facility] MYCOPLASMA GENITALIUM Not detected [facility] NEISSERIA GONORRHOEAE 0 [facility] NEISSERIA GONORRHOEAE Not detected [facility] TRICHOMONAS VAGINALIS 24.[address] [facility] TRICHOMONAS VAGINALIS Detected Abnormal [facility] XR SPINE THORACIC 3 VWSon XR SPINE THORACIC 3 VWS XR SPINE THORACIC 3 VWS CLINICAL INFORMATION: back pain TECHNIQUE: XR SPINE THORACIC 3 VWS 3 views thoracic spine were obtained. There is no thoracic malalignment or compression. Endplates appear intact. No fracture. Posterior elements unremarkable. IMPRESSION: No acute findings. Finalized by Nicolás Figueroa MD on 08/15/2024 5:43 PM Normal [facility] XR RIBS BILAT W PA CHEST MIN 4 VWon 05-15-2024 XR RIBS BILAT W PA CHEST MIN [...] Gilberto Flor MD on 05/15/2024 12:16 AM Normal [facility] XR SPINE CERVICAL 3 VWS OR L ESSon 05-15-2024 XR SPINE CERVICAL 3 VWS OR LESS XR SPINE CERVICAL 3 VWS OR LESS XR SPINE CERVICAL 3 VWS OR LESS [...] Gilberto Flor MD on 05/15/2024 12:17 AM Normal [facility] XR SPINE LUMBAR 2 OR 3 VWSon 05-15-2024 XR SPINE LUMBAR 2 OR 3 VWS [...] Gilberto Flor MD on 05/15/2024 12:18 AM Normal [facility] XR SPINE THORACIC 2 VWSon XR SPINE THORACIC 2 VWS XR SPINE THORACIC 2 VWS XR SPINE THORACIC 2 VWS Clinical history:Chronic back pain, unspecified back location, unspecified back pain laterality Comparison: None. Findings: Multilevel degenerative disc disease with disco loss and endplate degenerative changes. No acute process fracture dislocation. Impression: Multilevel degenerative disc disease. No evidence of acute osseous abnormality. Finalized by Gilberto Flor MD on 05/15/2024 12:17 AM Normal [facility] XR SHOULDER RT MIN 2 VWSon 0 05-12-2024 XR SHOULDER RT MIN 2 VWS XR SHOULDER RT MIN 2 VWS CLINICAL INFORMATION: Chronic right shoulder pain TECHNIQUE: XR SHOULDER RT MIN 2 VWS 3 views the right shoulder were obtained. Mild AC joint degenerative changes noted. Is also mild glenohumeral degeneration. No acute fractures seen. No dislocation. IMPRESSION: Mild degenerative changes. Finalized by Nicolás Figueroa MD on 05/12/2024 3:49 PM Normal [facility] MAMM SCREENING BILATERAL W C director experimental medicine 03-09-2024 MAMM SCREENING BILATERAL W CAD MAMM SCREENING BILATERAL W CAD EXAM: MAMM SCREENING BILATERAL W CAD, 03/09/2024 [...] 12:22 PM 1 a MAMM 1 YR Normal [facility] Vital Signs Date Time Vital Sign Value Performing Clinician Facility 01-16-2025 12:13-0400 Body temperature 98.49 [degF] Moris Rice MD Work Phone: [facility] 01-16-2025 12:13-0400 Diastolic blood pressure 62 mm[Hg] Moris Rice MD Work Phone: [facility] 01-16-2025 12:13-0400 Heart rate 75 /min Moris Rice MD Work Phone: [facility] 01-16-2025 12:13-0400 Respiratory rate 17 /min Moris Rice MD Work Phone: [facility] 01-16-2025 12:13-0400 SaO2% (BldA) [Mass fraction] 99 % Moris Rice MD Work Phone: [facility] 01-16-2025 12:13-0400 Systolic blood pressure 105 mm[Hg] Moris Rice MD Work Phone: [facility] 01-15-2025 18:22-0400 Body height 154.9 cm Moris Rice MD Work Phone: [facility] 01-15-2025 18:22-0400 Body mass index (BMI) [Ratio] 43.33 kg/m2 Moris Rice MD Work Phone: [facility] 01-15-2025 18:22-0400 Body weight 104.01 kg Moris Rice MD Work Phone: [facility] 09-28-2024 15:07-0500 Body height 157.5 cm Destin Hubbard MD Work Phone: [facility] 09-28-2024 15:07-0500 Body mass index (BMI) [Ratio] 37.86 kg/m2 Destin Hubbard MD Work Phone: [facility] 09-28-2024 15:07-0500 Body temperature 97.11 [degF] Destin Hubbard MD Work Phone: [facility] 09-28-2024 15:07-0500 Body weight 93.89 kg Destin Hubbard MD Work Phone: [facility] 09-28-2024 15:07-0500 Diastolic blood pressure 60 mm[Hg] Destin Hubbard MD Work Phone: [facility] 09-28-2024 15:07-0500 Heart rate 72 /min Destin Hubbard MD Work Phone: [facility] 09-28-2024 15:07-0500 Respiratory rate 22 /min Destin Hubbard MD Work Phone: [facility] 09-28-2024 15:07-0500 SaO2% (BldA) [Mass fraction] 99 % Destin Hubbard MD Work Phone: [facility] 09-28-2024 15:07-0500 Systolic blood pressure 110 mm[Hg] Destin Hubbard MD Work Phone: [facility] 09-05-2024 13:43-0500 Body height 157.5 cm Blayne Juan Carlos DO Work Phone: [facility] 09-05-2024 13:43-0500 Body mass index (BMI) [Ratio] 37.86 kg/m2 Blayne Juan Carlos DO Work Phone: [facility] 09-05-2024 13:43-0500 Body weight 93.89 kg Blayne Juan Carlos DO Work Phone: [facility] 09-05-2024 13:43-0500 Diastolic blood pressure 64 mm[Hg] Blayne Juan Carlos DO Work Phone: [facility] 09-05-2024 13:43-0500 Systolic blood pressure 100 mm[Hg] Blayne Juan Carlos DO Work Phone: [facility] 08-28-2024 13:44-0500 Body height 154.9 cm Destin Hubbard MD Work Phone: [facility] 08-28-2024 13:44-0500 Body mass index (BMI) [Ratio] 39.3 kg/m2 Destin Hubbard MD Work Phone: [facility] 08-28-2024 13:44-0500 Body temperature 97.11 [degF] Destin Hubbard MD Work Phone: [facility] 08-28-2024 13:44-0500 Body weight 94.35 kg Destin Hubbard MD Work Phone: [facility] 08-28-2024 13:44-0500 Diastolic blood pressure 66 mm[Hg] Destin Hubbard MD Work Phone: [facility] 08-28-2024 13:44-0500 Heart rate 101 /min Destin Hubbard MD Work Phone: [facility] 08-28-2024 13:44-0500 Respiratory rate 20 /min Destin Hubbrad MD Work Phone: [facility] 08-28-2024 13:44-0500 SaO2% (BldA) [Mass fraction] 97 % Destin Hubbard MD Work Phone: [facility] 08-28-2024 13:44-0500 Systolic blood pressure 122 mm[Hg] Destin Hubbard MD Work Phone: [facility] 06-02-2024 10:40-0400 Body height 154.9 cm Destin Hubbard MD Work Phone: [facility] 06-02-2024 10:40-0400 Body mass index (BMI) [Ratio] 37.79 kg/m2 Destin Hubbard MD Work Phone: [facility] 06-02-2024 10:40-0400 Body temperature 96.6 [degF] Destin Hubbard MD Work Phone: [facility] 06-02-2024 10:40-0400 Body weight 90.72 kg Destin Hubbard MD Work Phone: [facility] 06-02-2024 10:40-0400 Diastolic blood pressure 58 mm[Hg] Destin Hubbard MD Work Phone: [facility] 06-02-2024 10:40-0400 Heart rate 84 /min Destin Hubbard MD Work Phone: [facility] 06-02-2024 10:40-0400 Respiratory rate 20 /min Destin Hubbard MD Work Phone: [facility] 06-02-2024 10:40-0400 SaO2% (BldA) [Mass fraction] 99 % Destin Hubbard MD Work Phone: [facility] 06-02-2024 10:40-0400 Systolic blood pressure 110 mm[Hg] Destin Hubbard MD Work Phone: [facility] 05-10-2024 09:44-0400 Body height 154.9 cm Destin Hubbard MD Work Phone: [facility] 05-10-2024 09:44-0400 Body mass index (BMI) [Ratio] 37.79 kg/m2 Destin Hubbard MD Work Phone: [facility] 05-10-2024 09:44-0400 Body temperature 97.11 [degF] Destin Hubbard MD Work Phone: [facility] 05-10-2024 09:44-0400 Body weight 90.72 kg Destin Hubbard MD Work Phone: [facility] 05-10-2024 09:44-0400 Diastolic blood pressure 64 mm[Hg] Destin Hubbard MD Work Phone: [facility] 05-10-2024 09:44-0400 Heart rate 59 /min Destin Hubbard MD Work Phone: [facility] 05-10-2024 09:44-0400 Respiratory rate 20 /min Destin Hubbard MD Work Phone: [facility] 05-10-2024 09:44-0400 SaO2% (BldA) [Mass fraction] 99 % Destin Hubbard MD Work Phone: [facility] 05-10-2024 09:44-0400 Systolic blood pressure 118 mm[Hg] Destin Hubbard MD Work Phone: [facility] 03-07-2024 10:05-0400 Body height 154.9 cm Pmh 1 [facility] 03-07-2024 10:05-0400 Body mass index (BMI) [Ratio] 39.3 kg/m2 Pmh 1 [facility] 03-07-2024 10:05-0400 Body weight 94.35 kg Pmh 1 [facility] 02-16-2024 11:02-0400 Body height 154.9 cm Courtney Canas MANAGER [employer] Work Phone: [facility] 02-16-2024 11:02-0400 Diastolic blood pressure 74 mm[Hg] Courtney Canas MANAGER [employer] Work Phone: [facility] 02-16-2024 11:02-0400 Systolic blood pressure 121 mm[Hg] Courtney Canas MANAGER [employer] Work Phone: [facility] 01-19-2024 12:15-0400 Body height 154.94 cm [facility] 01-19-2024 12:15-0400 Body mass index (BMI) [Ratio] 41.1 kg/m2 [facility] 01-19-2024 12:15-0400 Body temperature 97.9 [degF] [facility] 01-19-2024 12:15-0400 Body weight 98.88 kg [facility] 01-19-2024 12:15-0400 Diastolic blood pressure 77 mm[Hg] [facility] 01-19-2024 12:15-0400 Heart rate 88 /min [facility] 01-19-2024 12:15-0400 Respiratory rate 18 /min [facility] 01-19-2024 12:15-0400 SaO2% (BldA) [Mass fraction] 97 % [facility] 01-19-2024 12:15-0400 Systolic blood pressure 109 mm[Hg] [facility] Encounters Encounter Date Encounter Type Care Provider Facility Start: 01-18-2025 End: 01-18-2025 Clinisync Result Encounter Generic External Data Provider [facility] External [facility] Unsolicited Start: 01-18-2025 End: 01-18-2025 Clinisync Result Encounter Generic External Data Provider [facility] External Department Unsolicited Start: 01-15-2025 End: 01-16-2025 [facility] Start: 01-15-2025 End: 01-16-2025 Evaluation and management of inpatient Severiano Shah MD Work Phone: [facility] Comment on above: Migraine aura occurr ing with and without headache (Primary Dx); Weakness; History of stroke; Migraine without aura and without status migrainosus, not intractable Start: 01-11-2025 End: 01-11-2025 Clinisync Result Encounter Generic External Data Provider [facility] External Department Unsolicited Start: 01-11-2025 End: 01-11-2025 Clinisync Result Encounter Generic External Data Provider [facility] External Department Unsolicited Start: 01-09-2025 ambulatory VANESSA BLANCHARD [facility] Start: 01-08-2025 End: 01-10-2025 Telephone encounter [facility] Start: 12-30-2024 End: 12-30-2024 Telephone encounter Gaviota Alejandre [facility] Comment on above: Consult orders Start: 12-26-2024 End: 12-26-2024 ambulatory UNKNOWN PROVIDER Facility:[facility] Start: 12-26-2024 End: 01-05-2025 Evaluation and management of inpatient PATO A [facility] Start: 12-26-2024 End: 12-26-2024 Emergency department patient visit DESTIN HUBBARD [facility] Start: 12-26-2024 End: 12-26-2024 Telephone encounter Babs Karlo [facility]en Comment on above: TTP LOW PLATELET COU NT Start: 10-16-2024 End: 10-16-2024 Refill Destin Hubbard MD Work Phone: [facility] Comment on above: Class 2 severe obesi ty due to excess calories with serious comorbidity and body mass index (BMI) of 39.0 to 39.9 in adult ([facility]) Start: 09-28-2024 End: 09-28-2024 Office outpatient visit 25 minutes Destin Hubbard MD Work Phone: [facility] Comment on above: DDD (degenerative di sc disease), cervical (Primary Dx); Degeneration of intervertebral disc of lumbar region with discogenic back pain and lower extremity pain; Gastroesophageal reflux disease without esophagitis; Prediabetes; Class 2 severe obesity due to excess calories with serious comorbidity and body mass index (BMI) of 37.0 to 37.9 in adult ([facility]) Start: 09-28-2024 End: 09-28-2024 ambulatory DESTIN HUBBARD Not Available Start: 09-28-2024 End: 09-28-2024 Bamboo flowsheet Destin Hubbard MD Work Phone: [facility] Start: 09-28-2024 End: 09-28-2024 Bamboo flowsheet Destin Hubbard MD Work Phone: [facility] Start: 09-05-2024 End: 09-05-2024 Bamboo flowsheet Blayne Juan Carlos DO Work Phone: [facility] Start: 09-05-2024 End: 09-08-2024 Bamboo flowsheet Blayne Juan Carlos DO Work Phone: [facility] Start: 09-05-2024 End: 09-08-2024 Clinisync Result Encounter Generic External Data Provider [facility] External Department Unsolicited Start: 09-05-2024 End: 09-06-2024 External Result Encounter Preeti HILLMAN Work Phone: [facility] External Department Unsolicited Start: 09-05-2024 End: 09-05-2024 Patient encounter procedure Blyane Juan Carlos DO Work Phone: [facility] Work Phone: Start: 09-05-2024 End: 09-05-2024 Periodic preventive med est patient 40-64yrs Blayne Juan Carlos DO Work Phone: [facility] Comment on above: Well woman exam with routine gynecological exam; Breast cancer screening by mammogram; Exposure to STD; Vaginal discharge; Insulin resistance; Sexually transmitted disease exposure Start: 09-05-2024 End: 09-05-2024 ambulatory BLAYNE JUAN CARLOS Not Available Start: 08-28-2024 End: 08-28-2024 Bamboo flowsheet Destin Hubbard MD Work Phone: [facility] Start: 08-28-2024 End: 08-28-2024 Bamboo flowsheet Destin Hubbard MD Work Phone: [facility] Start: 08-28-2024 End: 08-28-2024 Office outpatient visit 25 minutes Destin Hubbard MD Work Phone: [facility] Comment on above: Degeneration of inte rvertebral disc of lumbar region with discogenic back pain and lower extremity pain (Primary Dx); DDD (degenerative disc disease), cervical; Gastroesophageal reflux disease without esophagitis; Class 2 severe obesity due to excess calories with serious comorbidity and body mass index (BMI) of 39.0 to 39.9 in adult ([facility]) Start: 08-28-2024 End: 08-28-2024 ambulatory DESTIN HUBBARD Not Available Start: 08-15-2024 End: 08-15-2024 Emergency department patient visit [facility] Start: 07-26-2024 End: 07-26-2024 Orders Only Destin Hubbard MD Work Phone: [facility] Comment on above: Dermatitis (Primary Dx); Tinea corporis Start: 06-02-2024 End: 06-02-2024 Bamboo flowsheet Destin Hubbard MD Work Phone: [facility] Start: 06-02-2024 End: 06-02-2024 Bamboo flowsheet Destin Hubbard MD Work Phone: [facility] Start: 06-02-2024 End: 06-02-2024 ambulatory DESTIN HUBBARD Not Available Start: 06-02-2024 End: 06-02-2024 Office outpatient visit 25 minutes Destin Hubbard MD Work Phone: [facility] Comment on above: DDD (degenerative di sc disease), cervical (Primary Dx); Degeneration of intervertebral disc of lumbar region with discogenic back pain; Gastroesophageal reflux disease without esophagitis; History of TTP (thrombotic thrombocytopenic purpura) Start: 05-30-2024 End: 05-31-2024 Refill Destin Hubbard MD Work Phone: [facility] Comment on above: DDD (degenerative di sc disease), cervical Start: 05-12-2024 End: 05-12-2024 ambulatory [facility] Start: 05-10-2024 End: 05-10-2024 Bamboo flowsheet Destin Hubbard MD Work Phone: [facility] Start: 05-10-2024 End: 05-10-2024 Bamboo flowsheet Destin Hubbard MD Work Phone: [facility] Start: 05-10-2024 End: 05-10-2024 Office outpatient visit 25 minutes Destin Hubbard MD Work Phone: [facility] Comment on above: Prediabetes (Primary Dx); Chronic neck pain; Chronic right shoulder pain; Morbid obesity due to excess calories (CMS/HCC); Abscess of right axilla; Tinea corporis Start: 05-10-2024 End: 05-10-2024 ambulatory DESTIN HUBBARD Not Available Start: 04-06-2024 End: 04-06-2024 ambulatory DESTIN HUBBARD Not Available Start: 03-14-2024 End: 03-14-2024 Evaluation and management of inpatient MELISSA GUPTA [facility] Start: 03-13-2024 End: 03-14-2024 Evaluation and management of inpatient GILBERTO PEOPLES [facility] Start: 03-09-2024 End: 03-09-2024 ambulatory DESTIN HUBBARD [facility] Start: 03-07-2024 End: 03-07-2024 ambulatory [facility] Pat Phone Call Provider 1 [facility] Start: 02-16-2024 End: 02-16-2024 Patient encounter procedure Courtney Canas APRN-[employer]IT [employer] Work Phone: [facility] Comment on above: Encounter for screen ing colonoscopy (Primary Dx) Start: 02-16-2024 End: 02-16-2024 ambulatory [facility] Ayesha CANAS [facility] Start: 02-15-2024 End: 02-15-2024 Telephone encounter Destin Hubbard MD Work Phone: [facility] Comment on above: Sleep Lab (CPAP) Start: 02-10-2024 End: 02-10-2024 ambulatory DESTIN HUBBARD Not Available Start: 01-20-2024 Patient encounter procedure Gopal Hubbard MD Work Phone: [facility] Start: 01-19-2024 End: 01-19-2024 ambulatory [facility] Work Phone: Start: 01-19-2024 End: 01-19-2024 Patient encounter procedure [facility] Work Phone: Procedures Date Procedure Procedure Detail Performing Clinician Start: 01-18-2025 ALL CBC WITH AUTO DIFF Generic External Data Provider Start: 01-16-2025 BEDSIDE GLUCOSE Moris Rice MD Work Phone: Start: 01-16-2025 Urnls dip stick/tabl et rgnt auto w/o microscopy Deanne Valencia MANAGER [employer] Work Phone: Start: 01-16-2025 Mri brain brain stem w/o contrast material Moris Rice MD Work Phone: Start: 01-16-2025 Comprehensive metabo lic panel Moris Rice MD Work Phone: Start: 01-16-2025 EXTRA TUBES Moris Rice MD Work Phone: Start: 01-16-2025 EXTRA TUBES BLUE TOP Jose Rice MD Work Phone: Start: 01-16-2025 Lipid panel Moris Rice MD Work Phone: Start: 01-15-2025 BEDSIDE GLUCOSE Moris Rice MD Work Phone: Start: 01-15-2025 Ct angiography neck w/contrast/noncontrast Severiano Shah MD Work Phone: Start: 01-15-2025 Ecg routine ecg w/le ast 12 lds trcg only w/o i&r Severiano Shah MD Work Phone: Start: 01-15-2025 End: 01-15-2025 Ct head/brain w/o contrast material Severiano Shah MD Work Phone: Start: 01-15-2025 Basic metabolic pane l calcium total Severiano Shah MD Work Phone: Start: 01-15-2025 BEDSIDE GLUCOSE Severiano Shah MD Work Phone: Start: 01-15-2025 ED PHYSICIAN NIHSS A ND THROMBOLYTIC DECISION Severiano Shah MD Work Phone: Start: 01-11-2025 ALL CBC WITH AUTO DIFF Generic External Data Provider Start: 12-30-2024 Antibody screen IMRNA VILLATORO Comment on above: Performed By: #### T SC #### [facility] ([facility]) [address] [place] [address] VIR Start: 12-27-2024 Adult depression screening assessment Gaviota Alejandre Start: 12-26-2024 Antibody screen KAITYRYAN BLAKE VILLATORO Comment on above: Performed By: #### T SC #### [facility] ([facility]) [address] [place] [address] VIR Start: 09-05-2024 RECURRENT VAGINITIS (HTRX) Preeti HILLMAN Work Phone: Start: 09-05-2024 IGP,APTIMA HPV,AGE GDLN Blayne Juan Carlos DO Work Phone: Start: 03-13-2024 Colonoscopy Destin robins MD Work Phone: Start: 03-09-2024 Mammography Destin robins MD Work Phone: H/O: section Hx of sect ion H/O: hysterectomy Hx of hysterectomy H/O: tubal ligation Hx of tubal ligation History of appendectomy History of append ectomy History of cholecystectomy Hx of cholecystectomy Plan of Treatment Date Care Activity Detail Author Start: 03-13-2034 Screening for malignant neoplasm of colon [facility] Start: 01-05-2026 Adult BMI Screening Adult BMI Screen ing [facility] Start: 12-30-2025 Adult BMI Screening Adult BMI Screen ing [facility] Start: 12-27-2025 Depression Screening Depression Scre ening [facility] Start: 12-27-2025 Tobacco Screening Tobacco Screening [facility] Start: 12-26-2025 Adult BMI Screening Adult BMI Screen ing [facility] Start: 12-26-2025 Tobacco Screening Tobacco Screening [facility] Start: 09-11-2025 End: 09-11-2025 Patient encounter procedure 09/11/2025 3:00 PM EST Office Visit [facility] [address] [facility] [place] [address] Blayne Rangel DO [address] [place] [address] [facility] Start: 04-30-2025 Influenza vaccination P [facility] Start: 03-09-2025 Screening for malignant neoplasm of breast Mammogram [facility] Start: 03-07-2025 Adult BMI Screening Adult BMI Screen ing [facility] Start: 03-07-2025 Tobacco Screening Tobacco Screening [facility] Start: 02-15-2025 Tobacco Screening Tobacco Screening [facility] Start: 02-12-2025 End: 02-12-2025 Patient encounter procedure 02/12/2025 2:30 PM EDT Office Visit [facility] [place] [address] Marissa Daigle, DO [address] [facility] [address] [place] [address] [facility] [place] Start: 02-07-2025 End: 02-07-2025 Patient encounter procedure 02/07/2025 1:30 PM EDT Office Visit [facility], A Department of [facility] [address] [place] [phone] Romero Daly MD [address] [facility] [place] [phone] [facility] Department of [facility] Start: 02-02-2025 End: 02-02-2025 Patient encounter procedure 02/02/2025 9:30 AM EDT Office Visit [facility] [address] [place] [address] Destin Hubbard MD [address] [place] [phone] [facility] Start: 01-18-2025 End: 01-18-2025 Patient encounter procedure 01/18/2025 8:30 AM EDT Office Visit [facility] [address] [place] [phone] Destin Hubbard MD [address] [place] [phone] [facility] Start: 01-11-2025 End: 01-11-2025 Patient encounter procedure 01/11/2025 10:15 AM EDT Appointment [facility] [address] [place] [phone] Arrived [facility] Comment on above: Arrived Start: 01-04-2025 End: 01-04-2025 Patient encounter procedure 01/04/2025 3:00 PM EDT Office Visit [facility] [address] [place] [address] Destin Hubbard MD [address] [place] [phone] [facility] Start: 12-08-2024 Tobacco Screening Tobacco Screening [facility] Start: 09-28-2024 End: 09-28-2024 Patient encounter procedure [facility] Comment on above: Arrived Start: 09-05-2024 End: 11-03-2025 MG Breast - bilateral Screening Bilateral screening mammogram Imaging Routine Breast cancer screening by mammogram Expected: 09/05/2024 (Approximate), Expires: 11/03/2025 [facility] Work Phone: Comment on above: Expected: 09/05/2024 (Approximate), Expires: 11/03/2025 Start: 09-05-2024 End: 09-05-2024 Patient encounter procedure [facility] Comment on above: Arrived Start: 08-28-2024 End: 08-28-2024 Patient encounter procedure [facility] Comment on above: Arrived Start: 08-15-2024 End: 08-15-2024 Patient encounter procedure 08/15/2024 1:00 PM EST Office Visit [facility] [address] [place] [phone] Blayne Rangel DO [address] [place] [address] [facility] Start: 08-01-2024 Adult BMI Screening Adult BMI Screen [facility] Start: 07-11-2024 End: 07-11-2024 Patient encounter procedure 07/11/2024 3:00 PM EST Office Visit [facility] [address] [place] [address] Destin Hubbard MD [address] [place] [phone] [facility] Start: 07-10-2024 End: 07-10-2024 Patient encounter procedure 07/10/2024 2:15 PM EST Office Visit [facility] [address] [place] [address] Destin Hubbard MD [address] [place] [phone] [facility] Start: 06-02-2024 End: 06-02-2025 CBC W Auto Differential panel - Blood CBC and differential Lab Routine History of TTP (thrombotic thrombocytopenic purpura) Expected: 06/02/2024 (Approximate), Expires: 06/02/2025 [facility] Work Phone: Comment on above: Expected: 06/02/2024 (Approximate), Expires: 06/02/2025 Start: 06-02-2024 End: 06-02-2024 Patient encounter procedure 06/02/2024 10:30 AM EDT Office Visit [facility] [address] [place] [phone] Destin Hubbard MD [address] [place] [phone] [facility] Start: 05-10-2024 End: 05-10-2025 XR Cervical spine 2 or 3 Views XR cervical spine 2 or 3 views Imaging Routine Chronic neck pain Expected: 05/10/2024, Expires: 05/10/2025 [facility] Work Phone: Comment on above: Expected: 05/10/2024 , Expires: 05/10/2025 Start: 05-10-2024 End: 05-10-2024 Patient encounter procedure 05/10/2024 9:15 AM EDT [facility] [address] [place] [phone] Destin Hubbard MD [address] [place] [address] Arrived [facility] Comment on above: Arrived Start: 04-30-2024 COVID-19 Vaccine ( season) COVID-19 Vaccine ( season) [facility] Start: 04-30-2024 Influenza vaccination [facility] Start: 03-13-2024 End: 03-13-2024 Admission to same day surgery center 03/13/2024 8:30 AM EDT - 03/13/2024 9:00 AM EDT Surgery [facility] - Surgery [address] [place] [phone] Gilberto Peoples DO [address] [place], [place] [phone] COLONOSCOPY DIAGNOSTIC / SCREENING [33069 (CPT )] [facility] Comment on above: COLONOSCOPY DIAGNOST IC / SCREENING [62726 (CPT )] Start: 03-13-2024 End: 03-13-2024 Anesthesia consultation 03/13/2024 8:30 AM EDT Anesthesia Event [facility] [address] [facility] [place] [phone] Melissa Gupta, DO [address] [facility] [place] [address] [facility] Start: 03-13-2024 End: 03-13-2024 Colonoscopy flx dx w/collj spec when pfrmd COLONOSCOPY DIAGNOSTIC / SCREENING Screen for colon cancer 03/13/2024 8:30 AM EDT [facility] Start: 03-13-2024 Subsequent hospital visit by physician 03/13/2024 8:30 AM EDT Hospital Encounter [facility] [address] [place] [phone] Gilberto Peoples DO [address] [place] [address] [facility] Start: 03-09-2024 End: 03-09-2024 Patient encounter procedure 03/09/2024 11:45 AM EDT Appointment [facility] - Mammogram DEXA [address] [place] [phone] [facility] Mammogram DEXA Start: 03-07-2024 End: 03-07-2024 ambulatory 03/07/2024 3:50 PM EDT Support Visit [facility] - Pre Admit [address] [place] [phone] [facility] Pre Admit Start: 02-16-2024 End: 02-16-2024 Patient encounter procedure 02/16/2024 11:00 AM EDT Office Visit [facility] [address] [place] [phone] Jey Canasssbakari Hodge, MANAGER [employer] [address] [facility] [place] [address] [facility] Start: 04-30-2023 COVID-19 Vaccine ( season) COVID-19 Vaccine ( season) [facility] Start: 02-13-2021 COVID-19 Vaccine (3 - Moderna risk series) COVID-19 Vaccine (3 - Moderna risk series) [facility] Start: 2007 Screening for malignant neoplasm of cervix [facility] Start: 1998 Screening for malignant neoplasm of cervix Pap Smear [facility] Start: 1996 DTaP,Tdap and Td Vaccines (1 - Tdap) DTaP,Tdap and Td Vaccines (1 - Tdap) [facility] Start: 1995 Adult BMI Follow Up Plan Adult BMI Follow Up Plan [facility] Start: 1989 Depression Screening Depression Scre ening [facility] Start: 1977 Screening for malignant neoplasm of colon [facility] Start: 1977 Tobacco Counseling Tobacco Counselin g [facility] CHLAMYDIA TRACHOMATI S (GENITO/STI) CHLAMYDIA TRACHOMATIS (GENITO/STI) Lab Routine Exposure to STD Ordered: 09/05/2024 [facility] Comment on above: Ordered: 09/05/2024 End: 02-14-2025 Colonoscopy Colonoscopy GI Routine Encounter for screening colonoscopy 1 Occurrences starting 02/16/2024 until 02/14/2025 [facility] Work Phone: Comment on above: 1 Occurrences starti ng 02/16/2024 until 02/14/2025 Hepatitis B virus surface Ag [Presence] in Serum or Plasma by Immunoassay Hepatitis B surface antigen Lab Routine Sexually transmitted disease exposure Ordered: 09/05/2024 [facility] Comment on above: Ordered: 09/05/2024 HIV-1/HIV-2 antigen/antibody combination immunoassay HIV-1 and HIV-2 antibodies Lab Routine Sexually transmitted disease exposure Ordered: 09/05/2024 [facility] Comment on above: Ordered: 09/05/2024 Neisseria gonorrhoea e DNA [Presence] in Unspecified specimen by JAMIE with probe detection Neisseria gonorrhea DNA probe, direct Lab Routine Exposure to STD Ordered: 09/05/2024 [facility] Comment on above: Ordered: 09/05/2024 Reagin Ab [Presence] in Serum by RPR RPR Lab Routine Sexually transmitted disease exposure Ordered: 09/05/2024 [facility] Comment on above: Ordered: 09/05/2024 SURESWAB(R) ADVANCED VAGINITIS PLUS, TMA SURESWAB(R) ADVANCED VAGINITIS PLUS, TMA Pathology and Cytology Routine Vaginal discharge Ordered: 09/05/2024 [facility] Comment on above: Ordered: 09/05/2024 THIN PREP TIS PAP AN D HR HPV DNA THIN PREP TIS PAP AND HR HPV DNA Pathology and Cytology Routine Well woman exam with routine gynecological exam Ordered: 09/05/2024 [facility] Comment on above: Ordered: 09/05/2024 Immunizations Immunization Date Immunization Notes Care Provider Fa [facility] 01-16-2021 COVID-19, mRNA, LNP- S, PF, 100mcg/0.5mL Dose Destin Hubbard MD Work Phone: [facility] 12-18-2020 COVID-19, mRNA, LNP- S, PF, 100mcg/0.5mL Dose Destin Hubbard MD Work Phone: [facility] Payers Date Payer Category Payer Medicaid [facility] MEDICAID [id number] 2023 Unknown [id number]. [id number] 2023 Medicaid [employer] [facility] [id number] 2023-Present [address] [address] [place] [address] [id number] 2023 Medicaid (Managed Care) 1.2. [id number] 2023 Unknown [id number] 1977 Unknown [id number] 2.16.840.1.461938.3.579.2. 6 1977 Unknown [id number] 2.840.1.415984.3.579.2. 1258 1977 Unknown [id number] 2.840.1.530725.3.579.2. 9 1977 Unknown [id number] 2..840.1.781196.3.579.2. 9 1977 Unknown [id number] 2.16.840.1.495243.3.579.2. 9 1977 Unknown [id number] 2.16.840.1.915112.3.579.2. 9 1977 Unknown [id number] 2.16.840.1.152947.3.579.2. 1259 1977 Unknown [id number] 2.16.840.1.587789.3.579.2. 1258 1977 Unknown [id number] 2.16.840.1.037017.3.579.2. 732 1977 Unknown [id number] 2.16.840.1.216806.3.579.2. 1286 1977 Unknown [id number] 2.16.840.1.722692.3.579.2. 1286 1977 Unknown [id number] 2.16.840.1.250030.3.579.2. 1285 1977 Unknown [id number] 2.16.840.1.353516.3.579.2. 1285 1977 Unknown [id number] 2.16.840.1.178472.3.579.2. 1285 1977 Unknown [id number] 2.16.840.1.038621.3.579.2. 128 1977 Unknown [id number] 2.16.840.1.987806.3.579.2. 1285 1977 Unknown [id number] 2.16.840.1.317536.3.579.2. 1285 1977 Unknown [id number] 2.16.840.1.654897.3.579.2. 1285 1977 Unknown [id number] 2.16.840.1.119268.3.579.2. 1285 1977 Unknown [id number] 2.16.840.1.013802.3.579.2. 1285 1977 Unknown [id number] 2.16.840.1.495704.3.579.2. 1285 1977 Unknown [id number] 2.16.840.1.156053.3.579.2. 1285 1977 Unknown [id number] 2.16.840.1.608179.3.579.2. 1285 1977 Unknown [id number] 2.16.840.1.813722.3.579.2. 1285 1977 Unknown [id number] 2.16.840.1.804240.3.579.2. 1286 Social History Date Type Detail Facility Start: 01-19-2024 Tobacco smoking status CTIS Smoker (finding) [facility] Start: 1975 Sex Assigned At Female [facility] Start: 02-10-2024 End: 12-27-2024 Tobacco smoking status NHIS Smokes tobacco daily [facility] History of tobacco use Cigarette Smoker P [facility] Start: 02-10-2024 End: 12-27-2024 Tobacco use and exposure Smokeless tobacco non-user [facility] Start: 02-04-2024 End: 09-28-2024 History of Social function [facility] Start: 02-04-2024 End: 09-28-2024 Social connection and isolation panel [facility] Do you belong to any clubs or organizations such as denominational groups, unions, fraternal or athletic groups, or school groups? No [facility] Are you now , , , , never or living with a partner? Never [facility] How often to you hav e a drink containing alcohol? 2-4 times a month [facility] How many standard dr inks containing alcohol do you have on a typical day? 1 or 2 [facility] How often do you hav e 6 or more drinks on 1 occasion? Never [facility] How hard is it for y ou to pay for the very basics like food, housing, medical care, and heating Not very hard [facility] (I/We) worried whestephan er (my/our) food would run out before (I/we) got money to buy more. Never true [facility] In the past 12 month s, has lack of transportation kept you from medical appointments or from getting medications? No [facility] In the past 12 month s, was there a time when you were not able to pay the mortgage or rent on time? Yes [facility] Start: 01-18-2024 Gender identity Identifies as female gender (finding) [facility] Start: 01-18-2024 Sexual orientation Heterosexual (finding) [facility] Start: 12-09-2023 End: 01-15-2025 Alcoholic beverage intake Current drinker of alcohol (finding) [facility] Start: 06-11-2018 Alcohol Comment occasional [facility] Start: 1975 Sex assigned at Not on file [facility] Start: 04-04-2015 Sex Female (finding) [facility] Medical Equipment Procedure Code Equipment Code Equipment Origin al Text Equipment Identifier Dates 1 each by In Vit ro route Daily [id number] Start: 09-28-2024 1 each Daily [id number] Start: 09-28-2024 1 each Daily [id number] Start: 12-04-2024 Goals Date Patient Goal Desired Activity /State Personal health goal Comment on above: Formatting of this n ote might be different from the original. Evaluation of progress towards goal: Patient stated she plans to return home with home care therapy and daughter's support. Personal health goal Comment on above: Formatting of this n ote might be different from the original. Evaluation of progress towards goal: Patient states she prefers to return home. Tele Neuro cleared patient today and stated the patient is cleared for discharge. Functional Status Date Assessment Result Facility 01-16-2025 Humiliation, Afraid, Rape, and Kick questionnaire [HARK] [facility] Mental Status Date Assessment Result Facility [facility] Clinical Notes 02-15-2024 to 01-16-2025 Moris Rice MD - 01/16/2025 2:30 PM EDTPT/OT/TANK DRIVER - Fannie Nolasco CCC-EDWIGE - 01/16/2025 2:08 PM EDTPT/OT/TANK DRIVER - Moris Rice MD - 01/16/2025 1:26 PM EDTWilfrid Carey RN - 01/15/2025 3:45 PM EDT Note Date & Type Note Facility 01-16-2025 Hospital course Narrative Images from the original note were not included. [facility] Discharge Summary Patient: Tereza Ceja Date of : 1975 Room: [facility] Encounter date: 01/16/25 DATE OF ADMISSION: 01/15/2025 DATE OF DISCHARGE:01/16/2025 DISCHARGE DIAGNOSES Principal Problem: Stroke-like symptoms Active Problems: TTP (thrombotic thrombocytopenic purpura) ([facility]) Weakness History of thrombectomy History of stroke Leukocytosis Hypomagnesemia Acute deep vein thrombosis (DVT) of femoral vein of right lower extremity ([facility]ANT[facility] Tele-Neurology PCP: DESTIN HUBBARD MD HOSPITAL COURSE SUMMARY Tereza Ceja is a 49 y.o. female who presents with complaints of left-sided facial droop and slurred speech last known [...] ER NIH stroke score is a 6 secondary to left arm falls right leg falls left leg falls articulation and mild dysarthria. Stroke alert was contacted recommended admitting for MRI. Patient is not a TNK candidate secondary to being out of the time window. Results in the ER include white blood cell count 11.5 hemoglobin 10.4 hematocrit 32.1 platelets 218 absolute neutrophils 9.3 INR normal PTT 25 electrolytes normal excluding 190 glucose calcium 8.3 GFR 85 phosphorus is 2.9 troponin initially done x1 negative TSH 0.[address] brain No acute intracranial abnormality, CT angiogram was completed with also no large vessel pathologies. MRI was completed, T1 phase could not be complete his secondary to claustrophobia however there was no signs of ischemia or signs of CVA. Patient's neurological status returned to her baseline. Multiple family members are present in the room and did share concerns for mood and lack of motivation. Patient is insomnia, narcoleptic, unmotivated, bitter since her last CVA. Has lost some function since that time. She was evaluated by Physical therapy and TANK DRIVER without any significant concerns. Elected for outpatient [...] Abnormality Status --------- ------ Troponin I, High Sensiti...[[id number]] Normal Final result Troponin I, High Sensiti...[[id number]] Please view results for these tests on [...] Procedure Abnormality Status --------- ------ Light Blue Top[[id number]] Final result Please view results for these [...] ACAs: Normal bilaterally. AComm: Normal P-Comms and seasonal delivery driver: seasonal delivery driver are patent bilaterally. Posterior communicating arteries are not well visualized. Vertebral arteries: Normal to the confluence with the basilar artery. Basilar artery: Normal. IMPRESSION: No large vessel occlusion, critical stenosis, or sizable aneurysm. Finalized by Gilberto Morales on 01/15/2025 4:[address] angiogram carotid Result Date: 01/15/2025 Narrative: CT ANGIOGRAM OF THE NECK CLINICAL INFORMATION: stroke like symptoms. TECHNIQUE: CT angiogram performed following intravenous administration of nonionic intravenous contrast. Coronal and sagittal and 3-D volume rendered maximum intensity projection images generated and reviewed under concurrent physician supervision. Automated exposure control utilized. The [place] Symptomatic Carotid Endarterectomy Trial (NASCET) method for [...] 12/30/2024 2:36 PM INDICATION: Urgent plasmapheresis ATTENDING: Vanessa Rivera MD SEDATION: 50 mcg of fentanyl [...] is available for immediate use. Finalized by Vanessa Rivera MD on 12/30/2024 2:37 PM Echo [...] AM Neuro Invasiv Result Date: 12/27/2024 Narrative: Tereza Ceja is 49 y.o. who was transferred to [facility] with acute onset left hemispheric stroke symptoms. [...] was quoted. Consent was obtained. Procedure: Tereza Ceja was identified and brought to the neuro IR suite. Patient was placed supine on the angio table. Bilateral groins were shaved, prepped and the patient was draped in the usual sterile manner. Using modified Seldinger technique a 6 Lebanese sheath was advanced in the right common femoral artery. Through this sheath we now advanced a 5 Lebanese Seymour 2 catheter over an 035 wire [...] groin sheath was exchanged for a 6 Lebanese 90 cm NeuronMax sheath which was advanced into the distal cervical segment of the left internal carotid artery. Through this sheath we now advanced a triaxial assembly of Dory 6 Lebanese mid size catheter over a velocity microcatheter [...] common carotid artery. Under roadmap, Dory 6 Lebanese was advanced over synchro microwire into the distal cervical ICA. Follow-up angiographic run from the Madeline catheter showed recanalization of the left middle cerebral artery. With pump aspiration, the Madeline 6 Lebanese was retrieved and then we did angiographic mckinney from the guide sheath which showed severe vasospasm involving the mid cervical ICA and unfortunately we occlusion of the distal left MCA M1 segment. Now using same triaxial system composed of Dory 6 Lebanese mid size catheter over a velocity microcatheter [...] normal runoff to the distal extremity. Impression:Tereza Ceja underwent diagnostic cerebral angiography and aspiration [...] of 40 mL Omnipaque 350. Postprocessing with urturn and/or GeoPage software was used. Specifically, maps of cerebral blood flow, cerebral blood volume, mean transit time and Tmax were calculated by using the perfusion source data. COMPARISON: CT brain same date. Image quality: Sufficient Arterial input function GEMA selected: Proximal left MCA Venous outflow function GEMA: [place] of sinuses FINDINGS: CT Perfusion Characteristics: CBF<30% [...] on 12/26/2024 at 2:47 PM Finalized by Vanessa Rivera MD on 12/26/2024 2:[address] angiogram carotid Result Date: 12/26/2024 Narrative: CLINICAL INFORMATION: stroke alert TECHNIQUE: CT angiogram performed following intravenous administration of nonionic intravenous contrast. Coronal and sagittal and 3-D volume rendered maximum intensity projection images generated and reviewed under concurrent physician supervision. Automated exposure control utilized. The [place] Symptomatic Carotid Endarterectomy Trial (NASCET) method for [...] recommend dedicated evaluation with ultrasound. Finalized by Vanessa Rivera MD on 12/26/2024 2:[address] [...] as other medications prescribed for you. Read the directions carefully, and ask your doctor or other care provider to review them with you. Where to Get Your Medications These medications were sent to [address] [place] [address] [address] buPROPion XL 150 mg 24 hr tablet >30 minutes were spent on discharging this patient. MORIS RICE MD 01/16/2025 2:48 PM [facility] [place] [facility] 7AM-7PM (all facilities): Message rounding JERAMY in [employer] or page through [employer]. 7PM-7AM ([facility]): Page Night JERAMY, [phone]. 7PM-7AM ([facility] Re[facility]): Page on-call JERAMY, . documented in this encounter [facility] 01-16-2025 Miscellaneous Notes Speech Therapy Evaluation PHQ2 - Over the [...] for all PO intake (including medication), Patient to remain upright 15 minutes after meals Medications: One [...] Linguistic: Mild-moderate, Consistent with premorbid status The [employer] Mental Status Examination (SLUMS) is an assessment tool designed to be [...] a total score of 16/30, indicating neurocognitive deficit. Deficits noted in areas of memory. It was [...] symptoms Active Problems: TTP (thrombotic thrombocytopenic purpura) ([facility]) Weakness History of thrombectomy History of stroke Leukocytosis Hypomagnesemia Acute deep vein thrombosis (DVT) of femoral vein of right lower extremity ([facility]) Cosigned by Moris Rice MD at 01/16/2025 2:52 PM EDT Physical Therapy Evaluation Discharge Recommendations for Safe Patient Transition Home Recommendations: Home, 24 hour caregiver support for: (ADLs, IADLs, transportation) Post Discharge Therapy Recommendations: Home Physical Therapy, Home Occupational Therapy, Outpatient Physical Therapy, Outpatient Occupational Therapy (Patient preference, would help with depression to attend outpatient therapy.) Mine Analyst Support for-: Mobility Deficits, ADL Deficits 6 [...] 6 Clicks: Basic Mobility Raw Score: 17 CMS G Code Modifier: CK Therapy Plan Need for skilled Physical Therapy to address deficits in functional mobility due to a status decline resulting from recent CVA with new onset stroke like symptoms. PT Treatment/Interventions: Functional transfer training, LE strengthening/ROM, Endurance training, Balance, Stair training, Gait training, Bed mobility, Functional [...] post acute discharge, With continued OT status post acute discharge, 24 hour supervision recommended Visit RN Communication: Yes Medical Record Reviewed: Yes PT Type of Visit: Evaluation Precautions Activity: early mobility pass; OK to eval per RN, Lisa Equipment: RW, gait belt, BSC, telemetry Weight Bearing Status: FWB Telemetry/Tab Cutting Machine Operator: Yes Oxygen Used: room air Other: Complaints of ill feelings with mobility. BP prior to mobility is 105/62 mmHg and post mobility is 131/98 mmHg. 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 Requires assist to keep proximity to RW. Balance Sitting [...] symptoms Active Problems: TTP (thrombotic thrombocytopenic purpura) ([facility]) Weakness History of thrombectomy History of stroke Leukocytosis Hypomagnesemia Acute deep vein thrombosis (DVT) of femoral vein of right lower extremity ([facility]) Images from the original note were not included. Discharge Planning Assessment Tereza Ceja Admit Status: Observation Meet: Yes Readmission Risk: N/A. Date of Admission: 01/15/2025 GMLOS: Observation < 48 hours Target Discharge Date: 01/17/2025 Discharge Planning Assessment completed at bedside. Airline Managerial Supervisor identified self and role to the patient. Patient is agreeable to the assessment and discussion [...] sided residual weakness according to July Valverde RN. She is able to use walker and Nan [...] to heaven or a time frame. July Valverde RN notified. Mother states patient has a [...] anything for herself, such as dressing herself. Airline Managerial Supervisor asked if she is cooking her own meals. Patient states that she is not because she may forget and leave the stove on. Airline Managerial Supervisor encouraged patient to atleast use microwave as she appears to not be forgetful that she is forgetful as above. Patient states that things will never be the same. She admits to some feelings of depression. Airline Managerial Supervisor explains that grief is normal after a stroke. However, she appears to be able to do more than she is completing for herself. She was encouraged to begin participating directly in her own self care. Airline Managerial Supervisor informs patient that we will notify Dr. Hubbard's office regarding her feelings that things will never be the same. At this time discharge is pending PT/OT recommendations. Mother and patient deny further equipment needs at home. Residence Accessibility Steps into home Number of Steps 3 Home Care Services No [Original plan in [place] was home with home health. It is unclear why the plan changed to Home with Outpatient therapy. Patient is uncertain why this discharge plan changed.] Community Agencies Currently Utilized Established Durable Medical Equipment Provider Established Durable Medical Equipment Provider Other Other Medical Services Company Type of Residence Private residence Who is the existing DME Provider? [employer] ([employer]) ) Established DME Comments Walker, bedside commode, shower [...] have money to get more. Never True Hunger Screening Complete? Yes Pt. Eligible for Food / Voucher No If Eligible: Received Food Box Not Offered to Patient Warm Handoff Complete Caregiver/Family Member Caregiver/Family Member Mother was at bedside during assessment and she does provide participation in assessment. She and patient's daughter provide resident care aide support on a daily basis with patient. [...] family/friend/caregiver involved in their discharge planning? No, the patient does not wish to have family/friend/caregiver involved in their discharge planning Discharge Disposition Home with self care [Home and resume OP therapy or Home Health Care verses SNF pendign PT/OT evaluation.] Who is the existing DME Provider? [employer] ([employer]) ) Does the patient need discharge transportation arranged? No [Mother is able to drive patient to her appointments and home from hospital.] Patient choice offered Yes List Provided Yes [facility] List Prov[facility] Home Care Pharmacy: [facility] PCP: [...] provided to patient with list creation in [facility] and filtered by insurance payor. Referrals to the following C was tasked to the Transition Center as requested by patient: [facility] Health Care Plus Plan to [...] 07, 2025 @ [address]. Dr. Destin Hubbard (PCP-Airline Managerial Supervisor left message regarding concerns for patient post [...] 07, 2025 @ [address]. Dr. Destin Hubbard (PCP-Airline Managerial Supervisor left message regarding concerns for patient post stroke depression/grief and to return call for follow up appointment). Appointment confirmed for February 02, 2025 @ 929. - Lauren Wilson RN 01/16/25 1:06 PM Patient only had 3 home health care companies on her CarePort list as below. Noted are the responses for acceptance. [facility] - Unable to accept as they [...] 07, 2025 @ [address]. Dr[address] Destin Hubbard (PCP-Airline Managerial Supervisor left message regarding concerns for patient post stroke depression/grief and to return call for follow up appointment). Appointment confirmed for February 02, 2025 @ 929. - Lauren Wilson RN 01/16/25 1:56 PM Patient was provided 2024 Stroke Support Group Calendar for possible post stroke depression. - Lauren Wilson RN 01/16/25 3:28 PM DISCHARGE PLANNING NOTE Referral sent to. [facility]- P# ; F# [facility] [employer] (P# ; F# ) [place] [address] Speech Therapy TANK DRIVER Type of Visit: Medical deferral Reasons for Medical Deferral: With other medical staff, Other (see comments) (With Televisit) First attempt 11:15, pt with Telehealth. Second attempt 11:42, pt still with telehealth at this time. Will attempt evaluation again as able. Physical Therapy PT Type of Visit: (P) Medical deferral (Undergoing neuro televist. Not able to attempt at this time.) PT orders received. Chart reviewed. First attempt at 0940 and patient not appropriate do to lethargy and decreased responsiveness from ativan given for MRI. Second attempt patient undergoing teleneuro visit. Will re-attempt as appropriate. Occupational Therapy OT Type of Visit: Medical deferral (neuro televisit underway.) attempted to see patient times 2 trials, 1 time at 9:30- just returned from MRI was recently given Ativan and sleeping/difficult to arouse. 2nd attempt 11:04- tele visit underway. OT to continue to follow and complete as time permits. Problem: Knowledge Deficit Goal: Patient/patient call center representative demonstrates understanding of disease process, treatment plan, medications, and discharge instructions Description: INTERVENTIONS 1. Complete [...] goal: Continue to assess for when appropriate. Problem: Pain Goal: Patient goal is pain score less than 4, able to rest, and participant in treatment plan as appropriate Description: INTERVENTIONS: 1. Encourage patient or legal call center representative to report early pain and ask [...] per policy 9. Teach patient or legal call center representative interventions for comforting Outcome: Progressing Note: [...] at the bedside 7. Instruct patient/ patient call center representative about use of safety devices 8. Include patient/ patient call center representative in decisions related to safety Outcome: [...] hygiene technique. 7. Identify and instruct patient/patient call center representative in use of appropriate isolation precautions for identified infection/symptoms. 8. Provide and discuss with patient/patient call center representative on educational MDRO sheet. 9. Encourage and monitor nutritional status daily and consult tube cutter if indicated. 10. Implement neutropenic guidelines as needed. Outcome: Progressing Note: Evaluation of progress towards goal: Patient VS WNL, remains afebrile for shift. Continue to monitor. Problem: Knowledge Deficit Goal: Patient/patient call center representative demonstrates understanding of disease process, treatment plan, medications, and discharge instructions Description: INTERVENTIONS 1. Complete [...] of consciousness, motor function, sensory function, and level of assistance needed for ADLs 4. Monitor and [...] and report duration and description of seizure to LIP 10. If seizure occurs, turn patient to [...] supplement as ordered 13. Collaborate with clinical tube cutter 14. Include patient/ patient's call center representative in decisions related to nutrition Outcome: Progressing Note: Evaluation of progress towards goal: Patient understands the importance of proper nutrition to aid in healing. Problem: Moderate - High Risk Fall Score Description: Painting Fall Score of =/> 25 or indicated by [facility] Assessment Goal: Patient should be free from fall Description: Interventions: 1. Quinter to environment 2. Hourly rounds addressing the [...] non-skid footwear 11. Teach patient and patient call center representative to maintain environment for safety and [...] (cane, walker) within reach 19. Request patient call center representative bring adaptive equipment/mobility aids from home or obtain and provide as needed 20. Consult pharmacy regarding effects of med's affecting mobility, cognition, and alternatives 21. Obtain physician order for PT if risk factors associated with mobility are present 22. Obtain physician order for OT as appropriate 23. Utilize diversional activities 24. Educate patient and patient call center representative how to maintain a safe environment during visitation times (notify nurse prior to leaving bedside) 25. Consider appropriateness of medical or non-medical claims representative 26. Set up voiding schedule as appropriate (every 2 hours) Outcome: Progressing Note: Evaluation of progress towards goal: Pt remains free from falls or accidental injury during shift. Fall prevention measures in place. Hourly rounding per RN and maintained. documented in this encounter [facility] 01-16-2025 Progress note Formatting of t his note is different from the original. Speech Therapy Evaluation PHQ2 - Over the [...] for all PO intake (including medication), Patient to remain upright 15 minutes after meals Medications: One [...] Linguistic: Mild-moderate, Consistent with premorbid status [facility] Mental Status Examination (SLUMS) is an assessment tool designed to be [...] a total score of 16/30, indicating neurocognitive deficit. Deficits noted in areas of memory. It was [...] symptoms Active Problems: TTP (thrombotic thrombocytopenic purpura) ([facility]) Weakness History of thrombectomy History of stroke Leukocytosis Hypomagnesemia Acute deep vein thrombosis (DVT) of femoral vein of right lower extremity ([facility]) Cosigned by Moris Rice MD at 01/16/2025 2:52 PM EDT [facility] 01-16-2025 Progress note Formatting of t his note is different from the original. Physical Therapy Evaluation Discharge Recommendations for Safe Patient Transition Home Recommendations: Home, 24 hour caregiver support for: (ADLs, IADLs, transportation) Post Discharge Therapy Recommendations: Home Physical Therapy, Home Occupational Therapy, Outpatient Physical Therapy, Outpatient Occupational Therapy (Patient preference, would help with depression to attend outpatient therapy.) Mine Analyst Support for-: Mobility Deficits, ADL Deficits 6 [...] 6 Clicks: Basic Mobility Raw Score: 17 [facility] G Code Modifier: CK Therapy Plan Need for skilled Physical Therapy to address deficits in functional mobility due to a status decline resulting from recent CVA with new onset stroke like symptoms. PT Treatment/Interventions: Functional transfer training, LE strengthening/ROM, Endurance training, Balance, Stair training, Gait training, Bed mobility, Functional [...] post acute discharge, With continued OT status post acute discharge, 24 hour supervision recommended Visit RN Communication: Yes Medical Record Reviewed: Yes PT Type of Visit: Evaluation Precautions Activity: early mobility pass; OK to eval per RN, Nan Equipment: RW, gait belt, BSC, telemetry Weight Bearing Status: FWB Telemetry/Tab Cutting Machine Operator: Yes Oxygen Used: room air Other: Complaints of ill feelings with mobility. BP prior to mobility is 105/62 mmHg and post mobility is 131/98 mmHg. Past Medical History: Diagnosis Date H/O degenerative disc disease PONV (postoperative nausea and vomiting) Sciatica Sciatica, right side Stroke (cerebrum) ([facility]) 12/26/2024 T.T.P. syndrome ([facility]) dormant since 2013 Past Surgical History: Procedure Laterality Date APPENDECTOMY SECTION x2 CHOLECYSTECTOMY COLONOSCOPY DIAGNOSTIC / SCREENING N/A 03/13/2024 Performed by Gilberto Peoples DO at [facility] HYSTERECTOMY one ovary removed Neuro Invasive N/A 12/26/2024 Performed by Romero Daly MD at [facility]S OOPHORECTOMY 1 removed Stroke Thrombectomy N/A 12/26/2024 Performed by Romero Daly MD at [facility] CARDI[facility] CATH LABS TONSILLECTOMY Subjective Physical [...] of which increases her risk for falls. Requires assist to keep proximity to RW. Balance Sitting [...] symptoms Active Problems: TTP (thrombotic thrombocytopenic purpura) ([facility]) Weakness History of thrombectomy History of stroke Leukocytosis Hypomagnesemia Acute deep vein thrombosis (DVT) of femoral vein of right lower extremity ([facility]) [facility] Progress note Formatting of t his note is different from the original. Images from the original note were not included. Discharge Planning Assessment Tereza Ceja Admit Status: Observation Meet: Yes Readmission Risk: N/A. Date of Admission: 01/15/2025 GMLOS: Observation < 48 hours Target Discharge Date: 01/17/2025 Discharge Planning Assessment completed at bedside. Airline Managerial Supervisor identified self and role to the patient. Patient is agreeable to the assessment and discussion [...] sided residual weakness according to July Valverde RN. She is able to use walker and Nan [...] to heaven or a time frame. July Valverde RN notified. Mother states patient has a [...] anything for herself, such as dressing herself. Airline Managerial Supervisor asked if she is cooking her own meals. Patient states that she is not because she may forget and leave the stove on. Airline Managerial Supervisor encouraged patient to atleast use microwave as she appears to not be forgetful that she is forgetful as above. Patient states that things will never be the same. She admits to some feelings of depression. Airline Managerial Supervisor explains that grief is normal after a stroke. However, she appears to be able to do more than she is completing for herself. She was encouraged to begin participating directly in her own self care. Airline Managerial Supervisor informs patient that we will notify Dr. Hubbard's office regarding her feelings that things will never be the same. At this time discharge is pending PT/OT recommendations. Mother and patient deny further equipment needs at home. Residence Accessibility Steps into home Number of Steps 3 Home Care Services No [Original plan in [place] was home with home health. It is unclear why the plan changed to Home with Outpatient therapy. Patient is uncertain why this discharge plan changed.] Community Agencies Currently Utilized Established Durable Medical Equipment Provider Established Durable Medical Equipment Provider Other Other Medical Services Company Type of Residence Private residence Who is the existing DME Provider? [employer] ([phone]) Established DME Comments Walker, bedside commode, shower [...] have money to get more. Never True Hunger Screening Complete? Yes Pt. Eligible for Food / Voucher No If Eligible: Received Food Box Not Offered to Patient Warm Handoff Complete Caregiver/Family Member Caregiver/Family Member Mother was at bedside during assessment and she does provide participation in assessment. She and patient's daughter provide resident care aide support on a daily basis with patient. [...] family/friend/caregiver involved in their discharge planning? No, the patient does not wish to have family/friend/caregiver involved in their discharge planning Discharge Disposition Home with self care [Home and resume OP therapy or Home Health Care verses SNF pendign PT/OT evaluation.] Who is the existing DME Provider? [employer] ([phone]) Does the patient need discharge transportation arranged? No [Mother is able to drive patient to her appointments and home from hospital.] Patient choice offered [...] provided to patient with list creation in [facility] and filtered by insurance payor. Referrals to the following C was tasked to the Transition Center as requested by patient: [facility] Unique Health Care Plus Plan to [...] Clinic) scheduled for February 07, 2025 @ 09[address]. Dr. Destin Hubbard (PCP-Airline Managerial Supervisor left message regarding concerns for patient post [...] 07, 2025 @ [address]. Dr. Destin Hubbard (PCP-Airline Managerial Supervisor left message regarding concerns for patient post stroke depression/grief and to return call for follow up appointment). Appointment confirmed for February 02, 2025 @ 09. - Lauren Wilson RN 01/16/25 1:06 PM Patient only had 3 home health care companies on her CarePort list as below. Noted are the responses for acceptance. [facility] - Unable to accept as they [...] 07, 2025 @ [address] Destin Hubbard (PCP-Airline Managerial Supervisor left message regarding concerns for patient post stroke depression/grief and to return call for follow up appointment). Appointment confirmed for February 02, 2025 @ 0930. - Lauren Wilson RN 01/16/25 1:56 PM Patient was provided 2024 Stroke Support Group Calendar for possible post stroke depression. - Lauren Wilson RN 01/16/25 3:28 PM [facility] 01-16-2025 Progress note Formatting of t his note might be different from the original. DISCHARGE PLANNING NOTE Referral sent to. [facility]- P# ; F# [facility] [employer] (P# ; F# ) [place] [address] [facility] 01-16-2025 Progress note Formatting of t his note is different from the original. Speech Therapy TANK DRIVER Type of Visit: Medical deferral Reasons for Medical Deferral: With other medical staff, Other (see comments) (With Televisit) First attempt 11:15, pt with Telehealth. Second attempt 11:42, pt still with telehealth at this time. Will attempt evaluation again as able. [facility] 01-16-2025 Progress note Formatting of t his note is different from the original. Physical Therapy PT Type of Visit: (P) Medical deferral (Undergoing neuro televist. Not able to attempt at this time.) PT orders received. Chart reviewed. First attempt at 0940 and patient not appropriate do to lethargy and decreased responsiveness from ativan given for MRI. Second attempt patient undergoing teleneuro visit. Will re-attempt as appropriate. [facility] 01-16-2025 Progress note Formatting of t his note is different from the original. Occupational Therapy OT Type of Visit: Medical deferral (neuro televisit underway.) attempted to see patient times 2 trials, 1 time at 9:30- just returned from MRI was recently given Ativan and sleeping/difficult to arouse. 2nd attempt 11:04- tele visit underway. OT to continue to follow and complete as time permits. [facility] [employer] Work Phone: 01-16-2025 History and physical note Images from the original note were not included. [facility] [address] [facility] [id number] Hospital Medicine History & Physical Patient: Tereza Ceja Date of : 1975 Room: [facility] PCP: DESTIN HUBBARD MD Admission date: 01/15/2025 3:03 PM Encounter date: 01/16/25 Hospital Day: 2 SUBJECTIVE Tereza Ceja is a 49 y.o. female who presents with complaints of left-sided facial droop and slurred speech last known [...] ER NIH stroke score is a 6 secondary to left arm falls right leg falls left leg falls articulation and mild dysarthria. Stroke alert was contacted recommended admitting for MRI. Patient is not a TNK candidate secondary to being out of the time window. Results in the ER include white blood cell count 11.5 hemoglobin 10.4 hematocrit 32.1 platelets 218 absolute neutrophils 9.3 INR normal PTT 25 electrolytes normal excluding 190 glucose calcium 8.3 GFR 85 phosphorus is 2.9 troponin initially done x1 negative TSH 0.[address] brain No acute intracranial abnormality, by CT. MRI is more sensitive for evaluation of ischemia or subtle parenchymal abnormalities. Partially empty sella. CTA head No large vessel occlusion, critical stenosis, or sizable aneurysm. CTA neck Stable normal CTA neck. There is no stenosis in the neck. EKG sinus rhythm PVCs borderline short MN interval consider anterior infarct borderline T abnormalities [...] total) before bedtime. 01/01/25 Yes Itiya Robbie, MANAGER [employer] apixaban (ELIQUIS) 5 mg tablet Take 1 tablet (5 mg total) by mouth in the morning and 1 tablet (5 mg total) before bedtime. 01/04/25 Yes Itiya Robbie, MANAGER [employer] aspirin 81 mg Take 1 tablet (81 mg total) by mouth in the morning. 01/05/25 Yes Vanessa Blanchard MD atorvastatin (LIPITOR) 40 mg tablet Take 1 tablet (40 mg total) by mouth nightly. 01/05/25 Yes Vanessa Blanchard MD cyanocobalamin (vitamin B-12) 1000 MCG [...] not lifelong and should be tapered off. 5/9/25 Yes MD elizabeth Muñoznancy (SENOKOT) 8.6 mg tablet Take 1 tablet (8.6 mg total) by mouth in the morning. Yes Not In System Ref Prov Code Status: Full Code Past Medical History: Patient has a past medical history of H/O degenerative disc disease, PONV (postoperative nausea and vomiting), Sciatica, Sciatica, right side, Stroke (cerebrum) ([facility]) (12/26/2024), and T.T.P. syndrome ([facility] Past Surgical History: Patient has a past [...] OBJECTIVE BP 112/71 Pulse 80 Temp 36.9 C (98.4 F) (Oral) Resp 17 Ht 154.9 cm (5' 1 ) Wt 104 kg (229 lb 4.8 oz) SpO2 99% BMI 43.33 kg/m Temp: [36.6 C (97.8 F)-36.9 C (98.4 F)] 36.9 C (98.4 F) Pulse: [64-88] 80 Resp: [14-20] 17 BP: [...] Abnormality Status --------- ------ Troponin I, High Sensiti...[[id number]] Normal Final result Troponin I, High Sensiti...[[id number]] Please view results for these tests on [...] Procedure Abnormality Status --------- ------ Light Blue Top[[id number]] Final result Please view results for these [...] ACAs: Normal bilaterally. AComm: Normal P-Comms and seasonal delivery driver: seasonal delivery driver are patent bilaterally. Posterior communicating arteries are not well visualized. Vertebral arteries: Normal to the confluence with the basilar artery. Basilar artery: Normal. IMPRESSION: No large vessel occlusion, critical stenosis, or sizable aneurysm. Finalized by Gilberto Morales on 01/15/2025 4:[address] angiogram carotid Result Date: 01/15/2025 Narrative: CT ANGIOGRAM OF THE NECK CLINICAL INFORMATION: stroke like symptoms. TECHNIQUE: CT angiogram performed following intravenous administration of nonionic intravenous contrast. Coronal and sagittal and 3-D volume rendered maximum intensity projection images generated and reviewed under concurrent physician supervision. Automated exposure control utilized. The [place] Symptomatic Carotid Endarterectomy Trial (NASCET) method for [...] 12/30/2024 2:36 PM INDICATION: Urgent plasmapheresis ATTENDING: Vanessa Rivera MD SEDATION: 50 mcg of fentanyl [...] is available for immediate use. Finalized by Vanessa Rivera MD on 12/30/2024 2:37 PM Echo [...] AM Neuro Invasiv Result Date: 12/27/2024 Narrative: Tereza Ceja is 49 y.o. who was transferred to [facility] with acute onset left hemispheric stroke symptoms. [...] was quoted. Consent was obtained. Procedure: Tereza Ceja was identified and brought to the neuro IR suite. Patient was placed supine on the angio table. Bilateral groins were shaved, prepped and the patient was draped in the usual sterile manner. Using modified Seldinger technique a 6 Lebanese sheath was advanced in the right common femoral artery. Through this sheath we now advanced a 5 Lebanese Seymour 2 catheter over an 035 wire [...] groin sheath was exchanged for a 6 Lebanese 90 cm NeuronMax sheath which was advanced into the distal cervical segment of the left internal carotid artery. Through this sheath we now advanced a triaxial assembly of Dory 6 Lebanese mid size catheter over a velocity microcatheter [...] common carotid artery. Under roadmap, Dory 6 Lebanese was advanced over synchro microwire into the distal cervical ICA. Follow-up angiographic run from the Madeline catheter showed recanalization of the left middle cerebral artery. With pump aspiration, the Madeline 6 Lebanese was retrieved and then we did angiographic mckinney from the guide sheath which showed severe vasospasm involving the mid cervical ICA and unfortunately we occlusion of the distal left MCA M1 segment. Now using same triaxial system composed of Dory 6 Lebanese mid size catheter over a velocity microcatheter [...] normal runoff to the distal extremity. Impression:Tereza Ceja underwent diagnostic cerebral angiography and aspiration [...] of 40 mL Omnipaque 350. Postprocessing with urturn and/or GeoPage software was used. Specifically, maps of cerebral blood flow, cerebral blood volume, mean transit time and Tmax were calculated by using the perfusion source data. COMPARISON: CT brain same date. Image quality: Sufficient Arterial input function GEMA selected: Proximal left MCA Venous outflow function GEMA: [place] of sinuses FINDINGS: CT Perfusion Characteristics: CBF<30% [...] on 12/26/2024 at 2:47 PM Finalized by Vanessa Rivera MD on 12/26/2024 2:[address] angiogram carotid Result Date: 12/26/2024 Narrative: CLINICAL INFORMATION: stroke alert TECHNIQUE: CT angiogram performed following intravenous administration of nonionic intravenous contrast. Coronal and sagittal and 3-D volume rendered maximum intensity projection images generated and reviewed under concurrent physician supervision. Automated exposure control utilized. The [place] Symptomatic Carotid Endarterectomy Trial (NASCET) method for [...] recommend dedicated evaluation with ultrasound. Finalized by Vanessa Rivera MD on 12/26/2024 2:[address] [...] symptoms Active Problems: TTP (thrombotic thrombocytopenic purpura) ([facility] Weakness History of thrombectomy History of stroke Leukocytosis Hypomagnesemia Acute deep vein thrombosis (DVT) of femoral vein of right lower extremity ([facility] ASSESSMENT & PLAN Stroke-like symptoms left-sided facial droop and weakness History of recent stroke on December 26 for aphasia and right-sided weakness patient was given TNK at [facility] and was transferred to [place] for mechanical thrombectomy -patient had thrombectomy Left [...] of TTP (05/12) -seen Hematology while at [place] -received plasmapheresis () for TTP while at [facility] in early December -+ last flare-up was 2013 where she was treated with 4 cycles of rituximab hematology seen while at [facility] planning to start weekly rituximab x4 after plasmapheresis treatment was completed -hematology did clear patient to be on anticoagulation as long as platelet count is 40 and above -did not require an IVC filter placement at this time was on a heparin drip for a short time at [place] until transitioned over to DOAC -add iron/tibc, [...] JERAMY plan as above, unless otherwise noted. MORIS RICE MD [facility] 01-16-2025 History and physical note Images from the original note were not included. [facility] INTER[facility] MEDIC[facility] [address] [place] [id number] Hospital Medicine History & Physical Patient: Tereza Ceja Date of : 1975 Room: PCP: DESTIN HUBBARD MD Admission date: 01/15/2025 3:03 PM Encounter date: 01/16/25 Hospital Day: 2 SUBJECTIVE Tereza Ceja is a 49 y.o. female who presents with complaints of left-sided facial droop and slurred speech last known [...] ER NIH stroke score is a 6 secondary to left arm falls right leg falls left leg falls articulation and mild dysarthria. Stroke alert was contacted recommended admitting for MRI. Patient is not a TNK candidate secondary to being out of the time window. Results in the ER include white blood cell count 11.5 hemoglobin 10.4 hematocrit 32.1 platelets 218 absolute neutrophils 9.3 INR normal PTT 25 electrolytes normal excluding 190 glucose calcium 8.3 GFR 85 phosphorus is 2.9 troponin initially done x1 negative TSH 0.[address] brain No acute intracranial abnormality, by CT. MRI is more sensitive for evaluation of ischemia or subtle parenchymal abnormalities. Partially empty sella. CTA head No large vessel occlusion, critical stenosis, or sizable aneurysm. CTA neck Stable normal CTA neck. There is no stenosis in the neck. EKG sinus rhythm PVCs borderline short MN interval consider anterior infarct borderline T abnormalities [...] total) before bedtime. 01/01/25 Yes Itiya Robbie, [employer] apixaban (ELIQUIS) 5 mg tablet Take 1 tablet (5 mg total) by mouth in the morning and 1 tablet (5 mg total) before bedtime. 01/04/25 Yes Itiya Robbie, [employer] aspirin 81 mg Take 1 tablet (81 mg total) by mouth in the morning. 01/05/25 Yes Vanessa Blanchard MD atorvastatin (LIPITOR) 40 mg tablet Take 1 tablet (40 mg total) by mouth nightly. 01/05/25 Yes Vanessa Blanchard MD cyanocobalamin (vitamin B-12) 1000 MCG [...] and should be tapered off. 01/05/25 Yes Vanessa Blanchard MD senna (SENOKOT) 8.6 mg tablet Take 1 tablet (8.6 mg total) by mouth in the morning. Yes Not In System Ref Prov Code Status: Full Code Past Medical History: Patient has a past medical history of H/O degenerative disc disease, PONV (postoperative nausea and vomiting), Sciatica, Sciatica, right side, Stroke (cerebrum) ([facility]) (12/26/2024), and T.T.P. syndrome ([facility] Past Surgical History: Patient has a past [...] OBJECTIVE BP 112/71 Pulse 80 Temp 36.9 C (98.4 F) (Oral) Resp 17 Ht 154.9 cm (5' 1 ) Wt 104 kg (229 lb 4.8 oz) SpO2 99% BMI 43.33 kg/m Temp: [36.6 C (97.8 F)-36.9 C (98.4 F)] 36.9 C (98.4 F) Pulse: [64-88] 80 Resp: [14-20] 17 BP: [...] Abnormality Status --------- ------ Troponin I, High Sensiti...[[id number]] Normal Final result Troponin I, High Sensiti...[[id number]] Please view results for these tests on [...] Procedure Abnormality Status --------- ------ Light Blue Top[[id number]] Final result Please view results for these [...] ACAs: Normal bilaterally. AComm: Normal P-Comms and seasonal delivery driver: seasonal delivery driver are patent bilaterally. Posterior communicating arteries are not well visualized. Vertebral arteries: Normal to the confluence with the basilar artery. Basilar artery: Normal. IMPRESSION: No large vessel occlusion, critical stenosis, or sizable aneurysm. Finalized by Gilberto Morales on 01/15/2025 4:[address] angiogram carotid Result Date: 01/15/2025 Narrative: CT ANGIOGRAM OF THE NECK CLINICAL INFORMATION: stroke like symptoms. TECHNIQUE: CT angiogram performed following intravenous administration of nonionic intravenous contrast. Coronal and sagittal and 3-D volume rendered maximum intensity projection images generated and reviewed under concurrent physician supervision. Automated exposure control utilized. The [place] Symptomatic Carotid Endarterectomy Trial (NASCET) method for [...] 12/30/2024 2:36 PM INDICATION: Urgent plasmapheresis ATTENDING: Vanessa Rivera MD SEDATION: 50 mcg of fentanyl [...] is available for immediate use. Finalized by Vanessa Rivera MD on 12/30/2024 2:37 PM Echo [...] AM Neuro Invasiv Result Date: 12/27/2024 Narrative: Tereza Ceja is 49 y.o. who was transferred to [facility] with acute onset left hemispheric stroke symptoms. [...] was quoted. Consent was obtained. Procedure: Tereza Ceja was identified and brought to the neuro IR suite. Patient was placed supine on the angio table. Bilateral groins were shaved, prepped and the patient was draped in the usual sterile manner. Using modified Seldinger technique a 6 Lebanese sheath was advanced in the right common femoral artery. Through this sheath we now advanced a 5 Lebanese Seymour 2 catheter over an 035 wire [...] groin sheath was exchanged for a 6 Lebanese 90 cm NeuronMax sheath which was advanced into the distal cervical segment of the left internal carotid artery. Through this sheath we now advanced a triaxial assembly of Dory 6 Lebanese mid size catheter over a velocity microcatheter [...] common carotid artery. Under roadmap, Dory 6 Lebanese was advanced over synchro microwire into the distal cervical ICA. Follow-up angiographic run from the Madeline catheter showed recanalization of the left middle cerebral artery. With pump aspiration, the Madeline 6 Lebanese was retrieved and then we did angiographic mckinney from the guide sheath which showed severe vasospasm involving the mid cervical ICA and unfortunately we occlusion of the distal left MCA M1 segment. Now using same triaxial system composed of Dory 6 Lebanese mid size catheter over a velocity microcatheter [...] normal runoff to the distal extremity. Impression:Tereza Ceja underwent diagnostic cerebral angiography and aspiration [...] mL Omnipaque 350. Postprocessing with RAPID and/or [place] Via software was used. Specifically, maps of cerebral blood flow, cerebral blood volume, mean transit time and Tmax were calculated by using the perfusion source data. COMPARISON: CT brain same date. Image quality: Sufficient Arterial input function GEMA selected: Proximal left MCA Venous outflow function GEMA: [place] of sinuses FINDINGS: CT Perfusion Characteristics: CBF<30% [...] on 12/26/2024 at 2:47 PM Finalized by Vanessa Rivera MD on 12/26/2024 2:[address] angiogram carotid Result Date: 12/26/2024 Narrative: CLINICAL INFORMATION: stroke alert TECHNIQUE: CT angiogram performed following intravenous administration of nonionic intravenous contrast. Coronal and sagittal and 3-D volume rendered maximum intensity projection images generated and reviewed under concurrent physician supervision. Automated exposure control utilized. The [place] Symptomatic Carotid Endarterectomy Trial (NASCET) method for [...] recommend dedicated evaluation with ultrasound. Finalized by Vanessa Rivera MD on 12/26/2024 2:[address] brain without contrast stroke alert Result Date: 12/26/2024 Narrative: CT BRAIN WO CONT STROKE ALERT INDICATION: Stroke. TECHNIQUE: CT of the head without intravenous contrast. Reviewed in brain, bone, and soft tissue windows. COMPARISON: CT 07/03/2013. FINDINGS: No intracranial hemorrhage. No territorial loss of iwlson-white differentiation. The ventricular system is normal in [...] symptoms Active Problems: TTP (thrombotic thrombocytopenic purpura) (CMS-HCC) Weakness History of thrombectomy History of stroke Leukocytosis Hypomagnesemia Acute deep vein thrombosis (DVT) of femoral vein of right lower extremity (CMS-HCC) ASSESSMENT & PLAN Stroke-like symptoms left-sided facial droop and weakness History of recent stroke on December 26 for aphasia and right-sided weakness patient was given TNK at [facility] and was transferred to [place] for mechanical thrombectomy -patient had thrombectomy Left [...] of TTP (05/12) -seen Hematology while at [place] -received plasmapheresis () for TTP while at [facility] in early December -+ last flare-up was 2013 where she was treated with 4 cycles of rituximab hematology seen while at [facility] planning to start weekly rituximab x4 after plasmapheresis treatment was completed -hematology did clear patient to be on anticoagulation as long as platelet count is 40 and above -did not require an IVC filter placement at this time was on a heparin drip for a short time at [place] until transitioned over to DOAC -add iron/tibc, [...] JERAMY plan as above, unless otherwise noted. MORIS RICE MD documented in this encounter [facility] 01-16-2025 Plan of care note Problem: Knowledge Deficit Goal: Patient/patient call center representative demonstrates understanding of disease process, treatment plan, medications, and discharge instructions Description: INTERVENTIONS 1. Complete [...] goal: Continue to assess for when appropriate. [facility] 01-16-2025 Plan of care note Problem: Pain Goal: Patient goal is pain score less than 4, able to rest, and participant in treatment plan as appropriate Description: INTERVENTIONS: 1. Encourage patient or legal call center representative to report early pain and ask [...] per policy 9. Teach patient or legal call center representative interventions for comforting Outcome: Progressing Note: [...] at the bedside 7. Instruct patient/ patient call center representative about use of safety devices 8. Include patient/ patient call center representative in decisions related to safety Outcome: [...] hygiene technique. 7. Identify and instruct patient/patient call center representative in use of appropriate isolation precautions for identified infection/symptoms. 8. Provide and discuss with patient/patient call center representative on educational MDRO sheet. 9. Encourage and monitor nutritional status daily and consult tube cutter if indicated. 10. Implement neutropenic guidelines as needed. Outcome: Progressing Note: Evaluation of progress towards goal: Patient VS WNL, remains afebrile for shift. Continue to monitor. Problem: Knowledge Deficit Goal: Patient/patient call center representative demonstrates understanding of disease process, treatment plan, medications, and discharge instructions Description: INTERVENTIONS 1. Complete [...] of consciousness, motor function, sensory function, and level of assistance needed for ADLs 4. Monitor and [...] and report duration and description of seizure to LIP 10. If seizure occurs, turn patient to [...] supplement as ordered 13. Collaborate with clinical tube cutter 14. Include patient/ patient's call center representative in decisions related to nutrition Outcome: Progressing Note: Evaluation of progress towards goal: Patient understands the importance of proper nutrition to aid in healing. Problem: Moderate - High Risk Fall Score Description: Painting Fall Score of =/> 25 or indicated by [facility] Assessment Goal: Patient should be free from fall Description: Interventions: 1. Quinter to environment 2. Hourly rounds addressing the [...] non-skid footwear 11. Teach patient and patient call center representative to maintain environment for safety and [...] (cane, walker) within reach 19. Request patient call center representative bring adaptive equipment/mobility aids from home or obtain and provide as needed 20. Consult pharmacy regarding effects of med's affecting mobility, cognition, and alternatives 21. Obtain physician order for PT if risk factors associated with mobility are present 22. Obtain physician order for OT as appropriate 23. Utilize diversional activities 24. Educate patient and patient call center representative how to maintain a safe environment during visitation times (notify nurse prior to leaving bedside) 25. Consider appropriateness of medical or non-medical claims representative 26. Set up voiding schedule as appropriate (every 2 hours) Outcome: Progressing Note: Evaluation of progress towards goal: Pt remains free from falls or accidental injury during shift. Fall prevention measures in place. Hourly rounding per RN and maintained. [facility] 01-15-2025 Emergency department Note Admit 214, up after 1810 [facility] 01-15-2025 Emergency department Note Admit 214, up after 1810 Pt daughter requests to speak with RN regarding potential placement in assisted living or increase in assistance at home. Primary RN and provider informed of converstation. Pt family at report that pt woke up with left sided facial droop and slurred speech. Pt family reports that LKW was 01/14 at 2130 before going to bed. Associated Order(s): ED NIHSS And Thrombolytic MD Screening Images from the original note were not included. [facility] Pt Name: Tereza Ceja Birthdate: 1975 Chief Complaint: Chief Complaint Patient presents with Stroke Alert History of Present Illness: Initial assessment performed by Dr. Wagner Shah at 3:02 PM. Patient presents to the ED today with complaints of stroke like symptoms. Pt's daughter states that when she arrived home the pt woke up [...] at this time. 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 Overall Financial Resource Strain (CARDIA) Difficulty of Paying Living Expenses: Not very hard Food Insecurity: No Food Insecurity (01/16/2025) Hunger Screening Food Insecurity - Worry: Never True Food Insecurity - Inability: Never True Transportation Needs: No Transportation Needs (01/16/2025) PRAPARE - Transportation Lack of Transportation (Medical): No Lack of Transportation (Non-Medical): No Physical Activity: Insufficiently Active (02/04/2024) Received from [facility] Exercise Vital Sign Days of Exercise per Week: 3 days Minutes of Exercise per Session: 40 min Social Connections: Moderately Isolated (02/04/2024) Received from [facility] Social Connection and Isolation Panel [NHANES] Frequency of Communication with Friends and Family: More than three times a week Frequency of Social Gatherings with Friends and Family: Once a week Attends Restorationism Services: More than 4 times per year [...] BP: 135/79 129/78 112/71 105/62 Temp: 36.7 C (98 F) 36.7 C (98 F) 36.9 C (98.4 F) 36.9 C (98.5 F) TempSrc: Oral Oral Oral Oral Pulse: 73 71 80 75 Resp: 16 18 17 17 SpO2: 99% 97% 99% 99% MAP (mmHg): 96 89 85 76 Height: Weight: 99 Physical Exam Vitals reviewed. Constitutional: Appearance: She is well-developed and well-groomed. HENT: Head: Normocephalic and atraumatic. Mouth/Throat: Lips: Foraker. Eyes: Conjunctiva/sclera: Conjunctivae normal. Cardiovascular: Rate and [...] history and assessment of the patient. Re-evaluation: I, Nilam Mast (scribe), documented on behalf and in the [...] 15, 2025 4:40 PM Comment Diagnosis: Weakness [[id number]] Admitting Physician: MORIS RICE [[id number]] Attending Provider: MORIS RICE [[id number]] Medications Prescribed this Visit This print group is not available in inpatient encounters. Please contact a electronic pagination system operator. . Please note that portions of this note were completed with a voice recognition program. Efforts were made to edit the dictations but occasionally words are mis-transcribed. [facility] 01/15/25 1525 [facility] 01/15/25 1526 [facility] 01/15/25 1526 [facility] 01/15/25 1527 [facility] 01/15/25 1527 [facility] 01/15/25 1540 [facility] 01/15/25 1546 Kiah Valverde 01/15/25 1604 Kiah Valverde 01/15/25 1636 K[facility] Valverde 01/15/25 1637 K[facility] Val[facility]de 01/15/25 1639 K[facility] Val[facility]de 01/15/25 1641 K[facility] Val[facility]de 01/15/25 1712 K[facility] Val[facility]de 01/15/25 1746 Severiano Shah MD 01/16/25 1226 documented in this encounter [facility] 01-15-2025 Emergency department Note Pt daughter requests to speak with RN regarding potential placement in assisted living or increase in assistance at home. Primary RN and provider informed of converstation. [facility] 01-15-2025 Emergency department Triage note Pt family at report that pt woke up with left sided facial droop and slurred speech. Pt family reports that LKW was 518 at 2130 before going to bed. [facility] 01-15-2025 Physician Emergency department Note Associated Order(s): ED NIHSS And Thrombolytic MD Screening Images from the original note were not included. [facility] Pt Name: Tereza Ceja Birthdate: 1975 Chief Complaint: Chief Complaint Patient presents with Stroke Alert History of Present Illness: Initial assessment performed by Dr. Wagner Shah at 3:02 PM. Patient presents to the ED today with complaints of stroke like symptoms. Pt's daughter states that when she arrived home the pt woke up [...] at this time. 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 Overall Financial Resource Strain (CARDIA) Difficulty of Paying Living Expenses: Not very hard Food Insecurity: No Food Insecurity (01/16/2025) Hunger Screening Food Insecurity - Worry: Never True Food Insecurity - Inability: Never True Transportation Needs: No Transportation Needs (01/16/2025) PRAPARE - Transportation Lack of Transportation (Medical): No Lack of Transportation (Non-Medical): No Physical Activity: Insufficiently Active (02/04/2024) Received from [facility] Exercise Vital Sign Days of Exercise per Week: 3 days Minutes of Exercise per Session: 40 min Social Connections: Moderately Isolated (02/04/2024) Received from [facility] Social Connection and Isolation Panel [NHANES] Frequency of Communication with Friends and Family: More than three times a week Frequency of Social Gatherings with Friends and Family: Once a week Attends Restorationism Services: More than 4 times per year [...] BP: 135/79 129/78 112/71 105/62 Temp: 36.7 C (98 F) 36.7 C (98 F) 36.9 C (98.4 F) 36.9 C (98.5 F) TempSrc: Oral Oral Oral Oral Pulse: 73 71 80 75 Resp: 16 18 17 17 SpO2: 99% 97% 99% 99% MAP (mmHg): 96 89 85 76 Height: Weight: 99 Physical Exam Vitals reviewed. Constitutional: Appearance: She is well-developed and well-groomed. HENT: Head: Normocephalic and atraumatic. Mouth/Throat: Lips: Foraker. Eyes: Conjunctiva/sclera: Conjunctivae normal. Cardiovascular: Rate and [...] Dr. Lara spoke with Deanne (hospitalist) and [facility] via messaging about patient getting admitted. They accepted admission. Risk Prescription drug management. ED Course: Clinical Impressions as of 01/16/25 1226 Weakness . ED Disposition ED Disposition Observation Date/Time WedJanuary 15, 2025 4:40 PM Comment Diagnosis: Weakness [[id number]] Admitting Physician: MORIS RICE [[id number]] Attending Provider: MORIS RICE [[id number]] Medications Prescribed this Visit This print group is not available in inpatient encounters. Please contact a electronic pagination system operator. . Please note that portions of this note were completed with a voice recognition program. Efforts were made to edit the dictations but occasionally words are mis-transcribed. [facility] 01/15/25 1525 [facility] 01/15/25 1526 [facility] 01/15/25 1526 [facility] 01/15/25 1527 [facility] 01/15/25 1527 [facility] 01/15/25 1540 [facility]15/[facility] 01/[facility]/25 1746 Severiano Shah MD 01/16/25 1226 [facility] Work Phone: 01-08-2025 Miscellaneous Notes Pt son calling in to schedule HDF/U with Dr. Garcia- I see an appt scheduled already with Dr. Daigle. I dont see in any notes any specific f/u so I am wondering if he needs to be scheduled with both [facility]. Please advise Called over to discharge nurse in [facility] spoke with Cameron about patients questions and he said Courtney will call back to advise if pt needs to be scheduled with both providers. Thank you. documented in this encounter [facility] 01-08-2025 Telephone encounter Note Pt son calling in to schedule HDF/U with Dr. Garcia- I see an appt scheduled already with Dr. Daigle. I dont see in any notes any specific f/u so I am wondering if he needs to be scheduled with both [facility]. Please advise [facility] 01-08-2025 Telephone encounter Note Called over to discharge nurse in [facility] spoke with Cameron about patients questions and he said Courtney will call back to advise if pt needs to be scheduled with both providers. Thank you. [facility] 12-30-2024 Miscellaneous Notes Contract: CLIFTON Guerrier [facility] [phone] re new line placement Called Dr Rivera connected w Chey documented in this encounter [facility] 12-30-2024 Telephone encounter Note Contract: CLIFTON Guerrier [facility] [phone] re new line placement Called Dr Rivera connected w Chey [facility] 12-30-2024 Miscellaneous Notes Contract: CLIFTON Padilla [facility] [phone] re placement of an IJ Called Dr Miguel kessler sent secure chat documented in this encounter [facility] 12-30-2024 Telephone encounter Note Contract: CLIFTON Padilla [facility] [phone] re placement of an IJ Called Dr Miguel kessler sent secure chat [facility] 12-30-2024 Miscellaneous Notes Contract: CLIFTON [facility] Rm [phone] New Consult Contract: CLIFTON Sent Secure chat to Dr Rivera documented in this encounter [facility] 12-30-2024 Telephone encounter Note Contract: CLIFTON [facility] Rm [phone] New Consult [facility] 12-30-2024 Telephone encounter Note Contract: CLIFTON Sent Secure chat to Dr Rivera [facility] 12-26-2024 Miscellaneous Notes Contract: 122 re TTP Low Platelet Count Call was connected to TTH documented in this encounter [facility] 12-26-2024 Telephone encounter Note Contract: 122 re TTP Low Platelet Count [facility] 12-26-2024 Telephone encounter Note Call was connected to TTH [facility] 12-26-2024 Note XR CHEST 1 VIEW STRO KE History: Mental status changes Procedure: Chest AP portable upright Comparison: 10/03/2013 Findings: The heart and lungs show no acute findings, and the mediastinum and darin are grossly negative . No pneumothorax. Impression: No acute pulmonary process. Finalized by Esteban Schulz MD on 12/26/2024 2:53 PM [facility] 09-28-2024 History of Present illness Narrative Associated Problem(s): Class 2 severe obesity due to excess calories with serious comorbidity and body mass index (BMI) of 37.0 to 37.9 in adult ([facility]) Patient overweight and difficult time losing weight. Discussed proper diet and regular aerobic exercise. Recommend Weight Watchers and need to limit calories and smaller portions. Need to increase activity and regular aerobic exercise several days a week for 30 minutes at a time. Interested in adipex and warned of potential cardiac side effects. Resume adipex. OARRS reviewed. Continue medications as prescribed. Associated Problem(s): DDD (degenerative disc disease), cervical Pain improved with celebrex and continue. Use tylenol #3 PRN. Associated Problem(s): DDD (degenerative disc disease), lumbar Pain improved with celebrex and continue. Use tylenol #3 PRN. Associated Problem(s): Gastroesophageal reflux disease without esophagitis Symptoms controlled with omeprazole and continue. Associated Problem(s): Prediabetes At times feels like low BS and monitor PRN. Continue metformin. Images from the original note were not included. Subjective Patient ID: Tereza Ceja is a 49 y.o. female who presents for Follow-up. Follow up pain, GERD, and weight. Pain improved today. Mild pain in back and neck. Pain increased with activity and at end of day. Taking celebrex and helps. Occasionally using tylenol #3 and helps. GERD controlled with omeprazole. Denies epigastric pain or burning and not waking up with symptoms. Weight down 1 pound. Seen by invoicing machine operator and started metformin. Trying to eat several small meals. Taking adipex and helps. Review of Systems Respiratory: Negative for cough, shortness of breath and wheezing. Cardiovascular: Negative for chest pain and palpitations. Gastrointestinal: Negative for abdominal pain, diarrhea, nausea and vomiting. Genitourinary: Negative for dysuria. Objective Physical Exam Constitutional: General: She is not in acute distress. Appearance: Normal appearance. HENT: Head: Normocephalic. Right Ear: Tympanic membrane normal. Left Ear: Tympanic membrane normal. Eyes: Extraocular Movements: Extraocular movements intact. Pupils: Pupils are equal, round, and reactive to light. Cardiovascular: Rate and Rhythm: Normal rate and regular rhythm. Heart sounds: No murmur heard. No friction rub. No gallop. Pulmonary: Effort: Pulmonary effort is normal. Breath sounds: Normal breath sounds. No wheezing, rhonchi or rales. Abdominal: General: Bowel sounds are normal. There is no distension. Palpations: Abdomen is soft. Tenderness: There is no abdominal tenderness. There is no guarding or rebound. Musculoskeletal: Cervical back: Neck supple. Right lower leg: No edema. Left lower leg: No edema. Neurological: Mental Status: She is alert. Assessment/Plan Problem List Items Addressed This Visit Prediabetes At times feels like low BS and monitor PRN. Continue metformin. Relevant Medications Blood Glucose Monitoring Suppl (Blood Glucose Monitor System) w/Device kit Glucose Blood (Blood Glucose Test Strips 333) strip Lancets Micro Thin 33G [facility] Class 2 severe obesity due to excess calories with serious comorbidity and body mass index (BMI) of 39.0 to 39.9 in adult ([facility]) Patient overweight and difficult time losing weight. Discussed proper diet and regular aerobic exercise. Recommend Weight Watchers and need to limit calories and smaller portions. Need to increase activity and regular aerobic exercise several days a week for 30 minutes at a time. Interested in adipex and warned of potential cardiac side effects. Resume adipex. OARRS reviewed. Continue medications as prescribed. DDD (degenerative disc disease), cervical - Primary Pain improved with celebrex and continue. Use tylenol #3 PRN. DDD (degenerative disc disease), lumbar Pain improved with celebrex and continue. Use tylenol #3 PRN. Gastroesophageal reflux disease without esophagitis Symptoms controlled with omeprazole and continue. documented in this encounter [facility] 09-05-2024 History of Present illness Narrative Reason for Appointment: Patient ID: Tereza Ceja is a 48 y.o. female who presents for [facility] Women Visit Patient presents today for Annual Exam. MEDICATIONS Current Outpatient Medications Medication Instructions celecoxib (CELEBREX) 200 mg, Oral, 2 times daily PRN, Take with food cyclobenzaprine (FLEXERIL) 10 mg, Oral, 3 times daily nystatin (Mycostatin) [id number] UNIT/GM powder Topical, 2 times daily omeprazole (PRILOSEC) 40 mg, Oral, Daily before breakfast, Do not crush or chew. phentermine (ADIPEX-P) 37.5 mg, Oral, Daily before breakfast ALLERGIES Allergies Allergen Reactions Metoclopramide Anaphylaxis and Shortness of breath Sulfa Antibiotics Anaphylaxis Naproxen Other and Rash TTP reaction PROBLEMS Active Ambulatory Problems Diagnosis Date Noted Annual physical exam 01/20/2024 Prediabetes 02/10/2024 LUIZ (obstructive sleep apnea) 02/10/2024 Class 2 severe obesity due to excess calories with serious comorbidity and body mass index (BMI) of 39.0 to 39.9 in adult ([facility]) 02/10/2024 Encounter for long-term current use of medication 02/22/2024 Menopausal syndrome (hot flashes) 04/06/2024 Drug-induced constipation 04/06/2024 Primary osteoarthritis, right shoulder 04/06/2024 DDD (degenerative disc disease), cervical 05/10/2024 DDD (degenerative disc disease), lumbar 05/15/2024 History of TTP (thrombotic thrombocytopenic purpura) 06/02/2024 Gastroesophageal reflux disease without esophagitis 06/02/2024 Resolved Ambulatory Problems Diagnosis Date Noted Spasm of right trapezius muscle 02/10/2024 Skin candidiasis 02/10/2024 Abscess of right axilla 05/10/2024 Tinea corporis 05/10/2024 No Additional Past Medical History HISTORY PAST MEDICAL HISTORY SOCIAL HISTORY History reviewed. No pertinent past medical history. Social History Tobacco Use Smoking status: Every Day Current packs/day: 0.50 Types: Cigarettes Smokeless tobacco: Never Substance Use Topics Alcohol use: Not on file Drug use: Not on file FAMILY HISTORY No family history on file. SURGICAL HISTORY Past Surgical History: Procedure Laterality Date CT ANGIOGRAM HEART CORONARY 10/03/2013 CT ANGIOGRAM TAVR 10/03/2013 HYSTERECTOMY 06/2007 IR CVC NONTUNNELED 05/20/2013 IR CVC NONTUNNELED 05/20/2013 MR ANGIOGRAM HEAD W AND WO IV CONTRAST 05/22/2013 MR ANGIOGRAM HEAD W AND WO IV CONTRAST 05/22/2013 REVIEW OF SYSTEMS Review of Systems: Review of Systems Constitutional: Negative. HENT: Negative. Eyes: Negative. Respiratory: Negative. Cardiovascular: Negative. Gastrointestinal: Negative. Genitourinary: Negative. Musculoskeletal: Negative. Skin: Negative. Neurological: Negative. All other systems reviewed and are negative. Hematological: Negative. Endocrine: Negative. Allergic/Immunologic: Negative. OBJECTIVE Objective: Physical Exam Constitutional: Appearance: Normal appearance. She is well-developed. Genitourinary: Vulva normal. Cardiovascular: Rate and Rhythm: Normal rate and regular rhythm. Pulmonary: Effort: Pulmonary effort is normal. Breath sounds: Normal breath sounds. Abdominal: General: Bowel sounds are normal. There is no distension. Palpations: Abdomen is soft. Tenderness: There is no abdominal tenderness. There is no guarding or rebound. Musculoskeletal: General: No swelling. Normal range of motion. Right lower leg: No edema. Left lower leg: No edema. Neurological: Mental Status: She is alert and oriented to person, place, and time. Skin: General: Skin is warm and dry. Psychiatric: Mood and Affect: Mood normal. Behavior: Behavior normal. Vitals and nursing note reviewed. Exam conducted with a clinical nursing assistant present. Vitals: Estimated body mass index is 37.86 kg/m as calculated from the following: Height as of this encounter: 5' 2 . Weight as of this encounter: 207 lb. BP: 100/64 No LMP recorded. Patient has had a hysterectomy. ASSESSMENT & PLAN ICD-10-CM 1. Well woman exam with routine gynecological exam Z01.419 THIN PREP TIS PAP AND HR HPV DNA 2. Breast cancer screening by mammogram Z12.31 Bilateral screening mammogram Bilateral screening mammogram 3. Exposure to STD Z20.2 CHLAMYDIA TRACHOMATIS (GENITO/STI) Neisseria gonorrhea DNA probe, direct 4. Vaginal discharge N89.8 SURESWAB(R) ADVANCED VAGINITIS PLUS, TMA Annual: Patient presents today for an annual exam. Patient states she is doing well and has complaints of weight gain and recurrent yeast infections and skin yeast infections. 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 Rx for metformin faxed to pharmacy. Pap and cultures was obtained without difficulty and patient given mammogram order to have scheduled/obtained. Orders Placed This Encounter Procedures Bilateral screening mammogram CHLAMYDIA TRACHOMATIS (GENITO/STI) Neisseria gonorrhea DNA probe, direct Follow Up: Patient is to return in one year for annual unless needed otherwise. Documented by Vale Mai LPN on behalf of: Blayne Rangel DO documented in this encounter [facility] 08-28-2024 History of Present illness Narrative Associated Problem(s): Gastroesophageal reflux disease without esophagitis Symptoms controlled with omeprazole and continue. Associated Problem(s): DDD (degenerative disc disease), lumbar Pain worse and start celebrex daily. Use tylenol #3 PRN. Associated Problem(s): DDD (degenerative disc disease), cervical Pain worse and start celebrex daily. Use tylenol #3 PRN. Associated Problem(s): Class 2 severe obesity due to excess calories with serious comorbidity and body mass index (BMI) of 39.0 to 39.9 in adult ([facility]) Patient overweight and difficult time losing weight. [...] month. OARRS reviewed. Continue medications as prescribed. Images from the original note were not included. Subjective Patient ID: Tereza Ceja is a 48 y.o. female who presents for Follow-up (2 m/Er 2 weeks ago back pain). Follow up pain, GERD, and weight. Pain unchanged. Continues to have pain in back and neck. Pain increased with activity and at end of day. To ER 08/15 for pain and x-ray negative. Given norco but felt impaired. Taking mobic but not as much relief. GERD controlled with omeprazole. Denies epigastric pain or burning and not waking up with symptoms. Weight up 8 pounds. Not eating as well around '. Requests adipex. Review of Systems Respiratory: Negative for cough, shortness of breath and wheezing. Cardiovascular: Negative for chest pain and palpitations. Gastrointestinal: Negative for abdominal pain, diarrhea, nausea and vomiting. Genitourinary: Negative for dysuria. Objective Physical Exam Constitutional: General: She is not in acute distress. Appearance: Normal appearance. HENT: Head: Normocephalic. Right Ear: Tympanic membrane normal. Left Ear: Tympanic membrane normal. Eyes: Extraocular Movements: Extraocular movements intact. Pupils: Pupils are equal, round, and reactive to light. Cardiovascular: Rate and Rhythm: Normal rate and regular rhythm. Heart sounds: No murmur heard. No friction rub. No gallop. Pulmonary: Effort: Pulmonary effort is normal. Breath sounds: Normal breath sounds. No wheezing, rhonchi or rales. Abdominal: General: Bowel sounds are normal. There is no distension. Palpations: Abdomen is soft. Tenderness: There is no abdominal tenderness. There is no guarding or rebound. Musculoskeletal: Cervical back: Neck supple. Right lower leg: No edema. Left lower leg: No edema. Neurological: Mental Status: She is alert. Assessment/Plan Problem List Items Addressed This Visit Class 2 severe obesity due to excess calories with serious comorbidity and body mass index (BMI) of 39.0 to 39.9 in adult ([facility]) Patient overweight and difficult time losing weight. [...] month. OARRS reviewed. Continue medications as prescribed. Relevant Medications phentermine (Adipex-P) 37.5 MG tablet DDD (degenerative disc disease), cervical Pain worse and start celebrex daily. Use tylenol #3 PRN. DDD (degenerative disc disease), lumbar - Primary Pain worse and start celebrex daily. Use tylenol #3 PRN. Relevant Medications celecoxib (CeleBREX) 200 MG capsule acetaminophen-codeine (Tylenol w/ Codeine #3) 300-30 MG tablet Gastroesophageal reflux disease without esophagitis Symptoms controlled with omeprazole and continue. documented in this encounter [facility] 06-02-2024 History of Present illness Narrative Associated Problem(s): History of TTP (thrombotic thrombocytopenic purpura) Reaction years ago and check CBC. Associated Problem(s): Gastroesophageal reflux disease without esophagitis Severe symptoms and start omeprazole. Associated Problem(s): DDD (degenerative disc disease), lumbar X-ray with OA and start mobic PRN. Use flexeril PRN. Increase activity. Use ultram for severe pain. If no improvement will need PT and possible referral for injections. Associated Problem(s): DDD (degenerative disc disease), cervical X-ray with OA and start mobic PRN. Use flexeril PRN. Increase activity. Use ultram for severe pain. If no improvement will need PT and possible referral for injections. Images from the original note were not included. Subjective Patient ID: Tereza Ceja is a 48 y.o. female who presents for Follow-up (labwork). Follow up pain. Continues to have pain in neck, upper and lower back, and right shoulder. X-rays showed DDD throughout spine and OA in right shoulder. Stiff and sore in am and improved once up and moving. Pain after activity and with increased exertion. Using advil PRN and not much relief. C/o severe GERD over past few weeks. Epigastric pain and burning and much worse after eating. Increased symptoms at bedtime and if laying down. Not tried OTC. History of TTP years ago and thought possibly related to naproxen. Taken advil since without complication. Trying to get life insurance and needs CBC. Review of Systems Respiratory: Negative for cough, shortness of breath and wheezing. Cardiovascular: Negative for chest pain and palpitations. Gastrointestinal: Negative for abdominal pain, diarrhea, nausea and vomiting. Genitourinary: Negative for dysuria. Objective Physical Exam Constitutional: General: She is not in acute distress. Appearance: Normal appearance. HENT: Head: Normocephalic. Right Ear: Tympanic membrane normal. Left Ear: Tympanic membrane normal. Eyes: Extraocular Movements: Extraocular movements intact. Pupils: Pupils are equal, round, and reactive to light. Cardiovascular: Rate and Rhythm: Normal rate and regular rhythm. Heart sounds: No murmur heard. No friction rub. No gallop. Pulmonary: Effort: Pulmonary effort is normal. Breath sounds: Normal breath sounds. No wheezing, rhonchi or rales. Abdominal: General: Bowel sounds are normal. There is no distension. Palpations: Abdomen is soft. Tenderness: There is no abdominal tenderness. There is no guarding or rebound. Musculoskeletal: Cervical back: Neck supple. Right lower leg: No edema. Left lower leg: No edema. Neurological: Mental Status: She is alert. Assessment/Plan Problem List Items Addressed This Visit DDD (degenerative disc disease), cervical - Primary X-ray with OA and start mobic PRN. Use flexeril PRN. Increase activity. Use ultram for severe pain. If no improvement will need PT and possible referral for injections. Relevant Medications meloxicam (Mobic) 15 MG tablet DDD (degenerative disc disease), lumbar X-ray with OA and start mobic PRN. Use flexeril PRN. Increase activity. Use ultram for severe pain. If no improvement will need PT and possible referral for injections. History of TTP (thrombotic thrombocytopenic purpura) Reaction years ago and check CBC. Relevant Orders CBC and differential Gastroesophageal reflux disease without esophagitis Severe symptoms and start omeprazole. Relevant Medications omeprazole (PriLOSEC) [address] capsule documented in this encounter [facility] 05-10-2024 History of Present illness Narrative Associated Problem(s): Tinea corporis Rash not responding to OTC topical and treat with oral lamasil. Associated Problem(s): Prediabetes Stressed need to eat regularly and not skip meals. Start ozempic. Associated Problem(s): Chronic right shoulder pain Pain unchanged and check x-ray. Use flexeril PRN. Associated Problem(s): Chronic neck pain Pain unchanged and check x-ray. Use flexeril PRN. Associated Problem(s): Abscess of right axilla Painful abscess and start doxy. Continue warm compresses to help open and drain. Images from the original note were not included. Subjective Patient ID: Tereza Ceja is a 48 y.o. female who presents for Follow-up (1m ). Follow up pain and weight. Continues to have pain in neck and shoulder. Pain to move arm or raise arm. Hard to work or stay active. Pain worse after work. Using flexeril PRN and mild relief. Did not have x-ray. C/o rash under breasts and axillae for weeks. Skin rough, raised, and itchy. Using OTC antifungal cream and no change. Painful bump under right axillae. Skin warm to touch. Used heat and opened and drained. Continues to worry about BS. Episodes where feels lightheaded and blurry vision. Eats and better. A1C 5.9 on labs in January. Often not eating well and skips meals. Review of Systems Respiratory: Negative for cough, shortness of breath and wheezing. Cardiovascular: Negative for chest pain and palpitations. Gastrointestinal: Negative for abdominal pain, diarrhea, nausea and vomiting. Genitourinary: Negative for dysuria. Objective Physical Exam Constitutional: General: She is not in acute distress. Appearance: Normal appearance. HENT: Head: Normocephalic. Right Ear: Tympanic membrane normal. Left Ear: Tympanic membrane normal. Eyes: Extraocular Movements: Extraocular movements intact. Pupils: Pupils are equal, round, and reactive to light. Cardiovascular: Rate and Rhythm: Normal rate and regular rhythm. Heart sounds: No murmur heard. No friction rub. No gallop. Pulmonary: Effort: Pulmonary effort is normal. Breath sounds: Normal breath sounds. No wheezing, rhonchi or rales. Abdominal: General: Bowel sounds are normal. There is no distension. Palpations: Abdomen is soft. Tenderness: There is no abdominal tenderness. There is no guarding or rebound. Musculoskeletal: Cervical back: Neck supple. Right lower leg: No edema. Left lower leg: No edema. Neurological: Mental Status: She is alert. Assessment/Plan Problem List Items Addressed This Visit Prediabetes - Primary Stressed need to eat regularly and not skip meals. Start ozempic. Morbid obesity due to excess calories (CMS/[facility]) Chronic right shoulder pain Pain unchanged and check x-ray. Use flexeril PRN. Chronic neck pain Pain unchanged and check x-ray. Use flexeril PRN. Relevant Orders XR cervical spine 2 or 3 views Abscess of right axilla Painful abscess and start doxy. Continue warm compresses to help open and drain. Relevant Medications doxycycline (Vibra-Tabs) 100 MG tablet Tinea corporis Rash not responding to OTC topical and treat with oral lamasil. Relevant Medications terbinafine (LamISIL) 250 MG tablet documented in this encounter [facility] 03-07-2024 Nurse Note Preoperative Education Checklist- General Surgery date: 03/13/24 Surgery time: 830a Arrival time: 630a 1. Bring a photo ID and your insurance card with you the day of surgery. You will check in at the main lobby of the [facility]- registration desk is straight ahead as soon as you walk in. Tell them you are here for surgery. 2. If you have a Living Will/Durable Power of Tennis Racket Repairer for Health Care that is not on file here, please bring a copy the day of surgery. 3. Please shower/bathe the night before surgery with the provided soap or wipes. Do not shower the morning of surgery- you will do use wipes when you arrive here at the hospital before getting into your surgical gown. Do not shave the area of your procedure for 2 days prior to your surgery. 4. NO powder, lotion, perfume/cologne, aftershave, make-up, deodorant, or hair products after you have bathed. 5. NO nail mozambican/acrylic on at least one finger. If you are having a hand, wrist or foot surgery then all nail mozambican and artificial/acrylic nails must be removed from that hand or foot. 6. Avoid ALL Aspirin and non-steroidal anti-inflammatory drugs and certain vitamins (Ibuprofen, Advil, Aleve, Excedrin, Meloxicam, Celebrex, fish/krill oil, etc.) for 7 days prior to surgery as instructed by your surgeon and/or your prescribing doctor. Tylenol IS ALLOWED. If you are on Ticlid, Xarelto, Eliquis, Pradaxa, Plavix or Coumadin, please check with your prescribing doctor for instructions for when to stop them. 7. If you use an inhaler, continue to use it routinely. 8. Nothing to eat or drink (not even water, gum, mints, or hard candy!) AFTER midnight prior to your surgery. 9. Take only medications that you are instructed to on the morning of surgery with a TINY SIP OF WATER. 10. Choose a responsible adult that will be able to drive you home when you are discharged from your hospital stay for your surgery and can stay with you in your home for 24 hours after your procedure. You must NOT drive any vehicle or operate any machinery for 24 hours after surgery. 11. When you dress for your appointment, please wear loose fitting clothing that is appropriate to accommodate your surgical area procedure. BRING WITH YOU ANY DEVICES YOU MAY NEED: DESTIN hose, ice machine, sling/swath, brace or special shoe, oversized zip-up or button up shirt, CPAP machine if staying overnight. 12. Do NOT wear jewelry, watches, or any piercings or metal for surgery- leave these valuables and money at home. 13. Do NOT wear contact lenses for surgery- glasses are okay if needed. 14. The anesthesiologist will talk with you the day of surgery and will ask you to sign a Consent Form. 15. Refrain from smoking or any type of tobacco use for at least 8 hours and marijuana for 24 hours prior to arrival for your surgery. 16. If a GREEN BLOOD band is given to you, please bring it with you for the day of surgery. 17. Notify your surgeon if you develop any illness before your surgery. 18. If you are staying overnight, please DO NOT BRING your home medications with you. 19. If you have any questions prior to surgery, please call the Preadmission Testing office at [phone], Mon.-Fri. 7 a.m.-3 p.m. Leave a voicemail if needed. Pre-Surgery Instructions: Medication Instructions clotrimazole (LOTRIMIN) 1 % cream Stop taking 0 days prior to procedure cyclobenzaprine (FLEXERIL) 10 mg tablet Stop taking 0 days prior to procedure fluticasone propionate (FLONASE) 50 mcg/actuation nasal spray Stop taking 0 days prior to procedure loratadine (CLARITIN) 10 mg tablet Take morning of procedure if needed phentermine (ADIPEX-P) 37.5 mg tablet Stop taking 0 days prior to procedure sod sulf-pot chloride-mag sulf 1.479-0.188- 0.225 gram tablet Check with prescribing doctor for instructions [facility] 03-07-2024 Miscellaneous Notes Preoperative Education Checklist- General Surgery date: 03/13/24 Surgery time: 830a Arrival time: 630a 1. Bring a photo ID and your insurance card with you the day of surgery. You will check in at the main lobby of the [facility]- registration desk is straight ahead as soon as you walk in. Tell them you are here for surgery. 2. If you have a Living Will/Durable Power of [employer] for Health Care that is not on file here, please bring a copy the day of surgery. 3. Please shower/bathe the night before surgery with the provided soap or wipes. Do not shower the morning of surgery- you will do use wipes when you arrive here at the hospital before getting into your surgical gown. Do not shave the area of your procedure for 2 days prior to your surgery. 4. NO powder, lotion, perfume/cologne, aftershave, make-up, deodorant, or hair products after you have bathed. 5. NO nail mozambican/acrylic on at least one finger. If you are having a hand, wrist or foot surgery then all nail mozambican and artificial/acrylic nails must be removed from that hand or foot. 6. Avoid ALL Aspirin and non-steroidal anti-inflammatory drugs and certain vitamins (Ibuprofen, Advil, Aleve, Excedrin, Meloxicam, Celebrex, fish/krill oil, etc.) for 7 days prior to surgery as instructed by your surgeon and/or your prescribing doctor. Tylenol IS ALLOWED. If you are on Ticlid, Xarelto, Eliquis, Pradaxa, Plavix or Coumadin, please check with your prescribing doctor for instructions for when to stop them. 7. If you use an inhaler, continue to use it routinely. 8. Nothing to eat or drink (not even water, gum, mints, or hard candy!) AFTER midnight prior to your surgery. 9. Take only medications that you are instructed to on the morning of surgery with a TINY SIP OF WATER. 10. Choose a responsible adult that will be able to drive you home when you are discharged from your hospital stay for your surgery and can stay with you in your home for 24 hours after your procedure. You must NOT drive any vehicle or operate any machinery for 24 hours after surgery. 11. When you dress for your appointment, please wear loose fitting clothing that is appropriate to accommodate your surgical area procedure. BRING WITH YOU ANY DEVICES YOU MAY NEED: DESTIN hose, ice machine, sling/swath, brace or special shoe, oversized zip-up or button up shirt, CPAP machine if staying overnight. 12. Do NOT wear jewelry, watches, or any piercings or metal for surgery- leave these valuables and money at home. 13. Do NOT wear contact lenses for surgery- glasses are okay if needed. 14. The anesthesiologist will talk with you the day of surgery and will ask you to sign a Consent Form. 15. Refrain from smoking or any type of tobacco use for at least 8 hours and marijuana for 24 hours prior to arrival for your surgery. 16. If a GREEN BLOOD band is given to you, please bring it with you for the day of surgery. 17. Notify your surgeon if you develop any illness before your surgery. 18. If you are staying overnight, please DO NOT BRING your home medications with you. 19. If you have any questions prior to surgery, please call the Preadmission Testing office at [phone], Mon.-Fri. 7 a.m.-3 p.m. Leave a voicemail if needed. Pre-Surgery Instructions: Medication Instructions clotrimazole (LOTRIMIN) 1 % cream Stop taking 0 days prior to procedure cyclobenzaprine (FLEXERIL) 10 mg tablet Stop taking 0 days prior to procedure fluticasone propionate (FLONASE) 50 mcg/actuation nasal spray Stop taking 0 days prior to procedure loratadine (CLARITIN) 10 mg tablet Take morning of procedure if needed phentermine (ADIPEX-P) 37.5 mg tablet Stop taking 0 days prior to procedure sod sulf-pot chloride-mag sulf 1.479-0.188- 0.225 gram tablet Check with prescribing doctor for instructions documented in this encounter [facility] 02-16-2024 History of Present illness Narrative Images from the original note were not included. Chief Complaint: Colon cancer screening History of Present Illness Tereza Ceja is a 48 y.o. female who presents to the office for colon cancer screening. This is her first screening colonoscopy. She denies diarrhea, constipation, abdominal pain, melena, hematochezia, unexplained weight loss. There is no family history of colon cancer. Review of Systems Constitutional: Negative for fever and unexpected weight change. HENT: Negative for trouble swallowing. Respiratory: Negative for shortness of breath. Cardiovascular: Negative for chest pain. Gastrointestinal: Negative for nausea, vomiting, abdominal pain, diarrhea, constipation, blood in stool and black tarry stool. Genitourinary: Negative for dysuria and difficulty urinating. Musculoskeletal: Negative for gait problem. Skin: Negative for rash and wound. Neurological: Negative for dizziness, weakness and light-headedness. Hematological: Does not bruise/bleed easily. Psychiatric/Behavioral: Negative for confusion. Past Medical History: Diagnosis Date Sciatica T.T.P. syndrome (CMS-HCC) Past Surgical History: Procedure Laterality Date APPENDECTOMY SECTION x2 CHOLECYSTECTOMY HYSTERECTOMY TONSILLECTOMY Allergies Allergen Reactions Metoclopramide Hcl Anaphylaxis and Shortness Of Breath Sulfa (Sulfonamide Antibiotics) Naproxen Rash TTP reaction Current Outpatient Medications: cyclobenzaprine (FLEXERIL) 10 mg tablet, Take 1 tablet (10 mg total) by mouth 2 (two) times a day as needed., Disp: , Rfl: fluconazole (DIFLUCAN) 200 mg tablet, Take 1 tablet (200 mg total) by mouth in the morning., Disp: , Rfl: loratadine (CLARITIN) 10 mg tablet, Take 1 tablet (10 mg total) by mouth in the morning., Disp: 30 tablet, Rfl: 0 nystatin (MYCOSTATIN) powder, Apply 1 Application topically in the morning and 1 Application at noon and 1 Application in the evening and 1 Application before bedtime., Disp: 15 g, Rfl: 0 phentermine (ADIPEX-P) 37.5 mg tablet, Take 1 tablet (37.5 mg total) by mouth every morning before breakfast., Disp: , Rfl: sod sulf-pot chloride-mag sulf 1.479-0.188- 0.225 gram tablet, Please see instructional sheet given by physicians office., Disp: 24 tablet, Rfl: 0 Social History Socioeconomic History Marital status: Single Spouse name: Not on file Number of children: Not on file Years of education: Not on file Highest education level: Not on file Occupational History Not on file Tobacco Use Smoking status: Every Day Current packs/day: 0.50 Average packs/day: 0.5 packs/day for 15.0 years (7.5 ttl pk-yrs) Types: Cigarettes Smokeless tobacco: Never Vaping Use Vaping status: Never Used Substance and Sexual Activity Alcohol use: Yes Comment: occasional Drug use: Never Sexual activity: Defer Other Topics Concern Not on file Social History Narrative Not on file Social Determinants of Health Financial Resource Strain: Low Risk (02/04/2024) Received from [facility] Overall Financial Resource Strain (CARDIA) Difficulty of Paying Living Expenses: Not very hard Food Insecurity: No Food Insecurity (02/04/2024) Received from [facility] Hunger Vital Sign Worried About Running Out of Food in the Last Year: Never true Ran Out of Food in the Last Year: Never true Transportation Needs: No Transportation Needs (02/04/2024) Received from [facility] PRAPARE - Transportation Lack of Transportation (Medical): No Lack of Transportation (Non-Medical): No Physical Activity: Insufficiently Active (02/04/2024) Received from [facility] Exercise Vital Sign Days of Exercise per Week: 3 days Minutes of Exercise per Session: 40 min Stress: Not on file Social Connections: Moderately Isolated (02/04/2024) Received from [facility] Social Connection and Isolation Panel [NHANES] Frequency of Communication with Friends and Family: More than three times a week Frequency of Social Gatherings with Friends and Family: Once a week Attends Restorationism Services: More than 4 times per year Active Member of Clubs or Organizations: No Attends Club or Organization Meetings: Never Marital Status: Never Interpersonal Safety: Not on file Housing Instability: High Risk (02/04/2024) Received from [facility] Housing Stability Vital Sign Unable to Pay for Housing in the Last Year: Yes Number of Times Moved in the Last Year: Not on file Homeless in the Last Year: Not on file History reviewed. No pertinent family history. Objective Physical Exam Constitutional: General: She is not in acute distress. Appearance: Normal appearance. She is not ill-appearing. HENT: Head: Normocephalic and atraumatic. Mouth/Throat: Mouth: Mucous membranes are moist. Eyes: Pupils: Pupils are equal, round, and reactive to light. Cardiovascular: Rate and Rhythm: Normal rate. Pulmonary: Effort: Pulmonary effort is normal. No respiratory distress. Abdominal: General: There is no distension. Palpations: Abdomen is soft. Tenderness: There is no abdominal tenderness. Musculoskeletal: General: Normal range of motion. Skin: General: Skin is warm and dry. Neurological: Mental Status: She is alert and oriented to person, place, and time. Mental status is at baseline. Vital Signs: Blood pressure 121/74, height 154.9 cm (5' 1 ). Respiratory Source: No data recorded Admission Weight: Labs Lab Results Component Value Date WBC 8.5 01/02/2019 HGB 12.9 01/02/2019 HCT 39.7 01/02/2019 MCV 85 01/02/2019 PLT 193 01/02/2019 Lab Results Component Value Date GLU 119 (H) 01/02/2019 CALCIUM 9.4 01/02/2019 K 3.5 01/02/2019 CO2 24 01/02/2019 CL 107 01/02/2019 BUN 12 01/02/2019 CREATININE 0.74 01/02/2019 No results found for: AMYLASE Lab Results Component Value Date LIPASE 25 01/02/2019 Lab Results Component Value Date ALT 17 01/02/2019 AST 18 01/02/2019 ALKPHOS 69 01/02/2019 Lab Results Component Value Date INR 1.1 05/20/2013 PROTIME 11.6 05/20/2013 Assessment Tereza Ceja is a 48 y.o.female who presents to the office for screening colonoscopy. Plan Colonoscopy with possible biopsy and/or polypectomy. Risks, benefits, and alternatives discussed with patient. Educated on bowel evacuation preparation. Patient verbalizes understanding and wishes to proceed. Evaluation included: Preparing to see the patient (e.g., review of tests) Obtaining and/or reviewing separately obtained history Performing a medically appropriate examination and/or evaluation Counseling and educating the patient/family/caregiver Referring and communicating with other health childcare center director Encounter for screening colonoscopy [Z12.11] SIMTHA SHEPHERD [facility] General Surgery [place] This note was created with the assistance of a speech recognition program. While intending to generate a timely document that accurately reflects the content of the visit, no guarantee can be provided that every grammatical or spelling mistake has been or will be identified or corrected. Thank you for your understanding. SMITHA Shepherd 02/16/24 1129 documented in this encounter [facility] 02-15-2024 Miscellaneous Notes 02/09 Order received 02/14 Called PT to schedule sleep study, VM is full sent a letter. CPAP Order and 02/10/24 M. Lucreciaerer Notes in MM documented in this encounter [facility] 02-15-2024 Telephone encounter Note 02/09 Order received 02/14 Called PT to schedule sleep study, VM is full sent a letter. CPAP Order and 02/10/24 M. Naderer Notes in MM [facility] Evaluation note Diagnosis Onset Date Hay fever acute Yeast dermatitis [facility] Work Phone: Evaluation note* Diagnosis DDD (degenerative disc disease), cervical Degeneration of cervical intervertebral disc [facility]* Diagnosis DDD (degenerative disc disease), cervical- Primary Degeneration of cervical intervertebral disc Degeneration of intervertebral disc of lumbar region with discogenic back pain Gastroesophageal reflux disease without esophagitis Esophageal reflux History of TTP (thrombotic thrombocytopenic purpura) documented [facility]* Diagnosis Spasm of right trapezius muscle- Primary LUIZ (obstructive sleep apnea) Obstructive sleep apnea (adult) (pediatric) Skin candidiasis Candidiasis of skin and nails Prediabetes Other abnormal glucose Morbid obesity due to excess calories ([facility]/HCC) Breast cancer screening by mammogram Colon cancer screening Special screening for malignant neoplasms, colon Menopausal syndrome (hot flashes)- Primary Symptomatic menopausal or female climacteric states Drug-induced constipation Other constipation Morbid obesity due to excess calories (CMS/HCC) Chronic right shoulder pain Pain in joint, shoulder region Body mass index (BMI) 40.0-44.9, adult (CMS/HCC) Prediabetes- Primary Other abnormal glucose Chronic neck pain Cervicalgia Chronic right shoulder pain Pain in joint, shoulder region Morbid obesity due to excess calories (CMS/HCC) Abscess of right axilla Tinea corporis Dermatophytosis of the body DDD (degenerative disc disease), cervical- Primary Degeneration of cervical intervertebral disc Degeneration of intervertebral disc of lumbar region with discogenic back pain Gastroesophageal reflux disease without esophagitis Esophageal reflux History of TTP (thrombotic thrombocytopenic purpura) Dermatitis- Primary Contact dermatitis and other eczema, due to unspecified cause Tinea corporis Dermatophytosis of the body documented [facility]* Diagnosis Prediabetes- Primary Other abnormal glucose Chronic neck pain Cervicalgia Chronic right shoulder pain Pain in joint, shoulder region Morbid obesity due to excess calories (CMS/HCC) Abscess of right axilla Tinea corporis Dermatophytosis of the body documented [facility]* Diagnosis Spasm of right trapezius muscle- Primary LUIZ (obstructive sleep apnea) Obstructive sleep apnea (adult) (pediatric) Skin candidiasis Candidiasis of skin and nails Prediabetes Other abnormal glucose Morbid obesity due to excess calories (CMS/HCC) Breast cancer screening by mammogram Colon cancer screening Special screening for malignant neoplasms, colon Menopausal syndrome (hot flashes)- Primary Symptomatic menopausal or female climacteric states Drug-induced constipation Other constipation Morbid obesity due to excess calories (CMS/HCC) Chronic right shoulder pain Pain in joint, shoulder region Body mass index (BMI) 40.0-44.9, adult (CMS/HCC) Prediabetes- Primary Other abnormal glucose Chronic neck pain Cervicalgia Chronic right shoulder pain Pain in joint, shoulder region Morbid obesity due to excess calories (CMS/HCC) Abscess of right axilla Tinea corporis Dermatophytosis of the body DDD (degenerative disc disease), cervical- Primary Degeneration of cervical intervertebral disc Degeneration of intervertebral disc of lumbar region with discogenic back pain Gastroesophageal reflux disease without esophagitis Esophageal reflux 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 and lower extremity pain- Primary DDD (degenerative disc disease), cervical Degeneration of cervical intervertebral disc Gastroesophageal reflux disease without esophagitis Esophageal reflux Class 2 severe obesity due to excess calories with serious comorbidity and body mass index (BMI) of 39.0 to 39.9 in adult (CMS/HCC) documented in this encounter [facility]* Diagnosis Spasm of right trapezius muscle- Primary LUIZ (obstructive sleep apnea) Obstructive sleep apnea (adult) (pediatric) Skin candidiasis Candidiasis of skin and nails Prediabetes Other abnormal glucose Morbid obesity due to excess calories (CMS/HCC) Breast cancer screening by mammogram Colon cancer screening Special screening for malignant neoplasms, colon Menopausal syndrome (hot flashes)- Primary Symptomatic menopausal or female climacteric states Drug-induced constipation Other constipation Morbid obesity due to excess calories (CMS/HCC) Chronic right shoulder pain Pain in joint, shoulder region Body mass index (BMI) 40.0-44.9, adult ([facility]/HCC) Prediabetes- Primary Other abnormal glucose Chronic neck pain Cervicalgia Chronic right shoulder pain Pain in joint, shoulder region Morbid obesity due to excess calories (CMS/HCC) Abscess of right axilla Tinea corporis Dermatophytosis of the body DDD (degenerative disc disease), cervical- Primary Degeneration of cervical intervertebral disc Degeneration of intervertebral disc of lumbar region with discogenic back pain Gastroesophageal reflux disease without esophagitis Esophageal reflux 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 and lower extremity pain- Primary DDD (degenerative disc disease), cervical Degeneration of cervical intervertebral disc Gastroesophageal reflux disease without esophagitis Esophageal reflux Class 2 severe obesity due to excess calories with serious comorbidity and body mass index (BMI) of 39.0 to 39.9 in adult (CMS/HCC) Well woman exam with routine gynecological exam Routine gynecological examination Breast cancer screening by mammogram Exposure to STD Vaginal discharge Leukorrhea, not specified as infective Insulin resistance Other abnormal glucose Sexually transmitted disease exposure Contact with or exposure to venereal diseases documented in this encounter [facility]* Diagnosis Spasm of right trapezius muscle- Primary LUIZ (obstructive sleep apnea) Obstructive sleep apnea (adult) (pediatric) Skin candidiasis Candidiasis of skin and nails Prediabetes Other abnormal glucose Morbid obesity due to excess calories (CMS/HCC) Breast cancer screening by mammogram Colon cancer screening Special screening for malignant neoplasms, colon Menopausal syndrome (hot flashes)- Primary Symptomatic menopausal or female climacteric states Drug-induced constipation Other constipation Morbid obesity due to excess calories (CMS/HCC) Chronic right shoulder pain Pain in joint, shoulder region Body mass index (BMI) 40.0-44.9, adult (CMS/HCC) Prediabetes- Primary Other abnormal glucose Chronic neck pain Cervicalgia Chronic right shoulder pain Pain in joint, shoulder region Morbid obesity due to excess calories (CMS/HCC) Abscess of right axilla Tinea corporis Dermatophytosis of the body DDD (degenerative disc disease), cervical- Primary Degeneration of cervical intervertebral disc Degeneration of intervertebral disc of lumbar region with discogenic back pain Gastroesophageal reflux disease without esophagitis Esophageal reflux 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 and lower extremity pain- Primary DDD (degenerative disc disease), cervical Degeneration of cervical intervertebral disc Gastroesophageal reflux disease without esophagitis Esophageal reflux Class 2 severe obesity due to excess calories with serious comorbidity and body mass index (BMI) of 39.0 to 39.9 in adult (CMS/HCC) DDD (degenerative disc disease), cervical- Primary Degeneration of cervical intervertebral disc Degeneration of intervertebral disc of lumbar region with discogenic back pain and lower extremity pain Gastroesophageal reflux disease without esophagitis Esophageal reflux Prediabetes Other abnormal glucose Class 2 severe obesity due to excess calories with serious comorbidity and body mass index (BMI) of 37.0 to 37.9 in adult (CMS/HCC) documented in this encounter [facility]* Diagnosis Encounter for screening colonoscopy- Primary Screen for colon cancer Special screening for malignant neoplasms, colon documented in this encounter [facility]* Diagnosis Spasm of right trapezius muscle- Primary LUIZ (obstructive sleep apnea) Obstructive sleep apnea (adult) (pediatric) Skin candidiasis Candidiasis of skin and nails Prediabetes Other abnormal glucose Morbid obesity due to excess calories (CMS/HCC) Breast cancer screening by mammogram Colon cancer screening Special screening for malignant neoplasms, colon Menopausal syndrome (hot flashes)- Primary Symptomatic menopausal or female climacteric states Drug-induced constipation Other constipation Morbid obesity due to excess calories (CMS/HCC) Chronic right shoulder pain Pain in joint, shoulder region Body mass index (BMI) 40.0-44.9, adult (CMS/HCC) Prediabetes- Primary Other abnormal glucose Chronic neck pain Cervicalgia Chronic right shoulder pain Pain in joint, shoulder region Morbid obesity due to excess calories (CMS/HCC) Abscess of right axilla Tinea corporis Dermatophytosis of the body DDD (degenerative disc disease), cervical- Primary Degeneration of cervical intervertebral disc Degeneration of intervertebral disc of lumbar region with discogenic back pain Gastroesophageal reflux disease without esophagitis Esophageal reflux 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 and lower extremity pain- Primary DDD (degenerative disc disease), cervical Degeneration of cervical intervertebral disc Gastroesophageal reflux disease without esophagitis Esophageal reflux Class 2 severe obesity due to excess calories with serious comorbidity and body mass index (BMI) of 39.0 to 39.9 in adult (CMS/HCC) DDD (degenerative disc disease), cervical- Primary Degeneration of cervical intervertebral disc Degeneration of intervertebral disc of lumbar region with discogenic back pain and lower extremity pain Gastroesophageal reflux disease without esophagitis Esophageal reflux Prediabetes Other abnormal glucose Class 2 severe obesity due to excess calories with serious comorbidity and body mass index (BMI) of 37.0 to 37.9 in adult (CMS/HCC) Class 2 severe obesity due to excess calories with serious comorbidity and body mass index (BMI) of 39.0 to 39.9 in adult ([facility]/HCC) documented [facility]* Diagnosis Stroke-like symptoms- Primary Weakness Other malaise and fatigue History of stroke Transient ischemic attack (TIA), and cerebral infarction without residual deficits Migraine without aura and without status migrainosus, not intractable 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 Weakness Other malaise and fatigue TTP (thrombotic thrombocytopenic purpura) ([facility]-HCC) Thrombotic microangiopathy History of thrombectomy History of stroke Transient ischemic attack (TIA), and cerebral infarction without residual deficits Leukocytosis Leukocytosis, unspecified Hypomagnesemia Disorders of magnesium metabolism Acute deep vein thrombosis (DVT) of femoral vein of right lower extremity ([facility]) [facility]* Attachments The following attachments cannot be sent through Care Everywhere. * Weakness ([place]) * Stroke Discharge instructions ([place]) * Bupropion, ADULT ([place] Islander) documented in this encounterProSheltering Arms Hospital SystemInstructionsNot on file documented in this encounterProCommunity Hospital Meiyou SystemInstructionsNot on file documented in this encounterProSheltering Arms Hospital SystemInstructionsNot on file documented in this encounterProSheltering [facility] SystemInstructionsNot on file documented in this encounterProS[facility]tering [facility] SystemInstructionsNot on file documented in this encounterProSheltering [facility] System Chief Complaint and Reason for Visit Chief Complaint allergies/raspy voic e//headache Reason for Visit Hay fever Yeast dermatitis Advance Directives No Advanced Directives Records Found Advance Directive Response Recorded Date/ Time Advance Directives No January 18 12:08pm Date Activated Date Inactivated Comments 12/26/2024 9:33 PM Date Activated Date Inactivated Comments 12/26/2024 9:33 PM 01/05/2025 7:45 PM Date Activated Date Inactivated Comments 01/15/2025 5:05 PM 01/16/2025 5:49 PM Date Activated Date Inactivated Comments 12/26/2024 9:33 PM 01/05/2025 7:45 PM Summary Purpose Family History No Family History Records FoundNo Family History Records FoundNo Family History Records FoundNo Family History Records FoundNo Family History Records Found Additional Source Comments Care Teams (unrecognized sec tion and content) Team Status: Active Member Role Status Dates NON STAFF Primary Care Provider Active Team Status: Inactive Member Role Status Dates Pia Brunner , MANAGER SIGN Attending Provider Active Start: January 19, 2024 End: January 19, 2024 NON STAFF Primary Care Provider Active Start: January 19, 2024 End: January 19, 2024 Head Of Mathematics Relationship Specialty Start Date End Date Destin Hubbard MD [address] [place] [address] PCP - General Family Medicine 01/20/24 Head Of Mathematics Relationship Specialty Start Date End Date Destin Hubbard MD [address] [place] [address] PCP - General Family Medicine 01/20/24 Head Of Mathematics Relationship Specialty Start Date End Date Destin Hubbard MD [address] [place] [address] PCP - General Family Medicine 01/20/24 Head Of Mathematics Relationship Specialty Start Date End Date Destin Hubbard MD [address] [place] [address] PCP - General Family Medicine 01/20/24 Head Of Mathematics Relationship Specialty Start Date End Date Destin Hubbard MD [address] [place] [address] PCP - General Family Medicine 01/20/24 Head Of Mathematics Relationship Specialty Start Date End Date Destin Hubbard MD [address] [place] [address] PCP - General Family Medicine 01/20/24 Head Of Mathematics Relationship Specialty Start Date End Date Destin Hubbard MD [address] [place] [address] PCP - General Family Medicine 01/20/24 Head Of Mathematics Relationship Specialty Start Date End Date Destin Hubbard MD [address] [place] [address] PCP - General Family Medicine 01/20/24 Head Of Mathematics Relationship Specialty Start Date End Date Destin Hubbard MD [address] [place] [address] PCP - General Family Medicine 01/20/24 Head Of Mathematics Relationship Specialty Start Date End Date Destin Hubbard MD [address] [place] [address] PCP - General Family Medicine 01/20/24 Head Of Mathematics Relationship Specialty Start Date End Date Destin Hubbard MD [address] [place] [address] PCP - General Family Medicine 01/20/24 Head Of Mathematics Relationship Specialty Start Date End Date Destin Hubbard MD [address] [place] [address] PCP - General Family Medicine 01/20/24 Head Of Mathematics Relationship Specialty Start Date End Date Destin Hubbard MD [address] [place] [address] PCP - General Family Medicine 01/20/24 Head Of Mathematics Relationship Specialty Start Date End Date Destin Hubbard MD [address] [place] [address] PCP - General Family Medicine 01/20/24 Head Of Mathematics Relationship Specialty Start Date End Date Destin Hubbard MD [address] [place] [address] PCP - General Family Medicine 01/02/19 Head Of Mathematics Relationship Specialty Start Date End Date Destin Hubbard MD [address] [place] [address] PCP - General Family Medicine 01/02/19 Head Of Mathematics Relationship Specialty Start Date End Date Destin Hubbard MD [address] [place] [address] PCP - General Family Medicine 01/02/19 Head Of Mathematics Relationship Specialty Start Date End Date Destin Hubbard MD [address] [place] [address] PCP - General Family Medicine 01/20/24 Destin Hubbard MD [address] [place] [address] [facility] 08/30/24 Head Of Mathematics Relationship Specialty Start Date End Date Destin Hubbard MD PCP - General [facility] 12/26/24 Head Of Mathematics Relationship Specialty Start Date End Date Destin Hubbard MD PCP - [facility] 12/26/24 Head Of Mathematics Relationship Specialty Start Date End Date Destin Hubbard MD PCP - [facility] 12/26/24 Head Of Mathematics Relationship Specialty Start Date End Date Destin Hubbard MD PCP - [facility] 12/26/24 Head Of Mathematics Relationship Specialty Start Date End Date Destin Hubbard MD [address] [place] [address] PCP - General [facility] 01/20/24 Destin Hubbard MD [address] [place] [address] [facility] 08/30/24 Head Of Mathematics Relationship Specialty Start Date End Date Destin Hubbard MD [address] [place] [phone] PCP - General Family Medicine 12/26/24 Goals (unrecognized section and content) Goals may be documented in a n alternate sectionNot on filedocumented as of this encounterNot on filedocumented as of this encounterNot on filedocumented as of this encounterNot on filedocumented as of this encounter INFORMATION SOURCE (unrecogn ized section and content) DATE CREATED AUTHOR 02/18/2024 [facility] DATE CREATED AUTHOR AUTHOR'S ORGANIZ ATION 09/30/2024 [facility] EP[facility] DATE CREATED AUTHOR AUTHOR'S ORGANIZ ATION 01/04/2025 [facility] DATE CREATED AUTHOR AUTHOR'S ORGANIZ ATION 01/16/2025 [facility] DATE CREATED AUTHOR AUTHOR'S ORGANIZ ATION 01/25/2025 [facility] Reason for Visit (unrecogniz ed section and content) Reason Comments Med Change Request Reason Comments Follow-up labwork Reason Comments Follow-up 1m Reason Comments Follow-up 2 Emma 2 weeks ago ba ck pain Reason Comments Well Women Visit Reason Comments Follow-up Reason Onset Date Comments Sleep Lab 02/15/2024 CPAP Reason Comments Colon Cancer Screening SCREENING COLONOS COPY, REF BY DR. HUBBARD` Specialty Diagnoses / Procedures Referred By Contemelia t Referred To Contact General Surgery Diagnoses Colon cancer screening Procedures [place] OFFICE OUTPATIENT VISIT 60-74 MINS HIGH MDM AMB REFERRAL TO GENERAL SURGERY Destin Hubbard MD [address] [place] [address] Gilberto Peoples DO [address] [place] [address] Referral ID Status Reason Start Date Expiration Date Visits Re quested Visits Authorized [id number] Closed 02/10/2024 08/08/2024 1 1 Reason Onset Date Comments Med Refill 10/16/2024 Reason Onset Date Comments TTP LOW PLATELET COUNT 12/26/2024 Reason Onset Date Comments Consult 12/30/2024 Reason Onset Date Comments orders 12/30/2024 Reason Comments Stroke Alert Specialty Diagnoses / Procedures Referred By Jasbir t Referred To Contact Diagnoses Weakness Moris Rice MD [address] [facility] [place] [address] Phone: tel: fax: Referral ID Status Reason Start Date Expiration Date Visits Re quested Visits Authorized [id number] 1 1 Scheduled Active and Recently Administ ered Medications (unrecognized section and content) Medication Order 01/14/2025 01/15/2025 01/16/2025 apixaban (ELIQUIS) [...] 2151 (Given - Provider: Abdirashid Hernandez RN) 58 (Given - Provider: Kayce Valverde, RN) atorvastatin [...] 2151 (Given - Provider: Abdirashid Hernandez RN) 08 (Given - Provider: Kayce Valverde, FELICITAS) ibuprofen [...] minutes before or immediately after a meal. 2156 (Given - Provider: Abdirashid Hernandez RN) Continuous Medication Order 01/14/2025 01/15/2025 01/16/2025 sodium [...] (Given - Provider: Poonam Madrigal - Comment: [id number]) LORazepam (ATIVAN) injection 1 mg (COMPLETED) 1 [...] at 1522 1527 (Given - Provider: Poonam Madrigal)1831 (Given - Provider: Catrachita Diego RN) sodium chloride 0.9 % flush bag 25 [...] Give with a full glass of water. Dialysis Access Sites (unrec ognized section and content) Type Status Location Placement Date Removal Da te Hemodialysis Catheter Triple 12/30/24 Uncuffed Right Internal Jugular Inactive Right Neck (side) - Anterior 12/30/2024 01/05/2025 FOR RECORDS PERTAINING TO PATIENTS WHO ARE OR HAVE BEEN ENROLLED IN A CHEMICAL DEPENDENCY/SUBSTANCEABUSE PROGRAM, SOME INFORMATION MAY BE OMITTED. This clinical summary was aggregated from multiple sources. Caution should be exercised in using it in the provision of clinical care. This summary normalizes information from multiple sources, and as a consequence, information in this document may materially change the coding, format and clinical context of patient data. In addition, data may be omitted in some cases. CLINICAL DECISIONS SHOULD BE BASED ON THE PRIMARY CLINICAL RECORDS. [facility]. provides no warranty or guarantee of the accuracy or completeness of information in this document.
[2025-01-27 13:35] LABS: Hematocrit 44.2 % (36.0-48.0); Mean Corpuscular HGB Conc 31.7 g/dL (29.9-35.2); Mean Corpuscular Hemoglobin 29.4 pg (26.7-34.0); Mean Corpuscular Volume 92.7 fL (81.0-99.0); Mean Platelet Volume 9.4 fL (9.5-13.5); Platelet Count 166 10^3/uL (150-450); Red Blood Count 4.77 10^6/uL (4.20-5.40); Red Cell Distribution Width 16.5 % (11.0-15.0); White Blood Count 10.5 10^3/uL (4.0-11.0)
[2025-01-27 13:47] LABS: HCG Qualitative NEGATIVE (NEGATIVE); Internal Control Within Normal Limits
[2025-01-27 13:54] LABS: Alanine Aminotransferase 53 U/L (14-59); Albumin Level 3.5 g/dL (3.4-5.0); Alkaline Phosphatase 95 U/L (46-116); Anion Gap 13.8; Aspartate Amino Transferase 15 U/L (15-37); BUN Creatinine Ratio 24.2; Bilirubin Total 0.5 mg/dL (0.2-1.0); Calcium 9.5 mg/dL (8.5-10.1); Chloride 100 mmol/L (98-107); Estimated GFR (African America >60 (>=60 mL/min/1.73m^2); Estimated GFR (Non-African Ame >60 (>=60 mL/min/1.73m^2); Globulin 3.5 g/dL; Glucose 159 mg/dL (74-106); Lymphocytes Absolute Manual 1.89 10^3/uL (1.20-3.80); Monocytes Absolute Manual 0.63 10^3/uL (0.30-0.80); Potassium 4.8 mmol/L (3.5-5.1); Segmented Neut Absolute Manual 7.98 10^3/uL (1.4-6.5); Sodium 136 mmol/L (136-145); Troponin I High Sensitivity 13.1 pg/mL (4.0-51.3)
[2025-01-27 15:33] LABS: Bilirubin Urine NEGATIVE (NEGATIVE); Blood Urine NEGATIVE (NEGATIVE); Clarity Urine CLEAR (CLEAR); Color Urine LT. YELLOW (YELLOW); Glucose Urine UA NEGATIVE (NEGATIVE); Ketones Urine NEGATIVE (NEGATIVE); Leukocyte Esterase Urine NEGATIVE (NEGATIVE); Nitrite Urine NEGATIVE (NEGATIVE); Protein Urine NEGATIVE (NEG/TRACE); Urobilinogen Urine 0.2 EU/dL (0.2-1.0)
[2025-01-27 15:34] LABS: Urine Microscopic Indicated NO
--- NOTE | 2025-01-27 15:52 | ED.CHESTPAI1 ---
HPI - Chest Pain General Chief Complaint: Chest Pain Stated Complaint: CHEST PAINS BACK PAIN Time Seen by Provider: 01/27/25 13:08 Source: patient Mode of arrival: ambulance Limitations: no limitations History of Present Illness HPI narrative: The patient is a 49-year-old female who was diagnosed with a stroke almost a month ago was coming to the ER with a complaint of left chest pain the patient mentioned that the pain started this morning all of a sudden, there was no fall or trauma there was no other concerns, the pain comes whenever she take a deep breath or moves, the patient have a history of 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 according to her mother at the bedside After the stroke the patient has been having some speech difficulty but she also have some weakness but able to ambulate with a walker The patient does not show any deviation or any acute finding at the moment and she was already provided with a Toradol by the EMS after which her pain is better Related Data Home Medications ?Medication ?Instructions ?Recorded ?Confirmed apixaban 5 mg tablet (Eliquis) 5 mg PO Q12H 01/22/25 01/22/25 aspirin 81 mg tablet,delayed 81 mg PO DAILY 01/22/25 01/22/25 release atorvastatin 40 mg tablet 40 mg PO .QHS 01/22/25 01/22/25 bupropion HCl 150 mg 24 hr tablet, 150 mg PO DAILY 01/22/25 01/22/25 extended release cyanocobalamin (vitamin B-12) 1,000 mcg PO DAILY 01/22/25 01/22/25 1,000 mcg tablet lorazepam 0.5 mg tablet 0.5 mg PO Q12H PRN anxiety 01/22/25 01/22/25 nystatin 100,000 unit/gram topical 1 applic topical BID 01/22/25 01/22/25 powder pantoprazole 40 mg tablet,delayed 40 mg PO DAILY 01/22/25 01/22/25 release sennosides 8.6 mg-docusate sodium 1 tab-cap PO BID PRN constipation 01/22/25 01/22/25 50 mg tablet (Senexon-S) Previous Rx's ?Medication ?Instructions ?Recorded acetaminophen 650 mg 650 mg PO Q8H PRN pain #20 tabs 01/27/25 tablet,extended release (Tylenol Arthritis Pain) Allergies Allergy/AdvReac Type Severity Reaction Status Date / Time metoclopramide (From Reglan) Allergy Severe Difficulty Verified 01/22/25 01:24 Breathing Sulfa (Sulfonamide Allergy Severe Difficulty Verified 01/22/25 01:24 Antibiotics) Breathing naproxen AdvReac Severe Unknown Verified 01/22/25 01:24 Review of Systems ROS Status of ROS 10 or more systems reviewed and unremarkable except as noted in history and below PFSH PFSH Social History Little interest or pleasure in doing things: not at all Feeling down, depressed, or hopeless: not at all Exam Narrative Exam Narrative: Nurses notes and vital signs reviewed and patient is not hypoxic. General: Well-appearing and in no apparent distress. Skin: Warm, dry, no pallor noted. No rash. Head: Normocephalic, atraumatic. Neck: Supple, non-tender. Eye: Pupils are equal, round and EOMI. No scleral icterus. Ears, Nose, Mouth, and Throat: TM are clear, no nasal mucosal hypertrophy. Oral mucosa is moist, no posterior oropharynx erythema, uvula is mid-line Cardiovascular: Regular Rate and Rhythm without murmur, gallop or rub. Respiratory: No accessory muscle use or respiratory distress. Lungs are clear to auscultation, no wheezing, rales or rhonchi Chest Wall: Tenderness upon palpation of the left chest wall just below the breast with no rash and the tenderness is on superficial palpation Back: No midline thoracic or lumbar vertebral tenderness. No CVA tenderness Musculoskeletal: normal ROM, no calf or popliteal tenderness, no lower extremity edema/swelling GI: Abdomen is soft, non-distended. Normal bowel sounds. No masses appreciated. No tenderness to palpation. No rebound, guarding, or rigidity noted. Neurological: A&O x4. No cranial nerve dysfunction observed. Constitutional Vital Signs, click to edit/add: Last Vital Signs Temp 98.2 F 01/27/25 13:02 Pulse 67 01/27/25 15:09 Resp 20 01/27/25 15:09 BP 113/83 01/27/25 15:09 Pulse Ox 95 01/27/25 15:09 O2 Del Method Room Air 01/27/25 15:09 Course Vital Signs Vital signs: Vital Signs Temperature 98.2 F 01/27/25 13:02 Pulse Rate 73 01/27/25 13:02 Respiratory Rate 16 01/27/25 13:02 Blood Pressure 103/77 01/27/25 13:02 Pulse Oximetry 100 01/27/25 13:02 Oxygen Delivery Method Room Air 01/27/25 13:02 Temperature 98.2 F 01/27/25 13:02 Pulse Rate 67 01/27/25 15:09 Respiratory Rate 20 01/27/25 15:09 Blood Pressure 113/83 01/27/25 15:09 Pulse Oximetry 95 01/27/25 15:09 Oxygen Delivery Method Room Air 01/27/25 15:09 MDM - Chest Pain MDM Narrative Medical decision making narrative: The patient EKG showing sinus rhythm with a heart rate [address] elevation or depression CBC and chemistry showed no acute pathology of the D-dimer not being elevated The patient chest pain is mostly muscular she was already feeling better by the time she got Toradol by the EMS The patient according to her family at the bedside has been feeling depressed she already was diagnosed with depression and she was started on bupropion The patient mentioned sometimes having hallucination and I did discuss with her after making sure that the blood workup showed no acute pathology that she need to make sure that she follow-up with her psychiatrist and primary care for that matter as her medication as well as the stroke in addition to depression also sometimes can cause those hallucination The patient understand Urinalysis showed no UTI and the patient was discharged with supportive care with Tylenol The patient is to follow up with primary care physician in next 2-3 days or to return to the emergency department should any of the signs or symptoms worsen or new symptoms develop. The patient agrees with the following Diagnosis and Treatment plan and the patient will be discharged home. Lab Data Labs: Lab Results 01/27/25 01/27/25 Range/Units 13:29 15:02 WBC 10.5 (4.0-11.0) 10^3/uL RBC 4.77 (4.20-5.40) 10^6/uL Hgb 14.0 (12.0-16.0) g/dL Hct 44.2 (36.0-48.0) % MCV 92.7 (81.0-99.0) fL MCH 29.4 (26.7-34.0) pg MCHC 31.7 (29.9-35.2) g/dL RDW 16.5 H (11.0-15.0) % Plt Count 166 (150-450) 10^3/uL MPV 9.4 L (9.5-13.5) fL Seg Neuts % (Manual) 76.0 H (43.0-75.0) Lymphocytes % (Manual) 18.0 L (20.5-60.0) % Monocytes % (Manual) 6.0 (1.7-12.0) % Eosinophils % (Manual) 0.0 L (0.9-7.0) % Basophils % (Manual) 0.0 L (0.2-2.0) % Neutrophils # (Manual) 7.98 H (1.4-6.5) 10^3/uL Lymphocytes # (Manual) 1.89 (1.20-3.80) 10^3/uL Monocytes # (Manual) 0.63 (0.30-0.80) 10^3/uL Eosinophils # (Manual) 0.00 (0.00-0.70) 10^3/uL Basophils # (Manual) 0.00 (0.00-0.10) 10^3/uL D-Dimer 0.20 (<=0.59) mg/L FEU Sodium 136 (136-145) mmol/L Potassium 4.8 (3.5-5.1) mmol/L Chloride 100 (98-107) mmol/L Carbon Dioxide 27.0 (21.0-32.0) mmol/L Anion Gap 13.8 BUN 22.0 H (7.0-18.0) mg/dL Creatinine 0.91 (0.55-1.02) mg/dL Est GFR ( Amer) >60 (>=60 mL/min/1.73m^2) Est GFR (Non-Af Amer) >60 (>=60 mL/min/1.73m^2) BUN/Creatinine Ratio 24.2 Glucose 159 H (74-106) mg/dL Calcium 9.5 (8.5-10.1) mg/dL Total Bilirubin 0.5 (0.2-1.0) mg/dL AST 15 (15-37) U/L ALT 53 (14-59) U/L Alkaline Phosphatase 95 (46-116) U/L Troponin I High Sens 13.1 (4.0-51.3) pg/mL Total Protein 7.0 (6.4-8.2) g/dL Albumin 3.5 (3.4-5.0) g/dL Globulin 3.5 g/dL Albumin/Globulin Ratio 1.0 Serum HCG, Qual Negative (NEGATIVE) Urine Color Lt. yellow (YELLOW) Urine Clarity Clear (CLEAR) Urine pH 6.0 (5.0-9.0) Ur Specific Shepherd 1.020 (1.005-1.025) Urine Protein Negative (NEG/TRACE) mg/dL Urine Glucose (UA) Negative (NEGATIVE) mg/dL Urine Ketones Negative (NEGATIVE) mg/dL Urine Occult Blood Negative (NEGATIVE) Urine Nitrite Negative (NEGATIVE) Urine Bilirubin Negative (NEGATIVE) Urine Urobilinogen 0.2 (0.2-1.0) EU/dL Ur Leukocyte Esterase Negative (NEGATIVE) Discharge Plan Discharge Chief Complaint: Chest Pain Clinical Impression: Chest wall pain Patient Disposition: Home, Self-Care Time of Disposition Decision: 15:47 Condition: Good Prescriptions / Home Meds: New acetaminophen [Tylenol Arthritis Pain] 650 mg tablet extended release 650 mg PO Q8H PRN (Reason: pain) Qty: 20 0RF No Action atorvastatin 40 mg tablet 40 mg PO .QHS sennosides-docusate sodium [Senexon-S] 8.6-50 mg tablet 1 tab-cap PO BID PRN (Reason: constipation) cyanocobalamin (vitamin B-12) 1,000 mcg tablet 1,000 mcg PO DAILY aspirin 81 mg tablet,delayed release (DR/EC) 81 mg PO DAILY lorazepam 0.5 mg tablet 0.5 mg PO Q12H PRN (Reason: anxiety) pantoprazole 40 mg tablet,delayed release (DR/EC) 40 mg PO DAILY nystatin 100,000 unit/gram powder 1 applic TOPICAL BID bupropion HCl 150 mg tablet extended release 24 hr 150 mg PO DAILY Eliquis 5 mg tablet 5 mg PO Q12H Print Language: Armenian Instructions: Chest Wall Pain (ED) Referrals: Destin Simeon MD [Primary Care Provider, Family Practice] - 1 week Discharge Date/Time: 01/27/25 16:23
== END 2025-01-27 16:23 | disposition home or self-care (01) ==
PROVIDERS: Emergency Provider Emergency Medicine; PCP Family Medicine
DX: R07.89 Other chest pain (principal); R53.1 Weakness
CPT/HCPCS: 36415; 71045; 80053; 81003; 84484; 84703; 85007; 85027; 85378; 93005; 99285

== ENCOUNTER 2025-04-02 13:03 | Outpatient (RCR) | payer OTHER, SELFPAY | END 2025-04-29 09:44 | disposition home or self-care (01) | LOC: PT 13:03 | PROVIDERS: PCP Family Medicine; Visit Provider Psychiatry & Neurology Neurology | DX: R53.1 Weakness (principal); Z86.73 Personal history of transient ischemic attack (TIA), and cerebral infarction without residual deficits; H53.47 Heteronymous bilateral field defects | CPT/HCPCS: 97110; 97162; 97530 ==

== ENCOUNTER 2025-04-02 13:16 | Outpatient (RCR) | payer OTHER, SELFPAY | END 2025-04-29 09:45 | disposition home or self-care (01) | LOC: OT 13:16 | PROVIDERS: PCP Family Medicine; Visit Provider Psychiatry & Neurology Neurology | DX: R53.1 Weakness (principal); Z86.73 Personal history of transient ischemic attack (TIA), and cerebral infarction without residual deficits; H53.47 Heteronymous bilateral field defects | CPT/HCPCS: 97110; 97167; 97530 ==

== ENCOUNTER 2025-04-02 13:17 | Outpatient (RCR) | payer OTHER, SELFPAY | END 2025-04-29 09:45 | disposition home or self-care (01) | LOC: ST 13:17 | PROVIDERS: PCP Family Medicine; Visit Provider Psychiatry & Neurology Neurology | DX: R53.1 Weakness (principal); Z86.73 Personal history of transient ischemic attack (TIA), and cerebral infarction without residual deficits; R47.9 Unspecified speech disturbances; H53.47 Heteronymous bilateral field defects | CPT/HCPCS: 92507; 92523; 97110; 97112; 97116; 97162; 97167; 97530 ==

== ENCOUNTER 2025-05-01 09:47 | Outpatient (RCR) | payer OTHER, SELFPAY | END 2025-05-02 06:57 | disposition home or self-care (01) | LOC: PT 09:47 | PROVIDERS: PCP Family Medicine; Visit Provider Family Medicine | DX: D50.9 Iron deficiency anemia, unspecified (principal); Z86.73 Personal history of transient ischemic attack (TIA), and cerebral infarction without residual deficits; R53.1 Weakness; H53.47 Heteronymous bilateral field defects; M31.19 Other thrombotic microangiopathy; Z79.01 Long term (current) use of anticoagulants; Z79.82 Long term (current) use of aspirin; Z83.718 Family history of other colon polyps; Z87.891 Personal history of nicotine dependence; G40.909 Epilepsy, unspecified, not intractable, without status epilepticus | CPT/HCPCS: 97110; 97112; 97530; G0463 ==

== ENCOUNTER 2025-05-01 09:53 | Outpatient (RCR) | payer OTHER, SELFPAY | END 2025-05-09 06:58 | disposition home or self-care (01) | LOC: OT 09:53 | PROVIDERS: PCP Family Medicine; Visit Provider Family Medicine | DX: R53.1 Weakness (principal); H53.47 Heteronymous bilateral field defects; Z86.73 Personal history of transient ischemic attack (TIA), and cerebral infarction without residual deficits | CPT/HCPCS: 97110; 97530 ==

== ENCOUNTER 2025-05-01 09:57 | Outpatient (RCR) | payer OTHER, SELFPAY | END 2025-05-29 11:24 | disposition home or self-care (01) | LOC: ST 09:57 | PROVIDERS: PCP Family Medicine; Visit Provider Family Medicine | DX: R53.1 Weakness (principal); R47.9 Unspecified speech disturbances; Z86.73 Personal history of transient ischemic attack (TIA), and cerebral infarction without residual deficits ==

== ENCOUNTER 2025-05-29 14:57 | Outpatient (RCR) | payer OTHER, SELFPAY | END 2025-05-29 23:59 | disposition home or self-care (01) | LOC: HEMC 14:57 | PROVIDERS: PCP Family Medicine; Visit Provider Internal Medicine Hematology & Oncology | DX: M31.19 Other thrombotic microangiopathy (principal); Z79.01 Long term (current) use of anticoagulants; Z79.82 Long term (current) use of aspirin; Z86.73 Personal history of transient ischemic attack (TIA), and cerebral infarction without residual deficits; Z86.718 Personal history of other venous thrombosis and embolism; Z87.891 Personal history of nicotine dependence; D50.9 Iron deficiency anemia, unspecified; G40.909 Epilepsy, unspecified, not intractable, without status epilepticus | CPT/HCPCS: G0463 ==

== ENCOUNTER 2025-08-21 14:06 | Outpatient (RCR) | payer OTHER, SELFPAY | END 2025-08-29 23:59 | disposition home or self-care (01) | LOC: HEMC 14:06 | PROVIDERS: PCP Family Medicine; Visit Provider Internal Medicine Hematology & Oncology | DX: M31.19 Other thrombotic microangiopathy (principal) | CPT/HCPCS: G0463 ==